=== PATIENT | male | born 1945 | race Caucasian/White ===

== ENCOUNTER 2022-09-26 06:32 | Outpatient (OUT) | payer MEDICARE, SELFPAY ==
[2022-09-26 07:20] LABS: Basophils Percent Auto 0.5 % (0.2-2.0); Eosinophils Absolute Auto 0.2 10^3/uL (0.0-0.7); Eosinophils Percent Auto 2.1 % (0.9-7.0); Hematocrit 39.8 % (42.0-54.0); Hemoglobin 12.9 g/dL (14.0-18.0); Immature Granulocytes Abs Auto 0.04 10^3/uL (0.00-0.03); Immature Granulocytes Pct Auto 0.5 % (0.0-0.5); Lymphocytes Absolute Auto 2.2 10^3/uL (1.2-3.8); Lymphocytes Percent Auto 25.1 % (20.5-60.0); Mean Corpuscular HGB Conc 32.4 g/dL (29.9-35.2); Mean Corpuscular Hemoglobin 31.1 pg (25.9-34.0); Mean Corpuscular Volume 95.9 fL (80.0-94.0); Mean Platelet Volume 8.5 fL (9.5-13.5); Monocytes Absolute Auto 0.8 10^3/uL (0.3-0.8); Monocytes Percent Auto 9.3 % (1.7-12.0); Neutrophils Absolute Auto 5.5 10^3/uL (1.4-6.5); Neutrophils Percent Auto 62.5 % (43.0-75.0); Platelet Count 363 10^3/uL (150-450); Red Blood Count 4.15 10^6/uL (4.70-6.10); Red Cell Distribution Width 12.9 % (11.0-15.0); White Blood Count 8.9 10^3/uL (4.0-11.0)
[2022-09-26 07:26] LABS: Alanine Aminotransferase 22 U/L (16-63); Albumin Globulin Ratio 0.8; Albumin Level 3.3 g/dL (3.4-5.0); Alkaline Phosphatase 87 U/L (46-116); Anion Gap 8.6; Aspartate Amino Transferase 17 U/L (15-37); BUN Creatinine Ratio 19.2; Bilirubin Total 0.2 mg/dL (0.2-1.0); Carbon Dioxide 31.7 mmol/L (21.0-32.0); Chloride 101 mmol/L (98-107); Chol HDL Ratio 2.7; Cholesterol 154 mg/dL (<=200); Estimated GFR (African America >60 (>=60); Estimated GFR (Non-African Ame >60 (>=60); Globulin 4.1 g/dL; Glucose 111 mg/dL (74-106); HDL Cholesterol 57 mg/dL (40-60); Potassium 4.3 mmol/L (3.5-5.1); Sodium 137 mmol/L (136-145); Total Protein 7.4 g/dL (6.4-8.2); Triglycerides 75 mg/dL (<=150)
[2022-09-26 07:32] LABS: Estimated Average Glucose 103 mg/dL; Glycohemoglobin A1C 5.2 % (4.5-6.2)
[2022-09-27 03:07] LABS: Vitamin B12 472 pg/mL (232-1245)
== END 2022-09-26 06:33 | disposition home or self-care (01) ==
LOC: LAB 06:33
PROVIDERS: PCP Family Medicine; Visit Provider Family Medicine
DX: E78.5 Hyperlipidemia, unspecified (principal); R73.9 Hyperglycemia, unspecified; D64.9 Anemia, unspecified; Z79.899 Other long term (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 therapy
CPT/HCPCS: 36415; 80053; 80061; 82607; 82746; 83036; 85025

== ENCOUNTER 2022-10-05 09:50 | Outpatient (OUT) | payer MEDICARE, SELFPAY ==
[2022-10-05 11:30] LABS: Prostate Specific Antigen Dx 2.33 ng/mL (<=4.00)
== END 2022-10-05 09:51 | disposition home or self-care (01) ==
LOC: LAB 09:51
PROVIDERS: PCP Family Medicine; Visit Provider Urology
DX: N40.1 Benign prostatic hyperplasia with lower urinary tract symptoms (principal)
CPT/HCPCS: 36415; 84153

== ENCOUNTER 2023-04-03 09:25 | Outpatient (OUT) | payer MEDICARE, SELFPAY ==
[2023-04-03 09:41] LABS: Basophils Percent Auto 0.4 % (0.2-2.0); Eosinophils Absolute Auto 0.2 10^3/uL (0.0-0.7); Eosinophils Percent Auto 1.8 % (0.9-7.0); Hematocrit 44.8 % (42.0-54.0); Hemoglobin 14.5 g/dL (14.0-18.0); Immature Granulocytes Abs Auto 0.03 10^3/uL (0.00-0.03); Immature Granulocytes Pct Auto 0.4 % (0.0-0.5); Lymphocytes Absolute Auto 2.5 10^3/uL (1.2-3.8); Lymphocytes Percent Auto 29.6 % (20.5-60.0); Mean Corpuscular HGB Conc 32.4 g/dL (29.9-35.2); Mean Corpuscular Hemoglobin 30.7 pg (25.9-34.0); Mean Corpuscular Volume 94.7 fL (80.0-94.0); Mean Platelet Volume 8.8 fL (9.5-13.5); Monocytes Absolute Auto 0.7 10^3/uL (0.3-0.8); Neutrophils Absolute Auto 5.1 10^3/uL (1.4-6.5); Neutrophils Percent Auto 59.8 % (43.0-75.0); Platelet Count 249 10^3/uL (150-450); Red Blood Count 4.73 10^6/uL (4.70-6.10); Red Cell Distribution Width 12.4 % (11.0-15.0); White Blood Count 8.5 10^3/uL (4.0-11.0)
[2023-04-03 10:38] LABS: Alanine Aminotransferase 19 U/L (16-63); Albumin Globulin Ratio 0.9; Albumin Level 3.7 g/dL (3.4-5.0); Alkaline Phosphatase 66 U/L (46-116); Anion Gap 9.1; Aspartate Amino Transferase 14 U/L (15-37); BUN Creatinine Ratio 22.4; Bilirubin Total 0.4 mg/dL (0.2-1.0); Calcium 9.7 mg/dL (8.5-10.1); Carbon Dioxide 32.2 mmol/L (21.0-32.0); Chloride 102 mmol/L (98-107); Chol HDL Ratio 2.8; Cholesterol 182 mg/dL (<=200); Estimated GFR (African America >60 (>=60); Estimated GFR (Non-African Ame >60 (>=60); Glucose 103 mg/dL (74-106); HDL Cholesterol 64 mg/dL (40-60); Potassium 4.3 mmol/L (3.5-5.1); Sodium 139 mmol/L (136-145); Total Protein 7.7 g/dL (6.4-8.2); Triglycerides 79 mg/dL (<=150); VLDL CHOLESTEROL 15.8 mg/dL
[2023-04-03 10:44] LABS: Estimated Average Glucose 117 mg/dL; Glycohemoglobin A1C 5.7 % (4.5-6.2)
== END 2023-04-03 09:26 | disposition home or self-care (01) ==
LOC: LAB 09:25
PROVIDERS: PCP Family Medicine; Visit Provider Family Medicine
DX: E78.5 Hyperlipidemia, unspecified (principal); R73.9 Hyperglycemia, unspecified; D64.9 Anemia, unspecified; Z79.899 Other long term (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 therapy; R63.4 Abnormal weight loss
CPT/HCPCS: 36415; 80053; 80061; 82607; 82746; 83036; 84443; 85025

== ENCOUNTER 2023-06-27 14:10 | Emergency (ER) | payer MEDICARE, SELFPAY ==
[2023-06-27 14:14] VITALS: BP 146/87; PULSE 80; TEMP 36.4; O2SAT 98; BMI 25.1
--- NOTE | 2023-06-27 14:21 | PC.NURSE ---
red round raised abscess observed under left arm, no drainage observed
--- NOTE | 2023-06-28 15:01 | ED_ITS ---
Documented by User: Kimber Jainey 06/28/23 15:04 HPI - Skin/Abscess/Foreign Bdy General Chief complaint: Skin/Abscess/Foreign Body Stated complaint: UPPER EXTREMITY PAIN Time Seen by Provider: 06/27/23 14:37 Source: patient Mode of arrival: walk-in Limitations: no limitations History of Present Illness HPI narrative: 77-year-old male presents here with a chief complaint of left axillary pain. He states he has had pain and swelling to the left axilla for the last 3 to 4 days. Denies known history of abscess. Denies known history of MRSA. Small, palpable pea-sized area of induration, no fluctuance. Patient states it is tender. He denies any fevers or chills Related Data Home Medications ?Medication ?Instructions ?Recorded ?Confirmed finasteride 5 mg tablet 5 mg PO DAILY 06/27/23 06/27/23 simvastatin 40 mg tablet 40 mg PO DAILY 06/27/23 06/27/23 tiotropium bromide 2.5 2 inh inhalation Q24H PRN sob 06/27/23 06/27/23 mcg/actuation mist for inhalation (Spiriva Respimat) venlafaxine 75 mg capsule,extended 75 mg PO DAILY 06/27/23 06/27/23 release 24 hr Previous Rx's ?Medication ?Instructions ?Recorded cephalexin 500 mg capsule 500 mg PO Q8H 7 days #21 caps 06/27/23 mupirocin 2 % topical ointment 1 applic topical TID 14 days #15 06/27/23 grams Allergies Allergy/AdvReac Type Severity Reaction Status Date / Time penicillin G Allergy Mild Verified 06/27/23 14:14 Sulfa (Sulfonamide Allergy Mild Verified 06/27/23 14:14 Antibiotics) Review of Systems ROS Narrative All Systems are negative except as noted/marked.All systems reviewed and otherwise negative Exam Narrative Exam Narrative: Nurses note and vital signs reviewed and patient is not hypoxic. General: The patient appears well and in no apparent distress. Patient is resting comfortably on cart. Skin: Warm, dry, no pallor noted. Small papular area of induration to the left axillary area no fluctuance no acute abscess Head: Normocephalic, atraumatic Eye: Normal conjunctiva, no drainage, EOMI. PERRL Ears, Nose, Mouth, and Throat: oral mucosa is moist. Nares patent. Mouth without vesicles. Ear canals patent. Tm's without Erythema GI: Normal bowel sounds, no tenderness to palpation, no masses appreciated. No rebound, guarding, or rigidity noted. Musculoskeletal: The patient has no evidence of calf tenderness, no pitting edema, symmetrical pulses noted bilaterally Neurological: A&O x4, normal speech Psychiatric: Cooperative Constitutional Vital Signs, click to edit/add: Last Vital Signs Temp 97.5 F L 06/27/23 14:14 Pulse 80 06/27/23 14:14 Resp 18 06/27/23 14:14 BP 146/87 H 06/27/23 14:14 Pulse Ox 98 06/27/23 14:14 O2 Del Method Room Air 06/27/23 14:14 Course Vital Signs Vital signs: Vital Signs Temperature 97.5 F L 06/27/23 14:14 Pulse Rate 80 06/27/23 14:14 Respiratory Rate 18 06/27/23 14:14 Blood Pressure 146/87 H 06/27/23 14:14 Pulse Oximetry 98 06/27/23 14:14 Oxygen Delivery Method Room Air 06/27/23 14:14 Temperature 97.5 F L 06/27/23 14:14 Pulse Rate 80 06/27/23 14:14 Respiratory Rate 18 06/27/23 14:14 Blood Pressure 146/87 H 06/27/23 14:14 Pulse Oximetry 98 06/27/23 14:14 Oxygen Delivery Method Room Air 06/27/23 14:14 MDM - Skin/Abscess/Foreign Bdy MDM Narrative Medical decision making narrative: 77-year-old male presents here with a chief complaint of left axillary pain. He states he has had pain and swelling to the left axilla for the last 3 to 4 days. Denies known history of abscess. Denies known history of MRSA. Small, palpable pea-sized area of induration, no fluctuance. Patient states it is tender. He denies any fevers or chills Patient has a small area of induration and tenderness to left axillary area, may be palpable lymph node versus cyst. No abscess at this time. No reason for incision and drainage at this point. Patient told to use warm heat compresses to the area examination consistent with probable hidradenitis or folliculitis. Patient be discharged home with antibiotic. He will follow-up primary care physician. Patient and at bedside agree with plan of care. Medical Records Attestation: I reviewed the patient's medical records. Discharge Plan Discharge Stand Alone Forms: Portal Instructions Chief Complaint: Skin/Abscess/Foreign Body Clinical Impression: Hidradenitis suppurativa Patient Disposition: Home, Self-Care Time of Disposition Decision: 16:19 Condition: Fair Prescriptions / Home Meds: New cephalexin 500 mg capsule 500 mg PO Q8H 7 Days Qty: 21 0RF mupirocin 2 % ointment 1 applic topical TID 14 Days Qty: 15 0RF No Action finasteride 5 mg tablet 5 mg PO DAILY simvastatin 40 mg tablet 40 mg PO DAILY Spiriva Respimat 2.5 mcg/actuation mist 2 inh INHALATION Q24H PRN (Reason: sob) venlafaxine 75 mg capsule,extended release 24hr 75 mg PO DAILY Print Language: [place] Instructions: Hidradenitis Suppurativa (ED) Additional Instructions: Use warm compresses every hour while awake to the area to help with swelling and draining if it occurs. Take oral antibiotic and the ointment for the next 7 to 10 days. Call your truck engine technician/surgeon today or Friday to move up your appointment in 2 weeks for evaluation and definitive treatment if your doctor is able to. Referrals: KEITH ATKINSON [Primary Care Provider] - 1 week Discharge Date/Time: 06/27/23 16:35 Documented by User: Nick Seaman MD 07/02/23 19:53 HPI - Skin/Abscess/Foreign Bdy General Chief complaint: Skin/Abscess/Foreign Body Stated complaint: UPPER EXTREMITY PAIN Time Seen by Provider: 06/27/23 14:37 Related Data Home Medications ?Medication ?Instructions ?Recorded ?Confirmed finasteride 5 mg tablet 5 mg PO DAILY 06/27/23 06/27/23 simvastatin 40 mg tablet 40 mg PO DAILY 06/27/23 06/27/23 tiotropium bromide 2.5 2 inh inhalation Q24H PRN sob 06/27/23 06/27/23 mcg/actuation mist for inhalation (Spiriva Respimat) venlafaxine 75 mg capsule,extended 75 mg PO DAILY 06/27/23 06/27/23 release 24 hr Previous Rx's ?Medication ?Instructions ?Recorded cephalexin 500 mg capsule 500 mg PO Q8H 7 days #21 caps 06/27/23 mupirocin 2 % topical ointment 1 applic topical TID 14 days #15 06/27/23 grams Allergies Allergy/AdvReac Type Severity Reaction Status Date / Time penicillin G Allergy Mild Verified 06/27/23 14:14 Sulfa (Sulfonamide Allergy Mild Verified 06/27/23 14:14 Antibiotics) Exam Constitutional Vital Signs, click to edit/add: Last Vital Signs Temp 97.5 F L 06/27/23 14:14 Pulse 80 06/27/23 14:14 Resp 18 06/27/23 14:14 BP 146/87 H 06/27/23 14:14 Pulse Ox 98 06/27/23 14:14 O2 Del Method Room Air 06/27/23 14:14 Course Vital Signs Vital signs: Vital Signs Temperature 97.5 F L 06/27/23 14:14 Pulse Rate 80 06/27/23 14:14 Respiratory Rate 18 06/27/23 14:14 Blood Pressure 146/87 H 06/27/23 14:14 Pulse Oximetry 98 06/27/23 14:14 Oxygen Delivery Method Room Air 06/27/23 14:14 Temperature 97.5 F L 06/27/23 14:14 Pulse Rate 80 06/27/23 14:14 Respiratory Rate 18 06/27/23 14:14 Blood Pressure 146/87 H 06/27/23 14:14 Pulse Oximetry 98 06/27/23 14:14 Oxygen Delivery Method Room Air 06/27/23 14:14 MDM - Skin/Abscess/Foreign Bdy MDM Narrative Medical decision making narrative: 77-year-old male presents here with a chief complaint of left axillary pain. He states he has had pain and swelling to the left axilla for the last 3 to 4 days. Denies known history of abscess. Denies known history of MRSA. Small, palpable pea-sized area of induration, no fluctuance. Patient states it is tend er. He denies any fevers or chills Patient has a small area of induration and tenderness to left axillary area, may be palpable lymph node versus cyst. No abscess at this time. No reason for incision and drainage at this point. Patient told to use warm heat compresses to the area examination consistent with probable hidradenitis or folliculitis. Patient be discharged home with antibiotic. He will follow-up primary care physician. Patient and at bedside agree with plan of care. I, Dr Seaman, have reviewed the above progress note and course of action in the ER; agree with the above. I have personally seen and evaluated this patient, gone over history and physical, and discussed disposition and treatment plan with the patient. Discharge Plan Discharge Stand Alone Forms: Portal Instructions Chief Complaint: Skin/Abscess/Foreign Body Clinical Impression: Hidradenitis suppurativa Patient Disposition: Home, Self-Care Time of Disposition Decision: 16:19 Condition: Fair Prescriptions / Home Meds: New cephalexin 500 mg capsule 500 mg PO Q8H 7 Days Qty: 21 0RF mupirocin 2 % ointment 1 applic topical TID 14 Days Qty: 15 0RF No Action finasteride 5 mg tablet 5 mg PO DAILY simvastatin 40 mg tablet 40 mg PO DAILY Spiriva Respimat 2.5 mcg/actuation mist 2 inh INHALATION Q24H PRN (Reason: sob) venlafaxine 75 mg capsule,extended release 24hr 75 mg PO DAILY Print Language: [place] Instructions: Hidradenitis Suppurativa (ED) Additional Instructions: Use warm compresses every hour while awake to the area to help with swelling and draining if it occurs. Take oral antibiotic and the ointment for the next 7 to 10 days. Call your truck engine technician/surgeon today or Friday to move up your appointment in 2 weeks for evaluation and definitive treatment if your doctor is able to. Referrals: KEITH ATKINSON [Primary Care Provider] - 1 week Discharge Date/Time: 06/27/23 16:35
== END 2023-06-27 16:35 | disposition home or self-care (01) ==
PROVIDERS: Emergency Provider Emergency Medicine; PCP Family Medicine
DX: L73.2 Hidradenitis suppurativa (principal); Z79.899 Other long term (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 therapy
CPT/HCPCS: 99284

== ENCOUNTER 2023-09-22 08:55 | Emergency (ER) | payer MEDICARE, SELFPAY ==
[2023-09-22 08:59] VITALS: BP 164/98; PULSE 83; TEMP 36.6; O2SAT 97; BMI 23.6
[2023-09-22] MEDS: LIDOCAINE HCL 1% 100 MG/10 ML MDV INJ (09:40)
--- NOTE | 2023-09-22 09:45 | ED.GENADUL1 ---
HPI HPI - General Adult General Chief complaint: Urogenital-Male Stated complaint: BOIL ON RECTUM Time Seen by Provider: 09/22/23 08:57 Source: patient Mode of arrival: walk-in Limitations: no limitations History of Present Illness HPI narrative: 78-year-old male presents for painful raised area on his right buttock. It has been there for few days and there is been no trauma or drainage. He states he spends a lot of time in a wet bathing suit by his pool. No fever or vomiting. The pain is mild. He has never had anything like this before. He is also had a small amount of rash on his feet and he does not have an explanation for it. It has been there for a few weeks. Related Data Home Medications ?Medication ?Instructions ?Recorded ?Confirmed finasteride 5 mg tablet 5 mg PO DAILY 06/27/23 06/27/23 simvastatin 40 mg tablet 40 mg PO DAILY 06/27/23 06/27/23 tiotropium bromide 2.5 2 inh inhalation Q24H PRN sob 06/27/23 06/27/23 mcg/actuation mist for inhalation (Spiriva Respimat) venlafaxine 75 mg capsule,extended 75 mg PO DAILY 06/27/23 06/27/23 release 24 hr Previous Rx's ?Medication ?Instructions ?Recorded cephalexin 500 mg capsule 500 mg PO Q8H 7 days #21 caps 06/27/23 mupirocin 2 % topical ointment 1 applic topical TID 14 days #15 06/27/23 grams cephalexin 500 mg capsule 500 mg PO QID 10 days #40 caps 09/22/23 doxycycline hyclate 100 mg capsule 100 mg PO BID 10 days #20 caps 09/22/23 Allergies Allergy/AdvReac Type Severity Reaction Status Date / Time penicillin G Allergy Mild Verified 09/22/23 08:59 Sulfa (Sulfonamide Allergy Mild Verified 09/22/23 08:59 Antibiotics) Opioid HPI Opioid Management Most Recent Opioid Data: No Data to Display Review of Systems ROS Narrative A ten point review of systems is negative except as noted above. Exam Narrative Exam Narrative: Nurses note and vital signs reviewed and patient is not hypoxic. General: The patient appears well and in no apparent distress. Patient is resting comfortably on cart. Skin: Warm, dry, no pallor noted. There is no rash noted. Head: Normocephalic, atraumatic Eye: Normal conjunctiva, no drainage Ears, Nose, Mouth, and Throat: oral mucosa is moist. Nares patent. Cardiovascular: Regular Rate and Rhythm Respiratory: Patient is in no distress, no accessory muscle use, lungs are clear to auscultation, no wheezing, rales or rhonchi Back: non-tender GI: Soft and nontender. On the medial aspect of the right buttock is an indurated raised erythematous area. There is some areas of what appear to be eczema on the buttock skin as well. The indurated area is 2 cm in diameter. Musculoskeletal: The patient has no evidence of calf tenderness, no pitting edema, symmetrical pulses noted bilaterally Neurological: A&O, normal speech Psychiatric: Cooperative Constitutional Vital Signs, click to edit/add: Last Vital Signs Temp 97.8 F 09/22/23 08:59 Pulse 83 09/22/23 08:59 Resp 20 09/22/23 08:59 BP 164/98 H 09/22/23 08:59 Pulse Ox 97 09/22/23 08:59 O2 Del Method Room Air 09/22/23 08:59 Course Vital Signs Vital signs: Vital Signs Temperature 97.8 F 09/22/23 08:59 Pulse Rate 83 09/22/23 08:59 Respiratory Rate 20 09/22/23 08:59 Blood Pressure 164/98 H 09/22/23 08:59 Pulse Oximetry 97 09/22/23 08:59 Oxygen Delivery Method Room Air 09/22/23 08:59 Temperature 97.8 F 09/22/23 08:59 Pulse Rate 83 09/22/23 08:59 Respiratory Rate 20 09/22/23 08:59 Blood Pressure 164/98 H 09/22/23 08:59 Pulse Oximetry 97 09/22/23 08:59 Oxygen Delivery Method Room Air 09/22/23 08:59 Medical Decision Making MDM Narrative Medical decision making narrative: The packing is to be removed in 24 hours and he was placed on Keflex and doxycycline because of allergies. He has taken Keflex in the past. Treatment diagnosis and follow-up were discussed with the patient and his . Differential Diagnosis Differential Diagnosis: Abscess, cellulitis Discharge Plan Discharge Stand Alone Forms: Portal Instructions Chief Complaint: Urogenital-Male Clinical Impression: Abscess Patient Disposition: Home, Self-Care Time of Disposition Decision: 09:42 Condition: Good Prescriptions / Home Meds: New doxycycline hyclate 100 mg capsule 100 mg PO BID 10 Days Qty: 20 0RF cephalexin 500 mg capsule 500 mg PO QID 10 Days Qty: 40 0RF No Action finasteride 5 mg tablet 5 mg PO DAILY simvastatin 40 mg tablet 40 mg PO DAILY Spiriva Respimat 2.5 mcg/actuation mist 2 inh INHALATION Q24H PRN (Reason: sob) venlafaxine 75 mg capsule,extended release 24hr 75 mg PO DAILY cephalexin 500 mg capsule 500 mg PO Q8H 7 Days Qty: 21 0RF mupirocin 2 % ointment 1 applic topical TID 14 Days Qty: 15 0RF Print Language: Turkmen Instructions: Abscess (ED), Incision and Drainage (ED) Additional Instructions: Packing is to be removed tomorrow. After the packing is removed warm soaks for 10 minutes 4 times a day. Finish all the antibiotics. Referrals: KEITH ATKINSON [Primary Care Provider] - 1 week Procedures ED Procedure Instructions Procedures Procedures: The following procedure was performed by me. Local infiltration was carried out with 1% lidocaine without epinephrine resulting in complete skin anesthesia. The area was prepped with Betadine x 3 and draped sterilely and using a #11 blade the abscess was incised and drained of a small amount of bloody purulence. Packing was placed, quarter inch iodoform. No complications and he tolerated the procedure well.
== END 2023-09-22 10:11 | disposition home or self-care (01) ==
PROVIDERS: Emergency Provider Emergency Medicine; PCP Family Medicine
DX: L02.31 Cutaneous abscess of buttock (principal)
CPT/HCPCS: 10060; 99283

== ENCOUNTER 2023-10-09 09:10 | Outpatient (OUT) | payer MEDICARE, SELFPAY ==
--- OUTSIDE RECORDS SUMMARY | 2023-10-09 09:31 | XMS_ITS | CCD ---
Author Organization [facility] Care Team Providers Care Tin Pourer Name Role Phone Keith Atkinson Unavailable Keith Puente Unavailable Keith Atkinson Primary Care Physician Teetee Gonzalez Unavailable Unavailable GIRVIN, DR PARKER Admitting Unavailable GIRVIN, DR PARKER Attending Unavailable GIRVIN, DR PARKER Consulting Unavailable GIRVIN, DR PARKER Primary Care Unavailable JOY, DR GANN Attending Unavailable JOY, DR GANN Consulting Unavailable JOY, DR GANN Admitting Unavailable GIRVIN, DR PARKER Primary Care Unavailable GIRVIN, DR PARKER Consulting Unavailable GIRVIN, DR PARKER Primary Care Unavailable GIRVIN, DR PARKER Admitting Unavailable GIRVIN, DR PARKER Attending Unavailable GIRVIN, DR PARKER Consulting Unavailable JOY, Moise Bills Attending Unavailable JOY, Moise Bills Attending Unavailable JOY, Moise Bills Attending Unavailable JOY, Moise Bills Admitting Unavailable JOY, Moise R Referring Unavailable JOY, Moise Bills Attending Unavailable JOY, Moise Bills Attending Unavailable Allergies Allergy Classification Reported Allergen(s) Allergy Type Date of Onset Reaction(s) Facility (20 sources) Penicillin; Translations: [penicillin] Drug Allergy hives [facility] Repository (20 sources) Sulfacetamide Drug Allergy [employer] Other (4 sources) Penicillins; Translations: [penicillins] Drug allergy Hives [facility] (4 sources) Sulfonamides (Antibiotic); Translations: [sulfa drugs] Drug allergy Hives [facility] (1 source) Sulfonamides (Antibiotic) Drug allergy (disorder) [facility] Repository Medications Current Medications Medication Drug Class(es) Dates Sig (Normalized) Sig (Original) [id number] 200 actuat albuterol 0.09 mg/actuat metered dose inhaler (8 sources) beta2-Adrenergic Agonist Start: 06-07-2019 ProAir HFA 108 (90 Base) MCG/ACT NICK 2 inhalations Inhalation up to 4 times per day prn May, Active bisacodyl 5 mg delayed release oral tablet (14 sources) Stimulant Laxative Start: 08-02-2021 take 2 tablets by mouth once daily as needed Dulcolax 5 MG 2 tab Orally Once a day prn July, Active ciprofloxacin 500 mg oral tablet (1 source) Quinolone Antimicrobial Start: 05-12-2023 End: 06-09-2023 take 1 tablet by mouth every twelve hours Cipro 500 mg Tab 500 mg = 1 tab(s), Oral, q12hr, X 4 week(s), # 56 tab(s), Refills(s) 0, Pharmacy: [facility]/pharmacy #[id number], 177, cm, 01/27/23 11:11:00 EST, Height/Length Dosing, 74, kg, 01/27/23 11:11:00 EST, Weight Dosing Start Date: 05/12/23 Stop Date: 06/09/23 Status: Ordered Coenzyme Q10 200 mg oral capsule (3 sources) Start: 07-11-2017 take 1 capsule by mouth once daily Coenzyme Q10 200 mg oral capsule 1cap, Oral, Daily, Refills(s) 0, High cholesterol Start Date: 07/11/17 Status: Ordered dicyclomine hydrochloride 20 mg oral tablet (10 sources) Anticholinergic Start: 03-29-2019 take 1 mg by mouth four times daily dicyclomine 20 mg Tab mg tab(s), Oral, QID, Refills(s) 0 Start Date: 03/29/19 Status: Ordered Dicyclomine HCl 20 MG 1 tablet Orally q6-8 hrs prn Active docusate sodium 50 mg / sennosides, retirement 8.6 mg oral tablet (3 sources) Start: 05-09-2021 take 2 tablets by mouth every twelve hours Senokot S 8.6-50 MG 2 TABLETS Orally TWICE A DAY for 30 day(s) Apr, Active doxycycline hyclate 100 mg oral capsule (4 sources) Tetracycline-class Drug Start: 04-04-2021 take 1 capsule by mouth every twelve hours Doxycycline Hyclate 100 MG 1 capsule Orally Twice a day for 10 day(s) Mar, Active finasteride 5 mg oral tablet (20 sources) 5-alpha Reductase Inhibitor Start: 10-08-2021 take 1 tablet by mouth once daily finasteride 5 mg Tab 5 mg = 1 tab(s), Oral, Daily, # 90 tab(s), Refills(s) 3, Pharmacy: [facility] 177, cm, 10/11/22 8:05:00 EDT, Height/Length Dosing, 74.4, kg, 10/11/22 8:05:00 EDT, Weight Dosing Start Date: 11/28/22 Status: Ordered Fish Oils (3 sources) Start: 01-10-2017 take 1200 mg by mouth once daily Fish Oil 1,200 mg, Oral, Daily, Refill(s) 0, Prophylaxis Start Date: 01/10/17 Status: Ordered hyoscyamine sulfate 0.125 mg oral tablet (1 source) Start: 03-29-2019 take 1 tablet by mouth four times daily hyoscyamine 0.125 mg oral Tab 0.125 mg = 1 tab(s), Oral, QID, Refills(s) 0 Start Date: 03/29/19 Status: Ordered meloxicam 15 mg oral tablet (3 sources) Nonsteroidal Anti-inflammatory Drug Start: 03-04-2019 take 1 mg by mouth once daily meloxicam 15 mg oral tablet mg tab(s), Oral, Daily, Refills(s) 0 Start Date: 03/04/19 Status: Ordered metroNIDAZOLE 500 mg oral tablet (1 source) Nitroimidazole Antimicrobial Start: 08-02-2021 take 1 tablet by mouth every twelve hours metroNIDAZOLE 500 MG 1 tablet Orally Twice a day for 10 day(s) July, Active nystatin [id number] unt/ml oral suspension (10 sources) Polyene Antifungal Start: 05-20-2022 Nystatin 630705 UNIT/ML 5 ml (2.5 ml each side of the mouth) Mouth/Throat qid for 7 days Apr, Active Start: 05-20-2022 Nystatin 23643 0 UNIT/ML 5 ml (2.5 ml each side of the mouth) Mouth/Throat qid for 7 days Apr, Active pantoprazole 40 mg delayed release oral tablet (14 sources) Proton Pump Inhibitor Start: 08-02-2021 take 1 tablet by mouth every twenty-four hours Pantoprazole Sodium 40 MG 1 tablet Orally Once a day July, Active ProAir HFA 108 (90 Base) MCG/ACT (13 sources) Start: 06-07-2019 ProAir HFA 108 (90 Base) MCG/ACT 2 inhalations Inhalation up to 4 times per day May, Active promethazine hydrochloride 25 mg oral tablet (3 sources) Phenothiazine Start: 03-29-2019 take 1 mg by mouth every six hours as needed for nausea promethazine 25 mg Tab mg tab(s), Oral, q6hr, PRN as needed for nausea/vomiting, Refills(s) 0 Start Date: 03/29/19 Status: Ordered simvastatin 40 mg oral tablet (20 sources) HMG-CoA Reductase Inhibitor Start: 01-10-2017 take 40 mg by mouth once daily at bedtime simvastatin 40 mg, Oral, Once a day (at bedtime), Refills(s) 0, High cholesterol Start Date: 01/10/17 Status: Ordered sucralfate 1000 mg oral tablet (1 source) Aluminum Complex Start: 07-20-2021 take 1 tablet by mouth every eight hours Carafate 1 GM 1 tablet on an empty stomach Orally tid for 30 day(s) Jun, Active 10 actuat tiotropium 0.0025 mg/actuat inhalation spray (20 sources) Anticholinergic Start: 07-30-2019 take 2 puff(s) by inhalation once daily Spiriva Respimat 2.5 MCG/ACT 2 puffs Inhalation Once a day quantity sufficient for 90 days July, Active Start: 07-30-2019 take 2 puff(s) by in halation once daily Spiriva Respimat 2.5 MCG/ACT 2 puffs Inhalation Once a day quantity sufficient for 90 days July, Active valACYclovir 500 mg oral tablet (20 sources) Herpesvirus Nucleoside Analog DNA Polymerase Inhibitor, Herpes Simplex Virus Nucleoside Analog DNA Polymerase Inhibitor, Herpes Zoster Virus Nucleoside Analog DNA Polymerase Inhibitor Start: 01-10-2017 take 500 mg by mouth once daily Valtrex 500 mg, Oral, Daily, herpes virus left, Refills(s) 0, Other (see comment) Start Date: 01/10/17 Status: Ordered valACYclovir HCl 500 mg TAKE 1 TABLET THREE TIMES A DAY FOR 10 DAYS DIRECTED NEEDED prn Not-Taking/PRN 24 hr venlafaxine 75 mg extended release oral capsule (20 sources) Serotonin and Norepinephrine Reuptake Inhibitor Start: 03-04-2019 take 1 capsule by mouth once daily venlafaxine 75 mg Cap-ER 75 mg = 1 cap(s), Oral, Daily, # 30 cap(s), Refills(s) 0 Start Date: 03/04/19 Status: Ordered vitamin b12 1 mg extended release oral tablet (6 sources) Vitamin B12 Start: 09-07-2020 take 1 tablet by mouth once daily Vitamin B12 1000 MCG 1 tablet Orally qd x6 days a week Aug, Active Start: 01-10-2017 Vitamin B-12 1 00 microgram, Oral, MonFri, Refills(s) 0, Prophylaxis Start Date: 01/10/17 Status: Ordered Vitamin B12 1000 MCG (18 sources) Start: 09-07-2020 take 1 tablet by trang once daily Vitamin B12 1000 MCG 1 tablet Orally qd x6 days a week Aug, Active Start: 09-07-2020 take 1 tablet by mouth once da mely Vitamin B12 1000 MCG 1 tablet Orally Once a day Aug, Active Completed/Discontinued Medications Medication Drug Class(es) Dates Sig (Normalized) Sig (Original) clotrimazole 10 mg oral lozenge (8 sources) Azole Antifungal Start: 05-20-2022 Clotrimazole 10 MG dissolve 1 osvaldo Mouth/Throat five times a day for 7 days Apr, Not-Taking/PRN lubiprostone 0.024 mg oral capsule (3 sources) Chloride Channel Activator Start: 03-30-2019 take 1 capsule by mouth twice daily Amitiza 24 mcg Cap 24 microgram = 1 cap(s), Oral, BID, # 60 cap(s), Refills(s) 0, Pharmacy: [facility]/pharmacy #[id number] Start Date: 03/30/19 Status: Ordered Problems Active Problems Problem Classification Problem Date Documented Da te Episodic/Chronic Abdominal pain (20 sources) Abdominal pain; Translations: [Unspecified abdominal pain] Onset: 03-13-2021 Resolved: 05-09-2021 Episodic Anxiety disorders (20 sources) Mixed anxiety and depressive disorder; Translations: [Anxiety disorder, unspecified] Onset: 03-13-2021 Resolved: 09-13-2021 Chronic Calculus of urinary tract (3 sources) History of calculus of kidney; Translations: [Personal history of urinary calculi] Onset: 01-27-2023 Episodic Chronic obstructive pulmonary disease and bronchiectasis (20 sources) Chronic obstructive lung disease; Translations: [Chronic obstructive pulmonary disease, unspecified] Onset: 03-13-2021 Resolved: 09-13-2021 Chronic Deficiency and other anemia (6 sources) Anemia, unspecified; Translations: [ANEMIA UNSPECIFIED] Onset: 03-13-2021 Resolved: 09-13-2021 Episodic Diabetes mellitus without complication (6 sources) Hyperglycemia, unspecified; Translations: [HYPERGLYCEMIA UNSPECIFIED] Onset: 03-13-2021 Resolved: 09-13-2021 Episodic Diseases of mouth; excluding dental (1 source) Other forms of stomatitis Episodic Disorders of lipid metabolism (20 sources) Hyperlipidemia; Translations: [Hyperlipidemia, unspecified] Onset: 03-13-2021 Resolved: 09-13-2021 Chronic Diverticulosis and diverticulitis (3 sources) Diverticulitis 01-13-2017 Chronic Esophageal disorders (20 sources) Acid reflux; Translations: [Gastro-esophageal reflux disease without esophagitis] Onset: 09-13-2021 Resolved: 09-13-2021 Chronic Gastrointestinal hemorrhage (20 sources) Melena; Translations: [Melena] Episodic Genitourinary symptoms and ill-defined conditions (6 sources) Blood in urine; Translations: [Gross hematuria] Onset: 01-27-2023 03-19-2019 Episodic Hyperplasia of prostate (20 sources) Benign prostatic hyperplasia; Translations: [Benign prostatic hyperplasia without lower urinary tract symptoms] Onset: 03-13-2021 Resolved: 09-13-2021 Chronic Intestinal infection (3 sources) Bacterial overgrowth syndrome 03-29-2019 Episodic Mycoses (2 sources) Candidal stomatitis Episodic Nonspecific chest pain (1 source) Chest pain, unspecified Episodic Other aftercare (6 sources) Other 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 system 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 (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 therapy; Translations: [OTH DETENTION CURRENT DRUG THERAPY] Onset: 03-13-2021 Resolved: 09-13-2021 Episodic Other gastrointestinal disorders (20 sources) Irritable bowel syndrome; Translations: [Irritable bowel syndrome without diarrhea] 03-29-2019 Chronic Other gastrointestinal disorders (14 sources) Irritable bowel syndrome characterized by constipation; Translations: [Irritable bowel syndrome with constipation] Chronic Other gastrointestinal disorders (3 sources) Chronic idiopathic constipation 03-29-2019 Chronic Other gastrointestinal disorders (20 sources) Constipation; Translations: [Constipation, unspecified] Episodic Other gastrointestinal disorders (4 sources) Constipation, unspecified Onset: 03-13-2021 Resolved: 09-13-2021 Episodic Other gastrointestinal disorders (3 sources) Dysphagia 03-29-2019 Episodic Other lower respiratory disease (2 sources) Shortness of breath Episodic Other nutritional; endocrine; and metabolic disorders (3 sources) Abnormal weight gain Onset: 03-13-2021 Resolved: 03-13-2021 Episodic Other nutritional; endocrine; and metabolic disorders (1 source) Abnormal weight loss Episodic Other screening for suspected conditions (not mental disorders or infectious disease) (10 sources) Abnormal results of thyroid function studies; Translations: [Abnormal blood-gas level] Onset: 03-13-2021 Resolved: 09-13-2021 Episodic Residual codes; unclassified (4 sources) Other amnesia Onset: 03-13-2021 Resolved: 09-13-2021 Episodic Screening and history of mental health and substance abuse codes (3 sources) Ex-smoker 03-29-2019 Episodic Spondylosis; intervertebral disc disorders; other back problems (20 sources) Degeneration of lumbar intervertebral disc; Translations: [Other intervertebral disc degeneration, lumbar region] Chronic Unclassified (3 sources) Patient encounter status 03-29-2019 Viral infection (2 sources) Herpesviral vesicular dermatitis Onset: 09-13-2021 Resolved: 09-13-2021 Episodic Past or Other Problems Problem Classification Problem Date Documented Da te Episodic/Chronic Immunizations and screening for infectious disease (1 source) Contact with and (suspected) exposure to other viral communicable diseases Onset: 03-27-2021 Resolved: 03-27-2021 Episodic Malaise and fatigue (1 source) Other fatigue Onset: 03-27-2021 Resolved: 03-27-2021 Episodic Nausea and vomiting (1 source) Nausea Onset: 05-09-2021 Resolved: 05-09-2021 Episodic Other upper respiratory infections (1 source) Acute sinusitis, unspecified Onset: 04-04-2021 Resolved: 04-04-2021 Episodic Viral infection (1 source) COVID-19 Onset: 04-04-2021 Resolved: 04-04-2021 Results Test Name Value Interpretation Reference Range Facility Urology Office/Clinic Noteon 01-27-2023 Urology Office/Clinic Note Chief Complaint S/P TRUS/Bx HPI Staff F/u to TRUS BX done 01/14/23 to review pathology. Previous dx of BPH with urinary obstruction, elevated PSA and hx of kidney stone. *Finasteride 5mg qd KUB & MRI of prostate ordered at time of last encounter due to abdominal pain and increasing PSA. Pt refused both. Opted to schedule TRUS/BX Last noted visible blood in urine 1wk ago. States not much. Denies current pain/burning. Denies current abdominal pain. Admits to Hx of Kidney Stones. Still refusing KUB. History of Present Illness Tests reviewed: reviewed UA and Path Report. I have reviewed the previous health record information and history for this patient from . I have reviewed and verified the staff HPI to be accurate for this encounter. There have been no associated fever, chills, flank pain, or blood in the urine. Denies any urinary infections since last encounter. Review of Systems PHQ Score Initial Depression Screen Score: 0 ROS - Provider Constitutional: denies weight loss, denies hot flashes. Eyes: denies eye problems. Gastrointestinal: denies nausea, denies vomiting. Cardiovascular: denies chest pain or angina. Integumentary: no dryness Musculoskeletal: denies musculoskeletal symptoms. ENMT: denies otolaryngeal symptoms. Respiratory: no shortness of breath. Heme/Lymph: denies easy bleeding tendency, denies easy bruising tendency. Psychiatric: no confusion, no anxiety. Genitourinary: See HPI. Physical Exam Vitals & Measurements HR: 70(Peripheral) RR: 16 BP: 133/71 HT: 70 in HT: 177 cm WT: 74 kg WT: 162.8 lb BMI: 23.62 General Appearance: alert, no distress, well nourished, well developed male. Assessment/Plan 1. Elevated PSA (R97.20: Elevated prostate specific antigen [PSA]) KUB & MRI of prostate ordered at time of last encounter due to abdominal pain and increasing PSA. Pt refused both. Opted to schedule TRUS/BX Denies current pain/burning. S/p TRUS/BX 01/14/23 - path showed was benign PSA (Finasteride Effect) 02/28/20 - 0.84 (1.68) 10/04/21 - 0.33 (0.66) 10/05/22 - 2.33 (4.66) Discussed path report with pt, no prostate cancer, chronic inflammation. Advised pt that the inflammation is what causes his PSA to become elevated and there is no need to treat it if he has no signs of infection. Advised pt that we will continue to monitor his PSA. Follow up in 1 yr w/PSA. All questions/concerns were discussed. Pt to call the office if he encounters any issues prior. Pt acknowledges understanding. -Will order PSA. 2. BPH with urinary obstruction (N40.1: Benign prostatic hyperplasia with lower urinary tract symptoms) Pt is on Finasteride 5mg QD. Pt states that his stream is good, feels empty when hes done, has time to make it to the bathroom, denies any accidents, feels he may be voiding more often now than what he was in the past, voids about 3-4 times a day during the winter, depend s on what he is doing and what he is drinking. Pt states that these sxs are not bothersome. 3. Gross hematuria (R31.0: Gross hematuria) Last noted visible blood in urine 1wk ago. States not much. UA today shows large blood. 4. History of kidney stones (Z87.442: Personal history of urinary calculi) Had LLQ abd pain on and off, it is not severe. ? ureteral stone? no urine given today. Pt states he has had kidney stones in the past. Pt stated he had a slight pain that came and went on his Lt side. Was given order or KUB, pt had called our office and stated he did not want to get the KUB done due to not experiencing he pain anymore. Denies current abdominal pain. Still refusing KUB. Follow-up With When Contact Information BENITA SELF, Moise Bills, DOC In 1 year [facility] [address] [place] [address]- Additional Instructions: w/PSA Patient Education I, Lynette Rasmussen , personally scribed for Dr. Joy on 01/27/2023 11:58:09. . Documentation recorded by the scribe, Lynette Rasmussen, accurately reflects the services(s) I performed and decisions made by me. Problem List/Past Medical History Ongoing Bacterial overgrowth syndrome BPH with urinary obstruction Chronic idiopathic constipation Dysphagia Elevated PSA Former smoker Gross hematuria Hematuria History of kidney stones Hyperlipidemia IBS (irritable bowel syndrome) Screening for colon cancer Historical No qualifying data Procedure/Surgical History Transrectal biopsy of prostate using ultrasound guidance (01/14/2023), right elbow removal of hardware (07/24/2017), ORIF - Open reduction of fracture of elbow with internal fixation (01/15/2017), TURP - Transurethral resection of prostate (12/26/2011), Urodynamics (11/11/2011), TRUS (transrectal ultrasound) guided cryoablation of prostate (08/07/2010), Cystoscopy (03/30/2010), Arthroscopy, lower back surgery, neck surgery, Right hand third finger surgery. Medications Amitiza 24 m (more content not included)... Normal [facility] Comment on above: Result Comment: Elec tronically Signed By: Moise JOY MD\.br\Date and Time Signed: 01/27/23 11:59 EST\.br\Electronically Co-Signed By: Lynette Rasmussen\.br\Date and Time Co-Signed: 01/27/23 11:58 EST Prostate Histology ([facility]) on 01-20-2023 Prostate Histology Diagnosis Info Invalid Interpretation Code [facility] Comment on above: Result Comment: A:Pr ostate,Left Lateral Base:Needle Biopsy Interpretation - - Benign prostatic tissue. MicroScopic Description - B:Prostate,Left Lateral Mid:Needle Biopsy Interpretation - - Benign prostatic tissue. MicroScopic Description - C:Prostate,Left Lateral [place]:Needle Biopsy Interpretation - - Benign prostatic tissue. MicroScopic Description - D:Prostate,Left Base:Needle Biopsy Interpretation - - Benign prostatic tissue. MicroScopic Description - E:Prostate,Left Mid:Needle Biopsy Interpretation - - Benign prostatic tissue. MicroScopic Description - F:Prostate,Left [place]:Needle Biopsy Interpretation - - Benign prostatic tissue. MicroScopic Description - G:Prostate,Right Base:Needle Biopsy Interpretation - - Benign prostatic tissue. MicroScopic Description - H:Prostate,Right Mid:Needle Biopsy Interpretation - - Benign prostatic tissue. MicroScopic Description - I:Prostate,Right [place]:Needle Biopsy Interpretation - - Benign prostatic tissue with patchy chronic inflammation. MicroScopic Description - J:Prostate,Right Lateral Base:Needle Biopsy Interpretation - - Benign prostatic tissue. MicroScopic Description - K:Prostate,Right Lateral Mid:Needle Biopsy Interpretation - - Benign prostatic tissue with patchy chronic inflammation. MicroScopic Description - L:Prostate,Right Lateral [place]:Needle Biopsy Interpretation - - Benign prostatic tissue. MicroScopic Description - Gross Description Site ID:A color hammonds-white fixative Formalin cores 1 units cm Site ID:B color hammonds-white fixative Formalin cores 1 units cm Site ID:C color hammonds-white fixative Formalin cores 1 units cm Site ID:D color hammonds-white fixative Formalin cores 1 units cm partially stringy Site ID:E color hammonds-white fixative Formalin cores 1 units cm fragmented, partially stringy Site ID:F color hammonds-white fixative Formalin cores 1 units cm Site ID:G color hammonds-white fixative Formalin cores 2 units cm partially stringy Site ID:H color hammonds-white fixative Formalin cores 1 units cm partially stringy Site ID:I color hammonds-white fixative Formalin cores 1 units cm partially coiled Site ID:J color hammonds-white fixative Formalin cores 1 units cm fragmented, coiled Site ID:K color hammonds-white fixative Formalin cores 1 units cm Site ID:L color hammonds-white fixative Formalin cores 1 units cm stringy CPT code: 95717 x 12 Electronically signed by : on: 01/20/2023 12:00:15 Performed By: #### 1 [id number] ####[facility] [id number] [place] [address] Consent for Procedure/Surger yon 01-14-2023 Consent for Procedure/Surgery [id number]# 1.00TIFF Normal [facility] Consent for Treatmenton 12-23 Consent for Treatment [id number] .00TIFF Normal [facility] IntraOperative Documentson 1 IntraOperative Documents [id number]# 1.00TIFF [facility] Main OR Intraoperative Recor don 01-14-2023 Main OR Intraoperative Record IntraOp Document Type FTURO Summary Primary Physician: Moise JOY MD Finalized Date/Time: 01/14/23 10:46:07 Pt. Name: JB VAIL /Sex: 1945 Male Med Rec #: [id number] Physician: Moise OJY MD Financial #: [id number] Pt. Type: O Room/Bed: / Admit/Disch: 01/14/23 09:16:22 - Institution: Case Times FTURO Entry 1 Patient Times In Room 01/14/23 10:16:00 Out Room 01/14/23 10:37:00 Procedure Times Start 01/14/23 10:20:00 Stop 01/14/23 10:32:00 Anesthesia Times Last Modified By: ANDRADE Duque RN, Ruthann 01/14/23 10:32:45 Case Attendance FTURO Entry 1 Entry 2 Entry 3 Case Attendee Moise JOY MD, RN, COLTONOR, Jorge Lockhart Role Performed Surgeon - Primary Electronic Scale Tester - Primary Scrub - Primary Time In 01/14/23 10:16:00 01/14/23 10:16:00 01/14/23 10:16:00 Time Out 01/14/23 10:37:00 01/14/23 10:37:00 01/14/23 10:37:00 Procedure PROSTATE TRANSRECTAL PROSTATE TRANSRECTAL PROSTATE TRANSRECTAL ULTRASOUND WITH BIO(.) ULTRASOUND WITH BIO(.) ULTRASOUND WITH BIO(.) Comments Last Modified By: Dunia RAMOS, COLTONOR, Dunia RAMOS, ANDRADE, Dunia RAMOS, Calli ZAFAR 01/14/23 Calli 01/14/23 Calli 01/14/23 10:32:46 10:32:46 10:32:46 Surgical Procedures FTURO Entry 1 Procedure Description Procedure PROSTATE TRANSRECTAL Modifiers . ULTRASOUND WITH BIOPSY Surgeon Description prostate transfectak ultrasaound with biopsy Primary Procedure Yes Primary Surgeon Moise JOY MD Start 01/14/23 10:20:00 Stop 01/14/23 10:32:00 Anesthesia Type Local Surgical Service Urology Wound Class 2 - Clean-Contaminated Last Modified By: Dunia RAMOS, Calli ZAFAR 01/14/23 10:32:48 General Case Data FTURO Pre-Care Text: Classifies surgical wound, implements aseptic technique, initiates traffic control Entry 1 Case Information OR URO 1 FT Case Level None Wound Class 2 - Clean-Contaminated Specialty Urology Preop Diagnosis ELEVATED PSA Postop Same As Preop Yes Postop Diagnosis ELEVATED PSA Outcomes Met? Yes Last Modified By: ANDRADE Duque RN, Ruthann 01/14/23 09:32:51 Post-Care Text: The patient is free from signs and symptoms of infection EU IntraOp - FTURO Pre-Care Text: Implements protective measures prior to operative or invasive procedure, confirms identity before the operative or invasive procedure, verifies operative procedure, surgical site, and laterality Entry 1 EU Perioperative Protocols Procedure(s) PROSTATE TRANSRECTAL Patient Identity Birthday, ID Band ULTRASOUND WITH BIO(.) Verified (select at Check, Patient least 2): Participation Consents / H and P HandP, Surgery/Procedure Operative Site N/A Verified Consent Marking Verified Surgical Site Yes Laterality Verified n/a Verified Procedure Verified Yes Correct Patient Yes Position Verified Availability Equipment, Medication Time Out BENITA SELF, Moise Bills, Verified (If Participants ANDRADE Duque RN, Applicable) Calli Time Out Complete 01/14/23 10:19:00 Allergies Reviewed? Yes Allergies Reviewed Self/Patient With Body Position Lateral, right side up Prep Area none Prep Agents None Skin. Condition Unable to Visualize Additional Tissue Specimens Collected Vitals - EU Blood Pressure 127/69 Pulse 70 bpm Respirations 18 br/min SPO2 EBL 0 IandO - EU Total Intake 0 mL Total Output 0 mL Outcomes Met? Yes Last Modified By: ANDRADE Duque RN, Ruthann 01/14/23 10:27:12 Post-Care Text: The patient is free from signs and symptoms of injury caused by extraneous objects Sign Out FTURO Entry 1 Before Patient Leaves OR Nurse verbally Yes Nurse verbally Yes confirms with the confirms with the team the name of team that the procedure(s) instrument, sponge, recorded and needle counts are correct (or N/A) Nurse verbally Yes Nurse verbally n/a confirms with the confirms with the team how the team whether there specimen is labeled are any equipment (including patient problems to be name), if applicable addressed Sign Out Complete 01/14/23 10:32:00 Last Modified By: ANDRADE Duque RN, Ruthann 01/14/23 10:32:57 Case Comments Finalized By: ANDRADE Duque RN, Ruthann Document Signatures Signed By: ANDRADE Duque RN, Ruthann 01/14/23 10:32 ANDRADE Duque RN, Ruthann 01/14/23 10:46 Normal [facility] Main OR Preoperative Recordo n 01-14-2023 Main OR Preoperative Record Holding Area Document Type FTURO Summary Primary Physician: Moise JOY MD Finalized Date/Time: 01/14/23 10:20:23 Pt. Name: YAREDJB/Sex: 1945 Male Med Rec #: [id number] Physician: Moise JOY MD Financial #: [id number] Pt. Type: O Room/Bed: / Admit/Disch: 01/14/23 09:16:22 - Institution: Case Times Holding FTURO Pre-Care Text: Verifies consent for planned procedure, identifies individual values and wishes concerning care, includes family members in perioperative teaching Secures patient's records' belongings, and valuables, maintains patient's dignity and privacy, and maintains patient confidentiality Entry 1 In Holding 01/14/23 09:42:00 Outcomes Met? Yes Last Modified By: Rebecca Glez RN 01/14/23 09:42:11 Post-Care Text: The patient participates in decisions affecting his or her perioperative plan of care The patient's right to privacy is maintained Surgery Checklist FTURO Entry 1 Patient Birthday, ID Band Procedure History and Physical, Identification: Check, Patient Verification: Surgical Consent, With Participation Patient NPO after Midnight: n/a Personal Items: Glasses Limitations: none Complaints of Pain: No Skin Integrity Dry, Warm, [place] Vitals - EU Blood Pressure 127/69 Pulse 70 bpm Respirations 18 br/min SPO2 Additional None RN Reviewed Yes Specimens Collected Last Modified By: ANDRADE Duque RN, Ruthann 01/14/23 10:20:21 General Comments: 97.2 Finalized By: ANDRADE Duque RN, Ruthann Document Signatures Signed By: Rebecca Glez RN 01/14/23 09:44 ANDRADE Duque RN, Ruthann 01/14/23 10:20 Normal [facility] Operative Reporton 3 Operative Report Patient: JB VAIL Age: 77 years Sex: Male : 1945 Associated Diagnoses: None Author: Moise JOY MD Procedure Operative Information Details: Date/ Time: 01/14/2023 10:34:00. Pre-Op Dx: Elevated PSA - R97.20. Post-Op Dx: Same. Anesthesia Type: Local, Periprostatic Nerve Block. Procedure: Transrectal Ultrasound and Transrectal Ultrasound-Guided Biopsy of the Prostate. Complications: None. Risks/Benefits/Inform ed Consent: Surgical risks, benefits, details of the procedure have been explained to the patient, Full informed consent has been obtained. Intraoperative Information Prepped: The patient was brought to the office suite, placed in the modified left lateral Vela position, The patient was draped appropriately, 80 mg Gentamicin IM injection administered. Procedure: Then 2% Xylocaine jelly was used for intrarectal anesthesia, After waiting several minutes, a well lubricated ultrasound probe was introduced per rectum, The prostate was carefully evaluated in the AP and Sagittal views. Volume: 16 CC. Specimens Removed: A total of 12 biopsies were taken, 6 from each side, and sent to pathology. Devices Implanted: None. Postoperative Information Discharge: The patient tolerated the procedure well and was discharged home in satisfactory condition, The patient was instructed to (Finish antibiotics, Avoid strenuous activity, Go to the emergency room for gross bleeding, fever, or chills). Radiology Report Procedure: Transrectal Ultrasound of the Prostate, Transrectal US guided needle biopsy of the prostate. Narrative: Ultrasound probe is introduced and performed in the longitudinal and transverse plains, The gland measures (39 MM Length, 44 MM Width, 17 MM Depth, with a calculated volume of 16 CC), The prostatic capsule and seminal vesicles appear to be within normal limits, The peripheral zone demonstrates Calcifications, Rest of the prostate demonstrates No abnormalities, Ultrasound guidance was then utilized to obtain 12 biopsies, These were sent to pathology for evaluation. Normal [facility] Comment on above: Result Comment: Elec tronically Signed By: Moise JOY MD\.br\Date and Time Signed: 01/14/23 10:38 EDT Patient Educationon 01-15-20 23 Patient Education Custom Transrectal Ultrasound of the Prostate with US guided biopsy ? Even though there are no visible incisions, multiple prostate biopsies have been taken through the rectum and you need to follow some instructions to minimize the risks of bleeding. ? You may see some blood in your urine and stool for up to 1 week (and blood in the semen for several months) ? Diet -You may resume your normal diet, but you may want to avoid alcohol, carbonated drinks, caffeine, and spicy foods, which may increase the irritation from the surgery. -Drink plenty of water to keep the urine clear. ? Activity -You should limit any physical activity for about 48 hours -No heavy lifting or straining (10 pound limit) -No driving a car and limit long car rides for 2 days -No strenuous exercise -No sexual intercourse until this is discussed with your doctor ? Bowels -Try to keep your bowel movements soft to minimize straining to have a bowel movement. -You may use a stool softener or over the counter laxative if needed -Difficult bowel movement may lead to straining and bleeding from the prostate ? Medications -You may resume your home medications unless instructed otherwise -Hold aspirin, ibuprofen, Coumadin (warfarin) and other blood thinners for about two days or until there is no active bleeding unless otherwise instructed -Finish the antibiotic which you have already started ? Things to watch for which would require an Emergency Room visit or call 911: (this is not a complete list) -Persistent or heavy bleeding or blood clots from the rectum or in the urine -Inability to urinate -Fever over 101.5 degrees Fahrenheit, with or without chills -Severe drug reactions with itching, hives or rash -Tenderness or swelling of the calves, chest pain, or shortness of breath ? Please call the office to arrange for your post-operative appointment in 1-2 weeks [phone] or [phone] Normal [facility] Prostate Histology ([facility]) on 01-14-2023 PH Method of Extraction Needle Biopsy Normal [facility] Comment on above: Performed By: #### 1 [id number] ####[facility] [address] [place] [address] PH Number of Jars 2 Invalid Interpretation Code [facility] Comment on above: Performed By: #### 1 [id number] ####[facility] [address] [place] [address] PH Specimen 1 L Apx Prostate Normal [facility] Comment on above: Performed By: #### 1 [id number] ####[facility] [address] [place] [address] PH Specimen 10 R Lat Bse Prost Normal [facility] Comment on above: Performed By: #### 1 [id number] ####[facility] [address] [place] [address] PH Specimen 11 R Mid Prostate Normal [facility] Comment on above: Performed By: #### 1 [id number] ####[facility] [address] [place] [address] PH Specimen 12 R Lat Mid Prost Normal [facility] Comment on above: Performed By: #### 1 [id number] ####[facility] [address] [place] [address] PH Specimen 2 L Base Prostate Normal [facility] Comment on above: Performed By: #### 1 [id number] ####[facility] [address] [place] [address] PH Specimen 3 L Lat Apx Prost Normal [facility] Comment on above: Performed By: #### 1 [id number] ####[facility] [address] [place] [address] PH Specimen 4 L Lat Bse Prost Normal [facility] Comment on above: Performed By: #### 1 [id number] ####[facility] [address] [place] [address] PH Specimen 5 L Lat Mid Prost Normal [facility] Comment on above: Performed By: #### 1 [id number] ####[facility] [address] [place] [address] PH Specimen 6 L Mid Prost 1 Normal [facility] Comment on above: Performed By: #### 1 [id number] ####[facility] [address] [place] [address] PH Specimen 7 R Apx Prostate Normal [facility] Comment on above: Performed By: #### 1 [id number] ####[facility] [address] [place] [address] PH Specimen 8 R Base Prostate Normal [facility] Comment on above: Performed By: #### 1 [id number] ####[facility] [address] [facility] [place] [address] PH Specimen 9 R Lat Apx Prost Normal [facility] Comment on above: Performed By: #### 1 [id number] ####[facility] [address] [place] [address] PH Type of Service Technical Only Normal [facility] Comment on above: Performed By: #### 1 [id number] ####[facility] [address] [facility] [place] [address] Insurance Correspondenceon 1 Insurance Correspondence [id number]# 1.00TIFF Normal [facility] Patient Letter FTon 2022 Patient Letter [facility] December 13, 2022 JB VAIL [address] [place] [phone] : 1945 Dear Jb Vail, This letter is being sent regular and certified mail due to you refusing to schedule an MRI of the prostate because of your elevated PSA level. An elevated PSA level can be an early indicator for prostate cancer. Our records show you refused to have the MRI done. We can get you scheduled for a Prostate biopsy instead of a MRI of prostate to get a tissue sample to evaluate for cancer or negative tissue. Please call the office within 2 weeks of receipt of this letter so we can get this testing scheduled, and continue to provide you with quality care. Your failure to comply with this request will result in discharge from the practice due to your repeated noncompliance. Sincerely, Moise Joy M.D., F.A.C.S. [facility] [address] [place] [address] , option #3 Normal [facility] Ambulatory Visit Summaryon 0 10-11-2022 Ambulatory Visit Summary JB VAIL :1945 Visit Date:10/11/2022 Ambulatory Visit Instructions Your Diagnosis BPH with urinary obstruction Elevated PSA History of kidney stones Tests Performed MRI Pelvis (Soft Tissue) w/ + w/o contrast -- Results Pending -- XR Abdomen 1 View -- Results Pending -- Please visit your patient portal for your results or contact your primary care physician. Your Care Team Attending Physician - Moise JOY MD Primary Care Physician - Keith Atkinson DO This Is Your Medications List finasteride (finasteride 5 mg Tab) Contact prescribing physician if questions or concerns cyanocobalamin (Vitamin B-12) dicyclomine (dicyclomine 20 mg Tab) hyoscyamine (hyoscyamine 0.125 mg oral Tab) lubiprostone (Amitiza 24 mcg Cap) meloxicam (meloxicam 15 mg oral tablet) omega-3 polyunsaturated fatty acids (Fish Oil) promethazine (promethazine 25 mg Tab) simvastatin ubiquinone (Coenzyme Q10 200 mg oral capsule) valacyclovir (Valtrex) venlafaxine (venlafaxine 75 mg Cap-ER) Procedures Performed right elbow removal of hardware (07/24/2017), ORIF - Open reduction of fracture of elbow with internal fixation (01/15/2017), TURP - Transurethral resection of prostate (12/26/2011), Urodynamics (11/11/2011), TRUS (transrectal ultrasound) guided cryoablation of prostate (08/07/2010), Cystoscopy (03/30/2010), Arthroscopy, lower back surgery, neck surgery, Right hand third finger surgery. Discharge Vitals Heart Rate (Peripheral) 82 Respiratory Rate 16 Blood Pressure 130/84 Height 177 cm Height 70 in Weight 74.4 kg Weight 163.68 lb BMI 23.75 What to do next You Need to Schedule the Following Appointments Follow Up with BENITA SELF, Moise Bills, DOC When: Where: [facility] [address] , [place] [address]- Medications What How Much When Instructions Unchanged finasteride (finasteride 5 mg Tab) 1 Tablets By Mouth Every day Unchanged cyanocobalamin (Vitamin B-12) 100 Microgram By Mouth Friday & Friday Contact prescribing physician if questions or concerns Unchanged dicyclomine (dicyclomine 20 mg Tab) By Mouth 4 times a day Contact prescribing physician if questions or concerns Unchanged hyoscyamine (hyoscyamine 0.125 mg oral Tab) 1 Tablets By Mouth 4 times a day Contact prescribing physician if questions or concerns Unchanged lubiprostone (Amitiza 24 mcg Cap) 1 Capsules By Mouth 2 times a day Contact prescribing physician if questions or concerns Unchanged meloxicam (meloxicam 15 mg oral tablet) By Mouth Every day Contact prescribing physician if questions or concerns Unchanged omega-3 polyunsaturated fatty acids (Fish Oil) 1,200 Milligram By Mouth Every day Contact prescribing physician if questions or concerns Unchanged promethazine (promethazine 25 mg Tab) By Mouth Every 6 hours as needed for as needed for nausea/vomiting Contact prescribing physician if questions or concerns Unchanged simvastatin 40 Milligram By Mouth Once a day (at bedtime) Contact prescribing physician if questions or concerns Unchanged ubiquinone (Coenzyme Q10 200 mg oral capsule) 1cap By Mouth Every day Contact prescribing physician if questions or concerns Unchanged valacyclovir (Valtrex) 500 Milligram By Mouth Every day herpes virus left Contact prescribing physician if questions or concerns Unchanged venlafaxine (venlafaxine 75 mg Cap-ER) 1 Capsules By Mouth Every day Contact prescribing physician if questions or concerns Allergies penicillins (Hives) sulfa drugs (Hives) Problems Ongoing - Any problem that you are currently receiving treatment for. Bacterial overgrowth syndrome BPH with urinary obstruction Chronic idiopathic constipation Dysphagia Elevated PSA Former smoker Hematuria History of kidney stones Hyperlipidemia IBS (irritable bowel syndrome) Screening for colon cancer Normal [facility] Insurance Correspondenceon 0 10-11-2022 Insurance Correspondence [id number]# [id number] Normal [facility] Patient Educationon 10-12-19 23 Patient Education Oncology Prostate Cancer Screening Prostate cancer screening is testing that is done to check for the presence of prostate cancer in men. The prostate gland is a walnut-sized gland that is located below the bladder and in front of the rectum in males. The function of the prostate is to add fluid to semen during ejaculation. Prostate cancer is one of the most common types of cancer in men. Who should have prostate cancer screening? Screening recommendations vary based on age and other risk factors, as well as between the professional organizations who make the recommendations. In general, screening is recommended if: ? You are age 50 to 70 and have an average risk for prostate cancer. You should talk with your health care provider about your need for screening and how often screening should be done. Because most prostate cancers are slow growing and will not cause , screening in this age group is generally reserved for men who have a 10- to 15-year life expectancy. ? You are younger than age 50, and you have these risk factors: ? Having a father, brother, or uncle who has been diagnosed with prostate cancer. The risk is higher if your family member's cancer occurred at an early age or if you have multiple family members with prostate cancer at an early age. ? Being a male who is Black or is of [place] or sub-Saharan descent. In general, screening is not recommended if: ? You are younger than age 40. ? You are between the ages of 40 and 49 and you have no risk factors. ? You are 70 years of age or older. At this age, the risks that screening can cause are greater than the benefits that it may provide. If you are at high risk for prostate cancer, your health care provider may recommend that you have screenings more often or that you start screening at a younger age. How is screening for prostate cancer done? The recommended prostate cancer screening test is a blood test called the prostate-specific antigen (PSA) test. PSA is a protein that is made in the prostate. As you age, your prostate naturally produces more PSA. Abnormally high PSA levels may be caused by: ? Prostate cancer. ? An enlarged prostate that is not caused by cancer (benign prostatic hyperplasia, or BPH). This condition is very common in older men. ? A prostate gland infection (prostatitis) or urinary tract infection. ? Certain medicines such as male hormones (like testosterone) or other medicines that raise testosterone levels. A rectal exam may be done as part of prostate cancer screening to help provide information about the size of your prostate gland. When a rectal exam is performed, it should be done after the PSA level is drawn to avoid any effect on the results. Depending on the PSA results, you may need more tests, such as: ? A physical exam to check the size of your prostate gland, if not done as part of screening. ? Blood and imaging tests. ? A procedure to remove tissue samples from your prostate gland for testing (biopsy). This is the only way to know for certain if you have prostate cancer. What are the benefits of prostate cancer screening? ? Screening can help to identify cancer at an early stage, before symptoms start and when the cancer can be treated more easily. ? There is a small chance that screening may lower your risk of dying from prostate cancer. The chance is small because prostate cancer is a slow-growing cancer, and most men with prostate cancer from a different cause. What are the risks of prostate cancer screening? The main risk of prostate cancer screening is diagnosing and treating prostate cancer that would never have caused any symptoms or problems. This is called overdiagnosisand overtreatment. PSA screening cannot tell you if your PSA is high due to cancer or a different cause. A prostate biopsy is the only procedure to diagnose prostate cancer. Even the results of a biopsy may not tell you if your cancer needs to be treated. Slow-growing prostate cancer may not need any treatment other than monitoring, so diagnosing and treating it may cause unnecessary stress or other side effects. Questions to ask your health care provider ? When should I start prostate cancer screening? ? What is my risk for prostate cancer? ? How often do I need screening? ? What type of screening tests do I need? ? How do I get my test results? ? What do my results mean? ? Do I need treatment? Where to find more information ? The [place] [employer]: www.cancer.org ? [employer]: www.auanet.org Contact a health care provider if: ? You have difficulty urinating. ? You have pain when you urinate or ejaculate. ? You have blood in your urine or semen. ? You have pain in your back or in the area of your prostate. Summary ? Prostate cancer is a common type of cancer in men. The prostate gland is located below the bladder and in front of the rectum. This gland adds flu (more content not included)... Normal [facility] Urology Office/Clinic Noteon 10-11-2022 Urology Office/Clinic Note Chief Complaint BPH with urinary obstruction HPI Staff 1 year with PSA. Previous dx of BPH with urinary obstruction. Current PSA done 10/05/22 is 2.33 and previous done 10/04/21 was 0.33. Pt continues taking Finasteride 5mg QD. Dysuria: no Incomplete bladder emptying: pt states he empties well for the most part Hematuria: no Frequency: no Urgency: no Nocturia: depends on how much beer he has had sometimes 4-5x Stream: no straining or intermittency Leaking: no Post void dripping: no Wearing pads/ Depends: no Urge incontinence: no Stress incontinence: no Incontinence without Sensory Awareness: no Abdominal pain: a little on the left off and on for about a year now Flank pain: no Sexual complaints: no History of Present Illness Tests reviewed: reviewed PSA I have reviewed the previous health record information and history for this patient from Dr. Joy. I have reviewed and verified the staff HPI to be accurate for this encounter. There have been no associated fever, chills, flank pain, or blood in the urine. Denies any urinary infections since last encounter. Review of Systems PHQ Score Initial Depression Screen Score: 0 ROS - Provider Constitutional: denies weight loss, denies hot flashes. Eyes: denies eye problems. Gastrointestinal: denies nausea, denies vomiting. Cardiovascular: denies chest pain or angina. Integumentary: no dryness Musculoskeletal: denies musculoskeletal symptoms. ENMT: denies otolaryngeal symptoms. Respiratory: no shortness of breath. Heme/Lymph: denies easy bleeding tendency, denies easy bruising tendency. Psychiatric: no confusion, no anxiety. Genitourinary: See HPI. Physical Exam Vitals & Measurements HR: 82(Peripheral) RR: 16 BP: 130/84 HT: 70 in HT: 177 cm WT: 74.4 kg WT: 163.68 lb BMI: 23.75 General Appearance: alert, no distress, well nourished, well developed male. Assessment/Plan No UA given today. 1. BPH with urinary obstruction (N40.1: Benign prostatic hyperplasia with lower urinary tract symptoms) Pt is on Finasteride 5mg QD. Pt states he has frequency but he believes its due to the amount of beer he drinks during the summer. Will send a refill of finasteride today to pt's pharmacy. 2. Elevated PSA (R97.20: Elevated prostate specific antigen [PSA]) PSA 02/28/20 - 0.84 (1.68) 10/04/21 - 0.33 (0.66) 10/05/22 - 2.33 (4.66) Educated pt on the results of his PSA. PSA jumped 2 levels. Discussed having an MRI of the prostate. Order sent for MRI of Pelvis w/ and w/o Con. 3. History of kidney stones (Z87.442: Personal history of urinary calculi) has LLQ abd pain on and off. it is not severe. ? ureteral stone? will check kub. no urine given today. Pt states he has had kidney stones in the past. Pt states he has a slight pain that comes and goes on his Lt side. Discussed having a KUB to determine if the pt has kidney stones. KUB order given to pt. Follow up after KUB and MRI of prostate. All questions/concerns were discussed. Pt to call the office if he encounters any issues prior. Pt acknowledges understanding. Follow-up With When Contact Information BENITA SELF, Moise Bills, URL [facility] [address] Dr, [place] [address]- Additional Instructions: Patient Education Prostate Cancer Screening I, Lynette Rasmussen, personally scribed for Dr. Joy on 10/11/2022 08:31:54. . Documentation recorded by the scribe, Lynette Rasmussen, accurately reflects the services(s) I performed and decisions made by me. Problem List/Past Medical History Ongoing Bacterial overgrowth syndrome BPH with urinary obstruction Chronic idiopathic constipation Dysphagia Elevated PSA Former smoker Hematuria History of kidney stones Hyperlipidemia IBS (irritable bowel syndrome) Screening for colon cancer Historical No qualifying data Procedure/Surgical History right elbow removal of hardware (07/24/2017), ORIF - Open reduction of fracture of elbow with internal fixation (01/15/2017), TURP - Transurethral resection of prostate (12/26/2011), Urodynamics (11/11/2011), TRUS (transrectal ultrasound) guided cryoablation of prostate (08/07/2010), Cystoscopy (03/30/2010), Arthroscopy, lower back surgery, neck surgery, Right hand third finger surgery. Medications Amitiza 24 mcg Cap, 24 mcg= 1 cap(s), Oral, BID Coenzyme Q10 200 mg oral capsule, 1cap, Oral, Daily dicyclomine 20 mg Tab, Oral, QID finasteride 5 mg Tab, 5 mg= 1 tab(s), Oral, Daily, 3 refills Fish Oil, 1200 mg, Oral, Daily hyoscyamine 0.125 mg oral Tab, 0.125 mg= 1 tab(s), Oral, QID meloxicam 15 mg oral tablet, Oral, Daily promethazine 25 mg Tab, Oral, q6hr, PRN simvastatin, 40 mg, Oral, Once a day (at bedtime) Valtrex, 500 mg, Oral, Daily venlafaxine 75 mg Cap-ER, 75 mg= 1 cap(s), Oral, Daily Vitamin B-12, 100 mcg, Oral, MonFri Allergies penicillins (Hives) sulfa drugs (Hives) Soci (more content not included)... Normal [facility] Comment on above: Result Comment: Elec tronically Signed By: Moise JOY MD\.br\Date and Time Signed: 10/11/22 08:36 EDT\.br\Electronically Co-Signed By: Lynette Rasmussen.br\Date and Time Co-Signed: 10/11/22 08:32 EDT Lab [facility] 10-07-2022 Lab Reports [id number] .00CD:127 [facility] Lab Reports [id number] .00CD:127 [facility] CBC AUTO DIFFon 03-25-2022 BASO # 0.0 103/ul Normal 0.0-0.1 [facility] Comment on above: Performed By: #### L IPID, CMP, TSH #### [facility] [address] [address] [address] Peewee Russell Basophils/100 WBC (Bld) 0.3 % Normal 0.2-2.0 [facility] Comment on above: Performed By: #### L IPID, CMP, TSH #### [facility] [address] [address] [address] Peewee Russell EO # 0.1 103/ul Normal 0.0-0.7 [facility] Comment on above: Performed By: #### L IPID, CMP, TSH #### [facility] [address] [place] [address] Dr. Peewee Russell Eosinophils/100 WBC (Bld) 1.3 % Normal 0.9-7.0 [facility] Comment on above: Performed By: #### L IPID, CMP, TSH #### [facility] [address] [place] [address] Dr. Peewee Russell Erythrocyte distribution width (RBC) [Ratio] 12.4 % Normal 11.0-15.0 [facility] Comment on above: Performed By: #### L IPID, CMP, TSH #### [facility] [address] [place] [address] Dr. Peewee Russell Hematocrit (Bld) [Volume fraction] 43.2 % Normal 42.0-54.0 [facility] Comment on above: Performed By: #### L IPID, CMP, TSH #### [facility] [address] [place] [address] Dr. Peewee Russell Hemoglobin (Bld) [Mass/Vol] 14.3 g/dL Normal 14.0-18.0 [facility] Comment on above: Performed By: #### L IPID, CMP, TSH #### [facility] [address] [place] [address] Dr. Peewee Russell IG # 0.02 10e3/ul Normal 0.00-0.03 [facility] Comment on above: Performed By: #### L IPID, CMP, TSH #### [facility] [address] [place] [address] Dr. Peewee Russell IG % 0.3 % Normal 0.0-0.5 [facility] Comment on above: Performed By: #### L IPID, CMP, TSH #### [facility] [address] [place] [address] Dr. Peewee Russell LYMPH # 2.4 103/ul Normal 1.2-3.8 [facility] Comment on above: Performed By: #### L IPID, CMP, TSH #### [facility] [address] [address] [address] Peewee Russell Lymphocytes/100 WBC (Bld) 30.0 % Normal 20.5-60.0 [facility] Comment on above: Performed By: #### L IPID, CMP, TSH #### [facility] [address] [address] [address] Peewee Russell MANUAL DIFF REQ NO Normal [facility] Comment on above: Performed By: #### L IPID, CMP, TSH #### [facility] [address] [address] [address] Peewee Russell MCH (RBC) [Entitic mass] 31.0 pg Normal 25.9-34.0 [facility] Comment on above: Performed By: #### L IPID, CMP, TSH #### [facility] [address] [place] [address] Dr. Peewee Russell MCHC (RBC) [Mass/Vol] 33.1 g/dL Normal 29.9-35.2 [facility] Comment on above: Performed By: #### L IPID, CMP, TSH #### [facility] [address] [address] [address] Peewee Russell MCV (RBC) [Entitic vol] 93.7 fL Normal 80.0-94.0 [facility] Comment on above: Performed By: #### L IPID, CMP, TSH #### [facility] [address] [address] [address] Peewee uRssell MONO # 0.7 103/ul Normal 0.3-0.8 [facility] Comment on above: Performed By: #### L IPID, CMP, TSH #### [facility] [address] [address] [address] Peewee Russell Monocytes/100 WBC (Bld) 8.4 % Normal 1.7-12.0 [facility] Comment on above: Performed By: #### L IPID, CMP, TSH #### [facility] [address] [address] [address] Peewee Russell NEUT # 4.7 103/ul Normal 1.4-6.5 [facility] Comment on above: Performed By: #### L IPID, CMP, TSH #### [facility] [address] [address] [address] Peewee Russell Neutrophils/100 WBC (Bld) 59.7 % Normal 43.0-75.0 [facility] Comment on above: Performed By: #### L IPID, CMP, TSH #### [facility] [address] [address] [address] Peewee Russell Platelet mean volume (Bld) [Entitic vol] 8.4 fL Critically low 9.5-13.5 [facility] Comment on above: Performed By: #### L IPID CMP, TSH #### [facility] [address] [address] [address] Peewee Russell PLT 208 103/ul Normal 150-450 [facility] Comment on above: Performed By: #### L IPID CMP, TSH #### [facility] [address] [address] [address] Peewee Russell RBC 4.61 106/ul Critically low 4.70-6.10 [facility] Comment on above: Performed By: #### L IPID CMP, TSH #### [facility] [address] [address] [address] Peewee Russell WBC 7.9 103/ul Normal 4.0-11.0 [facility] Comment on above: Performed By: #### L IPID, CMP, TSH #### [facility] [address] [address] [address] Peewee Russell GLYCOHEMOGLOBIN A1Con 2022 ADA RECOMMENDATION SEE BELOW Normal [facility] Comment on above: Result Comment: ADA RECOMMENDED LIMIT 4.0 - 6.0 ADA THERAPEUTIC TARGET < 7.0 ACTION SUGGESTED > 7.0 Performed By: #### L IPID, CMP, TSH #### [facility] [address] [place] [address] Dr. Peewee Russell Glucose [Mass/Vol] 108 mg/dL Normal [facility] Comment on above: Performed By: #### L IPID, CMP, TSH #### [facility] [address] [address] [address] Peewee Russell HbA1c (Bld) [Mass fraction] 5.4 % Normal 4.5-6.2 [facility] Comment on above: Performed By: #### L IPID, CMP, TSH #### [facility] [address] [address] [address] Peewee Russell LIPID PROFILEon 03-25-2022 CHOL-HDL RATIO NORM SEE BELOW Normal [facility] Comment on above: Result Comment: 3.3 - 4.4 LOW RISK 4.4 - 7.1 AVERAGE RISK 7.1 - 11.0 MODERATE RISK >11.0 HIGH RISK Performed By: #### L IPID, CMP, TSH #### [facility] [address] [address] [address] Peewee Russell Cholesterol [Mass/Vol] 188 mg/dL Normal <=200 [facility] Comment on above: Performed By: #### L IPID, CMP, TSH #### [facility] [address] [address] [address] Peewee Russell Cholesterol in HDL [Mass/Vol] 65 mg/dL Critically high 40-60 [facility] Comment on above: Performed By: #### L IPID, CMP, TSH #### [facility] [address] [address] [address] Peewee Russell Cholesterol in LDL [Mass/Vol] 107.6 mg/dL Normal [facility] Comment on above: Performed By: #### L IPID, CMP, TSH #### [facility] [address] [address] [address] Peewee Russell Cholesterol.total/Ch olesterol in HDL [Mass ratio] 2.9 {ratio} Normal [facility] Comment on above: Performed By: #### L IPID, CMP, TSH #### [facility] [address] [address] [address] Peewee Russell HDL NORMAL > or = 60 mg/dl - LO W CARDIOVASCULAR RISK <40 mg/dl - HIGH CARDIOVASCULAR RISK Normal [facility] Comment on above: Performed By: #### L IPID, CMP, TSH #### [facility] [address] [address] [address] Peewee Russell LDL CALC NORMAL SEE BELOW Normal [facility] Comment on above: Result Comment: <100 mg/dl OPTIMAL 100 - 129 mg/dl NEAR OR ABOVE OPTIMAL 130 - 159 mg/dl BORDERLINE HIGH 160 - 189 mg/dl HIGH >190 mg/dl VERY HIGH Performed By: #### L IPID, CMP, TSH #### [facility] [address] [address] [address] Peewee Russell Triglyceride [Mass/Vol] 77 mg/dL Normal <=150 [facility] Comment on above: Performed By: #### L IPID, CMP, TSH #### [facility] [address] [address] [address] Peewee Russell VLDL CALC 15.4 mg/dL Normal [facility] Comment on above: Performed By: #### L IPID, CMP, TSH #### [facility] [address] [address] [address] Peewee Russell PROF 14(COMP METB)on 023 Albumin [Mass/Vol] 3.7 g/dL Normal 3.4-5.0 [facility] Comment on above: Performed By: #### L IPID, CMP, TSH #### [facility] [address] [address] [address] Peewee Russell Albumin/Globulin [Mass ratio] 1.0 {ratio} Normal [facility] Comment on above: Performed By: #### L IPID, CMP, TSH #### [facility] [address] [address] [address] Peewee Russell ALP [Catalytic activity/Vol] 68 U/L Normal 46-116 [facility] Comment on above: Performed By: #### L IPID, CMP, TSH #### [facility] [address] [address] [address] Peewee Russell ALT [Catalytic activity/Vol] 19 U/L Normal 16-63 [facility] Comment on above: Performed By: #### L IPID, CMP, TSH #### [facility] [address] [address] [address] Peewee Rsusell Anion gap [Moles/Vol] 8.3 mmol/L Normal [facility] Comment on above: Performed By: #### L IPID, CMP, TSH #### [facility] [address] [address] [address] Peewee Russell AST [Catalytic activity/Vol] 20 U/L Normal 15-37 [facility] Comment on above: Performed By: #### L IPID, CMP, TSH #### [facility] [address] [address] [address] Peewee Russell Bilirubin [Mass/Vol] 0.5 mg/dL Normal 0.2-1.0 [facility] Comment on above: Performed By: #### L IPID, CMP, TSH #### [facility] [address] [address] [address] Peewee Russell Calcium [Mass/Vol] 9.1 mg/dL Normal 8.5-10.1 [facility] Comment on above: Performed By: #### L IPID, CMP, TSH #### [facility] [address] [address] [address] Peewee Russell Chloride [Moles/Vol] 103 mmol/L Normal 98-107 [facility] Comment on above: Performed By: #### L IPID, CMP, TSH #### [facility] [address] [address] [address] Peewee Russell CO2 [Moles/Vol] 32.9 mmol/L Critically high 21.0-32.0 [facility] Comment on above: Performed By: #### L IPID, CMP, TSH #### [facility] [address] [address] [address] Peewee Russell Creatinine [Mass/Vol] 0.75 mg/dL Normal 0.70-1.30 [facility] Comment on above: Performed By: #### L IPID, CMP, TSH #### [facility] [address] [address] [address] Peewee Russell EGFR-AF ERITREAN >60 Normal >=60 [facility] Comment on above: Performed By: #### L IPID, CMP, TSH #### [facility] [address] [address] [address] Peewee Russell EGFR-NON AF ERITREAN >60 Normal >=60 [facility] Comment on above: Performed By: #### L IPID, CMP, TSH #### [facility] [address] [address] [address] Peewee Russell Globulin (S) [Mass/Vol] 3.6 g/dL Normal [facility] Comment on above: Performed By: #### L IPID, CMP, TSH #### [facility] [address] [address] [address] Peewee Russell Glucose [Mass/Vol] 114 mg/dL Critically high 74-106 [facility] Comment on above: Performed By: #### L IPID, CMP, TSH #### [facility] [address] [place] [address] Dr. Peewee Russell Potassium [Moles/Vol] 4.2 mmol/L Normal 3.5-5.1 [facility] Comment on above: Performed By: #### L IPID, CMP, TSH #### [facility] [address] [place] [address] Dr. Peewee Russell Protein [Mass/Vol] 7.3 g/dL Normal 6.4-8.2 [facility] Comment on above: Performed By: #### L IPID, CMP, TSH #### [facility] [address] [address] [address] Peewee Russell Sodium [Moles/Vol] 140 mmol/L Normal 136-145 [facility] Comment on above: Performed By: #### L IPID, CMP, TSH #### [facility] [address] [place] [address] Dr. Peewee Russell Urea nitrogen [Mass/Vol] 16.0 mg/dL Normal 7.0-18.0 [facility] Comment on above: Performed By: #### L IPID, CMP, TSH #### [facility] [address] [place] [address] Dr. Peewee Russell Urea nitrogen/Creatinine [Mass ratio] 21.3 mg/mg Normal [facility] Comment on above: Performed By: #### L IPID CMP, TSH #### [facility] [address] [place] [address] Dr. Peewee Russell TSHon 03-25-2022 TSH 1.754 uIU/mL Normal 0.358-3.[address] [facility] Comment on above: Performed By: #### L IPID, CMP, TSH #### [facility] [address] [place] [address] Dr. Peewee Russell VIT B12 AND FOLATEon 023 Cobalamin (Vitamin B12) [Mass/Vol] 1002.0 pg/mL Critically high 193.0-986.0 [facility] Comment on above: Performed By: #### L FLORENCEID CMP, TSH #### [facility] [address] [place] [address] Dr. Peewee Russell FOLATE 16.00 ng/mL Normal 8.60-58.90 [facility] Comment on above: Performed By: #### L FLORENCEID CMP, TSH #### [facility] [address] [place] [address] Dr. Peewee Russell FOLATE ([facility])on Folate 7.8 ng/mL Normal >3.0 [facility] Comment on above: Result Comment: A se rum folate concentration of less than 3.1 ng/mL is considered to represent clinical deficiency. Performed By: #### L IPID, CMP, TSH #### [facility] [address] [place] [address] Dr. Peewee Russell CBC AUTO DIFFon 09-10-2021 BASO # 0.0 103/ul Normal 0.0-0.1 [facility] Comment on above: Performed By: #### C BC #### [facility] [address] [place] [address] Dr. Peewee Russell Basophils/100 WBC (Bld) 0.5 % Normal 0.2-2.0 [facility] Comment on above: Performed By: #### C BC #### [facility] [address] [place] [address] Dr. Peewee Russell EO # 0.1 103/ul Normal 0.0-0.7 [facility] Comment on above: Performed By: #### C BC #### [facility] [address] [place] [address] Dr. Peewee Russell Eosinophils/100 WBC (Bld) 1.3 % Normal 0.9-7.0 [facility] Comment on above: Performed By: #### C BC #### [facility] [address] [place] [address] Dr. Peewee Russell Erythrocyte distribution width (RBC) [Ratio] 13.3 % Normal 11.0-15.0 [facility] Comment on above: Performed By: #### C BC #### [facility] [address] [place] [address] Dr. Peewee Russell Hematocrit (Bld) [Volume fraction] 42.1 % Normal 42.0-54.0 [facility] Comment on above: Performed By: #### C BC #### [facility] [address] [place] [address] Dr. Peewee Russell Hemoglobin (Bld) [Mass/Vol] 13.9 g/dL Critically low 14.0-18.0 [facility] Comment on above: Performed By: #### C BC #### [facility] [address] [place] [address] Dr. Peewee Russell IG # 0.03 10e3/ul Normal 0.00-0.03 [facility] Comment on above: Performed By: #### C BC #### [facility] [address] [place] [address] Dr. Peewee Russell IG % 0.4 % Normal 0.0-0.5 [facility] Comment on above: Performed By: #### C BC #### [facility] [address] [place] [address] Dr. Peewee Russell LYMPH # 1.9 103/ul Normal 1.2-3.8 [facility] Comment on above: Performed By: #### C BC #### [facility] [address] [place] [address] Dr. Peewee Russell Lymphocytes/100 WBC (Bld) 23.0 % Normal 20.5-60.0 [facility] Comment on above: Performed By: #### C BC #### [facility] [address] [place] [address] Dr. Peewee Russell MANUAL DIFF REQ NO Normal [facility] Comment on above: Performed By: #### C BC #### [facility] [address] [place] [address] Dr. Peewee Russell MCH (RBC) [Entitic mass] 32.1 pg Normal 25.9-34.0 [facility] Comment on above: Performed By: #### C BC #### [facility] [address] [place] [address] Dr. Peewee Russell MCHC (RBC) [Mass/Vol] 33.0 g/dL Normal 29.9-35.2 [facility] Comment on above: Performed By: #### C BC #### [facility] [address] [place] [address] Dr. Peewee Russell MCV (RBC) [Entitic vol] 97.2 fL Critically high 80.0-94.0 [facility] Comment on above: Performed By: #### C BC #### [facility] [address] [place] [address] Dr. Peewee Russell MONO # 0.6 103/ul Normal 0.3-0.8 [facility] Comment on above: Performed By: #### C BC #### [facility] [address] [place] [address] Dr. Peewee Russell Monocytes/100 WBC (Bld) 7.2 % Normal 1.7-12.0 [facility] Comment on above: Performed By: #### C BC #### [facility] [address] [place] [address] Dr. Peewee Russell NEUT # 5.7 103/ul Normal 1.4-6.5 [facility] Comment on above: Performed By: #### C BC #### [facility] [address] [place] [address] Dr. Peewee Russell Neutrophils/100 WBC (Bld) 67.6 % Normal 43.0-75.0 [facility] Comment on above: Performed By: #### C BC #### [facility] [address] [place] [address] Dr. Peewee Russell Platelet mean volume (Bld) [Entitic vol] 8.9 fL Critically low 9.5-13.5 [facility] Comment on above: Performed By: #### C BC #### [facility] [address] [address] [address] Peewee Russell PLT 239 103/ul Normal 150-450 [facility] Comment on above: Performed By: #### C BC #### [facility] [address] [place] [address] Dr. Peewee Russell RBC 4.33 106/ul Critically low 4.70-6.10 [facility] Comment on above: Performed By: #### C BC #### [facility] [address] [place] [address] Dr. Peewee Russell WBC 8.4 103/ul Normal 4.0-11.0 [facility] Comment on above: Performed By: #### C BC #### [facility] [address] [place] [address] Dr. Peewee Russell GLYCOHEMOGLOBIN A1Con 2021 ADA RECOMMENDATION SEE BELOW Normal [facility] Comment on above: Result Comment: ADA RECOMMENDED LIMIT 4.0 - 6.0 ADA THERAPEUTIC TARGET < 7.0 ACTION SUGGESTED > 7.0 Performed By: #### A 1C #### [facility] [address] [place] [address] Dr. Peewee Russell Glucose [Mass/Vol] 108 mg/dL Normal [facility] Comment on above: Performed By: #### A 1C #### [facility] [address] [place] [address] Dr. Peewee Russell HbA1c (Bld) [Mass fraction] 5.4 % Normal 4.5-6.2 [facility] Comment on above: Performed By: #### A 1C #### [facility] [address] [place] [address] Dr. Peewee Russell LIPID PROFILEon 09-10-2021 CHOL-HDL RATIO NORM SEE BELOW Normal [facility] Comment on above: Result Comment: 3.3 - 4.4 LOW RISK 4.4 - 7.1 AVERAGE RISK 7.1 - 11.0 MODERATE RISK >11.0 HIGH RISK Performed By: #### T SH, LIPID, CMP #### [facility] [address] [address] [address] Peewee Russell Cholesterol [Mass/Vol] 169 mg/dL Normal <=200 [facility] Comment on above: Performed By: #### T SH, LIPID, CMP #### [facility] [address] [address] [address] Peewee Russell Cholesterol in HDL [Mass/Vol] 70 mg/dL Critically high 40-60 [facility] Comment on above: Performed By: #### T SH, LIPID, CMP #### [facility] [address] [place] [address] Dr. Peewee Russell Cholesterol in LDL [Mass/Vol] 90.4 mg/dL Normal [facility] Comment on above: Performed By: #### T SH, LIPID, CMP #### [facility] [address] [address] [address] Peewee Russell Cholesterol.total/Ch olesterol in HDL [Mass ratio] 2.4 {ratio} Normal [facility] Comment on above: Performed By: #### T SH, LIPID, CMP #### [facility] [address] [place] [address] Dr. Peewee Russell HDL NORMAL > or = 60 mg/dl - LO W CARDIOVASCULAR RISK <40 mg/dl - HIGH CARDIOVASCULAR RISK Normal [facility] Comment on above: Performed By: #### T SH, LIPID, CMP #### [facility] [address] [place] [address] Dr. Peewee Russell LDL CALC NORMAL SEE BELOW Normal [facility] Comment on above: Result Comment: <100 mg/dl OPTIMAL 100 - 129 mg/dl NEAR OR ABOVE OPTIMAL 130 - 159 mg/dl BORDERLINE HIGH 160 - 189 mg/dl HIGH >190 mg/dl VERY HIGH Performed By: #### T SH, LIPID, CMP #### [facility] [address] [address] [address] Peewee Russell Triglyceride [Mass/Vol] 43 mg/dL Normal <=150 [facility] Comment on above: Performed By: #### T SH, LIPID, CMP #### [facility] [address] [address] [address] Peewee Russell VLDL CALC 8.6 mg/dL Normal [facility] Comment on above: Performed By: #### T SH, LIPID, CMP #### [facility] [address] [address] [address] Peewee Russell PROF 14(COMP METB)on 022 Albumin [Mass/Vol] 3.7 g/dL Normal 3.4-5.0 [facility] Comment on above: Performed By: #### T SH, LIPID, CMP #### [facility] [address] [place] [address] Dr. Peewee Russell Albumin/Globulin [Mass ratio] 1.0 {ratio} Normal [facility] Comment on above: Performed By: #### T SH, LIPID, CMP #### [facility] [address] [place] [address] Dr. Peewee Russell ALP [Catalytic activity/Vol] 65 U/L Normal 46-116 [facility] Comment on above: Performed By: #### T SH, LIPID, CMP #### [facility] [address] [address] [address] Peewee Russell ALT [Catalytic activity/Vol] 29 U/L Normal 16-63 [facility] Comment on above: Performed By: #### T SH, LIPID, CMP #### [facility] [address] [address] [address] Peewee Russell Anion gap [Moles/Vol] 9.6 mmol/L Normal [facility] Comment on above: Performed By: #### T SH, LIPID, CMP #### [facility] [address] [place] [address] Dr. Peewee Russell AST [Catalytic activity/Vol] 21 U/L Normal 15-37 [facility] Comment on above: Performed By: #### T SH, LIPID, CMP #### [facility] [address] [address] [address] Peewee Russell Bilirubin [Mass/Vol] 0.5 mg/dL Normal 0.2-1.0 [facility] Comment on above: Performed By: #### T SH, LIPID, CMP #### [facility] [address] [place] [address] Dr. Peewee Russell Calcium [Mass/Vol] 9.0 mg/dL Normal 8.5-10.1 [facility] Comment on above: Performed By: #### T SH, LIPID, CMP #### [facility] [address] [place] [address] Dr. Peewee Russell Chloride [Moles/Vol] 104 mmol/L Normal 98-107 [facility] Comment on above: Performed By: #### T SH, LIPID, CMP #### [facility] [address] [place] [address] Dr. Peewee Russell CO2 [Moles/Vol] 31.0 mmol/L Normal 21.0-32.0 [facility] Comment on above: Performed By: #### T SH, LIPID, CMP #### [facility] [address] [place] [address] Dr. Peewee Russell Creatinine [Mass/Vol] 0.75 mg/dL Normal 0.70-1.30 [facility] Comment on above: Performed By: #### T SH, LIPID, CMP #### [facility] [address] [place] [address] Dr. Peewee Russell EGFR-AF ERITREAN >60 Normal >=60 [facility] Comment on above: Performed By: #### T SH, LIPID, CMP #### [facility] [address] [place] [address] Dr. Peewee Russell EGFR-NON AF ERITREAN >60 Normal >=60 [facility] Comment on above: Performed By: #### T SH, LIPID, CMP #### [facility] [address] [place] [address] Dr. Peewee Russell Globulin (S) [Mass/Vol] 3.6 g/dL Normal [facility] Comment on above: Performed By: #### T SH, LIPID, CMP #### [facility] [address] [address] [address] Peewee Russell Glucose [Mass/Vol] 110 mg/dL Critically high 74-106 [facility] Comment on above: Performed By: #### T SH, LIPID, CMP #### [facility] [address] [place] [address] Dr. Peewee Russell Potassium [Moles/Vol] 4.6 mmol/L Normal 3.5-5.1 [facility] Comment on above: Performed By: #### T GEORGES, LIPID, CMP #### [facility] [address] [place] [address] Dr. Peewee Russell Protein [Mass/Vol] 7.3 g/dL Normal 6.4-8.2 [facility] Comment on above: Performed By: #### T GEORGES, LIPID, CMP #### [facility] [address] [place] [address] Dr. Peewee Russell Sodium [Moles/Vol] 140 mmol/L Normal 136-145 [facility] Comment on above: Performed By: #### T GEORGES, LIPID, CMP #### [facility] [address] [place] [address] Dr. Peewee Russell Urea nitrogen [Mass/Vol] 13.0 mg/dL Normal 7.0-18.0 [facility] Comment on above: Performed By: #### T GEORGES, LIPID, CMP #### [facility] [address] [place] [address] Dr. Peewee Russell Urea nitrogen/Creatinine [Mass ratio] 17.3 mg/mg Normal [facility] Comment on above: Performed By: #### T GEORGES, LIPID, CMP #### [facility] [address] [place] [address] Dr. Peewee Russell TSHon 09-10-2021 TSH 1.463 uIU/mL Normal 0.358-3.740 [facility] Comment on above: Performed By: #### T GEORGES, LIPID, CMP #### [facility] [address] [address] [address] Peewee Russell VITAMIN B12on 09-10-2021 Cobalamin (Vitamin B12) [Mass/Vol] 620.0 pg/mL Normal 193.0-986.0 [facility] Comment on above: Performed By: #### V ITB12 #### [facility] [address] [place] [address] Dr. Peewee Lynne 08-22-2021 L - -------- Specimen: [id number] Received: 08/22/21 Status: LYNETTE Mckinnon Num: [id number] Spec Type: Surgical Subm Dr: Keith Puente Jr, DO Tissues: A Duodenum - Biopsy (DUODENUM BX) Procedures: HE Stain/2, Gross/Micro L4 -------- Patient Age/Sex Location Account Attending Physician -------- Jb Vail/M [id number] Keith Puente Jr, -------- SPEC NUM: [id number] RECD: 08/22/21 STATUS: LYNETTE LISA NUM: [id number] VIET: 08/22/21 [facility] DR: Keith Puente Jr, DO ENTERED: 08/22/21 [facility] DR: SPEC TYPE: Surgical DEPT: S ORDERED: HE Stain/2, Gross/Micro L4 ORDERED: HE Stain/2, Gross/Micro L4 Pathological Diagnosis Duodenum, biopsy: - Duodenal mucosa with no significant pathologic findings. - No villous atrophy or intraepithelial lymphocytosis identified. Clinical Information Weight loss Gross Description Received in formalin labeled with the patient's name, number and duodenal biopsy are 2 hammonds tissue fragments, 0.3 cm and 0.4 cm. Entirely submitted in one cassette labeled A1. Type of Fixative: 10% Neutral Buffered Formalin (KING/YIzabel) Microscopic Description Two glass slides with H E stained material have been examined. The microscopic findings support the above pathologic diagnosis. CPT Codes 22586 -------- -------- Specimen: [id number] Received: 08/22/21 Status: LYNETTE Mckinnon Num: [id number] Spec Type: Surgical Subm Dr: Keith Puente Jr, DO Tissues: A Duodenum - Biopsy (DUODENUM BX) Procedures: HE Stain/2, Gross/Micro L4 -------- Patient: Jb Vail [id number] (Continued) -------- Signed (signature on file) Vish Alexander MD 08/23/21 1649 Normal [facility] COVID-19 [facility] SARS-CoV-2 (COVID-19) RNA CLARISSE+probe Ql (Unsp spec) Negative Normal Negative [facility] Comment on above: Order Comment: Healt hcare Worker?: N Result Comment: Testing for SARS-CoV-2 by RT-PCR This test was developed and its performance characteristics determined by [employer], [employer]) and validated at the [facility]. This test has not been FDA cleared or approved. This test has been authorized by FDA under an Emergency Use Authorization (EUA). This test has been validated in accordance with the FDA's Guidance Document (Policy for Diagnostics Testing in Laboratories Certified to Perform High Complexity Testing under CLIA prior to Emergency Use Authorization for Coronavirus Disease-2019 during the Public Health Emergency) issued on June 24, 2019. This test is only authorized for the duration of time the declaration that circumstances exist justifying the authorization of the emergency use of in vitro diagnostic tests for detection of SARS-CoV-2 virus and/or diagnosis of COVID-19 infection under section 564(b)(1) of the Act, 21 U.S.C. 360bbb-3(b)(1), unless the authorization is terminated or revoked sooner. PERFORMED BY: [place] [address] PATHOLOGIST TRAINING PERSONNEL SUPERVISOR MITA PINO M.D. Performed By: #### C OVID 19 [facility] #### [address] abdomen pelvis w conon CT abdomen pelvis w con [facility] [place] [address] [place] [address] CT Scan Report Signed Patient: Jb Vail MR#: [id number] : 1945 Acct:[id number] Age/Sex: 75 / M ADM Date: 05/15/21 Loc: [facility] Room: Type: [facility] Attending Dr: Keith Puente DO Ordering Provider: Keith Puente Jr, DO Date of Service: 05/15/21 CT/CT abdomen pelvis w con: Constipation;Abdomina l pain Copies to: Keith Puente Jr, DO CT abdomen and pelvis 05/15/2021. CLINICAL DATA: Abdominal pain and constipation. TECHNIQUE: CT of the abdomen and pelvis was performed with intravenous and oral contrast. Axial, sagittal, and coronal reconstructions were created and reviewed. This CT exam was performed using one or more of the following dose reduction techniques: Automated exposure control, adjustment of the mA and/or kV according to patient size, or use of iterative reconstruction technique. COMPARISON: 06/23/2018. FINDINGS: Images of the lower chest demonstrate mild atelectasis in the lung bases. There is a posterior diaphragmatic defect on the right. The liver, spleen, pancreas, left kidney, and both a drenal glands appear unremarkable. There is a tiny cyst in the right kidney. The urinary bladder appears unremarkable. No acute intestinal abnormality is identified. The appendix appears unremarkable. No free intra-abdominal air or ascites is seen. Extensive atherosclerotic disease is noted. The infrarenal abdominal aorta is mildly ectatic. There are degenerative changes in the lower lumbar spine. No abdominal wall abnormality is visualized. CT/CT abdomen pelvis w con IMPRESSION: 1. Mild chronic findings as described. 2. No acute abdominal or pelvic abnormality. Impression dictated by: Wilmer Thompson Jr., M.D.05/15/2021 7:39 PM Dictation Location: [address] [address] Transcribed By: [facility] 05/15/211938 Dictated By: Wilmer Thompson Jr, MD 05/15/21 1626 Signed By: 05/15/211938 Normal [facility] ISTAT XRay CREon 05-15-2021 Creatinine [Mass/Vol] 0.7 mg/dL Normal 0.6-1.3 [facility] Comment on above: Result Comment: ER/E SD physician is notified/shown all ISTAT results. Critical values may be confirmed by laboratory testing if deemed necessary by ER attending doctor. Performed By: #### I SCRE #### [address] Point of Care testing , ISTAT GFR ( > 60 Normal [facility] Comment on above: Result Comment: GFR estimated reference range: According to KDOQI guidelines, <60 ml/min/1.73m2 is sufficient to diagnose a patient with chronic kidney disease. PERFORMED BY: [place] [address] PATHOLOGIST TRAINING PERSONNEL SUPERVISOR MITA PINO M.D. Performed By: #### I SCRE #### [address] Point of Care testing , ISTAT GFR (Non- Am > 60 Normal [facility] Comment on above: Performed By: #### I SCRE #### [address] Point of Care testing , CNOVon 09-29-2020 CNOV Office Visit (PULMAV ) JB VAIL ([id number]) 1945 M Date Time Provider Department 09/29/20 9:15 AM ADDIS MICHAUD During your visit today, we recorded the following information about you: Pulse Blood pressure Weight 57/minute 138/71 69.4 kg Addis Michaud MD 09/29/2020 4:07 PM Addendum NEW PATIENT OFFICE VISIT Jb Vail's PCP is Kun Olvera DO. My final recommendations will be communicated back to the requesting physician by way of shared Medical record or letter to requesting physician via US mail. CC: New Patient HPI: Mr. Vail is a 75 year old male who presents for evaluation of New Patient. He is here with his today In the past year he has had more dyspnea when mowing lawn, snow blowing. Has to take a break. Has a basement with flight of stairs, but seems to do fine with that. He helped his son move a couple of years ago. It was hot that day and up and down which caused more dyspnea as well. It sounds like cold air in the wintertime and then heat humidity affects him as well. He has been told he has COPD in the past, he was seeing a [place] software design engineer. He had PFTs, about 2 years. He was started on spiriva respimat. Has Spiriva, he was using as needed. He sometimes uses albuterol. Unclear if this helps or not Trouble swallowing food now. No pain. He has to cough up and clear his throat a lot. Sounds like this is mostly with solid foods and not liquids. He had an EGD locally, he had a dilation but did not seem to work. This was a couple of years ago. He just recently saw his GI doctor earlier this week for some bowel issues. He did not mention the swallow concerns at the time. No pneumonia or bronchitis episodes No known seasonal allergies that he is aware of No cardiac disease that he is aware of. Once in a while he gets some chest jolt. He was unable to do stress test, about 3-4 years ago. Had to stop due to dyspnea. He thinks they ended up doing a pharmacological stress test as that initial test was treadmill. He is not sure. It does not sound like he has had an echocardiogram that they can recall. Former smoker: started in college around age 20, quit now >20 years now. He smoked about 3 packs per day the last few years before he quit. 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 HEENT: Negative for frequent or significant headaches NECK: Negative for pain or significant neck swelling RESPIRATORY: see HPI CARDIOVASCULAR: Negative for chest pain, leg swelling or palpitations GI: No nausea, vomiting, or diarrhea : No history of dysuria or frequency MUSCULOSKELETAL: negative SKIN: Negative for lesions, rash, and itching . PSYCH: Negative for sleep disturbance, mood disorder HEMATOLOGY/LYMPHOLOGY : Negative for prolonged bleeding ENDOCRINE: Negative for cold or heat intolerance NEURO: No history of headaches, syncope The remainder of the review of systems is negative. PMH, FAMH, SOCIAL History AND Allergies were verified and updated, and medications were reconciled with the patient at this visit. PAST MEDICAL HISTORY Diagnosis Date - Cervical spondylosis with myelopathy : PAST SURGICAL HISTORY Procedure Laterality Date - LAMINECTOMY,LUMBAR 2000 - SPINE FUSION,ANTER,3 SGMTS 2000 cervical : FAMILY HISTORY Problem Relation Age of Onset - other (multiple sclerosis [Other]) Brother - Cancer Father - Cancer Son brain tumor, 2000 - other (kidney [Other]) Sister , renal failure age 50 - Stroke Paternal Grandfather - Thyroid Maternal Grandmother - Psychiatry Mother : Social History Tobacco Use - Smoking status: Former Smoker Packs/day: 1.00 Years: 10.00 Pack years: 10.00 Types: Cigarettes Quit date: 2007 Years since quittin.5 - Smokeless tobacco: Never Used - Tobacco comment: previously quit 10 years, smoked 30 years before that Vaping Use - Vaping Use: Never used Substance Use Topics - Alcohol use: Yes Comment: once every 3 months - Drug use: No Allergies: ALLERGIES Allergen Reactions - Penicillins Rash - Sulfa (Sulfonamide * Rash Current Medications: Current Outpatient Medications Medication Sig Dispense Refill - SPIRIVA RESPIMAT 2.5 mcg/actuation inhaler - albuterol sulfate 90 mcg/actuation aebs Inhale as instructed. - dicyclomine (BENTYL) 20 mg tablet TAKE ONE TABLET BY MOUTH EVERY 6 HOURS NEEDED FOR ABDOMINAL PAIN - finasteride (PROSCAR) 5 mg tablet Take 5 mg by mouth once daily. - simvastatin (ZOCOR) 40 mg tablet Take 40 mg by mouth daily at bedtime. - venlafaxine (EFFEXOR) 75 mg tablet Take 75 mg by mouth on (more content not included)... Normal [facility] XR CHEST 2V FRONTAL/LATon XR CHEST 2V FRONTAL/LAT * * *Final Report* * * DATE OF EXAM: Sep 29 2020 8:29AM VHX [id number] - XR CHEST 2V FRONTAL/LAT / PROCEDURE REASON: Chronic obstructive pulmonary disease, unspecified COPD type (HCC) * * * * Physician Interpretation * * * * EXAMINATION: CHEST RADIOGRAPH (2 VIEW FRONTAL and LATERAL) CLINICAL HISTORY: Chronic obstructive pulmonary disease, unspecified COPD type (HCC) MQ: [id number] EXAM DATE/TIME: 09/29/2020 8:29 AM COMPARISON: Chest x-ray report dated 07/31/2000 RESULT: Lines, tubes, and devices: None. Lungs and pleura: No consolidation. No lung mass. No pleural effusion. No pneumothorax. Cardiomediastinal silhouette: Normal cardiomediastinal silhouette. Bones and soft tissues: Degenerative changes are present within the thoracic spine. There are remote left mid posterior seventh and eighth rib fractures. IMPRESSION: NO ACUTE RADIOGRAPHIC ABNORMALITY. Horse Show Manager: ELISABET Transcribe Date/Time: Sep 29 2020 9:03A Dictated by : ALY MAHONEY MD This examination was interpreted and the report reviewed and electronically signed by: ALY MAHONEY MD on Sep 29 2020 9:05AM EST [id number] Normal [facility] Vital Signs Date Time Vital Sign Value Performing Clinician Facility 04-08-2023 08:10-0500 Body height 177.8 cm Keith Atkinson Other [facility] Other 04-08-2023 08:10-0500 Body mass index (BMI) [Ratio] 23.53 kg/m2 Keith Atkinson Other [facility] Other 04-08-2023 08:10-0500 Body temperature 97.9 [degF] Keith Atkinson Other [facility] Other 04-08-2023 08:10-0500 Body weight 74.39 kg Keith Atkinson Other [facility] Other 04-08-2023 08:10-0500 Diastolic blood pressure 78 mm[Hg] Keith Atkinson Other [facility] Other 04-08-2023 08:10-0500 Respiratory rate 18 /min Keith Atkinson Other [facility] Other 04-08-2023 08:10-0500 SaO2% (BldA) [Mass fraction] 98 % Keith Atkinson Other [facility] Other 04-08-2023 08:10-0500 Systolic blood pressure 128 mm[Hg] Keith Atkinson Other [facility] Other 01-27-2023 11:09-0500 Blood Pressure Location Moise JOY [facility] 01-27-2023 11:09-0500 Diastolic blood pressure 71 mm[Hg] Moise JOY [facility] 01-27-2023 11:09-0500 Heart rate 70 /min Moise JOY [facility] 01-27-2023 11:09-0500 Respiratory rate 16 /min Moise JOY [facility] 01-27-2023 11:09-0500 Systolic blood pressure 133 mm[Hg] Moise JOY [facility] 10-01-2022 08:10-0400 Body height 177.8 cm Keith Atkinson Other [facility] Other 10-01-2022 08:10-0400 Body mass index (BMI) [Ratio] 21.88 kg/m2 Keith Atkinson Other [facility] Other 10-01-2022 08:10-0400 Body temperature 98.5 [degF] Keith Atkinson Other [facility] Other 10-01-2022 08:10-0400 Body weight 69.17 kg Keith Atkinson Other [facility] Other 10-01-2022 08:10-0400 Diastolic blood pressure 80 mm[Hg] Keith Atkinson Other [facility] Other 10-01-2022 08:10-0400 Respiratory rate 18 /min Keith Atkinson Other [facility] Other 10-01-2022 08:10-0400 SaO2% (BldA) [Mass fraction] 99 % Keith Atkinson Other [facility] Other 10-01-2022 08:10-0400 Systolic blood pressure 124 mm[Hg] Keith Atkinson Other [facility] Other 05-20-2022 09:10-0500 Body height 177.8 cm Keith Atkinson Other [facility] Other 05-20-2022 09:10-0500 Body mass index (BMI) [Ratio] 22.74 kg/m2 Keith Atkinson Other [facility] Other 05-20-2022 09:10-0500 Body temperature 97.5 [degF] Keith Atkinson Other [facility] Other 05-20-2022 09:10-0500 Body weight 71.9 kg Keith Atkinson Other [facility] Other 05-20-2022 09:10-0500 Diastolic blood pressure 84 mm[Hg] Keith Atkinson Other [facility] Other 05-20-2022 09:10-0500 Respiratory rate 18 /min Keith Atkinson Other [facility] Other 05-20-2022 09:10-0500 SaO2% (BldA) [Mass fraction] 98 % Keith Atkinson Other [facility] Other 05-20-2022 09:10-0500 Systolic blood pressure 122 mm[Hg] Keith Atkinson Other [facility] Other 03-28-2022 09:10-0500 Body height 177.8 cm Keith Atkinson Other [facility] Other 03-28-2022 09:10-0500 Body mass index (BMI) [Ratio] 22.67 kg/m2 Keith Atkinson Other [facility] Other 03-28-2022 09:10-0500 Body temperature 98.5 [degF] Keith Atkinson Other [facility] Other 03-28-2022 09:10-0500 Body weight 71.67 kg Keith Atkinson Other [facility] Other 03-28-2022 09:10-0500 Diastolic blood pressure 80 mm[Hg] Keith Atkinson Other [facility] Other 03-28-2022 09:10-0500 Respiratory rate 18 /min Keith Atkinson Other [facility] Other 03-28-2022 09:10-0500 SaO2% (BldA) [Mass fraction] 99 % Keith Atkinson Other [facility] Other 03-28-2022 09:10-0500 Systolic blood pressure 118 mm[Hg] Keith Atkinson Other [facility] Other 10-08-2021 15:01-0400 Blood Pressure Location Moise JOY [facility] 10-08-2021 15:01-0400 Diastolic blood pressure 85 mm[Hg] Moise JOY [facility] 10-08-2021 15:01-0400 Heart rate 72 /min Moise JOY [facility] 10-08-2021 15:01-0400 Systolic blood pressure 146 mm[Hg] Moise JOY [facility] 09-13-2021 09:10-0400 Body height 177.8 cm Keith Atkinson Other [facility] Other 09-13-2021 09:10-0400 Body mass index (BMI) [Ratio] 21.88 kg/m2 Keith Atkinson Other [facility] Other 09-13-2021 09:10-0400 Body temperature 97.2 [degF] Keith Atkinson Other [facility] Other 09-13-2021 09:10-0400 Body weight 69.17 kg Keith Margaritaderek Other [facility] Other 09-13-2021 09:10-0400 Diastolic blood pressure 26 mm[Hg] Keith Margaritaderek Other [facility] Other 09-13-2021 09:10-0400 Respiratory rate 18 /min Keith Prieto Other [facility] Other 09-13-2021 09:10-0400 SaO2% (BldA) [Mass fraction] 98 % Keith Margaritaderek Other [facility] Other 09-13-2021 09:10-0400 Systolic blood pressure 126 mm[Hg] Keith Atkinson Other [facility] Other 05-09-2021 17:00-0500 Body height 177.8 cm Keith Onelba Other [facility] Other 05-09-2021 17:00-0500 Body mass index (BMI) [Ratio] 22.24 kg/m2 Keith Onelba Other [facility] Other 05-09-2021 17:00-0500 Body weight 70.31 kg Keith Onelba Other [facility] Other 03-13-2021 09:10-0500 Body height 177.8 cm Keith Atkinson Other [facility] Other 03-13-2021 09:10-0500 Body mass index (BMI) [Ratio] 22.67 kg/m2 Keith Atkinson Other [facility] Other 03-13-2021 09:10-0500 Body temperature 97.4 [degF] Keith Atkinson Other [facility] Other 03-13-2021 09:10-0500 Body weight 71.67 kg Keith Atkinson Other [facility] Other 03-13-2021 09:10-0500 Diastolic blood pressure 80 mm[Hg] Keith Atkinson Other [facility] Other 03-13-2021 09:10-0500 Respiratory rate 18 /min Keith Atkinson Other [facility] Other 03-13-2021 09:10-0500 SaO2% (BldA) [Mass fraction] 99 % Keith Atkinson Other [facility] Other 03-13-2021 09:10-0500 Systolic blood pressure 124 mm[Hg] Keith Atkinson Other [facility] Other Encounters Encounter Date Encounter Type Care Provider Facility Start: 05-12-2023 End: 05-13-2023 ambulatory Moise JOY Facility:[facility] Start: 05-12-2023 End: 05-12-2023 Patient encounter procedure Moise JOY [facility] Start: 04-14-2023 End: 04-14-2023 ambulatory Keith Atkinson Other [facility] Other Start: 04-14-2023 Telephone encounter Keith Atkinson [facility] Start: 04-08-2023 End: 04-08-2023 ambulatory Keith Atkinson Other [facility] Other Start: 04-08-2023 Office outpatient visit 25 minutes Keith Atkinson [facility] Start: 03-10-2023 End: 03-10-2023 ambulatory Keith Atkinson Other [facility] Other Start: 03-10-2023 Telephone encounter Keith Atkinson [facility] Start: 01-27-2023 End: 01-28-2023 ambulatory Moise JOY Facility:[facility] Start: 01-27-2023 End: 01-27-2023 Patient encounter procedure Moise JOY [facility] Start: 01-14-2023 End: 01-15-2023 ambulatory Moise JOY Facility:[facility] Start: 11-28-2022 End: 11-28-2022 ambulatory Keith Atkinson Other [facility] Other Start: 11-28-2022 Telephone encounter Keith Atkinson [facility] Start: 10-11-2022 End: 10-12-2022 ambulatory Moise JOY Facility: [facility] Start: 10-01-2022 End: 10-01-2022 ambulatory Keith Atkinson Other [facility] Other Start: 10-01-2022 Office outpatient visit 25 minutes Keith Atkinson [facility] Start: 09-27-2022 End: 09-27-2022 ambulatory Keith Atkinson Other [facility] Other Start: 09-27-2022 Telephone encounter Keith Atkinson [facility] Start: 06-14-2022 End: 06-14-2022 ambulatory Keith Atkinson Other [facility] Other Start: 06-14-2022 Telephone encounter Keith Atkinson [facility] Start: 05-29-2022 End: 05-29-2022 ambulatory Keith Atkinson Other [facility] Other Start: 05-29-2022 Telephone encounter Keith Atkinson [facility] Start: 05-20-2022 End: 05-20-2022 ambulatory Keith Atkinson Other [facility] Other Start: 05-20-2022 Office outpatient visit 15 minutes Keith Atkinson [facility] [place] Start: 04-05-2022 End: 04-05-2022 ambulatory Keith Atkinson Other [employer] Other Start: 04-05-2022 Telephone encounter Keith Atkinson [facility] Angélica Start: 03-28-2022 End: 03-28-2022 ambulatory Keith Atkinson Other [employer] Other Start: 03-28-2022 Office outpatient visit 25 minutes Keith Atkinson [facility] [place] Start: 03-25-2022 End: 03-26-[address] KEITH ATKINSON Facility:[facility] Start: 10-08-2021 End: 10-08-2021 Patient encounter procedure Moise JOY [facility] Start: 10-04-2021 End: 10-05-[address] MOISE JOY Facility:[facility] Start: 09-13-2021 End: 09-13-2021 ambulatory Keith Atkinson Other [facility] Other Start: 09-13-2021 Office outpatient visit 25 minutes Keith Atkinson [facility] [place] Start: 09-10-2021 End: 09-11-[address] KEITH ATKINSON Facility:[facility] Start: 07-20-2021 End: 07-20-2021 ambulatory Keith Puente Other [facility] Other Start: 07-20-2021 Telephone encounter Keith Puente [facility] Gastroenterology Start: 06-04-2021 End: 06-04-2021 ambulatory Keith Atkinson Other [employer] Other Start: 06-04-2021 Telephone encounter Keith Atkinson [facility] Start: 05-09-2021 End: 05-09-2021 ambulatory Keith Puente Other [employer] Other Start: 05-09-2021 Office outpatient visit 25 minutes Keith Puente [facility] Gastroenterology Start: 04-04-2021 End: 04-04-2021 ambulatory Keith Atkinson Other [facility] Other Start: 04-04-2021 Telephone encounter Keith Atkinson [facility] Start: 03-28-2021 End: 03-28-2021 ambulatory Keith Atkinson Other [facility] Other Start: 03-28-2021 Telephone encounter Keith Atkinson [facility] Start: 03-27-2021 End: 03-27-2021 ambulatory Keith Atkinson Other [facility] Other Start: 03-27-2021 Telephone encounter Keith Atkinson [facility] Start: 03-13-2021 End: 03-13-2021 ambulatory Keith Atkinson Other [facility] Other Start: 03-13-2021 Office outpatient visit 25 minutes Keith Atkinson [facility] Procedures Date Procedure Procedure Detail Performing Clinician Start: 01-14-2023 Transrectal biopsy o f prostate using ultrasound guidance Moise OJY Start: 10-04-[address] KEITH ATKINSON Comment on above: Performed By: #### P SAD #### [facility] [address] [place] [address] Dr. Peewee Russell Start: 07-24-2017 right elbow removal of hardware Moise JOY Start: 01-15-2017 Open reduction of fr acture of elbow with internal fixation Moise JOY Comment on above: Right elbow Start: 12-26-2011 Transurethral prostatectomy Moise JOY Start: 11-11-2011 Urodynamic studies Kaitlynn JOY Start: 08-07-2010 Ultrasonography guid ed transrectal cryoablation of prostate Moise JOY Start: 03-30-2010 Cystoscopy Moise DAVIES GENEVIEVECristian Arthroscopy Moise JOY Comment on above: Right shoulder lower back surgery Moise JAIMES neck surgery 3 Moise Foster Comment on above: zephyr plate -titani um Right hand third fin cesilia surgery Moise JOY Plan of Treatment Date Care Activity Detail Author Start: 01-30-2024 ambulatory Ambulatory Facility:[facility] Immunizations Immunization Date Immunization Notes Care Provider Fa [facility] 01-20-2023 COVID-19 Vaccine Pfizer - Documentation Purposes Only Keith Atkinson Other [facility] Other 01-20-2023 Flu Shot - Documentation Purposes Only Keith Atkinson Other [facility] Other 01-20-2023 influenza virus vaccine, unspecified formulation Moise JOY [facility] 12-06-2021 influenza virus vaccine, unspecified formulation Moise JOY [facility] 12-06-2021 SARS-CoV-2 (COVID-19 ) [id number] Moise JOY [facility] 12-06-2021 influenza, seasonal, injectable Keith Atkinson Other [facility] Other 06-29-2021 SARS-CoV-2 (COVID-19 ) [id number] vaccine Moise [employer] [facility] Comment on above: Result Comment: 2022: [id number] 01-23-2021 influenza, seasonal, injectable Keith Atkinson Other [facility] Other 12-27-2020 influenza virus vaccine, unspecified formulation [employer] [facility] 12-27-2020 pneumococcal polysaccharide vaccine, 23 valent Moise [employer] [facility] 12-16-2020 COVID-19 Vaccine Moderna - Documentation Purposes Only Keith Atkinson Other [facility] Comment on above: Result Comment: 2022: [id number] 06-14-2020 zoster vaccine recombinant Keith Atkinson Other [facility] 05-30-2020 COVID-19 Vaccine Moderna - Documentation Purposes Only Keith Atkinson Other [facility] 05-01-2020 COVID-19 Vaccine Moderna - Documentation Purposes Only Keith Atkinson Other [facility] 03-21-2020 zoster vaccine recombinant Keith Atkinson Other [facility] 12-23-2019 influenza virus vaccine, unspecified formulation Moise [employer] [facility] 12-23-2019 pneumococcal conjuga te vaccine, 13 valent Moise [employer] [facility] 12-23-2019 influenza, seasonal, injectable Keith Atkinson Other [facility] Other 12-23-2019 pneumococcal polysaccharide vaccine, 23 valent Keith Atkinson Other [facility] Other 12-28-2018 influenza virus vaccine, unspecified formulation Moisesoren JOY [facility] 12-22-2018 influenza virus vaccine, unspecified formulation Moise JOY [facility] 12-22-2017 influenza virus vaccine, unspecified formulation Moise JOY [facility] 12-22-2017 influenza, seasonal, injectable Keith Atkinson Other [facility] Other 10-05-2017 tetanus toxoid, adsorbed Keith Atkinson Other [facility] Other 01-20-2017 influenza virus vaccine, unspecified formulation Moise JOY [facility] 01-20-2017 pneumococcal polysaccharide vaccine, 23 valent Keith Atkinson Other [facility] 12-23-2016 influenza virus vaccine, unspecified formulation Moisesoren JOY [facility] 12-23-2016 influenza, seasonal, injectable Keith Atkinson Other [facility] Other 01-10-2016 influenza virus vaccine, unspecified formulation Moise JOY [facility] 12-28-2014 influenza virus vaccine, unspecified formulation Moise JOY [facility] 01-10-2009 influenza, whole Moise INES ERS [facility] NEGATED: Highlighted row has not occurred!10-08-2021 SARS-CoV-2 mRNA (tomauricen 5y-11y) vaccine Moise JOY [facility] Payers Date Payer Category Payer Medicare [id number] [id number] 1957 Medicare [id number] 2. [id number] 1957 Medicare [id number] 1945 Unknown [id number] 2.16.84 [id number] 1945 Unknown [id number] 2.16.84 [id number] 1945 Unknown [id number] 2.16.84 [id number] 1945 Unknown [id number] 2.16.8 [id number] 1945 Unknown [id number] 2.16.8 [id number] 1945 Unknown [id number] 2.16.8 [id number] 1945 Unknown [id number] 2.16.8 [id number] 1945 Unknown [id number] 2.16.8 [id number] Social History Date Type Detail Facility Unknown if ever smoked [facility] Other Sex Assigned At [employer] Other Start: 03-31-2020 Tobacco smoking status Never s moked tobacco (finding) [facility] Start: 01-27-2023 Tobacco smoking status Ex-smoker (fi nding) [facility] Tobacco smoking status Never [facility] Functional Status Date Assessment Result Facility 01-27-2023 Functional Status N/A [facility] 10-08-2021 Functional Status N/A [facility] Clinical Notes 09-29-2020 to 04-08-2023 Note Date & Type Note Facility 04-08-2023 Evaluation note Encounter Date Diagnosis Assessment Notes Mar, Hyperlipidemia (ICD-10 - E78.5) Discussed cholesterol results with patient today. Total is 182. HDL is 64. LDL is 103. Triglycerides are 79. VLDL is 15.8. I would like him to continue with the same dose of Simvastatin. Continue to monitor his intake of carbs and sugars. Mar, COPD (chronic obstructive pulmonary disease) (ICD-10 - J44.9) He voices that his breathing is all right but he is not using the Spiriva daily. I did recommend that he use the medication daily as directed. He admits that when he is mowing grass he has trouble and has to stop while he mows. His breathing has not worsened since the summer. He has not had any trouble breathing in the colder months. I did explain to him that if he used the inhaler daily he should notice a change for the better with his breathing. I encouraged him to use it daily from now until to see if he notices any change with his breathing. He voices that he will do this because it is right next to his coffee which he drinks every day. The Albuterol is only an as needed inhaler, he can use this 15 min prior to shoveling or mowing or if needed. He was asked to keep me posted with how he is doing by three months. If he begins mowing grass again and he feels like his chest is tight or he has chest pain he is to let me know so we can discuss a cardiac work up. Right now he declines any cardiac work up. Mar, Hyperglycemia (ICD-10 - R73.9) Discussed blood sugar results with patient today. Glucose is 103. HgA1C is 5.7. I would like him to continue to monitor his intake of carbs and sugars. Stay active as tolerated. Mar, Anemia (ICD-10 - D64.9) He has returned to taking B12. His B12 is 798.0. His Folate is 13.50. I would like him to continue to take the B12 as directed. His hemoglobin last year (2022) was 14.3 and in the summer (10/13) it was down to 12.9 and once he returned to taking the B12 it has now gone up to 14.5 which is good. 16 Mar, 2023 Weight gain (ICD-10 - R63.5) He has put some weight on since he was last seen. Mar, Memory difficulty (ICD-10 - R41.3) Mar, Abnormal thyroid blood test (ICD-10 - R94.6) His TSH is 2.430. Mar, Anxiety and depression (ICD-10 - F41.8) He does continue with above medication daily as directed. Mar, BPH (benign prostatic hyperplasia) (ICD-10 - N40.0) Continue with above medication daily as directed. Mar, Acid reflux (ICD-10 - K21.9) Continue with above medication daily as directed. Mar, Other senior living (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 therapy (ICD-10 - Z79.899) [facility] [employer] Other 12-18-2023 Evaluation note* Encounter Date Diagnosis Assessment Notes Treatment Notes Treatment Clinical Notes Feb, COPD (chronic obstructive pulmonary disease) (ICD-10 - J44.9) [facility] [employer] Other 10-24-2023 Note [id number] 12-19-2022 Hospital Discharge instructions Follow Up Care 12/19/2022 14:25:52 With:BENITA SELF, Moise Bills, URL Address: [facility] [address], [place] [address]- When:Within 1 Year(s) Comments:w[facility]PS[facility] Evaluation note* Encounter Date Diagnosis Assessment Notes Treatment Notes Treatment Clinical Notes Nov, Anxiety and depression (ICD-10 - F41.8) [employer] Other 07-11-2023 Evaluation note* Encounter Date Diagnosis Assessment Notes Treatment Notes Treatment Clinical Notes Sep, Hyperlipidemia (ICD-10 - E78.5) Discussed cholesterol results with patient today. Total is 154. HDL is 57. LDL is 82. Triglycerides are 75. VLDL is 15. Readings are at goal. He is to continue with above medication daily as directed. Sep, COPD (chronic obstructive pulmonary disease) (ICD-10 - J44.9) He has tried using the inhaler prior to mowing and it is not helping him while he mows, he continues to get short of breath and has to take breaks during mowing. I did recommend that he see a software design engineer, and he refuses. He states that he does not feel that he is that bad . 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 His voices that he does not use the Spiriva as directed. We discussed that there are newer medications that can be used to treat his COPD, but they should be given by a software design engineer. He only uses the Spiriva as needed. I did explain to him that the Spiriva will only benefit him if he uses this daily. He should use the ProAir as his rescue inhaler and 15 min prior to mowing the lawn. He voices that he will begin using the Spiriva daily and see how he does. It may take up to one month for him to see the effects of the medication. Sep, Anemia (ICD-10 - D64.9) We discussed that his hemoglobin is lower at 12.9 which will not help his ability to breath. His B12 is 472. Folate is 8.4. He admits that he is not taking his B12 at all. I did recommend that he take this every day. Sep, Shortness of breath (ICD-10 - R06.02) He voices that his shortness of breath has been coming but is getting worse. He does have to stop when he is doing things and take a break and then can finish what he is doing. Sep, Chest pain (ICD-10 - R07.9) He voices that he is doing bad now. He comes in after mowing grass and is breathing heavy. He has chest pain at bedtime. It occurs mostly after he has been sleeping on one side, if he rolls over to the other side it resolves. He has a self propelled mower but walks behind it. He does not get chest squeezing but has to sit down for awhile in the shade while mowing before he can get back up and finish mowing. If he uses the inhaler before he mows it does not improve the ability for him to mow. I did recommend that he see a curtain framer for evaluation to discuss what has been going on and determine what testing needs to be done. He refuses. He does not want the hassle of going to the curtain framer. He states that when he hits the ground then he will consider seeing the specialist. He does not feel that he sweats more than he should. He did have a stress test done in 2019 which was reviewed today. He voices that if he knew there was an issue with his heart he would not allow any procedures to be done such as a stent. I did discuss him having a coronary calcium score done but he refuses, states he would like to wait to have this done. Sep, Hyperglycemia (ICD-10 - R73.9) Discussed blood sugar results with patient today. Glucose is 111. HgA1C is 5.2 which is normal. Sep, Weight loss (ICD-10 - R63.4) He has lost six pounds since last seen. He voices that he tries to stay as active as he can. He is not eating much anymore, states that food does not sound good any longer. He will eat some lunch meat during the day. If his weight gets down in the 140's we would need to consider further work up. His weight has been in the 152-158 range on our scale for at least the last year. Sep, BPH (benign prostatic hyperplasia) (ICD-10 - N40.0) He should continue to follow with Dr. Joy as directed. He voices that he will see Dr. Joy this month for the last time. I asked him to have Dr. Joy put in writing what he recommends moving forward and send us the office note. Sep, Constipation (ICD-10 - K59.00) Continue with above medication as directed. Sep, Acid reflux (ICD-10 - K21.9) Continue with above medication daily as directed. Sep, Anxiety and depression (ICD-10 - F41.8) Continue with above medication daily as directed. 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 I would like to treat with the troches but he prefers liquid. Guidance is given on how to use the medication. I want him to call me in one week with how he is doing, at that time we will need to see if treatment should be extended. He has a sulfa allergy, so I did ask him to speak with his trusted pharmacist as to if he can use the Nystatin. If not we will call in the troches. He is to keep me posted with progress. Apr, COPD (chronic obstructive pulmonary disease) (ICD-10 - J44.9) We discussed that the inhalers can cause stomatitis or ulcers in the mouth. He does not rinse his mouth after he uses the medication. He voices that he did return to using the inhalers a few months ago. He does get some shortness of breath in the mornings but it could happen during the day as well. I did recommend that he rinse his mouth out after he uses his inhalers. He has a sulfa allergy, but voices that he used Spiriva before and never had an issue with the medication. Apr, Stomatitis (ICD-10 - K12.1) He voices that the sore in the bottom of his lip was not there before he went to the dentist. He did go to the dentist five months ago and they were aggressively flossing his teeth, but the sore was not there before he went to the dentist. He does return in one month. I am going to treat him for thrush and see how he does, he is to call me with progress in one week. I do want him to show this spot to the dentist if it is still present when he is seen in one month. [facility] Other 01-13-2023 Evaluation note* Encounter Date Diagnosis Assessment Notes Treatment Notes Treatment Clinical Notes Mar, COPD (chronic obstructive pulmonary disease) (ICD-10 - J44.9) [facility] Other 01-05-2023 Evaluation note* Encounter Date Diagnosis Assessment Notes Treatment Notes Treatment Clinical Notes Mar, Hyperlipidemia (ICD-10 - E78.5) Discussed cholesterol results with patient today. Total is 188. HDL is 65. LDL is 107.6. Triglycerides are 77. VLDL is 15.4. I would like him to continue to monitor his intake of carbs and sugars. Stay active. Continue with above medication daily. Mar, Hyperglycemia (ICD-10 - R73.9) Discussed blood sugar results with patient today. Glucose is 114. HgA1C is normal at 5.4. He is to continue to monitor his intake of carbs and sugars. Mar, Shortness of breath (ICD-10 - R06.02) He voices that he mows his lawn and both of his neighbors lawn in the summer. He noticed this past summer that he had to take a break while doing this. He voices that he has heart disease in his family. He had a stress test done two years ago which was reviewed today. The blood flow showed no evidence of blockage, the EKG portion showed no sign of blockage but the results showed he did not have good exercise tolerance. He refuses another stress test at this time. I did advise him that if his exercise tolerance continues to change he needs to let me know, ER sooner if needed or concerns. We discussed that for his age he may not be in good shape based on his stress test results. 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 It could be his lungs that are the issue and not his heart. He did have a PFT done almost three years ago which was also reviewed today. This showed that his lungs were not moving the air as well as they should but he had a good response to the medication. He is going to use his ProAir inhaler in the spring prior to mowing grass and will see if this helps him get through. He refuses any further testing at this time. Mar, Anemia (ICD-10 - D64.9) He does continue to take B12. His Vitamin B12 level is 1002.0. Folate is 16.0. At this time I would like him to decrease his B12 to six days a week instead of seven days. Mar, COPD (chronic obstructive pulmonary disease) (ICD-10 - J44.9) He does not use his inhaler as much as he should. We discussed his PFT which showed a good response to the medication, I did recommend that he use the ProAir prior to when he mows the lawn in the spring. Anticipate that he would be able to walk further and mow without stopping like he had to last summer. He should use the ProAir before he does anything with exertion. He can use the rescue inhaler every four hours. He voices that he will try this in the spring. Mar, Anxiety and depression (ICD-10 - F41.8) Continue with above medication as directed. Mar, BPH (benign prostatic hyperplasia) (ICD-10 - N40.0) He continues to follow with Dr. Joy as scheduled. Mar, Acid reflux (ICD-10 - K21.9) Continue with above medication daily as directed. Mar, Weight gain (ICD-10 - R63.5) His TSH is normal at 1.754. Mar, Other senior living (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 therapy (ICD-10 - Z79.899) Mar, Elevated CO2 level (ICD-10 - R79.81) His Co2 level is 32.9 which is elevated, he is unsure if he snores. He does not wake up gasping for air. I did explain to him that this is a sign of sleep apnea. If he is watching TV he is able to stay awake. For now this is something that we will continue to monitor. Mar, Memory difficulty (ICD-10 - R41.3) In the fall of 2021 he was seen by neurology and his testing was stable. He voices that his memory has taken a hit mostly with recalling names. He has never been good with directions so his goes with him but he voices that this is something that he has always been poor with. He is going to return to neurology in six months (around July 2022). Mar, Cold sore (ICD-10 - B00.1) He voices that the sores on his lip are improved, he currently has a small one on his lip but it is healing. [facility] Other 07-18-2022 Hospital Discharge instructions Patient Education 10/08/2021 15:55:11 Prostate Cancer Screening Prostate Cancer Screening The prostate is a walnut-sized gland that is located below the bladder and in front of the rectum in males. The function of the prostate (prostate gland) is to add fluid to semen during ejaculation. Prostate cancer is the second most common type of cancer in men. A screening test for cancer is a test that is done before cancer symptoms start. Screening can helpto identify cancer at an early stage, when the cancer can be treated more easily. The recommended prostate cancer screening test is a blood test called the prostate-specific antigen (PSA) test. PSA is a protein that is made in the prostate. As you age, your prostate naturally produces more PSA. Abnormally high PSA levels may be caused by: Prostate cancer. An enlarged prostate that is not caused by cancer (benign prostatic hyperplasia, BPH). This condition is very common in older men. A prostate gland infection (prostatitis). Medicines to assist with hair growth, such as finasteride. Depending on the PSA results, you may need more tests, such as: A physical exam to check the size of your prostate gland. Blood and imaging tests. A procedure to remove tissue samples from your prostate gland for testing (biopsy). Who should have screening? Screening recommendations vary based on age. If you are younger than age 40, screening is not recommended. If you are age 40 54 and you have no risk factors, screening is not recommended. If you are younger than age 55, ask your health care provider if you need screening if you have oneof these risk factors: ?Being of -[place] descent. ?Having a family history of prostate cancer. If you are age 55 69, talk with your health care provider about your need for screening and how often screening should be done. If you are older than age 70, screening is not recommended. This is because the risks that screening can cause are greater than the benefits that it may provide (risks outweigh the benefits). If you are at high risk for prostate cancer, your health care provider may recommend that you have screenings more often or start screening at a younger age. You may be at high risk if you: Are older than age 55. Are -N[place]ien. Have a father, brother, or uncle who has been diagnosed with prostate cancer. The risk may be higher if your family member's cancer occurred at an early age. What are the benefits of screening? There is a small chance that screening may lower your risk of dying from prostate cancer. The chance is small because prostate cancer is typically a slow-growing cancer, and most men with prostate cancer from a different cause. What are the risks of screening? The main risk of prostate cancer screening is diagnosing and treating prostate cancer that would never have caused any symptoms or problems (overdiagnosis and overtreatment). PSA screening cannot tell you if your PSA is high due to cancer or a different cause. A prostate biopsy is the only procedure to diagnose prostate cancer. Even the results of a biopsy may not tell you if your cancer needs enedina treated. Slow-growing prostate cancer may not need any treatment other than monitoring, so diagnosing and treating it may cause unnecessary stress or other side effects. A prostate biopsy may also cause: Infection or fever. A false negative. This is a result that shows that you do not have prostate cancer when you actually do have prostate cancer. Questions to ask your health care provider When should I start prostate cancer screening? What is my risk for prostate cancer? How often do I need screening? What type of screening tests do I need? How do I get my test results? What do my results mean? Do I need treatment? Contact a health care provider if: You have difficulty urinating. You have pain when you urinate or ejaculate. You have blood in your urine or semen. You have pain in your back or in the area of your prostate. You have trouble getting or maintaining an erection (erectile dysfunction, ED). Summary Prostate cancer is a common type of cancer in men. The prostate (prostate gland) is located below the bladder and in front of the rectum. This gland adds fluid to semen during ejaculation. Prostate cancer screening may identify cancer at an early stage, when the cancer can be treated more easily. The prostate-specific antigen (PSA) test is the recommended screening test for prostate cancer. Discuss the risks and benefits of prostate cancer screening with your health care provider. If you are age 70 or older, screening is likely to lead to more risks than benefits (risks outweigh the benefits). This information is not intended to replace advice given to you by your health care provider. Make sure you discuss any questions you have with your health care provider. Document Released: 12/19/2017 Document Revised: 02/20/2018 Document Reviewed: 12/19/2017 [employer] Patient Education 2020 [employer]. Follow Up Care 07/25/2021 09:55:06 With:BENITA SELF, Moise Bills, URL Address: [facility] [address] , [place] [address] [phone] When:10/08/2022 [facility] Ang[facility]lica 06-23-2022 Evaluation note* Encounter Date Diagnosis Assessment Notes Treatment Notes Treatment Clinical Notes Aug, Hyperlipidemia (ICD-10 - E78.5) Discussed cholesterol results with patient today. Total is 169. HDL is 70. LDL Is 90.4. Triglycerides are 43. Readings are at goal. He is to continue with above medication daily. Continue watching diet to include intake of carbs and sugars. Stay active. Aug, Hyperglycemia (ICD-10 - R73.9) Discussed blood sugar results with patient today. Glucose is 110. HgA1C is down from 5.6 to 5.4 which is normal. Aug, Anemia (ICD-10 - D64.9) We discussed that his HGB has gone down from 14.4 to 13.9. B12 is 620. Folate is 7.8. I would like him to continue with the Vitamin B12 as directed. Aug, Cold sore (ICD-10 - B00.1) He voices that he has a history of cold sores but the Valtrex does not seem to be helping. He is in the sun alot and feels this could have contributed to this recent outbreak. He has been using Abreva but this is costly and it has not been helping. He has taken the Valtrex orally and it does not seem to be helping either. I did explain to him that beyond that he should see a power plant assistant. He should wear a wide brimmed hat, and wear a chapstick with SPF to protect this area from the sun. If he wants to see a power plant assistant he should let me know. If he has one particular sore that does not heal or bleeds he must see dermatology. Aug, Anxiety and depression (ICD-10 - F41.9) He does continue to use and benefit from the above medication. Aug, BPH (benign prostatic hyperplasia) (ICD-10 - N40.0) Continue with above medication and follow with Dr. Joy as directed. Aug, Abnormal thyroid blood test (ICD-10 - R94.6) His TSH is normal at 1.463. Aug, COPD (chronic obstructive pulmonary disease) (ICD-10 - J44.9) Continue with above medication as directed. Aug, Constipation (ICD-10 - K59.00) Continue with above medication as needed. Aug, longterm use of drug (ICD-10 - Z79.899) Aug, Memory difficulty (ICD-10 - R41.3) He voices that he does follow with Dr. Stewart but is not sure when his next appointment is. Aug, Acid reflux (ICD-10 - K21.9) He does continue with above medication daily as directed. Aug, Other He voices that the Metronidazole did not agree with him so he stopped taking it. He voices that he had a colonoscopy done and nothing was found. [facility] Other 03-14-2022 Evaluation note* Encounter Date Diagnosis Assessment Notes Treatment Notes Treatment Clinical Notes May, COPD (chronic obstructive pulmonary disease) (ICD-10 - J44.9) [facility] Other 02-16-2022 Evaluation note* Encounter Date Diagnosis Assessment Notes Treatment Notes Treatment Clinical Notes Apr, Constipation (ICD-10 - K59.00) RTO 4-6 WEEKS Apr, Abdominal pain (ICD-10 - R10.9) Apr, Nausea (ICD-10 - R11.0) [facility] Other 01-12-2022 Evaluation note* Encounter Date Diagnosis Assessment Notes Treatment Notes Treatment Clinical Notes Mar, COVID-19 (ICD-10 - U07.1) He tested positive on a home test last week. He does not feel like eating and has no appetite. I did explain to him that it can take time for this to return. He does not have alot of energy and is told that this can take months to return. He will need to rest and listen to his body. Mar, Acute sinusitis (ICD-10 - J01.90) He would like to be treated with an antibiotic for sinus symptoms that he currently has. I will provide him with above medication. He is to eat yogurt daily while on ATB to prevent GI upset. Rest, push fluids. Avoid the sun due to sun sensitivity. Mar, Other 1:52 PM - 1:58 PM [facility] Other 01-04-2022 Evaluation note* Encounter Date Diagnosis Assessment Notes Treatment Notes Treatment Clinical Notes Mar, Fatigue (ICD-10 - R53.83) Mar, Exposure to COVID-19 virus (ICD-10 - Z20.828) [facility] Other 12-21-2021 Evaluation note* Encounter Date Diagnosis Assessment Notes Treatment Notes Treatment Clinical Notes Feb, Hyperlipidemia (ICD-10 - E78.5) Discussed cholesterol results with patient today. Total is 169. HDL is 67. LDL is 93.6. Triglycerides are 42. Readings are at goal. He is to continue with the Simvastatin. Feb, Abdominal pain (ICD-10 - R10.9) He had diverticulitis in the past and he ate popcorn last night and his stomach hurt this morning. He has pain in the left side today but voices that since he woke up it is better. He says his pain is always in the left side. He voices that once he is up the pain seems to resolve. The pain is mostly in the morning when he is waking up, it does not wake him up. He will try to have a bowel movement and will have gas which helps but does not always have a bowel movement. If he rolls to the other side sometimes the pain will ease up. He is usually always able to pass gas. Signs/symptoms of diverticulitis were reviewed. If he ever has persistent pain that does not resolve then he should go to the ER for evaluation. He did take above medication today which has helped his symptoms. Will refer him to Dr. Puente to discuss/evaluate further. Feb, Hyperglycemia (ICD-10 - R73.9) Discussed blood sugar results with patient today. Glucose is 108. HgA1C is 5.6 which is at the higher end of normal. He admits to drinking alot of coffee with sugar. I did recommend that he watch his intake of carbs and sugars. Stay active. Will continue to monitor. Feb, Anemia (ICD-10 - D64.9) His B12 level is 802. Folate is 9.6. He is to continue with his B12 supplement as directed. Feb, Constipation (ICD-10 - K59.00) He continues to have constipation issues, voices that he has had episodes of black and dark stools. He will have stomach issues even when he lays on his side. He previously followed with Dr. Epps but would like to see Dr. Puente. I will refer him. He did start taking Metamucil and voices that this caused stomach issues. He denies mucous in the stools. Feb, Weight gain (ICD-10 - R63.5) Feb, COPD (chronic obstructive pulmonary disease) (ICD-10 - J44.9) Continue with above medication daily as directed. Feb, longterm use of drug (ICD-10 - Z79.899) Feb, Abnormal thyroid blood test (ICD-10 - R94.6) His TSH is 2.120, this is something we will continue to monitor. Feb, BPH (benign prostatic hyperplasia) (ICD-10 - N40.0) He continues to follow with Dr. Joy and has an appointment with him next month (Mar 2021). Feb, Anxiety and depression (ICD-10 - F41.9) He does continue to use and benefit from the Venlafaxine. Feb, Memory difficulty (ICD-10 - R41.3) He does follow with Dr. Stewart, he recently saw him. He is still driving and is not getting lost with familiar areas. He forgets things like peoples names, he may have to sit for long periods of time to recall peoples names. He will have another memory test done when he sees Dr. Stewart again. Feb, Elevated CO2 level (ICD-10 - R79.81) He denies snoring, waking himself up gasping for air. His CO2 level is 32.7. He feels rested when he wakes. Will continue to monitor. Feb, Other He voices that he continues to drop things with his right hand and this issue is worsening. Dr. Stewart is unsure why this is. He is continuing to monitor this. He will be seeing Dr. Diego for evaluation next month (Mar 2021). [facility] Other 07-09-2021 NoteHNO ID: [id number] Author: Addis Michaud MD Service: ? Author Type: Physician Type: Progress Notes Filed: 09/29/2020 4:07 PM Note Text: NEW PATIENT OFFICE VISIT Jb Vail's PCP is Kun Olvera DO. My final recommendations will be communicated back to the requesting physician by way of shared Medical record or letter to requesting physician via US mail. CC: New Patient HPI: Mr. Vail is a 75 year old male who presents for evaluation of New Patient. He is here with his today In the past year he has had more dyspnea when mowing lawn, snow blowing. Has to take a break. Has a basement with flight of stairs, but seems to do fine with that. He helped his son move a couple of years ago. It was hot that day and up and down which caused more dyspnea as well. It sounds like cold air in the wintertime and then heat humidity affects him as well. He has been told he has COPD in the past, he was seeing a [place] software design engineer. He had PFTs, about 2 years. He was started on spiriva respimat. Has Spiriva, he was using as needed. He sometimes uses albuterol. Unclear if this helps or not Trouble swallowing food now. No pain. He has to cough up and clear his throat a lot. Sounds like this is mostly with solid foods and not liquids. He had an EGD locally, he had a dilation but did not seem to work. This was a couple of years ago. He just recently saw his GI doctor earlier this week for some bowel issues. He did not mention the swallow concerns at the time. No pneumonia or bronchitis episodes No known seasonal allergies that he is aware of No cardiac disease that he is aware of. Once in a while he gets some chest jolt. He was unable to do stress test, about 3-4 years ago. Had to stop due to dyspnea. He thinks they ended up doing a pharmacological stress test as that initial test was treadmill. He is not sure. It does not sound like he has had an echocardiogram that they can recall. Former smoker: started in college around age 20, quit now >20 years now. He smoked about 3 packs per day the last few years before he quit. 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 HEENT: Negative for frequent or significant headaches NECK: Negative for pain or significant neck swelling RESPIRATORY: see HPI CARDIOVASCULAR: Negative for chest pain, leg swelling or palpitations GI: No nausea, vomiting, or diarrhea : No history of dysuria or frequency MUSCULOSKELETAL: negative SKIN: Negative for lesions, rash, and itching . PSYCH: Negative for sleep disturbance, mood disorder HEMATOLOGY/LYMPHOLOGY: Negative for prolonged bleeding ENDOCRINE: Negative for cold or heat intolerance NEURO: No history of headaches, syncope The remainder of the review of systems is negative. PMH, FAMH, SOCIAL History AND Allergies were verified and updated, and medications were reconciled with the patient at this visit. PAST MEDICAL HISTORY Diagnosis Date - Cervical spondylosis with myelopathy : PAST SURGICAL HISTORY Procedure Laterality Date - LAMINECTOMY,LUMBAR 2000 - SPINE FUSION,ANTER,3 SGMTS 2000 cervical : FAMILY HISTORY Problem Relation Age of Onset - other (multiple sclerosis [Other]) Brother - Cancer Father - Cancer Son brain tumor, 2000 - other (kidney [Other]) Sister , renal failure age 50 - Stroke Paternal Grandfather - Thyroid Maternal Grandmother - Psychiatry Mother : Social History Tobacco Use - Smoking status: Former Smoker Packs/day: 1.00 Years: 10.00 Pack years: 10.00 Types: Cigarettes Quit date: 2007 Years since quittin.5 - Smokeless tobacco: Never Used - Tobacco comment: previously quit 10 years, smoked 30 years before that Vaping Use - Vaping Use: Never used Substance Use Topics - Alcohol use: Yes Comment: once every 3 months - Drug use: No Allergies: ALLERGIES Allergen Reactions - Penicillins Rash - Sulfa (Sulfonamide * Rash Current Medications: Current Outpatient Medications Medication Sig Dispense Refill - SPIRIVA RESPIMAT 2.5 mcg/actuation inhaler - albuterol sulfate 90 mcg/actuation aebs Inhale as instructed. - dicyclomine (BENTYL) 20 mg tablet TAKE ONE TABLET BY MOUTH EVERY 6 HOURS NEEDED FOR ABDOMINAL PAIN - finasteride (PROSCAR) 5 mg tablet Take 5 mg by mouth once daily. - simvastatin (ZOCOR) 40 mg tablet Take 40 mg by mouth daily at bedtime. - venlafaxine (EFFEXOR) 75 mg tablet Take 75 mg by mouth once daily. - valACYclovir (VALTREX) 500 mg tablet Take 1,000 mg by mouth twice daily as needed. - cyanocobalamin (VITAMIN B-12) 1,000 mcg tab Take 1,000 mcg by mouth three times a week. - COQ10, LIPOSOMAL UBIQUINOL, ORAL Take by mouth once (more content not included)...[facility]07-09-2021 NoteProcedure (PULMAV) JB VAIL ([id number]) 1945 M Date Time Provider Department 09/29/20 8:30 AM PULM LAB [facility] REJ PULMAV During your visit today, we recorded the following information about you: Referring Provider: SELF [200] Allergies As of Date: 09/29/2020 Noted Allergy Reaction PENICILLINS 05/27/2001 2 - Rash SULFA (SULFONAMIDE ANTIBIOTICS) 05/27/2001 2 - Rash Date Reviewed: 09/29/2020 Reviewed by: Barb Lozoya, PEER SPECIALIST - Fully Assessed Reason for Visit: Spirometry [191] Visit Diagnosis:Dyspnea on exertion [R06.00] Order(s):SPIROMETRY WITH DILATOR IF OBSTRUCTED [9022023] Order #: [id number] Prescriptions as of 09/29/2020 - dicyclomine (BENTYL) 20 mg tablet TAKE ONE TABLET BY MOUTH EVERY 6 HOURS NEEDED FOR ABDOMINAL PAIN - finasteride (PROSCAR) 5 mg tablet Take 5 mg by mouth once daily. - simvastatin (ZOCOR) 40 mg tablet Take 40 mg by mouth daily at bedtime. - venlafaxine (EFFEXOR) 75 mg tablet Take 75 mg by mouth once daily. - Omeprazole 40 mg capsule Take 40 mg by mouth once daily. - lubiprostone (AMITIZA) 24 mcg capsule Take 24 mcg by mouth twice daily with meals. - valACYclovir (VALTREX) 500 mg tablet Take 1,000 mg by mouth twice daily as needed. - cyanocobalamin (VITAMIN B-12) 1,000 mcg tab Take 1,000 mcg by mouth three times a week. - COQ10, LIPOSOMAL UBIQUINOL, ORAL Take by mouth once daily. - CELEBREX 200 MG CAP Take one(1) tablet two(2) times daily. - SOMA 350 MG TAB Take one(1) tablet three times daily as necessary - PERCOCET 5 MG-325 MG TAB Take one(1) tablet three or four(4) times daily as needed for pain. - LUNESTA 3 MG TAB Take one(1) tablet at bedtime as needed for insomnia. Problem List As Of Date 09/29/2020 Noted Resolved CERV SPONDYL W MYELOPATH [M47.12] ABN INVOLUN MOVEMENT NEC [R25.8, R25.9] Encounter Status:Closed by BARB LOZOYA on 09/29/20[facility] 09-29-2020 NoteHNO ID: [id number] Author: Barb Julio RT(R) Service: Radiology Author Type: Extractor Loader And Unloader Type: Progress Notes Filed: 09/29/2020 8:07 AM Note Text: Radiology Service Progress Note PATIENT NAME: Jb Vail DATE OF SERVICE: September 29, 2020 TIME: 8:07 AM PATIENT IDENTITY VERIFICATION COMPLETED USING TWO (2) IDENTIFIERS: Name and Date of confirmed by patient verbally and Name and Date of confirmed by identification band. FALL SCREENING: Has the patient had 2 falls in the last year or 1 fall with injury or currently using an Ambulatory Assistive Device (Walker, Cane, Wheelchair, Crutches, etc.)? No PATIENT GENDER DATA: Male PATIENT RELEVANT IMPLANT DATA REVIEWED: Not Applicable RADIOLOGY DEPARTMENT: General X-ray: Exam(s) Completed: Chest X-Ray PERIPHERAL IV DATA: Not applicable SIGNED BY: RT Mg(R) September 29, 2020 [facility] Future Appointments Appointment Date:10/11/2022 08:00:00 AM Scheduled Provider:Moise JOY MD Location:[facility] Appointment Type:URO Office Visit Diagnostic Tests Pending * PSA Total 10/08/21 [facility] evaluation + Plan note Future Appointments Appointment Date:01/30/2024 08:30:00 AM Scheduled Provider:Moise JOY MD [facility] Appointment Type:URO Office Visit Diagnostic Tests Pending * PSA Total 01/27/23 [facility] evaluation + Plan note Future Appointments Appointment Date:01/30/2024 08:30:00 AM Scheduled Provider:Moise JOY MD Location:[facility] Appointment Type:URO Office Visit [facility] evaluation noteNo [employer] Other [facility] general Narrative - Reported* Type Description Date Medical History History of Chicken Pox/Measles/M umps Medical History follows with Dr. Agustín jaimes for his prostate and kidneys Medical History hyperlipidemia Medical History BPH Medical History insomnia Medical History acid reflux Medical History anxiety Medical History COPD Surgical History Neck and Back 2001 Surgical History Finger 1976 Surgical History tonsillectomy Surgical History adenoidectomy Surgical History TRUS with Biopsy Dr. 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 Pressley 08-07-18 Surgical History Colonoscopy, EGD, Dr. Puente 08/22 Hospitalization History see above [facility] Other History general Narrative - Reported* Type Description Date Medical History History of Chicken Pox/Measles/M umps Medical History follows with Dr. Agustín jaimes for his prostate and kidneys Medical History hyperlipidemia Medical History BPH Medical History insomnia Medical History acid reflux Medical History anxiety Medical History COPD Surgical History Neck and Back 2001 Surgical History Finger 1976 Surgical History tonsillectomy Surgical History adenoidectomy Surgical History TRUS with Biopsy Dr. 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 Pressley 08-07-18 Hospitalization History see above [facility] Other Hospital course Narrative No data available for this section [facility] Hospital Discharge instructions No data available for this section [facility] progress note No data available for this section [facility] Summary Purpose Family History No Family History Records FoundNo Family History Records FoundNo Family History Records FoundNo Family History Records Found No data available for this section No data available for this section No Family History Records Found Advance Directives No Advanced Directives Records FoundNo Advanced Directives Records FoundNo Advanced Directives Records FoundNo Advanced Directives Records FoundNo Advanced Directives Records Found Reason for Referral Reason appt pt needs cons ult to discuss constipation, change in bowel habits, dark stools Diagnosis 1 Constipation (K59.00 ) Referral Organization [facility] Referring Provider First Name Keith Referring Provider Last Name Prieto Referring Provider Specialty Family Prac tomy Referred Organization [facility] Gastroenterolo gy Referred Provider Keith Puente Referred Address [address] ,[facility] [address] ,[place],[address] Referred Provider Specialty Gastroentero logy Referral Priority Routine General Notes Jo Ann Helms 03/13/2021 09:01:08 AM > referral sent p2p. pt understands he will be contacted to schedule this appt. Additional Source Comments (unrecognized sect ion and content) No Status Records FoundNo Status Records FoundNo Status Records FoundNo Status Records FoundNo Status Records Found INFORMATION SOURCE (unrecogn ized section and content) DATE CREATED AUTHOR 09/30/2020 [facility] DATE CREATED AUTHOR AUTHOR'S ORGANIZ ATION 05/07/2021 [facility] DATE CREATED AUTHOR AUTHOR'S ORGANIZ ATION 08/27/2021 [facility] DATE CREATED AUTHOR AUTHOR'S ORGANIZ ATION 04/16/2022 [facility] DATE CREATED AUTHOR AUTHOR'S ORGANIZ ATION 05/14/2023 [facility] REASON FOR VISIT (unrecogniz ed section and content) review labssinus congestion/ weaknessreview labsPCR resultstesting questionrefillPATIENT COMPLAINING OF CONSTIPATION AND BLOOD IN STOOLClinical Acute Illnessreview labsrefillClinicalpossible thrushClinicalClinicalClinical / labreview labsClinicalrefillRefillsreview labsClinical Acute Illness Care Team (unrecognized sect ion and content) Personnel Name: Keith Atkinson DO Address: [address] [place], [place] [id number] Name: Teetee Gonzalez Personnel Name: Keith Atkinson DO Address: Address: [address] [place], [place] [id number] Name: Teetee Gonzalez Personnel Name: Keith Atkinson DO Address: Address: [address] [place] [address] Name: Teetee Gonzalez FOR RECORDS PERTAINING TO PATIENTS WHO ARE OR HAVE BEEN ENROLLED IN A CHEMICAL DEPENDENCY/SUBSTANCEABUSE PROGRAM, SOME INFORMATION MAY BE OMITTED. This clinical summary was aggregated from multiple sources. Caution should be exercised in using it in the provision of clinical care. This summary normalizes information from multiple sources, and as a consequence, information in this document may materially change the coding, format and clinical context of patient data. In addition, data may be omitted in some cases. CLINICAL DECISIONS SHOULD BE BASED ON THE PRIMARY CLINICAL RECORDS. [facility] [employer] [facility]. provides no warranty or guarantee of the accuracy or completeness of information in this document.
[2023-10-09 09:33] LABS: Basophils Percent Auto 0.4 % (0.2-2.0); Eosinophils Absolute Auto 0.1 10^3/uL (0.0-0.7); Eosinophils Percent Auto 1.1 % (0.9-7.0); Hematocrit 42.4 % (42.0-54.0); Hemoglobin 13.7 g/dL (14.0-18.0); Immature Granulocytes Abs Auto 0.02 10^3/uL (0.00-0.03); Immature Granulocytes Pct Auto 0.3 % (0.0-0.5); Lymphocytes Absolute Auto 2.1 10^3/uL (1.2-3.8); Lymphocytes Percent Auto 25.9 % (20.5-60.0); Mean Corpuscular HGB Conc 32.3 g/dL (29.9-35.2); Mean Corpuscular Hemoglobin 31.4 pg (25.9-34.0); Mean Platelet Volume 9.1 fL (9.5-13.5); Monocytes Absolute Auto 0.7 10^3/uL (0.3-0.8); Monocytes Percent Auto 9.1 % (1.7-12.0); Neutrophils Percent Auto 63.2 % (43.0-75.0); Platelet Count 234 10^3/uL (150-450); Red Blood Count 4.37 10^6/uL (4.70-6.10); Red Cell Distribution Width 13.1 % (11.0-15.0); White Blood Count 7.9 10^3/uL (4.0-11.0)
[2023-10-09 11:08] LABS: Estimated Average Glucose 108 mg/dL; Glycohemoglobin A1C 5.4 % (4.5-6.2)
[2023-10-09 11:31] LABS: Anion Gap 10.6; Aspartate Amino Transferase 24 U/L (15-37); Bilirubin Total 0.7 mg/dL (0.2-1.0); Calcium 9.1 mg/dL (8.5-10.1); Carbon Dioxide 28.9 mmol/L (21.0-32.0); Chloride 103 mmol/L (98-107); Estimated GFR (African America >60 (>=60); Estimated GFR (Non-African Ame >60 (>=60); Glucose 104 mg/dL (74-106); Potassium 4.5 mmol/L (3.5-5.1); Sodium 138 mmol/L (136-145)
[2023-10-09 11:32] LABS: Alanine Aminotransferase 31 U/L (16-63); Albumin Level 3.6 g/dL (3.4-5.0); Alkaline Phosphatase 63 U/L (46-116); Cholesterol 192 mg/dL (<=200); Globulin 3.7 g/dL; HDL Cholesterol 63 mg/dL (40-60); Thyroid Stimulating Hormone 1.603 uIU/mL (0.358-3.740); Total Protein 7.3 g/dL (6.4-8.2); Triglycerides 94 mg/dL (<=150); VLDL CHOLESTEROL 18.8 mg/dL
== END 2023-10-09 09:11 | disposition home or self-care (01) ==
LOC: LAB 09:10
PROVIDERS: PCP Family Medicine; Visit Provider Family Medicine
DX: E78.5 Hyperlipidemia, unspecified (principal); R73.9 Hyperglycemia, unspecified; D64.9 Anemia, unspecified; R94.6 Abnormal results of thyroid function studies; Z79.899 Other long term (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 therapy
CPT/HCPCS: 36415; 80053; 80061; 82607; 82746; 83036; 84443; 85025

== ENCOUNTER 2023-10-14 09:04 | Outpatient (OUT) | payer MEDICARE, SELFPAY ==
--- NOTE | 2023-10-14 09:11 | XR_ITS ---
[address] [address] Patient Name: JB VAIL MRN: [id number] date: 1945 Sex: M Assigned Patient Location: [facility] Current Patient Location: Accession/Order Number: [id number] Exam Date: 10/14/2023 09:18 Report Date: 10/15/2023 05:59 At the request of: KEITH ATKINSON Procedure: XR chest 2V EXAMINATION: XR chest 2V HISTORY: Chest Pain R07.9 ; anterior left chest muscle pain COMPARISON: XR chest 01/06/2020 FINDINGS: LUNGS: Hyperexpanded lungs suggestive COPD. No acute infiltrates. VASCULATURE: No increased pulmonary vasculature. PLEURA: No pneumothorax, effusion, or pleural thickening. CARDIAC: No cardiomegaly or cardiac silhouette abnormality. MEDIASTINUM: No visible mass or adenopathy. BONES: Old healed posterior left rib fractures. OTHER: Negative. XR/XR chest 2V IMPRESSION: 1. No acute cardiopulmonary process. Stable chest. Electronically authenticated by: BECKA CHAMBERLAIN Date: 10/15/2023 05:59
--- OUTSIDE RECORDS SUMMARY | 2023-10-14 09:25 | XMS_ITS | CCD ---
Author Organization [facility] Care Team Providers Care Card Maker Name Role Phone Keith Atkinson Unavailable Keith [...] JOY, Moise Bills Attending Unavailable JOY, Moise R Admitting Unavailable JOY, Moise R Referring Unavailable JOY, Moise R Attending Unavailable JOY, Moise Bills Attending Unavailable Allergies Allergy Classification Reported Allergen(s) Allergy Type Date of Onset Reaction(s) Facility (20 sources) Penicillin; Translations: [penicillin] Drug Allergy hives [facility] Rep[facility] (20 sources) Sulf[facility]amide [facility] (5 sources) Penicillins; Translations: [penicillins] Drug allergy 4 Hives, Unknown Reaction, hives [facility] (4 sources) Sulfonamides (Antibiotic); Translations: [sulfa drugs] Drug allergy [facility] (1 source) Sulfonamides (Antibiotic) Drug allergy (disorder) [facility] Repository (1 source) Sulfonamides (Antibiotic) Allergy to substance 4 Unknown Reaction [facility] Medications Current Medications Medication Drug Class(es) Dates Sig (Normalized) Sig (Original) [id number] 200 actuat albuterol 0.09 mg/actuat metered dose inhaler (9 sources) beta2-Adrenergic Agonist Start: 09-26-2023 Albuterol Sulfate (Proair Hfa) 90 mcg/actuation HFA aerosol inhaler Active 2 INH INHALATION Every 4 hours September 26, 2023 12:00am Start: 06-07-2019 ProAir HFA 108 (90 Base) MCG/ACT NICK 2 inhalations Inhalation up to 4 times per day prn May, Active ciprofloxacin 500 mg oral tablet (1 source) Quinolone Antimicrobial Start: 05-12-2023 End: 06-09-2023 take 1 tablet by mouth every twelve hours Cipro 500 mg Tab 500 mg = 1 tab(s), Oral, q12hr, X 4 week(s), # 56 tab(s), Refills(s) 0, Pharmacy: [facility]/pharmacy #[id number], 177, cm, 01/27/23 11:11:00 EST, Height/Length [...] Active docusate sodium 50 mg / sennosides, assisted 8.6 mg oral tablet (3 sources) Start: [...] tablet (20 sources) 5-alpha Reductase Inhibitor Start: 08-21-2021 take 1 tablet by mouth once daily finasteride 5 mg Tab 5 mg = 1 tab(s), Oral, Daily, # 90 tab(s), Refills(s) 3, Pharmacy: [facility]), 177, cm, 10/11/22 8:05:00 EDT, [...] Refills(s) 0 Start Date: 03/29/19 Status: Ordered mecobalamin 1 mg chewable tablet (1 source) Start: 09-26-2023 take 1 tablet by mouth once daily Mecobalamin (Vitamin B12) Active 1000 MCG PO .COMPLEX September 26, 2023 12:00am 1 tablet Orally qd x6 days a week meloxicam 15 mg oral tablet (3 sources) [...] day for 10 day(s) July, Active nystatin [id number] unt/ml oral suspension (10 sources) Polyene Antifungal Start: 05-20-2022 Nystatin 590894 UNIT/ML 5 ml (2.5 ml each side of the mouth) Mouth/Throat qid for 7 days Apr, Active Start: 05-20-2022 Nystatin 81182 0 UNIT/ML 5 ml (2.5 ml each side of the mouth) Mouth/Throat qid for 7 days Apr, Active ProAir HFA 108 (90 Base) MCG/ACT [...] tablet (20 sources) HMG-CoA Reductase Inhibitor Start: 10-14-2023 take 40 mg by mouth once daily in the evening Simvastatin Active 40 MG PO Every evening October 14, 2023 8:28am Start: 05-27-2023 End: 10-14-2023 take 1 tablet by mouth at bedtime Simvastatin Discontinued 0 .ROUTE .COMPLEX 90 May 27, 2023 9:53am October 14, 2023 8:29am TAKE 1 TABLET BY MOUTH AT BEDTIME Start: 01-10-2017 End: 05-27-2023 take 40 mg by mouth once daily Simvastatin Discontinue d 40 MG PO Daily August 21, 2021 12:00am May 27, 2023 9:53am sucralfate 1000 mg oral tablet (1 source) Aluminum Complex Start: 07-20-2021 take 1 tablet by mouth every eight hours Carafate 1 GM 1 tablet on an empty stomach Orally tid for 30 day(s) Jun, Active 60 actuat tiotropium 0.0025 mg/actuat inhalation spray (20 sources) Anticholinergic Start: 09-26-2023 take 1 puff(s) by inhalation once daily Tiotropium [place] (Spiriva Respimat) 2.5 mcg/actuation mist Active 2 PUFF INHALATION Daily September 26, 2023 12:00am Start: 07-30-2019 take 2 puff(s) by in halation once daily Spiriva Respimat 2.5 MCG/ACT 2 puffs Inhalation Once a day quantity sufficient for 90 days July, Active Start: 07-30-2019 take 2 puff(s) by in halation once daily Spiriva Respimat 2.5 MCG/ACT 2 puffs Inhalation Once a day quantity sufficient for 90 days July, Active ubidecarenone 30 mg oral capsule (1 source) Start: 08-21-2021 Coenzyme Q10 (Co Q-10) 30 mg Capsule Active 30 MG PO Daily August 21, 2021 12:00am valACYclovir 500 mg oral tablet (20 sources) [...] sources) Serotonin and Norepinephrine Reuptake Inhibitor Start: 10-14-2023 take 75 mg by mouth once daily Venlafaxine Active 75 MG PO Daily October 14, 2023 8:28am Start: 09-19-2023 End: 10-14-2023 take 1 capsule by mouth once daily at mealtime Venlafaxine Discontinued 0 .ROUTE .COMPLEX 90 September 19, 2023 8:09am October 14, 2023 8:29am TAKE 1 CAPSULE BY MOUTH DAILY WITH FOOD Start: 09-19-2023 End: 09-19-2023 take 75 mg by mouth once daily at mealtime Venlafaxine Discontinued 75 MG PO Daily September 19, 2023 12:00am September 19, 2023 8:09am WITH FOOD Start: 03-04-2019 [facility] venlafaxine 75 mg Cap-ER 75 [...] sources) Start: 09-07-2020 [facility] Vitamin B12 1000 MCG 1 tablet Orally qd x6 days a week Aug, Active Start: 09-07-2020 take 1 tablet by mouth once da mely Vitamin B12 1000 MCG 1 tablet Orally Once a day Aug, Active Completed/Discontinued Medications Medication Drug Class(es) Dates Sig (Normalized) Sig (Original) bisacodyl 5 mg delayed release oral tablet (16 sources) Stimulant Laxative Start: 09-26-2023 End: 10-14-2023 take 2 tablets by mouth once daily Bisacodyl (Dulcolax (Bisacodyl)) 5 mg tablet,delayed release (DR/EC) Discontinued 0 PO Daily September 26, 2023 9:55am October 14, 2023 8:17am take 2 (5 MG) tablets orally daily Start: 08-21-2021 End: 09-26-2023 take 1 tablet by mouth once daily at bedtime Bisacodyl (Dulcolax (Bisacodyl)) 5 mg Tablet,Delayed Release (Dr/Ec) Discontinued 5 MG PO Daily at bedtime August 21, 2021 12:00am September 26, 2023 9:57am Start: 08-02-2021 take 2 tablets by mo [facility] once daily as needed Dulcolax 5 MG 2 tab Orally Once a day prn July, Active clotrimazole 10 mg oral lozenge (8 sources) Azole Antifungal Start: 05-20-2022 Clotrimazole 10 MG dissolve 1 osvaldo Mouth/Throat five times a day for 7 days Apr, Not-Taking/PRN lubiprostone 0.024 mg oral capsule (3 sources) Chloride Channel Activator Start: 03-30-2019 take 1 capsule by mouth twice daily Amitiza 24 mcg Cap 24 microgram = 1 cap(s), Oral, BID, # 60 cap(s), Refills(s) 0, Pharmacy: [facility]/pharmacy #[id number] Start Date: 03/30/19 Status: Ordered pantoprazole 40 mg delayed release oral tablet (15 sources) Proton Pump Inhibitor Start: 08-02-2021 End: 10-14-2023 take 40 mg by mouth once daily Pantoprazole Discontinued 40 MG PO Daily August 21, 2021 12:00am October 14, 2023 8:18am Problems Active Problems Problem Classification Problem Date [...] Resolved: 09-13-2021 Chronic Deficiency and other anemia (7 sources) Anemia, unspecified; Translations: [Anemia, unspecified] Onset: 03-13-2021 Resolved: 09-13-2021 Episodic Deficiency and other anemia (1 source) Anemia; Translations: [Anemia, unspecified] 10-14-2023 Episodic Diabetes mellitus without complication (8 sources) Hyperglycemia, unspecified; Translations: [Hyperglycemia] Onset: 03-13-2021 Resolved: 09-13-2021 Episodic Diseases of [...] sources) Candidal stomatitis Episodic Nonspecific chest pain (3 sources) Chest pain, unspecified; Translations: [Chest pain] Episodic Other aftercare (6 sources) Other longterm (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 therapy; Translations: [OTH USP CURRENT DRUG THERAPY] Onset: 03-13-2021 Resolved: 09-13-2021 Episodic Other gastrointestinal disorders (20 sources) Irritable bowel syndrome; Translations: [Irritable bowel syndrome without diarrhea] 03-29-2019 Chronic Other gastrointestinal disorders (14 sources) Irritable bowel syndrome characterized by constipation; Translations: [Irritable bowel syndrome with constipation] Chronic Other gastrointestinal disorders (3 sources) Chronic idiopathic constipation 03-29-2019 Chronic Other gastrointestinal disorders (20 sources) Constipation; Translations: [Constipation, unspecified] 08-22-2021 Episodic Other gastrointestinal disorders (5 sources) Constipation, unspecified; Translations: [Constipation, unspecified] Onset: 03-13-2021 Resolved: 09-13-2021 Episodic Other gastrointestinal disorders (3 sources) Dysphagia 03-29-2019 Episodic Other lower respiratory disease (2 sources) Shortness of breath Episodic Other nutritional; endocrine; and metabolic disorders (3 sources) Abnormal weight gain Onset: 03-13-2021 Resolved: 03-13-2021 Episodic Other nutritional; endocrine; and metabolic disorders (2 sources) Abnormal weight loss; Translations: [Loss of weight] Episodic Other nutritional; endocrine; and metabolic disorders (1 source) Weight loss; Translations: [Abnormal weight loss] 10-14-2023 Episodic Other screening for suspected conditions (not mental disorders or infectious disease) (10 sources) Abnormal results of thyroid function studies; Translations: [Abnormal blood-gas level] Onset: 03-13-2021 Resolved: 09-13-2021 Episodic Residual codes; unclassified (4 sources) Other amnesia Onset: 03-13-2021 Resolved: 09-13-2021 Episodic Residual codes; unclassified (1 source) Insomnia; Translations: [Insomnia, unspecified] 09-26-2023 Episodic Residual codes; unclassified (1 source) Memory impairment; Translations: [Other amnesia] 10-14-2023 Episodic Screening and history of mental health and substance abuse codes (3 sources) Ex-smoker 03-29-2019 Episodic Skin and subcutaneous tissue infections (2 sources) Abscess; Translations: [Cutaneous abscess, unspecified] 10-14-2023 Episodic Spondylosis; intervertebral disc disorders; other back problems (20 sources) Degeneration of lumbar intervertebral disc; Translations: [Other intervertebral disc degeneration, lumbar region] Chronic Unclassified (3 sources) Patient encounter status 03-29-2019 Viral infection (4 sources) Herpesviral vesicular dermatitis; 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] Onset: 09-13-2021 Resolved: 09-13-2021 Episodic Past or [...] Test Name Value Interpretation Reference Range Facility Basophils Auto (Bld) [#/Vol] on 10-09-2023 Basophils (Bld) [#/Vol] 0.0 10 3/uL 0.0-0.1 [facility] Basophils/100 WBC Auto (Bld) on 10-09-2023 Basophils/100 WBC (Bld) 0.4 % 0.2-2.0 [facility] Cholesterol in LDL Calc [Mas s/Vol]on 10-09-2023 Cholesterol in LDL [Mass/Vol] 111.0 mg/dL [facility] Comment on above: <100 mg/dl [id number] 0-129 mg/dl NEAR OR ABOVE [id number] mg/dl BORDERLINE [id number] mg/dl HIGH>190 mg/dl VERY HIGH Cholesterol in VLDL Calc [Ma ss/Vol]on 10-09-2023 Cholesterol in VLDL [Mass/Vol] 18.8 mg/dL [facility] Eosinophils/100 WBC Auto (Bl d)on 10-09-2023 Eosinophils/100 WBC (Bld) 1.1 % 0.9-7.0 [facility] Erythrocyte distribution wid th Auto (RBC) [Ratio]on 10-09-2023 Erythrocyte distribution width (RBC) [Ratio] 13.1 % 11.0-15.0 [facility] Estimated glomerular filtrat ion rate (GFR) non- Americanon 10-09-2023 GFR/1.73 sq M.predicted among non-blacks MDRD (S/P/Bld) [Vol rate/Area] mL/min/{1.73_m2} >=60 [facility] Globulin Calc (S) [Mass/Vol] on 10-09-2023 Globulin (S) [Mass/Vol] 3.7 g/dL [facility] Glucose mean value [Mass/vol ume] in Blood Estimated from glycated hemoglobinon 10-09-2023 Average glucose Estimated from glycated hemoglobin (Bld) [Mass/Vol] 108 mg/dL [facility] Hematocrit Auto (Bld) [Volum e fraction]on 10-09-2023 Hematocrit (Bld) [Volume fraction] 42.4 % 42.0-54.0 [facility] Hemoglobin [Mass/volume] in Bloodon 10-09-2023 Hemoglobin (Bld) [Mass/Vol] 13.7 g/dL Low 14.0-18.0 [facility] Laboratory - Chemistry and C hemistry - challengeon 10-09-2023 Albumin [Mass/Vol] 3.6 g/dL 3.4-5.0 [facility] ALP [Catalytic activity/Vol] 63 U/L 46-116 [facility] ALT [Catalytic activity/Vol] 31 U/L 16-63 [facility] AST [Catalytic activity/Vol] 24 U/L 15-37 [facility] Bilirubin [Mass/Vol] 0.7 mg/dL 0.2-1.[address] [facility] Calcium [Mass/Vol] 9.1 mg/dL 8.5-10.1 [facility] Chloride [Moles/Vol] 103 mmol/L 98-[address] [facility] Cholesterol [Mass/Vol] 192 mg/dL <=200 [facility] Cholesterol in HDL [Mass/Vol] 63 mg/dL High 40-60 [facility] Comment on above: > or =60 mg/dl - LOW CARDIOVASCULAR RISK<40 mg/dl - HIGH CARDIOVASCULAR RISK CO2 [Moles/Vol] 28.9 mmol/L 21.0-32.0 [facility] Cobalamin (Vitamin B12) [Mass/Vol] 761.0 pg/mL 193.0-986.0 [facility] Creatinine [Mass/Vol] 0.79 mg/dL 0.70-1.30 [facility] GFR/1.73 sq M.predicted MDRD (S/P/Bld) [Vol rate/Area] mL/min/{1.73_m2} >=60 [facility] Glucose [Mass/Vol] 104 mg/dL 74-106 [facility] Potassium [Moles/Vol] 4.5 mmol/L 3.5-5.1 [facility] Protein [Mass/Vol] 7.3 g/dL 6.4-8.2 [facility] Sodium [Moles/Vol] 138 mmol/L 136-145 [facility] Triglyceride [Mass/Vol] 94 mg/dL <=150 [facility] TSH Qn 1.603 m[IU]/L 0.358-3.740 [facility] Urea nitrogen [Mass/Vol] 15.0 mg/dL 7.0-18.0 [facility] Urea nitrogen/Creatinine [Mass ratio] 19.0 mg/mg [facility] Laboratory - Hematology and Cell countson 10-09-2023 HbA1c (Bld) [Mass fraction] 5.4 % 4.5-6.2 [facility] Comment on above: ADA RECOMMENDED LIMI T 4.0 - 6.0ADA THERAPEUTIC TARGET < 7.0ACTION SUGGESTED> 7.0 Immature granulocytes/100 WBC (Bld) 0.3 % 0.0-0.5 [facility] Leukocytes [#/volume] correc greg for nucleated erythrocytes in Blood by Automated counon 10-09-2023 WBC corrected for nucl RBC Auto (Bld) [#/Vol] 7.9 10 3/uL 4.0-11.0 [facility] Lymphocytes Auto (Bld) [#/Vo l]on 10-09-2023 Lymphocytes (Bld) [#/Vol] 2.1 10 3/uL 1.2-3.8 [facility] Lymphocytes/100 WBC Auto (Bl d)on 10-09-2023 Lymphocytes/100 WBC (Bld) 25.9 % 20.5-60.0 [facility] MCH Auto (RBC) [Entitic mass ]on 10-09-2023 MCH (RBC) [Entitic mass] 31.4 pg 25.9-34.0 [facility] MCHC Auto (RBC) [Mass/Vol]on 10-09-2023 MCHC (RBC) [Mass/Vol] 32.3 g/dL 29.9-35.2 [facility] MCV Auto (RBC) [Entitic vol] on 10-09-2023 MCV (RBC) [Entitic vol] 97.0 fL High 80.0-94.0 [facility] Monocytes Auto (Bld) [#/Vol] on 10-09-2023 Monocytes (Bld) [#/Vol] 0.7 10 3/uL 0.3-0.8 [facility] Monocytes/100 WBC Auto (Bld) on 10-09-2023 Monocytes/100 WBC (Bld) 9.1 % 1.7-12.0 [facility] Neutrophils Auto (Bld) [#/Vo l]on 10-09-2023 Neutrophils (Bld) [#/Vol] 5.0 10 3/uL 1.4-6.5 [facility] Neutrophils/100 WBC Auto (Bl d)on 10-09-2023 Neutrophils/100 WBC (Bld) 63.2 % 43.0-75.0 [facility] No Panel Informationon 10-08 Eosinophils # (Auto) 0.1 10 3/uL 0.0-0.7 [facility] Folate 10.90 ng/mL 8.60-58.90 [facility] Immature Granulocyte # (Auto) 0.02 10 3/uL 0.00-0.03 [facility] Platelet mean volume Auto (B ld) [Entitic vol]on 10-09-2023 Platelet mean volume (Bld) [Entitic vol] 9.1 fL Low 9.5-13.5 [facility] Platelets Auto (Bld) [#/Vol] on 10-09-2023 Platelets (Bld) [#/Vol] 234 10 3/uL 150-450 [facility] RBC Auto (Bld) [#/Vol]on RBC (Bld) [#/Vol] 4.37 10 6/uL Low 4.70-6.[address] [facility] Serum or plasma albumin/glob ulin mass ratioon 10-09-2023 Albumin/Globulin [Mass ratio] 1.0 {ratio} [facility] Serum or plasma anion gap de terminationon 10-09-2023 Anion gap [Moles/Vol] 10.6 mmol/L [facility] Serum or plasma total choles terol/high density lipoprotein (HDL) cholesterol mass melly 10-09-2023 Cholesterol.total/Ch olesterol in HDL [Mass ratio] 3.0 {ratio} [facility] Comment on above: 3.3 - 4.4 LOW RISK4. 4 - 7.1 AVERAGE RISK7.1 - 11.0 MODERATE RISK>11.0 HIGH RISK Urology Office/Clinic Noteon 01-27-2023 Urology Office/Clinic Note [...] refusing KUB. Follow-up With When Contact Information DAVE SELF, DOC Wheeler In 1 year [facility] [address] [place] [address]- Additional Instructions: w/PSA Patient Education I, Lynette [...] 24 m (more content not included)... Normal [facility] Comment on above: Result Comment: Elec tronically Signed By: Moise JOY MD\.br\Date and Time Signed: 01/27/23 11:59 EST\.br\Electronically Co-Signed By: Lynette Rasmussen\.br\Date and Time Co-Signed: 01/27/23 11:58 EST Prostate Histology ([facility]) on 01-20-2023 Prostate Histology Diagnosis Info Invalid Interpretation Code [facility] Comment on above: Result Comment: A:Pr ostate,Left Lateral Base:Needle Biopsy Interpretation - - Benign prostatic tissue. MicroScopic Description - B:Prostate,Left Lateral Mid:Needle Biopsy Interpretation - - Benign prostatic tissue. MicroScopic Description - C:Prostate,Left Lateral [place]:Needle Biopsy Interpretation - - Benign prostatic tissue. MicroScopic Description - D:Prostate,Left Base:Needle Biopsy Interpretation - - Benign prostatic tissue. MicroScopic Description - E:Prostate,Left Mid:Needle Biopsy Interpretation - - Benign prostatic tissue. MicroScopic Description - F:Prostate,Left [place]:Needle Biopsy Interpretation - - Benign prostatic tissue. MicroScopic Description - G:Prostate,Right Base:Needle Biopsy Interpretation - - Benign prostatic tissue. MicroScopic Description - H:Prostate,Right Mid:Needle Biopsy Interpretation - - Benign prostatic tissue. MicroScopic Description - I:Prostate,Right [place]:Needle Biopsy Interpretation - - Benign prostatic tissue with patchy chronic inflammation. MicroScopic Description - J:Prostate,Right Lateral Base:Needle Biopsy Interpretation - - Benign prostatic tissue. MicroScopic Description - K:Prostate,Right Lateral Mid:Needle Biopsy Interpretation - - Benign prostatic tissue with patchy chronic inflammation. MicroScopic Description - L:Prostate,Right Lateral [place]:Needle Biopsy Interpretation - - Benign prostatic tissue. [...] cores 1 units cm Site ID:L color hammnods-white fixative Formalin cores 1 units cm stringy CPT code: 61893 x 12 Electronically signed by : on: 01/20/2023 12:00:15 Performed By: #### 1 [id number] ####[facility] [address] [place] [address] Consent for Procedure/Surger yon 01-14-2023 Consent for Procedure/Surgery [id number]# 1.00TIFF [facility] Consent for Treatmenton 12-23 Consent for Treatment [id number]#1 .00TIFF [facility] IntraOperative Documentson 1 IntraOperative Documents [id number]# 1.00TIFF [facility] Main OR Intraoperative Recor don 01-14-2023 Main OR Intraoperative Record IntraOp Document Type FTURO Summary Primary Physician: Moise JOY MD Finalized Date/Time: 01/14/23 10:46:07 Pt. Name: JB VAIL/Sex: 1945 Male Med Rec #: [id number] Physician: Moise JOY MD Financial #: [id number] Pt. Type: O Room/Bed: / Admit/Disch: 01/14/23 09:16:22 - Institution: Case Times FTURO Entry 1 Patient Times In Room 01/14/23 10:16:00 Out Room 01/14/23 10:37:00 Procedure Times Start 01/14/23 10:20:00 Stop 01/14/23 10:32:00 Anesthesia Times Last Modified By: ANDRADE Duque RN, Ruthann 01/14/23 10:32:45 Case Attendance FTURO Entry 1 Entry 2 Entry 3 Case Attendee DAVE SELF, Moise Duque RN, ANDRADE, Jorge Lockhart Role Performed Surgeon - Primary Tallier - Primary Scrub - Primary Time In 01/14/23 10:16:00 01/14/23 10:16:00 01/14/23 10:16:00 Time Out 01/14/23 10:37:00 01/14/23 10:37:00 01/14/23 10:37:00 Procedure PROSTATE TRANSRECTAL PROSTATE TRANSRECTAL PROSTATE TRANSRECTAL ULTRASOUND WITH BIO(.) ULTRASOUND WITH BIO(.) ULTRASOUND WITH BIO(.) Comments Last Modified By: Dunia RAMOS, ANDRADE, Dunia RAMOS, Dunia ZAFAR RN, CNOR, Ruthann 01/14/23 Calli 01/14/23 Calli 01/14/23 10:32:46 10:32:46 10:32:46 Surgical Procedures FTURO Entry 1 Procedure Description Procedure PROSTATE TRANSRECTAL Modifiers . ULTRASOUND WITH BIOPSY Surgeon Description prostate transfectak ultrasaound with biopsy Primary Procedure Yes Primary Surgeon DAVE SELF, Moise Bills Start 01/14/23 10:20:00 Stop 01/14/23 10:32:00 Anesthesia Type Local Surgical Service Urology Wound Class 2 - Clean-Contaminated Last Modified By: ANDRADE Duque RN, Ruthann 01/14/23 10:32:48 General Case Data FTURO Pre-Care [...] Position Verified Availability Equipment, Medication Time Out Moise JOY MD, Verified (If Participants Dunia RAMOS, ANDRADE, Applicable) Calli Time Out Complete 01/14/23 10:19:00 [...] ANDRADE Duque RN, Ruthann 01/14/23 10:46 Normal [facility] Main OR Preoperative Recordo n 01-14-2023 Main OR Preoperative Record Holding Area Document Type FTURO Summary Primary Physician: Moise JOY MD Finalized Date/Time: 01/14/23 10:20:23 Pt. Name: JB VAIL /Sex: 1945 Male Med Rec #: [id number] Physician: Moise JOY MD Financial #: [id number] Pt. Type: O Room/Bed: / Admit/Disch: 01/14/23 [...] of Pain: No Skin Integrity Dry, Warm, [place] Vitals - EU Blood Pressure 127/69 Pulse 70 bpm Respirations 18 br/min SPO2 Additional None RN Reviewed Yes Specimens Collected Last Modified By: ANDRADE Duque RN, Ruthann 01/14/23 10:20:21 General Comments: 97.2 Finalized By: ANDRADE Duque RN, Ruthann Document Signatures Signed By: Rebecca Glez RN 01/14/23 09:44 ANDRADE Duque RN, Ruthann 01/14/23 10:20 Normal [facility] Operative Reporton 3 Operative Report Patient: JB [...] were sent to pathology for evaluation. Normal [facility] Comment on above: Result Comment: Elec tronically Signed By: DAVE SELF, Moise Torres.klever\Date and Time Signed: 01/14/23 10:38 EDT Patient Educationon 01-15-20 Patient Education Custom Transrectal Ultrasound of the [...] for your post-operative appointment in 1-2 weeks [phone] or [phone] Normal [facility] Prostate Histology ([facility]) on 01-14-2023 PH Method of Extraction Needle Biopsy Normal [facility] Comment on above: Performed By: #### 1 [id number] ####[facility] [address] [place] [address] PH Number of Jars 2 Invalid Interpretation Code [facility] Comment on above: Performed By: #### 1 [id number] ####[facility] [address] [place] [address] PH Specimen 1 L Apx Prostate Normal [facility] Comment on above: Performed By: #### 1 [id number] ####[facility] [address] [place] [address] PH Specimen 10 R Lat Bse Prost Normal [facility] Comment on above: Performed By: #### 1 [id number] ####[facility] [address] [place] [address] PH Specimen 11 R Mid Prostate Normal [facility] Comment on above: Performed By: #### 1 [id number] ####[facility] [address] [place] [address] PH Specimen 12 R Lat Mid Prost Normal [facility] Comment on above: Performed By: #### 1 [id number] ####[facility] [address] [place] [address] PH Specimen 2 L Base Prostate Normal [facility] Comment on above: Performed By: #### 1 [id number] ####[facility] [address] [place] [address] PH Specimen 3 L Lat Apx Prost Normal [facility] Comment on above: Performed By: #### 1 [id number] ####[facility] [address] [place] [address] PH Specimen 4 L Lat Bse Prost Normal [facility] Comment on above: Performed By: #### 1 [id number] ####[facility] [address] [place] [address] PH Specimen 5 L Lat Mid Prost Normal [facility] Comment on above: Performed By: #### 1 [id number] ####[facility] [address] [place] [address] PH Specimen 6 L Mid Prost 1 Normal [facility] Comment on above: Performed By: #### 1 [id number] ####[facility] [address] [place] [address] PH Specimen 7 R Apx Prostate Normal [facility] Comment on above: Performed By: #### 1 [id number] ####[facility] [address] [place] [address] PH Specimen 8 R Base Prostate Normal [facility] Comment on above: Performed By: #### 1 [id number] ####[facility] [address] [place] [address] PH Specimen 9 R Lat Apx Prost Normal [facility] Comment on above: Performed By: #### 1 [id number] ####[facility] [address] [address] PH Type of Service Technical Only Normal [facility] Comment on above: Performed By: #### 1 [id number] ####[facility] [address] [place] [address] Insurance Correspondenceon 1 Insurance Correspondence [id number]# 1.00TIFF Normal [facility] Patient Letter FTon 2022 Patient Letter [facility] December 13, 2022 [address] [place] [address] : 1945 Dear Argleia Vail, This letter is being sent regular [...] Moise Joy M.D., F.A.C.S. [facility] [address] [place] [address] , option #3 Normal [facility] Ambulatory Visit Summaryon 0 10-11-2022 Ambulatory Visit [...] physician. Your Care Team Attending Physician - DAVE SELF, Moise Bills Primary Care Physician - Keith Atkinson DO [...] Schedule the Following Appointments Follow Up with DAVE SELF, DOC Wheeler When: Where: [facility] [address] [place] [address]- Medications What How Much When Instructions Unchanged [...] bowel syndrome) Screening for colon cancer Normal [facility] Insurance Correspondenceon 0 10-11-2022 Insurance Correspondence [id number]# 1.00CD:127 Normal [facility] Patient Educationon 10-12-19 Patient Education Oncology Prostate Cancer Screening Prostate [...] Where to find more information ? [employer]: www.cancer.org ? [employer]: www.auanet.org Contact a health care [...] adds flu (more content not included)... Normal [facility] Urology Office/Clinic Noteon 10-11-2022 Urology Office/Clinic Note [...] acknowledges understanding. Follow-up With When Contact Information DAVE SELF, Moise Bills, URL [facility] [address], [place] [address]- Additional Instructions: Patient Education Prostate Cancer Screening [...] (Hives) Soci (more content not included)... Normal [facility] Comment on above: Result Comment: Elec tronically Signed By: Moise JOY MD\.br\Date and Time Signed: 10/11/22 08:36 EDT\.br\Electronically Co-Signed By: Lynette Rasmussen.br\Date and Time Co-Signed: 10/11/22 08:32 EDT Lab Reportson 10-07-2022 Lab Reports [id number]#1 .00CD:127 Normal [facility] Lab Reports [id number]#1 .00CD:127 Normal [facility] CBC AUTO DIFFon 03-25-2022 BASO # 0.0 103/ul Normal 0.0-0.1 [facility] Comment on above: Performed By: #### L IPID, CMP, TSH #### [facility] [address] [address] [address] Peewee Russell Basophils/100 WBC (Bld) 0.3 % Normal 0.2-2.0 [facility] Comment on above: Performed By: #### L IPID, CMP, TSH #### [facility] [address] [address] [address] Peewee Russell EO # 0.1 103/ul Normal 0.0-0.7 [facility] Comment on above: Performed By: #### L IPID, CMP, TSH #### [facility] [address] [address] [address] Peewee Russell Eosinophils/100 WBC (Bld) 1.3 % Normal 0.9-7.0 [facility] Comment on above: Performed By: #### L IPID, CMP, TSH #### [facility] [address] [address] [address] Peewee Russell Erythrocyte distribution width (RBC) [Ratio] 12.4 % Normal 11.0-15.0 [facility] Comment on above: Performed By: #### L IPID, CMP, TSH #### [facility] [address] [place] [address] Dr. Peewee Russell Hematocrit (Bld) [Volume fraction] 43.2 % Normal 42.0-54.0 [facility] Comment on above: Performed By: #### L IPID, CMP, TSH #### [facility] [address] [place] [address] Dr. Peewee Russell Hemoglobin (Bld) [Mass/Vol] 14.3 g/dL Normal 14.0-18.0 [facility] Comment on above: Performed By: #### L IPID, CMP, TSH #### [facility] [address] [place] [address] Dr. Peewee Russell IG # 0.02 10e3/ul Normal 0.00-0.03 [facility] Comment on above: Performed By: #### L IPID, CMP, TSH #### [facility] [address] [place] [address] Dr. Peewee Russell IG % 0.3 % Normal 0.0-0.5 [facility] Comment on above: Performed By: #### L IPID, CMP, TSH #### [facility] [address] [place] [address] Dr. Peewee Russell LYMPH # 2.4 103/ul Normal 1.2-3.8 [facility] Comment on above: Performed By: #### L IPID, CMP, TSH #### [facility] [address] [place] [address] Dr. Peewee Russell Lymphocytes/100 WBC (Bld) 30.0 % Normal 20.5-60.0 [facility] Comment on above: Performed By: #### L IPID, CMP, TSH #### [facility] [address] [place] [address] Dr. Peewee Russell MANUAL DIFF REQ NO Normal [facility] Comment on above: Performed By: #### L IPID, CMP, TSH #### [facility] [address] [place] [address] Dr. Peewee Russell MCH (RBC) [Entitic mass] 31.0 pg Normal 25.9-34.0 [facility] Comment on above: Performed By: #### L IPID, CMP, TSH #### [facility] [address] [place] [address] Dr. Peewee Russell MCHC (RBC) [Mass/Vol] 33.1 g/dL Normal 29.9-35.2 [facility] Comment on above: Performed By: #### L IPID, CMP, TSH #### [facility] [address] [place] [address] Dr. Peewee Russell MCV (RBC) [Entitic vol] 93.7 fL Normal 80.0-94.0 [facility] Comment on above: Performed By: #### L IPID, CMP, TSH #### [facility] [address] [place] [address] Dr. Peewee Russell MONO # 0.7 103/ul Normal 0.3-0.8 [facility] Comment on above: Performed By: #### L IPID, CMP, TSH #### [facility] [address] [place] [address] Dr. Peewee Russell Monocytes/100 WBC (Bld) 8.4 % Normal 1.7-12.0 [facility] Comment on above: Performed By: #### L IPID, CMP, TSH #### [facility] [address] [place] [address] Dr. Peewee Russell NEUT # 4.7 103/ul Normal 1.4-6.5 [facility] Comment on above: Performed By: #### L IPID, CMP, TSH #### [facility] [address] [place] [address] Dr. Peewee Russell Neutrophils/100 WBC (Bld) 59.7 % Normal 43.0-75.0 [facility] Comment on above: Performed By: #### L IPID, CMP, TSH #### [facility] [address] [place] [address] Dr. Peewee Russell Platelet mean volume (Bld) [Entitic vol] 8.4 fL Critically low 9.5-13.5 [facility] Comment on above: Performed By: #### L IPID, CMP, TSH #### [facility] [address] [address] [address] Peewee Russell PLT 208 103/ul Normal 150-450 [facility] Comment on above: Performed By: #### L IPID, CMP, TSH #### [facility] [address] [address] [address] Peewee Russell RBC 4.61 106/ul Critically low 4.70-6.10 [facility] Comment on above: Performed By: #### L IPID, CMP, TSH #### [facility] [address] [address] [address] Peewee Russell WBC 7.9 103/ul Normal 4.0-11.0 [facility] Comment on above: Performed By: #### L IPID, CMP, TSH #### [facility] [address] [place] [address] Dr. Peewee Russell GLYCOHEMOGLOBIN A1Con 2022 ADA RECOMMENDATION SEE BELOW Normal [facility] Comment on above: Result Comment: ADA RECOMMENDED LIMIT 4.0 - 6.0 [facility] THERAPEUTIC TARGET < 7.0 ACTION SUGGESTED > 7.0 Performed By: #### L IPID, CMP, TSH #### [facility] [address] [address] [address] Peewee Russell Glucose [Mass/Vol] 108 mg/dL Normal [facility] Comment on above: Performed By: #### L IPID, CMP, TSH #### [facility] [address] [address] [address] Peewee Russell HbA1c (Bld) [Mass fraction] 5.4 % Normal 4.5-6.2 [facility] Comment on above: Performed By: #### L IPID, CMP, TSH #### [facility] [address] [place] [address] Dr. Peewee Russell LIPID PROFILEon 03-25-2022 CHOL-HDL RATIO NORM SEE BELOW Normal [facility] Comment on above: Result Comment: 3.3 - 4.4 LOW RISK 4.4 - 7.1 AVERAGE RISK 7.1 - 11.0 MODERATE RISK >11.0 HIGH RISK Performed By: #### L IPID, CMP, TSH #### [facility] [address] [address] [address] Peeewe Russell Cholesterol [Mass/Vol] 188 mg/dL Normal <=200 [facility] Comment on above: Performed By: #### L IPID, CMP, TSH #### [facility] [address] [address] [address] Peewee Russell Cholesterol in HDL [Mass/Vol] 65 mg/dL Critically high 40-60 [facility] Comment on above: Performed By: #### L IPID, CMP, TSH #### [facility] [address] [address] [address] Peewee Russell Cholesterol in LDL [Mass/Vol] 107.6 mg/dL Normal [facility] Comment on above: Performed By: #### L IPID, CMP, TSH #### [facility] [address] [address] [address] Peewee Russell Cholesterol.total/Ch olesterol in HDL [Mass ratio] 2.9 {ratio} Normal [facility] Comment on above: Performed By: #### L IPID, CMP, TSH #### [facility] [address] [address] [address] Peewee Russell HDL NORMAL > or = 60 mg/dl - LO W CARDIOVASCULAR RISK <40 mg/dl - HIGH CARDIOVASCULAR RISK Normal [facility] Comment on above: Performed By: #### L IPID, CMP, TSH #### [facility] [address] [address] [address] Peewee Russell LDL CALC NORMAL SEE BELOW Normal [facility] Comment on above: Result Comment: <100 mg/dl OPTIMAL 100 - 129 mg/dl NEAR OR ABOVE OPTIMAL 130 - 159 mg/dl BORDERLINE HIGH 160 - 189 mg/dl HIGH >190 mg/dl VERY HIGH Performed By: #### L IPID, CMP, TSH #### [facility] [address] [address] [address] Peewee Russell Triglyceride [Mass/Vol] 77 mg/dL Normal <=150 [facility] Comment on above: Performed By: #### L IPID, CMP, TSH #### [facility] [address] [address] [address] Peewee Russell VLDL CALC 15.4 mg/dL Normal [facility] Comment on above: Performed By: #### L IPID, CMP, TSH #### [facility] [address] [address] [address] Peewee Russell PROF 14(COMP METB)on 023 Albumin [Mass/Vol] 3.7 g/dL Normal 3.4-5.0 [facility] Comment on above: Performed By: #### L IPID, CMP, TSH #### [facility] [address] [address] [address] Peewee Russell Albumin/Globulin [Mass ratio] 1.0 {ratio} Normal [facility] Comment on above: Performed By: #### L IPID, CMP, TSH #### [facility] [address] [place] [address] Dr. Peewee Russell ALP [Catalytic activity/Vol] 68 U/L Normal 46-116 [facility] Comment on above: Performed By: #### L IPID, CMP, TSH #### [facility] [address] [place] [address] Dr. Peewee Russell ALT [Catalytic activity/Vol] 19 U/L Normal 16-63 [facility] Comment on above: Performed By: #### L IPID, CMP, TSH #### [facility] [address] [address] [address] Peewee Russell Anion gap [Moles/Vol] 8.3 mmol/L Normal [facility] Comment on above: Performed By: #### L IPID, CMP, TSH #### [facility] [address] [address] [address] Peewee Russell AST [Catalytic activity/Vol] 20 U/L Normal 15-37 [facility] Comment on above: Performed By: #### L IPID, CMP, TSH #### [facility] [address] [address] [address] Peewee Russell Bilirubin [Mass/Vol] 0.5 mg/dL Normal 0.2-1.0 [facility] Comment on above: Performed By: #### L IPID, CMP, TSH #### [facility] [address] [place] [address] Dr. Peewee Russell Calcium [Mass/Vol] 9.1 mg/dL Normal 8.5-10.1 [facility] Comment on above: Performed By: #### L IPID, CMP, TSH #### [facility] [address] [place] [address] Dr. Peewee Russell Chloride [Moles/Vol] 103 mmol/L Normal 98-107 [facility] Comment on above: Performed By: #### L IPID, CMP, TSH #### [facility] [address] [place] [address] Dr. Peewee Russell CO2 [Moles/Vol] 32.9 mmol/L Critically high 21.0-32.0 [facility] Comment on above: Performed By: #### L IPID, CMP, TSH #### [facility] [address] [place] [address] Dr. Peewee Russell Creatinine [Mass/Vol] 0.75 mg/dL Normal 0.70-1.30 [facility] Comment on above: Performed By: #### L IPID, CMP, TSH #### [facility] [address] [place] [address] Dr. Peewee Russell EGFR-AF IRAQI >60 Normal >=60 [facility] Comment on above: Performed By: #### L IPID, CMP, TSH #### [facility] [address] [place] [address] Dr. Peewee Russell EGFR-NON AF IRAQI >60 Normal >=60 [facility] Comment on above: Performed By: #### L IPID, CMP, TSH #### [facility] [address] [place] [address] Dr. Peewee Russell Globulin (S) [Mass/Vol] 3.6 g/dL Normal [facility] Comment on above: Performed By: #### L IPID, CMP, TSH #### [facility] [address] [place] [address] Dr. Peewee Russell Glucose [Mass/Vol] 114 mg/dL Critically high 74-106 T [facility] Comment on above: Performed By: #### L IPID, CMP, TSH #### [facility] [address] [address] [address] Peewee Russell Potassium [Moles/Vol] 4.2 mmol/L Normal 3.5-5.1 [facility] Comment on above: Performed By: #### L IPID, CMP, TSH #### [facility] [address] [place] [address] Dr. Peewee Russell Protein [Mass/Vol] 7.3 g/dL Normal 6.4-8.2 [facility] Comment on above: Performed By: #### L IPID, CMP, TSH #### [facility] [address] [place] [address] Dr. Peewee Russell Sodium [Moles/Vol] 140 mmol/L Normal 136-145 [facility] Comment on above: Performed By: #### L IPID, CMP, TSH #### [facility] [address] [place] [address] Dr. Peewee Russell Urea nitrogen [Mass/Vol] 16.0 mg/dL Normal 7.0-18.0 [facility] Comment on above: Performed By: #### L IPID, CMP, TSH #### [facility] [address] [place] [address] Dr. Peewee Russell Urea nitrogen/Creatinine [Mass ratio] 21.3 mg/mg Normal [facility] Comment on above: Performed By: #### L IPID, CMP, TSH #### [facility] [address] [place] [address] Dr. Peewee Russell TSHon 03-25-2022 TSH 1.754 uIU/mL Normal 0.358-3.740 [facility] Comment on above: Performed By: #### L IPID, CMP, TSH #### [facility] [address] [place] [address] Dr. Peewee Russell VIT B12 AND FOLATEon 023 Cobalamin (Vitamin B12) [Mass/Vol] 1002.0 pg/mL Critically high 193.0-986.0 [facility] Comment on above: Performed By: #### L JUAQUIN CLAIRE, TSH #### [facility] [address] [place] [address] Dr. Peewee Russell FOLATE 16.00 ng/mL Normal 8.60-58.90 [facility] Comment on above: Performed By: #### L JUAQUIN CLAIRE, TSH #### [facility] [address] [place] [address] Dr. Peewee Russell FOLATE ([facility])on 2 Folate 7.8 ng/mL Normal >3.0 [facility] Comment on above: Result Comment: A se rum folate concentration of less than 3.1 ng/mL is considered to represent clinical deficiency. Performed By: #### L JUAQUIN CLAIRE, TSH #### [facility] [address] [place] [address] Dr. Peewee Russell CBC AUTO DIFFon 09-10-2021 BASO # 0.0 103/ul Normal 0.0-0.1 [facility] Comment on above: Performed By: #### C BC #### [facility] [address] [place] [address] Dr. Peewee Russell Basophils/100 WBC (Bld) 0.5 % Normal 0.2-2.0 [facility] Comment on above: Performed By: #### C BC #### [facility] [address] [place] [address] Dr. Peewee Russell EO # 0.1 103/ul Normal 0.0-0.7 [facility] Comment on above: Performed By: #### C BC #### [facility] [address] [place] [address] Dr. Peewee Russell Eosinophils/100 WBC (Bld) 1.3 % Normal 0.9-7.0 [facility] Comment on above: Performed By: #### C BC #### [facility] [address] [place] [address] Dr. Peewee Russell Erythrocyte distribution width (RBC) [Ratio] 13.3 % Normal 11.0-15.0 [facility] Comment on above: Performed By: #### C BC #### [facility] [address] [place] [address] Dr. Peewee Russell Hematocrit (Bld) [Volume fraction] 42.1 % Normal 42.0-54.0 [facility] Comment on above: Performed By: #### C BC #### [facility] [address] [place] [address] Dr. Peewee Russell Hemoglobin (Bld) [Mass/Vol] 13.9 g/dL Critically low 14.0-18.0 [facility] Comment on above: Performed By: #### C BC #### [facility] [address] [place] [address] Dr. Peewee Russell IG # 0.03 10e3/ul Normal 0.00-0.03 [facility] Comment on above: Performed By: #### C BC #### [facility] [address] [place] [address] Dr. Peewee Russell IG % 0.4 % Normal 0.0-0.5 [facility] Comment on above: Performed By: #### C BC #### [facility] [address] [place] [address] Dr. Peewee Russell LYMPH # 1.9 103/ul Normal 1.2-3.8 [facility] Comment on above: Performed By: #### C BC #### [facility] [address] [place] [address] Dr. Peewee Russell Lymphocytes/100 WBC (Bld) 23.0 % Normal 20.5-60.0 [facility] Comment on above: Performed By: #### C BC #### [facility] [address] [place] [address] Dr. Peewee Russell MANUAL DIFF REQ NO Normal [facility] Comment on above: Performed By: #### C BC #### [facility] [address] [place] [address] Dr. Peewee Russell MCH (RBC) [Entitic mass] 32.1 pg Normal 25.9-34.0 [facility] Comment on above: Performed By: #### C BC #### [facility] [address] [address] [address] Peewee Russell MCHC (RBC) [Mass/Vol] 33.0 g/dL Normal 29.9-35.2 [facility] Comment on above: Performed By: #### C BC #### [facility] [address] [address] [address] Peewee Russell MCV (RBC) [Entitic vol] 97.2 fL Critically high 80.0-94.0 [facility] Comment on above: Performed By: #### C BC #### [facility] [address] [place] [address] Dr. Peewee Russell MONO # 0.6 103/ul Normal 0.3-0.8 [facility] Comment on above: Performed By: #### C BC #### [facility] [address] [place] [address] Dr. Peewee Russell Monocytes/100 WBC (Bld) 7.2 % Normal 1.7-12.0 [facility] Comment on above: Performed By: #### C BC #### [facility] [address] [place] [address] Dr. Peewee Russell NEUT # 5.7 103/ul Normal 1.4-6.5 [facility] Comment on above: Performed By: #### C BC #### [facility] [address] [place] [address] Dr. Peewee Russell Neutrophils/100 WBC (Bld) 67.6 % Normal 43.0-75.0 [facility] Comment on above: Performed By: #### C BC #### [facility] [address] [place] [address] Dr. Peewee Russell Platelet mean volume (Bld) [Entitic vol] 8.9 fL Critically low 9.5-13.5 [facility] Comment on above: Performed By: #### C BC #### [facility] [address] [place] [address] Dr. Peewee Russell PLT 239 103/ul Normal 150-450 [facility] Comment on above: Performed By: #### C BC #### [facility] [address] [address] [address] Peewee Russell RBC 4.33 106/ul Critically low 4.70-6.10 [facility] Comment on above: Performed By: #### C BC #### [facility] [address] [address] [address] Peewee Russell WBC 8.4 103/ul Normal 4.0-11.0 [facility] Comment on above: Performed By: #### C BC #### [facility] [address] [address] [address] Peewee Russell GLYCOHEMOGLOBIN A1Con 2021 ADA RECOMMENDATION SEE BELOW Normal [facility] Comment on above: Result Comment: ADA RECOMMENDED LIMIT 4.0 - 6.0 ADA THERAPEUTIC TARGET < 7.0 ACTION SUGGESTED > 7.0 Performed By: #### A 1C #### [facility] [address] [place] [address] Dr. Peewee Russell Glucose [Mass/Vol] 108 mg/dL Normal [facility] Comment on above: Performed By: #### A 1C #### [facility] [address] [place] [address] Dr. Peewee Russell HbA1c (Bld) [Mass fraction] 5.4 % Normal 4.5-6.2 [facility] Comment on above: Performed By: #### A 1C #### [facility] [address] [place] [address] Dr. Peewee Russell LIPID PROFILEon 09-10-2021 CHOL-HDL RATIO NORM SEE BELOW Normal [facility] Comment on above: Result Comment: 3.3 - 4.4 LOW RISK 4.4 - 7.1 AVERAGE RISK 7.1 - 11.0 MODERATE RISK >11.0 HIGH RISK Performed By: #### T SH, LIPID, CMP #### [facility] [address] [place] [address] Dr. Peewee Russell Cholesterol [Mass/Vol] 169 mg/dL Normal <=200 [facility] Comment on above: Performed By: #### T SH, LIPID, CMP #### [facility] [address] [place], [place] [id number] Dr. Peewee Russell Cholesterol in HDL [Mass/Vol] 70 mg/dL Critically high 40-60 [facility] Comment on above: Performed By: #### T SH, LIPID, CMP #### [facility] [address] [place] [address] Dr. Peewee Russell Cholesterol in LDL [Mass/Vol] 90.4 mg/dL Normal [facility] Comment on above: Performed By: #### T SH, LIPID, CMP #### [facility] [address] [place] [address] Dr. Peewee Russell Cholesterol.total/Ch olesterol in HDL [Mass ratio] 2.4 {ratio} Normal [facility] Comment on above: Performed By: #### T SH, LIPID, CMP #### [facility] [address] [place] [address] Dr. Peewee Russell HDL NORMAL > or = 60 mg/dl - LO W CARDIOVASCULAR RISK <40 mg/dl - HIGH CARDIOVASCULAR RISK Normal [facility] Comment on above: Performed By: #### T SH, LIPID, CMP #### [facility] [address] [place] [address] Dr. Peewee Russell LDL CALC NORMAL SEE BELOW Normal [facility] Comment on above: Result Comment: <100 mg/dl OPTIMAL 100 - 129 mg/dl NEAR OR ABOVE OPTIMAL 130 - 159 mg/dl BORDERLINE HIGH 160 - 189 mg/dl HIGH >190 mg/dl VERY HIGH Performed By: #### T GEORGES, LIPID, CMP #### [facility] [address] [place] [address] Dr. Peewee Russell Triglyceride [Mass/Vol] 43 mg/dL Normal <=150 [facility] Comment on above: Performed By: #### T SH, LIPID, CMP #### [facility] [address] [place] [address] Dr. Peewee Russell VLDL CALC 8.6 mg/dL Normal [facility] Comment on above: Performed By: #### T SH, LIPID, CMP #### [facility] [address] [place] [address] Dr. Peewee Russell PROF 14(COMP METB)on 022 Albumin [Mass/Vol] 3.7 g/dL Normal 3.4-5.0 [facility] Comment on above: Performed By: #### T GEORGES, LIPID, CMP #### [facility] [address] [address] [address] Peewee Russell Albumin/Globulin [Mass ratio] 1.0 {ratio} Normal [facility] Comment on above: Performed By: #### T GEORGES, LIPID, CMP #### [facility] [address] [address] [address] Peewee Russell ALP [Catalytic activity/Vol] 65 U/L Normal 46-116 [facility] Comment on above: Performed By: #### T GEORGES, LIPID, CMP #### [facility] [address] [place] [address] Dr. Peewee Russell ALT [Catalytic activity/Vol] 29 U/L Normal 16-63 [facility] Comment on above: Performed By: #### T GEORGES, LIPID, CMP #### [facility] [address] [address] [address] Peewee Russell Anion gap [Moles/Vol] 9.6 mmol/L Normal [facility] Comment on above: Performed By: #### T GEORGES, LIPID, CMP #### [facility] [address] [place] [address] Dr. Peewee Russell AST [Catalytic activity/Vol] 21 U/L Normal 15-37 [facility] Comment on above: Performed By: #### T GEORGES, LIPID, CMP #### [facility] [address] [address] [address] Peewee Russell Bilirubin [Mass/Vol] 0.5 mg/dL Normal 0.2-1.0 [facility] Comment on above: Performed By: #### T GEORGES, LIPID, CMP #### [facility] [address] [address] [address] Peewee Russell Calcium [Mass/Vol] 9.0 mg/dL Normal 8.5-10.1 [facility] Comment on above: Performed By: #### T GEORGES, LIPID, CMP #### [facility] [address] [address] [address] Peewee Russell Chloride [Moles/Vol] 104 mmol/L Normal 98-107 [facility] Comment on above: Performed By: #### T SH, LIPID, CMP #### [facility] [address] [place] [address] Dr. Peewee Russell CO2 [Moles/Vol] 31.0 mmol/L Normal 21.0-32.0 [facility] Comment on above: Performed By: #### T GEORGES, LIPID, CMP #### [facility] [address] [address] [address] Peewee Russell Creatinine [Mass/Vol] 0.75 mg/dL Normal 0.70-1.30 [facility] Comment on above: Performed By: #### T GEORGES, LIPID, CMP #### [facility] [address] [place] [address] Dr. Peewee Russell EGFR-AF IRAQI >60 Normal >=60 [facility] Comment on above: Performed By: #### T GEORGES, LIPID, CMP #### [facility] [address] [place] [address] Dr. Peewee Russell EGFR-NON AF IRAQI >60 Normal >=60 [facility] Comment on above: Performed By: #### T SH, LIPID, CMP #### [facility] [address] [place] [address] Dr. Peewee Russell Globulin (S) [Mass/Vol] 3.6 g/dL Normal [facility] Comment on above: Performed By: #### T GEORGES, LIPID, CMP #### [facility] [address] [place] [address] Dr. Peewee Russell Glucose [Mass/Vol] 110 mg/dL Critically high 74-106 [facility] Comment on above: Performed By: #### T SH, LIPID, CMP #### [facility] [address] [place] [address] Dr. Peewee Russell Potassium [Moles/Vol] 4.6 mmol/L Normal 3.5-5.1 [facility] Comment on above: Performed By: #### T SH, LIPID, CMP #### [facility] [address] [place] [address] Dr. Peewee Russell Protein [Mass/Vol] 7.3 g/dL Normal 6.4-8.2 [facility] Comment on above: Performed By: #### T GEORGES, LIPID, CMP #### [facility] [address] [place] [address] Dr. Peewee Russell Sodium [Moles/Vol] 140 mmol/L Normal 136-145 [facility] Comment on above: Performed By: #### T GEORGES, LIPID, CMP #### [facility] [address] [place] [address] Dr. Peewee Russell Urea nitrogen [Mass/Vol] 13.0 mg/dL Normal 7.0-18.0 [facility] Comment on above: Performed By: #### T GEORGES LIPID, CMP #### [facility] [address] [place] [address] Dr. Peewee Russell Urea nitrogen/Creatinine [Mass ratio] 17.3 mg/mg Normal [facility] Comment on above: Performed By: #### T GEORGES, LIPID, CMP #### [facility] [address] [place] [address] Dr. Peewee Russell TSHon 09-10-2021 TSH 1.463 uIU/mL Normal 0.358-3.740 [facility] Comment on above: Performed By: #### T GEORGES, LIPID, CMP #### [facility] [address] [place] [address] Dr. Peewee Russell VITAMIN B12on 09-10-2021 Cobalamin (Vitamin B12) [Mass/Vol] 620.0 pg/mL Normal 193.0-986.0 [facility] Comment on above: Performed By: #### V ITB12 #### [facility] [address] [place] [address] Dr. Peewee Lynne 08-22-2021 L - -------- Specimen: [id number] Received: 08/22/21 Status: LYNETTE Ino Num: [id number] Spec Type: Surgical Subm Dr: Keith Puente Jr, DO Tissues: A Duodenum - Biopsy (DUODENUM BX) Procedures: HE Stain/2, Gross/Micro L4 -------- Patient Age/Sex Location Account Attending Physician -------- Jb Vail/[facility] [id number] Keith Puente Jr, DO -------- SPEC NUM: [id number] RECD: 08/22/21 STATUS: LYNETTE INO NUM: [id number] VIET: 08/22/[address] [facility] [address]: Keith Puente Jr, ENTERED: 08/22/21 FELICIANO WHITTEN: [place] TYPE: Surgical DEPT: S ORDERED: HE Stain/2, [...] Type of Fixative: 10% Neutral Buffered Formalin (/YJ) Microscopic Description Two glass slides with H E stained material have been examined. The microscopic findings support the above pathologic diagnosis. CPT Codes 64730 -------- -------- Specimen: [id number] Received: 08/22/21 Status: LYNETTE Mckinnon Num: [id number] Spec Type: Surgical Subm Dr: Keith Puente Jr, DO Tissues: A Duodenum - Biopsy (DUODENUM BX) Procedures: HE Stain/2, Gross/Micro L4 -------- Patient: Jb Vail [id number] (Continued) -------- Signed (signature on file) Vish Alexander MD 08/23/21 1649 Normal [facility] SARS-CoV-2 (COVID-19) RNA CLARISSE+probe Ql (Unsp spec) Negative Normal Negative [facility] Comment on above: Order Comment: Healt hcare Worker?: N Result Comment: Testing for SARS-CoV-2 by RT-PCR This test was developed and its performance characteristics determined by [employer] and validated at the [facility]. This test has not been FDA [...] is terminated or revoked sooner. PERFORMED BY: [address] [place] [address] PATHOLOGIST REPORTS ANALYSIS MANAGER MITA PINO M.D. Performed By: #### C OVID 19 [facility] #### [address] abdomen pelvis w herson CT abdomen pelvis w [facility] [address] [place] [address] CT Scan Report Signed Patient: Jb Vail MR#: [id number] : 1945 Acct:[id number] Age/Sex: 75 / M ADM Date: 05/15/21 Loc: [facility] Room: Type: [facility] Attending Dr: Keith Puente DO Ordering Provider: [...] Thompson Jr., M.D.05/15/2021 7:39 PM Dictation Location: [address] [place] [address] Transcribed By: [facility] 05/15/211938 Dictated By: Wilmer Thompson Jr, MD 05/15/211625 Signed By: 05/15/211938 Normal [facility] ISTAT XRay CREon 05-15-2021 Creatinine [Mass/Vol] 0.7 mg/dL Normal 0.6-1.3 [facility] Comment on above: Result Comment: ER/E SD physician is notified/shown all ISTAT results. Critical values may be confirmed by laboratory testing if deemed necessary by ER attending doctor. Performed By: #### I SCRE #### [facility] [address] [place] [address] Point of Care testing , ISTAT GFR ( > 60 Normal [facility] Comment on above: Result Comment: GFR estimated reference range: According to KDOQI guidelines, <60 ml/min/1.73m2 is sufficient to diagnose a patient with chronic kidney disease. PERFORMED BY: [place] [address] PATHOLOGIST REPORTS ANALYSIS MANAGER MITA PINO M.D. Performed By: #### I SCRE #### [address] Point of Care testing , ISTAT GFR (Non- Am > 60 Normal [facility] Comment on above: Performed By: #### I SCRE #### [address] Point of Care testing , CNOVon 09-29-2020 CNOV Office Visit (PULMAV ) JB VAIL ([id number]) 1945 M Date Time Provider Department 09/29/20 [...] in the past, he was seeing a [place] grain roaster. He had PFTs, about 2 years. He [...] before he quit. 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 Normal [facility] XR CHEST 2V FRONTAL/LATon XR CHEST 2V [...] Chronic obstructive pulmonary disease, unspecified COPD type ([facility]) MQ: XC2_6 EXAM DATE/TIME: 09/29/2020 8:29 AM [...] rib fractures. IMPRESSION: NO ACUTE RADIOGRAPHIC ABNORMALITY. Director Of Strategic Sourcing: PSCB Transcribe Date/Time: Sep 29 2020 9:03A Dictated by : ALY MAHONEY MD This examination was interpreted and the report reviewed and electronically signed by: ALY MAHONEY MD on Sep 29 2020 9:05AM EST [id number] Normal [facility] Vital Signs Date Time Vital Sign Value Performing Clinician Facility 10-14-2023 08:12-0400 Body height 177.8 cm [facility] 10-14-2023 08:12-0400 Body mass index (BMI) [Ratio] 21.8 kg/m2 [facility] 10-14-2023 08:12-0400 Body temperature 97.3 [degF] [facility] 10-14-2023 08:12-0400 Body weight 68.94 kg [facility] 10-14-2023 08:12-0400 Diastolic blood pressure 76 mm[Hg] [facility] 10-14-2023 08:12-0400 Heart rate 68 /min [facility] 10-14-2023 08:12-0400 SaO2% (BldA) [Mass fraction] 97 % [facility] 10-14-2023 08:12-0400 Systolic blood pressure 126 mm[Hg] [facility] 04-08-2023 08:10-0500 Body height 177.8 cm Keith Atkinson Other [facility] Other 04-08-2023 08:10-0500 Body mass index (BMI) [Ratio] 23.53 kg/m2 Keith Atkinson Other [facility] Other 04-08-2023 08:10-0500 Body temperature 97.9 [degF] Keith Atkinson Other [facility] [facility] Other 04-08-2023 08:10-0500 Body weight 74.39 kg Keith Atkinson Other [facility] [facility] Other 04-08-2023 08:10-0500 Diastolic blood pressure 78 mm[Hg] Keith Atkinson Other [facility] [facility] Other 04-08-2023 08:10-0500 Respiratory rate 18 /min Keith Atkinson Other [facility] [facility] Other 04-08-2023 08:10-0500 SaO2% (BldA) [Mass fraction] 98 % Keith Atkinson Other [facility] Other 04-08-2023 08:10-0500 Systolic blood pressure 128 mm[Hg] Keith Atkinson Other [employer] [facility] Other 01-27-2023 11:09-0500 Blood Pressure Location Moise JOY [facility] 01-27-2023 11:09-0500 Diastolic blood pressure 71 mm[Hg] Moise JOY [facility] 01-27-2023 11:09-0500 Heart rate 70 /min Moise JOY [facility] 01-27-2023 11:09-0500 Respiratory rate 16 /min Moise JOY [facility] 01-27-2023 11:09-0500 Systolic blood pressure 133 mm[Hg] Moise JOY [facility] 10-01-2022 08:10-0400 Body height 177.8 cm Keith Atkinson Other [employer] [facility] Other 10-01-2022 08:10-0400 Body mass index (BMI) [Ratio] 21.88 kg/m2 Keith Atkinson Other [facility] [facility] Other 10-01-2022 08:10-0400 Body temperature 98.5 [degF] Keith Atkinson Other [facility] [facility] Other 10-01-2022 08:10-0400 Body weight 69.17 kg Keith Atkinson Other [employer] [facility] Other 10-01-2022 08:10-0400 Diastolic blood pressure 80 mm[Hg] Keith Atkinson Other [facility] [facility] Other 10-01-2022 08:10-0400 Respiratory rate 18 /min Keith Atkinson Other [facility] [facility] Other 10-01-2022 08:10-0400 SaO2% (BldA) [Mass fraction] 99 % Keith Atkinson Other [facility] [facility] Other 10-01-2022 08:10-0400 Systolic blood pressure 124 mm[Hg] Keith Atkinson Other [facility] [facility] Other 05-20-2022 09:10-0500 Body height 177.8 cm Keith Atkinson Other [facility] [facility] Other 05-20-2022 09:10-0500 Body mass index (BMI) [Ratio] 22.74 kg/m2 Keith Prieto Other [facility] Other 05-20-2022 09:10-0500 Body temperature 97.5 [degF] Keith Margaritaderek Other [employer] Other 05-20-2022 09:10-0500 Body weight 71.9 kg Keith Margaritaderek Other [employer] [facility] Other 05-20-2022 09:10-0500 Diastolic blood pressure 84 mm[Hg] Keith Prieto Other [employer] [facility] Other 05-20-2022 09:10-0500 Respiratory rate 18 /min Keith Atkinson Other [facility] [facility] Other 05-20-2022 09:10-0500 SaO2% (BldA) [Mass fraction] 98 % Keith Atkinson Other [employer] Other 05-20-2022 09:10-0500 Systolic blood pressure 122 mm[Hg] Keith Atkinson Other [employer] [facility] Other 03-28-2022 09:10-0500 Body height 177.8 cm Keith Prieto Other [employer] [facility] Other 03-28-2022 09:10-0500 Body mass index (BMI) [Ratio] 22.67 kg/m2 Keith Atkinson Other [facility] [facility] Other 03-28-2022 09:10-0500 Body temperature 98.5 [degF] Keith Margaritaderek Other [employer] [facility] Other 03-28-2022 09:10-0500 Body weight 71.67 kg Keith Atkinson Other [facility] [facility] Other 03-28-2022 09:10-0500 Diastolic blood pressure 80 mm[Hg] Keith Atkinson Other [facility] [facility] Other 03-28-2022 09:10-0500 Respiratory rate 18 /min Keith Atkinson Other [facility] [facility] Other 03-28-2022 09:10-0500 SaO2% (BldA) [Mass fraction] 99 % Keith Atkinson Other [facility] [facility] Other 03-28-2022 09:10-0500 Systolic blood pressure 118 mm[Hg] Keith Atkinson Other [employer] [facility] Other 10-08-2021 15:01-0400 Blood Pressure Location Moise SkemA [facility] 10-08-2021 15:01-0400 Diastolic blood pressure 85 mm[Hg] Moise SkemA [facility] 10-08-2021 15:01-0400 Heart rate 72 /min Moise JOY [facility] 10-08-2021 15:01-0400 Systolic blood pressure 146 mm[Hg] Moise JOY [facility] 09-13-2021 09:10-0400 Body height 177.8 cm Keith Atkinson Other [employer] [facility] Other 09-13-2021 09:10-0400 Body mass index (BMI) [Ratio] 21.88 kg/m2 Keith Atkinson Other [facility] [facility] Other 09-13-2021 09:10-0400 Body temperature 97.2 [degF] Keith Prieto Other [facility] [facility] Other 09-13-2021 09:10-0400 Body weight 69.17 kg Keith Margaritaderek Other [employer] [facility] Other 09-13-2021 09:10-0400 Diastolic blood pressure 26 mm[Hg] Keith Margaritaderek Other [facility] [facility] Other 09-13-2021 09:10-0400 Respiratory rate 18 /min Keith Margaritaderek Other [facility] [facility] Other 09-13-2021 09:10-0400 SaO2% (BldA) [Mass fraction] 98 % Keith Margaritaderek Other [facility] [facility] Other 09-13-2021 09:10-0400 Systolic blood pressure 126 mm[Hg] Keith Atkinson Other [facility] [facility] Other 05-09-2021 17:00-0500 Body height 177.8 cm Keith Onelba Other [facility] [facility] Other 05-09-2021 17:00-0500 Body mass index (BMI) [Ratio] 22.24 kg/m2 Keith Puente Other [facility] [facility] Other 05-09-2021 17:00-0500 Body weight 70.31 kg Keith Puente Other [facility] [facility] Other 03-13-2021 09:10-0500 Body height 177.8 cm Keith Atkinson Other [facility] [facility] Other 03-13-2021 09:10-0500 Body mass index (BMI) [Ratio] 22.67 kg/m2 Keith Atkinson Other [facility] [facility] Other 03-13-2021 09:10-0500 Body temperature 97.4 [degF] Keith Atkinson Other [facility] [facility] Other 03-13-2021 09:10-0500 Body weight 71.67 kg Keith Atkinson Other [facility] [facility] Other 03-13-2021 09:10-0500 Diastolic blood pressure 80 mm[Hg] Keith Atkinson Other [facility] [facility] Other 03-13-2021 09:10-0500 Respiratory rate 18 /min Keith Atkinson Other [facility] [facility] Other 03-13-2021 09:10-0500 SaO2% (BldA) [Mass fraction] 99 % Keith Atkinson Other [facility] [facility] Other 03-13-2021 09:10-0500 Systolic blood pressure 124 mm[Hg] Keith Atkinson Other [employer] Other Encounters Encounter Date Encounter Type Care Provider Facility Start: 10-14-2023 End: 10-14-2023 ambulatory [facility] Work Phone: Start: 10-14-2023 End: 10-14-2023 Patient encounter procedure [facility] [place] Work Phone: Start: 10-09-2023 Non-patient / Non-visit [facility] Work Phone: Start: 09-19-2023 Non-patient / Non-visit [facility] [place] Work Phone: Start: 05-12-2023 End: 05-13-2023 ambulatory Moise Negar DAVE Facility:[facility] Start: 05-12-2023 End: 05-12-2023 Patient encounter procedure Moise Bills DAVE [facility] Start: 04-14-2023 End: 04-14-2023 ambulatory Keith Atkinson Other [employer] [facility] Other Start: 04-14-2023 Telephone encounter Keith Atkinson [facility] Start: 04-08-2023 End: 04-08-2023 ambulatory Keith Atkinson Other [employer] Other Start: 04-08-2023 Office outpatient visit 25 minutes Keith Atkinson [facility] Start: 03-10-2023 End: 03-10-2023 ambulatory Keith Atkinson Other [employer] Other Start: 03-10-2023 Telephone encounter Keith Atkinson [facility] Start: 01-27-2023 End: 01-28-2023 ambulatory Moise Negar ADVE Facility:[facility] Start: 01-27-2023 End: 01-27-2023 Patient encounter procedure Moise Bills DAVE [facility] Start: 01-14-2023 End: 01-15-2023 ambulatory Moise JOY Facility:[facility] Start: 11-28-2022 End: 11-28-2022 ambulatory Keith Atkinson Other [employer] [facility] Other Start: 11-28-2022 Telephone encounter Keith Atkinson [facility] Start: 10-11-2022 End: 10-12-2022 ambulatory Moise JOY Facility:[facility] Start: 10-01-2022 End: 10-01-2022 ambulatory Keith Atkinson Other [employer] [facility] Other Start: 10-01-2022 Office outpatient visit 25 minutes Keith Atkinson [facility] [place] Start: 09-27-2022 End: 09-27-2022 ambulatory Keith Atkinson Other [facility] [facility] Other Start: 09-27-2022 Telephone encounter Keith Atkinson [facility] [place] Start: 06-14-2022 End: 06-14-2022 ambulatory Keith Atkinson Other [employer] Other Start: 06-14-2022 Telephone encounter Keith Atkinson [facility] [place] Start: 05-29-2022 End: 05-29-2022 ambulatory Keith Atkinson Other [employer] Other Start: 05-29-2022 Telephone encounter Keith Atkinson [facility] [place] Start: 05-20-2022 End: 05-20-2022 ambulatory Keith Atkinson Other [employer] Other Start: 05-20-2022 Office outpatient visit 15 minutes Keith Atkinson [facility] [place] Start: 04-05-2022 End: 04-05-2022 ambulatory Keith Atkinson Other [employer] Other Start: 04-05-2022 Telephone encounter Keith Atkinson [facility] [place] Start: 03-28-2022 End: 03-28-2022 ambulatory Keith Atkinson Other [employer] Other Start: 03-28-2022 Office outpatient visit 25 minutes Keith Atkinson [facility] [place] Start: 03-25-2022 End: 03-26-[address] KEITH ATKINSON Facility: Start: 10-08-2021 End: 10-08-2021 Patient encounter procedure Moise JOY [facility] Start: 10-04-2021 End: 10-05-[address] MOISE JOY Facility:H1 Start: 09-13-2021 End: 09-13-2021 ambulatory Keith Atkinson Other [employer] Other Start: 09-13-2021 Office outpatient visit 25 minutes Keith Atkinson [facility] [place] Start: 09-10-2021 End: 09-11-[address] KEITH ATKINSON Facility:[facility]1 Start: 07-20-2021 End: 07-20-2021 ambulatory Keith Puente Other [employer] Other Start: 07-20-2021 Telephone encounter Keith Puente [facility] Gastro[facility]ology Start: 06-04-2021 End: 06-04-2021 ambulatory Keith Atkinson Other [employer] Other Start: 06-04-2021 Telephone encounter Keith Atkinson [facility] [place] Start: 05-09-2021 End: 05-09-2021 ambulatory Keith Puente Other [employer] Other Start: 05-09-2021 Office outpatient visit 25 minutes Keith Puente [facility] Start: 04-04-2021 End: 04-04-2021 ambulatory Keith Atkinson Other [employer] Other Start: 04-04-2021 Telephone encounter Keith Atkinson [facility] [place] Start: 03-28-2021 End: 03-28-2021 ambulatory Keith Atkinson Other [employer] Other Start: 03-28-2021 Telephone encounter Keith Atkinson [facility] [place] Start: 03-27-2021 End: 03-27-2021 ambulatory Keith Atkinson Other [employer] Other Start: 03-27-2021 Telephone encounter Keith Atkinson [facility] [place] Start: 03-13-2021 End: 03-13-2021 ambulatory Keith Atkinson Other [employer] Other Start: 03-13-2021 Office outpatient visit 25 minutes Keith Atkinson [facility] [place] Procedures Date Procedure Procedure Detail Performing Clinician Start: 01-14-2023 Transrectal biopsy o f prostate using ultrasound guidance Moisesoren JOY Start: 10-04-[address] KEITH ATKINSON Comment on above: Performed By: #### P SAD #### [facility] [address] [address] [address] Peewee Russell Start: 07-24-2017 right elbow removal of hardware Moisesoren JOY Start: 01-15-2017 Open reduction of fr acture of elbow with internal fixation Moise JOY Comment on above: Right elbow Start: 12-26-2011 Transurethral prostatectomy Moisesoren JOY Start: 11-11-2011 Urodynamic studies Sulmar tanika JOY Start: 08-07-2010 Ultrasonography guid ed transrectal cryoablation of prostate Moise JOY Start: 03-30-2010 Cystoscopy Moise KEKE DUNLAP Arthroscopy Moise JOY Comment on above: Right shoulder lower back surgery Moise JAIMES neck surgery 3 Moise NUNES S Comment on above: zephyr plate -titani um Right hand third fin cesilia surgery Moise JOY Plan of Treatment Date Care Activity Detail Author Start: 01-30-2024 ambulatory [facility] - Serum or Plasma [facility] XR Chest 2 Views [facility] Immunizations Immunization Date Immunization Notes Care Provider Fa denita 01-20-2023 COVID-19 Vaccine Pfi zer - Documentation Purposes Only Keith Atkinson Other [facility] 01-20-2023 Flu Shot - Documentation Purposes Only Keith Atkinson Other [facility] 01-20-2023 influenza virus vaccine, unspecified formulation Moise JOY [facility] 12-06-2021 influenza virus vaccine, unspecified formulation Moise JYO [facility] 12-06-2021 SARS-CoV-2 (COVID-19 ) mRNAMUL.[id number] Moise JOY [facility] 12-06-2021 influenza, seasonal, injectable Keith Atkinson Other [facility] 06-29-2021 SARS-CoV-2 (COVID-19 ) mRNA-1273 vaccine Moise JOY [facility] Comment on above: Result Comment: 2022: [id number] 01-23-2021 influenza, seasonal, injectable Keith Atkinson Other [facility] 12-27-2020 influenza virus vaccine, unspecified formulation Moise JOY [facility] 12-27-2020 pneumococcal polysaccharide vaccine, 23 valent Moisesoren JOY [facility] 12-16-2020 COVID-19 Vaccine Moderna - Documentation Purposes Only Keith Atkinson Other [facility] Comment on above: Result Comment: 2022: [id number] 06-14-2020 zoster vaccine recombinant Keith Atkinson Other [facility] 05-30-2020 COVID-19 Vaccine Moderna - Documentation Purposes Only Keith Atkinson Other [facility] 05-01-2020 COVID-19 Vaccine Moderna - Documentation Purposes Only Keith Atkinson Other [facility] 03-21-2020 zoster vaccine recombinant Keith Atkinson Other [facility] 12-23-2019 influenza virus vaccine, unspecified formulation Moise JOY [facility] 12-23-2019 pneumococcal conjuga te vaccine, 13 valent Moise JOY [facility] 12-23-2019 influenza, seasonal, injectable Keith Atkinson Other [facility] 12-23-2019 pneumococcal polysaccharide vaccine, 23 valent Keith Atkinson Other [facility] 12-28-2018 influenza virus vaccine, unspecified formulation Moise JOY [facility] 12-22-2018 influenza virus vaccine, unspecified formulation Moise JOY [facility] 12-22-2017 influenza virus vaccine, unspecified formulation Moise JOY [facility] 12-22-2017 influenza, seasonal, injectable Keith Atkinson Other [facility] 10-05-2017 tetanus toxoid, adsorbed Keith Atkinson Other [facility] 01-20-2017 influenza virus vaccine, unspecified formulation Moise JOY [facility] 01-20-2017 pneumococcal polysaccharide vaccine, 23 valent Keith Atkinson Other [facility] 12-23-2016 influenza virus vaccine, unspecified formulation Moise JOY [facility] 12-23-2016 influenza, seasonal, injectable Keith Atkinson Other [facility] 01-10-2016 influenza virus vaccine, unspecified formulation Moise JOY [facility] 12-28-2014 influenza virus vaccine, unspecified formulation Moise JOY [facility] 01-10-2009 influenza, whole oMise PIZANO [facility] NEGATED: Highlighted row has not occurred!10-08-2021 SARS-CoV-2 mRNA (tozinameran 5y-11y) vaccine Moise JOY [facility] Payers Date Payer Category Payer Medicare [id number] [id number] 1957 Medicare [id number] 2. [id number] 1957 Medicare [id number] 1945 Unknown [id number] 2.16.84 [id number] 1945 Unknown [id number] 2.16.84 [id number] 1945 Unknown [id number] 2.16.84 [id number] 1945 Unknown [id number] 2.16.8 [id number] 1945 Unknown [id number] 2.16.8 [id number] 1945 Unknown [id number] 2.16.8 [id number] 1945 Unknown [id number] 2.16.8 [id number] 1945 Unknown [id number] 2.16.8 [id number] Medicare Medicare [id number] 0ea [id number] Self-pay Self Pay [id number] Unknown [facility] [id number] 61 [id number] Social History Date Type Detail Facility Unknown if ever smoked [facility] Other Sex Assigned At [employer] [facility] [employer] Other Start: 03-31-2020 Tobacco smoking status Never s moked tobacco (finding) [facility] Start: 01-27-2023 End: 10-14-2023 Tobacco smoking status Ex-smoker (finding) [facility] Tobacco smoking status Never [facility] Start: 1945 Sex Assigned At Male F [facility] Functional Status Date Assessment Result Facility 01-27-2023 Functional Status N/A [facility] 10-08-2021 Functional Status N/A [facility] Clinical Notes 09-29-2020 to 04-08-2023 Note [...] gone up to 14.5 which is good. Mar, Weight gain (ICD-10 - R63.5) He has [...] above medication daily as directed. 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 - Z79.899) [facility] [employer] Other 12-18-2023 Evaluation note* Encounter Date Diagnosis Assessment Notes Treatment Notes Treatment Clinical Notes Feb, COPD (chronic obstructive pulmonary disease) (ICD-10 - J44.9) [facility] Other 10-24-2023 Note [id number] Discharge instructions Follow Up Care 12/19/2022 14:25:52 With:ADVE SELF, Moise Bills, URL Address: [facility] [address], [place] [address]- When:Within 1 Year(s) Comments:w/PSA [facility] 09-07-2023 Evaluation note* Encounter Date Diagnosis Assessment Notes Treatment Notes Treatment Clinical Notes Nov, Anxiety and depression (ICD-10 - F41.8) [facility] Other 07-11-2023 Evaluation note* Encounter Date Diagnosis [...] I did recommend that he see a grain roaster, and he refuses. He states that he does not feel that he is that bad . 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 His voices that he does not use the Spiriva as directed. We discussed that there are newer medications that can be used to treat his COPD, but they should be given by a grain roaster. He only uses the Spiriva as needed. [...] I did recommend that he see a acquisitions editor for evaluation to discuss what has been going on and determine what testing needs to be done. He refuses. He does not want the hassle of going to the acquisitions editor. He states that when he hits the [...] above medication daily as directed. 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 It could be his lungs that are [...] TSH is normal at 1.754. 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 [employer] Other 07-18-2022 Hospital Discharge instructions Patient Education [...] have oneof these risk factors: ?Being of -[place] descent. ?Having a family history of prostate [...] you: Are older than age 55. Are -Scottish. Have a father, brother, or uncle who [...] 12/19/2017 Document Revised: 02/20/2018 Document Reviewed: 12/19/2017 Serious Parody Patient Education 2020 [employer]. Follow Up Care 07/25/2021 09:55:06 With:DAVE SELF, Moise Bills, URL Address: [facility] [address] [place] [address]- [phone] When:10/08/2022 [facility] Ang[facility] 06-23-2022 Evaluation note* Encounter Date Diagnosis [...] that beyond that he should see a dietitian assistant. He should wear a wide brimmed hat, and wear a chapstick with SPF to protect this area from the sun. If he wants to see a dietitian assistant he should let me know. If [...] Continue with above medication as needed. 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 [employer] Other 03-14-2022 Evaluation note* Encounter Date Diagnosis Assessment Notes Treatment Notes Treatment Clinical Notes May, COPD (chronic obstructive pulmonary disease) (ICD-10 - J44.9) [employer] Other 02-16-2022 Evaluation note* Encounter Date Diagnosis Assessment Notes Treatment Notes Treatment Clinical Notes Apr, Constipation (ICD-10 - K59.00) RTO 4-6 WEEKS Apr, Abdominal pain (ICD-10 - R10.9) Apr, Nausea (ICD-10 - R11.0) [employer] Other 01-12-2022 Evaluation note* Encounter Date Diagnosis [...] Mar, Other 1:52 PM - 1:58 PM [employer] Other 01-04-2022 Evaluation note* Encounter Date Diagnosis Assessment Notes Treatment Notes Treatment Clinical Notes Mar, Fatigue (ICD-10 - R53.83) Mar, Exposure to COVID-19 virus (ICD-10 - Z20.828) [employer] Other 12-21-2021 Evaluation note* Encounter Date Diagnosis [...] with above medication daily as directed. 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 [employer] Other 07-09-2021 NoteHNO ID: [id number] Author: Addis Michaud MD Service: ? Author [...] in the past, he was seeing a [place] grain roaster. He had PFTs, about 2 years. He [...] before he quit. 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 out on [...] Take by mouth once (more content not included)...[facility]07-09-2021 NoteProcedure (PULMAV) JB VAIL ([id number]) 1945 M Date Time Provider Department 09/29/20 8:30 AM PULM LAB [facility] REJ PULMAV During your visit today, we recorded the following information about you: Referring Provider: SELF [200] Allergies As of Date: 09/29/2020 Noted Allergy Reaction PENICILLINS 05/27/2001 2 - Rash SULFA (SULFONAMIDE ANTIBIOTICS) 05/27/2001 2 - Rash Date Reviewed: 09/29/2020 Reviewed by: Barb Lozoya, TABLE AND DESK FINISHER - Fully Assessed Reason for Visit: Spirometry [191] Visit Diagnosis:Dyspnea on exertion [R06.00] Order(s):SPIROMETRY WITH DILATOR IF OBSTRUCTED [1343984] Order #: [id number] Prescriptions as of 09/29/2020 - dicyclomine (BENTYL) [...] R25.9] Encounter Status:Closed by BARB LOZOYA on 09/29/20[facility] 09-29-2020 NoteHNO ID: [id number] Author: RT Mg(R) Service: Radiology Author Type: Drain Technician Type: Progress Notes Filed: 09/29/2020 8:07 AM [...] BY: RT Mg(R) September 29, 2020 8:[facility] Future Appointments Appointment Date:10/11/2022 08:00:00 AM Scheduled Provider:Moise JOY MD Location:[facility] Appointment Type:URO Office Visit Diagnostic Tests Pending * PSA Total 10/08/21 [facility] evaluation + Plan note Future Appointments Appointment Date:01/30/2024 08:30:00 AM Scheduled Provider:Moise JOY MD Location:[facility] Appointment Type:URO Office Visit Diagnostic Tests Pending * PSA Total 01/27/23 [facility] evaluation + Plan note Future Appointments Appointment Date:01/30/2024 08:30:00 AM Scheduled Provider:Moise JOY MD Location:[facility] Appointment Type:URO Office Visit [facility] evaluation noteNo [facility] [employer] Other Evaluation note* Diagnosis Onset Date Resolution Status Abdominal pain acute Abscess acute Anemia acute BPH (benign prostatic hyperplasia) acute Chest pain acute Cold sore acute Constipation acute COPD (chronic obstructive pulmonary disease) acute Hyperglycemia acute Hyperlipidemia acute Weight loss acute [facility] Work Phone: Hisrdct general Narrative - Reported* Type Description Date Medical History History of Chicken Pox/Measles/M umps Medical History follows with Dr. Agustín jaimes for his prostate and kidneys Medical History hyperlipidemia Medical History BPH Medical History insomnia Medical History acid reflux Medical History anxiety Medical History COPD Surgical History Neck and Back 2001 Surgical History Finger 1975 Surgical History tonsillectomy Surgical History adenoidectomy Surgical History TRUS with Biopsy Dr. 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 Pressley 08-07-18 Surgical History Colonoscopy, EGD, Dr. Puente 08/22 Hospitalization History see above [employer] Other Hisxlub general Narrative - Reported* Type Description Date [...] adenoidectomy Surgical History TRUS with Biopsy Dr. 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 Pressley 08-07-18 Hospitalization History see above [employer] Other Hospital course Narrative No data available for this section [facility] Discharge instructions No data available for this section [facility] progress note No data available for this section [facility] Summary Purpose Family History Relationship Condition Age at Onset Recorded Date/T jarrod sister Kidney disorder Unknown brother Cardiovascular disease Unknown father Cardiovascular disease Unknown brother Heart disease Unknown Congestive heart failure Unknown father Unknown Malignant neoplasm Unknown father Malignant neoplasm Unknown grandparent Unknown grandparent Heart disease Unknown Unknown grandparent Malignant neoplasm Unknown mother Unknown son Malignant neoplasm Unknown Advance Directives Advance Directive Response Recorded Date/ Time Advance Directives No June 23 10:45am Reason for Referral Reason appt pt needs cons ult to discuss constipation, change in bowel habits, dark stools Diagnosis 1 Constipation (K59.00 ) Referral Organization [facility] [place] Referring Provider First Name Keith Referring Provider Last Name Prieto Referring Provider Specialty Family Prac tomy Referred Organization [facility] Gastroenterolo gy Referred Provider Keith Puente Referred Address [address],[address] Referred Provider Specialty Gastroentero logy Referral Priority Routine General Notes Jo Ann Helms 03/13/2021 09:01:08 AM > referral sent p2p. pt understands he will be contacted to schedule this appt. Chief Complaint and Reason for Visit Chief Complaint Amb Documentation review labs Reason for Visit Abdominal pain Abscess Anemia BPH (benign prostatic hyperplasia) Chest pain Cold sore Constipation COPD (chronic obstructive pulmonary disease) Hyperglycemia Hyperlipidemia Weight loss Additional Source Comments (unrecognized sect ion and content) No Status Records FoundNo Status Records FoundNo Status Records FoundNo Status Records FoundNo Status Records Found INFORMATION SOURCE (unrecogn ized section and content) DATE CREATED AUTHOR 09/30/2020 [facility] DATE CREATED AUTHOR AUTHOR'S ORGANIZ ATION 05/07/2021 [facility] DATE CREATED AUTHOR AUTHOR'S ORGANIZ ATION 08/27/2021 [facility] DATE CREATED AUTHOR AUTHOR'S ORGANIZ ATION 04/16/2022 [facility] DATE CREATED AUTHOR AUTHOR'S ORGANIZ ATION 05/14/2023 [facility] REASON FOR VISIT (unrecogniz ed section and content) review labssinus congestion/ weaknessreview labsPCR resultstesting questionrefillPATIENT COMPLAINING OF CONSTIPATION AND BLOOD IN STOOLClinical Acute Illnessreview labsrefillClinicalpossible thrushClinicalClinicalClinical / labreview labsClinicalrefillRefillsreview labsClinical Acute Illness Care Team (unrecognized sect ion and content) Team Status: Active Member Role Status Dates Keith Atkinson DO Primary Care Provider Active Team Status: Active Member Role Status Dates Keith Atkinson DO Primary Care Provider Active S tart: September 19, 2023 Sarah Deshpande LPN Attending Provider Active St art: September 19, 2023 Team Status: Active Member Role Status Blake Atkinson DO Primary Care Provide r, Attending Provider Active Start: October 09, 2023 Team Status: Inactive Member Role Status Blake Atkinson DO Primary Care Provide r, Attending Provider Active Start: October 14, 2023 End: October 14, 2023 Goals (unrecognized section and content) Goals may be documented in a n alternate section FOR RECORDS PERTAINING TO PATIENTS WHO ARE [...] BE BASED ON THE PRIMARY CLINICAL RECORDS. [facility]. provides no warranty or guarantee of the accuracy or completeness of information in this document.
== END 2023-10-14 09:05 | disposition home or self-care (01) ==
LOC: RAD 09:05
PROVIDERS: PCP Family Medicine; Visit Provider Family Medicine
DX: R07.9 Chest pain, unspecified (principal)
CPT/HCPCS: 71046

== ENCOUNTER 2023-12-18 12:46 | Outpatient (OUT) | payer MEDICARE, SELFPAY ==
--- OUTSIDE RECORDS SUMMARY | 2023-12-18 12:50 | XMS_ITS | CCD ---
Author Organization [facility] Care Team Providers Care Developmental Training Counselor Name Role Phone Keith Atkinson Unavailable Keith [...] Penicillin; Translations: [penicillin] Drug Allergy hives [facility] (20 sources) Sulfacetamide Drug Allergy [facility] (6 sources) Penicillins; Translations: [penicillins] Drug allergy 4 Hives, Unknown Reaction, hives [facility] (4 sources) Sulfonamides (Antibiotic); Translations: [sulfa drugs] Drug allergy [facility] (1 source) Sulfonamides (Antibiotic) Drug allergy (disorder) [facility] (2 sources) Sulfonamides (Antibiotic) Allergy to substance 4 Unknown Reaction [facility] Medications Current Medications Medication Drug Class(es) Dates Sig (Normalized) Sig (Original) [id number] 200 actuat albuterol 0.09 mg/actuat metered dose inhaler (10 sources) beta2-Adrenergic Agonist Start: 09-26-2023 Albuterol Sulfate [...] week(s), # 56 tab(s), Refills(s) 0, Pharmacy: [facility]/pharmacy #[id number], 177, cm, 01/27/23 11:11:00 EST, Height/Length [...] Active docusate sodium 50 mg / sennosides, skilled nursing 8.6 mg oral tablet (3 sources) Start: [...] sources) 5-alpha Reductase Inhibitor Start: 08-21-2021 take 5 mg by mouth once daily Finasteride Active 5 MG PO Daily August 21, 2021 12:00am Fish Oils (3 sources) Start: 01-10-2017 take [...] Status: Ordered mecobalamin 1 mg chewable tablet (2 sources) Start: 09-26-2023 take 1 tablet by mouth [...] day for 10 day(s) July, Active nystatin [id number] unt/ml oral suspension (10 sources) Polyene Antifungal Start: 05-20-2022 Nystatin 090500 UNIT/ML 5 ml (2.5 ml each side of the mouth) Mouth/Throat qid for 7 days Apr, Active Start: 05-20-2022 Nystatin 46128 0 UNIT/ML 5 ml (2.5 ml each [...] Orally tid for 30 day(s) Jun, Active ubidecarenone 30 mg oral capsule (2 sources) Start: 08-21-2021 Coenzyme Q10 ( Co Q-10) 30 mg Capsule Active 30 MG PO Daily August 21, 2021 12:00am valACYclovir 500 mg oral tablet (20 sources) Herpesvirus Nucleoside Analog DNA Polymerase Inhibitor, Herpes Simplex Virus Nucleoside Analog DNA Polymerase Inhibitor, Herpes Zoster Virus Nucleoside Analog DNA Polymerase Inhibitor Start: 11-19-2023 take 1 tablet by mouth once daily Valacyclovir (Valtrex) 500 mg tablet Active 500 MG PO Daily 90 90 November 19, 2023 1:57pm Start: 11-17-2023 End: 08-28-2024 take 1 tablet by mouth three times daily Valacyclovir (Valtrex) 500 mg tablet Discontinued 500 MG PO Three times daily 90 10 November 17, 2023 12:00am November 19, 2023 1:57pm Start: 01-10-2017 take 500 mg by mouth once kortney y Valtrex 500 mg, Oral, Daily, herpes virus [...] FOOD Start: 03-04-2019 take 1 capsule by mo [facility] once daily venlafaxine 75 mg Cap-ER 75 [...] sources) Start: 09-07-2020 take 1 tablet by [facility] once daily Vitamin B12 1000 MCG 1 tablet Orally qd x6 days a week Aug, Active Start: 09-07-2020 take 1 tablet by mouth once da mely Vitamin B12 1000 MCG 1 tablet Orally Once a day Aug, Active Completed/Discontinued Medications Medication Drug Class(es) Dates Sig (Normalized) Sig (Original) bisacodyl 5 mg delayed release oral tablet (18 sources) Stimulant Laxative Start: 09-26-2023 End: 10-14-2023 [...] Start: 08-02-2021 take 2 tablets by mo [facility] once daily as needed Dulcolax 5 MG [...] BID, # 60 cap(s), Refills(s) 0, Pharmacy: [facility]/pharmacy #[id number] Start Date: 03/30/19 Status: Ordered pantoprazole 40 mg delayed release oral tablet (16 sources) Proton Pump Inhibitor Start: 08-02-2021 End: 10-14-2023 take 40 mg by mouth once daily Pantoprazole Discontinued 40 MG PO Daily August 21, 2021 12:00am October 14, 2023 8:18am 60 actuat tiotropium 0.0025 mg/actuat inhalation spray (20 sources) Anticholinergic Start: 09-26-2023 End: 12-17-2023 take 1 puff(s) by inhalation once daily Tiotropium [place] (Spiriva Respimat) 2.5 mcg/actuation mist Discontinued 2 PUFF INHALATION Daily September 26, 2023 12:00am December 17, 2023 2:22pm Start: 07-30-2019 take 2 puff(s) by in halation once daily Spiriva Respimat 2.5 MCG/ACT 2 puffs Inhalation Once a day quantity sufficient for 90 days July, Active Start: 07-30-2019 take 2 puff(s) by in halation once daily Spiriva Respimat 2.5 MCG/ACT 2 puffs Inhalation Once a day quantity sufficient for 90 days July, Active Problems Active Problems Problem Classification Problem Date [...] disease, unspecified] Onset: 03-13-2021 Resolved: 09-13-2021 Chronic Conditions associated with dizziness or vertigo (2 sources) Vertigo; Translations: [Dizziness and giddiness] 12-17-2023 Episodic Deficiency and other anemia (8 sources) Anemia, unspecified; Translations: [Anemia, unspecified] Onset: 03-13-2021 Resolved: 09-13-2021 Episodic Deficiency and other anemia (2 sources) Anemia; Translations: [Anemia, unspecified] 10-14-2023 Episodic Diabetes mellitus without complication (10 sources) Hyperglycemia, unspecified; Translations: [Hyperglycemia] Onset: 03-13-2021 [...] sources) Candidal stomatitis Episodic Nonspecific chest pain (5 sources) Chest pain, unspecified; Translations: [Chest pain] Episodic Other aftercare (6 sources) 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; Translations: [OTH [facility] CURRENT DRUG THERAPY] Onset: 03-13-2021 Resolved: 09-13-2021 [...] [Constipation, unspecified] 08-22-2021 Episodic Other gastrointestinal disorders (6 sources) Constipation, unspecified; Translations: [Constipation, unspecified] Onset: 03-13-2021 Resolved: 09-13-2021 Episodic Other gastrointestinal disorders (3 sources) Dysphagia 03-29-2019 Episodic Other lower respiratory disease (2 sources) Shortness of breath Episodic Other nutritional; endocrine; and metabolic disorders (3 sources) Abnormal weight gain Onset: 03-13-2021 Resolved: 03-13-2021 Episodic Other nutritional; endocrine; and metabolic disorders (3 sources) Abnormal weight loss; Translations: [Loss of weight] Episodic Other nutritional; endocrine; and metabolic disorders (2 sources) Weight loss; Translations: [Abnormal weight loss] 07-23-2024 Episodic Other screening for suspected conditions (not mental disorders or infectious disease) (10 sources) Abnormal results of thyroid function studies; Translations: [Abnormal blood-gas level] Onset: 03-13-2021 Resolved: 09-13-2021 Episodic Residual codes; unclassified (5 sources) Other amnesia; Translations: [Memory loss] Onset: 03-13-2021 Resolved: 09-13-2021 Episodic Residual codes; unclassified (2 sources) Insomnia; Translations: [Insomnia, unspecified] 09-26-2023 Episodic Residual codes; unclassified (2 sources) Memory impairment; Translations: [Other amnesia] 10-14-2023 Episodic Screening and history of mental health and substance abuse codes (3 sources) Ex-smoker 03-29-2019 Episodic Skin and subcutaneous tissue infections (4 sources) Abscess; Translations: [Cutaneous abscess, unspecified] 10-14-2023 Episodic Spondylosis; intervertebral disc disorders; other back problems (20 sources) Degeneration of lumbar intervertebral disc; Translations: [Other intervertebral disc degeneration, lumbar region] Chronic Unclassified (3 sources) Patient encounter status 03-29-2019 Viral infection (6 sources) Herpesviral vesicular dermatitis; 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] [...] Basophils (Bld) [#/Vol] 0.0 10 3/uL 0.0-0.1 [facility] Basophils/100 WBC Auto (Bld) on 10-09-2023 Basophils/100 WBC (Bld) 0.4 % 0.2-2.0 [facility] Cholesterol in LDL Calc [Mas s/Vol]on 10-09-2023 Cholesterol in LDL [Mass/Vol] 111.0 mg/dL [facility] Comment on above: <100 mg/dl [id number] 0-129 mg/dl NEAR OR ABOVE [id number] mg/dl BORDERLINE THSD505-214 mg/dl HIGH>190 mg/dl VERY HIGH Cholesterol in VLDL Calc [Ma ss/Vol]on 10-09-2023 Cholesterol in VLDL [Mass/Vol] 18.8 mg/dL [facility] Eosinophils/100 WBC Auto (Bl d)on 10-09-2023 Eosinophils/100 WBC (Bld) 1.1 % 0.9-7.0 [facility] Erythrocyte distribution wid th Auto (RBC) [Ratio]on 10-09-2023 Erythrocyte distribution width (RBC) [Ratio] 13.1 % 11.0-15.0 [facility] Estimated glomerular filtrat ion rate (GFR) non- Americanon 10-09-2023 GFR/1.73 sq M.predicted among non-blacks MDRD (S/P/Bld) [Vol rate/Area] mL/min/{1.73_m2} >=60 [facility] Globulin Calc (S) [Mass/Vol] on 10-09-2023 Globulin (S) [Mass/Vol] 3.7 g/dL [facility] Glucose mean value [Mass/vol ume] in Blood Estimated from glycated hemoglobinon 10-09-2023 Average glucose Estimated from glycated hemoglobin (Bld) [Mass/Vol] 108 mg/dL [facility] Hematocrit Auto (Bld) [Volum e fraction]on 10-09-2023 Hematocrit (Bld) [Volume fraction] 42.4 % 42.0-54.0 [facility] Hemoglobin [Mass/volume] in Bloodon 10-09-2023 Hemoglobin (Bld) [Mass/Vol] 13.7 g/dL Low 14.0-18.0 [facility] Laboratory - Chemistry and C hemistry - challengeon 10-09-2023 Albumin [Mass/Vol] 3.6 g/dL 3.4-5.0 [facility] ALP [Catalytic activity/Vol] 63 U/L 46-116 [facility] ALT [Catalytic activity/Vol] 31 U/L 16-63 [facility] AST [Catalytic activity/Vol] 24 U/L 15-37 [facility] Bilirubin [Mass/Vol] 0.7 mg/dL 0.2-1.0 [facility] Calcium [Mass/Vol] 9.1 mg/dL 8.5-10.1 [facility] Chloride [Moles/Vol] 103 mmol/L 98-107 [facility] Cholesterol [Mass/Vol] 192 mg/dL <=200 [facility] Cholesterol in HDL [Mass/Vol] 63 mg/dL High 40-60 [facility] Comment on above: > or =60 mg/dl - LOW CARDIOVASCULAR RISK<40 mg/dl - HIGH CARDIOVASCULAR RISK CO2 [Moles/Vol] 28.9 mmol/L 21.0-32.0 [facility] Cobalamin (Vitamin B12) [Mass/Vol] 761.0 pg/mL 193.0-986.0 [facility] Creatinine [Mass/Vol] 0.79 mg/dL 0.70-1.30 [facility] GFR/1.73 sq M.predicted MDRD (S/P/Bld) [Vol rate/Area] mL/min/{1.73_m2} >=60 [facility] Glucose [Mass/Vol] 104 mg/dL 74-106 [facility] Potassium [Moles/Vol] 4.5 mmol/L 3.5-5.1 [facility] Protein [Mass/Vol] 7.3 g/dL 6.4-8.2 [facility] Sodium [Moles/Vol] 138 mmol/L 136-145 [facility] Triglyceride [Mass/Vol] 94 mg/dL <=150 [facility] TSH Qn 1.603 m[IU]/L 0.358-3.740 [facility] Urea nitrogen [Mass/Vol] 15.0 mg/dL 7.0-18.0 [facility] Urea nitrogen/Creatinine [Mass ratio] 19.0 mg/mg [facility] Laboratory - Hematology and Cell countson 10-09-2023 HbA1c (Bld) [Mass fraction] 5.4 % 4.5-6.2 [facility] Comment on above: ADA RECOMMENDED LIMI T 4.0 - 6.0ADA THERAPEUTIC TARGET < 7.0ACTION SUGGESTED> 7.0 Immature granulocytes/100 WBC (Bld) 0.3 % 0.0-0.5 [facility] Leukocytes [#/volume] correc greg for nucleated erythrocytes in Blood by Automated counon 10-09-2023 WBC corrected for nucl RBC Auto (Bld) [#/Vol] 7.9 10 3/uL 4.0-11.0 [facility] Lymphocytes Auto (Bld) [#/Vo l]on 10-09-2023 Lymphocytes (Bld) [#/Vol] 2.1 10 3/uL 1.2-3.8 [facility] Lymphocytes/100 WBC Auto (Bl d)on 10-09-2023 Lymphocytes/100 WBC (Bld) 25.9 % 20.5-60.0 [facility] MCH Auto (RBC) [Entitic mass ]on 10-09-2023 MCH (RBC) [Entitic mass] 31.4 pg 25.9-34.0 [facility] MCHC Auto (RBC) [Mass/Vol]on 10-09-2023 MCHC (RBC) [Mass/Vol] 32.3 g/dL 29.9-35.2 [facility] MCV Auto (RBC) [Entitic vol] on 10-09-2023 MCV (RBC) [Entitic vol] 97.0 fL High 80.0-94.0 [facility] Monocytes Auto (Bld) [#/Vol] on 10-09-2023 Monocytes (Bld) [#/Vol] 0.7 10 3/uL 0.3-0.8 [facility] Monocytes/100 WBC Auto (Bld) on 10-09-2023 Monocytes/100 WBC (Bld) 9.1 % 1.7-12.0 [facility] Neutrophils Auto (Bld) [#/Vo l]on 10-09-2023 Neutrophils (Bld) [#/Vol] 5.0 10 3/uL 1.4-6.5 [facility] Neutrophils/100 WBC Auto (Bl d)on 10-09-2023 Neutrophils/100 WBC (Bld) 63.2 % 43.0-75.0 [facility] No Panel Informationon 10-08 Eosinophils # (Auto) 0.1 10 3/uL 0.0-0.7 [facility] Folate 10.90 ng/mL 8.60-58.90 [facility] Immature Granulocyte # (Auto) 0.02 10 3/uL 0.00-0.03 [facility] Platelet mean volume Auto (B ld) [Entitic vol]on 10-09-2023 Platelet mean volume (Bld) [Entitic vol] 9.1 fL Low 9.5-13.5 [facility] Platelets Auto (Bld) [#/Vol] on 10-09-2023 Platelets (Bld) [#/Vol] 234 10 3/uL 150-450 [facility] RBC Auto (Bld) [#/Vol]on RBC (Bld) [#/Vol] 4.37 10 6/uL Low 4.70-6.10 [facility] Serum or plasma albumin/glob ulin mass ratioon 10-09-2023 Albumin/Globulin [Mass ratio] 1.0 {ratio} [facility] Serum or plasma anion gap de terminationon 10-09-2023 Anion gap [Moles/Vol] 10.6 mmol/L [facility] Serum or plasma total choles terol/high density lipoprotein (HDL) cholesterol mass melly 10-09-2023 Cholesterol.total/Ch olesterol in HDL [Mass ratio] 3.0 {ratio} [facility] Comment on above: 3.3 - 4.4 [...] In 1 year [facility] [address], [place] [address]- Additional Instructions: w/PSA Patient Education ILynette , personally scribed for Dr. Joy on 01/27/2023 11:58:09. . Documentation recorded by the scribeLynette, accurately reflects the services(s) I performed and [...] 24 m (more content not included)... Normal [facility] Comment on above: Result Comment: Elec tronically Signed By: DAVE SELF, Moise Bills\.br\Date and Time Signed: 01/27/23 11:59 EST\.br\Electronically Co-Signed By: Lynette Rasmussen.br\Date and Time Co-Signed: 01/27/23 11:58 EST Prostate Histology ([facility]) on 01-20-2023 Prostate Histology Diagnosis Info Invalid Interpretation Code [facility] Comment on above: Result Comment: A:Pr ostate,Left Lateral Base:Needle Biopsy Interpretation - - Benign prostatic tissue. MicroScopic Description - B:Prostate,Left Lateral Mid:Needle Biopsy Interpretation - - Benign prostatic tissue. MicroScopic Description - C:Prostate,Left Lateral [place]:Needle Biopsy Interpretation - - Benign prostatic tissue. MicroScopic Description - D:Prostate,Left Base:Needle Biopsy Interpretation - - Benign prostatic tissue. MicroScopic Description - E:Prostate,Left Mid:Needle Biopsy Interpretation - - Benign prostatic tissue. MicroScopic Description - F:Prostate,Left [place]:Needle Biopsy Interpretation - - Benign prostatic tissue. MicroScopic Description - G:Prostate,Right Base:Needle Biopsy Interpretation - - Benign prostatic tissue. MicroScopic Description - H:Prostate,Right Mid:Needle Biopsy Interpretation - - Benign prostatic tissue. MicroScopic Description - I:Prostate,Right [place]:Needle Biopsy Interpretation - - Benign prostatic tissue with patchy chronic inflammation. MicroScopic Description - J:Prostate,Right Lateral Base:Needle Biopsy Interpretation - - Benign prostatic tissue. MicroScopic Description - K:Prostate,Right Lateral Mid:Needle Biopsy Interpretation - - Benign prostatic tissue with patchy chronic inflammation. MicroScopic Description - L:Prostate,Right Lateral [place]:Needle Biopsy Interpretation - - Benign prostatic tissue. [...] cores 1 units cm stringy CPT code: 51100 x 12 Electronically signed by : on: 01/20/2023 12:00:15 Performed By: #### 1 [id number] ####[facility] [address] [place] [address] Consent for Procedure/Surger yon 01-14-2023 Consent for Procedure/Surgery [id number]# 1.00TIFF Normal [facility] Consent for Treatmenton 12-23 Consent for Treatment [id number]#[address] [facility] IntraOperative Documentson 1 IntraOperative Documents [id number]# 1.00TIFF [facility] Main OR Intraoperative Recor don 01-14-2023 Main OR Intraoperative Record IntraOp Document Type FTURO Summary Primary Physician: Moise JOY MD Finalized Date/Time: 01/14/23 10:46:07 Pt. Name: JB VAIL D.O.B./Sex: 1945 Male Med Rec #: [id number] Physician: Moise JOY MD Financial #: [id number] Pt. Type: O Room/Bed: / Admit/Disch: 01/14/23 09:16:22 - Institution: Case Times FTURO Entry 1 Patient Times In Room 01/14/23 10:16:00 Out Room 01/14/23 10:37:00 Procedure Times Start 01/14/23 10:20:00 Stop 01/14/23 10:32:00 Anesthesia Times Last Modified By: ANDRADE Duque RN, Ruthann 01/14/23 10:32:45 Case Attendance FTURO Entry 1 Entry 2 Entry 3 Case Attendee DAVE SELF, Moise Duque RN, COLTONOR, Jorge Lockhart Role Performed Surgeon - Primary Cloth Checker - Primary Scrub - Primary Time In 01/14/23 10:16:00 01/14/23 10:16:00 01/14/23 10:16:00 Time Out 01/14/23 10:37:00 01/14/23 10:37:00 01/14/23 10:37:00 Procedure PROSTATE TRANSRECTAL PROSTATE TRANSRECTAL PROSTATE TRANSRECTAL ULTRASOUND WITH BIO(.) ULTRASOUND WITH BIO(.) ULTRASOUND WITH BIO(.) Comments Last Modified By: Dunia RAMOS, COLTONOR, ANDRADE Duque RN, ANDRADE Duque RN, Ruthann 01/14/23 Calli 01/14/23 Calli 01/14/23 10:32:46 [...] Position Verified Availability Equipment, Medication Time Out DAVE SELF, Moise Bills, Verified (If Participants ANDRADE [...] ANDRADE Duque RN, Ruthann 01/14/23 10:46 Normal [facility] Main OR Preoperative Recordo n 01-14-2023 Main OR Preoperative Record Holding Area Document Type FTURO Summary Primary Physician: Moise JOY MD Finalized Date/Time: 01/14/23 10:20:23 Pt. Name: JB VAIL /Sex: 1945 Male Med Rec #: [id number] Physician: Moise JOY MD Financial #: [id number] Pt. Type: O Room/Bed: / Admit/Disch: 01/14/23 [...] of Pain: No Skin Integrity Dry, Warm, [place] Vitals - EU Blood Pressure 127/69 Pulse 70 bpm Respirations 18 br/min SPO2 Additional None RN Reviewed Yes Specimens Collected Last Modified By: ANDRADE Duque RN, Ruthann 01/14/23 10:20:21 General Comments: 97.2 Finalized By: ANDRADE Duque RN, Ruthann Document Signatures Signed By: Rebecca Glez RN 01/14/23 09:44 ANDRADE Duque RN, Ruthann 01/14/23 10:20 Normal [facility] Operative Reporton 3 Operative Report Patient: JB [...] were sent to pathology for evaluation. Normal [facility] Comment on above: Result Comment: Elec tronically [...] for your post-operative appointment in 1-2 weeks [phone] or [phone] Normal [facility] Prostate Histology ([facility]) on 01-14-2023 PH Method of Extraction Needle Biopsy Normal [facility] Comment on above: Performed By: #### 1 [id number] ####[facility] [address] [place] [address] PH Number of Jars 2 Invalid Interpretation Code [facility] Comment on above: Performed By: #### 1 [id number] ####[facility] [address] [place] [address] PH Specimen 1 L Apx Prostate Normal [facility] Comment on above: Performed By: #### 1 [id number] ####[facility] [address] [place] [address] PH Specimen 10 R Lat Bse Prost Normal [facility] Comment on above: Performed By: #### 1 [id number] ####[facility] [address] [place] [address] PH Specimen 11 R Mid Prostate Normal [facility] Comment on above: Performed By: #### 1 [id number] ####[facility] [address] [place] [address] PH Specimen 12 R Lat Mid Prost Normal [facility] Comment on above: Performed By: #### 1 [id number] ####[facility] [address] [place] [address] PH Specimen 2 L Base Prostate Normal [facility] Comment on above: Performed By: #### 1 [id number] ####[facility] [address] [place] [address] PH Specimen 3 L Lat Apx Prost Normal [facility] Comment on above: Performed By: #### 1 [id number] ####[facility] [address] [place] [address] PH Specimen 4 L Lat Bse Prost Normal [facility] Comment on above: Performed By: #### 1 [id number] ####[facility] [address] [place] [address] PH Specimen 5 L Lat Mid Prost Normal [facility] Comment on above: Performed By: #### 1 [id number] ####[facility] [address] [place] [address] PH Specimen 6 L Mid Prost 1 Normal [facility] Comment on above: Performed By: #### 1 [id number] ####[facility] [address] [place] [address] PH Specimen 7 R Apx Prostate Normal [facility] Comment on above: Performed By: #### 1 [id number] ####[facility] [address] [place] [address] PH Specimen 8 R Base Prostate Normal [facility] Comment on above: Performed By: #### 1 [id number] ####[facility] [address] [place] [address] PH Specimen 9 R Lat Apx Prost Normal [facility] Comment on above: Performed By: #### 1 [id number] ####[facility] [address] [place] [address] PH Type of Service Technical Only Normal [facility] Comment on above: Performed By: #### 1 [id number] ####[facility] [address] [place] [address] Insurance Correspondenceon 1 Insurance Correspondence [id number]# 1.00TIFF Normal [facility] Patient Letter FTon 2022 Patient Letter FT December 13, 2022 JB VAIL [address] [place] [phone] : 1945 Dear Mr. Jb Vail, This letter is being sent [...] Moise Joy M.D., F.A.C.S. [facility] [address] [place] [address] [place], [place] [address] , option #3 Normal [facility] Ambulatory Visit Summaryon 0 10-11-2022 Ambulatory Visit [...] Schedule the Following Appointments Follow Up with Moise JOY MD, URSally When: Where: [facility] [address] , [place] [address]- Medications What How Much When Instructions Unchanged [...] bowel syndrome) Screening for colon cancer Normal [facility] Insurance Correspondenceon 0 10-11-2022 Insurance Correspondence [id number]# 1.00CD:127 Normal [facility] Patient Educationon 10-12-19 Patient Education Oncology Prostate [...] Where to find more information ? The [place] [employer]: www.cancer.org ? [place] [employer]: www.auanet.org Contact a health care [...] adds flu (more content not included)... Normal [facility] Urology Office/Clinic Noteon 10-11-2022 Urology Office/Clinic Note [...] [facility] [address], [place] [address]- Additional Instructions: Patient Education Prostate Cancer Screening [...] (Hives) Soci (more content not included)... Normal [facility] Comment on above: Result Comment: Elec tronically Signed By: Moise JOY MD\.br\Date and Time Signed: 10/11/22 08:36 EDT\.br\Electronically Co-Signed By: Lynette Rasmussen.br\Date and Time Co-Signed: 10/11/22 08:32 EDT Lab Reportson 10-07-2022 Lab Reports [id number] .00CD:127 Normal [facility] Lab Reports [id number]#1 .00CD:127 Normal [facility] CBC AUTO DIFFon 03-25-2022 BASO # 0.0 103/ul Normal 0.0-0.1 [facility] Comment on above: Performed By: #### L IPID, CMP, TSH #### [facility] [address] [address] [address] Peewee Russell Basophils/100 WBC (Bld) 0.3 % Normal 0.2-2.0 [facility] Comment on above: Performed By: #### L IPID, CMP, TSH #### [facility] [address] [address] [address] Peewee Russell EO # 0.1 103/ul Normal 0.0-0.7 [facility] Comment on above: Performed By: #### L IPID, CMP, TSH #### [facility] [address] [address] [address] Peewee Russell Eosinophils/100 WBC (Bld) 1.3 % Normal 0.9-7.0 [facility] Comment on above: Performed By: #### L IPID, CMP, TSH #### [facility] [address] [place] [address] Dr. Peewee Russell Erythrocyte distribution width (RBC) [Ratio] 12.4 % Normal 11.0-15.0 [facility] Comment on above: Performed By: #### L IPID, CMP, TSH #### [facility] [address] [place] [address] Dr. Peewee Russell Hematocrit (Bld) [Volume fraction] 43.2 % Normal 42.0-54.0 [facility] Comment on above: Performed By: #### L IPID, CMP, TSH #### [facility] [address] [place] [address] Dr. Peewee Russell Hemoglobin (Bld) [Mass/Vol] 14.3 g/dL Normal 14.0-18.0 [facility] Comment on above: Performed By: #### L IPID, CMP, TSH #### [facility] [address] [place] [address] Dr. Peewee Russell IG # 0.02 10e3/ul Normal 0.00-0.03 [facility] Comment on above: Performed By: #### L IPID, CMP, TSH #### [facility] [address] [place] [address] Dr. Peewee Russell IG % 0.3 % Normal 0.0-0.5 [facility] Comment on above: Performed By: #### L IPID, CMP, TSH #### [facility] [address] [place] [address] Dr. Peewee Russell LYMPH # 2.4 103/ul Normal 1.2-3.8 [facility] Comment on above: Performed By: #### L IPID, CMP, TSH #### [facility] [address] [place] [address] Dr. Peewee Russell Lymphocytes/100 WBC (Bld) 30.0 % Normal 20.5-60.0 [facility] Comment on above: Performed By: #### L IPID, CMP, TSH #### [facility] [address] [address] [address] Peewee Russell MANUAL DIFF REQ NO Normal [facility] Comment on above: Performed By: #### L IPID, CMP, TSH #### [facility] [address] [place] [address] Dr. Peewee Russell MCH (RBC) [Entitic mass] 31.0 pg Normal 25.9-34.0 [facility] Comment on above: Performed By: #### L IPID, CMP, TSH #### [facility] [address] [place] [address] Dr. Peewee Russell MCHC (RBC) [Mass/Vol] 33.1 g/dL Normal 29.9-35.2 [facility] Comment on above: Performed By: #### L IPID, CMP, TSH #### [facility] [address] [place] [address] Dr. Peewee Russell MCV (RBC) [Entitic vol] 93.7 fL Normal 80.0-94.0 [facility] Comment on above: Performed By: #### L IPID, CMP, TSH #### [facility] [address] [place] [address] Dr. Peewee Russell MONO # 0.7 103/ul Normal 0.3-0.8 [facility] Comment on above: Performed By: #### L IPID, CMP, TSH #### [facility] [address] [place] [address] Dr. Peewee Russell Monocytes/100 WBC (Bld) 8.4 % Normal 1.7-12.0 [facility] Comment on above: Performed By: #### L IPID, CMP, TSH #### [facility] [address] [place] [address] Dr. Peewee Russell NEUT # 4.7 103/ul Normal 1.4-6.5 [facility] Comment on above: Performed By: #### L IPID, CMP, TSH #### [facility] [address] [place] [address] Dr. Peewee Russell Neutrophils/100 WBC (Bld) 59.7 % Normal 43.0-75.0 [facility] Comment on above: Performed By: #### L IPID, CMP, TSH #### [facility] [address] [address] [address] Peewee Russell Platelet mean volume (Bld) [Entitic vol] 8.4 fL Critically low 9.5-13.5 [facility] Comment on above: Performed By: #### L IPID, CMP, TSH #### [facility] [address] [address] [address] Peewee Russell PLT 208 103/ul Normal 150-450 [facility] Comment on above: Performed By: #### L IPID, CMP, TSH #### [facility] [address] [address] [address] Peewee Russell RBC 4.61 106/ul Critically low 4.70-6.10 [facility] Comment on above: Performed By: #### L IPID, CMP, TSH #### [facility] [address] [address] [address] Peewee Russell WBC 7.9 103/ul Normal 4.0-11.0 [facility] Comment on above: Performed By: #### L IPID, CMP, TSH #### [facility] [address] [place] [address] Dr. Peewee Russell GLYCOHEMOGLOBIN A1Con 2022 ADA RECOMMENDATION SEE BELOW Normal [facility] Comment on above: Result Comment: ADA RECOMMENDED LIMIT 4.0 - 6.0 ADA THERAPEUTIC TARGET < 7.0 ACTION SUGGESTED > 7.0 Performed By: #### L IPID, CMP, TSH #### [facility] [address] [place] [address] Dr. Peewee Russell Glucose [Mass/Vol] 108 mg/dL Normal [facility] Comment on above: Performed By: #### L IPID, CMP, TSH #### [facility] [address] [address] [address] Peewee Russell HbA1c (Bld) [Mass fraction] 5.4 % Normal 4.5-6.2 [facility] Comment on above: Performed By: #### L IPID, CMP, TSH #### [facility] [address] [address] [address] Peewee Russell LIPID PROFILEon 03-25-2022 CHOL-HDL RATIO NORM SEE BELOW Normal [facility] Comment on above: Result Comment: 3.3 - 4.4 LOW RISK 4.4 - 7.1 AVERAGE RISK 7.1 - 11.0 MODERATE RISK >11.0 HIGH RISK Performed By: #### L IPID, CMP, TSH #### [facility] [address] [address] [address] Peewee Russell Cholesterol [Mass/Vol] 188 mg/dL Normal <=200 [facility] Comment on above: Performed By: #### L IPID, CMP, TSH #### [facility] [address] [place] [address] Dr. Peewee Russell Cholesterol in HDL [Mass/Vol] 65 mg/dL Critically high 40-60 [facility] Comment on above: Performed By: #### L IPID, CMP, TSH #### [facility] [address] [address] [address] Peewee Russell Cholesterol in LDL [Mass/Vol] 107.6 mg/dL Normal [facility] Comment on above: Performed By: #### L IPID, CMP, TSH #### [facility] [address] [address] [address] Peewee Russell Cholesterol.total/Ch olesterol in HDL [Mass ratio] 2.9 {ratio} Normal [facility] Comment on above: Performed By: #### L IPID, CMP, TSH #### [facility] [address] [place] [address] Dr. Peewee Russell HDL NORMAL > or = 60 mg/dl - LO W CARDIOVASCULAR RISK <40 mg/dl - HIGH CARDIOVASCULAR RISK Normal [facility] Comment on above: Performed By: #### L IPID, CMP, TSH #### [facility] [address] [place] [address] Dr. Peewee Russell LDL CALC NORMAL SEE BELOW Normal [facility] Comment on above: Result Comment: <100 mg/dl OPTIMAL 100 - 129 mg/dl NEAR OR ABOVE OPTIMAL 130 - 159 mg/dl BORDERLINE HIGH 160 - 189 mg/dl HIGH >190 mg/dl VERY HIGH Performed By: #### L IPID, CMP, TSH #### [facility] [address] [address] [address] Peewee Russell Triglyceride [Mass/Vol] 77 mg/dL Normal <=150 [facility] Comment on above: Performed By: #### L IPID, CMP, TSH #### [facility] [address] [address] [address] Peewee Russell VLDL CALC 15.4 mg/dL Normal [facility] Comment on above: Performed By: #### L IPID, CMP, TSH #### [facility] [address] [address] [address] Peewee Russell PROF 14(COMP METB)on 023 Albumin [Mass/Vol] 3.7 g/dL Normal 3.4-5.[address] [facility] Comment on above: Performed By: #### L IPID, CMP, TSH #### [facility] [address] [address] [address] Peewee Russell Albumin/Globulin [Mass ratio] 1.0 {ratio} Normal [facility] Comment on above: Performed By: #### L IPID, CMP, TSH #### [facility] [address] [place] [address] Dr. Peewee Russell ALP [Catalytic activity/Vol] 68 U/L Normal 46-116 [facility] Comment on above: Performed By: #### L IPID, CMP, TSH #### [facility] [address] [address] [address] Peewee Russell ALT [Catalytic activity/Vol] 19 U/L Normal 16-63 [facility] Comment on above: Performed By: #### L IPID, CMP, TSH #### [facility] [address] [place] [address] Dr. Peewee Russell Anion gap [Moles/Vol] 8.3 mmol/L Normal [facility] Comment on above: Performed By: #### L IPID, CMP, TSH #### [facility] [address] [place] [address] Dr. Peewee Russell AST [Catalytic activity/Vol] 20 U/L Normal 15-37 [facility] Comment on above: Performed By: #### L IPID, CMP, TSH #### [facility] [address] [address] [address] Peewee Russell Bilirubin [Mass/Vol] 0.5 mg/dL Normal 0.2-1.0 [facility] Comment on above: Performed By: #### L IPID, CMP, TSH #### [facility] [address] [address] [address] Peewee Russell Calcium [Mass/Vol] 9.1 mg/dL Normal 8.5-10.[address] [facility] Comment on above: Performed By: #### L IPID, CMP, TSH #### [facility] [address] [place] [address] Dr. Peewee Russell Chloride [Moles/Vol] 103 mmol/L Normal 98-107 [facility] Comment on above: Performed By: #### L IPID, CMP, TSH #### [facility] [address] [place] [address] Dr. Peewee Russell CO2 [Moles/Vol] 32.9 mmol/L Critically high 21.0-32.0 [facility] Comment on above: Performed By: #### L IPID, CMP, TSH #### [facility] [address] [place] [address] Dr. Peewee Russell Creatinine [Mass/Vol] 0.75 mg/dL Normal 0.70-1.30 [facility] Comment on above: Performed By: #### L IPID, CMP, TSH #### [facility] [address] [place] [address] Dr. Peewee Russell EGFR-AF BAHAMIAN >60 Normal >=60 [facility] Comment on above: Performed By: #### L IPID, CMP, TSH #### [facility] [address] [place] [address] Dr. Peewee Russell EGFR-NON AF BAHAMIAN >60 Normal >=60 [facility] Comment on above: Performed By: #### L IPID, CMP, TSH #### [facility] [address] [address] [address] Peewee Russell Globulin (S) [Mass/Vol] 3.6 g/dL Normal [facility] Comment on above: Performed By: #### L IPID, CMP, TSH #### [facility] [address] [address] [address] Peewee Russell Glucose [Mass/Vol] 114 mg/dL Critically high 74-106 [facility] Comment on above: Performed By: #### L IPID, CMP, TSH #### [facility] [address] [address] [address] Peewee Russell Potassium [Moles/Vol] 4.2 mmol/L Normal 3.5-5.1 [facility] Comment on above: Performed By: #### L IPID, CMP, TSH #### [facility] [address] [place] [address] Dr. Peewee Russell Protein [Mass/Vol] 7.3 g/dL Normal 6.4-8.[address] [facility] Comment on above: Performed By: #### L IPID, CMP, TSH #### [facility] [address] [address] [address] Peewee Russell Sodium [Moles/Vol] 140 mmol/L Normal 136-[address] [facility] Comment on above: Performed By: #### L IPID, CMP, TSH #### [facility] [address] [address] [address] Peewee Russell Urea nitrogen [Mass/Vol] 16.0 mg/dL Normal 7.0-18.0 [facility] Comment on above: Performed By: #### L IPID, CMP, TSH #### [facility] [address] [address] [address] Peewee Russell Urea nitrogen/Creatinine [Mass ratio] 21.3 mg/mg Normal [facility] Comment on above: Performed By: #### L IPID, CMP, TSH #### [facility] [address] [address] [address] Peewee Russell TSHon 03-25-2022 TSH 1.754 uIU/mL Normal 0.358-3.740 [facility] Comment on above: Performed By: #### L IPID CMP, TSH #### [facility] [address] [place] [address] Dr. Peewee Russell VIT B12 AND FOLATEon 023 Cobalamin (Vitamin B12) [Mass/Vol] 1002.0 pg/mL Critically high 193.0-986.0 [facility] Comment on above: Performed By: #### L IPID CMP, TSH #### [facility] [address] [place] [address] Dr. Peewee Russell FOLATE 16.00 ng/mL Normal 8.60-58.90 [facility] Comment on above: Performed By: #### L IPID CMP, TSH #### [facility] [address] [place] [address] Dr. Peewee Russell FOLATE ([facility])on 2 Folate 7.8 ng/mL Normal >3.0 [facility] Comment on above: Result Comment: A se rum folate concentration of less than 3.1 ng/mL is considered to represent clinical deficiency. Performed By: #### L IPID CMP, TSH #### [facility] [address] [place] [address] Dr. Peewee Russell CBC AUTO DIFFon 09-10-2021 BASO # 0.0 103/ul Normal 0.0-0.1 [facility] Comment on above: Performed By: #### C BC #### [facility] [address] [place] [address] Dr. Peewee Russell Basophils/100 WBC (Bld) 0.5 % Normal 0.2-2.0 [facility] Comment on above: Performed By: #### C BC #### [facility] [address] [place] [address] Dr. Peewee Russell EO # 0.1 103/ul Normal 0.0-0.7 [facility] Comment on above: Performed By: #### C BC #### [facility] [address] [place] [address] Dr. Peewee Russell Eosinophils/100 WBC (Bld) 1.3 % Normal 0.9-7.0 [facility] Comment on above: Performed By: #### C BC #### [facility] [address] [place] [address] Dr. Peewee Russell Erythrocyte distribution width (RBC) [Ratio] 13.3 % Normal 11.0-15.0 [facility] Comment on above: Performed By: #### C BC #### [facility] [address] [place] [address] Dr. Peewee Russell Hematocrit (Bld) [Volume fraction] 42.1 % Normal 42.0-54.0 [facility] Comment on above: Performed By: #### C BC #### [facility] [address] [place] [address] Dr. Peewee Russell Hemoglobin (Bld) [Mass/Vol] 13.9 g/dL Critically low 14.0-18.0 [facility] Comment on above: Performed By: #### C BC #### [facility] [address] [place] [address] Dr. Peewee Russell IG # 0.03 10e3/ul Normal 0.00-0.03 [facility] Comment on above: Performed By: #### C BC #### [facility] [address] [place] [address] Dr. Peewee Russell IG % 0.4 % Normal 0.0-0.5 [facility] Comment on above: Performed By: #### C BC #### [facility] [address] [place] [address] Dr. Peewee Russell LYMPH # 1.9 103/ul Normal 1.2-3.8 [facility] Comment on above: Performed By: #### C BC #### [facility] [address] [place] [address] Dr. Peewee Russell Lymphocytes/100 WBC (Bld) 23.0 % Normal 20.5-60.0 [facility] Comment on above: Performed By: #### C BC #### [facility] [address] [place] [address] Dr. Peewee Russell MANUAL DIFF REQ NO Normal [facility] Comment on above: Performed By: #### C BC #### [facility] [address] [place] [address] Dr. Peewee Russell MCH (RBC) [Entitic mass] 32.1 pg Normal 25.9-34.0 [facility] Comment on above: Performed By: #### C BC #### [facility] [address] [place] [address] Dr. Peewee Russell MCHC (RBC) [Mass/Vol] 33.0 g/dL Normal 29.9-35.2 [facility] Comment on above: Performed By: #### C BC #### [facility] [address] [place] [address] Dr. Peewee Russell MCV (RBC) [Entitic vol] 97.2 fL Critically high 80.0-94.0 [facility] Comment on above: Performed By: #### C BC #### [facility] [address] [place] [address] Dr. Peewee Russell MONO # 0.6 103/ul Normal 0.3-0.8 [facility] Comment on above: Performed By: #### C BC #### [facility] [address] [place] [address] Dr. Peewee Russell Monocytes/100 WBC (Bld) 7.2 % Normal 1.7-12.0 [facility] Comment on above: Performed By: #### C BC #### [facility] [address] [place] [address] Dr. Peewee Russell NEUT # 5.7 103/ul Normal 1.4-6.5 [facility] Comment on above: Performed By: #### C BC #### [facility] [address] [place] [address] Dr. Peewee Russell Neutrophils/100 WBC (Bld) 67.6 % Normal 43.0-75.0 [facility] Comment on above: Performed By: #### C BC #### [facility] [address] [place] [address] Dr. Peewee Russell Platelet mean volume (Bld) [Entitic vol] 8.9 fL Critically low 9.5-13.5 [facility] Comment on above: Performed By: #### C BC #### [facility] [address] [place] [address] Dr. Peewee Russell PLT 239 103/ul Normal 150-450 [facility] Comment on above: Performed By: #### C BC #### [facility] [address] [address] [address] Peewee Russell RBC 4.33 106/ul Critically low 4.70-6.10 [facility] Comment on above: Performed By: #### C BC #### [facility] [address] [place] [address] Dr. Peewee Russell WBC 8.4 103/ul Normal 4.0-11.0 [facility] Comment on above: Performed By: #### C BC #### [facility] [address] [place] [address] Dr. Peewee Russell GLYCOHEMOGLOBIN A1Con 2021 ADA RECOMMENDATION SEE BELOW Normal [facility] Comment on above: Result Comment: ADA RECOMMENDED LIMIT 4.0 - 6.0 ADA THERAPEUTIC TARGET < 7.0 ACTION SUGGESTED > 7.0 Performed By: #### A 1C #### [facility] [address] [place] [address] Dr. Peewee Russell Glucose [Mass/Vol] 108 mg/dL Normal [facility] Comment on above: Performed By: #### A 1C #### [facility] [address] [place] [address] Dr. Peewee Russell HbA1c (Bld) [Mass fraction] 5.4 % Normal 4.5-6.2 [facility] Comment on above: Performed By: #### A 1C #### [facility] [address] [place] [address] Dr. Peewee Russell LIPID PROFILEon 09-10-2021 CHOL-HDL RATIO NORM SEE BELOW Normal [facility] Comment on above: Result Comment: 3.3 - 4.4 LOW RISK 4.4 - 7.1 AVERAGE RISK 7.1 - 11.0 MODERATE RISK >11.0 HIGH RISK Performed By: #### T SH, LIPID, CMP #### [facility] [address] [address] [address] Peewee Russell Cholesterol [Mass/Vol] 169 mg/dL Normal <=200 [facility] Comment on above: Performed By: #### T SH, LIPID, CMP #### [facility] [address] [address] [address] Peewee Russell Cholesterol in HDL [Mass/Vol] 70 mg/dL Critically high 40-60 [facility] Comment on above: Performed By: #### T SH, LIPID, CMP #### [facility] [address] [address] [address] Peewee Russell Cholesterol in LDL [Mass/Vol] 90.4 mg/dL Normal [facility] Comment on above: Performed By: #### T SH, LIPID, CMP #### [facility] [address] [place] [address] Dr. Peewee Russell Cholesterol.total/Ch olesterol in HDL [Mass ratio] 2.4 {ratio} Normal [facility] Comment on above: Performed By: #### T SH, LIPID, CMP #### [facility] [address] [address] [address] Peewee Russell HDL NORMAL > or = 60 mg/dl - LO W CARDIOVASCULAR RISK <40 mg/dl - HIGH CARDIOVASCULAR RISK Normal [facility] Comment on above: Performed By: #### T SH, LIPID, CMP #### [facility] [address] [address] [address] Peewee Russell LDL CALC NORMAL SEE BELOW Normal [facility] Comment on above: Result Comment: <100 mg/dl OPTIMAL 100 - 129 mg/dl NEAR OR ABOVE OPTIMAL 130 - 159 mg/dl BORDERLINE HIGH 160 - 189 mg/dl HIGH >190 mg/dl VERY HIGH Performed By: #### T SH, LIPID, CMP #### [facility] [address] [address] [address] Peewee Russell Triglyceride [Mass/Vol] 43 mg/dL Normal <=150 [facility] Comment on above: Performed By: #### T SH, LIPID, CMP #### [facility] [address] [address] [address] Peewee Russell VLDL CALC 8.6 mg/dL Normal [facility] Comment on above: Performed By: #### T GEORGES, LIPID, CMP #### [facility] [address] [place] [address] Dr. Peewee Russell PROF 14(COMP METB)on 022 Albumin [Mass/Vol] 3.7 g/dL Normal 3.4-5.[address] [facility] Comment on above: Performed By: #### T GEORGES, LIPID, CMP #### [facility] [address] [place] [address] Dr. Peewee Russell Albumin/Globulin [Mass ratio] 1.0 {ratio} Normal [facility] Comment on above: Performed By: #### T GEORGES LIPID, CMP #### [facility] [address] [place] [address] Dr. Peewee Russell ALP [Catalytic activity/Vol] 65 U/L Normal 46-116 [facility] Comment on above: Performed By: #### T GEORGES, LIPID, CMP #### [facility] [address] [place] [address] Dr. Peewee Russell ALT [Catalytic activity/Vol] 29 U/L Normal 16-63 [facility] Comment on above: Performed By: #### T GEORGES, LIPID, CMP #### [facility] [address] [place] [address] Dr. Peewee Russell Anion gap [Moles/Vol] 9.6 mmol/L Normal [facility] Comment on above: Performed By: #### T GEORGES, LIPID, CMP #### [facility] [address] [place] [address] Dr. Peewee Russell AST [Catalytic activity/Vol] 21 U/L Normal 15-37 [facility] Comment on above: Performed By: #### T GEORGES, LIPID, CMP #### [facility] [address] [place] [address] Dr. Peewee Russell Bilirubin [Mass/Vol] 0.5 mg/dL Normal 0.2-1.0 [facility] Comment on above: Performed By: #### T SH, LIPID, CMP #### [facility] [address] [address] [address] Peewee Russell Calcium [Mass/Vol] 9.0 mg/dL Normal 8.5-10.[address] [facility] Comment on above: Performed By: #### T SH, LIPID, CMP #### [facility] [address] [address] [address] Peewee Russell Chloride [Moles/Vol] 104 mmol/L Normal 98-107 [facility] Comment on above: Performed By: #### T SH, LIPID, CMP #### [facility] [address] [address] [address] Peewee Russell CO2 [Moles/Vol] 31.0 mmol/L Normal 21.0-32.0 [facility] Comment on above: Performed By: #### T SH, LIPID, CMP #### [facility] [address] [place] [address] Dr. Peewee Russell Creatinine [Mass/Vol] 0.75 mg/dL Normal 0.70-1.30 [facility] Comment on above: Performed By: #### T SH, LIPID, CMP #### [facility] [address] [place] [address] Dr. Peewee Russell EGFR-AF BAHAMIAN >60 Normal >=60 [facility] Comment on above: Performed By: #### T SH, LIPID, CMP #### [facility] [address] [place] [address] Dr. Peewee Russell EGFR-NON AF BAHAMIAN >60 Normal >=60 [facility] Comment on above: Performed By: #### T SH, LIPID, CMP #### [facility] [address] [place] [address] Dr. Peewee Russell Globulin (S) [Mass/Vol] 3.6 g/dL Normal [facility] Comment on above: Performed By: #### T SH, LIPID, CMP #### [facility] [address] [place] [address] Dr. Peewee Russell Glucose [Mass/Vol] 110 mg/dL Critically high 74-106 [facility] Comment on above: Performed By: #### T SH, LIPID, CMP #### [facility] [address] [place] [address] Dr. Peewee Russell Potassium [Moles/Vol] 4.6 mmol/L Normal 3.5-5.1 [facility] Comment on above: Performed By: #### T SH, LIPID, CMP #### [facility] [address] [place] [address] Dr. Peewee Russell Protein [Mass/Vol] 7.3 g/dL Normal 6.4-8.[address] [facility] Comment on above: Performed By: #### T SH, LIPID, CMP #### [facility] [address] [place] [address] Dr. Peewee Russell Sodium [Moles/Vol] 140 mmol/L Normal 136-[address] [facility] Comment on above: Performed By: #### T SH, LIPID, CMP #### [facility] [address] [place] [address] Dr. Peewee Russell Urea nitrogen [Mass/Vol] 13.0 mg/dL Normal 7.0-18.0 [facility] Comment on above: Performed By: #### T SH, LIPID, CMP #### [facility] [address] [place] [address] Dr. Peewee Russell Urea nitrogen/Creatinine [Mass ratio] 17.3 mg/mg Normal [facility] Comment on above: Performed By: #### T SH, LIPID, CMP #### [facility] [address] [place] [address] Dr. Peewee Russell TSHon 09-10-2021 TSH 1.463 uIU/mL Normal 0.358-3.740 [facility] Comment on above: Performed By: #### T SH, LIPID, CMP #### [facility] [address] [place] [address] Dr. Peewee Russell VITAMIN B12on 09-10-2021 Cobalamin (Vitamin B12) [Mass/Vol] 620.0 pg/mL Normal 193.0-986.0 [facility] Comment on above: Performed By: #### V ITB12 #### [facility] [address] [place] [address] Dr. Peewee Lynne 08-22-2021 L - -------- Specimen: [id number] Received: 08/22/21 Status: LYNETTE Mckinnon Num: [id number] Spec Type: Surgical Subm Dr: Keith Puente Jr, Tissues: A Duodenum - Biopsy (DUODENUM BX) Procedures: HE Stain/2, Gross/Micro L4 -------- Patient Age/Sex Location Account Attending Physician -------- Jb Vail/[facility] [id number] Keith Puente Jr, -------- SPEC NUM: [id number] RECD: 08/22/21 STATUS: LYNETTE MCKINNON NUM: [id number] VIET: 08/22/21 [facility] DR: Keith Puente Jr, ENTERED: 08/22/[address] [facility] [address]: SPEC TYPE: Surgical DEPT: S REC BY: [id number] ORDERED: HE Stain/2, Gross/Micro L4 ORDERED: HE [...] support the above pathologic diagnosis. CPT Codes 15925 -------- -------- Specimen: [id number] Received: 08/22/21 Status: LYNETTE Ino Num: [id number] Spec Type: Surgical Subm Dr: Keith Puente Jr, DO Tissues: A Duodenum - Biopsy (DUODENUM BX) Procedures: HE Stain/2, Gross/Micro L4 -------- Patient: Jb Vail [id number] (Continued) -------- Signed (signature on file) Vish Alexander MD 08/23/21 1649 Normal [facility] COVID[facility]19 [facility] SARS-CoV-2 (COVID-19) RNA CLARISSE+probe Ql (Unsp spec) Negative Normal Negative [facility] Comment on above: Order Comment: Healt hcare Worker?: N Result Comment: Testing for SARS-CoV-2 by RT-PCR This test was developed and its performance characteristics determined by [employer] and validated at the [facility]. This test has not been FDA [...] is terminated or revoked sooner. PERFORMED BY: [facility] [place] [address] PATHOLOGIST SHELVER MITA PINO M.D. Performed By: #### C OVID 19 [facility] #### [facility] [id number] [facility] CT abdomen pelvis w conon CT abdomen pelvis w con [facility] [address] [place] [address] [place] [address] CT Scan Report Signed Patient: Jb Vail MR#: [id number] : 1945 Acct:[id number] Age/Sex: 75 / M ADM Date: 05/15/21 Loc: ICCT Room: Type: [facility] Attending Dr: Keith Puente DO Ordering Provider: [...] Thompson Jr., M.D.05/15/2021 7:39 PM Dictation Location: [place] [address] Transcribed By: [facility] 05/15/211938 Dictated By: Wilmer Thompson Jr, MD 05/15/21 1626 Signed By: 05/15/211938 Normal [facility] ISTAT XRay CREon 05-15-2021 Creatinine [Mass/Vol] 0.7 mg/dL Normal 0.6-1.3 [facility] Comment on above: Result Comment: ER/E SD physician is notified/shown all ISTAT results. Critical values may be confirmed by laboratory testing if deemed necessary by ER attending doctor. Performed By: #### I SCRE #### [facility] [address] [place] [address] Point of Care testing , ISTAT GFR ( > 60 Normal [facility] Comment on above: Result Comment: GFR estimated reference range: According to KDOQI guidelines, <60 ml/min/1.73m2 is sufficient to diagnose a patient with chronic kidney disease. PERFORMED BY: [place] [address] PATHOLOGIST SHELVER MITA PINO M.D. Performed By: #### I SCRE #### [address] Point of Care testing , ISTAT GFR (Non- Am > 60 [facility] Comment on above: Performed By: #### I SCRE #### [address] Point of Care testing , CNOVon 09-29-2020 CNOV Office Visit (PULMAV ) JB VAIL ([id number]) 1945 M Date Time Provider Department 09/29/20 [...] in the past, he was seeing a [place] gas and oil servicer. He had PFTs, about 2 years. He [...] years before he quit. 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 Normal [facility] XR CHEST 2V FRONTAL/LATon XR CHEST 2V [...] rib fractures. IMPRESSION: NO ACUTE RADIOGRAPHIC ABNORMALITY. 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: PSCB Transcribe Date/Time: Sep 29 2020 9:03A Dictated by : ALY MAHONEY MD This examination was interpreted and the report reviewed and electronically signed by: ALY MAHONEY MD on Sep 29 2020 9:05AM EST [id number] Normal [facility] Vital Signs Date Time Vital Sign Value Performing Clinician Facility 12-17-2023 14:24-0400 Body mass index (BMI) [Ratio] 22.2 kg/m2 [facility] 12-17-2023 14:24-0400 Body temperature 97.5 [degF] [facility] 12-17-2023 14:24-0400 Diastolic blood pressure 84 mm[Hg] [facility] 12-17-2023 14:24-0400 Heart rate 76 /min [facility] 12-17-2023 14:24-0400 Respiratory rate 18 /min [facility] 12-17-2023 14:24-0400 SaO2% (BldA) [Mass fraction] 99 % [facility] 12-17-2023 14:24-0400 Systolic blood pressure 122 mm[Hg] [facility] 12-17-2023 11:58-0400 Body height 177.8 cm [facility] 12-17-2023 11:58-0400 Body weight 70.3 kg [facility] 10-14-2023 08:12-0400 Body height 177.8 cm [facility] 10-14-2023 08:12-0400 Body mass index (BMI) [Ratio] 21.8 kg/m2 [facility] 10-14-2023 08:12-0400 Body temperature 97.3 [degF] [facility] 10-14-2023 08:12-0400 Body weight 68.94 kg [facility] 10-14-2023 08:12-0400 Diastolic blood pressure 76 mm[Hg] [facility] 10-14-2023 08:12-0400 Heart rate 68 /min [facility] 10-14-2023 08:12-0400 SaO2% (BldA) [Mass fraction] 97 % [facility] 10-14-2023 08:12-0400 Systolic blood pressure 126 mm[Hg] [facility] 04-08-2023 08:10-0500 Body height 177.8 cm Keith Atkinson Other [facility] [employer] Other 04-08-2023 08:10-0500 Body mass index (BMI) [Ratio] 23.53 kg/m2 Keith Atkinson Other [employer] Other 04-08-2023 08:10-0500 Body temperature 97.9 [degF] Keith Atkinson Other [employer] Other 04-08-2023 08:10-0500 Body weight 74.39 kg Keith Atkinson Other [facility] [employer] Other 04-08-2023 08:10-0500 Diastolic blood pressure 78 mm[Hg] Keith Atkinson Other [facility] [employer] Other 04-08-2023 08:10-0500 Respiratory rate 18 /min Keith Atkinson Other [employer] Other 04-08-2023 08:10-0500 SaO2% (BldA) [Mass fraction] 98 % Keith Atkinson Other [employer] Other 04-08-2023 08:10-0500 Systolic blood pressure 128 mm[Hg] Keith Atkinson Other [employer] Other 01-27-2023 11:09-0500 Blood Pressure Location Moise Bestowed [facility] 01-27-2023 11:09-0500 Diastolic blood pressure 71 mm[Hg] Moise JOY [facility] 01-27-2023 11:09-0500 Heart rate 70 /min Moise JOY [facility] 01-27-2023 11:09-0500 Respiratory rate 16 /min Moise JOY [facility] 01-27-2023 11:09-0500 Systolic blood pressure 133 mm[Hg] Moise JOY [facility] 10-01-2022 08:10-0400 Body height 177.8 cm Keith Atkinson Other [employer] Other 10-01-2022 08:10-0400 Body mass index (BMI) [Ratio] 21.88 kg/m2 Keith Atkinson Other [employer] Other 10-01-2022 08:10-0400 Body temperature 98.5 [degF] Keith Atkinson Other [employer] Other 10-01-2022 08:10-0400 Body weight 69.17 kg Keith Atkinson Other [employer] Other 10-01-2022 08:10-0400 Diastolic blood pressure 80 mm[Hg] Keith Atkinson Other [employer] Other 10-01-2022 08:10-0400 Respiratory rate 18 /min Keith Atkinson Other [employer] Other 10-01-2022 08:10-0400 SaO2% (BldA) [Mass fraction] 99 % Keith Atkinson Other [employer] Other 10-01-2022 08:10-0400 Systolic blood pressure 124 mm[Hg] Keith Atkinson Other [employer] Other 05-20-2022 09:10-0500 Body height 177.8 cm Keith Atkinson Other [employer] Other 05-20-2022 09:10-0500 Body mass index (BMI) [Ratio] 22.74 kg/m2 Keith Atkinson Other [employer] Other 05-20-2022 09:10-0500 Body temperature 97.5 [degF] Keith Atkinson Other [employer] Other 05-20-2022 09:10-0500 Body weight 71.9 kg Keith Atkinson Other [employer] Other 05-20-2022 09:10-0500 Diastolic blood pressure 84 mm[Hg] Keith Atkinson Other [employer] Other 05-20-2022 09:10-0500 Respiratory rate 18 /min Keith Atkinson Other [employer] Other 05-20-2022 09:10-0500 SaO2% (BldA) [Mass fraction] 98 % Keith Atkinson Other [employer] Other 05-20-2022 09:10-0500 Systolic blood pressure 122 mm[Hg] Keith Atkinson Other [employer] Other 03-28-2022 09:10-0500 Body height 177.8 cm Keith Atkinson Other [employer] Other 03-28-2022 09:10-0500 Body mass index (BMI) [Ratio] 22.67 kg/m2 Keith Atkinson Other [employer] Other 03-28-2022 09:10-0500 Body temperature 98.5 [degF] Keith Atkinson Other [employer] Other 03-28-2022 09:10-0500 Body weight 71.67 kg Keith Atkinson Other [employer] Other 03-28-2022 09:10-0500 Diastolic blood pressure 80 mm[Hg] Keith Atkinson Other [employer] Other 03-28-2022 09:10-0500 Respiratory rate 18 /min Keith Atkinson Other [employer] Other 03-28-2022 09:10-0500 SaO2% (BldA) [Mass fraction] 99 % Keith Atkinson Other [employer] Other 03-28-2022 09:10-0500 Systolic blood pressure 118 mm[Hg] Keith Atkinson Other [employer] Other 10-08-2021 15:01-0400 Blood Pressure Location Moise JOY [facility] 10-08-2021 15:01-0400 Diastolic blood pressure 85 mm[Hg] Moise JOY [facility] 10-08-2021 15:01-0400 Heart rate 72 /min Moise JOY [facility] 10-08-2021 15:01-0400 Systolic blood pressure 146 mm[Hg] Moise JOY [facility] 09-13-2021 09:10-0400 Body height 177.8 cm Keith Atkinson Other [employer] Other 09-13-2021 09:10-0400 Body mass index (BMI) [Ratio] 21.88 kg/m2 Keith Atkinson Other [employer] Other 09-13-2021 09:10-0400 Body temperature 97.2 [degF] Keith Atkinson Other [employer] Other 09-13-2021 09:10-0400 Body weight 69.17 kg Keith Atkinson Other [employer] Other 09-13-2021 09:10-0400 Diastolic blood pressure 26 mm[Hg] Keith Atkinson Other [employer] Other 09-13-2021 09:10-0400 Respiratory rate 18 /min Keith Atkinson Other [employer] Other 09-13-2021 09:10-0400 SaO2% (BldA) [Mass fraction] 98 % Keith Atkinson Other [employer] Other 09-13-2021 09:10-0400 Systolic blood pressure 126 mm[Hg] Keith Atkinson Other [employer] Other 05-09-2021 17:00-0500 Body height 177.8 cm Keith Puente Other [employer] Other 05-09-2021 17:00-0500 Body mass index (BMI) [Ratio] 22.24 kg/m2 Keith Puente Other [employer] Other 05-09-2021 17:00-0500 Body weight 70.31 kg Keith Puente Other [employer] Other 03-13-2021 09:10-0500 Body height 177.8 cm Keith Atkinson Other [employer] Other 03-13-2021 09:10-0500 Body mass index (BMI) [Ratio] 22.67 kg/m2 Keith Atkinson Other [employer] Other 03-13-2021 09:10-0500 Body temperature 97.4 [degF] Keith Atkinson Other [employer] Other 03-13-2021 09:10-0500 Body weight 71.67 kg Keith Atkinson Other [employer] Other 03-13-2021 09:10-0500 Diastolic blood pressure 80 mm[Hg] Keith Atkinson Other [employer] Other 03-13-2021 09:10-0500 Respiratory rate 18 /min Keith Prieto Other [employer] Other 03-13-2021 09:10-0500 SaO2% (BldA) [Mass fraction] 99 % Keith Atkinson Other [employer] Other 03-13-2021 09:10-0500 Systolic blood pressure 124 mm[Hg] Keith Margaritaderek Other [employer] Other Encounters Encounter Date Encounter Type Care Provider Facility Start: 12-17-2023 End: 12-17-2023 ambulatory [facility] Work Phone: Start: 12-17-2023 End: 12-17-2023 Patient encounter procedure [facility] Physician [facility] [place] Work Phone: Start: 10-14-2023 End: 10-14-2023 [facility] Work Phone: Start: 10-14-2023 End: 10-14-2023 Patient encounter procedure [facility] Physician [facility] [place] Work Phone: Start: 10-09-2023 Non-patient / Non-visit [facility] Work Phone: Start: 09-19-2023 Non-patient / Non-visit [facility] Physician [facility] [place] Work Phone: Start: 05-12-2023 End: 05-13-2023 ambulatory Moise JOY Facility: [place] Start: 05-12-2023 End: 05-12-2023 Patient encounter procedure Moise JOY [facility] [place] Start: 04-14-2023 End: 04-14-2023 ambulatory Keith Atkinson Other [employer] Other Start: 04-14-2023 Telephone encounter Keith Atkinson [facility] [place] Start: 04-08-2023 End: 04-08-2023 ambulatory Keith Atkinson Other [employer] Other Start: 04-08-2023 Office outpatient visit 25 minutes Keith Atkinson [facility] [place] Start: 03-10-2023 End: 03-10-2023 ambulatory Keith Atkinson Other [employer] Other Start: 03-10-2023 Telephone encounter Keith Atkinson [facility] [place] Start: 01-27-2023 End: 01-28-2023 ambulatory Moise JOY Facility:[facility] [place] Start: 01-27-2023 End: 01-27-2023 Patient encounter procedure Moise JOY [facility] Start: 01-14-2023 End: 01-15-2023 ambulatory Moise JOY Facility:[facility] Start: 11-28-2022 End: 11-28-2022 ambulatory Keith Atkinson Other [employer] Other Start: 11-28-2022 Telephone encounter Keith Atkinson [facility] [place] Start: 10-11-2022 End: 10-12-2022 ambulatory Moise JOY Facility:[facility] [place] Start: 10-01-2022 End: 10-01-2022 ambulatory Keith Atkinson Other [employer] Other Start: 10-01-2022 Office outpatient visit 25 minutes Keith Atkinson [facility] [place] Start: 09-27-2022 End: 09-27-2022 ambulatory Keith Atkinson Other [employer] Other Start: 09-27-2022 Telephone encounter Keith Atkinson [facility] [place] Start: 06-14-2022 End: 06-14-2022 ambulatory Keith Atkinson Other [employer] Other Start: 06-14-2022 Telephone encounter Keith Atkinson [facility] [place] Start: 05-29-2022 End: 05-29-2022 ambulatory Keith Atkinson Other [employer] Other Start: 05-29-2022 Telephone encounter [facility] Start: 05-20-2022 End: 05-20-2022 ambulatory Keith Atkinson Other [employer] Other Start: 05-20-2022 Office outpatient visit 15 minutes Keith Atkinson [facility] [place] Start: 04-05-2022 End: 04-05-2022 ambulatory Keith Atkinson Other [employer] Other Start: 04-05-2022 Telephone encounter Keith Atkinson [facility] [place] Start: 03-28-2022 End: 03-28-2022 ambulatory Keith Atkinson Other [employer] Other Start: 03-28-2022 Office outpatient visit 25 minutes Keith Atkinson [facility] [place] Start: 03-25-2022 End: 03-26-[address] KEITH ATKINSON Facility:[facility] Start: 10-08-2021 End: 10-08-2021 Patient encounter procedure Moise JOY [facility] Start: 10-04-2021 End: 10-05-[address] MOISE JOY Facility:[facility] Start: 09-13-2021 End: 09-13-2021 ambulatory Keith Atkinson Other [employer] Other Start: 09-13-2021 Office outpatient visit 25 minutes Keith Atkinson [facility] Start: 09-10-2021 End: 06-21-[address] KEITH ATKINSON Facility:[facility] Start: 07-20-2021 End: 07-20-2021 ambulatory Keith Puente Other [employer] Other Start: 07-20-2021 Telephone encounter Keith Puente [facility] Start: 06-04-2021 End: 06-04-2021 ambulatory Keith Atkinson Other [employer] Other Start: 06-04-2021 Telephone encounter Keith Atkinson [facility] [place] Start: 05-09-2021 End: 05-09-2021 ambulatory Keith Puente Other [employer] Other Start: 05-09-2021 Office outpatient visit 25 minutes Keith Puente [facility] Gastro[facility] Start: 04-04-2021 End: 04-04-2021 ambulatory Keith Atkinson Other [employer] Other Start: 04-04-2021 Telephone encounter Keith Atkinson [facility] [place] Start: 03-28-2021 End: 03-28-2021 ambulatory Keith Atkinson Other [employer] Other Start: 03-28-2021 Telephone encounter Keith Atkinson [facility] [place] Start: 03-27-2021 End: 03-27-2021 ambulatory Keith Atkinson Other [employer] Other Start: 03-27-2021 Telephone encounter Keith Atkinson [facility] [place] Start: 03-13-2021 End: 03-13-2021 ambulatory Keith Atkinson Other [employer] Other Start: 03-13-2021 Office outpatient visit 25 minutes Keith Atkinson [facility] [place] Procedures Date Procedure Procedure Detail Performing Clinician Start: 01-14-2023 Transrectal biopsy o f prostate using ultrasound guidance Moise JOY Start: 07-14-[address] KEITH ATKINSON Comment on above: Performed By: #### P SAD #### [facility] [address] [address] [address] Peewee Russell Start: 07-24-2017 right elbow removal of hardware Moise JOY Start: 01-15-2017 Open reduction of fr acture of elbow with internal fixation Moise JOY Comment on above: Right elbow Start: 12-26-2011 Transurethral prostatectomy Moise JOY Start: 11-11-2011 Urodynamic studies Sulmar tanika [...] Activity Detail Author Start: 01-30-2024 ambulatory Ambulatory Facility:[facility] Start: 12-17-2023 Patient referral [facility] Work Phone: Comprehensive metabo lic 2000 panel - Serum or Plasma [facility] Patient referral [facility] Work Phone: XR Chest 2 Views [facility] Immunizations Immunization Date Immunization Notes Care Provider Fa cility 01-20-2023 COVID-19 Vaccine Pfi zer - Documentation Purposes Only Keith Atkinson Other [facility] 01-20-2023 Flu Shot - Documentation Purposes Only Keith Atkinson Other [facility] 10-30-2023 influenza virus vaccine, unspecified formulation Moise JOY [facility] 12-06-2021 influenza virus vaccine, unspecified formulation Moise JOY [facility] 12-06-2021 SARS-CoV-2 (COVID-19 ) [id number] Moise JOY [facility] 12-06-2021 influenza, seasonal, injectable Keith Atkinson Other [facility] 06-29-2021 SARS-CoV-2 (COVID-19 ) mRNA-1273 vaccine Moise JOY [facility] Comment on above: Result Comment: 2022: [id number] 01-23-2021 influenza, seasonal, injectable Keith Atkinson Other [facility] 12-27-2020 influenza virus vaccine, unspecified formulation Moise JOY [facility] 12-27-2020 pneumococcal polysaccharide vaccine, 23 valent Moise JOY [facility] 12-16-2020 COVID-19 Vaccine Moderna - Documentation Purposes Only Keith Atkinson Other [facility] Comment on above: Result Comment: 2022: [id number] 06-14-2020 zoster vaccine recombinant Keith Atkinson Other [facility] 05-30-2020 COVID-19 Vaccine Moderna - Documentation Purposes Only Keith Atkinson Other [facility] 05-01-2020 COVID-19 Vaccine Moderna - Documentation Purposes Only Keith Atkinson Other [facility] 03-21-2020 zoster vaccine recombinant Keith Atkinson Other [facility] 12-23-2019 influenza virus vaccine, unspecified formulation Moise JOY [facility] 12-23-2019 pneumococcal conjuga te vaccine, 13 valent Moise JOY [facility] 12-23-2019 influenza, seasonal, injectable Keith Atkinson Other [facility] 12-23-2019 pneumococcal polysaccharide vaccine, 23 valent Keith Atkinson Other [facility] 12-28-2018 influenza virus vaccine, unspecified formulation Moise JOY [facility] 12-22-2018 influenza virus vaccine, unspecified formulation Moise JOY [facility] 12-22-2017 influenza virus vaccine, unspecified formulation Moise JOY [facility] 12-22-2017 influenza, seasonal, injectable Keith Atkinson Other [facility] 10-05-2017 tetanus toxoid, adsorbed Keith Atkinson Other [facility] 01-20-2017 influenza virus vaccine, unspecified formulation Moise JOY [facility] 01-20-2017 pneumococcal polysaccharide vaccine, 23 valent Keith Atkinson Other [facility] 12-23-2016 influenza virus vaccine, unspecified formulation Moise JOY [facility] 12-23-2016 influenza, seasonal, injectable Keith Atkinson Other [facility] 01-10-2016 influenza virus vaccine, unspecified formulation Moise JOY [facility] 12-28-2014 influenza virus vaccine, unspecified formulation Moise JOY [facility] 01-10-2009 influenza, whole Moise PIZANO [facility] NEGATED: Highlighted row has not occurred!10-08-2021 SARS-CoV-2 mRNA (tozinameran 5y-11y) vaccine Moise JOY [facility] Payers Date Payer Category Payer Medicare [id number] 2.16.8 [id number] 1957 Medicare [id number] 2. [id number] 1957 Medicare [id number] 1945 Unknown [id number] 2.16.84 [id number] 1945 Unknown [id number] 2.16.84 [id number] 1945 Unknown [id number] 2.16.84 [id number] 1945 Unknown [id number] 2.16.8 [id number] 1945 Unknown [id number] 2.16.8 [id number] 1945 Unknown [id number] 2.16.8 [id number] 1945 Unknown [id number] 2.16.8 [id number] 1945 Unknown [id number] 2.16.8 [id number] Medicare Medicare [id number] 0ea [id number] Self-pay Self Pay [id number] Unknown O [id number] Social History Date Type Detail Facility Unknown if ever smoked [facility] [employer] Other Sex Assigned At [facility] [employer] Other Start: 03-31-2020 Tobacco smoking status Never s moked tobacco (finding) [facility] Start: 01-27-2023 End: 10-14-2023 Tobacco smoking status Ex-smoker (finding) [facility] Tobacco smoking status Never [facility] Start: 1945 Sex Assigned At Male F [facility] Functional Status Date Assessment Result Facility 01-27-2023 Functional Status N/A [facility] 10-08-2021 Functional Status N/A [facility] Clinical Notes 09-29-2020 to 10-14-2023 Note Date & Type Note Facility 10-14-2023 Evaluation note Authored October 14, 2023 9:02 am The above note written by __ _Sarah Deshpande____ acting as human recorder, note dictated by Dr. Esparza .I performed the above HPI, ROS, and Examination. I formulated and dictated the treatment plan and was present for entire encounter. Keith Atkinson D.O. [facility] Work Phone: [phone]) 467-975801-16-2024 Evaluation note* Encounter Date Diagnosis Assessment Notes [...] above medication daily as directed. 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) [facility] Other 12-18-2023 Evaluation note* Encounter Date Diagnosis Assessment Notes Treatment Notes Treatment Clinical Notes Feb, COPD (chronic obstructive pulmonary disease) (ICD-10 - J44.9) [facility] [employer] Other 10-24-2023 Note [id number] 12-19-2022 Hospital Discharge instructions Follow Up Care 12/19/2022 14:25:52 With:DAVE SELF, Moise Bills, URL Address: [facility] [address], [place] [address]- When:Within 1 Year(s) Comments:w/PSA [facility] 09-07-2023 Evaluation note* Encounter Date Diagnosis Assessment Notes Treatment Notes Treatment Clinical Notes Nov, Anxiety and depression (ICD-10 - F41.8) [facility] [employer] Other 07-11-2023 Evaluation note* Encounter Date Diagnosis [...] I did recommend that he see a gas and oil servicer, and he refuses. He states that he does not feel that he is that bad . 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 His voices that he does not use the Spiriva as directed. We discussed that there are newer medications that can be used to treat his COPD, but they should be given by a gas and oil servicer. He only uses the Spiriva as needed. [...] I did recommend that he see a supervisor feed house for evaluation to discuss what has been going on and determine what testing needs to be done. He refuses. He does not want the hassle of going to the supervisor feed house. He states that when he hits the [...] above medication daily as directed. Sep, Other snf (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 therapy (ICD-10 - Z79.899) [facility] Other 03-24-2023 Evaluation note* Encounter Date Diagnosis Assessment Notes Treatment Notes Treatment Clinical Notes May, Thrush (ICD-10 - B37.0) [facility] Other 02-27-2023 Evaluation note* Encounter Date Diagnosis [...] when he is seen in one month. 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 It could be his lungs that are [...] days a week instead of seven days. 05 Jarvis, 2023 COPD (chronic obstructive pulmonary disease) (ICD-10 - [...] TSH is normal at 1.754. 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 [facility] Other 07-18-2022 Hospital Discharge instructions Patient Education [...] have oneof these risk factors: ?Being of -[place] descent. ?Having a family history of prostate [...] you: Are older than age 55. Are -[place]. Have a father, brother, or uncle who [...] 12/19/2017 Document Revised: 02/20/2018 Document Reviewed: 12/19/2017 [employer] [facility] Patient Education 2020 [employer]. Follow Up Care 07/25/2021 09:55:06 With:DAVE SELF, Moise Bills, URL Address: [facility] [address] [place] [address]- [phone] When:10/08/2022 [facility] Ang[facility]lica 06-23-2022 Evaluation note* Encounter Date [...] that beyond that he should see a mechanical expert. He should wear a wide brimmed hat, and wear a chapstick with SPF to protect this area from the sun. If he wants to see a mechanical expert he should let me know. If he [...] Continue with above medication as needed. 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 [facility] Other 03-14-2022 Evaluation note* Encounter Date Diagnosis Assessment Notes Treatment Notes Treatment Clinical Notes May, COPD (chronic obstructive pulmonary disease) (ICD-10 - J44.9) [facility] Other 02-16-2022 Evaluation note* Encounter Date Diagnosis Assessment Notes Treatment Notes Treatment Clinical Notes Apr, Constipation (ICD-10 - K59.00) RTO 4-6 WEEKS Apr, Abdominal pain (ICD-10 - R10.9) Apr, Nausea (ICD-10 - R11.0) [facility] Other 01-12-2022 Evaluation note* Encounter Date Diagnosis [...] Mar, Other 1:52 PM - 1:58 PM [facility] [facility] Other 01-04-2022 Evaluation note* Encounter Date Diagnosis Assessment Notes Treatment Notes Treatment Clinical Notes Mar, Fatigue (ICD-10 - R53.83) Mar, Exposure to COVID-19 virus (ICD-10 - Z20.828) [facility] Other 12-21-2021 Evaluation note* Encounter Date Diagnosis [...] with above medication daily as directed. Feb, halfway use of drug (ICD-10 - Z79.899) Feb, [...] [place] for evaluation next month (Mar 2021). [facility] Other 07-09-2021 NoteHNO ID: [id number] Author: Addis Michaud MD Service: ? Author [...] in the past, he was seeing a [place] gas and oil servicer. He had PFTs, about 2 years. He [...] years before he quit. 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 He went out on [...] Take by mouth once (more content not included)...[facility]07-09-2021 NoteProcedure (PULMAV) JB VAIL ([id number]) 1945 M Date Time Provider Department 09/29/20 8:30 AM PULM LAB [facility] REJ PULMAV During your visit today, we recorded the following information about you: Referring Provider: SELF [200] Allergies As of Date: 09/29/2020 Noted Allergy Reaction PENICILLINS 05/27/2001 2 - Rash SULFA (SULFONAMIDE ANTIBIOTICS) 05/27/2001 2 - Rash Date Reviewed: 09/29/2020 Reviewed by: Barb Lozoya, BLINDSTITCH MACHINE OPERATOR - Fully Assessed Reason for Visit: Spirometry [191] Visit Diagnosis:Dyspnea on exertion [R06.00] Order(s):SPIROMETRY WITH DILATOR IF OBSTRUCTED [5298300] Order #: [id number] Prescriptions as of 09/29/2020 - dicyclomine (BENTYL) [...] R25.9] Encounter Status:Closed by BARB LOZOYA on 09/29/20[facility] 09-29-2020 NoteHNO ID: [id number] Author: RT Mg(Negar) Service: Radiology Author Type: Bottle Washer Type: Progress Notes Filed: 09/29/2020 8:07 AM [...] BY: RT Mg(R) [facility] Appointment Date:10/11/2022 08:00:00 AM Scheduled Provider:Moise JOY MD Location:[facility] Appointment Type:URO Office Visit Diagnostic Tests Pending * PSA Total 10/08/21 [facility] evaluation + Plan note Future Appointments Appointment Date:01/30/2024 08:30:00 AM Scheduled Provider:Moise JOY MD Location:[facility] Appointment Type:URO Office Visit Diagnostic Tests Pending * PSA Total 01/27/23 [facility] evaluation + Plan note Future Appointments Appointment Date:01/30/2024 08:30:00 AM Scheduled Provider:Moise JOY MD Location:[facility] Appointment Type:URO Office Visit [facility] evaluation noteNo [facility] OB10 Other Evaluation note* Diagnosis Onset Date Resolution Status Abdominal pain acute Abscess acute Anemia acute BPH (benign prostatic hyperplasia) acute Chest pain acute Cold sore acute Constipation acute COPD (chronic obstructive pulmonary disease) acute Hyperglycemia acute Hyperlipidemia acute Weight loss acute [facility] Work Phone: Hisdbcw general Narrative - Reported* Type Description Date [...] Surgical History TRUS with Biopsy Dr. 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 Pressley 08-07-18 Surgical History Colonoscopy, EGD, Dr. Puente 08/22 Hospitalization History see above [facility] Other History general Narrative - Reported* Type [...] Dr. Pressley 08-07-18 Hospitalization History see above [facility] Other Hospital course Narrative No data available for this section [facility] Hospital Discharge instructions No data available for this section [facility] progress note No data available for this section [facility] Summary Purpose Family History Relationship Condition Age [...] ) Referral Organization [facility] Referring Provider First Name Keith Referring Provider Last Name Prieto Referring Provider Specialty Family Prac tomy Referred Organization [facility] Referred Provider Keith Puente Referred Address [address],[address] Referred Provider Specialty Gastroentero logy Referral Priority [...] obstructive pulmonary disease) Hyperglycemia Hyperlipidemia Weight loss Chief Complaint Amb Documentation review labs vertigo Reason for Visit Abdominal pain Abscess Anemia BPH (benign prostatic hyperplasia) Chest pain Cold sore Constipation COPD (chronic obstructive pulmonary disease) Hyperglycemia Hyperlipidemia Weight loss BPH (benign prostatic hyperplasia) Memory difficulty Vertigo Additional Source Comments (unrecognized sect ion and content) No Status Records FoundNo Status Records FoundNo Status Records FoundNo Status Records FoundNo Status Records Found INFORMATION SOURCE (unrecogn ized section and content) DATE CREATED AUTHOR 09/30/2020 [facility] DATE CREATED AUTHOR AUTHOR'S ORGANIZ ATION 05/07/2021 [facility] DATE CREATED AUTHOR AUTHOR'S ORGANIZ ATION 08/27/2021 [facility] DATE CREATED AUTHOR AUTHOR'S ORGANIZ ATION 04/16/2022 [facility] DATE CREATED AUTHOR AUTHOR'S ORGANIZ ATION 05/14/2023 [facility] REASON FOR VISIT (unrecogniz ed section [...] 2023 Team Status: Active Member Role Status Dates Keith Atkinson DO Primary Care Provide r, Attending Provider Active Start: October 09, 2023 Team Status: Inactive Member Role Status Dates Keith Atkinson DO Primary Care Provide r, Attending Provider Active Start: October 14, 2023 End: October 14, 2023 Team Status: Inactive Member Role Status Dates Keith Atkinson DO Primary Care Provide r, Attending Provider Active Start: December 17, 2023 End: December 17, 2023 Goals (unrecognized section and content) Goals [...] BE BASED ON THE PRIMARY CLINICAL RECORDS. [employer] [facility]. provides no warranty or guarantee of the accuracy or completeness of information in this document.
[2023-12-18 12:58] LABS: Hemoglobin 13.5 g/dL (14.0-18.0)
--- NOTE | 2023-12-18 14:01 | RT_ITS ---
[facility] Test Date: 2023-12-18 Pat Name: JB VAIL Department: Room: - Gender: Male Director Of Development: Sirena Sheppard RRT : 1945 Requested By: Augie Avalos Order Number: [id number] Reading MD: Augie Avalos Interpretive Statements Pulmonary function testing was completed according to ATS criteria. Findings were considered accurate and reproducible, with exception of DLCO which did not meet ATS standards. Both pre- and post-bronchodilator values utilized for spirometry. Spirometry (based on pre-bronchodilator values): -FEV1/FVC: Reduced @ 60% -FEV1: Increased @ 140% -FVC: Increased @ 163% -There is no significant bronchodilator response. Lung volumes by plethysmography: -RV: Increased @ 213% -TLC: Increased @ 171% Diffusion capacity: -DLCO: Normal @ 124% when corrected for Hb 13.5g/dL Flow-volume loop: -Mild obstructive pattern Impressions: -Mild obstructive pattern on spirometry without a bronchodilator response. An elevated RV and TLC suggest air trapping and hyperinflation respectively. The diffusion capacity is normal. Overall study suggests asthma with loss of bronchodilator response vs. asthma-COPD overlap. Clinical correlation required. Electronically Signed On 12-24-2023 6:36:53 EDT by Augie Avalos
[2023-12-18] MEDS: ALBUTEROL SULFATE 2.5 MG/3 ML VIAL NEB IH (14:05)
== END 2023-12-18 12:47 | disposition home or self-care (01) ==
LOC: CARD 12:46
PROVIDERS: PCP Family Medicine; Visit Provider Internal Medicine
DX: J45.40 Moderate persistent asthma, uncomplicated (principal); J43.2 Centrilobular emphysema
CPT/HCPCS: 36415; 85018; 94060; 94726; 94729

== ENCOUNTER 2024-01-01 14:03 | Outpatient (RCR) | payer MEDICARE, SELFPAY | END 2024-01-22 16:16 | disposition home or self-care (01) | LOC: PT 14:03 | PROVIDERS: PCP Family Medicine; Visit Provider Family Medicine | DX: R42 Dizziness and giddiness (principal) | CPT/HCPCS: 95992; 97161; 97530 ==

== ENCOUNTER 2024-01-21 10:12 | Outpatient (OUT) | payer MEDICARE, SELFPAY ==
--- OUTSIDE RECORDS SUMMARY | 2024-01-21 10:22 | XMS_ITS | CCD ---
Author Organization [facility] Care Team Providers Care Office Assistant Name Role Phone Keith Atkinson Unavailable Keith Puente Unavailable Keith Atkinson Primary Care Physician [phone] Teetee Gonzalez Unavailable Unavailable GIRVIN, DR PARKER [...] Penicillin; Translations: [penicillin] Drug Allergy hives [facility] Rep[facility] (20 sources) [facility]ulf[facility]amide [facility] (7 sources) Penicillins; Translations: [penicillins] Drug allergy 4 Hives, Unknown Reaction, hives [facility] (4 sources) Sulfonamides (Antibiotic); Translations: [sulfa drugs] Drug allergy [facility] (1 source) Sulfonamides (Antibiotic) Drug allergy (disorder) [facility] Rep[facility] (3 sources) Sulfonamides (Antibiotic) Allergy to substance 4 Unknown Reaction [facility] Medications Current Medications Medication Drug Class(es) Dates Sig (Normalized) Sig (Original) [id number] 200 actuat albuterol 0.09 mg/actuat metered dose inhaler (11 sources) beta2-Adrenergic Agonist Start: 09-26-2023 Albuterol Sulfate [...] # 56 tab(s), Refills(s) 0, Pharmacy: [facility]/pharmacy #[id number], 177, cm, 01/27/23 11:11:00 EST, Height/Length [...] Active docusate sodium 50 mg / sennosides, residential 8.6 mg oral tablet (3 sources) Start: [...] Status: Ordered mecobalamin 1 mg chewable tablet (3 sources) Start: 09-26-2023 take 1 tablet by [...] day for 10 day(s) July, Active nystatin [id number] unt/ml oral suspension (10 sources) Polyene Antifungal Start: 05-20-2022 Nystatin [id number] UNIT/ML 5 ml (2.5 ml each side of the mouth) Mouth/Throat qid for 7 days Apr, Active Start: 05-20-2022 Nystatin 65241 0 UNIT/ML 5 ml (2.5 ml each [...] Jun, Active ubidecarenone 30 mg oral capsule (3 sources) Start: 08-21-2021 Coenzyme Q10 ( Co Q-10) 30 mg Capsule Active 30 MG PO Daily August 21, 2021 12:00am valACYclovir 1000 mg oral tablet (20 sources) Herpesvirus Nucleoside Analog DNA Polymerase Inhibitor, Herpes Simplex Virus Nucleoside Analog DNA Polymerase Inhibitor, Herpes Zoster Virus Nucleoside Analog DNA Polymerase Inhibitor Start: 01-20-2024 Valacyclovir (Valtrex) 1 gram tablet Active 1000 MG PO Three times daily January 20, 2024 12:00am Start: 11-19-2023 take 1 tablet by trang th once daily Valacyclovir (Valtrex) 500 mg tablet Active 500 MG PO Daily 90 November 19, 2023 1:57pm Start: 11-17-2023 End: 11-19-2023 take 1 tablet by mouth three times [...] at mealtime Venlafaxine Discontinued 0 .ROUTE .COMPLEX September 19, 2023 8:09am October 14, 2023 8:29am TAKE 1 CAPSULE BY MOUTH DAILY WITH FOOD Start: 09-19-2023 End: 09-19-2023 take 75 mg by mouth once daily at mealtime Venlafaxine Discontinued 75 MG PO Daily September 19, 2023 12:00am September 19, 2023 8:09am WITH FOOD Start: 03-04-2019 take 1 capsule by [facility] once daily venlafaxine 75 mg Cap-ER 75 [...] bisacodyl 5 mg delayed release oral tablet (20 sources) Stimulant Laxative Start: 09-26-2023 End: 10-14-2023 [...] Start: 08-02-2021 take 2 tablets by mo [facility] once daily as needed Dulcolax 5 [...] # 60 cap(s), Refills(s) 0, Pharmacy: [facility]/pharmacy #[id number] Start Date: 03/30/19 Status: Ordered pantoprazole 40 mg delayed release oral tablet (17 sources) Proton Pump Inhibitor Start: 08-02-2021 End: 10-14-2023 take 40 mg by mouth once daily Pantoprazole Discontinued 40 MG PO Daily August 21, 2021 12:00am October 14, 2023 8:18am 60 actuat tiotropium 0.0025 mg/actuat inhalation spray (20 sources) Anticholinergic Start: 09-26-2023 End: 12-17-2023 take 1 puff(s) by inhalation once daily Tiotropium Lynco (Spiriva Respimat) 2.5 mcg/actuation mist Discontinued 2 [...] Chronic Conditions associated with dizziness or vertigo (5 sources) Vertigo; Translations: [Dizziness and giddiness] 12-17-2023 Episodic Deficiency and other anemia (8 sources) Anemia, unspecified; Translations: [Anemia, unspecified] Onset: 03-13-2021 Resolved: 09-13-2021 Episodic Deficiency and other anemia (3 sources) Anemia; Translations: [Anemia, unspecified] 10-14-2023 Episodic Diabetes mellitus without complication (11 sources) Hyperglycemia, unspecified; Translations: [Hyperglycemia] Onset: 03-13-2021 [...] sources) Candidal stomatitis Episodic Nonspecific chest pain (6 sources) Chest pain, unspecified; Translations: [Chest pain] Episodic Other aftercare (6 sources) Other [facility] (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 therapy; Translations: [OTH SKILLED NURSING CURRENT DRUG THERAPY] Onset: 03-13-2021 Resolved: 09-13-2021 Episodic Other and unspecified benign neoplasm (1 source) Neoplasm and/or hamartoma; Translations: [Melanocytic nevi, unspecified] 01-20-2024 Episodic Other and unspecified benign neoplasm (1 source) Melanocytic nevi, unspecified; Translations: [Neoplasm of uncertain behavior of skin] 01-20-2024 Episodic Other gastrointestinal disorders (20 sources) Irritable [...] nutritional; endocrine; and metabolic disorders (3 sources) Weight loss; Translations: [Abnormal weight loss] 10-14-2023 Episodic Other screening for suspected conditions (not mental disorders or infectious disease) (10 sources) Abnormal results of thyroid function studies; Translations: [Abnormal blood-gas level] Onset: 03-13-2021 Resolved: 09-13-2021 Episodic Residual codes; unclassified (6 sources) Other amnesia; Translations: [Memory loss] Onset: 03-13-2021 Resolved: 09-13-2021 Episodic Residual codes; unclassified (3 sources) Insomnia; Translations: [Insomnia, unspecified] 09-26-2023 Episodic Residual codes; unclassified (3 sources) Memory impairment; Translations: [Other amnesia] 10-14-2023 Episodic Screening and history of mental health and substance abuse codes (3 sources) Ex-smoker 03-29-2019 Episodic Skin and subcutaneous tissue infections (5 sources) Abscess; Translations: [Cutaneous abscess, unspecified] 10-14-2023 Episodic Spondylosis; intervertebral disc disorders; other back problems (20 sources) Degeneration of lumbar intervertebral disc; Translations: [Other intervertebral disc degeneration, lumbar region] Chronic Unclassified (3 sources) Patient encounter status 03-29-2019 Viral infection (7 sources) Herpesviral vesicular dermatitis; 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] [...] Test Name Value Interpretation Reference Range Facility Hemoglobin [Mass/volume] in Bloodon 12-18-2023 Hemoglobin (Bld) [Mass/Vol] 13.5 g/dL Low 14.0-18.0 [facility] Basophils Auto (Bld) [#/Vol] on 10-09-2023 Basophils (Bld) [#/Vol] 0.0 10 3/uL 0.0-0.1 [facility] Basophils/100 WBC Auto (Bld) on 10-09-2023 Basophils/100 WBC (Bld) 0.4 % 0.2-2.0 [facility] Cholesterol in LDL Calc [Mas s/Vol]on 10-09-2023 Cholesterol in LDL [Mass/Vol] 111.0 mg/dL [facility] Comment on above: <100 mg/dl [id number] 0-129 mg/dl NEAR OR ABOVE [id number] mg/dl BORDERLINE CEVF714-920 mg/dl HIGH>190 mg/dl VERY HIGH Cholesterol in VLDL Calc [Ma ss/Vol]on 10-09-2023 Cholesterol in VLDL [Mass/Vol] 18.8 mg/dL [facility] Eosinophils/100 WBC Auto (Bl d)on 10-09-2023 Eosinophils/100 WBC (Bld) 1.1 % 0.9-7.0 [facility] Erythrocyte distribution wid th Auto (RBC) [Ratio]on 10-09-2023 Erythrocyte distribution width (RBC) [Ratio] 13.1 % 11.0-15.0 [facility] Estimated glomerular filtrat ion rate (GFR) non- Americanon 10-09-2023 GFR/1.73 sq M.predicted among non-blacks MDRD (S/P/Bld) [Vol rate/Area] mL/min/{1.73_m2} >=60 [facility] Globulin Calc (S) [Mass/Vol] on 10-09-2023 Globulin (S) [Mass/Vol] 3.7 g/dL [facility] Glucose mean value [Mass/vol ume] in Blood Estimated from glycated hemoglobinon 10-09-2023 Average glucose Estimated from glycated hemoglobin (Bld) [Mass/Vol] 108 mg/dL [facility] Hematocrit Auto (Bld) [Volum e fraction]on 10-09-2023 Hematocrit (Bld) [Volume fraction] 42.4 % 42.0-54.0 [facility] Hemoglobin [Mass/volume] in Bloodon 10-09-2023 Hemoglobin (Bld) [Mass/Vol] 13.7 g/dL Low 14.0-18.0 [facility] Laboratory - Chemistry and C hemistry - challengeon 10-09-2023 Albumin [Mass/Vol] 3.6 g/dL 3.4-5.0 [facility] ALP [Catalytic activity/Vol] 63 U/L 46-116 [facility] ALT [Catalytic activity/Vol] 31 U/L 16-63 [facility] AST [Catalytic activity/Vol] 24 U/L 15-37 [facility] Bilirubin [Mass/Vol] 0.7 mg/dL 0.2-1.0 [facility] Calcium [Mass/Vol] 9.1 mg/dL 8.5-10.1 [facility] Chloride [Moles/Vol] 103 mmol/L 98-107 [facility] Cholesterol [Mass/Vol] 192 mg/dL <=200 [facility] Cholesterol in HDL [Mass/Vol] 63 mg/dL High 40-60 [facility] Comment on above: > or =60 mg/dl - LOW CARDIOVASCULAR RISK<40 mg/dl - HIGH CARDIOVASCULAR RISK CO2 [Moles/Vol] 28.9 mmol/L 21.0-32.0 [facility] Cobalamin (Vitamin B12) [Mass/Vol] 761.0 pg/mL 193.0-986.0 [facility] Creatinine [Mass/Vol] 0.79 mg/dL 0.70-1.30 [facility] GFR/1.73 sq M.predicted MDRD (S/P/Bld) [Vol rate/Area] mL/min/{1.73_m2} >=60 [facility] Glucose [Mass/Vol] 104 mg/dL 74-106 [facility] Potassium [Moles/Vol] 4.5 mmol/L 3.5-5.1 [facility] Protein [Mass/Vol] 7.3 g/dL 6.4-8.2 [facility] Sodium [Moles/Vol] 138 mmol/L 136-145 [facility] Triglyceride [Mass/Vol] 94 mg/dL <=150 [facility] TSH Qn 1.603 m[IU]/L 0.358-3.740 [facility] Urea nitrogen [Mass/Vol] 15.0 mg/dL 7.0-18.0 [facility] Urea nitrogen/Creatinine [Mass ratio] 19.0 mg/mg [facility] Laboratory - Hematology and Cell countson 10-09-2023 HbA1c (Bld) [Mass fraction] 5.4 % 4.5-6.2 [facility] Comment on above: ADA RECOMMENDED LIMI T 4.0 - 6.0ADA THERAPEUTIC TARGET < 7.0ACTION SUGGESTED> 7.0 Immature granulocytes/100 WBC (Bld) 0.3 % 0.0-0.5 [facility] Leukocytes [#/volume] correc greg for nucleated erythrocytes in Blood by Automated counon 10-09-2023 WBC corrected for nucl RBC Auto (Bld) [#/Vol] 7.9 10 3/uL 4.0-11.0 [facility] Lymphocytes Auto (Bld) [#/Vo l]on 10-09-2023 Lymphocytes (Bld) [#/Vol] 2.1 10 3/uL 1.2-3.8 [facility] Lymphocytes/100 WBC Auto (Bl d)on 10-09-2023 Lymphocytes/100 WBC (Bld) 25.9 % 20.5-60.0 [facility] MCH Auto (RBC) [Entitic mass ]on 10-09-2023 MCH (RBC) [Entitic mass] 31.4 pg 25.9-34.0 [facility] MCHC Auto (RBC) [Mass/Vol]on 10-09-2023 MCHC (RBC) [Mass/Vol] 32.3 g/dL 29.9-35.2 [facility] MCV Auto (RBC) [Entitic vol] on 10-09-2023 MCV (RBC) [Entitic vol] 97.0 fL High 80.0-94.0 [facility] Monocytes Auto (Bld) [#/Vol] on 10-09-2023 Monocytes (Bld) [#/Vol] 0.7 10 3/uL 0.3-0.8 [facility] Monocytes/100 WBC Auto (Bld) on 10-09-2023 Monocytes/100 WBC (Bld) 9.1 % 1.7-12.0 [facility] Neutrophils Auto (Bld) [#/Vo l]on 10-09-2023 Neutrophils (Bld) [#/Vol] 5.0 10 3/uL 1.4-6.5 [facility] Neutrophils/100 WBC Auto (Bl d)on 10-09-2023 Neutrophils/100 WBC (Bld) 63.2 % 43.0-75.0 [facility] No Panel Informationon 10-08 Eosinophils # (Auto) 0.1 10 3/uL 0.0-0.7 [place] Folate 10.90 ng/mL 8.60-58.90 [facility] Immature Granulocyte # (Auto) 0.02 10 3/uL 0.00-0.03 [facility] Platelet mean volume Auto (B ld) [Entitic vol]on 10-09-2023 Platelet mean volume (Bld) [Entitic vol] 9.1 fL Low 9.5-13.5 [facility] Platelets Auto (Bld) [#/Vol] on 10-09-2023 Platelets (Bld) [#/Vol] 234 10 3/uL 150-450 [facility] RBC Auto (Bld) [#/Vol]on RBC (Bld) [#/Vol] 4.37 10 6/uL Low 4.70-6.10 [facility] Serum or plasma albumin/glob ulin mass ratioon 10-09-2023 Albumin/Globulin [Mass ratio] 1.0 {ratio} [facility] Serum or plasma anion gap de terminationon 10-09-2023 Anion gap [Moles/Vol] 10.6 mmol/L [facility] Serum or plasma total choles terol/high density lipoprotein (HDL) cholesterol mass melly 10-09-2023 Cholesterol.total/Ch olesterol in HDL [Mass ratio] 3.0 {ratio} [facility] Comment on above: 3.3 - 4.4 [...] year [facility] [address], [place] [address]- Additional Instructions: w/PSA Patient Education I, Lynette [...] 24 m (more content not included)... Normal [facility] Comment on above: Result Comment: Elec tronically Signed By: Moise JOY MD\.br\Date and Time Signed: 01/27/23 11:59 EST\.br\Electronically Co-Signed By: Lynette Rasmussen\.br\Date and Time Co-Signed: 01/27/23 11:58 EST Prostate Histology ([facility]) on 01-20-2023 Prostate Histology Diagnosis Info Invalid Interpretation Code [facility] Comment on above: Result Comment: A:Pr ostate,Left Lateral Base:Needle Biopsy Interpretation - - Benign prostatic tissue. MicroScopic Description - B:Prostate,Left Lateral Mid:Needle Biopsy Interpretation - - Benign prostatic tissue. MicroScopic Description - C:Prostate,Left Lateral [place]:Needle Biopsy Interpretation - - Benign prostatic tissue. MicroScopic Description - D:Prostate,Left Base:Needle Biopsy Interpretation - - Benign prostatic tissue. MicroScopic Description - E:Prostate,Left Mid:Needle Biopsy Interpretation - - Benign prostatic tissue. MicroScopic Description - F:Prostate,Left [place]:Needle Biopsy Interpretation - - Benign prostatic tissue. MicroScopic Description - G:Prostate,Right Base:Needle Biopsy Interpretation - - Benign prostatic tissue. MicroScopic Description - H:Prostate,Right Mid:Needle Biopsy Interpretation - - Benign prostatic tissue. MicroScopic Description - I:Prostate,Right [place]:Needle Biopsy Interpretation - - Benign prostatic tissue with patchy chronic inflammation. MicroScopic Description - J:Prostate,Right Lateral Base:Needle Biopsy Interpretation - - Benign prostatic tissue. MicroScopic Description - K:Prostate,Right Lateral Mid:Needle Biopsy Interpretation - - Benign prostatic tissue with patchy chronic inflammation. MicroScopic Description - L:Prostate,Right Lateral [place]:Needle Biopsy Interpretation - - Benign prostatic tissue. [...] cores 1 units cm stringy CPT code: 83112 x 12 Electronically signed by : on: 01/20/2023 12:00:15 Performed By: #### 1 [id number] ####[facility] [address] [place] [address] Consent for Procedure/Surger yon 01-14-2023 Consent for Procedure/Surgery [id number]# 1.00TIFF Normal [facility] Consent for Treatmenton 12-23 Consent for Treatment [id number]#[address] [facility] IntraOperative Documentson 1 IntraOperative Documents [id number]# 1.00TIFF Normal [facility] Main OR Intraoperative Recor don 01-14-2023 Main OR Intraoperative Record IntraOp Document Type FTURO Summary Primary Physician: Moise JOY MD Finalized Date/Time: 01/14/23 10:46:07 Pt. Name: YAREDJBO.B./Sex: 1945 Male Med Rec #: [id number] Physician: Moise JOY MD Financial #: [id number] Pt. Type: O Room/Bed: / Admit/Disch: 01/14/23 09:16:22 - Institution: Case Times FTURO Entry 1 Patient Times In Room 01/14/23 10:16:00 Out Room 01/14/23 10:37:00 Procedure Times Start 01/14/23 10:20:00 Stop 01/14/23 10:32:00 Anesthesia Times Last Modified By: Dunia RAMOS, Calli ZAFAR 01/14/23 10:32:45 Case Attendance FTURO Entry 1 Entry 2 Entry 3 Case Attendee DAVE SELF, Moise Duque RN, COLTONOR, Jorge Lockhart Role Performed Surgeon - Primary Visual Merchandising Associate - Primary Scrub - Primary Time In 01/14/23 10:16:00 01/14/23 10:16:00 01/14/23 10:16:00 Time Out 01/14/23 10:37:00 01/14/23 10:37:00 01/14/23 10:37:00 Procedure PROSTATE TRANSRECTAL PROSTATE TRANSRECTAL PROSTATE TRANSRECTAL ULTRASOUND WITH BIO(.) ULTRASOUND WITH BIO(.) ULTRASOUND WITH BIO(.) Comments Last Modified By: Dunia RAMOS, CNOR, Dunia RN, COLTONOR, Dunia RAMOS, ANDRADE, Calli 01/14/23 Calli 01/14/23 Calli 01/14/23 10:32:46 10:32:46 [...] JOY MD, Verified (If Participants Dunia RAMOS, COLTONOR, Applicable) Calli Time Out Complete 01/14/23 10:19:00 [...] ANDRADE Duque RN, Ruthann 01/14/23 10:[address] [facility] Main OR Preoperative Recordo n 01-14-2023 Main OR Preoperative Record Holding Area Document Type FTURO Summary Primary Physician: Moise JOY MD Finalized Date/Time: 01/14/23 10:20:23 Pt. Name: YAREDJB /Sex: 1945 Male Med Rec #: [id number] Physician: Moise JOY MD Financial #: [id number] Pt. Type: O Room/Bed: / Admit/Disch: 01/14/23 [...] of Pain: No Skin Integrity Dry, Warm, [place] Vitals - EU Blood Pressure 127/69 Pulse 70 bpm Respirations 18 br/min SPO2 Additional None RN Reviewed Yes Specimens Collected Last Modified By: ANDRADE Duque RN, Ruthann 01/14/23 10:20:21 General Comments: 97.2 Finalized By: ANDRADE Duque RN, Ruthann Document Signatures Signed By: Rebecca Glez RN 01/14/23 09:44 ANDRADE Duque RN, Ruthann 01/14/23 10:20 Normal [facility] Operative Reporton Operative Report Patient: JB VAIL Age: 77 [...] were sent to pathology for evaluation. Normal [facility] Comment on above: Result Comment: Elec tronically Signed By: DAVE SELF, Moise Marinelli\Date and Time Signed: 01/14/23 10:38 EDT Patient [...] for your post-operative appointment in 1-2 weeks [phone] or [phone] [facility] Prostate Histology ([facility]) on 01-14-2023 PH Method of Extraction Needle Biopsy Normal [facility] Comment on above: Performed By: #### 1 [id number] ####[facility] [address] [place] [address] PH Number of Jars [address] [facility] Comment on above: Performed By: #### 1 [id number] ####[facility] [address] [place] [address] PH Specimen 1 L Apx Prostate [address] [facility] Comment on above: Performed By: #### 1 [id number] ####[facility] [address] [place] [address] PH Specimen 10 R Lat Bse Prost Normal [facility] Comment on above: Performed By: #### 1 [id number] ####[facility] [address] [place] [place] [address] PH Specimen 11 R Mid Prostate Normal [facility] Comment on above: Performed By: #### 1 [id number] ####[facility] [address] [place] [address] PH Specimen 12 R Lat Mid Prost Normal [facility] Comment on above: Performed By: #### 1 [id number] ####[facility] [address] [place] [address] PH Specimen 2 L Base Prostate Normal [facility] Comment on above: Performed By: #### 1 [id number] ####[facility] [address] [place] [address] PH Specimen 3 L Lat Apx Prost Normal [facility] Comment on above: Performed By: #### 1 [id number] ####[facility] [address] [place] [address] PH Specimen 4 L Lat Bse Prost Normal [facility] Comment on above: Performed By: #### 1 [id number] ####[facility] [address] [place] [address] PH Specimen 5 L Lat Mid Prost Normal [facility] Comment on above: Performed By: #### 1 [id number] ####[facility] [address] [place] [address] PH Specimen 6 L Mid Prost 1 Normal [facility] Comment on above: Performed By: #### 1 [id number] ####[facility] [address] [place] [address] PH Specimen 7 R Apx Prostate Normal [facility] Comment on above: Performed By: #### 1 [id number] ####[facility] [address] [place] [address] PH Specimen 8 R Base Prostate Normal [facility] Comment on above: Performed By: #### 1 [id number] ####[facility] [address] [place] [address] PH Specimen 9 R Lat Apx Prost Normal [facility] Comment on above: Performed By: #### 1 [id number] ####[facility] [address] [place] [address] PH Type of Service Technical Only Normal [facility] Comment on above: Performed By: #### 1 [id number] ####[facility] [address] [place] [address] Insurance Correspondenceon 1 Insurance Correspondence [id number]# 1.00TIFF Normal [facility] Patient Letter FTon 2022 Patient Letter [facility] December 13, 2022 JB VAIL [address] [place] [phone] : 1945 Dear Mr. Jb Vail, This [...] Moise Joy M.D., F.A.C.S. [facility] [address] [place], [place] [address] , option #[address] [facility] Ambulatory Visit Summaryon 0 10-11-2022 Ambulatory [...] Wheeler When: Where: [facility] [address], [place] [address]- Medications What How Much When Instructions Unchanged [...] bowel syndrome) Screening for colon cancer Normal [facility] Insurance Correspondenceon 0 10-11-2022 Insurance Correspondence [id number]# 1.00CD:[address] [facility] Patient Educationon 10-12-19 Patient Education Oncology [...] Where to find more information ? [employer]: www.cancer.org ? [employer]: www.auanet.org Contact a health care [...] adds flu (more content not included)... Normal [facility] Urology Office/Clinic Noteon 10-11-2022 Urology Office/Clinic [...] URL [facility] [address], [place] [address]- Additional Instructions: Patient Education Prostate Cancer Screening [...] (Hives) Soci (more content not included)... Normal [facility] Comment on above: Result Comment: Elec tronically Signed By: Moise JOY MD\.br\Date and Time Signed: 10/11/22 08:36 EDT\.br\Electronically Co-Signed By: Lynette Rasmussen.br\Date and Time Co-Signed: 10/11/22 08:32 EDT Lab Reportson 10-07-2022 Lab Reports [id number]#1 .00CD:[address] [facility] Lab Reports [id number]#1 .00CD:127 [facility] CBC AUTO DIFFon 03-25-2022 BASO # 0.0 103/ul Normal 0.0-0.1 [facility] Comment on above: Performed By: #### L IPID, CMP, TSH #### [facility] [address] [place] [address] Dr. Peewee Russell Basophils/100 WBC (Bld) 0.3 % Normal 0.2-2.0 [facility] Comment on above: Performed By: #### L IPID, CMP, TSH #### [facility] [address] [place] [address] Dr. Peewee Russell EO # 0.1 103/ul Normal 0.0-0.7 [facility] Comment on above: Performed By: #### L IPID, CMP, TSH #### [facility] [address] [place] [address] Dr. Peewee Russell Eosinophils/100 WBC (Bld) 1.3 % Normal 0.9-7.0 [facility] Comment on above: Performed By: #### L IPID, CMP, TSH #### [facility] [address] [place] [address] Dr. Peewee Russell Erythrocyte distribution width (RBC) [Ratio] 12.4 % Normal 11.0-15.0 [facility] Comment on above: Performed By: #### L IPID, CMP, TSH #### [facility] [address] [place] [address] Dr. Peewee Russell Hematocrit (Bld) [Volume fraction] 43.2 % Normal 42.0-54.0 [facility] Comment on above: Performed By: #### L IPID, CMP, TSH #### [facility] [address] [place] [address] Dr. Peewee Russell Hemoglobin (Bld) [Mass/Vol] 14.3 g/dL Normal 14.0-18.0 [facility] Comment on above: Performed By: #### L IPID, CMP, TSH #### [facility] [address] [place] [address] Dr. Peewee Russell IG # 0.02 10e3/ul Normal 0.00-0.03 [facility] Comment on above: Performed By: #### L IPID, CMP, TSH #### [facility] [facility] [address] [place] [address] Dr. Peewee Russell IG % 0.3 % Normal 0.0-0.5 [facility] Comment on above: Performed By: #### L IPID, CMP, TSH #### [facility] [address] [place] [address] Dr. Peewee Russell LYMPH # 2.4 103/ul Normal 1.2-3.8 [facility] Comment on above: Performed By: #### L IPID, CMP, TSH #### [facility] [address] [place] [address] Dr. Peewee Russell Lymphocytes/100 WBC (Bld) 30.0 % Normal 20.5-60.0 [facility] Comment on above: Performed By: #### L IPID, CMP, TSH #### [facility] [address] [place] [address] Dr. Peewee Russell MANUAL DIFF REQ NO Normal [facility] Comment on above: Performed By: #### L IPID, CMP, TSH #### [facility] [address] [place] [address] Dr. Peewee Russell MCH (RBC) [Entitic mass] 31.0 pg Normal 25.9-34.0 [facility] Comment on above: Performed By: #### L IPID, CMP, TSH #### [facility] [address] [place] [address] Dr. Peewee Russell MCHC (RBC) [Mass/Vol] 33.1 g/dL Normal 29.9-35.2 [facility] Comment on above: Performed By: #### L IPID, CMP, TSH #### [facility] [address] [place] [address] Dr. Peewee Russell MCV (RBC) [Entitic vol] 93.7 fL Normal 80.0-94.0 [facility] Comment on above: Performed By: #### L IPID, CMP, TSH #### [facility] [address] [place] [address] Dr. Peewee Russell MONO # 0.7 103/ul Normal 0.3-0.8 [facility] Comment on above: Performed By: #### L IPID, CMP, TSH #### [facility] [address] [place] [address] Dr. Peewee Russell Monocytes/100 WBC (Bld) 8.4 % Normal 1.7-12.0 [facility] Comment on above: Performed By: #### L IPID, CMP, TSH #### [facility] [address] [address] [address] Peewee Russell NEUT # 4.7 103/ul Normal 1.4-6.5 [facility] Comment on above: Performed By: #### L IPID, CMP, TSH #### [facility] [address] [address] [address] Peewee Russell Neutrophils/100 WBC (Bld) 59.7 % Normal 43.0-75.0 [facility] Comment on above: Performed By: #### L IPID, CMP, TSH #### [facility] [address] [place] [address] Dr. Peewee Russell Platelet mean volume (Bld) [Entitic vol] 8.4 fL Critically low 9.5-13.5 [facility] Comment on above: Performed By: #### L IPID, CMP, TSH #### [facility] [address] [place] [address] Dr. Peewee Russell PLT 208 103/ul Normal 150-450 [facility] Comment on above: Performed By: #### L IPID, CMP, TSH #### [facility] [address] [place] [address] Dr. Peewee Russell RBC 4.61 106/ul Critically low 4.70-6.10 [facility] Comment on above: Performed By: #### L IPID, CMP, TSH #### [facility] [address] [place] [address] Dr. Peewee Russell WBC 7.9 103/ul Normal 4.0-11.0 [facility] Comment on above: Performed By: #### L IPID, CMP, TSH #### [facility] [address] [place] [address] Dr. Peewee Russell GLYCOHEMOGLOBIN A1Con 2022 ADA RECOMMENDATION SEE BELOW Normal [facility] Comment on above: Result Comment: ADA RECOMMENDED LIMIT 4.0 - 6.0 ADA THERAPEUTIC TARGET < 7.0 ACTION SUGGESTED > 7.0 Performed By: #### L IPID, CMP, TSH #### [facility] [address] [address] [address] Peewee Russell Glucose [Mass/Vol] 108 mg/dL Normal [facility] Comment on above: Performed By: #### L IPID, CMP, TSH #### [facility] [address] [address] [address] Peewee Russell HbA1c (Bld) [Mass fraction] 5.4 % Normal 4.5-6.2 [facility] Comment on above: Performed By: #### L IPID, CMP, TSH #### [facility] [address] [address] [address] Peewee Russell LIPID PROFILEon 03-25-2022 CHOL-HDL RATIO NORM SEE BELOW Normal [facility] Comment on above: Result Comment: 3.3 - 4.4 LOW RISK 4.4 - 7.1 AVERAGE RISK 7.1 - 11.0 MODERATE RISK >11.0 HIGH RISK Performed By: #### L IPID, CMP, TSH #### [facility] [address] [address] [address] Peewee Russell Cholesterol [Mass/Vol] 188 mg/dL Normal <=200 [facility] Comment on above: Performed By: #### L IPID, CMP, TSH #### [facility] [address] [address] [address] Peewee Russell Cholesterol in HDL [Mass/Vol] 65 mg/dL Critically high 40-60 [facility] Comment on above: Performed By: #### L IPID, CMP, TSH #### [facility] [address] [address] [address] Peewee Russell Cholesterol in LDL [Mass/Vol] 107.6 mg/dL Normal [facility] Comment on above: Performed By: #### L IPID, CMP, TSH #### [facility] [address] [address] [address] Peewee Russell Cholesterol.total/Ch olesterol in HDL [Mass ratio] 2.9 {ratio} Normal [facility] Comment on above: Performed By: #### L IPID, CMP, TSH #### [facility] [address] [address] [address] Peewee Russell HDL NORMAL > or = 60 mg/dl - LO W CARDIOVASCULAR RISK <40 mg/dl - HIGH CARDIOVASCULAR RISK Normal [facility] Comment on above: Performed By: #### L IPID, CMP, TSH #### [facility] [address] [address] [address] Peewee Russell LDL CALC NORMAL SEE BELOW Normal [facility] Comment on above: Result Comment: <100 mg/dl OPTIMAL 100 - 129 mg/dl NEAR OR ABOVE OPTIMAL 130 - 159 mg/dl BORDERLINE HIGH 160 - 189 mg/dl HIGH >190 mg/dl VERY HIGH Performed By: #### L IPID, CMP, TSH #### [facility] [address] [address] [address] Peewee Russell Triglyceride [Mass/Vol] 77 mg/dL Normal <=150 [facility] Comment on above: Performed By: #### L IPID, CMP, TSH #### [facility] [address] [address] [address] Peewee Russell VLDL CALC 15.4 mg/dL Normal [facility] Comment on above: Performed By: #### L IPID, CMP, TSH #### [facility] [address] [address] [address] Peewee Russell PROF 14(COMP METB)on 023 Albumin [Mass/Vol] 3.7 g/dL Normal 3.4-5.0 [facility] Comment on above: Performed By: #### L IPID, CMP, TSH #### [facility] [address] [address] [address] Peewee Russell Albumin/Globulin [Mass ratio] 1.0 {ratio} Normal [facility] Comment on above: Performed By: #### L IPID, CMP, TSH #### [facility] [address] [address] [address] Peewee Russell ALP [Catalytic activity/Vol] 68 U/L Normal 46-116 [facility] Comment on above: Performed By: #### L IPID, CMP, TSH #### [facility] [address] [address] [address] Peewee Russell ALT [Catalytic activity/Vol] 19 U/L Normal 16-63 [facility] Comment on above: Performed By: #### L IPID, CMP, TSH #### [facility] [address] [address] [address] Peewee Russell Anion gap [Moles/Vol] 8.3 mmol/L Normal [facility] Comment on above: Performed By: #### L IPID, CMP, TSH #### [facility] [address] [address] [address] Peewee Russell AST [Catalytic activity/Vol] 20 U/L Normal 15-37 [facility] Comment on above: Performed By: #### L IPID, CMP, TSH #### [facility] [address] [address] [address] Peewee Russell Bilirubin [Mass/Vol] 0.5 mg/dL Normal 0.2-1.0 [facility] Comment on above: Performed By: #### L IPID, CMP, TSH #### [facility] [address] [address] [address] Peewee Russell Calcium [Mass/Vol] 9.1 mg/dL Normal 8.5-10.1 [facility] Comment on above: Performed By: #### L IPID, CMP, TSH #### [facility] [address] [address] [address] Peewee Russell Chloride [Moles/Vol] 103 mmol/L Normal 98-107 [facility] Comment on above: Performed By: #### L IPID, CMP, TSH #### [facility] [address] [address] [address] Peewee Russell CO2 [Moles/Vol] 32.9 mmol/L Critically high 21.0-32.0 [facility] Comment on above: Performed By: #### L IPID, CMP, TSH #### [facility] [address] [address] [address] Peewee Russell Creatinine [Mass/Vol] 0.75 mg/dL Normal 0.70-1.30 [facility] Comment on above: Performed By: #### L IPID, CMP, TSH #### [facility] [address] [address] [address] Peewee Russell EGFR-AF MAURITIAN >60 Normal >=60 [facility] Comment on above: Performed By: #### L IPID, CMP, TSH #### [facility] [address] [address] [address] Peewee Russell EGFR-NON AF MAURITIAN >60 Normal >=60 [facility] Comment on above: Performed By: #### L IPID, CMP, TSH #### [facility] [address] [place] [address] Dr. Peewee Russell Globulin (S) [Mass/Vol] 3.6 g/dL Normal [facility] Comment on above: Performed By: #### L IPID, CMP, TSH #### [facility] [address] [place] [address] Dr. Peewee Russell Glucose [Mass/Vol] 114 mg/dL Critically high 74-106 [facility] Comment on above: Performed By: #### L IPID, CMP, TSH #### [facility] [address] [place] [address] Dr. Peewee Russell Potassium [Moles/Vol] 4.2 mmol/L Normal 3.5-5.1 [facility] Comment on above: Performed By: #### L IPID, CMP, TSH #### [facility] [address] [place] [address] Dr. Peewee Russell Protein [Mass/Vol] 7.3 g/dL Normal 6.4-8.2 [facility] Comment on above: Performed By: #### L IPID, CMP, TSH #### [facility] [address] [place] [address] Dr. Peewee Russell Sodium [Moles/Vol] 140 mmol/L Normal 136-145 [facility] Comment on above: Performed By: #### L IPID, CMP, TSH #### [facility] [address] [place] [address] Dr. Peewee Russell Urea nitrogen [Mass/Vol] 16.0 mg/dL Normal 7.0-18.0 [facility] Comment on above: Performed By: #### L IPIDJUAQUIN, TSH #### [facility] [address] [place] [address] Dr. Peewee Russell Urea nitrogen/Creatinine [Mass ratio] 21.3 mg/mg Normal [facility] Comment on above: Performed By: #### L IPID CMP, TSH #### [facility] [address] [place] [address] Dr. Peewee Russell TSHon 03-25-2022 TSH 1.754 uIU/mL Normal 0.358-3.740 [facility] Comment on above: Performed By: #### L JUAQUIN CLAIRE, TSH #### [facility] [address] [place] [address] Dr. Peewee Russell VIT B12 AND FOLATEon 023 Cobalamin (Vitamin B12) [Mass/Vol] 1002.0 pg/mL Critically high 193.0-986.0 [facility] Comment on above: Performed By: #### L FLORENCEID CMP, TSH #### [facility] [address] [place] [address] Dr. Peewee Russell FOLATE 16.00 ng/mL Normal 8.60-58.90 [facility] Comment on above: Performed By: #### L DAKOTAH CMP, TSH #### [facility] [address] [place] [address] Dr. Peewee Russell FOLATE ([facility])on 2 Folate 7.8 ng/mL Normal >3.0 [facility] Comment on above: Result Comment: A se rum folate concentration of less than 3.1 ng/mL is considered to represent clinical deficiency. Performed By: #### L IPID CMP, TSH #### [facility] [address] [place] [address] Dr. Peewee Russell CBC AUTO DIFFon 09-10-2021 BASO # 0.0 103/ul Normal 0.0-0.1 [facility] Comment on above: Performed By: #### C BC #### [facility] [address] [place] [address] Dr. Peewee Russell Basophils/100 WBC (Bld) 0.5 % Normal 0.2-2.0 [facility] Comment on above: Performed By: #### C BC #### [facility] [address] [place] [address] Dr. Peewee Russell EO # 0.1 103/ul Normal 0.0-0.7 [facility] Comment on above: Performed By: #### C BC #### [facility] [address] [place] [address] Dr. Peewee Russell Eosinophils/100 WBC (Bld) 1.3 % Normal 0.9-7.0 [facility] Comment on above: Performed By: #### C BC #### [facility] [address] [place] [address] Dr. Peewee Russell Erythrocyte distribution width (RBC) [Ratio] 13.3 % Normal 11.0-15.0 [facility] Comment on above: Performed By: #### C BC #### [facility] [address] [place] [address] Dr. Peewee Russell Hematocrit (Bld) [Volume fraction] 42.1 % Normal 42.0-54.0 [facility] Comment on above: Performed By: #### C BC #### [facility] [address] [place] [address] Dr. Peewee Russell Hemoglobin (Bld) [Mass/Vol] 13.9 g/dL Critically low 14.0-18.0 [facility] Comment on above: Performed By: #### C BC #### [facility] [address] [place] [address] Dr. Peewee Russell IG # 0.03 10e3/ul Normal 0.00-0.03 [facility] Comment on above: Performed By: #### C BC #### [facility] [address] [place] [address] Dr. Peewee Russell IG % 0.4 % Normal 0.0-0.5 [facility] Comment on above: Performed By: #### C BC #### [facility] [address] [address] [address] Peewee Russell LYMPH # 1.9 103/ul Normal 1.2-3.8 [facility] Comment on above: Performed By: #### C BC #### [facility] [address] [address] [address] Peewee Russell Lymphocytes/100 WBC (Bld) 23.0 % Normal 20.5-60.0 [facility] Comment on above: Performed By: #### C BC #### [facility] [address] [place] [address] Dr. Peewee Russell MANUAL DIFF REQ NO Normal [facility] Comment on above: Performed By: #### C BC #### [facility] [address] [place] [address] Dr. Peewee Russell MCH (RBC) [Entitic mass] 32.1 pg Normal 25.9-34.0 [facility] Comment on above: Performed By: #### C BC #### [facility] [address] [place] [address] Dr. Peewee Russell MCHC (RBC) [Mass/Vol] 33.0 g/dL Normal 29.9-35.2 [facility] Comment on above: Performed By: #### C BC #### [facility] [address] [place] [address] Dr. Peewee Russell MCV (RBC) [Entitic vol] 97.2 fL Critically high 80.0-94.0 [facility] Comment on above: Performed By: #### C BC #### [facility] [address] [place] [address] Dr. Peewee Russell MONO # 0.6 103/ul Normal 0.3-0.8 [facility] Comment on above: Performed By: #### C BC #### [facility] [address] [place] [address] Dr. Peewee Russell Monocytes/100 WBC (Bld) 7.2 % Normal 1.7-12.0 [facility] Comment on above: Performed By: #### C BC #### [facility] [address] [address] [address] Peewee Russell NEUT # 5.7 103/ul Normal 1.4-6.5 [facility] Comment on above: Performed By: #### C BC #### [facility] [address] [address] [address] Peewee Russell Neutrophils/100 WBC (Bld) 67.6 % Normal 43.0-75.0 [facility] Comment on above: Performed By: #### C BC #### [facility] [address] [address] [address] Peewee Russell Platelet mean volume (Bld) [Entitic vol] 8.9 fL Critically low 9.5-13.5 [facility] Comment on above: Performed By: #### C BC #### [facility] [address] [address] [address] Peewee Russell PLT 239 103/ul Normal 150-450 [facility] Comment on above: Performed By: #### C BC #### [facility] [address] [address] [address] Peewee Russell RBC 4.33 106/ul Critically low 4.70-6.10 [facility] Comment on above: Performed By: #### C BC #### [facility] [address] [address] [address] Peewee Russell WBC 8.4 103/ul Normal 4.0-11.0 [facility] Comment on above: Performed By: #### C BC #### [facility] [address] [address] [address] Peewee Russell GLYCOHEMOGLOBIN A1Con 2021 ADA RECOMMENDATION SEE BELOW Normal [facility] Comment on above: Result Comment: ADA RECOMMENDED LIMIT 4.0 - 6.0 ADA THERAPEUTIC TARGET < 7.0 ACTION SUGGESTED > 7.0 Performed By: #### A 1C #### [facility] [address] [address] [address] Peewee Russell Glucose [Mass/Vol] 108 mg/dL Normal [facility] Comment on above: Performed By: #### A 1C #### [facility] [address] [address] [address] Peewee Russell HbA1c (Bld) [Mass fraction] 5.4 % Normal 4.5-6.2 [facility] Comment on above: Performed By: #### A 1C #### [facility] [address] [address] [address] Peewee Russell LIPID PROFILEon 09-10-2021 CHOL-HDL RATIO NORM SEE BELOW Normal [facility] Comment on above: Result Comment: 3.3 - 4.4 LOW RISK 4.4 - 7.1 AVERAGE RISK 7.1 - 11.0 MODERATE RISK >11.0 HIGH RISK Performed By: #### T SH, LIPID, CMP #### [facility] [address] [address] [address] Peewee Russell Cholesterol [Mass/Vol] 169 mg/dL Normal <=200 [facility] Comment on above: Performed By: #### T SH, LIPID, CMP #### [facility] [address] [address] [address] Peewee Russell Cholesterol in HDL [Mass/Vol] 70 mg/dL Critically high 40-60 [facility] Comment on above: Performed By: #### T SH, LIPID, CMP #### [facility] [address] [address] [address] Peewee Russell Cholesterol in LDL [Mass/Vol] 90.4 mg/dL Normal [facility] Comment on above: Performed By: #### T SH, LIPID, CMP #### [facility] [address] [address] [address] Peewee Russell Cholesterol.total/Ch olesterol in HDL [Mass ratio] 2.4 {ratio} Normal [facility] Comment on above: Performed By: #### T SH, LIPID, CMP #### [facility] [address] [address] [address] Peewee Russell HDL NORMAL > or = 60 mg/dl - LO W CARDIOVASCULAR RISK <40 mg/dl - HIGH CARDIOVASCULAR RISK Normal [facility] Comment on above: Performed By: #### T SH, LIPID, CMP #### [facility] [address] [address] [address] Peewee Russell LDL CALC NORMAL SEE BELOW Normal [facility] Comment on above: Result Comment: <100 mg/dl OPTIMAL 100 - 129 mg/dl NEAR OR ABOVE OPTIMAL 130 - 159 mg/dl BORDERLINE HIGH 160 - 189 mg/dl HIGH >190 mg/dl VERY HIGH Performed By: #### T SH, LIPID, CMP #### [facility] [address] [address] [address] Peewee Russell Triglyceride [Mass/Vol] 43 mg/dL Normal <=150 [facility] Comment on above: Performed By: #### T SH, LIPID, CMP #### [facility] [address] [address] [address] Peewee Russell VLDL CALC 8.6 mg/dL Normal [facility] Comment on above: Performed By: #### T GEORGES, LIPID, CMP #### [facility] [address] [place] [address] Dr. Peewee Russell PROF 14(COMP METB)on 022 Albumin [Mass/Vol] 3.7 g/dL Normal 3.4-5.0 [facility] Comment on above: Performed By: #### T GEORGES, LIPID, CMP #### [facility] [address] [place] [address] Dr. Peewee Russell Albumin/Globulin [Mass ratio] 1.0 {ratio} Normal [facility] Comment on above: Performed By: #### T GEORGES, LIPID, CMP #### [facility] [address] [place] [address] Dr. Peewee Russell ALP [Catalytic activity/Vol] 65 U/L Normal 46-116 [facility] Comment on above: Performed By: #### T SH, LIPID, CMP #### [facility] [address] [place] [address] Dr. Peewee Russell ALT [Catalytic activity/Vol] 29 U/L Normal 16-63 [facility] Comment on above: Performed By: #### T SH, LIPID, CMP #### [facility] [address] [place] [address] Dr. Peewee Russell Anion gap [Moles/Vol] 9.6 mmol/L Normal [facility] Comment on above: Performed By: #### T SH, LIPID, CMP #### [facility] [address] [place] [address] Dr. Peewee Russell AST [Catalytic activity/Vol] 21 U/L Normal 15-37 [facility] Comment on above: Performed By: #### T SH, LIPID, CMP #### [facility] [address] [place] [address] Dr. Peewee Russell Bilirubin [Mass/Vol] 0.5 mg/dL Normal 0.2-1.0 [facility] Comment on above: Performed By: #### T SH, LIPID, CMP #### [facility] [address] [place] [address] Dr. Peewee Russell Calcium [Mass/Vol] 9.0 mg/dL Normal 8.5-10.1 [facility] Comment on above: Performed By: #### T SH, LIPID, CMP #### [facility] [address] [place] [address] Dr. Peewee Russell Chloride [Moles/Vol] 104 mmol/L Normal 98-107 [facility] Comment on above: Performed By: #### T SH, LIPID, CMP #### [facility] [address] [place] [address] Dr. Peewee Russell CO2 [Moles/Vol] 31.0 mmol/L Normal 21.0-32.0 [facility] Comment on above: Performed By: #### T SH, LIPID, CMP #### [facility] [address] [place] [address] Dr. Peewee Russell Creatinine [Mass/Vol] 0.75 mg/dL Normal 0.70-1.30 [facility] Comment on above: Performed By: #### T SH, LIPID, CMP #### [facility] [address] [place] [address] Dr. Peewee Russell EGFR-AF MAURITIAN >60 Normal >=60 [facility] Comment on above: Performed By: #### T SH, LIPID, CMP #### [facility] [address] [place] [address] Dr. Peewee Russell EGFR-NON AF MAURITIAN >60 Normal >=60 [facility] Comment on above: Performed By: #### T GEORGES, LIPID, CMP #### [facility] [address] [place] [address] Dr. Peewee Russell Globulin (S) [Mass/Vol] 3.6 g/dL Normal [facility] Comment on above: Performed By: #### T GEORGES, LIPID, CMP #### [facility] [address] [place] [address] Dr. Peewee Russell Glucose [Mass/Vol] 110 mg/dL Critically high 74-106 [facility] Comment on above: Performed By: #### T GEORGES, LIPID, CMP #### [facility] [address] [place] [address] Dr. Peewee Russell Potassium [Moles/Vol] 4.6 mmol/L Normal 3.5-5.1 [facility] Comment on above: Performed By: #### T GEORGES, LIPID, CMP #### [facility] [address] [place] [address] Dr. Peewee Russell Protein [Mass/Vol] 7.3 g/dL Normal 6.4-8.2 [facility] Comment on above: Performed By: #### T GEORGES, LIPID, CMP #### [facility] [address] [place] [address] Dr. Peewee Russell Sodium [Moles/Vol] 140 mmol/L Normal 136-145 [facility] Comment on above: Performed By: #### T GEORGES, LIPID, CMP #### [facility] [address] [place] [address] Dr. Peewee Russell Urea nitrogen [Mass/Vol] 13.0 mg/dL Normal 7.0-18.0 [facility] Comment on above: Performed By: #### T SH, LIPID, CMP #### [facility] [address] [place] [address] Dr. Peewee Russell Urea nitrogen/Creatinine [Mass ratio] 17.3 mg/mg Normal [facility] Comment on above: Performed By: #### T SH, LIPID, CMP #### [facility] [address] [address] [address] Peewee Russell TSHon 09-10-2021 TSH 1.463 uIU/mL Normal 0.358-3.740 [facility] Comment on above: Performed By: #### T SH, LIPID, CMP #### [facility] [address] [address] [address] Peewee Russell VITAMIN B12on 09-10-2021 Cobalamin (Vitamin B12) [Mass/Vol] 620.0 pg/mL Normal 193.0-986.0 [facility] Comment on above: Performed By: #### V ITB12 #### [facility] [address] [address] [address] Peewee Lynne 08-22-2021 L - -------- Specimen: [id number] Received: 08/22/21 Status: LYNETTE Mckinnon Num: [id number] Spec Type: Surgical Subm Dr: Keith Puente Jr, Tissues: A Duodenum - Biopsy (DUODENUM BX) Procedures: HE Stain/2, Gross/Micro L4 -------- Patient Age/Sex Location Account Attending Physician -------- Jb Vail 75/M [id number] Keith Puente Jr, DO -------- SPEC NUM: [id number] RECD: 08/22/21 STATUS: LYNETTE MCKINNON NUM: [id number] VIET: 08/22/[address] [facility] [address]: Keith Puente Jr, DO ENTERED: 08/22/[address] [facility] [address]: [place] TYPE: Surgical DEPT: S ORDERED: HE [...] Type of Fixative: 10% Neutral Buffered Formalin (KING/YJ) Microscopic Description Two glass slides with H E stained material have been examined. The microscopic findings support the above pathologic diagnosis. CPT Codes 07782 -------- -------- Specimen: [id number] Received: 08/22/21 Status: LYNETTE Mckinnon Num: [id number] Spec Type: Surgical Subm Dr: Keith Puente Jr, DO Tissues: A Duodenum - Biopsy (DUODENUM BX) Procedures: HE Stain/2, Gross/Micro L4 -------- Patient: Jb Vail [id number] (Continued) -------- Signed (signature on file) Vish Alexander MD 08/23/21 1649 Normal [facility] COVID-19 [facility] SARS-CoV-2 (COVID-19) RNA CLARISSE+probe Ql (Unsp spec) Negative Normal Negative [facility] Comment on above: Order Comment: Healt hcare Worker?: N Result Comment: Testing for SARS-CoV-2 by RT-PCR This test was developed and its performance characteristics determined by [employer] and validated at the [facility]. This test has not been FDA [...] is terminated or revoked sooner. PERFORMED BY: [place] [address] PATHOLOGIST MOTOR HOTEL MANAGER MITA PINO M.D. Performed By: #### C OVID 19 [facility] #### [place] [id number] [facility] CT abdomen pelvis w conon CT abdomen pelvis w con [facility] [place] [address] [place] [address] CT Scan Report Signed Patient: Jb Vail MR#: [id number] : 1945 Acct:[id number] Age/Sex: 75 / M ADM Date: 05/15/21 Loc: [facility] Room: Type: [facility] Attending Dr: Keith Puente DO Ordering Provider: [...] Thompson Jr., M.D.05/15/2021 7:39 PM Dictation Location: [place] [address] Transcribed By: [facility] 05/15/211938 Dictated By: Wilmer Thompson Jr, MD 05/15/211625 Signed By: 05/15/211938 Normal [facility] ISTAT XRay CREon 05-15-2021 Creatinine [Mass/Vol] 0.7 mg/dL Normal 0.6-1.3 [facility] Comment on above: Result Comment: ER/E SD physician is notified/shown all ISTAT results. Critical values may be confirmed by laboratory testing if deemed necessary by ER attending doctor. Performed By: #### I SCRE #### [address] Point of Care testing , ISTAT GFR ( > 60 Normal [facility] Comment on above: Result Comment: GFR estimated reference range: According to KDOQI guidelines, <60 ml/min/1.73m2 is sufficient to diagnose a patient with chronic kidney disease. PERFORMED BY: [place] [address] PATHOLOGIST MOTOR HOTEL MANAGER MITA PINO M.D. Performed By: #### I SCRE #### [address] Point of Care testing , ISTAT GFR (Non- Am > 60 Normal [facility] Comment on above: Performed By: #### I SCRE #### [address] Point of Care testing , CNOVon 09-29-2020 CNOV Office Visit (PULMAV ) YAREDJB ([id number]) 1945 M Date Time Provider Department 09/29/20 9:15 AM ADDIS MICHAUD During your visit today, we recorded the following information about you: Pulse Blood pressure Weight 57/minute 138/71 69.4 kg Addis Michaud MD 09/29/2020 4:07 PM Addendum NEW PATIENT OFFICE VISIT Jb Aguilar Yared's PCP is Kun Olvera DO. 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 He had PFTs, about 2 years. He [...] years before he quit. 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 Normal [facility] XR CHEST 2V FRONTAL/LATon XR CHEST [...] rib fractures. IMPRESSION: NO ACUTE RADIOGRAPHIC ABNORMALITY. Emergency Medicine Specialist: PSCB Transcribe Date/Time: Sep 29 2020 9:03A Dictated by : ALY MAHONEY MD This examination was interpreted and the report reviewed and electronically signed by: ALY MAHONEY MD on Sep 29 2020 9:05AM EST [id number] Normal [facility] Vital Signs Date Time Vital Sign Value Performing Clinician Facility 01-20-2024 09:35-0400 Body temperature 97 [degF] [facility] 01-20-2024 09:35-0400 Diastolic blood pressure 86 mm[Hg] [facility] 01-20-2024 09:35-0400 Heart rate 62 /min [facility] 01-20-2024 09:35-0400 SaO2% (BldA) [Mass fraction] 98 % [facility] 01-20-2024 09:35-0400 Systolic blood pressure 126 mm[Hg] [facility] 01-20-2024 08:28-0400 Body height 177.8 cm [facility] 12-17-2023 14:24-0400 Body mass index (BMI) [Ratio] 22.2 kg/m2 [facility] 12-17-2023 14:24-0400 Body temperature 97.5 [degF] [facility] 12-17-2023 14:24-0400 Diastolic blood pressure 84 mm[Hg] [facility] 12-17-2023 14:24-0400 Heart rate 76 /min [facility] 12-17-2023 14:24-0400 Respiratory rate 18 /min [facility] 12-17-2023 14:24-0400 SaO2% (BldA) [Mass fraction] 99 % [facility] 12-17-2023 14:24-0400 Systolic blood pressure 122 mm[Hg] [facility] 12-17-2023 11:58-0400 Body height 177.8 cm [facility] 12-17-2023 11:58-0400 Body weight 70.3 kg [facility] 10-14-2023 08:12-0400 Body height 177.8 cm [facility] 10-14-2023 08:12-0400 Body mass index (BMI) [Ratio] 21.8 kg/m2 [facility] 10-14-2023 08:12-0400 Body temperature 97.3 [degF] [facility] 10-14-2023 08:12-0400 Body weight 68.94 kg [facility] 10-14-2023 08:12-0400 Diastolic blood pressure 76 mm[Hg] [facility] 10-14-2023 08:12-0400 Heart rate 68 /min [facility] 10-14-2023 08:12-0400 SaO2% (BldA) [Mass fraction] 97 % [facility] 10-14-2023 08:12-0400 Systolic blood pressure 126 mm[Hg] [facility] 04-08-2023 08:10-0500 Body height 177.8 cm Keith Atkinson Other [employer] [facility] [employer] Other 04-08-2023 08:10-0500 Body mass index (BMI) [Ratio] 23.53 kg/m2 Keith Atkinson Other [employer] Other 04-08-2023 08:10-0500 Body temperature 97.9 [degF] Keith Atkinson Other [employer] Other 04-08-2023 08:10-0500 Body weight 74.39 kg Keith Atkinson Other [employer] Other 04-08-2023 08:10-0500 Diastolic blood pressure 78 mm[Hg] Keith Atkinson Other [employer] Other 04-08-2023 08:10-0500 Respiratory rate 18 /min Keith Atkinson Other [employer] Other 04-08-2023 08:10-0500 SaO2% (BldA) [Mass fraction] 98 % Keith Atkinson Other [employer] Other 04-08-2023 08:10-0500 Systolic blood pressure 128 mm[Hg] Keith Atkinson Other [employer] Other 01-27-2023 11:09-0500 Blood Pressure Location Moise JOY [facility] 11-06-2023 11:09-0500 Diastolic blood pressure 71 mm[Hg] Moise JOY [facility] 01-27-2023 11:09-0500 Heart rate 70 /min Moise JOY [facility] 01-27-2023 11:09-0500 Respiratory rate 16 /min Moise JOY [facility] 01-27-2023 11:09-0500 Systolic blood pressure 133 mm[Hg] Moise JOY [facility] 10-01-2022 08:10-0400 Body height 177.8 cm Keith Atkinson Other [employer] Other 10-01-2022 08:10-0400 Body mass index (BMI) [Ratio] 21.88 kg/m2 Keith Atkinson Other [employer] Other 10-01-2022 08:10-0400 Body temperature 98.5 [degF] Keith Atkinson Other [employer] Other 10-01-2022 08:10-0400 Body weight 69.17 kg Keith Atkinson Other [employer] Other 10-01-2022 08:10-0400 Diastolic blood pressure 80 mm[Hg] Keith Atkinson Other [employer] Other 10-01-2022 08:10-0400 Respiratory rate 18 /min Keith Atkinson Other [employer] Other 10-01-2022 08:10-0400 SaO2% (BldA) [Mass fraction] 99 % Keith Atkinson Other [employer] Other 10-01-2022 08:10-0400 Systolic blood pressure 124 mm[Hg] Keith Atkinson Other [employer] Other 05-20-2022 09:10-0500 Body height 177.8 cm Keith Atkinson Other [employer] Other 05-20-2022 09:10-0500 Body mass index (BMI) [Ratio] 22.74 kg/m2 Keith Atkinson Other [employer] Other 05-20-2022 09:10-0500 Body temperature 97.5 [degF] Keith Atkinson Other [employer] Other 05-20-2022 09:10-0500 Body weight 71.9 kg Keith Atkinson Other [employer] Other 05-20-2022 09:10-0500 Diastolic blood pressure 84 mm[Hg] Keith Atkinson Other [employer] Other 05-20-2022 09:10-0500 Respiratory rate 18 /min Keith Atkinson Other [employer] Other 05-20-2022 09:10-0500 SaO2% (BldA) [Mass fraction] 98 % Keith Atkinson Other [employer] Other 05-20-2022 09:10-0500 Systolic blood pressure 122 mm[Hg] Keith Atkinson Other [employer] Other 03-28-2022 09:10-0500 Body height 177.8 cm Keith Atkinson Other [employer] Other 03-28-2022 09:10-0500 Body mass index (BMI) [Ratio] 22.67 kg/m2 Keith Atkinson Other [employer] Other 03-28-2022 09:10-0500 Body temperature 98.5 [degF] Keith Atkinson Other [employer] Other 03-28-2022 09:10-0500 Body weight 71.67 kg Keith Atkinson Other [employer] Other 03-28-2022 09:10-0500 Diastolic blood pressure 80 mm[Hg] Keith Atkinson Other [employer] Other 03-28-2022 09:10-0500 Respiratory rate 18 /min Keith Atkinson Other [employer] Other 03-28-2022 09:10-0500 SaO2% (BldA) [Mass fraction] 99 % Keith Margaritaderek Other [employer] Other 03-28-2022 09:10-0500 Systolic blood pressure 118 mm[Hg] Keith Atkinson Other [employer] Other 10-08-2021 15:01-0400 Blood Pressure Location Moise JOY [facility] 10-08-2021 15:01-0400 Diastolic blood pressure 85 mm[Hg] Moise JOY [facility] 10-08-2021 15:01-0400 Heart rate 72 /min Moise JOY [facility] 10-08-2021 15:01-0400 Systolic blood pressure 146 mm[Hg] Moise JOY [facility] [place] 09-13-2021 09:10-0400 Body height 177.8 cm Keith Atkinson Other [employer] Other 09-13-2021 09:10-0400 Body mass index (BMI) [Ratio] 21.88 kg/m2 Keith Atkinson Other [employer] Other 09-13-2021 09:10-0400 Body temperature 97.2 [degF] Keith Atkinson Other [employer] Other 09-13-2021 09:10-0400 Body weight 69.17 kg Keith Atkinson Other [employer] Other 09-13-2021 09:10-0400 Diastolic blood pressure 26 mm[Hg] Keith Atkinson Other [employer] Other 09-13-2021 09:10-0400 Respiratory rate 18 /min Keith Atkinson Other [employer] Other 09-13-2021 09:10-0400 SaO2% (BldA) [Mass fraction] 98 % Keith Atkinson Other [employer] Other 09-13-2021 09:10-0400 Systolic blood pressure 126 mm[Hg] Keith Atkinson Other [employer] Other 05-09-2021 17:00-0500 Body height 177.8 cm Keith Puente Other [employer] Other 05-09-2021 17:00-0500 Body mass index (BMI) [Ratio] 22.24 kg/m2 Keith Puente Other [employer] Other 05-09-2021 17:00-0500 Body weight 70.31 kg Keith Sykesba Other [employer] Other 03-13-2021 09:10-0500 Body height 177.8 cm Keith Atkinson Other [employer] Other 03-13-2021 09:10-0500 Body mass index (BMI) [Ratio] 22.67 kg/m2 Keith Atkinson Other [employer] Other 03-13-2021 09:10-0500 Body temperature 97.4 [degF] Keith Atkinson Other [employer] Other 03-13-2021 09:10-0500 Body weight 71.67 kg Keith Atkinson Other [employer] Other 03-13-2021 09:10-0500 Diastolic blood pressure 80 mm[Hg] Keith Atkinson Other [employer] Other 03-13-2021 09:10-0500 Respiratory rate 18 /min Keith Atkinson Other [employer] Other 03-13-2021 09:10-0500 SaO2% (BldA) [Mass fraction] 99 % Keith Atkinson Other [employer] Other 03-13-2021 09:10-0500 Systolic blood pressure 124 mm[Hg] Keith Atkinson Other [employer] Other Encounters Encounter Date Encounter Type Care Provider Facility Start: 01-20-2024 End: 01-20-2024 [facility] Work Phone: Start: 01-20-2024 End: 01-20-2024 Patient encounter procedure [facility] Physician [facility] [place] Work Phone: Start: 12-18-2023 Non-patient / Non-visit [facility] Physician [facility] [place] Work Phone: Start: 12-17-2023 End: 12-17-2023 ambulatory [facility] Work Phone: Start: 12-17-2023 End: 12-17-2023 Patient encounter procedure [facility] Physician [facility] [place] Work Phone: Start: 10-14-2023 End: 10-14-2023 ambulatory [facility] Work Phone: Start: 10-14-2023 End: 10-14-2023 Patient encounter procedure [facility] [place] Work Phone: Start: 10-09-2023 Non-patient / Non-visit [facility] Physician [facility] [place] Work Phone: Start: 09-19-2023 Non-patient / Non-visit [facility] Physician [facility] [place] Work Phone: Start: 05-12-2023 End: 05-13-2023 ambulatory Moise JOY Facility:[facility] Start: 05-12-2023 End: 05-12-2023 Patient encounter procedure Moise JOY [facility] [place] Start: 04-14-2023 End: 04-14-2023 ambulatory Keith Atkinson Other [employer] Other Start: 04-14-2023 Telephone encounter Keith Atkinson [facility] [place] Start: 04-08-2023 End: 04-08-2023 ambulatory Keith Atkinson Other [employer] Other Start: 04-08-2023 Office outpatient visit 25 minutes Keith Atkinson [facility] [place] Start: 03-10-2023 End: 03-10-2023 ambulatory Keith Atkinson Other [employer] Other Start: 03-10-2023 Telephone encounter Keith Atkinson [facility] [place] Start: 01-27-2023 End: 01-28-2023 ambulatory Moise JOY Facility:[facility] [place] Start: 01-27-2023 End: 01-27-2023 Patient encounter procedure Moise JOY [facility] Start: 01-14-2023 End: 01-15-2023 ambulatory Moise JOY Facility:[facility] Start: 11-28-2022 End: 11-28-2022 ambulatory Keith Atkinson Other [employer] Other Start: 11-28-2022 Telephone encounter Keith Atkinson [facility] [place] Start: 10-11-2022 End: 10-12-2022 ambulatory Moise JOY Facility:[facility] [place] Start: 10-01-2022 End: 10-01-2022 ambulatory Keith Atkinson Other [employer] Other Start: 10-01-2022 Office outpatient visit 25 minutes Keith Atkinson [facility] [place] Start: 09-27-2022 End: 09-27-2022 ambulatory Keith Atkinson Other [employer] Other Start: 09-27-2022 Telephone encounter Keith Atkinson [facility] [place] Start: 06-14-2022 End: 06-14-2022 ambulatory Keith Atkinson Other [employer] Other Start: 06-14-2022 Telephone encounter Keith Atkinson [facility] [place] Start: 05-29-2022 End: 05-29-2022 ambulatory Keith Atkinson Other [employer] Other Start: 05-29-2022 Telephone encounter Keith Atkinson [facility] [place] Start: 05-20-2022 End: 05-20-2022 ambulatory Keith Atkinson Other [employer] Other Start: 05-20-2022 Office outpatient visit 15 minutes Keith Atkinson [facility] [place] Start: 04-05-2022 End: 04-05-2022 ambulatory Keith Atkinson Other [employer] Other Start: 04-05-2022 Telephone encounter Keith Atkinson [facility] [place] Start: 03-28-2022 End: 03-28-2022 ambulatory Keith Atkinson Other [employer] Other Start: 03-28-2022 Office outpatient visit 25 minutes Keith Atkinson [facility] [place] Start: 03-25-2022 End: 03-26-[address] KEITH ATKINSON Facility:[facility] Start: 10-08-2021 End: 10-08-2021 Patient encounter procedure Moise JOY [facility] Start: 10-04-2021 End: 10-05-[address] MOISE JOY Facility:[facility] Start: 09-13-2021 End: 09-13-2021 ambulatory Keith Atkinson Other [employer] Other Start: 09-13-2021 Office outpatient visit 25 minutes Keith Atkinson [facility] [place] Start: 09-10-2021 End: 09-11-[address] KEITH ATKINSON Facility:[facility] Start: 07-20-2021 End: 07-20-2021 ambulatory Keith Puente Other [employer] Other Start: 07-20-2021 Telephone encounter Keith Puente [facility] G[facility] Start: 06-04-2021 End: 06-04-2021 ambulatory Keith Atkinson Other [employer] Other Start: 06-04-2021 Telephone encounter Keith Atkinson [facility] Start: 05-09-2021 End: 05-09-2021 ambulatory Keith Onelba Other [employer] Other Start: 05-09-2021 Office outpatient visit 25 minutes Keith Puente [facility] Gastroenter[facility] Start: 04-04-2021 End: 04-04-2021 ambulatory Keith Atkinson Other [employer] Other Start: 04-04-2021 Telephone encounter Keith Atkinson [facility] Start: 03-28-2021 End: 03-28-2021 ambulatory Keith Atkinson Other [employer] Other Start: 03-28-2021 Telephone encounter Keith Atkinson [facility] Start: 03-27-2021 End: 03-27-2021 ambulatory Keith Atkinson Other [employer] Other Start: 03-27-2021 Telephone encounter Keith Atkinson [facility] Start: 03-13-2021 End: 03-13-2021 ambulatory Keith Atkinson Other [employer] Other Start: 03-13-2021 Office outpatient visit 25 minutes Keith Atkinson [facility] Procedures Date Procedure Procedure Detail Performing Clinician Start: 01-14-2023 Transrectal biopsy o f prostate using ultrasound guidance Moise JOY Start: 10-04-[address] KEITH ATKINSON Comment on above: Performed By: #### P SAD #### [facility] [address] [place] [address] Dr. Peewee Russell Start: 07-24-2017 right elbow removal of hardware Moise JOY Start: 01-15-2017 Open reduction of fr acture of elbow with internal fixation Moise JOY Comment on above: Right elbow Start: 12-26-2011 Transurethral prostatectomy Moise JOY Start: 11-11-2011 Urodynamic studies Kaitlynn JOY Start: 08-07-2010 Ultrasonography guid ed transrectal cryoablation of prostate Moise JOY Start: 03-30-2010 Cystoscopy Moise DUNLAP Arthroscopy Moise JOY Comment on above: Right shoulder lower back surgery Moise JAIMES neck surgery 3 Moise Foster Comment on above: zephyr plate -titani um Right hand third fin cesilia surgery Moise JOY Plan of Treatment Date Care Activity Detail Author Start: 01-30-2024 ambulatory Ambulatory Facility:[facility] Start: 12-17-[address] [facility] Work Phone: Comprehensive metabo lic 2000 panel - Serum or Plasma [facility] Patient referral [facility] Work Phone: XR Chest 2 Views [facility] Immunizations Immunization Date Immunization Notes Care Provider Fa cility 01-20-2023 COVID-19 Vaccine Pfi zer - Documentation Purposes Only Keith Atkinson Other [facility] 01-20-2023 Flu Shot - Documentation Purposes Only Keith Atkinson Other [facility] 01-20-2023 influenza virus vaccine, unspecified formulation Moise JOY [facility] 12-06-2021 influenza virus vaccine, unspecified formulation Moise JOY [facility] 12-06-2021 SARS-CoV-2 (COVID-19 ) [id number] Moise JOY [facility] 12-06-2021 influenza, seasonal, injectable Keith Atkinson Other [facility] 06-29-2021 SARS-CoV-2 (COVID-19 ) mRNA-1273 vaccine Moise JOY [facility] Comment on above: Result Comment: 2022: [id number] 01-23-2021 influenza, seasonal, injectable Keith Atkinson Other [facility] 12-27-2020 influenza virus vaccine, unspecified formulation Moise JOY [facility] 12-27-2020 pneumococcal polysaccharide vaccine, 23 valent Moise JOY [facility] 12-16-2020 COVID-19 Vaccine Moderna - Documentation Purposes Only Keith Atkinson Other [facility] Comment on above: Result Comment: 2022: [id number] 06-14-2020 zoster vaccine recombinant Keith Atkinson Other [facility] 05-30-2020 COVID-19 Vaccine Moderna - Documentation Purposes Only Keith Atkinson Other [facility] 05-01-2020 COVID-19 Vaccine Moderna - Documentation Purposes Only Keith Atkinson Other [facility] 03-21-2020 zoster vaccine recombinant Keith Atkinson Other [facility] 12-23-2019 influenza virus vaccine, unspecified formulation Moise JOY [facility] 12-23-2019 pneumococcal conjuga te vaccine, 13 valent Moise JOY [facility] 12-23-2019 influenza, seasonal, injectable Keith Prieto Other [facility] 12-23-2019 pneumococcal polysaccharide vaccine, 23 valent Keith Atkinson Other [facility] 12-28-2018 influenza virus vaccine, unspecified formulation Moise JOY [facility] 12-22-2018 influenza virus vaccine, unspecified formulation Moise JOY [facility] 12-22-2017 influenza virus vaccine, unspecified formulation Moise JOY [facility] 12-22-2017 influenza, seasonal, injectable Keith Atkinson Other [facility] 10-05-2017 tetanus toxoid, adsorbed Keith Atkinson Other [facility] 01-20-2017 influenza virus vaccine, unspecified formulation Moisesoren JOY [facility] 01-20-2017 pneumococcal polysaccharide vaccine, 23 valent Keith Atkinson Other [facility] 12-23-2016 influenza virus vaccine, unspecified formulation Moise JOY [facility] 12-23-2016 influenza, seasonal, injectable Keith Atkinson Other [facility] 01-10-2016 influenza virus vaccine, unspecified formulation Moise JOY [facility] 12-28-2014 influenza virus vaccine, unspecified formulation Moise JOY [facility] 01-10-2009 influenza, whole Moise INSE ERS [facility] NEGATED: Highlighted row has not occurred!10-08-2021 SARS-CoV-2 mRNA (tozinameran 5y-11y) vaccine [facility]ise [facility] [facility] Payers Date Payer Category Payer Medicare [id number] 2.16.8 [id number] 1957 Medicare [id number] 2. [id number] 1957 Medicare [id number] 1945 Unknown [id number] 2.16.84 [id number] 1945 Unknown [id number] 2.16.84 [id number] 1945 Unknown [id number] 2.16.84 [id number] 1945 Unknown [id number] 2.16.8 [id number] 1945 Unknown [id number] 2.16.8 [id number] 1945 Unknown [id number] 2.16.8 [id number] 1945 Unknown [id number] 2.16.8 [id number] 1947 Unknown [id number] 2.16.8 [id number] Medicare Medicare [id number] 0ea [id number] Self-pay Self Pay [id number] Unknown O [id number] Social History Date Type Detail Facility Unknown if ever smoked [facility] [employer] Other Sex Assigned At [facility] [employer] Other Start: 03-31-2020 Tobacco smoking status Never s moked tobacco (finding) [facility] Start: 01-27-2023 End: 10-14-2023 Tobacco smoking status Ex-smoker (finding) [facility] Tobacco smoking status Never [facility] Start: 1945 Sex Assigned At Male F [facility] Functional Status Date Assessment Result Facility 01-27-2023 Functional Status N/A [facility] 10-08-2021 Functional Status N/A [facility] Clinical Notes 09-29-2020 to 12-17-2023 Note Date & Type Note Facility 12-17-2023 Evaluation note Authored December 17, 2023 3:26pm The above note written by __ _Sarah Deshpande____ acting as human recorder, note dictated by Dr. Esparza .I performed the above HPI, ROS, and Examination. I formulated and dictated the treatment plan and was present for entire encounter. Keith Atkinson D.O. [facility] Work Phone: [phone]) 307-267507-23-2024 Evaluation note* Author Keith Atkinson [facility] Authored October 14, 2023 9:02 am The above note written by __ _Sarah Deshpande____ acting as human recorder, note dictated by Dr. Esparza .I performed the above HPI, ROS, and Examination. I formulated and dictated the treatment plan and was present for entire encounter. Keith Atkinson D.O. [facility] Work Phone: 1(349) 489-771101-16-2024 Evaluation note* Encounter Date Diagnosis Assessment Notes [...] above medication daily as directed. 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 12-19-2022 Hospital Discharge instructions Follow Up Care 12/19/2022 14:25:52 With:DAVE SELF, Moise Bills, URL Address: [facility] [address] , [place] [address]- When:Within 1 Year(s) Comments:w/PSA [facility] 09-07-2023 Evaluation note* Encounter Date Diagnosis Assessment Notes Treatment Notes Treatment Clinical Notes Nov, Anxiety and depression (ICD-10 - F41.8) [facility] [employer] Other 07-11-2023 Evaluation note* Encounter Date Diagnosis [...] I did recommend that he see a patient clerical assistant, and he refuses. He states that he does not feel that he is that bad . 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 His voices that he does not use the Spiriva as directed. We discussed that there are newer medications that can be used to treat his COPD, but they should be given by a patient clerical assistant. He only uses the Spiriva as needed. [...] I did recommend that he see a facility maintenance helper for evaluation to discuss what has been going on and determine what testing needs to be done. He refuses. He does not want the hassle of going to the facility maintenance helper. He states that when he hits the [...] above medication daily as directed. Sep, [facility] [place] 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 therapy (ICD-10 - Z79.899) [facility] Other 03-24-2023 Evaluation note* Encounter Date Diagnosis Assessment Notes Treatment Notes Treatment Clinical Notes May, Thrush (ICD-10 - B37.0) [facility] Other 02-27-2023 Evaluation note* Encounter Date Diagnosis [...] when he is seen in one month. 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 It could be his lungs that are [...] TSH is normal at 1.754. Mar, Other [place] 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 therapy (ICD-10 - Z79.899) Mar, [...] on his lip but it is healing. [facility] Other 07-18-2022 Hospital Discharge instructions Patient Education [...] have oneof these risk factors: ?Being of -[place] descent. ?Having a family history of prostate [...] you: Are older than age 55. Are -[place]. Have a father, brother, or uncle who [...] 12/19/2017 Document Revised: 02/20/2018 Document Reviewed: 12/19/2017 [employer] Patient Education 2019 [employer]. Follow Up Care 07/25/2021 09:55:06 With:DAVE SELF, Moise Bills, URL Address: [facility] [address] [place] [address]- [phone] When:10/08/2022 [facility] Angélica 06-23-2022 Evaluation note* Encounter Date Diagnosis [...] that beyond that he should see a bait man. He should wear a wide brimmed hat, and wear a chapstick with SPF to protect this area from the sun. If he wants to see a bait man he should let me know. If he [...] Continue with above medication as needed. Aug, skilled nursing use of drug (ICD-10 - Z79.899) Aug, [...] a colonoscopy done and nothing was found. [facility] Other 03-14-2022 Evaluation note* Encounter Date Diagnosis Assessment Notes Treatment Notes Treatment Clinical Notes May, COPD (chronic obstructive pulmonary disease) (ICD-10 - J44.9) [facility] Other 02-16-2022 Evaluation note* Encounter Date Diagnosis Assessment Notes Treatment Notes Treatment Clinical Notes Apr, Constipation (ICD-10 - K59.00) RTO 4-6 WEEKS Apr, Abdominal pain (ICD-10 - R10.9) Apr, Nausea (ICD-10 - R11.0) [facility] Other 01-12-2022 Evaluation note* Encounter Date Diagnosis [...] Mar, Other 1:52 PM - 1:58 PM [facility] Other 01-04-2022 Evaluation note* Encounter Date Diagnosis Assessment Notes Treatment Notes Treatment Clinical Notes Mar, Fatigue (ICD-10 - R53.83) Mar, Exposure to COVID-19 virus (ICD-10 - Z20.828) [facility] Other 12-21-2021 Evaluation note* Encounter Date Diagnosis [...] with above medication daily as directed. Feb, skilled nursing use of drug (ICD-10 - Z79.899) Feb, [...] Diego for evaluation next month (Mar 2021). [employer] Other 07-09-2021 NoteHNO ID: [id number] Author: Addis Michaud MD Service: ? Author [...] in the past, he was seeing a [place] patient clerical assistant. He had PFTs, about 2 years. He [...] years before he quit. 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 He went out on [...] Take by mouth once (more content not included)...[facility]07-09-2021 NoteProcedure (PULMAV) JB VAIL ([id number]) 1945 M Date Time Provider Department 09/29/20 8:30 AM PULM LAB PENDING SALE TO [facility] PULMAV During your visit today, we recorded the following information about you: Referring Provider: SELF [200] Allergies As of Date: 09/29/2020 Noted Allergy Reaction PENICILLINS 05/27/2001 2 - Rash SULFA (SULFONAMIDE ANTIBIOTICS) 05/27/2001 2 - Rash Date Reviewed: 09/29/2020 Reviewed by: Barb Lozoya, COMMERCIAL REAL ESTATE ASSISTANT - Fully Assessed Reason for Visit: Spirometry [191] Visit Diagnosis:Dyspnea on exertion [R06.00] Order(s):SPIROMETRY WITH DILATOR IF OBSTRUCTED [2327245] Order #: [id number] Prescriptions as of 09/29/2020 - dicyclomine (BENTYL) [...] R25.9] Encounter Status:Closed by BARB LOZOYA on 09/29/20[facility] 09-29-2020 NoteHNO ID: [id number] Author: Barb Julio RT(R) Service: Radiology Author Type: Collection Agent Type: Progress Notes Filed: 09/29/2020 8:07 AM [...] PERIPHERAL IV DATA: Not applicable SIGNED BY: Barb Julio, RT(R) September 29, 2020 8:07 [facility] App[facility]ments Appointment Date:10/11/2022 08:00:00 AM Scheduled Provider:Moise JOY MD Location:[facility] Appointment Type:URO Office Visit Diagnostic Tests Pending * PSA Total 10/08/21 [facility] evaluation + Plan note Future Appointments Appointment Date:01/30/2024 08:30:00 AM Scheduled Provider:Moise JOY MD Location:[facility] Appointment Type:URO Office Visit Diagnostic Tests Pending * PSA Total 01/27/23 [facility] evaluation + Plan note Future Appointments Appointment Date:01/30/2024 08:30:00 AM Scheduled Provider:Moise JOY MD Location:[facility] Appointment Type:URO Office Visit [facility] evaluation noteNo [employer] Other evaluation note* Diagnosis Onset Date Resolution Status Abdominal pain acute Abscess acute Anemia acute BPH (benign prostatic hyperplasia) acute Chest pain acute Cold sore acute Constipation acute COPD (chronic obstructive pulmonary disease) acute Hyperglycemia acute Hyperlipidemia acute Weight loss acute [facility] Work Phone: [employer] general Narrative - Reported* Type Description Date [...] Dr. Puente 08/22 Hospitalization History see above [facility] Other History general Narrative - Reported* Type [...] Dr. Pressley 08-07-18 Hospitalization History see above [facility] Other Hospital course Narrative No data available for this section [facility] Hospital Discharge instructions No data available for this section [facility] progress note No data available for this section [facility] Summary Purpose Family History Relationship Condition [...] Referred Provider Keith Puente Referred Address [address] [address] ,[place], [place],[address] Referred Provider Specialty Gastroentero logy Referral Priority [...] BPH (benign prostatic hyperplasia) Memory difficulty Vertigo Chief Complaint vertigo lt earache/soreness Reason for Visit BPH (benign prostati c hyperplasia) Memory difficulty Vertigo COPD (chronic obstructive pulmonary disease) Suspicious nevus Vertigo Additional Source Comments (unrecognized sect ion and content) No Status Records FoundNo Status Records FoundNo Status Records FoundNo Status Records FoundNo Status Records Found INFORMATION SOURCE (unrecogn ized section and content) DATE CREATED AUTHOR 09/30/2020 [facility] DATE CREATED AUTHOR AUTHOR'S ORGANIZ ATION 05/07/2021 [facility] DATE CREATED AUTHOR AUTHOR'S ORGANIZ ATION 08/27/2021 [facility] DATE CREATED AUTHOR AUTHOR'S ORGANIZ ATION 04/16/2022 [facility] DATE CREATED AUTHOR AUTHOR'S ORGANIZ ATION 05/14/2023 [facility] REASON FOR VISIT (unrecogniz ed section and content) review labssinus congestion/ weaknessreview labsPCR resultstesting questionrefillPATIENT COMPLAINING OF CONSTIPATION AND BLOOD IN STOOLClinical Acute Illnessreview labsrefillClinicalpossible thrushClinicalClinicalClinical / labreview labsClinicalrefillRefillsreview labsClinical Acute Illness Care Team (unrecognized sect ion and content) Team Status: Active Member Role Status Dates Keith Atkinson DO Primary Care Provider Active Team Status: Inactive Member Role Status Dates Keith Atkinson DO Primary Care Provide r, Attending Provider Active Start: December 17, 2023 End: December 17, 2023 Team Status: Active Member Role Status Dates Keith Atkinson DO Primary Care Provider Active S tart: December 18, 2023 Augie Samsa - [facility] , DO Attending Provider Active Start: December 18, 2023 Team Status: Inactive Member Role Status Blake Atkinson , DO Primary Care Provide r, Attending Provider Active Start: January 20, 2024 End: January 20, 2024 Team Status: Active Member Role Status Blake Atkinson , DO Primary Care Provider Active Team Status: Active Member Role Status Blake Atkinson , DO Primary Care Provider Active S tart: September 19, 2023 Sarah Deshpande LPN Attending Provider Active St art: September 19, 2023 Team Status: Active Member Role Status Blake Atkinson DO Primary Care Provide r, Attending Provider Active Start: October 09, 2023 Team Status: Inactive Member Role Status Blake Atkinson , DO Primary Care Provide r, Attending Provider Active Start: October 14, 2023 End: October 14, 2023 Team Status: Inactive Member Role Status Blake Atkinson DO Primary Care Provide r, Attending Provider Active Start: December 17, 2023 End: December 17, 2023 Team Status: Active Member Role Status Blake Atkinson Primary Care Provider Active S tart: December 18, 2023 Augie Robbie Mari [facility] , DO Attending Provider Active Start: December 18, 2023 Team Status: Inactive Member Role Status Blake Atkinson , DO Primary Care Provide r, Attending Provider Active Start: January 20, 2024 End: January 20, 2024 Goals (unrecognized section and content) Goals may [...] BE BASED ON THE PRIMARY CLINICAL RECORDS. [employer] provides no warranty or guarantee of the accuracy or completeness of information in this document.
[2024-01-22 04:07] LABS: PSA, Free 0.09 ng/mL; Prostate Specific Ag 0.4 ng/mL (0.0-4.0)
== END 2024-01-21 10:13 | disposition home or self-care (01) ==
LOC: LAB 10:12
PROVIDERS: PCP Family Medicine; Visit Provider Urology
DX: R97.20 Elevated prostate specific antigen [PSA] (principal)
CPT/HCPCS: 36415; 84153; 84154

== ENCOUNTER 2024-03-25 14:01 | Outpatient (RCR) | payer MEDICARE, SELFPAY | END 2024-04-03 08:53 | disposition home or self-care (01) | LOC: PT 14:01 | PROVIDERS: PCP Family Medicine; Visit Provider Family Medicine | DX: H81.13 Benign paroxysmal vertigo, bilateral (principal) | CPT/HCPCS: 97163 ==

== ENCOUNTER 2024-04-09 10:40 | Outpatient (OUT) | payer MEDICARE, SELFPAY ==
[2024-04-09 10:55] LABS: Basophils Percent Auto 0.3 % (0.2-2.0); Eosinophils Absolute Auto 0.1 10^3/uL (0.0-0.7); Eosinophils Percent Auto 1.4 % (0.9-7.0); Hematocrit 41.4 % (42.0-54.0); Hemoglobin 13.8 g/dL (14.0-18.0); Immature Granulocytes Abs Auto 0.02 10^3/uL (0.00-0.03); Immature Granulocytes Pct Auto 0.3 % (0.0-0.5); Lymphocytes Absolute Auto 1.6 10^3/uL (1.2-3.8); Lymphocytes Percent Auto 24.4 % (20.5-60.0); Mean Corpuscular HGB Conc 33.3 g/dL (29.9-35.2); Mean Corpuscular Hemoglobin 31.6 pg (25.9-34.0); Mean Corpuscular Volume 94.7 fL (80.0-94.0); Mean Platelet Volume 9.1 fL (9.5-13.5); Monocytes Absolute Auto 0.5 10^3/uL (0.3-0.8); Monocytes Percent Auto 7.9 % (1.7-12.0); Neutrophils Absolute Auto 4.3 10^3/uL (1.4-6.5); Neutrophils Percent Auto 65.7 % (43.0-75.0); Platelet Count 219 10^3/uL (150-450); Red Blood Count 4.37 10^6/uL (4.70-6.10); Red Cell Distribution Width 12.8 % (11.0-15.0); White Blood Count 6.6 10^3/uL (4.0-11.0)
--- OUTSIDE RECORDS SUMMARY | 2024-04-09 10:58 | XMS_ITS | CCD ---
Author Organization [facility] Care Team Providers Care Data Modeler Name Role Phone Keith Atkinson Unavailable Keith Puente Unavailable Keith Atkinson Primary Care Physician [phone] Teetee Gonzalez Unavailable Unavailable CHINA, DR PARKER Admitting Unavailable GIRDEREK, DR PARKER Attending Unavailable GIRDEREK, DR PARKER Consulting Unavailable GIRVIN, DR PARKER Primary Care Unavailable JOY, DR GANN Attending Unavailable JOY, DR GANN Consulting Unavailable JOY, DR GANN Admitting Unavailable GIRVIN, DR PARKER Primary Care Unavailable GIRVIN, DR PARKER Consulting Unavailable GIRVIN, DR PARKER Primary Care Unavailable GIRVIN, DR PARKER Admitting Unavailable GIRVIN, DR PARKER Attending Unavailable GIRVIN, DR PARKER Consulting Unavailable ARELIS CARMONA Attending Unavailab le Moise JOY Attending Unavailable BENITA, Moise Bills Attending Unavailable Allergies Allergy Classification Reported Allergen(s) Allergy Type Date of Onset Reaction(s) Facility (20 sources) Penicillin; Translations: [penicillin] Drug Allergy hives [facility] (20 sources) Sulfacetamide Drug Allergy 4 [facility] (9 sources) Penicillins; Translations: [penicillins] Drug allergy 4 Hives, Unknown Reaction, hives [facility] (6 sources) Sulfonamides (Antibiotic); Translations: [sulfa drugs] Drug allergy [facility] (1 source) Sulfonamides (Antibiotic) Drug allergy (disorder) [facility] (3 sources) Sulfonamides (Antibiotic) Allergy to substance 4 Unknown Reaction [facility] Medications Current Medications Medication Drug Class(es) Dates Sig (Normalized) Sig (Original) [id number] 200 actuat albuterol 0.09 mg/actuat metered dose [...] week(s), # 56 tab(s), Refills(s) 0, Pharmacy: [facility]/pharmacy #[id number], 177, cm, 01/27/23 11:11:00 EST, Height/Length Dosing, 74, kg, 01/27/23 11:11:00 EST, Weight Dosing Start Date: 05/12/23 Stop Date: 06/09/23 Status: Ordered Coenzyme Q10 200 mg oral capsule (5 sources) Start: 07-11-2017 take 1 capsule by mouth once daily Coenzyme Q10 200 mg oral capsule 1cap, Oral, Daily, Refills(s) 0, High cholesterol Start Date: 07/11/17 Status: Ordered dicyclomine hydrochloride 20 mg oral tablet (12 sources) Anticholinergic Start: 03-29-2019 take 1 mg by mouth four times daily dicyclomine 20 mg Tab mg tab(s), Oral, QID, Refills(s) 0 Start Date: 03/29/19 Status: Ordered Dicyclomine HCl 20 MG 1 tablet Orally q6-8 hrs prn Active docusate sodium 50 mg / sennosides, shelter 8.6 mg oral tablet (3 sources) Start: 05-09-2021 take 2 tablets by mouth every twelve hours Senokot S 8.6-50 MG 2 TABLETS Orally TWICE A DAY for 30 day(s) Apr, Active doxycycline hyclate 100 mg oral capsule (4 sources) Tetracycline-clas s Drug Start: 04-04-2021 take 1 capsule by mouth every twelve hours Doxycycline Hyclate 100 MG 1 capsule Orally Twice a day for 10 day(s) Mar, Active finasteride 5 mg oral tablet (20 sources) 5-alpha Reductase Inhibitor Start: 02-05-2024 take 1 tablet by mouth once daily finasteride 5 mg Tab 5 mg = 1 tab(s), Oral, Daily, # 90 tab(s), Refills(s) 3, Pharmacy: [facility]/pharmacy #[id number], 177, cm, 02/05/24 12:10:00 EST, Height/Length Dosing, 74.4, kg, 02/05/24 12:10:00 EST, Weight Dosing Start Date: 02/05/24 Status: Ordered Start: 08-21-2021 take 1 tablet by trang th once daily finasteride 5 mg Tab 5 mg = 1 tab(s), Oral, Daily, # 90 tab(s), Refills(s) 3, Pharmacy: [facility] 177, cm, 10/11/22 8:05:00 EDT, Height/Length Dosing, 74.4, kg, 10/11/22 8:05:00 EDT, Weight Dosing Start Date: 11/28/22 Status: Ordered Fish Oils (5 sources) Start: 01-10-2017 take 1200 mg by [...] a week meloxicam 15 mg oral tablet (5 sources) Nonsteroidal Anti-inflammatory Drug Start: 03-04-2019 take 1 mg by mouth once daily meloxicam 15 mg oral tablet mg tab(s), Oral, Daily, Refills(s) 0 Start Date: 03/04/19 Status: Ordered metroNIDAZOLE 500 mg oral tablet (1 source) Nitroimidazole Antimicrobial Start: 08-02-2021 take 1 tablet by mouth every twelve hours metroNIDAZOLE 500 MG 1 tablet Orally Twice a day for 10 day(s) July, Active nystatin [id number] unt/ml oral suspension (10 sources) Polyene Antifungal Start: 05-20-2022 Nystatin 356367 UNIT/ML 5 ml (2.5 ml each side of the mouth) Mouth/Throat qid for 7 days Apr, Active Start: 05-20-2022 Nystatin 86770 0 UNIT/ML 5 ml (2.5 ml each side of the mouth) Mouth/Throat qid for 7 days Apr, Active ProAir HFA 108 (90 Base) MCG/ACT (13 sources) Start: 06-07-2019 ProAir HFA 108 (90 Base) MCG/ACT 2 inhalations Inhalation up to 4 times per day May, Active promethazine hydrochloride 25 mg oral tablet (5 sources) Phenothiazine Start: 03-29-2019 take 1 mg by mouth every six hours as needed for nausea promethazine 25 mg Tab mg tab(s), Oral, q6hr, PRN as needed for nausea/vomiting, Refills(s) 0 Start Date: 03/29/19 Status: Ordered simvastatin 40 mg oral tablet (20 sources) HMG-CoA Reductase Inhibitor Start: 05-27-2023 End: 10-14-2023 take 1 tablet [...] times daily January 20, 2024 12:00am Start: 11-17-2023 End: 11-19-2023 take 1 tablet by mouth three times daily Valacyclovir (Valtrex) 500 mg tablet Discontinued 500 MG PO Three times daily November 17, 2023 12:00am November 19, 2023 [...] sources) Serotonin and Norepinephrine Reuptake Inhibitor Start: 09-19-2023 End: 10-14-2023 take 1 capsule by mouth once daily at mealtime Venlafaxine Discontinued 0 .ROUTE .COMPLEX September 19, 2023 8:09am October 14, 2023 8:29am TAKE 1 CAPSULE BY MOUTH DAILY WITH FOOD Start: 03-04-2019 End: 09-19-2023 take 75 mg by mouth once daily Venlafaxine Active 75 M G PO Daily October 14, 2023 8:28am vitamin b12 1 mg extended release oral tablet (8 sources) Vitamin B12 Start: 09-07-2020 take 1 [...] 9:57am Start: 08-02-2021 take 2 tablets by [facility] once daily as needed Dulcolax 5 MG 2 tab Orally Once a day prn July, Active clotrimazole 10 mg oral lozenge (8 sources) Azole Antifungal Start: 05-20-2022 Clotrimazole 10 MG dissolve 1 osvaldo Mouth/Throat five times a day for 7 days Apr, Not-Taking/PRN lubiprostone 0.024 mg oral capsule (5 sources) Chloride Channel Activator Start: 03-30-2019 take 1 capsule by mouth twice daily Amitiza 24 mcg Cap 24 microgram = 1 cap(s), Oral, BID, # 60 cap(s), Refills(s) 0, Pharmacy: [facility]/pharmacy #[id number] Start Date: 03/30/19 Status: Ordered pantoprazole 40 [...] 1 puff(s) by inhalation once daily Tiotropium Reese (Spiriva Respimat) 2.5 mcg/actuation mist Discontinued 2 [...] Resolved: 09-13-2021 Chronic Calculus of urinary tract (5 sources) History of calculus of kidney; Translations: [...] 03-13-2021 Resolved: 09-13-2021 Chronic Diverticulosis and diverticulitis (5 sources) Diverticulitis 01-13-2017 Chronic Esophageal disorders (20 sources) Acid reflux; Translations: [Gastro-esophageal reflux disease without esophagitis] Onset: 09-13-2021 Resolved: 09-13-2021 Chronic Gastrointestinal hemorrhage (20 sources) Melena; Translations: [Melena] Episodic Genitourinary symptoms and ill-defined conditions (10 sources) Blood in urine; Translations: [Gross hematuria] Onset: 01-27-2023 03-19-2019 Episodic Hyperplasia of prostate (20 sources) Benign prostatic hyperplasia; Translations: [Benign prostatic hyperplasia without lower urinary tract symptoms] Onset: 03-13-2021 Resolved: 09-13-2021 Chronic Intestinal infection (5 sources) Bacterial overgrowth syndrome 03-29-2019 Episodic Mycoses (2 sources) Candidal stomatitis Episodic Nonspecific chest pain (6 sources) Chest pain, unspecified; Translations: [Chest pain] Episodic Other aftercare (6 sources) 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; Translations: [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] Onset: 03-13-2021 Resolved: 09-13-2021 Episodic Other and unspecified benign neoplasm (1 source) Neoplasm and/or hamartoma; Translations: [Melanocytic nevi, unspecified] 01-20-2024 Episodic Other and unspecified benign neoplasm (1 source) Melanocytic nevi, unspecified; Translations: [Neoplasm of uncertain behavior of skin] 01-20-2024 Episodic Other diseases of kidney and ureters (1 source) Urinary tract obstruction; Translations: [Other obstructive and reflux uropathy] Onset: 02-05-2024 Episodic Other gastrointestinal disorders (20 sources) Irritable bowel syndrome; Translations: [Irritable bowel syndrome without diarrhea] 03-29-2019 Chronic Other gastrointestinal disorders (14 sources) Irritable bowel syndrome characterized by constipation; Translations: [Irritable bowel syndrome with constipation] Chronic Other gastrointestinal disorders (5 sources) Chronic idiopathic constipation 03-29-2019 Chronic Other gastrointestinal disorders (20 sources) Constipation; Translations: [Constipation, unspecified] 08-22-2021 Episodic Other gastrointestinal disorders (6 sources) Constipation, unspecified; Translations: [Constipation, unspecified] Onset: 03-13-2021 Resolved: 09-13-2021 Episodic Other gastrointestinal disorders (5 sources) Dysphagia 03-29-2019 Episodic Other lower respiratory [...] conditions (not mental disorders or infectious disease) (12 sources) Abnormal results of thyroid function studies; [...] of mental health and substance abuse codes (5 sources) Ex-smoker 03-29-2019 Episodic Skin and subcutaneous tissue infections (5 sources) Abscess; Translations: [Cutaneous abscess, unspecified] 10-14-2023 Episodic Spondylosis; intervertebral disc disorders; other back problems (20 sources) Degeneration of lumbar intervertebral disc; Translations: [Other intervertebral disc degeneration, lumbar region] Chronic Unclassified (5 sources) Patient encounter status 03-29-2019 Viral infection [...] Test Name Value Interpretation Reference Range Facility Reminderson 02-13-2024 Reminders Reminders From: Amy Linn To: EU - Administrative; Sent: 02/13/2024 12:16:44 EST Show up: 05/08/2025 12:16:00 EST Subject: Need 2 yr recheck /Jan 2026 Due Date/Time: 02/18/2026 12:16:00 EST Reminder/Recall Patient will need a 2 yr recheck with PSA with either PRW or REMBERTO. Normal [facility] Urology Office/Clinic Noteon 02-09-2024 Urology Office/Clinic Note Urology Office/Clinic Note Chief Complaint elevated PSA, BPH with obstruction HPI Staff 78 year old male here for 1 year with PSA Previous DX: elevated PSA, BPH w/LUTS, gross hematuria and H/O kidney stones S/P TRUS/BX 01/14/23 Pt. taking Finasteride 5mg qd PSA (Finasteride Effect) 02/28/20 - 0.84 (1.68) 10/04/21 - 0.33 (0.66) 10/05/22 - 2.33 (4.66) 01/21/24 - 0.4 & 22.5% (0.8) Dysuria: denies Incomplete bladder emptying: less than 1 in 5x Hematuria: denies Frequency: less than half the time Urgency: almost always Nocturia: 2x Stream: not weak at all, straining and intermittency less than 1 in 5x Leaking: denies Post void dripping: denies Wearing pads/ Depends: denies Urge incontinence: denies Stress incontinence: denies Incontinence without Sensory Awareness: denies Abdominal pain: LLQ Flank pain: denies Sexual complaints: denies Review of Systems PHQ Score Initial Depression Screen Score: 0 SCORE no fever, chills, malaise, myalgia. no rash/lesions. no chest pain, palpitations, or SOB. no abdominal pain, nausea, vomiting. no unilateral calf swelling, redness, pain Physical Exam Vitals & Measurements T: 37 ???C(Temporal Artery) HR: 72(Peripheral) RR: 18 BP: 131/77 HT: 70 in HT: 177 cm WT: 74.4 kg WT: 164.024 lb BMI: 23.75 General: nontoxic, NAD Mouth: moist mucosa Lungs: normal respiratory effort Cardio: regular rate, good distal perfusion Abdomen: nondistended, no suprapubic distention or tenderness, no CVA tenderness Neurologic: Grossly normal Skin: No rashes or suspicious lesions Assessment/Plan unable to give UA today. 1. BPH with obstruction/lower urinary tract symptoms (N40.1: Benign prostatic hyperplasia with lower urinary tract symptoms) IPSS 15 QOL 2 Pt is taking finasterideand is mostly satisfiedwith overall symptom control. Pt is experiencing noside effects. We discussed current dose and optional changes: adding alpha-raghavendra I discussed with the patient the different surgical treatment options for bladder outlet obstruction including TURP, Rezum, and Urolift. The patient prefers to continue the BPH medications at this time. Pt prefers to continue current regimen with no changes at this time. Has a lot of nocturia in the summer - attributes this to beer intake in evenings. In winter things stabilize. Not bothersome to pt. Did discuss bladder irritants today. Requesting longer f/u since he's so stable. Ok for 2 yr f/u. 2. Elevated PSA (R97.20: Elevated prostate specific antigen [PSA]) PSA (Finasteride Effect) 02/28/20 - 0.84 (1.68) 10/04/21 - 0.33 (0.66) 10/05/22 - 2.33 (4.66) MRI declined. S/p TRUS/BX 01/14/23 - path showed was benign. 01/21/24 - 0.4 (0.8) Low and well within normal range. I discussed stopping the PSA checks, due to the PSA stability, and his advancing age. He is aware that his chances of developing and having problems from prostate cancer at this point are quite low. He agrees to stop the PSA checks. Follow-up With When Contact Information KRISTINE INFANTE, TL Mackey, URL In 2 years [address] [place] [address] Additional Instructions: Patient Education Benign Prostatic Hyperplasia Problem List/Past Medical History Ongoing Bacterial overgrowth syndrome Chronic idiopathic constipation Dysphagia Elevated PSA Former [...] refills Fish Oil, 1200 mg, Oral, Daily meloxicam 15 mg oral tablet, Oral, Daily promethazine 25 mg Tab, Oral, q6hr, PRN simvastatin, 40 mg, Oral, Once a day (at bedtime) Valtrex, 500 mg, Oral, Daily venlafaxine 75 mg Cap-ER, 75 mg= 1 cap(s), Oral, Daily Vitamin B-12, 100 mcg, Oral, MonFri Allergies penicillins (Hives) sulfa drugs (Hives) Social History Alcohol - Low Risk, 10/06/2018 Current. Beer. 3-5 times per week., 02/05/2024 Substance Abuse - Denies Substance Abuse, 01/15/2017 Never., 02/05/2024 Tobacco - Denies Tobacco Use, 03/29/2019 Former smoker, quit more than 30 days ago Tobacco Use:. Cigarettes, Household tobacco concerns: No. Yes, 02/05/2024 Family History Cancer: Father. Ca (more content not included)... Normal [facility] Comment on above: Result Comment: Elec tronically Signed By: TL CARMONA PA-C\Date and Time Signed: 02/09/24 15:03 EST Hemoglobin [Mass/volume] in Bloodon 12-18-2023 Hemoglobin (Bld) [Mass/Vol] 13.5 g/dL Low 14.0-18.0 [facility] Basophils Auto (Bld) [#/Vol] on 10-09-2023 Basophils (Bld) [#/Vol] 0.0 10 3/uL 0.0-0.1 [facility] Basophils/100 WBC Auto (Bld) on 10-09-2023 Basophils/100 WBC (Bld) 0.4 % 0.2-2.0 [facility] Cholesterol in LDL Calc [Mas s/Vol]on 10-09-2023 Cholesterol in LDL [Mass/Vol] 111.0 mg/dL [facility] Comment on above: <100 mg/dl [id number] 0-129 mg/dl NEAR OR ABOVE [id number] mg/dl BORDERLINE [id number] mg/dl HIGH>190 mg/dl VERY HIGH Cholesterol in VLDL Calc [Ma ss/Vol]on 10-09-2023 Cholesterol in VLDL [Mass/Vol] 18.8 mg/dL [facility] Eosinophils/100 WBC Auto (Bl d)on 10-09-2023 Eosinophils/100 WBC (Bld) 1.1 % 0.9-7.0 [facility] Erythrocyte distribution wid th Auto (RBC) [Ratio]on 10-09-2023 Erythrocyte distribution width (RBC) [Ratio] 13.1 % 11.0-15.0 [facility] Estimated glomerular filtrat ion rate (GFR) non- Americanon 10-09-2023 GFR/1.73 sq M.predicted among non-blacks MDRD (S/P/Bld) [Vol rate/Area] mL/min/{1.73_m2} >=60 [facility] Globulin Calc (S) [Mass/Vol] on 10-09-2023 Globulin (S) [Mass/Vol] 3.7 g/dL [facility] Glucose mean value [Mass/vol ume] in Blood Estimated from glycated hemoglobinon 10-09-2023 Average glucose Estimated from glycated hemoglobin (Bld) [Mass/Vol] 108 mg/dL [facility] Hematocrit Auto (Bld) [Volum e fraction]on 10-09-2023 Hematocrit (Bld) [Volume fraction] 42.4 % 42.0-54.0 [facility] Hemoglobin [Mass/volume] in Bloodon 10-09-2023 Hemoglobin (Bld) [Mass/Vol] 13.7 g/dL Low 14.0-18.0 [facility] Laboratory - Chemistry and C hemistry - challengeon 10-09-2023 Albumin [Mass/Vol] 3.6 g/dL 3.4-5.0 [facility] ALP [Catalytic activity/Vol] 63 U/L 46-116 [facility] ALT [Catalytic activity/Vol] 31 U/L 16-63 [facility] AST [Catalytic activity/Vol] 24 U/L 15-37 [facility] Bilirubin [Mass/Vol] 0.7 mg/dL 0.2-1.0 [facility] Calcium [Mass/Vol] 9.1 mg/dL 8.5-10.1 [facility] Chloride [Moles/Vol] 103 mmol/L 98-107 [facility] Cholesterol [Mass/Vol] 192 mg/dL <=200 [facility] Cholesterol in HDL [Mass/Vol] 63 mg/dL High 40-60 [facility] Comment on above: > or =60 mg/dl - LOW CARDIOVASCULAR RISK<40 mg/dl - HIGH CARDIOVASCULAR RISK CO2 [Moles/Vol] 28.9 mmol/L 21.0-32.0 [facility] Cobalamin (Vitamin B12) [Mass/Vol] 761.0 pg/mL 193.0-986.0 [facility] Creatinine [Mass/Vol] 0.79 mg/dL 0.70-1.30 [facility] GFR/1.73 sq M.predicted MDRD (S/P/Bld) [Vol rate/Area] mL/min/{1.73_m2} >=60 [facility] Glucose [Mass/Vol] 104 mg/dL 74-106 [facility] Potassium [Moles/Vol] 4.5 mmol/L 3.5-5.1 [facility] Protein [Mass/Vol] 7.3 g/dL 6.4-8.2 [facility] Sodium [Moles/Vol] 138 mmol/L 136-145 [facility] Triglyceride [Mass/Vol] 94 mg/dL <=150 [facility] TSH Qn 1.603 m[IU]/L 0.358-3.740 [facility] Urea nitrogen [Mass/Vol] 15.0 mg/dL 7.0-18.0 [facility] Urea nitrogen/Creatinine [Mass ratio] 19.0 mg/mg [facility] Laboratory - Hematology and Cell countson 10-09-2023 HbA1c (Bld) [Mass fraction] 5.4 % 4.5-6.2 [facility] Comment on above: ADA RECOMMENDED LIMI T 4.0 - 6.0ADA THERAPEUTIC TARGET < 7.0ACTION SUGGESTED> 7.0 Immature granulocytes/100 WBC (Bld) 0.3 % 0.0-0.5 [facility] Leukocytes [#/volume] correc greg for nucleated erythrocytes in Blood by Automated counon 10-09-2023 WBC corrected for nucl RBC Auto (Bld) [#/Vol] 7.9 10 3/uL 4.0-11.0 [facility] Lymphocytes Auto (Bld) [#/Vo l]on 10-09-2023 Lymphocytes (Bld) [#/Vol] 2.1 10 3/uL 1.2-3.8 [facility] Lymphocytes/100 WBC Auto (Bl d)on 10-09-2023 Lymphocytes/100 WBC (Bld) 25.9 % 20.5-60.0 [facility] MCH Auto (RBC) [Entitic mass ]on 10-09-2023 MCH (RBC) [Entitic mass] 31.4 pg 25.9-34.0 [facility] MCHC Auto (RBC) [Mass/Vol]on 10-09-2023 MCHC (RBC) [Mass/Vol] 32.3 g/dL 29.9-35.2 [facility] MCV Auto (RBC) [Entitic vol] on 10-09-2023 MCV (RBC) [Entitic vol] 97.0 fL High 80.0-94.0 [facility] Monocytes Auto (Bld) [#/Vol] on 10-09-2023 Monocytes (Bld) [#/Vol] 0.7 10 3/uL 0.3-0.8 [facility] Monocytes/100 WBC Auto (Bld) on 10-09-2023 Monocytes/100 WBC (Bld) 9.1 % 1.7-12.0 [facility] Neutrophils Auto (Bld) [#/Vo l]on 10-09-2023 Neutrophils (Bld) [#/Vol] 5.0 10 3/uL 1.4-6.5 [facility] Neutrophils/100 WBC Auto (Bl d)on 10-09-2023 Neutrophils/100 WBC (Bld) 63.2 % 43.0-75.0 [facility] No Panel Informationon 10-08 Eosinophils # (Auto) 0.1 10 3/uL 0.0-0.7 [facility] Folate 10.90 ng/mL 8.60-58.90 [facility] Immature Granulocyte # (Auto) 0.02 10 3/uL 0.00-0.03 [facility] Platelet mean volume Auto (B ld) [Entitic vol]on 10-09-2023 Platelet mean volume (Bld) [Entitic vol] 9.1 fL Low 9.5-13.5 [facility] Platelets Auto (Bld) [#/Vol] on 10-09-2023 Platelets (Bld) [#/Vol] 234 10 3/uL 150-450 [facility] RBC Auto (Bld) [#/Vol]on RBC (Bld) [#/Vol] 4.37 10 6/uL Low 4.70-6.10 [facility] Serum or plasma albumin/glob ulin mass ratioon 10-09-2023 Albumin/Globulin [Mass ratio] 1.0 {ratio} [facility] Serum or plasma anion gap de terminationon 10-09-2023 Anion gap [Moles/Vol] 10.6 mmol/L [facility] Serum or plasma total choles terol/high density lipoprotein (HDL) cholesterol mass melly 10-09-2023 Cholesterol.total/Ch olesterol in HDL [Mass ratio] 3.0 {ratio} [facility] Comment on above: 3.3 - 4.4 LOW RISK4. 4 - 7.1 AVERAGE RISK7.1 - 11.0 MODERATE RISK>11.0 HIGH RISK CBC AUTO DIFFon 03-25-2022 BASO # 0.0 103/ul Normal 0.0-0.1 [facility] Comment on above: Performed By: #### L IPID, CMP, TSH #### [facility] [address] [address] [address] Peewee Russell Basophils/100 WBC (Bld) 0.3 % Normal 0.2-2.0 [facility] Comment on above: Performed By: #### L IPID, CMP, TSH #### [facility] [address] [address] [address] Peewee Russell EO # 0.1 103/ul Normal 0.0-0.7 [facility] Comment on above: Performed By: #### L IPID, CMP, TSH #### [facility] [address] [address] [address] Peewee Russell Eosinophils/100 WBC (Bld) 1.3 % Normal 0.9-7.0 [facility] Comment on above: Performed By: #### L IPID, CMP, TSH #### [facility] [address] [address] [address] Peewee Russell Erythrocyte distribution width (RBC) [Ratio] 12.4 % Normal 11.0-15.0 [facility] Comment on above: Performed By: #### L IPID, CMP, TSH #### [facility] [address] [address] [address] Peewee Russell Hematocrit (Bld) [Volume fraction] 43.2 % Normal 42.0-54.0 [facility] Comment on above: Performed By: #### L IPID, CMP, TSH #### [facility] [address] [address] [address] Peewee Russell Hemoglobin (Bld) [Mass/Vol] 14.3 g/dL Normal 14.0-18.0 [facility] Comment on above: Performed By: #### L IPID, CMP, TSH #### [facility] [address] [place] [address] Dr. Peewee Russell IG # 0.02 10e3/ul Normal 0.00-0.03 [facility] Comment on above: Performed By: #### L IPID, CMP, TSH #### [facility] [address] [place] [address] Dr. Peewee Russell IG % 0.3 % Normal 0.0-0.5 [facility] Comment on above: Performed By: #### L IPID, CMP, TSH #### [facility] [address] [place] [address] Dr. Peewee Russell LYMPH # 2.4 103/ul Normal 1.2-3.8 [facility] Comment on above: Performed By: #### L IPID, CMP, TSH #### [facility] [address] [place] [address] Dr. Peewee Russell Lymphocytes/100 WBC (Bld) 30.0 % Normal 20.5-60.0 [facility] Comment on above: Performed By: #### L IPID, CMP, TSH #### [facility] [address] [place] [address] Dr. Peewee Russell MANUAL DIFF REQ NO Normal [facility] Comment on above: Performed By: #### L IPID, CMP, TSH #### [facility] [address] [place] [address] Dr. Peewee Russell MCH (RBC) [Entitic mass] 31.0 pg Normal 25.9-34.0 [facility] Comment on above: Performed By: #### L IPID, CMP, TSH #### [facility] [address] [place] [address] Dr. Peewee Russell MCHC (RBC) [Mass/Vol] 33.1 g/dL Normal 29.9-35.2 [facility] Comment on above: Performed By: #### L IPID, CMP, TSH #### [facility] [address] [place] [address] Dr. Peewee Russell MCV (RBC) [Entitic vol] 93.7 fL Normal 80.0-94.0 [facility] Comment on above: Performed By: #### L IPID, CMP, TSH #### [facility] [address] [place] [address] Dr. Peewee Russell MONO # 0.7 103/ul Normal 0.3-0.8 [facility] Comment on above: Performed By: #### L IPID, CMP, TSH #### [facility] [address] [place] [address] Dr. Peewee Russell Monocytes/100 WBC (Bld) 8.4 % Normal 1.7-12.0 [facility] Comment on above: Performed By: #### L IPID, CMP, TSH #### [facility] [address] [place] [address] Dr. Peewee Russell NEUT # 4.7 103/ul Normal 1.4-6.5 [facility] Comment on above: Performed By: #### L IPID, CMP, TSH #### [facility] [address] [place] [address] Dr. Peewee Russell Neutrophils/100 WBC (Bld) 59.7 % Normal 43.0-75.0 [facility] Comment on above: Performed By: #### L IPID, CMP, TSH #### [facility] [address] [place] [address] Dr. Peewee Russell Platelet mean volume (Bld) [Entitic vol] 8.4 fL Critically low 9.5-13.5 [facility] Comment on above: Performed By: #### L IPID, CMP, TSH #### [facility] [address] [place] [address] Dr. Peewee Russell PLT 208 103/ul Normal 150-450 [facility] Comment on above: Performed By: #### L IPID, CMP, TSH #### [facility] [address] [place] [address] Dr. Peewee Russell RBC 4.61 106/ul Critically low 4.70-6.10 [facility] Comment on above: Performed By: #### L IPID, CMP, TSH #### [facility] [address] [address] [address] Peewee Russell WBC 7.9 103/ul Normal 4.0-11.0 [facility] Comment on above: Performed By: #### L IPID, CMP, TSH #### [facility] [address] [address] [address] Peewee Russell GLYCOHEMOGLOBIN A1Con 2022 ADA RECOMMENDATION SEE BELOW Normal [facility] Comment on above: Result Comment: ADA RECOMMENDED LIMIT 4.0 - 6.0 ADA THERAPEUTIC TARGET < 7.0 ACTION SUGGESTED > 7.0 Performed By: #### L IPID, CMP, TSH #### [facility] [address] [address] [address] Peewee Russell Glucose [Mass/Vol] 108 mg/dL Normal [facility] Comment on above: Performed By: #### L IPID, CMP, TSH #### [facility] [address] [address] [address] Peewee Russell HbA1c (Bld) [Mass fraction] 5.4 % Normal 4.5-6.2 [facility] Comment on above: Performed By: #### L IPID, CMP, TSH #### [facility] [address] [address] [address] Peewee Russell LIPID PROFILEon 03-25-2022 CHOL-HDL RATIO NORM SEE BELOW Normal [facility] Comment on above: Result Comment: 3.3 - 4.4 LOW RISK 4.4 - 7.1 AVERAGE RISK 7.1 - 11.0 MODERATE RISK >11.0 HIGH RISK Performed By: #### L IPID, CMP, TSH #### [facility] [address] [address] [address] Peewee Russell Cholesterol [Mass/Vol] 188 mg/dL Normal <=200 [facility] Comment on above: Performed By: #### L IPID, CMP, TSH #### [facility] [address] [address] [address] Peewee Russell Cholesterol in HDL [Mass/Vol] 65 mg/dL Critically high 40-60 [facility] Comment on above: Performed By: #### L IPID, CMP, TSH #### [facility] [address] [address] [address] Peewee Russell Cholesterol in LDL [Mass/Vol] 107.6 mg/dL Normal [facility] Comment on above: Performed By: #### L IPID, CMP, TSH #### [facility] [address] [address] [address] Peewee Russell Cholesterol.total/Ch olesterol in HDL [Mass ratio] 2.9 {ratio} Normal [facility] Comment on above: Performed By: #### L IPID, CMP, TSH #### [facility] [address] [address] [address] Peewee Russell HDL NORMAL > or = 60 mg/dl - LO W CARDIOVASCULAR RISK <40 mg/dl - HIGH CARDIOVASCULAR RISK Normal [facility] Comment on above: Performed By: #### L IPID, CMP, TSH #### [facility] [address] [address] [address] Peewee Russell LDL CALC NORMAL SEE BELOW Normal [facility] Comment on above: Result Comment: <100 mg/dl OPTIMAL 100 - 129 mg/dl NEAR OR ABOVE OPTIMAL 130 - 159 mg/dl BORDERLINE HIGH 160 - 189 mg/dl HIGH >190 mg/dl VERY HIGH Performed By: #### L IPID, CMP, TSH #### [facility] [address] [address] [address] Peewee Russell Triglyceride [Mass/Vol] 77 mg/dL Normal <=150 [facility] Comment on above: Performed By: #### L IPID, CMP, TSH #### [facility] [address] [address] [address] Peewee Russell VLDL CALC 15.4 mg/dL Normal [facility] Comment on above: Performed By: #### L IPID, CMP, TSH #### [facility] [address] [address] [address] Peewee Russell PROF 14(COMP METB)on 023 Albumin [Mass/Vol] 3.7 g/dL Normal 3.4-5.0 [facility] Comment on above: Performed By: #### L IPID, CMP, TSH #### [facility] [address] [address] [address] Peewee Russell Albumin/Globulin [Mass ratio] 1.0 {ratio} Normal [facility] Comment on above: Performed By: #### L IPID, CMP, TSH #### [facility] [address] [address] [address] Peewee Russell ALP [Catalytic activity/Vol] 68 U/L Normal 46-116 [facility] Comment on above: Performed By: #### L IPID, CMP, TSH #### [facility] [address] [place] [address] Dr. Peewee Russell ALT [Catalytic activity/Vol] 19 U/L Normal 16-63 [facility] Comment on above: Performed By: #### L IPID, CMP, TSH #### [facility] [address] [address] [address] Peewee Russell Anion gap [Moles/Vol] 8.3 mmol/L Normal [facility] Comment on above: Performed By: #### L IPID, CMP, TSH #### [facility] [address] [place] [address] Dr. Peewee Russell AST [Catalytic activity/Vol] 20 U/L Normal 15-37 [facility] Comment on above: Performed By: #### L IPID, CMP, TSH #### [facility] [address] [address] [address] Peewee Russell Bilirubin [Mass/Vol] 0.5 mg/dL Normal 0.2-1.0 [facility] Comment on above: Performed By: #### L IPID, CMP, TSH #### [facility] [address] [place] [address] Dr. Peewee Russell Calcium [Mass/Vol] 9.1 mg/dL Normal 8.5-10.1 [facility] Comment on above: Performed By: #### L IPID, CMP, TSH #### [facility] [address] [place], [place] [id number] Dr. Peewee Russell Chloride [Moles/Vol] 103 mmol/L Normal 98-107 [facility] Comment on above: Performed By: #### L IPID, CMP, TSH #### [facility] [address] [place] [address] Dr. Peewee Russell CO2 [Moles/Vol] 32.9 mmol/L Critically high 21.0-32.0 [facility] Comment on above: Performed By: #### L IPID, CMP, TSH #### [facility] [address] [place] [address] Dr. Peewee Russell Creatinine [Mass/Vol] 0.75 mg/dL Normal 0.70-1.30 [facility] Comment on above: Performed By: #### L IPID, CMP, TSH #### [facility] [address] [place] [address] Dr. Peewee Russell EGFR-AF PALESTINIAN >60 Normal >=60 [facility] Comment on above: Performed By: #### L IPID, CMP, TSH #### [facility] [address] [place] [address] Dr. Peewee Russell EGFR-NON AF PALESTINIAN >60 Normal >=60 [facility] Comment on above: Performed By: #### L IPID, CMP, TSH #### [facility] [address] [place] [address] Dr. Peewee Russell Globulin (S) [Mass/Vol] 3.6 g/dL Normal [facility] Comment on above: Performed By: #### L IPID, CMP, TSH #### [facility] [address] [place] [address] Dr. Peewee Russell Glucose [Mass/Vol] 114 mg/dL Critically high 74-106 [facility] Comment on above: Performed By: #### L IPID, CMP, TSH #### [facility] [address] [place] [address] Dr. Peewee Russell Potassium [Moles/Vol] 4.2 mmol/L Normal 3.5-5.1 [facility] Comment on above: Performed By: #### L IPID, CMP, TSH #### [facility] [address] [address] [address] Peewee Russell Protein [Mass/Vol] 7.3 g/dL Normal 6.4-8.2 [facility] Comment on above: Performed By: #### L IPID, CMP, TSH #### [facility] [address] [place] [address] Dr. Peewee Russell Sodium [Moles/Vol] 140 mmol/L Normal 136-145 [facility] Comment on above: Performed By: #### L IPID, CMP, TSH #### [facility] [address] [place] [address] Dr. Peewee Russell Urea nitrogen [Mass/Vol] 16.0 mg/dL Normal 7.0-18.0 [facility] Comment on above: Performed By: #### L IPID, CMP, TSH #### [facility] [address] [place] [address] Dr. Peewee Russell Urea nitrogen/Creatinine [Mass ratio] 21.3 mg/mg Normal [facility] Comment on above: Performed By: #### L IPID, CMP, TSH #### [facility] [address] [place] [address] Dr. Peewee Russell TSHon 03-25-2022 TSH 1.754 uIU/mL Normal 0.358-3.740 [facility] Comment on above: Performed By: #### L IPID, CMP, TSH #### [facility] [address] [place] [address] Dr. Peewee Russell VIT B12 AND FOLATEon 023 Cobalamin (Vitamin B12) [Mass/Vol] 1002.0 pg/mL Critically high 193.0-986.0 [facility] Comment on above: Performed By: #### L IPID, CMP, TSH #### [facility] [address] [place] [address] Dr. Peewee Russell FOLATE 16.00 ng/mL Normal 8.60-58.90 [facility] Comment on above: Performed By: #### L IPID, CMP, TSH #### [facility] [address] [place] [address] Dr. Peewee Russell FOLATE ([facility])on Folate 7.8 ng/mL Normal >3.0 [facility] Comment on above: Result Comment: A se rum folate concentration of less than 3.1 ng/mL is considered to represent clinical deficiency. Performed By: #### L IPID, CMP, TSH #### [facility] [address] [place] [address] Dr. Peewee Russell CBC AUTO DIFFon 09-10-2021 BASO # 0.0 103/ul Normal 0.0-0.1 [facility] Comment on above: Performed By: #### C BC #### [facility] [address] [place] [address] Dr. Peewee Russell Basophils/100 WBC (Bld) 0.5 % Normal 0.2-2.0 [facility] Comment on above: Performed By: #### C BC #### [facility] [address] [place] [address] Dr. Peewee Russell EO # 0.1 103/ul Normal 0.0-0.7 [facility] Comment on above: Performed By: #### C BC #### [facility] [address] [place] [address] Dr. Peewee Russell Eosinophils/100 WBC (Bld) 1.3 % Normal 0.9-7.0 [facility] Comment on above: Performed By: #### C BC #### [facility] [address] [place] [address] Dr. Peewee Russell Erythrocyte distribution width (RBC) [Ratio] 13.3 % Normal 11.0-15.0 [facility] Comment on above: Performed By: #### C BC #### [facility] [address] [place] [address] Dr. Peewee Russell Hematocrit (Bld) [Volume fraction] 42.1 % Normal 42.0-54.0 [facility] Comment on above: Performed By: #### C BC #### [facility] [address] [place] [address] Dr. Peewee Russell Hemoglobin (Bld) [Mass/Vol] 13.9 g/dL Critically low 14.0-18.0 [facility] Comment on above: Performed By: #### C BC #### [facility] [address] [place] [address] Dr. Peewee Russell IG # 0.03 10e3/ul Normal 0.00-0.03 [facility] Comment on above: Performed By: #### C BC #### [facility] [address] [place] [address] Dr. Peewee Russell IG % 0.4 % Normal 0.0-0.5 [facility] Comment on above: Performed By: #### C BC #### [facility] [address] [place] [address] Dr. Peewee Russell LYMPH # 1.9 103/ul Normal 1.2-3.8 [facility] Comment on above: Performed By: #### C BC #### [facility] [address] [place] [address] Dr. Peewee Russell Lymphocytes/100 WBC (Bld) 23.0 % Normal 20.5-60.0 [facility] Comment on above: Performed By: #### C BC #### [facility] [address] [place] [address] Dr. Peewee Russell MANUAL DIFF REQ NO Normal [facility] Comment on above: Performed By: #### C BC #### [facility] [address] [place] [address] Dr. Peewee Russell MCH (RBC) [Entitic mass] 32.1 pg Normal 25.9-34.0 [facility] Comment on above: Performed By: #### C BC #### [facility] [address] [place] [address] Dr. Peewee Russell MCHC (RBC) [Mass/Vol] 33.0 g/dL Normal 29.9-35.2 [facility] Comment on above: Performed By: #### C BC #### [facility] [address] [place] [address] Dr. Peewee Rsusell MCV (RBC) [Entitic vol] 97.2 fL Critically high 80.0-94.0 [facility] Comment on above: Performed By: #### C BC #### [facility] [address] [address] [address] Peewee Russell MONO # 0.6 103/ul Normal 0.3-0.8 [facility] Comment on above: Performed By: #### C BC #### [facility] [address] [address] [address] Peewee Russell Monocytes/100 WBC (Bld) 7.2 % Normal 1.7-12.0 [facility] Comment on above: Performed By: #### C BC #### [facility] [address] [address] [address] Peewee Russell NEUT # 5.7 103/ul Normal 1.4-6.5 [facility] Comment on above: Performed By: #### C BC #### [facility] [address] [place] [address] Dr. Peewee Russell Neutrophils/100 WBC (Bld) 67.6 % Normal 43.0-75.0 [facility] Comment on above: Performed By: #### C BC #### [facility] [address] [address] [address] Peewee Russell Platelet mean volume (Bld) [Entitic vol] 8.9 fL Critically low 9.5-13.5 [facility] Comment on above: Performed By: #### C BC #### [facility] [address] [address] [address] Peewee Russell PLT 239 103/ul Normal 150-450 [facility] Comment on above: Performed By: #### C BC #### [facility] [address] [address] [address] Peewee Russell RBC 4.33 106/ul Critically low 4.70-6.10 [facility] Comment on above: Performed By: #### C BC #### [facility] [address] [address] [address] Peewee Russell WBC 8.4 103/ul Normal 4.0-11.0 [facility] Comment on above: Performed By: #### C BC #### [facility] [address] [place] [address] Dr. Peewee Russell GLYCOHEMOGLOBIN A1Con 2021 ADA RECOMMENDATION SEE BELOW Normal [facility] Comment on above: Result Comment: ADA RECOMMENDED LIMIT 4.0 - 6.0 ADA THERAPEUTIC TARGET < 7.0 ACTION SUGGESTED > 7.0 Performed By: #### A 1C #### [facility] [address] [place] [address] Dr. Peewee Russell Glucose [Mass/Vol] 108 mg/dL Normal [facility] Comment on above: Performed By: #### A 1C #### [facility] [address] [place] [address] Dr. Peewee Russell HbA1c (Bld) [Mass fraction] 5.4 % Normal 4.5-6.2 [facility] Comment on above: Performed By: #### A 1C #### [facility] [address] [place] [address] Dr. Peewee Russell LIPID PROFILEon 09-10-2021 CHOL-HDL RATIO NORM SEE BELOW Normal [facility] Comment on above: Result Comment: 3.3 - 4.4 LOW RISK 4.4 - 7.1 AVERAGE RISK 7.1 - 11.0 MODERATE RISK >11.0 HIGH RISK Performed By: #### T SH, LIPID, CMP #### [facility] [address] [place] [address] Dr. Peewee Russell Cholesterol [Mass/Vol] 169 mg/dL Normal <=200 [facility] Comment on above: Performed By: #### T SH, LIPID, CMP #### [facility] [address] [place] [address] Dr. Peewee Russell Cholesterol in HDL [Mass/Vol] 70 mg/dL Critically high 40-60 [facility] Comment on above: Performed By: #### T SH, LIPID, CMP #### [facility] [address] [place] [address] Dr. Peewee Russell Cholesterol in LDL [Mass/Vol] 90.4 mg/dL Normal [facility] Comment on above: Performed By: #### T SH, LIPID, CMP #### [facility] [address] [place] [address] Dr. Peewee Russell Cholesterol.total/Ch olesterol in HDL [Mass ratio] 2.4 {ratio} Normal [facility] Comment on above: Performed By: #### T SH, LIPID, CMP #### [facility] [address] [place] [address] Dr. Peewee Russell HDL NORMAL > or = 60 mg/dl - LO W CARDIOVASCULAR RISK <40 mg/dl - HIGH CARDIOVASCULAR RISK Normal [facility] Comment on above: Performed By: #### T GEORGES, LIPID, CMP #### [facility] [address] [place] [address] Dr. Peewee Russell LDL CALC NORMAL SEE BELOW Normal [facility] Comment on above: Result Comment: <100 mg/dl OPTIMAL 100 - 129 mg/dl NEAR OR ABOVE OPTIMAL 130 - 159 mg/dl BORDERLINE HIGH 160 - 189 mg/dl HIGH >190 mg/dl VERY HIGH Performed By: #### T GEORGES, LIPID, CMP #### [facility] [address] [place] [address] Dr. Peewee Russell Triglyceride [Mass/Vol] 43 mg/dL Normal <=150 [facility] Comment on above: Performed By: #### T GEORGES, LIPID, CMP #### [facility] [address] [place] [address] Dr. Peewee Russell VLDL CALC 8.6 mg/dL Normal [facility] Comment on above: Performed By: #### T GEORGES, LIPID, CMP #### [facility] [address] [place] [address] Dr. Peewee Russell PROF 14(COMP METB)on 022 Albumin [Mass/Vol] 3.7 g/dL Normal 3.4-5.0 [facility] Comment on above: Performed By: #### T GEORGES, LIPID, CMP #### [facility] [address] [place] [address] Dr. Peewee Russell Albumin/Globulin [Mass ratio] 1.0 {ratio} Normal [facility] Comment on above: Performed By: #### T GEORGES, LIPID, CMP #### [facility] [address] [address] [address] Peewee Russell ALP [Catalytic activity/Vol] 65 U/L Normal 46-116 [facility] Comment on above: Performed By: #### T SH, LIPID, CMP #### [facility] [address] [address] [address] Peewee Russell ALT [Catalytic activity/Vol] 29 U/L Normal 16-63 [facility] Comment on above: Performed By: #### T SH, LIPID, CMP #### [facility] [address] [address] [address] Peewee Russell Anion gap [Moles/Vol] 9.6 mmol/L Normal [facility] Comment on above: Performed By: #### T SH, LIPID, CMP #### [facility] [address] [address] [address] Peewee Russell AST [Catalytic activity/Vol] 21 U/L Normal 15-37 [facility] Comment on above: Performed By: #### T SH, LIPID, CMP #### [facility] [address] [address] [address] Peewee Russell Bilirubin [Mass/Vol] 0.5 mg/dL Normal 0.2-1.0 [facility] Comment on above: Performed By: #### T SH, LIPID, CMP #### [facility] [address] [address] [address] Peewee Russell Calcium [Mass/Vol] 9.0 mg/dL Normal 8.5-10.1 [facility] Comment on above: Performed By: #### T SH, LIPID, CMP #### [facility] [address] [address] [address] Peewee Russell Chloride [Moles/Vol] 104 mmol/L Normal 98-107 [facility] Comment on above: Performed By: #### T SH, LIPID, CMP #### [facility] [address] [address] [address] Peewee Russell CO2 [Moles/Vol] 31.0 mmol/L Normal 21.0-32.0 [facility] Comment on above: Performed By: #### T SH, LIPID, CMP #### [facility] [address] [address] [address] Peewee Russell Creatinine [Mass/Vol] 0.75 mg/dL Normal 0.70-1.30 [facility] Comment on above: Performed By: #### T SH, LIPID, CMP #### [facility] [address] [address] [address] Peewee Russell EGFR-AF PALESTINIAN >60 Normal >=60 [facility] Comment on above: Performed By: #### T SH, LIPID, CMP #### [facility] [address] [address] [address] Peewee Russell EGFR-NON AF PALESTINIAN >60 Normal >=60 [facility] Comment on above: Performed By: #### T SH, LIPID, CMP #### [facility] [address] [address] [address] Peewee Russell Globulin (S) [Mass/Vol] 3.6 g/dL Normal [facility] Comment on above: Performed By: #### T SH, LIPID, CMP #### [facility] [address] [address] [address] Peewee Russell Glucose [Mass/Vol] 110 mg/dL Critically high 74-106 [facility] Comment on above: Performed By: #### T SH, LIPID, CMP #### [facility] [address] [address] [address] Peewee Russell Potassium [Moles/Vol] 4.6 mmol/L Normal 3.5-5.1 [facility] Comment on above: Performed By: #### T SH, LIPID, CMP #### [facility] [address] [address] [address] Peewee Russell Protein [Mass/Vol] 7.3 g/dL Normal 6.4-8.2 [facility] Comment on above: Performed By: #### T SH, LIPID, CMP #### [facility] [address] [address] [address] Peewee Russell Sodium [Moles/Vol] 140 mmol/L Normal 136-145 [facility] Comment on above: Performed By: #### T SH, LIPID, CMP #### [facility] [address] [place] [address] Dr. Peewee Russell Urea nitrogen [Mass/Vol] 13.0 mg/dL Normal 7.0-18.0 [facility] Comment on above: Performed By: #### T SH, LIPID, CMP #### [facility] [address] [place] [address] Dr. Peewee Russell Urea nitrogen/Creatinine [Mass ratio] 17.3 mg/mg Normal [facility] Comment on above: Performed By: #### T GEORGES, LIPID, CMP #### [facility] [address] [place] [address] Dr. Peewee Russell TSHon 09-10-2021 TSH 1.463 uIU/mL Normal 0.358-3.740 [facility] Comment on above: Performed By: #### T GEORGES, LIPID, CMP #### [facility] [address] [place] [address] Dr. Peewee Russell VITAMIN B12on 09-10-2021 Cobalamin (Vitamin B12) [Mass/Vol] 620.0 pg/mL Normal 193.0-986.0 [facility] Comment on above: Performed By: #### V ITB12 #### [facility] [address] [place] [address] Dr. Peewee Lynne 08-22-2021 L -- ---- Specimen: [id number] Received: 08/22/21 Status: LYNETTE Mckinnon Num: [id number] Spec Type: Surgical Subm Dr: Keith Puente Jr, DO Tissues: A Duodenum - Biopsy (DUODENUM BX) Procedures: HE Stain/2, Gross/Micro L4 ---- Patient Age/Sex Location Account Attending Physician ---- Jb [place] 75/[facility] [id number] Keith Puente Jr, DO ---- SPEC NUM: [id number] RECD: 08/22/215 STATUS: LYNETTE MCKINNON NUM: [id number] VIET: 08/22/[address] [facility] [address]: Keith Puente Jr, DO ENTERED: 08/22/21-[address] [facility] [address]: [place] TYPE: Surgical DEPT: S ORDERED: [...] support the above pathologic diagnosis. CPT Codes [id number] ---- ---- Specimen: [id number] Received: 08/22/21 Status: LYNETTE Mckinnon Num: [id number] Spec Type: Surgical Subm Dr: Keith Puente Jr, DO Tissues: A Duodenum - Biopsy (DUODENUM BX) Procedures: HE Stain/2, Gross/Micro L4 ---- Patient: Jb Vail [id number] (Continued) ---- Signed (signature on file) Vish Alexander MD 08/23/21 [id number] [facility] COVID-19 [facility]-2021 SARS-CoV-2 (COVID-19) RNA CLARISSE+probe Ql (Unsp spec) Negative Normal Negative [facility] Comment on above: Order Comment: Healt hcare Worker?: N Result Comment: Testing for SARS-CoV-2 by RT-PCR This test was developed and its performance characteristics determined by [employer] and validated at the [facility]. This test has not been FDA cleared [...] is terminated or revoked sooner. PERFORMED BY: [place] [address] PATHOLOGIST FOOD SCIENCE TECHNICIAN MITA PINO M.D. Performed By: #### C OVID 19 [facility] [place] #### [address] abdomen pelvis w conon CT abdomen pelvis w con [facility] [place] [address] CT Scan Report Signed Patient: Jb Vail MR#: [id number] : 1945 Acct:[id number] Age/Sex: 75 / M ADM Date: 05/15/21 Loc: [facility] Room: Type: [facility] Attending Dr: Keith Puente DO Ordering Provider: Keith Puente Jr, DO Date of Service: 05/15/21 CT/CT abdomen pelvis w con: Constipation;Abdominal pain Copies to: Keith L Hykes Jr, DO CT abdomen and pelvis 05/15/2021. [...] Thompson Jr., M.D.05/15/2021 7:39 PM Dictation Location: [place] [address] Transcribed By: [facility] 05/15/211938 Dictated By: Wilmer Thompson Jr, MD 05/15/21 1626 Signed By: 05/15/211938 Normal [facility] ISTAT XRay CREon 05-15-2021 Creatinine [Mass/Vol] 0.7 mg/dL Normal 0.6-1.3 [facility] Comment on above: Result Comment: ER/E SD physician is notified/shown all ISTAT results. Critical values may be confirmed by laboratory testing if deemed necessary by ER attending doctor. Performed By: #### I SCRE #### [address] Point of Care testing , ISTAT GFR ( > 60 Normal [facility] Comment on above: Result Comment: GFR estimated reference range: According to KDOQI guidelines, <60 ml/min/1.73m2 is sufficient to diagnose a patient with chronic kidney disease. PERFORMED BY: [address] [place] [id number] PATHOLOGIST FOOD SCIENCE TECHNICIAN MITA PINO M.D. 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 He had PFTs, about 2 years. He [...] before he quit. 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 Normal [facility] XR CHEST 2V FRONTAL/LATon XR CHEST 2V FRONTAL/LAT * * *Final Report* * * DATE OF EXAM: Sep 29 2020 8:29AM X 5291 - XR CHEST 2V FRONTAL/LAT / [...] rib fractures. IMPRESSION: NO ACUTE RADIOGRAPHIC ABNORMALITY. [employer] Verification Engineer: PSCB Transcribe Date/Time: Sep 29 2020 9:03A Dictated by : ALY MAHONEY MD This examination was interpreted and the report reviewed and electronically signed by: ALY MAHONEY MD on Sep 29 2020 9:05AM EST [id number] Normal [facility] Vital Signs Date Time Vital Sign Value Performing Clinician Facility 02-05-2024 11:53-0500 Blood Pressure Location TL CARMONA [facility] 02-05-2024 11:53-0500 Body temperature 98.6 [degF] TL CARMONA [facility] 02-05-2024 11:53-0500 Diastolic blood pressure 77 mm[Hg] TL CARMONA [facility] 02-05-2024 11:53-0500 Heart rate 72 /min TLFRANCISCO JAVIER CARMONA [facility] 02-05-2024 11:53-0500 Respiratory rate 18 /min TL CARMONA [facility] 02-05-2024 11:53-0500 Systolic blood pressure 131 mm[Hg] TL KRISTINE [facility] 01-20-2024 09:35-0400 Body temperature 97 [degF] [facility] 01-20-2024 09:35-0400 Diastolic blood pressure 86 mm[Hg] [facility] 01-20-2024 09:35-0400 Heart rate 62 /min [facility] 01-20-2024 09:35-0400 SaO2% (BldA) [Mass fraction] 98 % [facility] 01-20-2024 09:35-0400 Systolic blood pressure 126 mm[Hg] [facility] 01-20-2024 08:28-0400 Body height 177.8 cm [facility] 12-17-2023 14:24-0400 Body mass index (BMI) [Ratio] 22.2 kg/m2 [facility] 12-17-2023 14:24-0400 Body temperature 97.5 [degF] [facility] 12-17-2023 14:24-0400 Diastolic blood pressure 84 mm[Hg] [facility] 12-17-2023 14:24-0400 Heart rate 76 /min [facility] 12-17-2023 14:24-0400 Respiratory rate 18 /min [facility] 12-17-2023 14:24-0400 SaO2% (BldA) [Mass fraction] 99 % [facility] 12-17-2023 14:24-0400 Systolic blood pressure 122 mm[Hg] [facility] 12-17-2023 11:58-0400 Body height 177.8 cm [facility] 12-17-2023 11:58-0400 Body weight 70.3 kg [facility] 10-14-2023 08:12-0400 Body height 177.8 cm [facility] 10-14-2023 08:12-0400 Body mass index (BMI) [Ratio] 21.8 kg/m2 [facility] 10-14-2023 08:12-0400 Body temperature 97.3 [degF] [facility] 10-14-2023 08:12-0400 Body weight 68.94 kg [facility] 10-14-2023 08:12-0400 Diastolic blood pressure 76 mm[Hg] [facility] 10-14-2023 08:12-0400 Heart rate 68 /min [facility] 10-14-2023 08:12-0400 SaO2% (BldA) [Mass fraction] 97 % [facility] 10-14-2023 08:12-0400 Systolic blood pressure 126 mm[Hg] [facility] 04-08-2023 08:10-0500 Body height 177.8 cm Keith Atkinson Other [employer] Other 04-08-2023 08:10-0500 Body mass index (BMI) [Ratio] 23.53 kg/m2 Keith Atkinson Other [employer] Other 04-08-2023 08:10-0500 Body temperature 97.9 [degF] Keith Atkinson Other [employer] Other 04-08-2023 08:10-0500 Body weight 74.39 kg Keith Atkinson Other [employer] Other 04-08-2023 08:10-0500 Diastolic blood pressure 78 mm[Hg] Keith Atkinson Other [employer] Other 04-08-2023 08:10-0500 Respiratory rate 18 /min Keith Atkinson Other [employer] Other 04-08-2023 08:10-0500 SaO2% (BldA) [Mass fraction] 98 % Keith Atkinson Other [employer] Other 04-08-2023 08:10-0500 Systolic blood pressure 128 mm[Hg] Keith Atkinson Other [employer] Other 01-27-2023 11:09-0500 Blood Pressure Location Moise JOY [facility] 01-27-2023 11:09-0500 Diastolic blood pressure 71 mm[Hg] Moise JOY [facility] 01-27-2023 11:09-0500 Heart rate 70 /min Moise JOY [facility] 01-27-2023 11:09-0500 Respiratory rate 16 /min Moise JOY [facility] 01-27-2023 11:09-0500 Systolic blood pressure 133 mm[Hg] Moise JOY [facility] 10-01-2022 08:10-0400 Body height 177.8 cm Keith Atkinson Other [employer] [facility] [employer] Other 10-01-2022 08:10-0400 Body mass index (BMI) [Ratio] 21.88 kg/m2 Keith Atkinson Other [employer] Other 10-01-2022 08:10-0400 Body temperature 98.5 [degF] Keith Atkinson Other [employer] Other 10-01-2022 08:10-0400 Body weight 69.17 kg Keith Atkinson Other [employer] Other 10-01-2022 08:10-0400 Diastolic blood pressure 80 mm[Hg] Keith Atkinson Other [employer] Other 10-01-2022 08:10-0400 Respiratory rate 18 /min Keith Atkinson Other [employer] Other 10-01-2022 08:10-0400 SaO2% (BldA) [Mass fraction] 99 % Keith Atkinson Other [employer] Other 10-01-2022 08:10-0400 Systolic blood pressure 124 mm[Hg] Keith Atkinson Other [employer] Other 05-20-2022 09:10-0500 Body height 177.8 cm Keith Margaritaderek Other [employer] Other 05-20-2022 09:10-0500 Body mass index (BMI) [Ratio] 22.74 kg/m2 Keith [place] Other [employer] Other 05-20-2022 09:10-0500 Body temperature 97.5 [degF] Keith Atkinson Other [employer] Other 05-20-2022 09:10-0500 Body weight 71.9 kg Keith Atkinson Other [employer] Other 05-20-2022 09:10-0500 Diastolic blood pressure 84 mm[Hg] Keith Atkinson Other [employer] Other 05-20-2022 09:10-0500 Respiratory rate 18 /min Keith Margaritaderek Other [employer] Other 05-20-2022 09:10-0500 SaO2% (BldA) [Mass fraction] 98 % Keith Atkinson Other [employer] Other 05-20-2022 09:10-0500 Systolic blood pressure 122 mm[Hg] Keith Atkinson Other [employer] Other 03-28-2022 09:10-0500 Body height 177.8 cm Keith Margaritaderek Other [employer] Other 03-28-2022 09:10-0500 Body mass index (BMI) [Ratio] 22.67 kg/m2 Keith Atkinson Other [employer] Other 03-28-2022 09:10-0500 Body temperature 98.5 [degF] Keith Atkinson Other [employer] Other 03-28-2022 09:10-0500 Body weight 71.67 kg Keith Atkinson Other [employer] Other 03-28-2022 09:10-0500 Diastolic blood pressure 80 mm[Hg] Keith Atkinson Other [employer] Other 03-28-2022 09:10-0500 Respiratory rate 18 /min Keith Atkinson Other [employer] Other 03-28-2022 09:10-0500 SaO2% (BldA) [Mass fraction] 99 % Keith Atkinson Other [employer] Other 03-28-2022 09:10-0500 Systolic blood pressure 118 mm[Hg] Keith Atkinson Other [employer] Other 10-08-2021 15:01-0400 Blood Pressure Location Moise JJ PHARMA [facility] 10-08-2021 15:01-0400 Diastolic blood pressure 85 mm[Hg] Moise JOY [facility] 10-08-2021 15:01-0400 Heart rate 72 /min Omise JOY [facility] 10-08-2021 15:01-0400 Systolic blood pressure 146 mm[Hg] Moise JOY [facility] 09-13-2021 09:10-0400 Body height 177.8 cm Keith Atkinson Other [employer] Other 09-13-2021 09:10-0400 Body mass index (BMI) [Ratio] 21.88 kg/m2 Keith Atkinson Other [employer] Other 09-13-2021 09:10-0400 Body temperature 97.2 [degF] Keith Atkinson Other [employer] Other 09-13-2021 09:10-0400 Body weight 69.17 kg Keith Atkinson Other [employer] Other 09-13-2021 09:10-0400 Diastolic blood pressure 26 mm[Hg] Keith Atkinson Other [employer] Other 09-13-2021 09:10-0400 Respiratory rate 18 /min Keith Atkinson Other [employer] Other 09-13-2021 09:10-0400 SaO2% (BldA) [Mass fraction] 98 % Keith Atkinson Other [employer] Other 09-13-2021 09:10-0400 Systolic blood pressure 126 mm[Hg] Keith Atkinson Other [employer] Other 05-09-2021 17:00-0500 Body height 177.8 cm Keith Puente Other [employer] Other 05-09-2021 17:00-0500 Body mass index (BMI) [Ratio] 22.24 kg/m2 Keith Puente Other [employer] Other 05-09-2021 17:00-0500 Body weight 70.31 kg Keith Puente Other [employer] Other 03-13-2021 09:10-0500 Body height 177.8 cm Keith Atkinson Other [employer] Other 03-13-2021 09:10-0500 Body mass index (BMI) [Ratio] 22.67 kg/m2 Keith Atkinson Other [employer] Other 03-13-2021 09:10-0500 Body temperature 97.4 [degF] Keith Atkinson Other [employer] Other 03-13-2021 09:10-0500 Body weight 71.67 kg Keith Atkinson Other [employer] Other 03-13-2021 09:10-0500 Diastolic blood pressure 80 mm[Hg] Keith Atkinson Other [employer] Other 03-13-2021 09:10-0500 Respiratory rate 18 /min Keith Margaritaderek Other [employer] Other 03-13-2021 09:10-0500 SaO2% (BldA) [Mass fraction] 99 % Keith Atkinson Other [employer] Other 03-13-2021 09:10-0500 Systolic blood pressure 124 mm[Hg] Keith Atkinson Other [employer] Other Encounters Encounter Date Encounter Type Care Provider Facility Start: 02-05-2024 End: 02-05-2024 ambulatory PA-C TL CARMONA Facility:[facility] Start: 02-05-2024 End: 02-05-2024 Patient encounter procedure TL CARMONA [facility] Start: 01-30-2024 End: 01-30-2024 ambulatory Moise JOY Facility:[facility] Start: 01-30-2024 End: 01-30-2024 Patient encounter procedure Moise R BENITA [facility] Start: 01-20-2024 End: 01-20-2024 ambulatory [facility] Work Phone: Start: 01-20-2024 End: 01-20-2024 Patient encounter procedure Counts Include [facility] Physician [facility] Work Phone: Start: 12-18-2023 Non-patient / Non-visit Counts Include [facility] Physician [facility] [employer] Work Phone: Start: 12-17-2023 End: 12-17-2023 ambulatory [facility] Work Phone: Start: 12-17-2023 End: 12-17-2023 Patient encounter procedure Counts Include [facility] Physician [facility] Work Phone: Start: 10-14-2023 End: 10-14-2023 ambulatory [facility] Work Phone: Start: 10-14-2023 End: 10-14-2023 Patient encounter procedure Counts Include [facility] Physician [facility] [place] Work Phone: Start: 10-09-2023 Non-patient / Non-visit Counts Include [facility] Physician [facility] [employer] Work Phone: Start: 09-19-2023 Non-patient / Non-visit Counts Include [facility] Physician [facility] Work Phone: Start: 05-12-2023 End: 05-12-2023 ambulatory Moise JOY Facility:[facility] [place] Start: 05-12-2023 End: 05-12-2023 Patient encounter procedure Moise JOY [facility] Start: 04-14-2023 End: 04-14-2023 ambulatory Keith Atkinson Other [employer] Other Start: 04-14-2023 Telephone encounter [facility] Start: 04-08-2023 End: 04-08-2023 ambulatory Keith Atkinson Other [employer] Other Start: 04-08-2023 Office outpatient visit 25 minutes Keith Atkinson [facility] Start: 03-10-2023 End: 03-10-2023 ambulatory Keith Atkinson Other [employer] Other Start: 03-10-2023 Telephone encounter Keith Atkinson [facility] Start: 01-27-2023 End: 01-27-2023 Patient encounter procedure Moise JOY [facility] Start: 11-28-2022 End: 11-28-2022 ambulatory Keith Atkinson Other [employer] Other Start: 11-28-2022 Telephone encounter Keith Atkinson [facility] Start: 10-01-2022 End: 10-01-2022 ambulatory Keith Atkinson Other [employer] Other Start: 10-01-2022 Office outpatient visit 25 minutes Keith Atkinson [facility] Start: 09-27-2022 End: 09-27-2022 ambulatory Keith Atkinson Other [employer] Other Start: 09-27-2022 Telephone encounter Keith Atkinson [facility] Start: 06-14-2022 End: 06-14-2022 ambulatory Keith Atkinson Other [employer] Other Start: 06-14-2022 Telephone encounter Keith Atkinson [facility] Start: 05-29-2022 End: 05-29-2022 ambulatory Keith Atkinson Other [employer] Other Start: 05-29-2022 Telephone encounter Keith Atkinson [facility] [place] Start: 05-20-2022 End: 05-20-2022 ambulatory Keith Atkinson Other [employer] Other Start: 05-20-2022 Office outpatient visit 15 minutes Keith Atkinson [facility] [place] Start: 04-05-2022 End: 04-05-2022 ambulatory Keith Atkinson Other [employer] Other Start: 04-05-2022 Telephone encounter Keith Atkinson [facility] Start: 03-28-2022 End: 03-28-2022 ambulatory Keith Atkinson Other [employer] Other Start: 03-28-2022 Office outpatient visit 25 minutes Keith Atkinson [facility] [place] Start: 03-25-2022 End: 03-26-[address] KEITH ATKINSON Facility:[facility] Start: 10-08-2021 End: 10-08-2021 Patient encounter procedure Moise JOY [facility] Start: 10-04-2021 End: 10-05-[address] MOISE JOY Facility:[facility] Start: 09-13-2021 End: 09-13-2021 ambulatory Keith Atkinson Other [employer] Other Start: 09-13-2021 Office outpatient visit 25 minutes Keith Atkinson [facility] Start: 09-10-2021 End: 09-11-[address] KEITH ATKINSON Facility:[facility] Start: 07-20-2021 End: 07-20-2021 ambulatory Keith Puente Other [employer] Other Start: 07-20-2021 Telephone encounter Keith Puente [facility] Start: 06-04-2021 End: 06-04-2021 ambulatory Keith Atkinson Other [employer] Other Start: 06-04-2021 Telephone encounter Keith Atkinson [facility] Start: 05-09-2021 End: 05-09-2021 ambulatory Keith Puente Other [employer] Other Start: 05-09-2021 Office outpatient visit 25 minutes Keith Puente [facility] Start: 04-04-2021 End: 04-04-2021 ambulatory Keith Atkinson Other [employer] Other Start: 04-04-2021 Telephone encounter Keith Atkinson [facility] Start: 03-28-2021 End: 03-28-2021 ambulatory Keith Atkinson Other [employer] Other Start: 03-28-2021 Telephone encounter Keith Atkinson [facility] [place] Start: 03-27-2021 End: 03-27-2021 ambulatory Keith Atkinson Other [employer] Other Start: 03-27-2021 Telephone encounter Keith Atkinson [facility] Start: 03-13-2021 End: 03-13-2021 ambulatory Keith Atkinson Other [employer] Other Start: 03-13-2021 Office outpatient visit 25 minutes Keith Atkinson [facility] Procedures Date Procedure Procedure Detail Performing Clinician Start: 01-14-2023 Transrectal biopsy o f prostate using ultrasound guidance Moise JOY Start: 10-04-[address] KEITH ATKINSON Comment on above: Performed By: #### P SAD #### [facility] [address] [place] [address] Dr. Peewee Russell Start: 07-24-2017 right elbow removal of hardware Moise OJY Start: 01-15-2017 Open reduction of fr acture of elbow with internal fixation Moise JOY Comment on above: Right elbow Start: 12-26-2011 Transurethral prostatectomy Moise JOY Start: 11-11-2011 Urodynamic studies Kaitlynn JOY Start: 08-07-2010 Ultrasonography guid ed transrectal cryoablation of prostate Moise JOY Start: 03-30-2010 Cystoscopy Moise KEKE VALLEJOCristian Arthroscopy Moise JOY Comment on above: Right shoulder lower back surgery Moise JAIMES neck surgery 3 Moise Foster Comment on above: zephyr plate -titani um Right hand third fin cesilia surgery Moise JOY Plan of Treatment Date Care Activity Detail Author Start: 12-17-2023 Patient referral [facility] Work Phone: Comprehensive metabo lic 2000 panel - Serum or Plasma [facility] Patient referral [facility] Work Phone: XR Chest 2 Views [facility] Immunizations Immunization Date Immunization Notes Care Provider Fa [email or web address] 01-20-2023 COVID-19 Vaccine Pfi zer - Documentation Purposes Only Keith Atkinson Other [facility] 01-20-2023 Flu Shot - Documentation Purposes Only Keith Atkinson Other [facility] 01-20-2023 influenza virus vaccine, unspecified formulation Moise JOY [facility] 12-06-2021 influenza virus vaccine, unspecified formulation Moise JOY [facility] 12-06-2021 SARS-CoV-2 (COVID-19 ) [id number] Moise BENITA [facility] 12-06-2021 influenza, seasonal, injectable Keith Atkinson Other [facility] 06-29-2021 SARS-CoV-2 (COVID-19 ) [id number] vaccine Moisesoren JOY [facility] Comment on above: Result Comment: 2022: [id number] 01-23-2021 influenza, seasonal, injectable Keith Atkinson Other [facility] 12-27-2020 influenza virus vaccine, unspecified formulation Moisesoren JOY [facility] 12-27-2020 pneumococcal polysaccharide vaccine, 23 valent Moise JOY [facility] 12-16-2020 COVID-19 Vaccine Moderna - Documentation Purposes Only Keith Atkinson Other [facility] Comment on above: Result Comment: 2022: [id number] 06-14-2020 zoster vaccine recombinant Keith Atkinson Other [facility] 05-30-2020 COVID-19 Vaccine Moderna - Documentation Purposes Only Keith Atkinson Other [facility] 05-01-2020 COVID-19 Vaccine Moderna - Documentation Purposes Only Keith Atkinson Other [facility] 03-21-2020 zoster vaccine recombinant Keith Atkinson Other [facility] 12-23-2019 influenza virus vaccine, unspecified formulation Moise JOY [facility] 12-23-2019 pneumococcal conjuga te vaccine, 13 valent Moise JOY [facility] 12-23-2019 influenza, seasonal, injectable Keith Atkinson Other [facility] 12-23-2019 pneumococcal polysaccharide vaccine, 23 valent Keith Atkinson Other [facility] 12-28-2018 influenza virus vaccine, unspecified formulation Moise JOY [facility] 12-22-2018 influenza virus vaccine, unspecified formulation Moise JOY [facility] 12-22-2017 influenza virus vaccine, unspecified formulation Moise JOY [facility] 12-22-2017 influenza, seasonal, injectable Keith Atkinson Other [facility] 10-05-2017 tetanus toxoid, adsorbed Keith Atkinson Other [facility] 01-20-2017 influenza virus vaccine, unspecified formulation Moise JOY [facility] 01-20-2017 pneumococcal polysaccharide vaccine, 23 valent Keith Atkinson Other [facility] 12-23-2016 influenza virus vaccine, unspecified formulation Moise JOY [facility] 12-23-2016 influenza, seasonal, injectable Keith Atkinson Other [facility] 01-10-2016 influenza virus vaccine, unspecified formulation Moise JOY [facility] 12-28-2014 influenza virus vaccine, unspecified formulation Moise JOY [facility] 01-10-2009 influenza, whole Moise PIZANO [facility] NEGATED: Highlighted row has not occurred!10-08-2021 SARS-CoV-2 mRNA (tozinameran 5y-11y) vaccine Moise JOY [facility] Payers Date Payer Category Payer Medicare [id number] [id number] 1957 Medicare [id number]. [id number] 1957 Medicare [id number] 1945 Unknown [id number] 2.16.84 [id number] 1945 Unknown [id number] 2.16.84 [id number] 1945 Unknown [id number] 2.16.84 [id number] 1945 Unknown [id number] 2.16.8 [id number] 1945 Unknown [id number] 2.16.8 [id number] 1945 Unknown [id number] 2.16.8 [id number] Medicare Medicare [id number] 0ea [id number] Self-pay Self Pay [id number] Unknown MMO [id number] Social History Date Type Detail Facility Unknown if ever smoked [employer] Other Sex Assigned At [employer] Other Start: 03-31-2020 Tobacco smoking status Never s moked tobacco (finding) [facility] Start: 01-27-2023 End: 02-05-2024 Tobacco smoking status Ex-smoker (finding) [facility] Tobacco smoking status Never [facility] Start: 1945 Sex Assigned At Male F [facility] Functional Status Date Assessment Result Facility 02-05-2024 Functional Status N/A [facility] 01-27-2023 Functional Status N/A [facility] 10-08-2021 Functional Status N/A [facility] Clinical Notes 09-29-2020 to 02-09-2024 Note Date & Type Note Facility 02-09-2024 Note Patient Education Urology Benign Prostatic Hyperplasia Benign prostatic hyperplasia (BPH) is an enlarged prostate gland that is caused by the normal aging process. The prostate may get bigger as a man gets older. The condition is not caused by cancer. The prostate is a walnut-sized gland that is involved in the production of semen. It is located in front of the rectum and below the bladder. The bladder stores urine. The urethra carries stored urine out of the body. An enlarged prostate can press on the urethra. This can make it harder to pass urine. The buildup of urine in the bladder can cause infection. Back pressure and infection may progress to bladder damage and kidney (renal) failure. What are the causes? This condition is part of the normal aging process. However, not all men develop problems from this condition. If the prostate enlarges away from the urethra, urine flow will not be blocked. If it enlarges toward the urethra and compresses it, there will be problems passing urine. What increases the risk? This condition is more likely to develop in men older than 50 years. What are the signs or symptoms? Symptoms of this condition include: ??? Getting up often during the night to urinate. ??? Needing to urinate frequently during the day. ??? Difficulty starting urine flow. ??? Decrease in size and strength of your urine stream. ??? Leaking (dribbling) after urinating. ??? Inability to pass urine. This needs immediate treatment. ??? Inability to completely empty your bladder. ??? Pain when you pass urine. This is more common if there is also an infection. ??? Urinary tract infection (UTI). How is this diagnosed? This condition is diagnosed based on your medical history, a physical exam, and your symptoms. Tests will also be done, such as: ??? A post-void bladder scan. This measures any amount of urine that may remain in your bladder after you finish urinating. ??? A digital rectal exam. In a rectal exam, your health care provider checks your prostate by putting a lubricated, gloved finger into your rectum to feel the back of your prostate gland. This exam detects the size of your gland and any abnormal lumps or growths. ??? An exam of your urine (urinalysis). ??? A prostate specific antigen (PSA) screening. This is a blood test used to screen for prostate cancer. ??? An ultrasound. This test uses sound waves to electronically produce a picture of your prostate gland. Your health care provider may refer you to a specialist in kidney and prostate diseases (urologist). How is this treated? Once symptoms begin, your health care provider will monitor your condition (active surveillance or watchful waiting). Treatment for this condition will depend on the severity of your condition. Treatment may include: ??? Observation and yearly exams. This may be the only treatment needed if your condition and symptoms are mild. ??? Medicines to relieve your symptoms, including: ? Medicines to shrink the prostate. ? Medicines to relax the muscle of the prostate. ??? Surgery in severe cases. Surgery may include: ? Prostatectomy. In this procedure, the prostate tissue is removed completely through an open incision or with a laparoscope or robotics. ? Transurethral resection of the prostate (TURP). In this procedure, a tool is inserted through the opening at the tip of the penis (urethra). It is used to cut away tissue of the inner core of the prostate. The pieces are removed through the same opening of the penis. This removes the blockage. ? Transurethral incision (TUIP). In this procedure, small cuts are made in the prostate. This lessens the prostate's pressure on the urethra. ? Transurethral microwave thermotherapy (TUMT). This procedure uses microwaves to create heat. The heat destroys and removes a small amount of prostate tissue. ? Transurethral needle ablation (TUNA). This procedure uses radio frequencies to destroy and remove a small amount of prostate tissue. ? Interstitial laser coagulation (ILC). This procedure uses a laser to destroy and remove a small amount of prostate tissue. ? Transurethral electrovaporization (TUVP). This procedure uses electrodes to destroy and remove a small amount of prostate tissue. ? Prostatic urethral lift. This procedure inserts an implant to push the lobes of the prostate away from the urethra. Follow these instructions at home: ??? Take xzux-mfh-nelvqez and prescription medicines only as told by your health care provider. ??? Monitor your symptoms for any changes. Contact your health care provider with any changes. ??? Avoid drinking large amounts of liquid before going to bed or out in public. ??? Avoid or reduce how much caffeine or alcohol you drink. ??? Give yourself time when you urinate. ??? Keep all follow-up visits. This is important. Contact a health care provider if: ??? You have unexplained back pain. ??? Your symptoms do not get (more content not included)... [facility] 12-17-2023 Evaluation note Authored December 17, 2023 3:26pm The above note written by __ _Sarah Deshpande____ acting as human recorder, note dictated by Dr. Esparza .I performed the above HPI, ROS, and Examination. I formulated and dictated the treatment plan and was present for entire encounter. Keith Atkinson D.O. [facility] Work Phone: [phone]) 651-176607-23-2024 Evaluation note* Author Keith Atkinson [facility] Authored October 14, 2023 9:02 am The above note written by __ _Sarah Deshpande____ acting as human recorder, note dictated by Dr. Esparza .I performed the above HPI, ROS, and Examination. I formulated and dictated the treatment plan and was present for entire encounter. Keith Atkinson D.O. [facility] Work Phone: [phone]) 824-628401-16-2024 Evaluation note* Encounter Date Diagnosis Assessment Notes [...] above medication daily as directed. 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) [facility] Other 12-18-2023 Evaluation note* Encounter Date Diagnosis Assessment Notes Treatment Notes Treatment Clinical Notes Feb, COPD (chronic obstructive pulmonary disease) (ICD-10 - J44.9) [facility] Other 09-28-2023 Hospital Discharge instructions Follow Up Care 12/19/2022 14:25:52 With:BENITA SELF, Moise Bills, URL Address: [facility] [address], [place] [address]- When:Within 1 Year(s) Comments:w/PSA [facility] 09-07-2023 Evaluation note* Encounter Date Diagnosis Assessment Notes Treatment Notes Treatment Clinical Notes Nov, Anxiety and depression (ICD-10 - F41.8) [facility] Other 07-11-2023 Evaluation note* Encounter Date Diagnosis [...] I did recommend that he see a installation & maintenance executive, and he refuses. He states that he [...] but they should be given by a installation & maintenance executive. He only uses the [employer] as needed. [...] I did recommend that he see a vp of product for evaluation to discuss what has been going on and determine what testing needs to be done. He refuses. He does not want the hassle of going to the vp of product. He states that when he hits the [...] above medication daily as directed. 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 [facility] Other 01-13-2023 Evaluation note* Encounter Date Diagnosis Assessment Notes Treatment Notes Treatment Clinical Notes Mar, COPD (chronic obstructive pulmonary disease) (ICD-10 - J44.9) [facility] Other 01-05-2023 Evaluation note* Encounter Date Diagnosis [...] TSH is normal at 1.754. Mar, Other alf (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 therapy (ICD-10 - Z79.899) Mar, [...] on his lip but it is healing. [facility] Other 07-18-2022 Hospital Discharge instructions Patient Education [...] have oneof these risk factors: ?Being of -[place]amese descent. ?Having a family history of prostate [...] you: Are older than age 55. Are -Surinamese. Have a father, brother, or uncle who [...] 12/19/2017 Document Revised: 02/20/2018 Document Reviewed: 12/19/2017 [employer] Patient Education 2020 [employer]. Follow Up Care 07/25/2021 09:55:06 With:BENITA SELF, Moise Bills, URL Address: [facility] [address] [place] [address]- [phone] When:10/08/2022 [facility]a 06-23-2022 Evaluation note* Encounter Date Diagnosis [...] that beyond that he should see a sensitized paper tester. He should wear a wide brimmed hat, and wear a chapstick with SPF to protect this area from the sun. If he wants to see a sensitized paper tester he should let me know. If he [...] Continue with above medication as needed. 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 [facility] Other 03-14-2022 Evaluation note* Encounter Date Diagnosis Assessment Notes Treatment Notes Treatment Clinical Notes May, COPD (chronic obstructive pulmonary disease) (ICD-10 - J44.9) [facility] Other 02-16-2022 Evaluation note* Encounter Date Diagnosis Assessment Notes Treatment Notes Treatment Clinical Notes Apr, Constipation (ICD-10 - K59.00) RTO 4-6 WEEKS Apr, Abdominal pain (ICD-10 - R10.9) Apr, Nausea (ICD-10 - R11.0) [facility] Other 01-12-2022 Evaluation note* Encounter Date Diagnosis [...] Mar, Other 1:52 PM - 1:58 PM [facility] Other 01-04-2022 Evaluation note* Encounter Date Diagnosis Assessment Notes Treatment Notes Treatment Clinical Notes Mar, Fatigue (ICD-10 - R53.83) Mar, Exposure to COVID-19 virus (ICD-10 - Z20.828) [facility] Other 12-21-2021 Evaluation note* Encounter Date Diagnosis [...] with above medication daily as directed. Feb, penitentiary use of drug (ICD-10 - Z79.899) Feb, [...] Diego for evaluation next month (Mar 2021). [facility] Other 07-09-2021 NoteHNO ID: [id number] Author: Addis Michaud MD Service: ? Author [...] in the past, he was seeing a [employer] installation & maintenance executive. He had PFTs, about 2 years. He [...] before he quit. 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 He went out on [...] Take by mouth once (more content not included)...[facility]07-09-2021 NoteProcedure (PULMAV) JB VAIL ([id number]) 1945 M Date Time Provider Department 09/29/20 8:30 AM PULM LAB [facility] REJ PULMAV During your visit today, we recorded the following information about you: Referring Provider: SELF [200] Allergies As of Date: 09/29/2020 Noted Allergy Reaction PENICILLINS 05/27/2001 2 - Rash SULFA (SULFONAMIDE ANTIBIOTICS) 05/27/2001 2 - Rash Date Reviewed: 09/29/2020 Reviewed by: Barb Lozoya, OSCILLOGRAPH TECHNICIAN - Fully Assessed Reason for Visit: Spirometry [191] Visit Diagnosis:Dyspnea on exertion [R06.00] Order(s):SPIROMETRY WITH DILATOR IF OBSTRUCTED [[id number]] Order #: [id number] Prescriptions as of 09/29/2020 - dicyclomine (BENTYL) [...] R25.9] Encounter Status:Closed by BARB LOZOYA on 09/29/20[facility] 09-29-2020 NoteHNO ID: [id number] Author: Barb Julio RT(R) Service: Radiology Author Type: Survey Director Type: Progress Notes Filed: 09/29/2020 8:07 AM [...] Barb Julio, RT(R) September 29, 2020 [facility] Future Appointments Appointment Date:10/11/2022 08:00:00 AM Scheduled Provider:Moise JOY MD Location:[facility] Appointment Type:URO Office Visit Diagnostic Tests Pending * PSA Total 10/08/21 [facility] evaluation + Plan note Future Appointments Appointment Date:01/30/2024 08:30:00 AM Scheduled Provider:Moise JOY MD Location:[facility] Appointment Type:URO Office Visit Diagnostic Tests Pending * PSA Total 01/27/23 [facility] evaluation + Plan note Future Appointments Appointment Date:01/30/2024 08:30:00 AM Scheduled Provider:Moise JOY MD Location:[facility] Appointment Type:URO Office Visit [facility] evaluation + Plan note Future Appointments Appointment Date:02/05/2024 11:40:00 AM Scheduled Provider:TL CARMONA PA-C Location:[facility] Appointment Type:URO Office Visit [facility] evaluation noteNo [facility] [employer] Other Evaluation note* Diagnosis Onset Date Resolution Status Abdominal pain acute Abscess acute Anemia acute BPH (benign prostatic hyperplasia) acute Chest pain acute Cold sore acute Constipation acute COPD (chronic obstructive pulmonary disease) acute Hyperglycemia acute Hyperlipidemia acute Weight loss acute [facility] Work Phone: [employer] general Narrative - Reported* Type Description Date [...] History TRUS with Biopsy Dr. 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 Pressley 08-07-18 Surgical History Colonoscopy, EGD, Dr. Puente 08/22 Hospitalization History see above [facility] Other History general Narrative - Reported* Type [...] History TRUS with Biopsy Dr. 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 Pressley 08-07-18 Hospitalization History see above [facility] Other Hospital course Narrative No data available for this section [facility] Hospital Discharge instructions No data available for this section [facility] [place] progress note No data available for this section [facility] Purpose Family History No Family History Records Found Relationship Condition Age at Onset Recorded Date/T jarrod sister Kidney disorder Unknown brother Cardiovascular disease Unknown father Cardiovascular disease Unknown brother Heart disease Unknown Congestive heart failure Unknown father Unknown Malignant neoplasm Unknown father Malignant neoplasm Unknown grandparent Unknown grandparent Heart disease Unknown Unknown grandparent Malignant neoplasm Unknown mother Unknown son Malignant neoplasm Unknown Advance Directives No Advanced Directives Records Found Advance Directive Response Recorded Date/ Time Advance Directives No June 23 10:45am Reason for Referral Reason appt pt needs cons ult to discuss constipation, change in bowel habits, dark stools Diagnosis 1 Constipation (K59.00 ) Referral Organization [facility] Family Bandar [place] Referring Provider First Name Keith Referring Provider Last Name China Referring Provider Specialty Family Prac tomy Referred Organization [facility] Referred Provider Keith Puente Referred Address [address] [facility],[place] [address] ,[place], [place],[address] Referred Provider Specialty Gastroentero logy Referral Priority [...] section and content) DATE CREATED AUTHOR 09/30/2020 [facility] DATE CREATED AUTHOR AUTHOR'S ORGANIZ ATION 05/07/2021 [facility] DATE CREATED AUTHOR AUTHOR'S ORGANIZ ATION 08/27/2021 [facility] DATE CREATED AUTHOR AUTHOR'S ORGANIZ ATION 04/16/2022 [facility] DATE CREATED AUTHOR AUTHOR'S ORGANIZ ATION 02/16/2024 [facility] REASON FOR VISIT (unrecogniz ed section and content) review labssinus congestion/ weaknessreview labsPCR resultstesting questionrefillPATIENT COMPLAINING OF CONSTIPATION AND BLOOD IN STOOLClinical Acute Illnessreview labsrefillClinicalpossible thrushClinicalClinicalClinical / labreview labsClinicalrefillRefillsreview labsClinical Acute Illness Care Team (unrecognized sect ion and content) Team Status: Active Member Role Status Dates Keith Atkinson , DO Primary Care Provider Active Team Status: Inactive Member Role Status Dates Keith Atkinson DO Primary Care Provide r, Attending Provider Active Start: December 17, 2023 End: December 17, 2023 Team Status: Active Member Role Status Dates Keith Atkinson , DO Primary Care Provider Active S tart: December 18, 2023 Augie [facility] , DO Attending Provider Active Start: December 18, 2023 Team Status: Inactive Member Role Status Dates Keith Atkinson , DO Primary Care Provide r, Attending Provider Active Start: January 20, 2024 End: January 20, 2024 Team Status: Active Member Role Status Blake Atkinson , Primary Care Provider Active S tart: September [...] BE BASED ON THE PRIMARY CLINICAL RECORDS. [facility] [facility]. provides no warranty or guarantee of the accuracy or completeness of information in this document.
[2024-04-09 11:19] LABS: Estimated Average Glucose 117 mg/dL; Glycohemoglobin A1C 5.7 % (4.5-6.2)
[2024-04-09 11:44] LABS: Alanine Aminotransferase 14 U/L (16-63); Albumin Globulin Ratio 1.2; Albumin Level 3.8 g/dL (3.4-5.0); Alkaline Phosphatase 63 U/L (46-116); Anion Gap 10.4; Aspartate Amino Transferase 18 U/L (15-37); BUN Creatinine Ratio 22.1; Bilirubin Total 0.5 mg/dL (0.2-1.0); Calcium 9.3 mg/dL (8.5-10.1); Carbon Dioxide 31.4 mmol/L (21.0-32.0); Chloride 107 mmol/L (98-107); Chol HDL Ratio 2.6; Cholesterol 155 mg/dL (<=200); Estimated GFR (African America >60 (>=60 mL/min/1.73m^2); Estimated GFR (Non-African Ame >60 (>=60 mL/min/1.73m^2); Globulin 3.3 g/dL; Glucose 96 mg/dL (74-106); HDL Cholesterol 59 mg/dL (40-60); LDL Cholesterol Calculated 84.8 mg/dL; Potassium 4.8 mmol/L (3.5-5.1); Sodium 144 mmol/L (136-145); Total Protein 7.1 g/dL (6.4-8.2); Triglycerides 56 mg/dL (<=150); VLDL CHOLESTEROL 11.2 mg/dL
[2024-04-10 05:07] LABS: Vitamin B12 991 pg/mL (232-1245)
== END 2024-04-09 10:41 | disposition home or self-care (01) ==
LOC: LAB 10:41
PROVIDERS: PCP Family Medicine; Visit Provider Family Medicine
DX: Z79.899 Other long term (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 therapy (principal); E78.5 Hyperlipidemia, unspecified; D64.9 Anemia, unspecified; R73.9 Hyperglycemia, unspecified
CPT/HCPCS: 36415; 80053; 80061; 82607; 82746; 83036; 85025

== ENCOUNTER 2024-05-28 15:22 | Emergency (ER) | payer MEDICARE, SELFPAY ==
[2024-05-28] VITALS (27 sets, daily range): BP systolic 112–150; BP diastolic 62–98; PULSE 75–93; TEMP 36.4; O2SAT 91–100; BMI 22.8
--- NOTE | 2024-05-28 15:38 | ECG_ITS ---
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 Measurements Intervals [place] Rate: 80 P: 76 CT: 192 QRS: 46 QRSD: 70 T: 60 QT: 382 QTc: 418 Interpretive Statements 1100 Sinus rhythm 1570 with occasional ventricular premature complexes 9140 abnormal rhythm ECG Compared to ECG 01/06/2020 10:56:13 Ventricular premature complex(es) now present Electronically Signed On 05-28-2024 17:49:22 EST by CARLOS MANUEL DAVIS M.D.
[2024-05-28 15:41] LABS: Glucometer 119 mg/dL (74-106)
--- NOTE | 2024-05-28 15:42 | ED_ITS ---
HPI HPI - General Adult General Chief complaint: Dizziness Stated complaint: DIZZINESS Time Seen by Provider: 05/28/24 15:31 Source: patient Mode of arrival: Wheelchair History of Present Illness HPI narrative: Patient is a 78-year-old male who presents to the emergency department with his for the evaluation of dizziness and lightheadedness that began on waking at 9 AM. Patient states he feels as though he is spinning but also lightheaded like he might pass out. He has some blurry vision but is not currently wearing his glasses. He has no double vision or loss of vision. He denies recent illness, fevers, chest pain, shortness of breath. He denies peripheral paresthesias. He does not believe he is having any trouble with his speech, slurred or finding his words. He has no headache. He states on waking from a nap this afternoon he felt a pop in his head that he is concerned about. He has no history of dizziness. He does not take any blood thinners. Related Data Home Medications ?Medication ?Instructions ?Recorded ?Confirmed finasteride 5 mg tablet 5 mg PO DAILY 06/27/23 05/28/24 simvastatin 40 mg tablet 40 mg PO DAILY 06/27/23 05/28/24 venlafaxine 75 mg capsule,extended 75 mg PO DAILY 06/27/23 05/28/24 release 24 hr donepezil 5 mg tablet 5 mg PO QPM 05/28/24 05/28/24 Allergies Allergy/AdvReac Type Severity Reaction Status Date / Time penicillin G Allergy Mild Verified 09/22/23 08:59 Sulfa (Sulfonamide Allergy Mild Verified 09/22/23 08:59 Antibiotics) Opioid HPI Opioid Management Most Recent Opioid Data: No Data to Display Review of Systems ROS Constitutional Denies: fever or chills Ears, nose, mouth, and throat Denies: throat pain or nasal congestion Cardiovascular Denies: chest pain Respiratory Denies: shortness of breath or cough Gastrointestinal Denies: nausea or vomiting Musculoskeletal Denies: back pain or neck pain Integumentary/Breast Denies: rash Neurological Reports: headache and dizziness; Denies: numbness in extremities or weakness in extremities Hematologic/Lymphatic Denies: easy bruising or easy bleeding [facility] Medical History (Updated 05/28/24 @ 17:46 by CHACHA Deshpande) Dementia ?F03.90 - Unspecified dementia, unspecified severity, without behavioral disturbance, psychotic disturbance, mood disturbance, and anxiety (ICD-10) Depression ?F32.A - Depression, unspecified (ICD-10) High cholesterol ?E78.00 - Pure hypercholesterolemia, unspecified (ICD-10) Exam Narrative Exam Narrative: Gen.: Awake, alert, in no distress Head: Normocephalic, atraumatic ENT: Moist mucous membranes, bilateral TMs clear Respiratory: No respiratory distress, lungs clear bilaterally Cardio: Regular rate and rhythm Gastrointestinal: Abdomen is soft, nondistended and nontender to palpation Extremities: Moves extremities equally, no injuries noted Psych: Normal mood and affect Neuro: No focal neuro deficit, alert and oriented with no facial drooping or slurred speech. Normal movement of all extremities Skin: Warm, dry, intact Constitutional Vital Signs, click to edit/add: Last Vital Signs Temp 97.6 F 05/28/24 15:26 Pulse 85 05/28/24 16:10 Resp 17 05/28/24 16:10 BP 135/62 05/28/24 16:10 Pulse Ox 98 05/28/24 16:10 O2 Del Method Room Air 05/28/24 15:26 Course Vital Signs Vital signs: Vital Signs Temperature 97.6 F 05/28/24 15:26 Pulse Rate 80 05/28/24 15:26 Respiratory Rate 18 05/28/24 15:26 Blood Pressure 140/98 H 05/28/24 15:26 Pulse Oximetry 100 05/28/24 15:26 Oxygen Delivery Method Room Air 05/28/24 15:26 Temperature 97.6 F 05/28/24 15:26 Pulse Rate 85 05/28/24 16:10 Respiratory Rate 17 05/28/24 16:10 Blood Pressure 135/62 05/28/24 16:10 Pulse Oximetry 98 05/28/24 16:10 Oxygen Delivery Method Room Air 05/28/24 15:26 Medical Decision Making MDM Narrative Medical decision making narrative: Patient treated for dizziness with Antivert, Zofran and fluids. Lab studies are grossly unremarkable. CT of the brain was performed immediately with stroke protocol which shows no evidence of acute process, chronic vessel changes noted. Patient with NIH stroke scale of 0. CT angio of the head and neck showed the patient has stenosis of the left CCA at 50%. Plaque in the left bulb area stenosis of less than 50%. Plaque of the right bulb stenosis of approximately 50 to 60%. Internal carotid arteries are patent. Dominant left vertebral artery. Plaque of the left vertebral artery with stenosis of approximately 60%. Patient continues to feel dizzy, we feel he would benefit from an MRI to rule out other acute pathology. Discussed the case with Dr. Stewart for neurology at [facility], who stated if we are able to get an MRI for the patient he does not need any further neurological workup. technical sales engineer and hospitalist were contacted, we are unable to get an MRI of the brain for this patient today or through the weekend. Discussed with Dr. Starkey for hospitalist service at [facility] who accepted the patient for transfer. Patient is stable at this time. SHARED APC VISIT, PHYSICIAN ATTESTATION: [id number] I performed a substantive part of the MDM during the patient?s E/M visit. I personally evaluated and examined the patient. I personally made or approved the documented management plan and acknowledge its risk of complications. ? Medical Records Medical records reviewed: Yes I reviewed the patient's medical records Lab Data Lab results reviewed: Yes I reviewed the patient's lab results Labs: Lab Results 05/28/24 05/28/24 Range/Units 15:36 15:39 WBC 10.1 (4.0-11.0) 10^3/uL RBC 4.45 L (4.70-6.10) 10^6/uL Hgb 13.8 L (14.0-18.0) g/dL Hct 41.8 L (42.0-54.0) % MCV 93.9 (80.0-94.0) fL MCH 31.0 (25.9-34.0) pg MCHC 33.0 (29.9-35.2) g/dL RDW 12.4 (11.0-15.0) % Plt Count 221 (150-450) 10^3/uL MPV 9.4 L (9.5-13.5) fL Neut % (Auto) 62.7 (43.0-75.0) % Lymph % (Auto) 27.2 (20.5-60.0) % [place] % (Auto) 8.0 (1.7-12.0) % Eos % (Auto) 1.3 (0.9-7.0) % Baso % (Auto) 0.4 (0.2-2.0) % Neut # (Auto) 6.4 (1.4-6.5) 10^3/uL Lymph # (Auto) 2.8 (1.2-3.8) 10^3/uL [place] # (Auto) 0.8 (0.3-0.8) 10^3/uL Eos # (Auto) 0.1 (0.0-0.7) 10^3/uL Baso # (Auto) 0.0 (0.0-0.1) 10^3/uL Abs Immat Gran (auto) 0.04 H (0.00-0.03) 10^3/uL Imm/Tot Granulo (auto) 0.4 (0.0-0.5) % PT 10.9 (9.0-11.6) sec INR 1.03 VBG pH 7.365 (7.330-7.430) VBG pCO2 49.5 (40.0-52.0) mmHg Sodium 138 (136-145) mmol/L Potassium 4.2 (3.5-5.1) mmol/L Chloride 103 (98-107) mmol/L Carbon Dioxide 29.4 (21.0-32.0) mmol/L Anion Gap 9.8 BUN 16.0 (7.0-18.0) mg/dL Creatinine 1.03 (0.70-1.30) mg/dL Est GFR ( Amer) >60 (>=60 mL/min/1.73m^2) Est GFR (Non-Af Amer) >60 (>=60 mL/min/1.73m^2) BUN/Creatinine Ratio 15.5 Glucose 130 H (74-106) mg/dL Lactate 2.0 (0.4-2.0) mmol/L Calcium 9.1 (8.5-10.1) mg/dL Magnesium 1.7 L (1.8-2.4) mg/dL Total Bilirubin 0.6 (0.2-1.0) mg/dL AST 23 (15-37) U/L ALT 19 (16-63) U/L Alkaline Phosphatase 73 (46-116) U/L Troponin I High Sens 5.5 (4.0-76.1) pg/mL Total Protein 7.3 (6.4-8.2) g/dL Albumin 3.6 (3.4-5.0) g/dL Globulin 3.7 g/dL Albumin/Globulin Ratio 1.0 TSH 1.105 (0.358-3.740) uIU/mL Ethanol Quant <3 mg/dL POC Glucose 119 H (74-106) mg/dL Imaging Data CT scan - head: Attestation: I have reviewed the pertinent imaging results. Radiologist's impression: CT angio of the head and neck showed the patient has stenosis of the left CCA at 50%. Plaque in the left bulb area stenosis of less than 50%. Plaque of the right bulb stenosis of approximately 50 to 60%. Internal carotid arteries are patent. Dominant left vertebral artery. Plaque of the left vertebral artery with stenosis of approximately 60%. ECG Data Attestation: I personally reviewed and interpreted this ECG as follows: (Normal sinus rhythm at a rate of 80 with occasional PVCs,) Discharge Plan Discharge Chief Complaint: Dizziness Clinical Impression: Dizziness, Lightheadedness Patient Disposition: [facility] Time of Disposition Decision: 17:45 Discharge Location: [facility] Condition: Good Prescriptions / Home Meds: No Action donepezil 5 mg tablet 5 mg PO QPM finasteride 5 mg tablet 5 mg PO DAILY simvastatin 40 mg tablet 40 mg PO DAILY venlafaxine 75 mg capsule,extended release 24hr 75 mg PO DAILY Print Language: Polish Referrals: KEITH ATKINSON [Primary Care Provider] - 1 week
--- OUTSIDE RECORDS SUMMARY | 2024-05-28 15:44 | XMS_ITS | CCD ---
Author Organization [facility] Care Team Providers Care Sr. Social Media & Mobile Manager Name Role Phone Keith Atkinson Unavailable Keith Puente Unavailable Keith Atkinson Primary Care Physician [phone] Teetee Gonzalez Unavailable Unavailable CHINA, DR PARKER Admitting Unavailable CHINA, DR PARKER Attending Unavailable CHINA, DR PARKER Consulting Unavailable CHINA, DR PARKER Primary Care Unavailable DAVE, DR GANN Attending Unavailable JOY, DR GANN Consulting Unavailable DAVE, DR GANN Admitting Unavailable CIHNA, DR PARKER Primary Care Unavailable CHINA, DR PARKER Consulting Unavailable CHINA, DR PARKER Primary Care Unavailable GIRVIN, DR PARKER Admitting Unavailable GIRVIN, DR PARKER Attending Unavailable GIRVIN, DR PARKER Consulting Unavailable ARELIS CARMONA Attending Unavailab Sanjuanita Ferreira Attending Unavailable Sanjuanita JOY Attending Unavailable Keith Atkinson MD Primary Care Provider [phone] CASPER AGUIRRE Attending Unavailable Allergies Allergy Classification Reported Allergen(s) Allergy Type Date of Onset Reaction(s) Facility (20 sources) Penicillin; Translations: [penicillin] Drug Allergy hives [facility] (20 sources) Sulfacetamide Drug Allergy 4 hives [facility] (12 sources) Penicillins; Translations: [penicillins] Drug allergy 4 Hives, Unknown Reaction, hives [facility] Comment on above: pt able to take albu terol (6 sources) Sulfonamides (Antibiotic); Translations: [sulfa drugs] Drug allergy [facility] (1 source) Sulfonamides (Antibiotic) Drug allergy (disorder) [facility] (4 sources) Sulfonamides (Antibiotic) Allergy to substance 4 Unknown Reaction [facility] (2 sources) Sulfonamides (Antibiotic) Propensity to adverse reactions 5 [facility] Medications Current Medications Medication Drug Class(es) Dates Sig (Normalized) Sig (Original) [id number] 200 actuat albuterol 0.09 mg/actuat metered dose inhaler (12 sources) beta2-Adrenergic Agonist Start: 09-26-2023 Albuterol Sulfate (Proair Hfa) 90 mcg/actuation HFA aerosol inhaler Active 2 INH INHALATION Every 4 hours September 25, 2023 11:00pm Start: 06-07-2019 ProAir HFA 108 (90 Base) MCG/ACT NICK 2 inhalations Inhalation up to 4 times per day prn May, Active ciprofloxacin 500 mg oral tablet (1 source) Quinolone Antimicrobial Start: 05-12-2023 End: 06-09-2023 take 1 tablet by mouth every twelve hours Cipro 500 mg Tab 500 mg = 1 tab(s), Oral, q12hr, X 4 week(s), # 56 tab(s), Refills(s) 0, Pharmacy: [facility]/pharmacy #[id number], 177, cm, 01/27/23 11:11:00 [...] Active docusate sodium 50 mg / sennosides, custodial 8.6 mg oral tablet (3 sources) Start: [...] Daily, # 90 tab(s), Refills(s) 3, Pharmacy: [facility]/pharmacy #[id number], 177, cm, 02/05/24 12:10:00 EST, Height/Length Dosing, 74.4, kg, 02/05/24 12:10:00 EST, Weight Dosing Start Date: 02/05/24 Status: Ordered Fish Oils (5 sources) Start: 01-10-2017 take 1200 mg by mouth once daily Fish Oil 1,200 mg, Oral, Daily, Refill(s) 0, Prophylaxis Start Date: 01/10/17 Status: Ordered Fluticasone-Umeclid in-Vilanter (1 source) Anticholinergic, Corticosteroid, beta2-Adrenergic Agonist Start: 04-14-2024 Fluticasone-Umecli din-Vilanter (Trelegy Ellipta) 100-62.5-25 mcg blister with device Active INHALATION April 14, 2024 12:00am hyoscyamine sulfate 0.125 mg oral tablet (1 source) Start: 03-29-2019 take 1 tablet by mouth four times daily hyoscyamine 0.125 mg oral Tab 0.125 mg = 1 tab(s), Oral, QID, Refills(s) 0 Start Date: 03/29/19 Status: Ordered mecobalamin 1 mg chewable tablet (5 sources) Start: 09-26-2023 End: 04-14-2024 take 1 tablet by mouth once daily Mecobalamin (Vitamin B12) 1,000 mcg tablet,chewable Active 1000 MCG PO .COMPLEX April 14, 2024 8:28am 1,000 mcg orally 1 tablet Orally qd x6 days a week; meloxicam 15 mg oral tablet (5 sources) [...] a day for 10 day(s) July, Active niacinamide 100 mg oral tablet (2 sources) take 1 tablet by mouth in the morning niacinamide 100 MG tablet Take 100 mg by mouth in the morning and 100 mg in the evening. Take with meals. Active nystatin [id number] unt/ml oral suspension (10 sources) Polyene Antifungal Start: 05-20-2022 Nystatin 093304 UNIT/ML 5 ml (2.5 ml each side of the mouth) Mouth/Throat qid for 7 days Apr, Active Start: 05-20-2022 Nystatin 31465 0 UNIT/ML 5 ml (2.5 ml each [...] sources) HMG-CoA Reductase Inhibitor Start: 10-14-2023 take 1 tablet by mouth once daily in the evening Simvastatin 40 mg tablet Active 40 MG PO Every evening October 14, 2023 7:28am Start: 05-27-2023 End: 10-14-2023 take 1 tablet by mouth at bedtime Simvastatin 40 mg tablet Discontinued 0 .ROUTE .COMPLEX 90 May 27, 2023 8:53am October 14, 2023 7:29am TAKE 1 TABLET BY MOUTH AT BEDTIME Start: 05-27-2023 End: 10-14-2023 take 1 tablet by mouth at bedtime Simvastatin Discontinued 0 .ROUTE .COMPLEX May 27, 2023 9:53am October 14, 2023 8:29am TAKE 1 TABLET BY MOUTH AT BEDTIME Start: 01-10-2017 End: 05-27-2023 take 1 tablet by mouth once daily Simvastatin 40 mg tablet Discontinued 40 MG PO Daily August 20, 2021 11:00pm May 27, 2023 8:53am sucralfate 1000 mg oral tablet (1 source) Aluminum Complex Start: 07-20-2021 take 1 tablet by mouth every eight hours Carafate 1 GM 1 tablet on an empty stomach Orally tid for 30 day(s) Jun, Active ubidecarenone 30 mg oral capsule (6 sources) Start: 08-21-2021 Coenzyme Q10 ( Co Q-10) 30 mg Capsule Active 30 MG PO Daily August 20, 2021 11:00pm take 2 capsules by mouth once da mely co-enzyme Q-10 30 MG capsule Take 60 mg by mouth Daily Active valACYclovir 1000 mg oral tablet (20 sources) Herpesvirus Nucleoside Analog DNA Polymerase Inhibitor, Herpes Simplex Virus Nucleoside Analog DNA Polymerase Inhibitor, Herpes Zoster Virus Nucleoside Analog DNA Polymerase Inhibitor Start: 01-20-2024 Valacyclovir (Valtr ex) 1 gram tablet Active 1000 MG PO Three times daily January 19, 2024 11:00pm Start: 11-17-2023 End: 11-19-2023 take 1 tablet by mouth three times daily as needed Valacyclovir (Valtrex) 500 mg tablet Discontinued 500 MG PO Three times daily as needed for cold sores November 16, 2023 11:00pm November 19, 2023 12:57pm Start: 01-10-2017 take 1 tablet by trang th once daily Valacyclovir (Valtrex) 500 mg tablet Active 500 MG PO Daily November 19, 2023 12:57pm valACYclovir HCl 500 mg TAKE 1 TABLET THREE TIMES A DAY FOR 10 DAYS DIRECTED NEEDED prn Not-Taking/PRN 24 hr venlafaxine 75 mg extended release oral capsule (20 sources) Serotonin and Norepinephrine Reuptake Inhibitor Start: 10-14-2023 take 1 capsule by mouth once daily Venlafaxine 75 mg capsule,extended release 24hr Active 75 MG PO Daily October 14, 2023 7:28am Start: 09-19-2023 End: 10-14-2023 take 1 capsule by mouth once daily at mealtime Venlafaxine 75 mg capsule,extended release 24hr Discontinued 0 .ROUTE .COMPLEX 90 September 19, 2023 7:09am October 14, 2023 7:29am TAKE 1 CAPSULE BY MOUTH DAILY WITH FOOD Start: 03-04-2019 End: 09-19-2023 take 1 capsule by mouth once daily at mealtime Venlafaxine 75 mg capsule,extended release 24hr Discontinued 75 MG PO Daily September 18, 2023 11:00pm September 19, 2023 7:09am WITH FOOD take 1 tablet by trang th once daily venlafaxine (Effexor) 75 MG tablet Take 75 mg by mouth Daily Active vitamin b12 1 mg extended release oral tablet (10 sources) Vitamin B12 Start: 09-07-2020 take 1 tablet by mouth once daily Vitamin B12 1000 MCG 1 tablet Orally qd x6 days a week Aug, Active Start: 01-10-2017 Vitamin B-12 1 00 microgram, Oral, MonFri, Refills(s) 0, Prophylaxis Start Date: 01/10/17 Status: Ordered take 1 tablet by trang th once daily cyanocobalamin (Vitamin B-12) 1000 MCG tablet Take 1,000 mcg by mouth Daily Active Vitamin B12 1000 MCG (18 sources) Start: 09-07-2020 take 1 tablet by trang th once daily Vitamin B12 1000 MCG 1 [...] Discontinued 0 PO Daily September 26, 2023 8:55am October 14, 2023 7:17am take 2 (5 MG) tablets orally daily Start: 08-21-2021 End: 09-26-2023 take 1 tablet by mouth once daily at bedtime Bisacodyl (Dulcolax (Bisacodyl)) 5 mg Tablet,Delayed Release (Dr/Ec) Discontinued 5 MG PO Daily at bedtime August 20, 2021 11:00pm September 26, 2023 8:57am Start: 08-02-2021 take 2 tablets by [facility] once daily as needed Dulcolax 5 [...] BID, # 60 cap(s), Refills(s) 0, Pharmacy: [facility]/pharmacy #[id number] Start Date: 03/30/19 Status: Ordered pantoprazole 40 mg delayed release oral tablet (18 sources) Proton Pump Inhibitor Start: 08-02-2021 End: 10-14-2023 take 1 tablet by mouth once daily Pantoprazole 40 mg tablet,delayed release (DR/EC) Discontinued 40 MG PO Daily August 20, 2021 11:00pm October 14, 2023 7:18am 60 actuat tiotropium 0.0025 mg/actuat inhalation spray (20 sources) Anticholinergic Start: 09-26-2023 End: 12-17-2023 take 1 puff(s) by inhalation once daily Tiotropium Gordon (Spiriva Respimat) 2.5 mcg/actuation mist Discontinued 2 PUFF INHALATION Daily September 25, 2023 11:00pm December 17, 2023 1:22pm Start: 07-30-2019 take 2 puff(s) by in halation once daily Spiriva Respimat 2.5 MCG/ACT 2 puffs Inhalation Once a day quantity sufficient for 90 days July, Active Start: 07-30-2019 take 2 puff(s) by in halation once daily Spiriva Respimat 2.5 MCG/ACT 2 puffs Inhalation Once a day quantity sufficient for 90 days July, Active take 1 capsule by in halation in the morning tiotropium (Spiriva) [address] 1 capsule into inhaler and inhale in the morning. Active Problems Active Problems Problem Classification Problem [...] Chronic Conditions associated with dizziness or vertigo (7 sources) Vertigo; Translations: [Dizziness and giddiness] 12-17-2023 Episodic Deficiency and other anemia (9 sources) Anemia, unspecified; Translations: [Anemia, unspecified] Onset: 03-13-2021 Resolved: 09-13-2021 Episodic Deficiency and other anemia (4 sources) Anemia; Translations: [Anemia, unspecified] 10-14-2023 Episodic Diabetes mellitus without complication (13 sources) Hyperglycemia, unspecified; Translations: [Hyperglycemia] Onset: 03-13-2021 [...] sources) Candidal stomatitis Episodic Nonspecific chest pain (7 sources) Chest pain, unspecified; Translations: [Chest pain] Episodic Other aftercare (6 sources) 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; Translations: [[facility] CURRENT DRUG THERAPY] Onset: 03-13-2021 Resolved: 09-13-2021 Episodic Other and unspecified benign neoplasm (2 sources) Neoplasm and/or hamartoma; Translations: [Melanocytic nevi, unspecified] 01-20-2024 Episodic Comment on above: left ear Other and unspecified benign neoplasm (2 sources) Melanocytic nevi, unspecified; Translations: [Neoplasm of uncertain [...] [Constipation, unspecified] 08-22-2021 Episodic Other gastrointestinal disorders (7 sources) Constipation, unspecified; Translations: [Constipation, unspecified] Onset: 03-13-2021 Resolved: 09-13-2021 Episodic Other gastrointestinal disorders (5 sources) Dysphagia 03-29-2019 Episodic Other hereditary and degenerative nervous system conditions (2 sources) Impaired cognition; Translations: [Mild cognitive impairment, so stated] 04-26-2024 Chronic Other lower respiratory disease (2 sources) Shortness of breath Episodic Other nervous system disorders (2 sources) Cervical myelopathy; Translations: [Disease of spinal cord, unspecified] 04-26-2024 Chronic Other nutritional; endocrine; and metabolic disorders (3 sources) Abnormal weight gain Onset: 03-13-2021 Resolved: 03-13-2021 Episodic Other nutritional; endocrine; and metabolic disorders (3 sources) Abnormal weight loss; Translations: [Loss of weight] Episodic Other nutritional; endocrine; and metabolic disorders (4 sources) Weight loss; Translations: [Abnormal weight loss] 10-14-2023 Episodic Other screening for suspected conditions (not mental disorders or infectious disease) (12 sources) Abnormal results of thyroid function studies; Translations: [Abnormal blood-gas level] Onset: 03-13-2021 Resolved: 09-13-2021 Episodic Residual codes; unclassified (6 sources) Other amnesia; Translations: [Memory loss] Onset: 03-13-2021 Resolved: 09-13-2021 Episodic Residual codes; unclassified (4 sources) Insomnia; Translations: [Insomnia, unspecified] 09-26-2023 Episodic Residual codes; unclassified (4 sources) Memory impairment; Translations: [Other amnesia] 10-14-2023 Episodic Screening and history of mental health and substance abuse codes (5 sources) Ex-smoker 03-29-2019 Episodic Skin and subcutaneous tissue infections (6 sources) Abscess; Translations: [Cutaneous abscess, unspecified] 10-14-2023 Episodic Spondylosis; intervertebral disc disorders; other back problems (20 sources) Degeneration of lumbar intervertebral disc; Translations: [Other intervertebral disc degeneration, lumbar region] Chronic Unclassified (5 sources) Patient encounter status 03-29-2019 Viral infection (8 sources) Herpesviral vesicular dermatitis; 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] [...] Range Facility Basophils Auto (Bld) [#/Vol] on 04-09-2024 Basophils (Bld) [#/Vol] Automated basophil count 0.0-0.1 [facility] Basophils/100 WBC Auto (Bld) on 04-09-2024 Basophils/100 WBC (Bld) Automated basophil % 0.2-2.0 [facility] Cholesterol in LDL Calc [Mas s/Vol]on 04-09-2024 Cholesterol in LDL [Mass/Vol] Cholesterol in LDL [Mass/volume] in Serum or Plasma by calculation [facility] Comment on above: <100 mg/dl [id number] 0-129 mg/dl NEAR OR ABOVE [id number] mg/dl BORDERLINE [id number] mg/dl HIGH>190 mg/dl VERY HIGH Cholesterol in VLDL Calc [Ma ss/Vol]on 04-09-2024 Cholesterol in VLDL [Mass/Vol] Cholesterol in VLDL [Mass/volume] in Serum or Plasma by calculation [facility] Eosinophils/100 WBC Auto (Bl d)on 04-09-2024 Eosinophils/100 WBC (Bld) Automated eosinophil % 0.9-7.0 [facility] Erythrocyte distribution wid th Auto (RBC) [Ratio]on 04-09-2024 Erythrocyte distribution width (RBC) [Ratio] Erythrocyte distribution width [Ratio] by Automated count 11.0-15.0 [facility] Estimated glomerular filtrat ion rate (GFR) non- Americanon 04-09-2024 GFR/1.73 sq M.predicted among non-blacks MDRD (S/P/Bld) [Vol rate/Area] Estimated glomerular filtration rate (GFR) non- >=60 mL/min/1.73m 2 [facility] Globulin Calc (S) [Mass/Vol] on 04-09-2024 Globulin (S) [Mass/Vol] Serum globulin measurement by calculation (mass/volume) [facility] Glucose mean value [Mass/vol ume] in Blood Estimated from glycated hemoglobinon 04-09-2024 Average glucose Estimated from glycated hemoglobin (Bld) [Mass/Vol] Glucose mean value [Mass/volume] in Blood Estimated from glycated hemoglobin [facility] Hematocrit Auto (Bld) [Volum e fraction]on 04-09-2024 Hematocrit (Bld) [Volume fraction] Hematocrit [Volume Fraction] of Blood by Automated count Low 42.0-54.0 [facility] Hemoglobin [Mass/volume] in Bloodon 04-09-2024 Hemoglobin (Bld) [Mass/Vol] Hemoglobin [Mass/volume] in Blood Low 14.0-18.0 [facility] Laboratory - Chemistry and C hemistry - challengeon 04-09-2024 Albumin [Mass/Vol] 3.8 g/dL 3.4-5.0 [facility] ALP [Catalytic activity/Vol] 63 U/L 46-116 [facility] ALT [Catalytic activity/Vol] 14 U/L Low 16-63 [facility] AST [Catalytic activity/Vol] 18 U/L 15-37 [facility] Bilirubin [Mass/Vol] 0.5 mg/dL 0.2-1.0 [facility] Calcium [Mass/Vol] 9.3 mg/dL 8.5-10.1 [facility] Chloride [Moles/Vol] 107 mmol/L 98-107 [facility] Cholesterol [Mass/Vol] 155 mg/dL <=200 [facility] Cholesterol in HDL [Mass/Vol] 59 mg/dL 40-60 [facility] Comment on above: > or =60 mg/dl - LOW CARDIOVASCULAR RISK<40 mg/dl - HIGH CARDIOVASCULAR RISK CO2 [Moles/Vol] 31.4 mmol/L 21.0-32.0 [facility] Cobalamin (Vitamin B12) [Mass/Vol] 991 pg/mL 232-1245 [facility] Comment on above: Performed at: [address] [id number] Director: Joel Gallego PhD, Phone: [phone] Creatinine [Mass/Vol] 0.77 mg/dL 0.70-1.30 [facility] GFR/1.73 sq M.predicted MDRD (S/P/Bld) [Vol rate/Area] mL/min/{1.73_m2} >=60 mL/min/1.73m 2 [facility] Glucose [Mass/Vol] 96 mg/dL 74-106 [facility] Potassium [Moles/Vol] 4.8 mmol/L 3.5-5.1 [facility] Protein [Mass/Vol] 7.1 g/dL 6.4-8.2 [facility] Sodium [Moles/Vol] 144 mmol/L 136-145 [facility] Triglyceride [Mass/Vol] 56 mg/dL <=150 [facility] Urea nitrogen [Mass/Vol] 17.0 mg/dL 7.0-18.0 [facility] Urea nitrogen/Creatinine [Mass ratio] 22.1 mg/mg [facility] Laboratory - Hematology and Cell countson 04-09-2024 HbA1c (Bld) [Mass fraction] 5.7 % 4.5-6.2 [facility] Comment on above: ADA RECOMMENDED LIMI T 4.0 - 6.0ADA THERAPEUTIC TARGET < 7.0ACTION SUGGESTED> 7.0 Immature granulocytes/100 WBC (Bld) 0.3 % 0.0-0.5 [facility] Leukocytes [#/volume] correc greg for nucleated erythrocytes in Blood by Automated counon 04-09-2024 WBC corrected for nucl RBC Auto (Bld) [#/Vol] Leukocytes [#/volume] corrected for nucleated erythrocytes in Blood by Automated coun 4.0-11.0 [facility] Lymphocytes Auto (Bld) [#/Vo l]on 04-09-2024 Lymphocytes (Bld) [#/Vol] Lymphocytes [#/volume] in Blood by Automated count 1.2-3.8 [facility] Lymphocytes/100 WBC Auto (Bl d)on 04-09-2024 Lymphocytes/100 WBC (Bld) Lymphocytes/100 leukocytes in Blood by Automated count 20.5-60.0 [facility] MCH Auto (RBC) [Entitic mass ]on 04-09-2024 MCH (RBC) [Entitic mass] MCH [Entitic mass] by Automated count 25.9-34.0 [facility] MCHC Auto (RBC) [Mass/Vol]on 04-09-2024 MCHC (RBC) [Mass/Vol] MCHC [Mass/volume] by Automated count 29.9-35.2 [facility] MCV Auto (RBC) [Entitic vol] on 04-09-2024 MCV (RBC) [Entitic vol] MCV [Entitic volume] by Automated count High 80.0-94.0 [facility] Monocytes Auto (Bld) [#/Vol] on 04-09-2024 Monocytes (Bld) [#/Vol] Automated blood monocyte count 0.3-0.8 [facility] Monocytes/100 WBC Auto (Bld) on 04-09-2024 Monocytes/100 WBC (Bld) Automated monocyte % 1.7-12.0 [facility] Neutrophils Auto (Bld) [#/Vo l]on 04-09-2024 Neutrophils (Bld) [#/Vol] Neutrophils [#/volume] in Blood by Automated count 1.4-6.5 [facility] Neutrophils/100 WBC Auto (Bl d)on 04-09-2024 Neutrophils/100 WBC (Bld) Automated neutrophil % 43.0-75.0 [facility] No Panel Informationon 04-09 Eosinophils # (Auto) 0.1 10 3/uL 0.0-0.7 [facility] Folate 9.40 ng/mL 8.60-58.90 [facility] Immature Granulocyte # (Auto) 0.02 10 3/uL 0.00-0.03 [facility] Platelet mean volume Auto (B ld) [Entitic vol]on 04-09-2024 Platelet mean volume (Bld) [Entitic vol] Platelet mean volume [Entitic volume] in Blood by Automated count Low 9.5-13.5 [facility] Platelets Auto (Bld) [#/Vol] on 04-09-2024 Platelets (Bld) [#/Vol] Platelets [#/volume] in Blood by Automated count 150-450 [facility] RBC Auto (Bld) [#/Vol]on RBC (Bld) [#/Vol] Erythrocytes [#/volu me] in Blood by Automated count Low 4.70-6.10 [facility] Serum or plasma albumin/glob ulin mass ratioon 04-09-2024 Albumin/Globulin [Mass ratio] Serum or plasma albumin/globulin mass ratio [facility] Serum or plasma anion gap de terminationon 04-09-2024 Anion gap [Moles/Vol] Serum or plasma anion gap determination [facility] Serum or plasma total choles terol/high density lipoprotein (HDL) cholesterol mass melly 04-09-2024 Cholesterol.total/C holesterol in HDL [Mass ratio] Serum or plasma total cholesterol/high density lipoprotein (HDL) cholesterol mass rat [facility] Comment on above: 3.3 - 4.4 LOW RISK4. 4 - 7.1 AVERAGE RISK7.1 - 11.0 MODERATE RISK>11.0 HIGH RISK Reminderson 02-13-2024 Reminders Reminders From: Amy Linn To: EU - Administrative; Sent: 02/13/2024 12:16:44 EST Show up: 05/08/2025 12:16:00 EST Subject: Need 2 yr recheck /Jan 2026 Due Date/Time: 02/18/2026 12:16:00 EST Reminder/Recall Patient will need a 2 yr recheck with PSA with either PRW or REMBERTO. Normal [facility] Urology Office/Clinic Noteon 02-09-2024 Urology Office/Clinic [...] INFANTE, TL Mackey, URL In 2 years [address] [place] [address] Additional Instructions: Patient Education Benign [...] Ca (more content not included)... Normal [facility] Comment on above: Result Comment: Elec tronically Signed By: TL CARMONA PA-C\.klever\Date and Time Signed: 02/09/24 15:03 EST No Panel Informationon 01-20 Free Prostate Specific Antigen 0.09 ng/mL N/A [facility] Comment on above: [employer] ECLIA methodol ogy. Prostate Specific Antigen Total 0.4 ng/mL 0.0-4.0 [facility] Comment on above: Nissa ECLIA methodol ogy.According to the [place] [employer], Serum PSAshould decrease and remain at undetectable levels afterradical prostatectomy. The AUA defines biochemicalrecurrence as an initial PSA value 0.2 ng/mL or greaterfollowed by a subsequent confirmatory PSA value 0.2 ng/mLor greater. Values obtained with different assay methods orkits cannot be used interchangeably. Results cannot beinterpreted as absolute evidence of the presence or absenceof malignant disease. Serum or plasma free prostat e specific antigen (PSA)/total PSA ratioon 01-21-2024 Free PSA/Total PSA [Mass fraction] Serum or plasma free prostate specific antigen (PSA)/total PSA ratio . [facility] Comment on above: The table below list s the probability of prostate cancer formen with non-suspicious MARCIA results and total PSA between4 and 10 ng/mL, by patient age (Manjeet et al, LINA 1998,[id number]). % Free PSA 50-64 yr 65-75 yr 0.00-10.00% 56% 55% 10.01-15.00% 24% 35% 15.01-20.00% 17% 23% 20.01-25.00% 10% 20% >25.00% 5% 9%Please note: Manjeet et al did not make specific recommendations regarding the use of percent free PSA for any other population of men.Performed at: [address] [id number] Director: Joel Gallego PhD, Phone: [phone] Hemoglobin [Mass/volume] in Bloodon 12-18-2023 Hemoglobin (Bld) [Mass/Vol] 13.5 g/dL Low 14.0-18.0 [facility] Basophils Auto (Bld) [#/Vol] on 10-09-2023 Basophils (Bld) [#/Vol] 0.0 10 3/uL 0.0-0.1 [facility] Basophils/100 WBC Auto (Bld) on 10-09-2023 Basophils/100 WBC (Bld) 0.4 % 0.2-2.0 [facility] Cholesterol in LDL Calc [Mas s/Vol]on 10-09-2023 Cholesterol in LDL [Mass/Vol] 111.0 mg/dL [facility] Comment on above: <100 mg/dl [id number] 0-129 mg/dl NEAR OR ABOVE [id number] mg/dl BORDERLINE [id number] mg/dl HIGH>190 mg/dl VERY HIGH Cholesterol in VLDL Calc [Ma ss/Vol]on 10-09-2023 Cholesterol in VLDL [Mass/Vol] 18.8 mg/dL [facility] Eosinophils/100 WBC Auto (Bl d)on 10-09-2023 Eosinophils/100 WBC (Bld) 1.1 % 0.9-7.0 [facility] [facility] Erythrocyte distribution wid th Auto (RBC) [Ratio]on 10-09-2023 Erythrocyte distribution width (RBC) [Ratio] 13.1 % 11.0-15.0 [facility] Estimated glomerular filtrat ion rate (GFR) non- Americanon 10-09-2023 GFR/1.73 sq M.predicted among non-blacks MDRD (S/P/Bld) [Vol rate/Area] mL/min/{1.73_m2} >=60 [facility] Globulin Calc (S) [Mass/Vol] on 10-09-2023 Globulin (S) [Mass/Vol] 3.7 g/dL [facility] Glucose mean value [Mass/vol ume] in Blood Estimated from glycated hemoglobinon 10-09-2023 Average glucose Estimated from glycated hemoglobin (Bld) [Mass/Vol] 108 mg/dL [facility] Hematocrit Auto (Bld) [Volum e fraction]on 10-09-2023 Hematocrit (Bld) [Volume fraction] 42.4 % 42.0-54.0 [facility] Hemoglobin [Mass/volume] in Bloodon 10-09-2023 Hemoglobin (Bld) [Mass/Vol] 13.7 g/dL Low 14.0-18.0 [facility] Laboratory - Chemistry and C hemistry - challengeon 10-09-2023 Albumin [Mass/Vol] 3.6 g/dL 3.4-5.0 [facility] ALP [Catalytic activity/Vol] 63 U/L 46-116 [facility] ALT [Catalytic activity/Vol] 31 U/L 16-63 [facility] AST [Catalytic activity/Vol] 24 U/L 15-37 [facility] Bilirubin [Mass/Vol] 0.7 mg/dL 0.2-1.0 [facility] Calcium [Mass/Vol] 9.1 mg/dL 8.5-10.1 [facility] Chloride [Moles/Vol] 103 mmol/L 98-107 [facility] Cholesterol [Mass/Vol] 192 mg/dL <=200 [facility] Cholesterol in HDL [Mass/Vol] 63 mg/dL High 40-60 [facility] Comment on above: > or =60 mg/dl - LOW CARDIOVASCULAR RISK<40 mg/dl - HIGH CARDIOVASCULAR RISK CO2 [Moles/Vol] 28.9 mmol/L 21.0-32.0 [facility] Cobalamin (Vitamin B12) [Mass/Vol] 761.0 pg/mL 193.0-986.0 [facility] Creatinine [Mass/Vol] 0.79 mg/dL 0.70-1.30 [facility] GFR/1.73 sq M.predicted MDRD (S/P/Bld) [Vol rate/Area] mL/min/{1.73_m2} >=60 [facility] Glucose [Mass/Vol] 104 mg/dL 74-106 [facility] Potassium [Moles/Vol] 4.5 mmol/L 3.5-5.1 [facility] Protein [Mass/Vol] 7.3 g/dL 6.4-8.2 [facility] Sodium [Moles/Vol] 138 mmol/L 136-145 [facility] Triglyceride [Mass/Vol] 94 mg/dL <=150 [facility] TSH Qn 1.603 m[IU]/L 0.358-3.740 [facility] Urea nitrogen [Mass/Vol] 15.0 mg/dL 7.0-18.0 [facility] Urea nitrogen/Creatinine [Mass ratio] 19.0 mg/mg [facility] Laboratory - Hematology and Cell countson 10-09-2023 HbA1c (Bld) [Mass fraction] 5.4 % 4.5-6.2 [facility] Comment on above: ADA RECOMMENDED LIMI T 4.0 - 6.0ADA THERAPEUTIC TARGET < 7.0ACTION SUGGESTED> 7.0 Immature granulocytes/100 WBC (Bld) 0.3 % 0.0-0.5 [facility] Leukocytes [#/volume] correc greg for nucleated erythrocytes in Blood by Automated counon 10-09-2023 WBC corrected for nucl RBC Auto (Bld) [#/Vol] 7.9 10 3/uL 4.0-11.0 [facility] Lymphocytes Auto (Bld) [#/Vo l]on 10-09-2023 Lymphocytes (Bld) [#/Vol] 2.1 10 3/uL 1.2-3.8 [facility] Lymphocytes/100 WBC Auto (Bl d)on 10-09-2023 Lymphocytes/100 WBC (Bld) 25.9 % 20.5-60.0 [facility] MCH Auto (RBC) [Entitic mass ]on 10-09-2023 MCH (RBC) [Entitic mass] 31.4 pg 25.9-34.0 [facility] MCHC Auto (RBC) [Mass/Vol]on 10-09-2023 MCHC (RBC) [Mass/Vol] 32.3 g/dL 29.9-35.2 [facility] MCV Auto (RBC) [Entitic vol] on 10-09-2023 MCV (RBC) [Entitic vol] 97.0 fL High 80.0-94.0 [facility] Monocytes Auto (Bld) [#/Vol] on 10-09-2023 Monocytes (Bld) [#/Vol] 0.7 10 3/uL 0.3-0.8 [facility] Monocytes/100 WBC Auto (Bld) on 10-09-2023 Monocytes/100 WBC (Bld) 9.1 % 1.7-12.0 [facility] Neutrophils Auto (Bld) [#/Vo l]on 10-09-2023 Neutrophils (Bld) [#/Vol] 5.0 10 3/uL 1.4-6.5 [facility] Neutrophils/100 WBC Auto (Bl d)on 10-09-2023 Neutrophils/100 WBC (Bld) 63.2 % 43.0-75.0 [facility] No Panel Informationon 10-08 Eosinophils # (Auto) 0.1 10 3/uL 0.0-0.7 [facility] Folate 10.90 ng/mL 8.60-58.90 [facility] Immature Granulocyte # (Auto) 0.02 10 3/uL 0.00-0.03 [facility] Platelet mean volume Auto (B ld) [Entitic vol]on 10-09-2023 Platelet mean volume (Bld) [Entitic vol] 9.1 fL Low 9.5-13.5 [facility] Platelets Auto (Bld) [#/Vol] on 10-09-2023 Platelets (Bld) [#/Vol] 234 10 3/uL 150-450 [facility] RBC Auto (Bld) [#/Vol]on RBC (Bld) [#/Vol] 4.37 10 6/uL Low 4.70-6.10 [facility] Serum or plasma albumin/glob ulin mass ratioon 10-09-2023 Albumin/Globulin [Mass ratio] 1.0 {ratio} [facility] Serum or plasma anion gap de terminationon 10-09-2023 Anion gap [Moles/Vol] 10.6 mmol/L [facility] Serum or plasma total choles terol/high density lipoprotein (HDL) cholesterol mass melly 10-09-2023 Cholesterol.total/C holesterol in HDL [Mass ratio] 3.0 {ratio} [facility] Comment on above: 3.3 - 4.4 LOW RISK4. 4 - 7.1 AVERAGE RISK7.1 - 11.0 MODERATE RISK>11.0 HIGH RISK CBC AUTO DIFFon 03-25-2022 BASO # 0.0 103/ul Normal 0.0-0.1 [facility] Comment on above: Performed By: #### L IPID, CMP, TSH #### [facility] [address] [place] [address] Dr. Peewee Russell Basophils/100 WBC (Bld) 0.3 % Normal 0.2-2.0 [facility] Comment on above: Performed By: #### L IPID, CMP, TSH #### [facility] [address] [place] [address] Dr. Peewee Russell EO # 0.1 103/ul Normal 0.0-0.7 [facility] Comment on above: Performed By: #### L IPID, CMP, TSH #### [facility] [address] [place] [address] Dr. Peewee Russell Eosinophils/100 WBC (Bld) 1.3 % Normal 0.9-7.0 [facility] Comment on above: Performed By: #### L IPID, CMP, TSH #### [facility] [address] [place] [address] Dr. Peewee Russell Erythrocyte distribution width (RBC) [Ratio] 12.4 % Normal 11.0-15.0 [facility] Comment on above: Performed By: #### L IPID, CMP, TSH #### [facility] [address] [place] [address] Dr. Peewee Russell Hematocrit (Bld) [Volume fraction] 43.2 % Normal 42.0-54.0 [facility] Comment on above: Performed By: #### L IPID, CMP, TSH #### [facility] [address] [place] [address] Dr. Peweee Russell Hemoglobin (Bld) [Mass/Vol] 14.3 g/dL Normal 14.0-18.0 [facility] Comment on above: Performed By: #### L IPID, CMP, TSH #### [facility] [address] [address] [address] Peewee Russell IG # 0.02 10e3/ul Normal 0.00-0.03 [facility] Comment on above: Performed By: #### L IPID, CMP, TSH #### [facility] [address] [address] [address] Peewee Russell IG % 0.3 % Normal 0.0-0.5 [facility] Comment on above: Performed By: #### L IPID, CMP, TSH #### [facility] [address] [place] [address] Dr. Peewee Russell LYMPH # 2.4 103/ul Normal 1.2-3.8 [facility] Comment on above: Performed By: #### L IPID, CMP, TSH #### [facility] [address] [place] [address] Dr. Peewee Russell Lymphocytes/100 WBC (Bld) 30.0 % Normal 20.5-60.0 [facility] Comment on above: Performed By: #### L IPID, CMP, TSH #### [facility] [address] [address] [address] Peewee Russell MANUAL DIFF REQ NO Normal [facility] Comment on above: Performed By: #### L IPID, CMP, TSH #### [facility] [address] [place] [address] Dr. Peewee Russell MCH (RBC) [Entitic mass] 31.0 pg Normal 25.9-34.0 [facility] Comment on above: Performed By: #### L IPID, CMP, TSH #### [facility] [address] [place] [address] Dr. Peweee Russell MCHC (RBC) [Mass/Vol] 33.1 g/dL Normal 29.9-35.2 [facility] Comment on above: Performed By: #### L IPID, CMP, TSH #### [facility] [address] [place] [address] Dr. Peewee Russell MCV (RBC) [Entitic vol] 93.7 fL Normal 80.0-94.0 [facility] Comment on above: Performed By: #### L IPID, CMP, TSH #### [facility] [address] [place] [address] Dr. Peewee Russell MONO # 0.7 103/ul Normal 0.3-0.8 [facility] Comment on above: Performed By: #### L IPID, CMP, TSH #### [facility] [address] [place] [address] Dr. Peewee Russell Monocytes/100 WBC (Bld) 8.4 % Normal 1.7-12.0 [facility] Comment on above: Performed By: #### L IPID, CMP, TSH #### [facility] [address] [place] [address] Dr. Peewee Russell NEUT # 4.7 103/ul Normal 1.4-6.5 [facility] Comment on above: Performed By: #### L IPID, CMP, TSH #### [facility] [address] [place] [address] Dr. Peewee Russell Neutrophils/100 WBC (Bld) 59.7 % Normal 43.0-75.0 [facility] Comment on above: Performed By: #### L IPID, CMP, TSH #### [facility] [address] [place] [address] Dr. Peewee Russell Platelet mean volume (Bld) [Entitic vol] 8.4 fL Critically low 9.5-13.5 [facility] Comment on above: Performed By: #### L IPID, CMP, TSH #### [facility] [address] [place] [address] Dr. Peewee Russell PLT 208 103/ul Normal 150-450 [facility] Comment on above: Performed By: #### L IPID, CMP, TSH #### [facility] [address] [place] [address] Dr. Peewee Russell RBC 4.61 106/ul Critically low 4.70-6.10 [facility] Comment on above: Performed By: #### L IPID, CMP, TSH #### [facility] [address] [address] [address] Peewee Russell WBC 7.9 103/ul Normal 4.0-11.0 [facility] Comment on above: Performed By: #### L IPID, CMP, TSH #### [facility] [address] [address] [address] Peewee Russell GLYCOHEMOGLOBIN A1Con 2022 ADA RECOMMENDATION SEE BELOW Normal [facility] Comment on above: Result Comment: ADA RECOMMENDED LIMIT 4.0 - 6.0 ADA THERAPEUTIC TARGET < 7.0 ACTION SUGGESTED > 7.0 Performed By: #### L IPID, CMP, TSH #### [facility] [address] [address] [address] Peewee Russell Glucose [Mass/Vol] 108 mg/dL Normal [facility] Comment on above: Performed By: #### L IPID, CMP, TSH #### [facility] [address] [place] [address] Dr. Peewee Russell HbA1c (Bld) [Mass fraction] 5.4 % Normal 4.5-6.2 [facility] Comment on above: Performed By: #### L IPID, CMP, TSH #### [facility] [address] [address] [address] Peewee Russell LIPID PROFILEon 03-25-2022 CHOL-HDL RATIO NORM SEE BELOW Normal [facility] Comment on above: Result Comment: 3.3 - 4.4 LOW RISK 4.4 - 7.1 AVERAGE RISK 7.1 - 11.0 MODERATE RISK >11.0 HIGH RISK Performed By: #### L IPID, CMP, TSH #### [facility] [address] [place] [address] Dr. Peewee Russell Cholesterol [Mass/Vol] 188 mg/dL Normal <=200 [facility] Comment on above: Performed By: #### L IPID, CMP, TSH #### [facility] [address] [address] [address] Peewee Russell Cholesterol in HDL [Mass/Vol] 65 mg/dL Critically high 40-60 [facility] Comment on above: Performed By: #### L IPID, CMP, TSH #### [facility] [address] [address] [address] Peewee Russell Cholesterol in LDL [Mass/Vol] 107.6 mg/dL Normal [facility] Comment on above: Performed By: #### L IPID, CMP, TSH #### [facility] [address] [address] [address] Peewee Russell Cholesterol.total/C holesterol in HDL [Mass ratio] 2.9 {ratio} Normal [facility] Comment on above: Performed By: #### L IPID, CMP, TSH #### [facility] [address] [address] [address] Peewee Russell HDL NORMAL > or = 60 mg/dl - LO W CARDIOVASCULAR RISK <40 mg/dl - HIGH CARDIOVASCULAR RISK Normal [facility] Comment on above: Performed By: #### L IPID, CMP, TSH #### [facility] [address] [address] [address] Peewee Russell LDL CALC NORMAL SEE BELOW Normal [facility] Comment on above: Result Comment: <100 mg/dl OPTIMAL 100 - 129 mg/dl NEAR OR ABOVE OPTIMAL 130 - 159 mg/dl BORDERLINE HIGH 160 - 189 mg/dl HIGH >190 mg/dl VERY HIGH Performed By: #### L IPID, CMP, TSH #### [facility] [address] [address] [address] Peewee Russell Triglyceride [Mass/Vol] 77 mg/dL Normal <=150 [facility] Comment on above: Performed By: #### L IPID, CMP, TSH #### [facility] [address] [address] [address] Peewee Russell VLDL CALC 15.4 mg/dL Normal [facility] Comment on above: Performed By: #### L IPID, CMP, TSH #### [facility] [address] [address] [address] Peewee Russell PROF 14(COMP METB)on 023 Albumin [Mass/Vol] 3.7 g/dL Normal 3.4-5.0 [facility] Comment on above: Performed By: #### L IPID, CMP, TSH #### [facility] [address] [address] [address] Peewee Russell Albumin/Globulin [Mass ratio] 1.0 {ratio} Normal [facility] Comment on above: Performed By: #### L IPID, CMP, TSH #### [facility] [address] [address] [address] Peewee Russell ALP [Catalytic activity/Vol] 68 U/L Normal 46-116 [facility] Comment on above: Performed By: #### L IPID, CMP, TSH #### [facility] [address] [address] [address] Peewee Russell ALT [Catalytic activity/Vol] 19 U/L Normal 16-63 [facility] Comment on above: Performed By: #### L IPID, CMP, TSH #### [facility] [address] [address] [address] Peewee Russell Anion gap [Moles/Vol] 8.3 mmol/L Normal [facility] Comment on above: Performed By: #### L IPID, CMP, TSH #### [facility] [address] [address] [address] Peewee Russell AST [Catalytic activity/Vol] 20 U/L Normal 15-37 [facility] Comment on above: Performed By: #### L IPID, CMP, TSH #### [facility] [address] [address] [address] Peewee Russell Bilirubin [Mass/Vol] 0.5 mg/dL Normal 0.2-1.0 [facility] Comment on above: Performed By: #### L IPID, CMP, TSH #### [facility] [address] [address] [address] Peewee Russell Calcium [Mass/Vol] 9.1 mg/dL Normal 8.5-10.1 [facility] Comment on above: Performed By: #### L IPID, CMP, TSH #### [facility] [address] [address] [address] Peewee Russell Chloride [Moles/Vol] 103 mmol/L Normal 98-107 [facility] Comment on above: Performed By: #### L IPID, CMP, TSH #### [facility] [address] [address] [address] Peewee Russell CO2 [Moles/Vol] 32.9 mmol/L Critically high 21.0-32.0 [facility] Comment on above: Performed By: #### L IPID, CMP, TSH #### [facility] [address] [address] [address] Peewee Russell Creatinine [Mass/Vol] 0.75 mg/dL Normal 0.70-1.30 [facility] Comment on above: Performed By: #### L IPID, CMP, TSH #### [facility] [address] [address] [address] Peewee Russell EGFR-AF TAJIK >60 Normal >=60 [facility] Comment on above: Performed By: #### L IPID, CMP, TSH #### [facility] [address] [address] [address] Peewee Russell EGFR-NON AF TAJIK >60 Normal >=60 [facility] Comment on above: Performed By: #### L IPID, CMP, TSH #### [facility] [address] [address] [address] Peewee Russell Globulin (S) [Mass/Vol] 3.6 g/dL Normal [facility] Comment on above: Performed By: #### L IPID, CMP, TSH #### [facility] [address] [address] [address] Peewee Russell Glucose [Mass/Vol] 114 mg/dL Critically high 74-106 [facility] Comment on above: Performed By: #### L IPID, CMP, TSH #### [facility] [address] [address] [address] Peewee Russell Potassium [Moles/Vol] 4.2 mmol/L Normal 3.5-5.1 [facility] Comment on above: Performed By: #### L IPID, CMP, TSH #### [facility] [address] [address] [address] Peewee Russell Protein [Mass/Vol] 7.3 g/dL Normal 6.4-8.2 [facility] Comment on above: Performed By: #### L IPID, CMP, TSH #### [facility] [address] [place] [address] Dr. Peewee Russell Sodium [Moles/Vol] 140 mmol/L Normal 136-145 [facility] Comment on above: Performed By: #### L IPID, CMP, TSH #### [facility] [address] [place] [address] Dr. Peewee Russell Urea nitrogen [Mass/Vol] 16.0 mg/dL Normal 7.0-18.0 [facility] Comment on above: Performed By: #### L IPID CMP, TSH #### [facility] [address] [place] [address] Dr. Peewee Russell Urea nitrogen/Creatinine [Mass ratio] 21.3 mg/mg Normal [facility] Comment on above: Performed By: #### L IPID, CMP, TSH #### [facility] [address] [place] [address] Dr. Peewee Russell TSHon 03-25-2022 TSH 1.754 uIU/mL Normal 0.358-3.740 [facility] Comment on above: Performed By: #### L IPID, CMP, TSH #### [facility] [address] [place] [address] Dr. Peewee Russell VIT B12 AND FOLATEon 023 Cobalamin (Vitamin B12) [Mass/Vol] 1002.0 pg/mL Critically high 193.0-986.0 [facility] Comment on above: Performed By: #### L IPID, CMP, TSH #### [facility] [address] [place] [address] Dr. Peewee Russell FOLATE 16.00 ng/mL Normal 8.60-58.90 [facility] Comment on above: Performed By: #### L IPID, CMP, TSH #### [facility] [address] [place] [address] Dr. Peewee Russell FOLATE ([facility])on 2 Folate 7.8 ng/mL Normal >3.0 [facility] Comment on above: Result Comment: A se rum folate concentration of less than 3.1 ng/mL is considered to represent clinical deficiency. Performed By: #### L IPID, CMP, TSH #### [facility] [address] [place] [address] Dr. Peewee Russell CBC AUTO DIFFon 09-10-2021 BASO # 0.0 103/ul Normal 0.0-0.1 [facility] Comment on above: Performed By: #### C BC #### [facility] [address] [place] [address] Dr. Peewee Russell Basophils/100 WBC (Bld) 0.5 % Normal 0.2-2.0 [facility] Comment on above: Performed By: #### C BC #### [facility] [address] [place] [address] Dr. Peewee Russell EO # 0.1 103/ul Normal 0.0-0.7 [facility] Comment on above: Performed By: #### C BC #### [facility] [address] [place] [address] Dr. Peewee Russell Eosinophils/100 WBC (Bld) 1.3 % Normal 0.9-7.0 [facility] Comment on above: Performed By: #### C BC #### [facility] [address] [place] [address] Dr. Peewee Russell Erythrocyte distribution width (RBC) [Ratio] 13.3 % Normal 11.0-15.0 [facility] Comment on above: Performed By: #### C BC #### [facility] [address] [place] [address] Dr. Peewee Russell Hematocrit (Bld) [Volume fraction] 42.1 % Normal 42.0-54.0 [facility] Comment on above: Performed By: #### C BC #### [facility] [address] [place] [address] Dr. Peewee Russell Hemoglobin (Bld) [Mass/Vol] 13.9 g/dL Critically low 14.0-18.0 [facility] Comment on above: Performed By: #### C BC #### [facility] [address] [place] [address] Dr. Peewee Russell IG # 0.03 10e3/ul Normal 0.00-0.03 [facility] Comment on above: Performed By: #### C BC #### [facility] [address] [place] [address] Dr. Peewee Russell IG % 0.4 % Normal 0.0-0.5 [facility] Comment on above: Performed By: #### C BC #### [facility] [address] [place] [address] Dr. Peewee Russell LYMPH # 1.9 103/ul Normal 1.2-3.8 [facility] Comment on above: Performed By: #### C BC #### [facility] [address] [place] [address] Dr. Peewee Russell Lymphocytes/100 WBC (Bld) 23.0 % Normal 20.5-60.0 [facility] Comment on above: Performed By: #### C BC #### [facility] [address] [place] [address] Dr. Peewee Russell MANUAL DIFF REQ NO Normal [facility] Comment on above: Performed By: #### C BC #### [facility] [address] [place] [address] Dr. Peewee Russell MCH (RBC) [Entitic mass] 32.1 pg Normal 25.9-34.0 [facility] Comment on above: Performed By: #### C BC #### [facility] [address] [place] [address] Dr. Peewee Russell MCHC (RBC) [Mass/Vol] 33.0 g/dL Normal 29.9-35.2 [facility] Comment on above: Performed By: #### C BC #### [facility] [address] [place] [address] Dr. Peewee Russell MCV (RBC) [Entitic vol] 97.2 fL Critically high 80.0-94.0 [facility] Comment on above: Performed By: #### C BC #### [facility] [address] [address] [address] Peewee Russell MONO # 0.6 103/ul Normal 0.3-0.8 [facility] Comment on above: Performed By: #### C BC #### [facility] [address] [address] [address] Peewee Russell Monocytes/100 WBC (Bld) 7.2 % Normal 1.7-12.0 [facility] Comment on above: Performed By: #### C BC #### [facility] [address] [address] [address] Peewee Russell NEUT # 5.7 103/ul Normal 1.4-6.5 [facility] Comment on above: Performed By: #### C BC #### [facility] [facility] [address] [place] [address] Dr. Peewee Russell Neutrophils/100 WBC (Bld) 67.6 % Normal 43.0-75.0 [facility] Comment on above: Performed By: #### C BC #### [facility] [address] [place] [address] Dr. Peewee Russell Platelet mean volume (Bld) [Entitic vol] 8.9 fL Critically low 9.5-13.5 [facility] Comment on above: Performed By: #### C BC #### [facility] [address] [place] [address] Dr. Peewee Russell PLT 239 103/ul Normal 150-450 [facility] Comment on above: Performed By: #### C BC #### [facility] [address] [address] [address] Peewee Russell RBC 4.33 106/ul Critically low 4.70-6.10 [facility] Comment on above: Performed By: #### C BC #### [facility] [address] [place] [address] Dr. Peewee Russell WBC 8.4 103/ul Normal 4.0-11.0 [facility] Comment on above: Performed By: #### C BC #### [facility] [address] [place] [address] Dr. Peewee Russell GLYCOHEMOGLOBIN A1Con 2021 ADA RECOMMENDATION SEE BELOW Normal [facility] Comment on above: Result Comment: ADA RECOMMENDED LIMIT 4.0 - 6.0 ADA THERAPEUTIC TARGET < 7.0 ACTION SUGGESTED > 7.0 Performed By: #### A 1C #### [facility] [address] [place] [address] Dr. Peewee Russell Glucose [Mass/Vol] 108 mg/dL Normal [facility] Comment on above: Performed By: #### A 1C #### [facility] [address] [address] [address] Peewee Russell HbA1c (Bld) [Mass fraction] 5.4 % Normal 4.5-6.2 [facility] Comment on above: Performed By: #### A 1C #### [facility] [address] [place] [address] Dr. Peewee Russell LIPID PROFILEon 09-10-2021 CHOL-HDL RATIO NORM SEE BELOW Normal [facility] Comment on above: Result Comment: 3.3 - 4.4 LOW RISK 4.4 - 7.1 AVERAGE RISK 7.1 - 11.0 MODERATE RISK >11.0 HIGH RISK Performed By: #### T SH, LIPID, CMP #### [facility] [address] [place] [address] Dr. Peewee Russell Cholesterol [Mass/Vol] 169 mg/dL Normal <=200 [facility] Comment on above: Performed By: #### T SH, LIPID, CMP #### [facility] [address] [place] [address] Dr. Peewee Russell Cholesterol in HDL [Mass/Vol] 70 mg/dL Critically high 40-60 [facility] Comment on above: Performed By: #### T SH, LIPID, CMP #### [facility] [address] [place] [address] Dr. Peewee Russell Cholesterol in LDL [Mass/Vol] 90.4 mg/dL Normal [facility] Comment on above: Performed By: #### T SH, LIPID, CMP #### [facility] [address] [place] [address] Dr. Peewee Russell Cholesterol.total/C holesterol in HDL [Mass ratio] 2.4 {ratio} Normal [facility] Comment on above: Performed By: #### T SH, LIPID, CMP #### [facility] [address] [address] [address] Peewee Russell HDL NORMAL > or = 60 mg/dl - LO W CARDIOVASCULAR RISK <40 mg/dl - HIGH CARDIOVASCULAR RISK Normal [facility] Comment on above: Performed By: #### T SH, LIPID, CMP #### [facility] [address] [address] [address] Peewee Russell LDL CALC NORMAL SEE BELOW Normal [facility] Comment on above: Result Comment: <100 mg/dl OPTIMAL 100 - 129 mg/dl NEAR OR ABOVE OPTIMAL 130 - 159 mg/dl BORDERLINE HIGH 160 - 189 mg/dl HIGH >190 mg/dl VERY HIGH Performed By: #### T SH, LIPID, CMP #### [facility] [address] [address] [address] Peewee Russell Triglyceride [Mass/Vol] 43 mg/dL Normal <=150 [facility] Comment on above: Performed By: #### T SH, LIPID, CMP #### [facility] [address] [address] [address] Peewee Russell VLDL CALC 8.6 mg/dL Normal [facility] Comment on above: Performed By: #### T SH, LIPID, CMP #### [facility] [address] [address] [address] Peewee Russell PROF 14(COMP METB)on 022 Albumin [Mass/Vol] 3.7 g/dL Normal 3.4-5.0 [facility] Comment on above: Performed By: #### T SH, LIPID, CMP #### [facility] [address] [address] [address] Peewee Russell Albumin/Globulin [Mass ratio] 1.0 {ratio} Normal [facility] Comment on above: Performed By: #### T SH, LIPID, CMP #### [facility] [address] [address] [address] Peewee Russell ALP [Catalytic activity/Vol] 65 U/L Normal 46-116 [facility] Comment on above: Performed By: #### T SH, LIPID, CMP #### [facility] [address] [address] [address] Peewee Russell ALT [Catalytic activity/Vol] 29 U/L Normal 16-63 [facility] Comment on above: Performed By: #### T SH, LIPID, CMP #### [facility] [address] [address] [address] Peewee Russell Anion gap [Moles/Vol] 9.6 mmol/L Normal [facility] Comment on above: Performed By: #### T SH, LIPID, CMP #### [facility] [address] [address] [address] Peewee Russell AST [Catalytic activity/Vol] 21 U/L Normal 15-37 [facility] Comment on above: Performed By: #### T SH, LIPID, CMP #### [facility] [address] [place] [address] Dr. Peewee Russell Bilirubin [Mass/Vol] 0.5 mg/dL Normal 0.2-1.0 [facility] Comment on above: Performed By: #### T SH, LIPID, CMP #### [facility] [address] [place] [address] Dr. Peewee Russell Calcium [Mass/Vol] 9.0 mg/dL Normal 8.5-10.1 [facility] Comment on above: Performed By: #### T SH, LIPID, CMP #### [facility] [address] [place] [address] Dr. Peewee Russell Chloride [Moles/Vol] 104 mmol/L Normal 98-107 [facility] Comment on above: Performed By: #### T SH, LIPID, CMP #### [facility] [address] [address] [address] Peewee Russell CO2 [Moles/Vol] 31.0 mmol/L Normal 21.0-32.0 [facility] Comment on above: Performed By: #### T SH, LIPID, CMP #### [facility] [address] [address] [address] Peewee Russell Creatinine [Mass/Vol] 0.75 mg/dL Normal 0.70-1.30 [facility] Comment on above: Performed By: #### T SH, LIPID, CMP #### [facility] [address] [place] [address] Dr. Peewee Russell EGFR-AF TAJIK >60 Normal >=60 [facility] Comment on above: Performed By: #### T SH, LIPID, CMP #### [facility] [address] [address] [address] Peewee Russell EGFR-NON AF TAJIK >60 Normal >=60 [facility] Comment on above: Performed By: #### T SH, LIPID, CMP #### [facility] [address] [place] [address] Dr. Peewee Russell Globulin (S) [Mass/Vol] 3.6 g/dL Normal [facility] Comment on above: Performed By: #### T SH, LIPID, CMP #### [facility] [address] [place] [address] Dr. Peewee Russell Glucose [Mass/Vol] 110 mg/dL Critically high 74-106 [facility] Comment on above: Performed By: #### T SH, LIPID, CMP #### [facility] [address] [place] [address] Dr. Peewee Russell Potassium [Moles/Vol] 4.6 mmol/L Normal 3.5-5.1 [facility] Comment on above: Performed By: #### T SH, LIPID, CMP #### [facility] [address] [place] [address] Dr. Peewee Russell Protein [Mass/Vol] 7.3 g/dL Normal 6.4-8.2 [facility] Comment on above: Performed By: #### T SH, LIPID, CMP #### [facility] [address] [place] [address] Dr. Peewee Russell Sodium [Moles/Vol] 140 mmol/L Normal 136-145 [facility] Comment on above: Performed By: #### T SH, LIPID, CMP #### [facility] [address] [place] [address] Dr. Peewee Russell Urea nitrogen [Mass/Vol] 13.0 mg/dL Normal 7.0-18.0 [facility] Comment on above: Performed By: #### T GEORGES LIPID, CMP #### [facility] [address] [address] [address] Peewee Russell Urea nitrogen/Creatinine [Mass ratio] 17.3 mg/mg Normal [facility] Comment on above: Performed By: #### T GEORGES LIPID, CMP #### [facility] [address] [address] [address] Peewee Russell TSHon 09-10-2021 TSH 1.463 uIU/mL Normal 0.358-3.740 [facility] Comment on above: Performed By: #### T MARI SU, CMP #### [facility] [address] [place] [address] Dr. Peewee Russell VITAMIN B12on 09-10-2021 Cobalamin (Vitamin B12) [Mass/Vol] 620.0 pg/mL Normal 193.0-986.0 [facility] Comment on above: Performed By: #### V ITB12 #### [facility] [address] [place] [address] Dr. Peewee Lynne 08-22-2021 L ----- Specimen: [id number] Received: 08/22/21 Status: LYNETTE Mckinnon Num: [id number] Spec Type: Surgical Subm Dr: Keith Puente Jr, DO Tissues: A Duodenum - Biopsy (DUODENUM BX) Procedures: HE Stain/2, Gross/Micro L4 Patient Age/Sex Location Account Attending Physician Jb Vail /[facility] [id number] Keith Puente Jr, DO SPEC NUM: [id number] RECD: 08/22/21 STATUS: LYNETTE MCKINNON NUM: [id number] VIET: 08/22/[address] [facility] [address]: Keith Puente Jr, DO ENTERED: 08/22/21 [facility] DR: [place] TYPE: Surgical DEPT: S [...] support the above pathologic diagnosis. CPT Codes 32535 Specimen: [id number] Received: 08/22/21 Status: LYNETTE Mckinnon Num: [id number] Spec Type: Surgical Subm Dr: Keith Puente Jr, DO Tissues: A Duodenum - Biopsy (DUODENUM BX) Procedures: HE Stain/2, Gross/Micro L4 Patient: Jb Vail [id number] (Continued) Signed (signature on file) Vish Alexander MD 08/23/21 1816 Normal [facility] SARS-CoV-2 (COVID-19) RNA CLARISSE+probe Ql (Unsp spec) Negative Normal Negative [facility] Comment on above: Order Comment: Healt hcare Worker?: N Result Comment: Testing for SARS-CoV-2 by RT-PCR This test was developed and its performance characteristics determined by [employer] and validated at the [facility]. This test has not been [...] is terminated or revoked sooner. PERFORMED BY: [place] [address] PATHOLOGIST BILINGUAL EXECUTIVE ASSISTANT MITA PINO M.D. Performed By: #### C OVID 19 [facility] #### [address] abdomen pelvis w conon CT abdomen pelvis w con [facility] Main [place] [address] [place] [address] CT Scan Report Signed Patient: Jb Vail MR#: [id number] : 1945 Acct:[id number] Age/Sex: 75 / M ADM Date: 05/15/21 [facility]: Type: [facility] Attending Dr: Keith Puente DO Ordering Provider: Keith Puente Jr, DO Date of Service: 05/15/21 CT/CT abdomen pelvis w con: Constipation;Abdominal pain Copies to: Keith Puente Jr, DO [...] Thompson Jr., M.D.05/15/2021 7:39 PM Dictation Location: [place] [address] Transcribed By: [facility] 05/15/211938 Dictated By: Wilmer Thompson Jr, MD 05/15/216 Signed By: 05/15/211938 Normal [facility] ISTAT XRay CREon 05-15-2021 Creatinine [Mass/Vol] 0.7 mg/dL Normal 0.6-1.3 [facility] Comment on above: Result Comment: ER/E SD physician is notified/shown all ISTAT results. Critical values may be confirmed by laboratory testing if deemed necessary by ER attending doctor. Performed By: #### I SCRE #### [address] Point of Care testing , ISTAT GFR ( > 60 Normal [facility] Comment on above: Result Comment: GFR estimated reference range: According to KDOQI guidelines, <60 ml/min/1.73m2 is sufficient to diagnose a patient with chronic kidney disease. PERFORMED BY: [address] [place] [address] PATHOLOGIST BILINGUAL EXECUTIVE ASSISTANT MITA PINO M.D. 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 He had PFTs, about 2 years. He [...] before he quit. 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 Normal [facility] XR CHEST 2V FRONTAL/LATon XR CHEST [...] rib fractures. IMPRESSION: NO ACUTE RADIOGRAPHIC ABNORMALITY. Pediatric Physiatrist: PSCB Transcribe Date/Time: Sep 29 2020 9:03A Dictated by : ALY MAHONEY MD This examination was interpreted and the report reviewed and electronically signed by: ALY MAHONEY MD on Sep 29 2020 9:05AM EST [id number] Normal [facility] Vital Signs Date Time Vital Sign Value Performing Clinician Jim mares 04-26-2024 08:57-0500 Body mass index (BMI) [Ratio] 23.49 kg/m2 Christopher Timothy DO Work Phone: [facility] 04-26-2024 08:57-0500 [facility] 04-26-2024 08:57-0500 Diastolic blood pressure 88 mm[Hg] [facility] 04-26-2024 08:57-0500 Heart rate 75 /min [facility] Work [facility] 04-26-2024 08:57-0500 SaO2% (BldA) [Mass fraction] 97 % [facility] Work [facility] 04-26-2024 08:57-0500 Systolic blood pressure 158 mm[Hg] [facility] Work [facility] 04-14-2024 08:00-0500 Body height 177.8 cm [facility] 04-14-2024 08:00-0500 Body mass index (BMI) [Ratio] 22.8 kg/m2 [facility] 04-14-2024 08:00-0500 Body temperature 98.2 [degF] [facility] 04-14-2024 08:00-0500 Body weight 72.12 kg [facility] 04-14-2024 08:00-0500 Diastolic blood pressure 84 mm[Hg] [facility] 04-14-2024 08:00-0500 Heart rate 70 /min [facility] 04-14-2024 08:00-0500 SaO2% (BldA) [Mass fraction] 97 % [facility] 04-14-2024 08:00-0500 Systolic blood pressure 138 mm[Hg] [facility] 02-05-2024 11:53-0500 Blood Pressure Location TLFRANCISCO JAVIER CARMONA [facility] 02-05-2024 11:53-0500 Body temperature 98.6 [degF] TL KRISTINE [facility] 02-05-2024 11:53-0500 Diastolic blood pressure 77 mm[Hg] TL KRISTINE [facility] 02-05-2024 11:53-0500 Heart rate 72 /min TL KRISTINE [facility] 02-05-2024 11:53-0500 Respiratory rate 18 /min TL CARMONA [facility] 02-05-2024 11:53-0500 Systolic blood pressure 131 mm[Hg] TL KRISTINE [facility] 01-20-2024 09:35-0400 Body temperature 97 [degF] [facility] 01-20-2024 09:35-0400 Diastolic blood pressure 86 mm[Hg] [facility] 01-20-2024 09:35-0400 Heart rate 62 /min [facility] 01-20-2024 09:35-0400 SaO2% (BldA) [Mass fraction] 98 % [facility] 01-20-2024 09:35-0400 Systolic blood pressure 126 mm[Hg] [facility] 01-20-2024 08:28-0400 Body height 177.8 cm [facility] 12-17-2023 14:24-0400 Body mass index (BMI) [Ratio] 22.2 kg/m2 [facility] 12-17-2023 14:24-0400 Body temperature 97.5 [degF] [facility] 12-17-2023 14:24-0400 Diastolic blood pressure 84 mm[Hg] [facility] 12-17-2023 14:24-0400 Heart rate 76 /min [facility] 12-17-2023 14:24-0400 Respiratory rate 18 /min [facility] 12-17-2023 14:24-0400 SaO2% (BldA) [Mass fraction] 99 % [facility] 12-17-2023 14:24-0400 Systolic blood pressure 122 mm[Hg] [facility] 12-17-2023 11:58-0400 Body height 177.8 cm [facility] 12-17-2023 11:58-0400 Body weight 70.3 kg [facility] 10-14-2023 08:12-0400 Body height 177.8 cm [facility] 10-14-2023 08:12-0400 Body mass index (BMI) [Ratio] 21.8 kg/m2 [facility] 10-14-2023 08:12-0400 Body temperature 97.3 [degF] [facility] 10-14-2023 08:12-0400 Body weight 68.94 kg [facility] 10-14-2023 08:12-0400 Diastolic blood pressure 76 mm[Hg] [facility] 10-14-2023 08:12-0400 Heart rate 68 /min [facility] 10-14-2023 08:12-0400 SaO2% (BldA) [Mass fraction] 97 % [facility] 10-14-2023 08:12-0400 Systolic blood pressure 126 mm[Hg] [facility] 04-08-2023 08:10-0500 Body height 177.8 cm Keith Atkinson Other [facility] Other 04-08-2023 08:10-0500 Body mass index (BMI) [Ratio] 23.53 kg/m2 Keith Atkinson Other [facility] Other 04-08-2023 08:10-0500 Body temperature 97.9 [degF] Keith Atkinson Other [facility] Other 04-08-2023 08:10-0500 Body weight 74.39 kg Keith Atkinson Other [facility] Other 04-08-2023 08:10-0500 Diastolic blood pressure 78 mm[Hg] Keith Atkinson Other [facility] Other 04-08-2023 08:10-0500 Respiratory rate 18 /min Keith Atkinson Other [facility] Other 04-08-2023 08:10-0500 SaO2% (BldA) [Mass fraction] 98 % Keith Atkinson Other [facility] Other 04-08-2023 08:10-0500 Systolic blood pressure 128 mm[Hg] Keith Atkinson Other [facility] Other 01-27-2023 11:09-0500 Blood Pressure Location [employer] [facility] 01-27-2023 11:09-0500 Diastolic blood pressure 71 mm[Hg] [facility] JO[facility] 01-27-2023 11:09-0500 Heart rate 70 /min [facility] JOY [facility] 01-27-2023 11:09-0500 Respiratory rate 16 /min [facility] JOY [facility] 01-27-2023 11:09-0500 Systolic blood pressure 133 mm[Hg] [facility] 10-01-2022 08:10-0400 Body height 177.8 cm Keith Atkinson Other [facility] Other 10-01-2022 08:10-0400 Body mass index (BMI) [Ratio] 21.88 kg/m2 Keith Atkinson Other [facility] Other 10-01-2022 08:10-0400 Body temperature 98.5 [degF] Keith Atkinson Other [facility] Other 10-01-2022 08:10-0400 Body weight 69.17 kg Keith Atkinson Other [facility] Other 10-01-2022 08:10-0400 Diastolic blood pressure 80 mm[Hg] Keith Atkinson Other [facility] Other 10-01-2022 08:10-0400 Respiratory rate 18 /min Keith Atkinson Other [facility] Other 10-01-2022 08:10-0400 SaO2% (BldA) [Mass fraction] 99 % Keith Atkinson Other [employer] Other 10-01-2022 08:10-0400 Systolic blood pressure 124 mm[Hg] Keith Atkinson Other [facility] Other 05-20-2022 09:10-0500 Body height 177.8 cm Keith Atkinson Other [facility] Other 05-20-2022 09:10-0500 Body mass index (BMI) [Ratio] 22.74 kg/m2 Keith Atkinson Other [facility] Other 05-20-2022 09:10-0500 Body temperature 97.5 [degF] Keith Margaritaderek Other [employer] Other 05-20-2022 09:10-0500 Body weight 71.9 kg Keith Margaritaderek Other [employer] Other 05-20-2022 09:10-0500 Diastolic blood pressure 84 mm[Hg] Keith Margaritaderek Other [employer] Other 05-20-2022 09:10-0500 Respiratory rate 18 /min Keith Atkinson Other [employer] Other 05-20-2022 09:10-0500 SaO2% (BldA) [Mass fraction] 98 % Keith Atkinson Other [employer] Other 05-20-2022 09:10-0500 Systolic blood pressure 122 mm[Hg] Keith Atkinson Other [facility] Other 03-28-2022 09:10-0500 Body height 177.8 cm Keith Margaritaderek Other [employer] Other 03-28-2022 09:10-0500 Body mass index (BMI) [Ratio] 22.67 kg/m2 Keith Margaritaderek Other [employer] Other 03-28-2022 09:10-0500 Body temperature 98.5 [degF] Keith Atkinson Other [facility] Other 03-28-2022 09:10-0500 Body weight 71.67 kg Keith Atkinson Other [employer] Other 03-28-2022 09:10-0500 Diastolic blood pressure 80 mm[Hg] Keith Atkinson Other [facility] Other 03-28-2022 09:10-0500 Respiratory rate 18 /min Keith Atkinson Other [facility] Other 03-28-2022 09:10-0500 SaO2% (BldA) [Mass fraction] 99 % Keith Atkinson Other [facility] Other 03-28-2022 09:10-0500 Systolic blood pressure 118 mm[Hg] Keith Atkinson Other [facility] Other 10-08-2021 15:01-0400 Blood Pressure Location [facility] [facility] 10-08-2021 15:01-0400 Diastolic blood pressure 85 mm[Hg] [facility] JO[facility] 10-08-2021 15:01-0400 Heart rate 72 /min [facility] 10-08-2021 15:01-0400 Systolic blood pressure 146 mm[Hg] [facility] [employer] 09-13-2021 09:10-0400 Body height 177.8 cm Keith Atkinson Other [facility] Other 09-13-2021 09:10-0400 Body mass index (BMI) [Ratio] 21.88 kg/m2 Keith Atkinson Other [employer] Other 09-13-2021 09:10-0400 Body temperature 97.2 [degF] Keith Atkinson Other [employer] Other 09-13-2021 09:10-0400 Body weight 69.17 kg Keith Atkinson Other [employer] Other 09-13-2021 09:10-0400 Diastolic blood pressure 26 mm[Hg] Keith Atkinson Other [employer] Other 09-13-2021 09:10-0400 Respiratory rate 18 /min Keith Atkinson Other [employer] Other 09-13-2021 09:10-0400 SaO2% (BldA) [Mass fraction] 98 % Keith Atkinson Other [employer] Other 09-13-2021 09:10-0400 Systolic blood pressure 126 mm[Hg] Keith Atkinson Other [facility] Other 05-09-2021 17:00-0500 Body height 177.8 cm Keith Puente Other [employer] Other 05-09-2021 17:00-0500 Body mass index (BMI) [Ratio] 22.24 kg/m2 Keith Puente Other [employer] Other 05-09-2021 17:00-0500 Body weight 70.31 kg Keith Puente Other [employer] Other 03-13-2021 09:10-0500 Body height 177.8 cm Keith Atkinson Other [employer] Other 03-13-2021 09:10-0500 Body mass index (BMI) [Ratio] 22.67 kg/m2 Keith Atkinson Other [employer] Other 03-13-2021 09:10-0500 Body temperature 97.4 [degF] Keith Atkinson Other [employer] Other 03-13-2021 09:10-0500 Body weight 71.67 kg Keith Atkinson Other [employer] Other 03-13-2021 09:10-0500 Diastolic blood pressure 80 mm[Hg] Keith Atkinson Other [facility] Other 03-13-2021 09:10-0500 Respiratory rate 18 /min Keith Atkinson Other [employer] Other 03-13-2021 09:10-0500 SaO2% (BldA) [Mass fraction] 99 % Keith Aviladerek Other [facility] Other 03-13-2021 09:10-0500 Systolic blood pressure 124 mm[Hg] Keith Atkinson Other [facility] Other Encounters Encounter Date Encounter Type Care Provider Facility Start: 04-26-2024 End: 04-26-2024 Bamboo flowsheet Casper Aguirre DO Work Phone: [facility] Start: 04-26-2024 End: 04-26-2024 Bamboo flowsheet Casper Aguirre DO Work Phone: [facility] Start: 04-26-2024 End: 04-26-2024 Office outpatient visit 25 minutes Casper Aguirre DO Work Phone: [facility] Comment on above: Mild cognitive impai rment (Primary Dx); Cervical myelopathy (CMS/HCC) Start: 04-26-2024 End: 04-26-2024 ambulatory CASPER AGUIRRE Not Available Start: 04-14-2024 End: 04-14-2024 ambulatory [facility] Work Phone: Start: 04-14-2024 End: 04-14-2024 Patient encounter procedure [facility] Ang[place]lica Work Phone: Start: 04-09-2024 Non-patient / Non-visit [facility] Work Phone: Start: 02-05-2024 End: 02-05-2024 ambulatory PA-C TL CARMONA Facility:[facility] ue Start: 02-05-2024 End: 02-05-2024 Patient encounter procedure TL CARMONA [facility] [place] Start: 01-30-2024 End: 01-30-2024 ambulatory Sanjuanita JOY Facility:[facility] Start: 01-30-2024 End: 01-30-2024 Patient encounter procedure Sanjuanita JYO [facility] [place] Start: 01-21-2024 Non-patient / Non-visit [facility] Work Phone: Start: 01-20-2024 End: 01-20-2024 ambulatory [facility] Work Phone: Start: 01-20-2024 End: 01-20-2024 Patient encounter procedure [facility] Ang[place]lic[place] Work Phone: Start: 12-18-2023 Non-patient / Non-visit [facility] Work Phone: Start: 12-17-2023 End: 12-17-2023 ambulatory [facility] Work Phone: Start: 12-17-2023 End: 12-17-2023 Patient encounter procedure [facility] [place] Work Phone: Start: 10-14-2023 End: 10-14-2023 ambulatory [facility] Work Phone: Start: 10-14-2023 End: 10-14-2023 Patient encounter procedure [facility] [place] Work Phone: Start: 10-09-2023 Non-patient / Non-visit [facility] [employer] Work Phone: Start: 09-19-2023 Non-patient / [facility] Work Phone: Start: 05-12-2023 End: 05-12-2023 ambulatory Sanjuanita JOY Facility:[facility] Start: 05-12-2023 End: 05-12-2023 Patient encounter procedure Sanjuanita JOY [facility] Start: 04-14-2023 End: 04-14-2023 ambulatory Keith Atkinson Other [facility] Other Start: 04-14-2023 Telephone encounter Keith Atkinson [facility] [place] Start: 04-08-2023 End: 04-08-2023 ambulatory Keith Atkinson Other [facility] Other Start: 04-08-2023 Office outpatient visit 25 minutes Keith Atkinson [facility] [place] Start: 03-10-2023 End: 03-10-2023 ambulatory Keith Atkinson Other [facility] Other Start: 03-10-2023 Telephone encounter Keith Atkinson [facility] Start: 01-27-2023 End: 01-27-2023 Patient encounter procedure Sanjuanita JOY [facility] Start: 11-28-2022 End: 11-28-2022 ambulatory Keith Atkinson Other [facility] Other Start: 11-28-2022 Telephone encounter Keith Atkinson [facility] Ang[place]lica Start: 10-01-2022 End: 10-01-2022 ambulatory Keith Atkinson Other [facility] Other Start: 10-01-2022 Office outpatient visit 25 minutes Keith Atkinson [facility] [place] Start: 09-27-2022 End: 09-27-2022 ambulatory Keith Atkinson Other [facility] Other Start: 09-27-2022 Telephone encounter Keith Atkinson [facility] Ang[place] Start: 06-14-2022 End: 06-14-2022 ambulatory Keith Atkinson Other [facility] Other Start: 06-14-2022 Telephone encounter Keith Atkinson [facility] [place] Start: 05-29-2022 End: 05-29-2022 ambulatory Keith Atkinson Other [facility] Other Start: 05-29-2022 Telephone encounter Keith Atkinson [facility] [place] Start: 05-20-2022 End: 05-20-2022 ambulatory Keith Atkinson Other [facility] Other Start: 05-20-2022 Office outpatient visit 15 minutes Keith Atkinson [facility] [place] Start: 04-05-2022 End: 04-05-2022 ambulatory Keith Atkinson Other [facility] Other Start: 04-05-2022 Telephone encounter Keith Atkinson [facility] Ang[place]a Start: 03-28-2022 End: 03-28-2022 ambulatory Keith Atkinson Other [facility] Other Start: 03-28-2022 Office outpatient visit 25 minutes Keith Atkinson [facility] [place] Start: 03-25-2022 End: 03-26-[address] KEITH ATKINSON Facility:[facility] Start: 10-08-2021 End: 10-08-2021 Patient encounter procedure Sanjuanita JOY [facility] Start: 10-04-2021 End: 10-05-[address] SANJUANITA JOY Facility:[facility] Start: 09-13-2021 End: 09-13-2021 ambulatory Keith Atkinson Other [facility] Other Start: 09-13-2021 Office outpatient visit [facility] Start: 09-10-2021 End: 09-11-[address] KEITH ATKINSON Facility:[facility] Start: 07-20-2021 End: 07-20-2021 ambulatory Keith Puente Other [facility] Other Start: 07-20-2021 Telephone encounter Keith Puente [facility] Start: 06-04-2021 End: 06-04-2021 ambulatory Keith Atkinson Other [facility] Other Start: 06-04-2021 Telephone [facility] Start: 05-09-2021 End: 05-09-2021 ambulatory Keith Puente Other [facility] Other Start: 05-09-2021 Office outpatient visit 25 minutes Keith Puente [facility] G[facility] Start: 04-04-2021 End: 04-04-2021 ambulatory Keith Atkinson Other [facility] Other Start: 04-04-2021 Telephone encounter Keith Atkinson [facility] [place] Start: 03-28-2021 End: 03-28-2021 ambulatory Keith Atkinson Other [facility] Other Start: 03-28-2021 Telephone encounter Keith Atkinson [facility] Start: 03-27-2021 End: 03-27-2021 ambulatory Keith Atkinson Other [facility] Other Start: 03-27-2021 Telephone encounter Keith Atkinson [facility] Start: 03-13-2021 End: 03-13-2021 ambulatory Keith Atkinson Other [facility] Other Start: 03-13-2021 Office outpatient visit 25 minutes Keith Atkinson [facility] Procedures Date Procedure Procedure Detail Performing Clinician Start: 01-14-2023 Transrectal biopsy o f prostate using ultrasound guidance Sanjuanita JOY Start: 10-04-[address] KEITH ATKINSON Comment on above: Performed By: #### P SAD #### [facility] [address] [place] [address] Dr. Peewee Russell Start: 07-24-2017 right elbow removal of hardware Sanjuanita JOY Start: 01-15-2017 Open reduction of fr acture of elbow with internal fixation Sanjuanita JOY Comment on above: Right elbow Start: 12-26-2011 Transurethral prostatectomy Sanjuanita JOY Start: 11-11-2011 Urodynamic studies Kaitlynn JOY Start: 08-07-2010 Ultrasonography guid ed transrectal cryoablation of prostate Sanjuanita JOY Start: 03-30-2010 Cystoscopy Sanjuanita DUNLAP Arthroscopy Sanjuanita JOY Comment on above: Right shoulder lower back surgery Sanjuanita W THEODORE neck surgery 3 Sanjuanita NUNES S Comment on above: arianna gonzalez Right hand third fin cesilia surgery Sanjuanita JOY Plan of Treatment Date Care Activity Detail Author Start: 04-26-2024 End: 04-26-2024 Patient encounter procedure 04/26/2024 9:00 AM EST Office Visit [facility] [address] [place] [phone] Jean Paul Aguirretristian [address] [place] [id number] Arrived MARGUERITE LINDSAY Comment on above: Arrived Start: 12-17-2023 Patient referral [facility] Work Phone: Comprehensive metabo lic 1999 panel - Serum or Plasma [facility] Comprehensive metabo lic 1999 panel - Serum or Plasma [facility] Patient referral [facility] Work Phone: XR Chest 2 Views [facility] Immunizations Immunization Date Immunization Notes Care Provider Fa cility 01-20-2023 COVID-19 Vaccine Pfi zer - Documentation Purposes Only Keith Atkinson Other [facility] 01-20-2023 Flu Shot - Documentation Purposes Only Keith Atkinson Other [facility] 01-20-2023 influenza virus vaccine, unspecified formulation Sanjuanita JOY [facility] 12-06-2021 influenza virus vaccine, unspecified formulation Sanjuanita JOY [facility] 12-06-2021 SARS-CoV-2 (COVID-19 ) [id number] Sanjuanita JOY [facility] 12-06-2021 influenza, seasonal, injectable Keith Atkinson Other [facility] 06-29-2021 SARS-CoV-2 (COVID-19 ) [id number] vaccine Sanjuanita JOY [facility] Comment on above: Result Comment: 2022: [id number] 01-23-2021 influenza, seasonal, injectable Keith Atkinson Other [facility] 12-27-2020 influenza virus vaccine, unspecified formulation Sanjuanita JOY [facility] 12-27-2020 pneumococcal polysaccharide vaccine, 23 valent Sanjuanita JOY [facility] 12-16-2020 COVID-19 Vaccine Moderna - Documentation Purposes Only Keith Atkinson Other [facility] Comment on above: Result Comment: 2022: [id number] 06-14-2020 zoster vaccine recombinant Keith Atkinson Other [facility] 05-30-2020 COVID-19 Vaccine Moderna - Documentation Purposes Only Keith Atkinson Other [facility] 05-01-2020 COVID-19 Vaccine Moderna - Documentation Purposes Only Keith Atkinson Other [facility] 03-21-2020 zoster vaccine recombinant Keith Atkinson Other [facility] 12-23-2019 influenza virus vaccine, unspecified formulation Sanjuanita JOY [facility] 12-23-2019 pneumococcal conjuga te vaccine, 13 valent Sanjuanitasoren JOY [facility] 12-23-2019 influenza, seasonal, injectable Keith Atkinson Other [facility] 12-23-2019 pneumococcal polysaccharide vaccine, 23 valent Keith Atkinson Other [facility] 12-28-2018 influenza virus vaccine, unspecified formulation Sanjuanita JOY [facility] 12-22-2018 influenza virus vaccine, unspecified formulation Sanjuanitasoren JOY [facility] 12-22-2017 influenza virus vaccine, unspecified formulation Sanjuanitasoren JOY [facility] 12-22-2017 influenza, seasonal, injectable Keith Atkinson Other [facility] 10-05-2017 tetanus toxoid, adsorbed Keith Atkinson Other [facility] 01-20-2017 influenza virus vaccine, unspecified formulation Sanjuanitasoren JOY [facility] 01-20-2017 pneumococcal polysaccharide vaccine, 23 valent Keith Atkinson Other [facility] 12-23-2016 influenza virus vaccine, unspecified formulation Sanjuanitasoren JOY [facility] 12-23-2016 influenza, seasonal, injectable Keith Atkinson Other [facility] 01-10-2016 influenza virus vaccine, unspecified formulation Sanjuanita JOY [facility] 12-28-2014 influenza virus vaccine, unspecified formulation Sanjuanita JOY [facility] 01-10-2009 influenza, whole Sanjuanitasoren [facility] NEGATED: Highlighted row has not occurred!10-08-2021 SARS-CoV-2 mRNA (tozinameran 5y-11y) vaccine Sanjuanita JOY [facility] Payers Date Payer Category Payer Medicare (Managed Care) [facility] MEDICARE [id number] 2019 Medicare [id number] 1959 Medicare [id number] 1957 Medicare [id number] 1945 Unknown [id number] 1947 Unknown [id number] 1947 Unknown [id number] 1947 Unknown [id number] 1947 Unknown [id number] 1947 Unknown [id number] 1947 Unknown [id number] Medicare Medicare [id number] Self-pay Self Pay [id number] Unknown O [id number] Social History Date Type Detail Facility Unknown if ever smoked [facility] Other Sex Assigned At [facility] Other Start: 03-31-2020 Tobacco smoking status Never smoked tobacco (finding) [facility] Start: 01-27-2023 End: 10-14-2023 Tobacco smoking status Ex-smoker (finding) [facility] Tobacco smoking status Never [facility] Start: 1945 Sex Assigned At Male F [facility] Start: 04-14-2024 Sex Male (finding) [facility] Tobacco smoking status NHIS Tobacco smoking consumption unknown [facility] Start: 1945 Sex assigned at Not on file N [facility] Functional Status Date Assessment Result Facility 02-05-2024 Functional Status N/A [facility] 01-27-2023 Functional Status N/A [facility] 10-08-2021 Functional Status N/A [facility] Clinical Notes 09-29-2020 to 04-26-2024 Casper Aguirre DO - 04/26/2024 9:00 AM EST Note Date & Type Note Facility 04-26-2024 History of Present illness Narrative Images from the original note were not included. Chief Complaint: Memory Changes Subjective Jb [place], 78 y.o., male Patient presents today for a neurologic consult for memory changes. Patient is accompanied by his , Helga. Patient states his memory has gotten much worse within the last year. He was previously seen by Dr. Stewart in 2021. He states its gotten so bad he can't remember anything. He will often forget what he goes into the kitchen for. He will go to the store and if he doesn't write it down he states he will just get lost in the store. Patient is still driving and declines any issues with this and denies ever getting lost. Patient is independent in all ADL's. Patient admits he sleeps well at night, at least 8 hours. He states he has been sleeping more lately. He admits to some vivid dreams but denies hallucinations. He does admit to some wandering at night. Patient admits an increase in anxiety and agitation. He denies ever being on any medication for memory. MOCA 20/30. Patient also is asking about why is getting random zaps in his brain. He states this is worse when he goes to bed at night. He is unable to tell me how frequently this is happening. Review of Systems Constitutional: Negative for appetite change, fatigue and fever. Respiratory: Negative for cough, shortness of breath and wheezing. Cardiovascular: Negative for chest pain, palpitations and leg swelling. Gastrointestinal: Negative for abdominal pain, constipation, diarrhea and nausea. Musculoskeletal: Negative for arthralgias, gait problem and myalgias. Neurological: Negative for dizziness, tremors, numbness and headaches. Memory loss No past medical history on file. No past surgical history on file. No family history on file. Social History Tobacco Use Smoking status: Not on file Smokeless tobacco: Not on file Substance Use Topics Alcohol use: Not on file Allergies: Penicillins and Sulfa antibiotics Vitals: 04/26/24 0857 BP: 158/88 Pulse: 75 SpO2: 97% Body mass index is 23.49 kg/m . weight: 161 lb 6.4 oz Neurologic exam: Mental status: Awake, alert to person, place and time. MOCA 20/30 Language is fluent without aphasia. Attention and concentration are normal. Fund of knowledge is appropriate for level of education. Cranial nerves: CN II: Visual acuity is normal. Visual hensley full to confrontation. CN III, IV, : pupils equal round and reactive to light. Extraocular movements intact. No ptosis present. CN V: Facial sensation is normal. CN VII: Full and symmetric facial movement. CN VIII: Hearing is normal to finger rub bilaterally: CN IX and X: Palate elevates symmetrically. CN XI: Shoulder shrug is normal bilaterally. CN XII: Tongue is midline without atrophy or fasciculation. Motor: RUE Strength deltoid, , biceps , triceps , wrist extensors , wrist flexor , terminal worker strength 5/5. LUE Strength deltoid , biceps , triceps , wrist extensors , wrist flexor , terminal worker strength 5/5. RLE Strength illopsoas, quadriceps, tibialis anterior, and gastrocnemius strength 5/5. LLE Strength illopsoas, quadriceps, tibialis anterior, and gastrocnemius strength 5/5. Normal tone x4 extremities. Bulk is normal. Sensory: Sensation is intact to light touch throughout Four extremities. Reflexes: RUE biceps reflex 2+ brachioradialis reflex 2+ . LUE biceps reflex 2+ brachioradialis reflex 2+ . RLE knee reflex 2+ . LLE knee reflex 2+ . Ley's sign negative. Coordination: [id number] testing and rapid alternating movements are normal Gait: Normal Review and summary of old records: MOCA on 04/26/24: MOCA from 07/30/21: with 2/5 recall MRI brain shows age consistent atrophy and chronic small vessel ischemic changes MOCA testing from August 09, 2020 was with 2/5 recall B12 491. Assessment/Plan Diagnoses and all orders for this visit: Mild cognitive impairment It is my impression the patient has memory difficulty dating back at least 5+ years but progressively worsening at a slow pace. Most consistent with mild cognitive impairment. No issues with any ADLs. He has noticed difficulty with names and word finding difficulty, but this has not worsened. Short-term memory is somewhat affected. Driving without issue. Managing finances with only minor issues. Most recent MOCA .Stable without changes. PLAN - Consideration for medication such as donepezil - Had depression/anxiety but it is well controlled on venlafaxine Cervical myelopathy ([facility]) History of cervical spinal stenosis with compressive myelopathy status post decompressive surgery. Pt has been fully educated on their diagnosis, lab results, treatment options, follow up plan, and return instructions documented in this encounter [facility] 02-09-2024 Note Patient Education Urology Benign Prostatic [...] Follow these instructions at home: ??? Take [id number] and prescription medicines only as told by [...] do not get (more content not included)... [facility] 01-20-2024 Evaluation note Authored January 20, 2024 9 :22am The above note written by __ _Sarah Deshpande____ acting as human recorder, note dictated by Dr. Esparza .I performed the above HPI, ROS, and Examination. I formulated and dictated the treatment plan and was present for entire encounter. Keith Atkinson D.O. [facility] Work Phone: 1(519) 750-452509-25-2024 Evaluation note* Author Keith Atkinson [facility] Authored December 17, 2023 3:26pm The above note written by __ _Sarah Deshpande____ acting as human recorder, note dictated by Dr. Esparza .I performed the above HPI, ROS, and Examination. I formulated and dictated the treatment plan and was present for entire encounter. Keith Atkinson D.O. [facility] Work Phone: 1(808) 749-918307-23-2024 Evaluation note* Author Keith Atkinson [facility] Authored October 14, 2023 9:02 am The above note written by __ _Sarah Deshpande____ acting as human recorder, note dictated by Dr. Esparza .I performed the above HPI, ROS, and Examination. I formulated and dictated the treatment plan and was present for entire encounter. Keith Atkinson D.O. [facility] Work Phone: 1(296) 106-598101-16-2024 Evaluation note* Encounter Date Diagnosis Assessment Notes [...] daily as directed. 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 (ICD-10 - Z79.899) [facility] Other 12-18-2023 Evaluation note* Encounter Date Diagnosis Assessment Notes Treatment Notes Treatment Clinical Notes Feb, COPD (chronic obstructive pulmonary disease) (ICD-10 - J44.9) [facility] Other 09-28-2023 Hospital Discharge instructions Follow Up Care 12/19/2022 14:25:52 With:DAVE SELF, Sanjuanita Bills, URL Address: [facility] [address], [place] [address]- When:Within 1 Year(s) Comments:w/JUANI [facility] 09-07-2023 Evaluation note* Encounter Date Diagnosis Assessment Notes Treatment Notes Treatment Clinical Notes Nov, Anxiety and depression (ICD-10 - F41.8) [facility] Other 07-11-2023 Evaluation note* Encounter Date Diagnosis [...] I did recommend that he see a boring machine operator, and he refuses. He states that he does not feel that he is that bad . 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 His voices that he does not use the Spiriva as directed. We discussed that there are newer medications that can be used to treat his COPD, but they should be given by a boring machine operator. He only uses the Spiriva as needed. [...] I did recommend that he see a title examiner for evaluation to discuss what has been going on and determine what testing needs to be done. He refuses. He does not want the hassle of going to the title examiner. He states that when he hits the [...] above medication daily as directed. 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 It could be his lungs that are [...] TSH is normal at 1.754. Mar, Other custodial (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 therapy (ICD-10 - Z79.899) Mar, [...] on his lip but it is healing. [facility] Other 07-18-2022 Hospital Discharge instructions Patient Education [...] have oneof these risk factors: ?Being of -Citizen Of [place] descent. ?Having a family history of prostate [...] you: Are older than age 55. Are -Citizen Of [place]. Have a father, brother, or uncle who [...] 12/19/2017 Document Revised: 02/20/2018 Document Reviewed: 12/19/2017 [employer] Patient Education 2019 [employer]. Follow Up Care 07/25/2021 09:55:06 With:DAVE SELF, Sanjuanita Bills, URL Address: [facility] [address] , [place] [address] [phone] When:10/08/2022 [facility] Angélica 06-23-2022 Evaluation note* Encounter Date [...] that beyond that he should see a regional marketing director. He should wear a wide brimmed hat, and wear a chapstick with SPF to protect this area from the sun. If he wants to see a regional marketing director he should let me know. If he [...] Continue with above medication as needed. Aug, [facility] use of drug (ICD-10 - Z79.899) Aug, [...] a colonoscopy done and nothing was found. [facility] Other 03-14-2022 Evaluation note* Encounter Date Diagnosis Assessment Notes Treatment Notes Treatment Clinical Notes May, COPD (chronic obstructive pulmonary disease) (ICD-10 - J44.9) [facility] Other 02-16-2022 Evaluation note* Encounter Date Diagnosis Assessment Notes Treatment Notes Treatment Clinical Notes Apr, Constipation (ICD-10 - K59.00) RTO 4-6 WEEKS Apr, Abdominal pain (ICD-10 - R10.9) Apr, Nausea (ICD-10 - R11.0) [facility] Other 01-12-2022 Evaluation note* Encounter Date Diagnosis [...] Mar, Other 1:52 PM - 1:58 PM [facility] Other 01-04-2022 Evaluation note* Encounter Date Diagnosis Assessment Notes Treatment Notes Treatment Clinical Notes Mar, Fatigue (ICD-10 - R53.83) Mar, Exposure to COVID-19 virus (ICD-10 - Z20.828) [facility] Other 12-21-2021 Evaluation note* Encounter Date Diagnosis [...] with above medication daily as directed. Feb, roasterman use of drug (ICD-10 - Z79.899) Feb, [...] Diego for evaluation next month (Mar 2021). [facility] Other 07-09-2021 NoteHNO ID: [id number] Author: Addis Michaud MD Service: ? Author [...] in the past, he was seeing a [place] boring machine operator. He had PFTs, about 2 years. He [...] before he quit. 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 He went out on [...] Take by mouth once (more content not included)...[facility]07-09-2021 NoteProcedure (PULMAV) JB VAIL ([id number]) 1945 M Date Time Provider Department 09/29/20 8:30 AM PULM LAB [facility] PULMAV During your visit today, we recorded the following information about you: Referring Provider: SELF [200] Allergies As of Date: 09/29/2020 Noted Allergy Reaction PENICILLINS 05/27/2001 2 - Rash SULFA (SULFONAMIDE ANTIBIOTICS) 05/27/2001 2 - Rash Date Reviewed: 09/29/2020 Reviewed by: Barb Lozoya, COSMETIC ACCOUNT COORDINATOR - Fully Assessed Reason for Visit: Spirometry [191] Visit Diagnosis:Dyspnea on exertion [R06.00] Order(s):SPIROMETRY WITH DILATOR IF OBSTRUCTED [[id number]] Order #: [id number] Prescriptions as of 09/29/2020 - dicyclomine (BENTYL) [...] R25.9] Encounter Status:Closed by BARB LOZOYA on 09/29/20[facility] 09-29-2020 NoteHNO ID: [id number] Author: RT Mg(R) Service: Radiology Author Type: Well Logger Type: Progress Notes Filed: 09/29/2020 8:07 AM [...] BY: RT Mg(R) September 29, 2020 8:07 [facility] Future Appointments Appointment Date:10/11/2022 08:00:00 AM Scheduled Provider:Sanjuanita JOY MD Location:[facility] Appointment Type:URO Office Visit Diagnostic Tests Pending * PSA Total 10/08/21 [facility] evaluation + Plan note Future Appointments Appointment Date:01/30/2024 08:30:00 AM Scheduled Provider:Sanjuanita JOY MD Location:[facility] Appointment Type:URO Office Visit Diagnostic Tests Pending * PSA Total 01/27/23 [facility] evaluation + Plan note Future Appointments Appointment Date:01/30/2024 08:30:00 AM Scheduled Provider:Sanjuanita JOY MD Location:[facility] Appointment Type:URO Office Visit [facility] evaluation + Plan note Future Appointments Appointment Date:02/05/2024 11:40:00 AM Scheduled Provider:TL CARMONA PA-C Location:[facility] Appointment Type:URO Office Visit [facility] evaluation noteNo [facility] [employer] Other Evaluation note* Diagnosis Onset Date Resolution Status Abdominal pain acute Abscess acute Anemia acute BPH (benign prostatic hyperplasia) acute Chest pain acute Cold sore acute Constipation acute COPD (chronic obstructive pulmonary disease) acute Hyperglycemia acute Hyperlipidemia acute Weight loss acute [facility] Work Phone: Evaluation note* Diagnosis Mild cognitive impairment- Primary Mild cognitive impairment, so stated Cervical myelopathy (CMS/HCC) Cervical spondylosis with myelopathy documented in this encounter [facility] N[facility]ative - Reported* Type Description Date Medical History History of Chicken Pox/Measles/M umps Medical History follows with Dr. Agustín bear for his prostate and kidneys Medical History [...] Dr. Puente 08/22 Hospitalization History see above [facility] Other [facility] general Narrative - Reported* Type Description Date Medical History History of Chicken Pox/Measles/M umps Medical History follows with Dr. Agustín bear for his prostate and kidneys Medical History [...] Dr. Pressley 08-07-18 Hospitalization History see above [facility] Other Hospital course Narrative No data available for this section [facility] Discharge instructions No data available for this section [facility] progress note No data available for this section [facility] Summary Purpose Family History No Family History [...] Time Advance Directives No June 23 10:45am Advance Directive Response Recorded Date/ Time Advance Directives No June 23 9:45am Reason for Referral Reason appt pt needs cons ult to discuss constipation, change in bowel habits, dark stools Diagnosis 1 Constipation (K59.00 ) Referral Organization [facility] Ang[facility]lica Referring Provider First Name Keith Referring Provider Last Name China Referring Provider Specialty Family Prac tomy Referred Organization [facility] Referred Provider Keith Puente Referred Address [address],[address] Referred Provider Specialty Gastroentero logy Referral Priority [...] (chronic obstructive pulmonary disease) Suspicious nevus Vertigo Chief Complaint Admit Date lt earache/soreness January 20, 2024 9 :22am review labs April 14, 2024 7 :59am Reason for Visit Admit Date COPD (chronic obstructive pulmonary dise ase) January 20, 2024 9:22am Suspicious nevus January 20, 2024 9 :22am Vertigo January 20, 2024 9 :22am Abdominal pain April 14, 2024 7 :59am Anemia April 14, 2024 7 :59am BPH (benign prostatic hyperplasia) Janua 2024 7:59am Constipation April 14, 2024 7 :59am COPD (chronic obstructive pulmonary dise ase) April 14, 2024 7:59am Hyperglycemia April 14, 2024 7 :59am Hyperlipidemia April 14, 2024 7 :59am Additional Source Comments (unrecognized sect ion and content) No Status Records FoundNo Status Records FoundNo Status Records FoundNo Status Records FoundNo Status Records FoundNo Status Records Found INFORMATION SOURCE (unrecogn ized section and content) DATE CREATED AUTHOR 09/30/2020 [facility] DATE CREATED AUTHOR AUTHOR'S ORGANIZ ATION 05/07/2021 [facility] DATE CREATED AUTHOR AUTHOR'S ORGANIZ ATION 08/27/2021 [facility] DATE CREATED AUTHOR AUTHOR'S ORGANIZ ATION 04/16/2022 [facility] DATE CREATED AUTHOR AUTHOR'S ORGANIZ ATION 02/16/2024 [facility] DATE CREATED AUTHOR AUTHOR'S ORGANIZ ATION 04/27/2024 [facility] Specialists EPIC REASON FOR VISIT (unrecogniz ed section and content) review labssinus congestion/ weaknessreview labsPCR resultstesting questionrefillPATIENT COMPLAINING OF CONSTIPATION AND BLOOD IN STOOLClinical Acute Illnessreview labsrefillClinicalpossible thrushClinicalClinicalClinical / labreview labsClinicalrefillRefillsreview labsClinical Acute Illness Care Team (unrecognized sect ion and content) Team Status: Active Member Role Status Blake Atkinson DO Primary Care Provider Active Team Status: Inactive Member Role Status Blake Atkinson DO Primary Care Provide r, Attending Provider Active Start: December 17, 2023 End: December 17, 2023 Team Status: Active Member Role Status Blake Atkinson DO Primary Care Provider Active S tart: December 18, 2023 Augie Avalos [facility] , Attending Provider Active Start: December 18, 2023 Team Status: Inactive Member Role Status Blake Atkinson DO Primary Care Provide r, Attending Provider Active Start: January 20, 2024 End: January 20, 2024 Team Status: Active Member Role Status Blake Atkinson DO Primary Care Provider Active S [...] 2023 End: October 14, 2023 Team Status: Active Member Role Status Blake Atkinson DO Primary Care Provider Active S tart: January 21, 2024 Sanjuanita Joy MD Attending Provider Active St art: January 21, 2024 Team Status: Active Member Role Status Blake Atkinson DO Primary Care Provide r, Attending Provider Active Start: April 09, 2024 Team Status: Inactive Member Role Status Blake Atkinson DO Primary Care Provide r, Attending Provider Active Start: April 14, 2024 End: April 14, 2024 Sr. Social Media & Mobile Manager Relationship Specialty Start Date End Date Keith Atkinson MD [address] [place] [address] PCP - General Family Medicine 04/26/24 Sr. Social Media & Mobile Manager Relationship Specialty Start Date End Date Keith Atkinson MD [address] [place], [place] [id number] PCP - General Family Medicine 04/26/24 Goals (unrecognized section and content) Goals may [...] BE BASED ON THE PRIMARY CLINICAL RECORDS. [employer] provides no warranty or guarantee of the accuracy or completeness of information in this document.
[2024-05-28 15:48] LABS: pH VBG 7.365 (7.330-7.430)
[2024-05-28 15:49] LABS: PCO2 VBG 49.5 mmHg (40.0-52.0)
[2024-05-28 15:57] LABS: Basophils Percent Auto 0.4 % (0.2-2.0); Eosinophils Absolute Auto 0.1 10^3/uL (0.0-0.7); Eosinophils Percent Auto 1.3 % (0.9-7.0); Hematocrit 41.8 % (42.0-54.0); Hemoglobin 13.8 g/dL (14.0-18.0); Immature Granulocytes Abs Auto 0.04 10^3/uL (0.00-0.03); Immature Granulocytes Pct Auto 0.4 % (0.0-0.5); Lymphocytes Absolute Auto 2.8 10^3/uL (1.2-3.8); Lymphocytes Percent Auto 27.2 % (20.5-60.0); Mean Corpuscular Volume 93.9 fL (80.0-94.0); Mean Platelet Volume 9.4 fL (9.5-13.5); Monocytes Absolute Auto 0.8 10^3/uL (0.3-0.8); Neutrophils Absolute Auto 6.4 10^3/uL (1.4-6.5); Neutrophils Percent Auto 62.7 % (43.0-75.0); Platelet Count 221 10^3/uL (150-450); Red Blood Count 4.45 10^6/uL (4.70-6.10); Red Cell Distribution Width 12.4 % (11.0-15.0); White Blood Count 10.1 10^3/uL (4.0-11.0)
[2024-05-28 15:59] LABS: INR 1.03; Prothrombin Time 10.9 sec (9.0-11.6)
[2024-05-28] MEDS: ONDANSETRON PF 4 MG/2 ML VIAL IV (16:11)
[2024-05-28] MEDS: 0.9 % SODIUM CHLORIDE 1,000 ML 999 ML IV (16:11)
[2024-05-28] MEDS: MECLIZINE HCL 12.5 MG TABLET 25 MG PO (16:11)
[2024-05-28] MEDS: DEXAMETHASONE SOD PHOS 10 MG/ML VIAL IV (16:11)
[2024-05-28 16:16] LABS: Alanine Aminotransferase 19 U/L (16-63); Albumin Level 3.6 g/dL (3.4-5.0); Alkaline Phosphatase 73 U/L (46-116); Anion Gap 9.8; Aspartate Amino Transferase 23 U/L (15-37); BUN Creatinine Ratio 15.5; Bilirubin Total 0.6 mg/dL (0.2-1.0); Calcium 9.1 mg/dL (8.5-10.1); Carbon Dioxide 29.4 mmol/L (21.0-32.0); Chloride 103 mmol/L (98-107); Estimated GFR (African America >60 (>=60 mL/min/1.73m^2); Estimated GFR (Non-African Ame >60 (>=60 mL/min/1.73m^2); Globulin 3.7 g/dL; Glucose 130 mg/dL (74-106); Potassium 4.2 mmol/L (3.5-5.1); Sodium 138 mmol/L (136-145); Total Protein 7.3 g/dL (6.4-8.2)
[2024-05-28 16:24] LABS: Magnesium 1.7 mg/dL (1.8-2.4); Thyroid Stimulating Hormone 1.105 uIU/mL (0.358-3.740); Troponin I High Sensitivity 5.5 pg/mL (4.0-76.1)
[2024-05-28 16:25] LABS: Ethanol <3 mg/dL
== END 2024-05-28 20:43 | disposition short-term general hospital (02) ==
PROVIDERS: Physician Assistant; Emergency Provider Emergency Medicine; PCP Family Medicine
DX: R42 Dizziness and giddiness (principal); I65.22 Occlusion and stenosis of left carotid artery; I65.02 Occlusion and stenosis of left vertebral artery; Z79.899 Other long term (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 therapy; R51.9 Headache, unspecified
CPT/HCPCS: 36415; 70450; 70496; 70498; 71045; 80053; 80320; 81001; 82800; 82948; 83605; 83735; 83880; 84443; 84484; 85025; 85610; 93005; 96361; 96374; 96375; 99285; J1100; J2405; Q9967

== ENCOUNTER 2025-01-25 06:02 | Emergency (ER) | payer MEDICARE, SELFPAY ==
--- OUTSIDE RECORDS SUMMARY | 2024-04-13 03:00 | XMS_ITS ---
Author Organization [facility] in [place] Address [address] [place] [address] Care Team Providers Care Insecticide Maker Name Role Phone Benito Moreau DO Primary Care Provider UnavailAugie Jarrett Unavailable [phone] REASON FOR VISIT 3 month F/U asthma/copd overlap Encounters Encounter Location Date Provider Diagnosis Pulmonary Medicine [address] [place] [address] 04/13/2024 Augie Avalos Plan Of Treatment Next Appt Details Provider Name:AKOSUAABDULAZIZ MORSE, 02/02/2025 01:15:00 PM, [address] [place] [address], [phone], Provider Name:AKOSUA MORSE, 03/01/2025 09:00:00 AM, [address] [place] [address], [phone], Provider Name:AKOSUA MORSE, 03/15/2025 09:00:00 AM, [address] [place] [address], [phone], Provider Name:AKOSUA MORSE, 06/29/2025 01:00:00 PM, [address] [place] [address], [phone], Progress Notes * Hesham RICARDO DDOB: [birth year] (79 yo M)Acc No.[id number]:04/13/2024 UNLOCKED PROGRESS NOTE Follow Up Patient: Hesham WILLARD :?Augie Avalos, DODOB:1945???Age:78 Y ???Sex:MaleDate:04/13/2024Phone:[phone]:[address], [id number]:Benito Moreau DO Subjective: * Chief Complaints: * 1 . 3 month F/U asthma/copd overlap. * Medical History: Objective: * Vitals: Assessment: Plan: * Treatment: * * Electronic signature of Augie Avalos DO on 01/25/2025 at 06:09 AM ESTSign off status: PendingVisit Status:?R/S (Rescheduled) * Provider: Ladan Avalos DO Date: 0 04/13/2024 Generated for Printing/Faxing/eTransmitting on:?01/25/2025 06:09 AM EST
--- OUTSIDE RECORDS SUMMARY | 2024-05-05 04:45 | XMS_ITS ---
Author Organization [facility] in [place] Address [address] [place] [address] Care Team Providers Care Cook Helper Pastry Name Role Phone Benito Moreau DO Primary Care Provider Unavailab Akosua Jenkins [phone] REASON FOR VISIT bm 6mo fbse, schedule PDT Encounters Encounter Location Date Provider Diagnosis [facility] [address] [place] [phone] 05/05/2024 Akosua Carreno Plan Of Treatment Next Appt Details Provider Name:AKOSUA MORSE, 02/02/2025 01:15:00 PM, [address] [place] [address], [phone], Provider Name:AKOSUA MORSE, 03/01/2025 09:00:00 AM, [address] [place] [address], [phone], Provider Name:AKOSUA Justyn DUSTIN MORSE, 03/15/2025 09:00:00 AM, [address] [place] [address], [phone], Provider Name:AKOSUA MORSE, 06/29/2025 01:00:00 PM, [address] [place] [address], [phone], Progress Notes * Hesham RICARDO DDOB: [birth year] (79 yo M)Acc No.[id number]:05/05/2024 UNLOCKED PROGRESS NOTE Established Patient: Hesham WILLARD :?MARK ChakrabortyOB:1945???Age: 78 Y???Sex:MaleDate:05/05/2024Phone:[phone]:[facility] [place], [id number]:Benito Moreau, DO Subjective: * Chief Complaints: * 1 . bm 6mo fbse, schedule PDT. * Medical History: Objective: * Vitals: Assessment: Plan: * Treatment: * * Electronic signature of Akosua Carreno PA-C on 01/25/2025 at 06:10 AM EST Sign off status: PendingVisit Status:?LATE CANC (Late Cancel) * Provider: Saskia Carreno PA-C Date: 0 05/05/2024 Generated for Printing/Faxing/eTransmitting on:?01/25/2025 06:10 AM EST
--- OUTSIDE RECORDS SUMMARY | 2024-09-08 08:00 | XMS_ITS ---
Author Organization [facility] in [place] Address [address] [place] [address] Care Team Providers Care Product Safety Coordinator Name Role Phone Benito Moreau DO Primary Care Provider Unavailab Akosua Jenkins Unavailable [phone] REASON FOR VISIT mts concerning spot between eyebrows Encounters Encounter Location Date Provider Diagnosis [facility] [address] [place] [address] 09/08/2024 Akosua Carreno Other skin changes due [...] Name:AKOSUA MORSE, 02/02/2025 01:15:00 PM, [address] [place], [address], Provider Name:AKOSUA MORSE, 03/01/2025 09:00:00 AM, [address] [place] [address], [address], Provider Name:AKOSUA MORSE, 03/15/2025 09:00:00 AM, [address] [place] [address], [address], Provider Name:AKOSUA MORSE, 06/29/2025 01:00:00 PM, [address] [place] [address], [address], Progress Notes * Hesham RICARDO DDOB: [birth year] (79 yo M)Acc No.[id number]:09/08/2024 UNLOCKED PROGRESS NOTE Established Patient: Hesham WILLARD :?CUATE ChakrabortyCDOB:1945???Age: 78 Y???Sex:MaleDate:09/08/2024Phone:[phone]:[address] [place], [place] [address]Pcp:Anila Saeed In:01:00 PM ESTCheck Out: 01:28 PM [...] 06:10 AM EST Sign off status: PendingVisit Status:?CHK (Check Out) * Provider: Saskia Carreno PA-C Date: 0 09/08/2024 Generated for Printing/Faxing/eTransmitting on:?01/25/2025 06:10 AM EST
--- OUTSIDE RECORDS SUMMARY | 2024-09-28 08:15 | XMS_ITS ---
Author Organization [facility] in [place] Address [address] [place] [address] Care Team Providers Care Chief Of Hospital Medicine Name Role Phone Benito Moreau DO Primary Care Provider Unavailab Akosua Jenkins [phone] REASON FOR VISIT rm bm 6mo fbse, schedule PDT Encounters Encounter Location Date Provider Diagnosis [facility] [address] [place] [address] 09/28/2024 Akosua Carreno Plan Of Treatment Next Appt Details Provider Name:AKOSUA MORSE, 02/02/2025 01:15:00 PM, [address] [place] [address], [address], Provider Name:AKOSUA MORSE, 03/01/2025 09:00:00 AM, [address] [place] [address], [address], Provider Name:AKOSUA MORSE, 03/15/2025 09:00:00 AM, [address] [place] [address], [address], Provider Name:AKOSUA MORSE, 06/29/2025 01:00:00 PM, [address] [place] [address], [address], Progress Notes * Hesham RICARDO DDOB: [birth year] (79 yo M)Acc No.[id number]:09/28/2024 UNLOCKED PROGRESS NOTE Established Patient: Hesham WILLARD :?MARK ChakrabortyOB:1945???Age: 79 Y???Sex:MaleDate:09/28/2024Phone:[phone]:[facility], [id number]:Benito Moreau, DO Subjective: * Chief Complaints: * 1 . rm bm 6mo fbse, schedule PDT. * Medical History: Objective: * Vitals: Assessment: Plan: * Treatment: * * Electronic signature of Akosua Carreno PA-C on 01/25/2025 at 06:10 AM EST Sign off status: PendingVisit Status:?CANC (Cancelled) * Provider: Saskia Carreno PA-C Date: 0 09/28/2024 Generated for Printing/Faxing/eTransmitting on:?01/25/2025 06:10 AM EST
--- OUTSIDE RECORDS SUMMARY | 2024-12-28 06:00 | XMS_ITS ---
Author Organization The [facility] in [place] Address [address] [place] [address] Care Team Providers Care Apprentice Cosmetologist Name Role Phone Benito Moreau DO Primary Care Provider Unavailab AKOSUA Solis Unavailable [phone] REASON FOR VISIT rm rm bm 6mo fbse, schedule PDT Encounters Encounter Location Date Provider Diagnosis [facility] [address] [place] [address] 12/28/2024 AKOSUA CHAPMAN Other skin changes due [...] Details Provider Name:AKOSUA MORSE, 02/02/2025 01:15:00 PM, [address] [place] [address], [address], Provider Name:AKOSUA MORSE, 03/01/2025 09:00:00 AM, [address] [place] [address], [address], Provider Name:AKOSUA MORSE, 03/15/2025 09:00:00 AM, [address] [place] [address], [address], Provider Name:AKOSUA MORSE, 06/29/2025 01:00:00 PM, [address] [place] [address], [address], Progress Notes * Hesham RICARDO DDOB: [birth year] (79 yo M)Acc No.[id number]:12/28/2024 UNLOCKED PROGRESS NOTE Established Patient: Osmani Hesham FOX :?AKOSUA Justyn CHACHA CHAPMAN-CDOB:1945???Age: 79 Y???Sex:MaleDate:12/28/2024Phone:[phone]:[address] [place] [address]Pcp:Anila Saeed In:10:59 AM ESTCheck Out: 11:45 AM [...] 1 7004 DESTROY LESIONS, 15 OR MORE, 29819 PUNCH BIOPSY OF SKIN, SINGLE LESION, TthNo: 59, Srfc: , Modifiers: 59 , 74990 PUNCH BIOPSY OF SKIN, EACH ADDL LESION, TthNo: 59, Srfc: , Modifiers: 59 , 07773 TANGENTIAL BIOPSY OF SKIN ADDT, TthNo: 59, Srfc: , Units: 3.00 , Modifiers: 59 , 10165 BIOPSY OF EXTERNAL EAR, TthNo: 59~LT, Srfc: , Modifiers: 59 , LT * * Electronic signature of AKOSUA CHAPMAN PA-C, [id number] on 01/25/2025 at 06:09 AM ESTSign off status: PendingVisit Status:?CHK (Check Out) * Provider: Saskia CHAPMAN PA-C Date: Generated for Printing/Faxing/eTransmitting on:?01/25/2025 06:09 AM EST
--- OUTSIDE RECORDS SUMMARY | 2025-01-05 05:30 | XMS_ITS ---
Author Organization The [facility] in [place] Address [address] [place] [address] Care Team Providers Care Oil Well Pumper Name Role Phone Benito Moreau DO Primary Care Provider Unavailab AKOSUA Solis Unavailable [phone] REASON FOR VISIT bm PDT 1 Encounters Encounter Location Date Provider Diagnosis [facility] [address] [place] [address] 01/05/2025 AKOSUA CHAPMAN Plan Of Treatment Next Appt Details Provider Name:AKOSUA MORSE, 02/02/2025 01:15:00 PM, [address] [place] [address], [address], Provider Name:AKOSUA MORSE, 03/01/2025 09:00:00 AM, [address] [place] [address], [address], Provider Name:AKOSUA MORSE, 03/15/2025 09:00:00 AM, [address] [place] [address], [address], Provider Name:KAOSUA MORSE, 06/29/2025 01:00:00 PM, [address] [place] [address], [address], Progress Notes * Hesham RICARDO DDOB: [birth year] (79 yo M)Acc No.[id number]:01/05/2025 UNLOCKED PROGRESS NOTE Progress Note Patient: Hesham WILLARD :?MARK FRIASOB:1945???Age: 79 Y???Sex:MaleDate:01/05/2025Phone:[phone]:[address], [id number]:Benito Moreau, Subjective: * Chief Complaints: * 1 . bm PDT 1. * Medical History: Objective: * Vitals: Assessment: Plan: * Treatment: * * Electronic signature of AKOSUA CHAPMAN PA-C, [id number] on 01/25/2025 at 06:10 AM ESTSign off status: PendingVisit Status:?CANC (Cancelled) * Provider: Saskia CHAPMAN PA-C Date: 1 Generated for Printing/Faxing/eTransmitting on:?01/25/2025 06:10 AM EST
--- OUTSIDE RECORDS SUMMARY | 2025-01-19 05:15 | XMS_ITS ---
Author Organization The [facility] in [place] Address [address] [place] [address] Care Team Providers Care Dairy Husbandman Name Role Phone Benito Moreau DO Primary Care Provider Unavailab AKOSUA Solis Unavailable [phone] REASON FOR VISIT bm PDT 1, re-eval A: epigastric skin Encounters Encounter Location Date Provider Diagnosis [facility] [address] [place] [address] 01/19/2025 AKOSUA BUSHLAXMI Actinic keratosis L57.0 Assessments Encounter Date Diagnosis (ICD Code) Assessment Notes Treatment Notes Treatment Clinical Notes Section Notes 01/19/2025 Actinic keratosis (ICD-10 - L57. 0) Plan Of Treatment Next Appt Details Provider Name:AKOSUA UMAÑAOW, 02/02/2025 01:15:00 PM, [address] [place] [address], [address], Provider Name:AKOSUA Alejandra DUSTIN HROW, 03/01/2025 09:00:00 AM, [address] [place] [address], [address], Provider Name:AKOSUA Justyn DUSTIN UMAÑAOW, 03/15/2025 09:00:00 AM, [address] [place] [address], [address], Provider Name:AKOSUA Justyn DUSTIN UMAÑAOW, 06/29/2025 01:00:00 PM, [address] [place] [address], [address], Progress Notes * Hesham RICARDO DDOB: [birth year] (79 yo M)Acc No.[id number]:01/19/2025 UNLOCKED PROGRESS NOTE Progress Note Patient: Hesham WILLARD :?CUATE FRIASCDOB:1945???Age: 79 Y???Sex:MaleDate:01/19/2025Phone:[phone]:[address] [place] [address]Pcp:Anila Saeed In:09:49 AM ESTCheck Out: 11:18 AM [...] * Electronic signature of AKOSUA CHAPMAN PA-C, [id number] on 01/25/2025 at 06:09 AM ESTSign off status: PendingVisit Status:?CHK (Check Out) * Provider: Saskia CHAPMAN PA-C Date: Generated for Printing/Faxing/eTransmitting on:?01/25/2025 06:09 AM EST
--- OUTSIDE RECORDS SUMMARY | 2025-01-24 08:30 | XMS_ITS ---
Author Organization The [facility] in [place] Address [address] [place] [address] Care Team Providers Care Pay Per Click Strategist Name Role Phone Keith Moreau DO Primary Care Provider Unavailab KEITH Tucker Unavailable [phone] REASON FOR VISIT SCC left distal pretibial region [id number] Encounters Encounter Location Date Provider Diagnosis [facility] [address] [place] [address] 01/24/2025 KEITH VELÁSQUEZ Plan Of Treatment Next Appt Details Provider Name:AKOSUAABDULAZIZ MORSE, 02/02/2025 01:15:00 PM, [address] [place] [address], [phone], Provider Name:AKOSUAABDULAZIZ MORSE, 03/01/2025 09:00:00 AM, [address] [place] [address], [phone], Provider Name:AKOSUA MORSE, 03/15/2025 09:00:00 AM, [address] [place] [address], [phone], Provider Name:AKOSUA MROSE, 06/29/2025 01:00:00 PM, [address] [place] [address], [phone], Progress Notes * Hesham RICARDO DDOB: [birth year] (79 yo M)Acc No.[id number]:01/24/2025 UNLOCKED PROGRESS NOTE Patient:?Hesham RICARDO :?KEITH VELÁSQUEZ, [facility]1945???Age:79 Y ???Sex:MaleDate:01/24/2025Phone:[phone]:[address], [id number]:Anila Saeed In:01:21 PM ESTCheck Out:03:14 PM EST Subjective: * Chief Complaints: * 1 . SCC left distal pretibial region [id number]. * Medical History: Objective: * Vitals: Assessment: Plan: * Treatment: * * Electronic signature of KEITH VELÁSQUEZ MD on 01/25/2025 at 06:10 AM ESTSign off status: PendingVisit Status:?CHK (Check Out) * Provider: Jeff VELÁSQUEZ MD Date: 03/26/2024 Generated for Printing/Faxing/eTransmitting on:?01/25/2025 06:10 AM EST
[2025-01-25 06:06] VITALS: BP 141/85; PULSE 61; TEMP 36.5; O2SAT 98; BMI 22.2
--- OUTSIDE RECORDS SUMMARY | 2025-01-25 06:08 | XMS_ITS | CCD ---
Author Organization [facility] Care Team Providers Care Distillation Operator Name Role Phone Keith Atkinson Unavailable Keith Puente Unavailable Keith Atkinson Primary Care Physician Teetee Gonzalez Unavailable Unavailable CHINA, DR PARKER Admitting Unavailable CHINA, DR PARKER Attending Unavailable GIRNICO, DR PARKER Consulting Unavailable CHINA, DR PARKER Primary Care Unavailable DAVE, DR GANN Attending Unavailable DAVE, DR GANN Consulting Unavailable DAVE, DR GANN Admitting Unavailable CHINA, DR PARKER Primary Care Unavailable GIRNICO, DR PARKER Consulting Unavailable GIRNICO, DR PARKER Primary Care Unavailable GIRVIN, DR PARKER Admitting Unavailable GIRVIN, DR PARKER Attending Unavailable GIRVIN, DR PARKER Consulting Unavailable ARELIS CARMONA Attending Unavailab Sanjuanita Ferreira Attending Unavailable Sanjuanita ACOSTA Attending Unavailable Keith Atkinson MD Primary Care Provider [phone] Keith Atkinson DO Primary Care Provider Se Starkye DO Attending Provider Marcela Keller MD Admit Provider Azael Stewart DO Other Provider Génesis Hodges NP Unavailable Casper Aguirre DO Unavailable Keith Atkinson MD Primary Care Provider Keith Atkinson MD Primary Care Provider [phone] Keith Atkinson MD Primary Care Provider [phone] CASPER AGUIRRE Attending Unavailable GÉNESIS HODGES Attending Unavailable COLLIN IQBAL Attending Unavailable GÉNESIS HODGES Referring Unavailable CAROL FRANCO Attending Unavailable GÉNESIS HODGES Attending Unavailable Keith Atkinson DO Primary Care Provider [phone] Andrez Toledo MD Attending Provider Carroll HAIRSTON-MOLD FILLER-Génesis Trujillo Attending Provider Keith Atkinson DO Attending Provider Andrez Toledo MD Other Provider Keith Atkinson Primary Care Unavailable Andrez Toledo Admitting Unavailable Andrez Toledo Attending Unavailable Keith Atkinson Admitting Unavailable Keith Atkinson Primary Care Unavailable Keith Atkinson Attending Unavailable Azael Stewart Consulting Unavailable Keith Atkinson Primary Care Unavailable Marcela Keller Admitting Unavailable Se Starkey Attending UnavailMyles Avalos APRN Attending Provider Allergies Allergy ClassificationReported Allergen(s)Allergy TypeDate of OnsetReaction(s) Facility (20 sources)Penicillin; Translations: [penicillin][facility]hi[facility] (20 sources)SulfacetamideDrug Yzaeqja41-27-1978alipgQzruepoyxSouthern [facility] (20 sources)Penicillins; Translations: [penicillins]Drug xsotxqe52-45-2718Qgoax, Unknown Reaction, hivesExecutive Urology of [facility] comment on above:pt able to take albuterol (6 sources)Sulfonamides (Antibiotic); Translations: [sulfa drugs]Drug allergy HivesExecutive [facility]rology of [facility] (1 source)Sulfonamides (Antibiotic)Drug allergy (disorder)[facility] (11 sources)Sulfonamides (Antibiotic); Translations: [Sulfa (Sulfonamide Antibiotics)]Allergy to -44-0513[facility]sp[facility] (15 sources)Sulfonamides (Antibiotic)Propensity to adverse ylfbwpaqq61-42-2928 [facility] (1 source)SulfacetamideDrug Yhescul88-36-4611NxbwdrtbtKind[facility] Medications Current Medications MedicationDrug Class(es)DatesSig (Normalized)Sig (Original)[id number] 200 actuat albuterol 0.09 mg/actuat metered dose inhaler (18 sources)beta2-Adrenergic AgonistStart: 47-08-4018Anoydufla Sulfate (Proair Hfa) 90 mcg/actuation HFA aerosol inhaler Active 2 INH INHALATION Every 4hours September 26, 2023 12:00am Complies with drug therapyStart: 00-34-2301DwoToq HFA 108 (90 Base) MCG/ACT NICK 2 inhalations Inhalation up to 4 times per day prn Jsijls933 actuat budesonide 0.16 mg/actuat / formoterol fumarate 0.0048 mg/actuat / glycopyrrolate 0.009 mg/actuat metered dose inhaler (2 sources)Corticosteroid, beta2-Adrenergic AgonistStart: 10-13-2024 Yfcdynratp-Qofyumfv-Bteeuhttgk (Breztri Aerosphere) 160-9-4.8 mcg/actuation HFA aerosol inhaler Active 2 INH INHALATION Daily October 13, 2024 12:00am Complies with drug therapyciprofloxacin 500 mg oral tablet (1 source)Quinolone AntimicrobialStart: 05-12-2023 End: 45-72-4376flqx 1 tablet by mouth every twelve hoursCipro 500 mg Tab 500 mg = 1 tab(s), Oral, q12hr, X 4 week(s), # 56 tab(s), Refills(s) 0, Pharmacy: [facility]/pharmacy #[id number], 177, cm, 01/27/23 11:11:00 EST, Height/Length Dosing, 74, kg, 01/27/23 11:11:00 EST, Weight Dosing Start Date: 05/12/23 Stop Date: 06/09/23 Status: OrderedCoenzyme Q10 200 mg oral capsule (5 sources)Start: 61-22-8522riwf 1 capsule by mouth once dailyCoenzyme Q10 200 mg oral capsule 1cap, Oral, Daily, Refills(s) 0, High cholesterol Start Date: 07/11/17 Status: Ordereddicyclomine hydrochloride 20 mg oral tablet (12 sources)AnticholinergicStart: 38-29-2807zwnm 1 mg by mouth four times daily dicyclomine 20 mg Tab mg tab(s), Oral, QID, Refills(s) 0 Start Date: 03/29/19 Status: OrderedDicyclomine HCl 20 MG 1 tablet Orally q6-8 hrs prn Activedocusate sodium 50 mg / sennosides, retirement 8.6 mg oral tablet (3 sources)Start: 37-35-2898qaal 2 tablets by mouth every twelve hoursSenokot S 8.6-50 MG 2 TABLETS Orally TWICE A DAY for 30 day(s) Apr, Active donepezil hydrochloride 5 mg oral tablet (20 sources)Start: 10-11-2024 End: 04-71-1501wnbj 1 tablet by mouth once daily at bedtimeDonepezil 5 mg tablet Active 5 MG PO Daily at bedtime November 15, 2024 3:31pm Complies with d rug therapyStart: 13-45-9061kjtu 1 tablet by mouth at bedtimedonepezil (Aricept) 5 MG tablet Indications: Mild cognitive impairment TAKE 1 TABLET BY MOUTH AT BED TIME 90 tablet 1 05/19/2024 Activefinasteride 5 mg oral tablet (20 sources)5-alpha Reductase InhibitorStart: 20-91-0166siuw 1 tablet by mouth once dailyFinasteride 5 mg tablet Active 5 MG PO Daily August 21, 2021 12:00am Complies with drug therapyFish Oils (5 sources)Start: 78-17-5652qsqw 1200 mg by mouth once dailyFish Oil 1,200 mg, Oral, Daily, Refill(s) 0, Prophylaxis Start Date: 01/10/17 Status: Ordered hyoscyamine sulfate 0.125 mg oral tablet (1 source)Start: 90-95-0554fmpm 1 tablet by mouth four times dailyhyoscyamine 0.125 mg oral Tab 0.125 mg = 1 tab(s), Oral, QID, Refills(s) 0 Start Date: 03/29/19 Status: Orderedmecobalamin 1 mg chewable tablet (17 sources)Start: 09-26-2023 End: 66-58-2663cmxi 1 tablet by mouth once dailyMecobalamin (Vitamin B12) 1,000 mcg tablet,chewable Active 1000 MCG PO Daily April 14, 2024 9:28am 1,000 mcg orally 1 tablet Orally qd x6 days a week; Complies with drug therapymeloxicam 15 mg oral tablet (5 sources)Nonsteroidal Anti-inflammatory DrugStart: 99-22-1919muly 1 mg by mouth once dailymeloxicam 15 mg oral tablet mg tab(s), Oral, Daily, Refills(s) 0 Start Date: 03/04/19 Status: OrderedmetroNIDAZOLE 500 mg oral tablet (1 source)Nitroimidazole AntimicrobialStart: 17-07-5541iutj 1 tablet by mouth every twelve hoursmetroNIDAZOLE 500 MG 1 tablet Orally Twice a day for 10 day(s) July, Activeniacinamide 100 mg oral tablet (15 sources)take 1 tablet by mouth in the morningniacinamide 100 MG tablet Take 100 mg by mouth in the morning and 100 mg in the evening. Take with meals. Activenystatin 403793 unt/ml oral suspension (10 sources)Polyene AntifungalStart: 74-03-1378Ypdqxbwj 450383 UNIT/ML 5 ml (2.5 ml each side of the mouth) Mouth/Throat qid for 7 days Apr, ActiveStart: 97-24-6979Ylzutogc 736851 UNIT/ML 5 ml (2.5 ml each side of the mouth) Mouth/Throat qid for 7 days Apr, Activeomeprazole 40 mg delayed release oral capsule (2 sources)Proton Pump InhibitorStart: 10-10-6520airp 1 capsule by mouth once dailyOmeprazole 40 mg capsule,delayed release(DR/EC) Active 40 MG PO Daily October 26, 2024 12:00am Complies with drug therapyProAir HFA 108 (90 Base) MCG/ACT (13 sources)Start: 44-29-7104WtwXbw HFA 108 (90 Base) MCG/ACT 2 inhalations Inhalation up to 4 times per day May, Activepromethazine hydrochloride 25 mg oral tablet (5 sources)PhenothiazineStart: 79-34-8982vhka 1 mg by mouth every six hours as needed for nauseapromethazine 25 mg Tab mg tab(s), Oral, q6hr, PRN as needed for nausea/vomiting, Refills(s) 0 StartDate: 03/29/19 Status: Orderedsimvastatin 40 mg oral tablet (20 sources)HMG-CoA Reductase InhibitorStart: 62-93-1170ayxc 1 tablet by mouth at bedtimeSimvastatin 40 mg tablet Active 0 .ROUTE .COMPLEX May 26, 2024 8:53am TAKE 1 TABLET BY MOUTH AT BEDTIME Complies with drug therapyStart: 10-14-2023 End: 89-96-7133pjcb 1 tablet by mouth once daily in the eveningSimvastatin 40 mg tablet Discontinued 40 MG PO Every evening October 14, 2023 8:28am May 2658:53amStart: 05-27-2023 End: 60-71-0398rpvf 1 tablet by mouth at bedtimeSimvastatin 40 mg tablet Discontinued 0 .ROUTE .COMPLEX May 27, 2023 9:53am October 14, 2023 8:29am TAKE 1 TABLET BY MOUTH AT BEDTIMEStart: 05-27-2023 End: 70-57-8288jsdo 1 tablet by mouth at bedtimeSimvastatin Discontinued 0 .ROUTE .COMPLEX May 27, 2023 9:53am October 14, 2023 8:29am TAKE 1 TABLET BY MOUTH AT BEDTIMEStart: 01-10-2017 End: 03-99-7726dkvr 1 tablet by mouth once dailySimvastatin 40 mg tablet Discontinued 40 MG PO Daily August 21, 2021 12:00am May 27, 2023 9:53am sucralfate 1000 mg oral tablet (1 source)Aluminum ComplexStart: 27-02-3120yjrr 1 tablet by mouth every eight hoursCarafate 1 GM 1 tablet on an empty stomach Orally tid for 30 day(s) Jun, Activeubidecarenone 30 mg oral capsule (20 sources)Start: 79-66-5752Yvewngbm Q10 (Co Q-10) 30 mg Capsule Active 30 MG PO Daily August 21, 2021 12:00am Complies with drug therapytake 2 capsules by mouth once dailyco-enzyme Q-10 30 MG capsule Take 60 mg by mouth Daily Active valACYclovir 1000 mg oral tablet (20 sources)Herpesvirus Nucleoside Analog DNA Polymerase Inhibitor, Herpes Simplex Virus Nucleoside Analog DNA Polymerase Inhibitor, Herpes Zoster Virus Nucleoside Analog DNA Polymerase InhibitorStart: 01-20-2024 End: 72-56-5453Vfpsozedfdac (Valtrex) 1 gram tablet Active 1000 MG PO Three times daily as needed for cold sores October 05, 2024 10:32am Complies with drug therapyStart: 11-17-2023 End: 73-84-8986eyeg 1 tablet by mouth three times daily as neededValacyclovir (Valtrex) 500 mg tablet Discontinued 500 MG PO Three times daily as needed for cold sores November 17, 2023 12:00am November 19, 2023 1:57pmStart: 01-10-2017 End: 05-21-7032pknv 1 tablet by mouth once dailyValacyclovir (Valtrex) 500 mg tablet Discontinued 500 MG PO Daily 90 November 19, 2023 1:57pm October 05, 2024 10:33amvalACYclovir HCl 500 mg TAKE 1 TABLET THREE TIMES A DAY FOR 10 DAYS DIRECTED NEEDED prn Not-Taking/PRN24 hr venlafaxine 75 mg extended release oral capsule (20 sources)Serotonin and Norepinephrine Reuptake InhibitorStart: 72-87-2277jqvd 1 capsule by mouth once daily at mealtimeVenlafaxine 75 mg capsule,extended release 24hr Active 0 .ROUTE .COMPLEX 90 July 14, 2024 8:00amTAKE 1 CAPSULE BY MOUTH DAILY WITH FOOD Complies with drug therapyStart: 10-14-2023 End: 66-25-7949wcwn 1 capsule by mouth once dailyVenlafaxine 75 mg capsule,extended release 24hr Discontinued 75 MG PO Daily October 14, 2023 8:28am July 14, 2024 8:00amStart: 09-19-2023 End: 45-67-4074ohlq 1 capsule by mouth once daily at mealtimeVenlafaxine 75 mg capsule,extended release 24hr Discontinued 0 .ROUTE .COMPLEX September 19, 2023 8:09am October 14, 2023 8:29am TAKE 1 CAPSULE BY MOUTH DAILY WITH FOODStart: 03-04-2019 End: 82-59-6505mxgy 1 capsule by mouth once daily at mealtimeVenlafaxine 75 mg capsule,extended release 24hr Discontinued 75 MG PO Daily September 19, 2023 12:00amJun2023 8:09am WITH FOODtake 1 tablet by mouth once daily venlafaxine (Effexor) 75 MG tablet Take 75 mg by mouth Daily Activevitamin b12 1 mg extended release oral tablet (20 sources)Vitamin O16Mdmdz: 60-28-5680ibgr 1 tablet by mouth once dailyVitamin B12 1000 MCG 1 tablet Orally qd x6 days a week Aug, ActiveStart: 54-09-8438Ddgonts B-12 100 microgram, Oral, MonFri, Refills(s) 0, Prophylaxis Start Date: 01/10/17 Status: Orderedtake 1 tablet by mouth once daily cyanocobalamin (Vitamin B-12) 1000 MCG tablet Take 1,000 mcg by mouth Daily ActiveVitamin B12 1000 MCG (18 sources)Start: 99-32-6478zswm 1 tablet by mouth once dailyVitamin B12 1000 MCG 1 tablet Orally qd x6 days a week Aug, ActiveStart: 38-35-2243ufoi 1 tablet by mouth once dailyVitamin B12 1000 MCG 1 tablet Orally Once a day Aug, Active Completed/Discontinued Medications MedicationDrug Class(es)DatesSig (Normalized)Sig (Original)bisacodyl 5 mg delayed release oral tablet (20 sources)Stimulant LaxativeStart: 09-26-2023 End: 48-34-3050ktop 2 tablets by mouth once dailyBisacodyl (Dulcolax (Bisacodyl)) 5 mg tablet,delayed release (DR/EC) Discontinued 0 PO Daily September 9:55am October 14, 2023 8:17am take 2 (5 MG) tablets orally dailyStart: 08-21-2021 End: 43-99-6988zwaa 1 tablet by mouth once daily at bedtimeBisacodyl (Dulcolax (Bisacodyl)) 5 mg Tablet,Delayed Release (Dr/Ec) Discontinued 5 MG PO Daily at b edtime August 21, 2021 12:00am September 26, 2023 9:57amStart: 28-48-2963sojz 2 tablets by mouth once daily as neededDulcolax 5 MG 2 tab Orally Once a day prn July, Activeclotrimazole 10 mg oral lozenge (8 sources)Azole AntifungalStart: 49-83-3473Myedxqhvmbug 10 MG dissolve 1 osvaldo Mouth/Throat five times a day for 7 days Apr, Not-Taking/PRNdoxycycline hyclate 100 mg oral capsule (20 sources)Tetracycline-class DrugStart: 04-26-2024 End: 26-63-9950celf 1 capsule by mouth twice dailyDoxycycline Hyclate 100 mg capsule Discontinued 100 MG PO Twice daily 20 June 30, 2024 1:56pm October 05, 2024 10:33amStart: 99-15-3587xrbt 1 capsule by mouth every twelve hours Doxycycline Hyclate 100 MG 1 capsule Orally Twice a day for 10 day(s) Mar, FnvxwmVrbrejfbmit-Sykmzwoeq-Twbwubvu (7 sources)Anticholinergic, Corticosteroid, beta2-Adrenergic AgonistStart: 04-14-2024 End: 29-19-2220Lnjqyuhtoko-Umeclidin-Vilanter (Trelegy Ellipta) 100-62.5-25 mcg blister with device Discontinued INHALATION April 14, 2024 1:00am October 13, 2024 11:23amStart: 04-10-3346Dmhmzpqhvup-Umeclidin-Vilanter (Trelegy Ellipta) 100-62.5-25 mcg blister with device Active INHALATION April 14, 2024 1:00am Complies with drug therapyStart: 40-45-1779Ygnmn: 04-14-2024 Txxmtcjtkum-Pfoslhhfe-Hcchibng (Trelegy Ellipta) 100-62.5-25 mcg blister with device Active INHALATION April 14, 2024 1:00amStart: 04-14-2024 Bieiepbidgb-Mbiftiqjm-Olhcgodh (Trelegy Ellipta) 100-62.5-25 mcg blister with device Active INHALATION April 14, 2024 12:00amlubiprostone 0.024 mg oral capsule (5 sources)Chloride Channel ActivatorStart: 90-32-4909vmau 1 capsule by mouth twice dailyAmitiza 24 mcg Cap 24 microgram = 1 cap(s), Oral, BID, # 60 cap(s), Refills(s) 0, Pharmacy: [facility]/pharmacy #[id number] Start Date: 03/30/19 Status: Ordered pantoprazole 40 mg delayed release oral tablet (20 sources)Proton Pump InhibitorStart: 08-02-2021 End: 62-03-6336dckm 1 tablet by mouth once dailyPantoprazole 40 mg tablet,delayed release (DR/EC) Discontinued 40 MG PO Daily August 21, 2021 12:00am October 14, 2023 8:18ampredniSONE 20 mg oral tablet (5 sources)Start: 06-30-2024 End: 60-16-6976akat 3 tablets by mouth once daily at mealtime, then take 2 tablets by mouth once daily, then take 1 tablet by mouth once daily at mealtime Prednisone 20 mg tablet Discontinued 0 PO .with food or milk 18 June 30, 2024 12:00am October 05, 2024 10:32am take 3 tablets a day x3 days, 2 tabs a day x3 days and then 1 tab a day x3 days orally WITH FOOD OR MILK;60 actuat tiotropium 0.0025 mg/actuat inhalation spray (20 sources)AnticholinergicStart: 09-26-2023 End: 89-11-8405lcha 1 puff(s) by inhalation once dailyTiotropium [place]on (Spiriva Respimat) 2.5 mcg/actuation mist Discontinued 2 PUFF INHALATION Daily September 26, 2023 12:00am December 17, 2023 2:22pmStart: 28-13-1135rpyc 2 puff(s) by inhalation once dailySpiriva Respimat 2.5 MCG/ACT 2 puffs Inhalation Once a day quantity sufficient for 90 days July, ActiveStart: 07-30-2019 take 2 puff(s) by inhalation once dailySpiriva Respimat 2.5 MCG/ACT 2 puffs Inhalation Once a day quantity sufficient for 90 days July, Activetake 1 capsule by inhalation in the morningtiotropium (Spiriva) [address] 1 capsule into inhaler and inhale in the morning. Active Problems Active Problems Problem ClassificationProblemDateDocumented DateEpisodic/ChronicAbdominal pain (20 sources)Abdominal pain; Translations: [Unspecified abdominal pain]Onset: 03-13-2021 Resolved: 17-83-5182AxhaujzvYrtrkwm disorders (20 sources)Mixed anxiety and depressive disorder; Translations: [Anxiety disorder, unspecified]Onset: 03-13-2021 Resolved: 40-98-1040CftoqenXqsyaxlw of urinary tract (5 sources)History of calculus of kidney; Translations: [Personal history of urinary calculi]Onset: 13-37-3065BiwdnvnaIyomiidb (1 source)Bilateral 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 cataract eyes; Translations: [Cortical age-related cataract, bilateral]99-04-3547RllypfqSwfcllf obstructive pulmonary disease and bronchiectasis (20 sources)Chronic obstructive lung disease; Translations: [Chronic obstructive pulmonary disease, unspecified]Onset: 03-13-2021 Resolved: 07-06-2071VaczlmvBxttvvialh associated with dizziness or vertigo (20 sources)Vertigo; Translations: [Dizziness and giddiness]Onset: 05-28-2024 88-34-6579PerghkzxIatnhimpdf and other anemia (11 sources)Anemia, unspecified; Translations: [Anemia, unspecified]Onset: 03-13-2021 Resolved: 16-07-1395HdyrdxknUkahzfyqbf and other anemia (10 sources)Anemia; Translations: [Anemia, unspecified]64-40-8753Zopgcidr Delirium, dementia, and amnestic and other cognitive disorders (7 sources)Dementia; Translations: [Unspecified dementia without behavioral disturbance]Onset: 544270-39-3620QyljlxnBuhcvxoc mellitus without complication (20 sources)Hyperglycemia, unspecified; Translations: [Hyperglycemia]Onset: 03-13-2021 Resolved: 73-56-6372MufyamyaKhlashrd of mouth; excluding dental (1 source)Other forms of stomatitisEpisodicDisorders of lipid metabolism (20 sources)Hyperlipidemia; Translations: [Hyperlipidemia, unspecified]Onset: 03-13-2021 Resolved: 29-50-0389XlfatsvPynouejbtbawbp and diverticulitis (5 sources)Xntipkxbvfxvzm02-28-8160ZpydlbyFlyeocwnwf disorders (20 sources)Acid reflux; Translations: [Gastro-esophageal reflux disease without esophagitis]Onset: 09-13-2021 Resolved: 09-25-7647MxnkwbkYiohnzchtwsdzccj hemorrhage (20 sources)Melena; Translations: [Melena]EpisodicGenitourinary symptoms and ill-defined conditions (10 sources)Blood in urine; Translations: [Gross hematuria]Onset: 01-27-2023 95-97-9733HjhypqkuGkwmdajwmgc of prostate (20 sources)Benign prostatic hyperplasia; Translations: [Benign prostatic hyperplasia without lower urinary tract symptoms]Onset: 03-13-2021 Resolved: 90-03-5920RasrozmUihqiwbxtljg; infection of eye (except that caused by tuberculosis or sexually transmitteddisease) (1 source)Blepharitis of bilateral upper eyelids; Translations: [Unspecified blepharitis right upper eyelid]37-00-3487XluljpbiJcpnecpude infection (5 sources)Bacterial overgrowth fsaivlth03-89-3846BtvcptfnMrajalh (2 sources)Candidal stomatitisEpisodicNausea and vomiting (12 sources)Nausea; Translations: [Nausea and vomiting]Onset: 05-09-2021 Resolved: 32-71-6378SrmdmsgfScgtabvelzx chest pain (13 sources)Chest pain, unspecified; Translations: [Chest pain]EpisodicOther aftercare (7 sources)Other residential (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 therapy; Translations: [OTH RETENTION REPRESENTATIVE CURRENT DRUG THERAPY]Onset: 03-13-2021 Resolved: 35-24-2526HeeeofreTbuvz and unspecified benign neoplasm (8 sources)Neoplasm and/or hamartoma; Translations: [Melanocytic nevi, unspecified]91-65-1547AuubdldsVdwwmzf on above:left earOther and unspecified benign neoplasm (2 sources)Melanocytic nevi, unspecified; Translations: [Neoplasm of uncertain behavior of skin]71-91-4009XcstkofoAfucr diseases of kidney and ureters (1 source)Urinary tract obstruction; Translations: [Other obstructive and reflux uropathy]Onset: 25-78-0168IdqnadykPhwit gastrointestinal disorders (20 sources)Irritable bowel syndrome; Translations: [Irritable bowel syndrome without diarrhea]79-29-6809VrbkdhiKoklm gastrointestinal disorders (14 sources)Irritable bowel syndrome characterized by constipation; Translations: [Irritable bowel syndrome with constipation]ChronicOther gastrointestinal disorders (5 sources)Chronic idiopathic jsbrjtzwcamo31-83-2165HlwhgydLvsdq gastrointestinal disorders (20 sources)Constipation; Translations: [Constipation, unspecified]08-22-2021 EpisodicOther gastrointestinal disorders (8 sources)Constipation, unspecified; Translations: [Constipation, unspecified] Onset: 03-13-2021 Resolved: 42-05-3646BbyriguoDlzos gastrointestinal disorders (5 sources)Rfwgivzxc28-84-7715IgfvorhbItbpa hereditary and degenerative nervous system conditions (10 sources)Impaired cognition; Translations: [Mild cognitive impairment, so stated]85-18-3037CwnakvvEyoen hereditary and degenerative nervous system conditions (2 sources)Mild cognitive disorder ; Translations: [Mild cognitive impairment, so stated]94-56-6967JmlhhxuBoull lower respiratory disease (2 sources)Shortness of breathEpisodicOther nervous system disorders (14 sources)Cervical myelopathy; Translations: [Disease of spinal cord, unspecified]47-28-0928ElbujviFbihx nervous system disorders (10 sources)Impaired cognition; Translations: [Other symptoms and signs involving cognitive functions and awareness]18-66-6593VsxiswmxHydfi nervous system disorders (4 sources)Word finding difficulty ; Translations: [Other speech disturbances] 95-21-7956FfraokvpFndnh nutritional; endocrine; and metabolic disorders (3 sources)Abnormal weight gainOnset: 03-13-2021 Resolved: 14-82-4364IavlddzvLvpoa nutritional; endocrine; and metabolic disorders (3 sources)Abnormal weight loss; Translations: [Loss of weight]EpisodicOther nutritional; endocrine; and metabolic disorders (4 sources)Weight loss; Translations: [Abnormal weight loss]76-70-3049Vdgiydwe Other nutritional; endocrine; and metabolic disorders (17 sources)Weight decreased; Translations: [Abnormal weight loss]10-14-2023 EpisodicOther nutritional; endocrine; and metabolic disorders (10 sources)Loss of appetite; Translations: [Anorexia]17-72-8972ZnxdbminUkmvo screening for suspected conditions (not mental disorders or infectious disease) (20 sources)Abnormal results of thyroid function studies; Translations: [Abnormal blood-gas level]Onset: 03-13-2021 Resolved: 80-58-8596XebxhsulRimferuf codes; unclassified (6 sources)Other amnesia; Translations: [Memory loss]Onset: 03-13-2021 Resolved: 58-51-1223CfbjmzpbXuhrrhqo codes; unclassified (10 sources)Insomnia; Translations: [Insomnia, unspecified]23-98-2888Stzyilad Residual codes; unclassified (10 sources)Memory impairment; Translations: [Other amnesia]60-08-9615Vxkyazos Residual codes; unclassified (2 sources)Amnesia; Translations: [Other amnesia]91-31-3096NmjvutdlWmgrdhue codes; unclassified (2 sources)Family history of dementia; Translations: [Family history of other mental and behavioral disorders]66-64-3488PiuxwyxcOahvivza codes; unclassified (11 sources)Early satiety; Translations: [Early satiety]75-87-5710Reckrncd Screening and history of mental health and substance abuse codes (5 sources)Yu-pzufrl26-42xvdfhf52-87-6501WthkbtfbKosj and subcutaneous tissue infections (12 sources)Abscess; Translations: [Cutaneous abscess, unspecified]10-14-2023 EpisodicSpondylosis; intervertebral disc disorders; other back problems (20 sources)Degeneration of lumbar intervertebral disc; Translations: [Other intervertebral disc degeneration, lumbar region]ChronicUnclassified (5 sources)Patient encounter -88-2957Rcevv infection (14 sources)Herpesviral vesicular dermatitis; 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] Onset: 09-13-2021 Resolved: 23-17-8447Ajpnizlr Past or Other Problems Problem ClassificationProblemDateDocumented DateEpisodic/ChronicImmunizations and screening for infectious disease (1 source)Contact with and (suspected) exposure to other viral communicable diseasesOnset: 03-27-2021 Resolved: 46-08-6434CvrnjtamIeaqnuy and fatigue (1 source)Other fatigueOnset: 03-27-2021 Resolved: 84-03-3654BnjkbcfqKhffj upper respiratory infections (1 source)Acute sinusitis, unspecifiedOnset: 04-04-2021 Resolved: 96-55-2056AfzlkydnPqbiq infection (1 source)COVID-19Onset: 04-04-2021 Resolved: 04-04-2021 Results Test NameValueInterpretationReference RangeFacilityLon 10-26-2024 Specimen: [id number] Received: 10/26/24 Status: LYNETTE Gonzalez Num: [id number] Spec Type: Surgical Subm Dr: Andrez Toledo MD Tissues: A Small Intestine - Biopsy/Polyp (SMALL BOWEL BX) B Gastric Biopsy (GASTRIC BX) Procedures: HE/4, Gross/Micro L4/2 Age/ Patient Sex Location Account Attending Physician Jb Vail /[facility] [id number] Andrez Toledo MD SPEC NUM: [id number] RECD: 10/26/24 STATUS: LYNETTE GONZALEZ NUM: [id number] VIET: 10/26/[address] [facility] [address]: Andrez Toledo MD ENTERED: 10/26/[address] [facility] [address]: SPEC TYPE: Surgical DEPT: S ENTERED BY: [id number] RECV BY: [id number] ORDERED: HE/4, Gross/Micro L4/2 ORDERED: HE/4, Gross/Micro L4/2 Pathological Diagnosis A. Duodenum (mucosal biopsies): Within normal limits No features of celiac disease or dysplasia seen B. Stomach (mucosal biopsy): Antral mucosa, within normal limits No Helicobacter pylori organisms, intestinal metaplasia, or dysplasia seen Clinical Information Abdominal pain, nausea, weight loss, Part A rule out celiac, Part B rule out H. pylori Gross Description Part A is received in formalin labeled with the patients name, date of , and small bowel BX are 2 hammonds-evans, focally erythematous, friable, 0.3 cm each in greatest dimension tissue bits. The specimen is entirely submitted in a single cassette. (1, ns, [id number] A) Part B is received in formalin labeled with the patients name, date of , and gastric BX is a hammonds-evans, focally erythematous, friable, 0.4 cm in greatest dimension tissue bit. The specimen is entirely submitted in a single cassette. (1, ns, [id number] B) Specimen: [id number] Received: 10/26/24 Status: LYNETTE Gonzalez Num: [id number] Spec Type: Surgical Subm Dr: Andrez Toledo MD Tissues: A Small Intestine - Biopsy/Polyp (SMALL BOWEL BX) B Gastric Biopsy (GASTRIC BX) Procedures: HE/4, Gross/Micro L4/2 Patient: Jb Vail [id number] ([facility]) Specimen: [id number] Received: 10/26/24 (Continued) Signed (signature on file) Rl Martin Jr., MD 10/27/2419 Specimen: [id number] Received: 10/26/24 Status: LYNETTE Laashish Num: [id number] Spec Type: Surgical Subm Dr: Andrez Toledo MD Tissues: A Small Intestine - Biopsy/Polyp (SMALL BOWEL BX) B Gastric Biopsy (GASTRIC BX) Procedures: Satya AWAN/Renée L4/2 Patient: Jb Vail [id number] (Continued) Specimen: [id number] Received: 10/26/24 (Continued) CPT Codes 19094 x 2 Specimen: [id number] Received: 10/26/24 Status: LYNETTE Ino Num: [id number] Spec Type: Surgical Subm Dr: Andrez Toledo MD Tissues: A Small Intestine - Biopsy/Polyp (SMALL BOWEL BX) B Gastric Biopsy (GASTRIC BX) Procedures: NANETTE/Marisa, Gross/Micro L4/2 Patient: Jb Vail [id number] (Continued) Signed (signature on file) Rl Martin Jr., MD 10/27/24 0919NoQu[facility] Phys[facility] VqaxgG5E with Estimated Average Gluon 75-74-2158Nxeeogt [Mass/Vol]105 mg/dLAdventHealth Wesley Chapel Physician GroupComment on above:Result Comment: PERFORMED BY: [place] [address] PATHOLOGIST CARD TAPE CONVERTER OPERATOR ROSETTA SNEED M.D.Performed By: #### A1C WTH eA, LIPID, [id number], CMP #### [place] [address] USAAlanine aminotransferase [Enzymatic activity/volume] in Serum or PlasmaOrdered By: Keith Atkinson on 10-88-8532GSJ [Catalytic activity/Vol]13 U/L7-52Kindred Hospital DaytonComment on above: Performed By: #### A1C WTH eA, LIPID, [id number], CMP #### [place] [address] USAAlbumin [Mass/volume] in Serum or Plasma by Bromocresol green (BCG) dye binding methoOrdered By: Keith Atkinson on 79-90-1434Gipsnwd BCG dye [Mass/Vol]4.2 g/dL3.5-5.7FEast Liverpool City HospitalAlkaline phosphatase [Enzymatic activity/volume] in Serum or PlasmaOrdered By: Keith Atkinson on 58-28-2974UEP [Catalytic activity/Vol]64 U/F83-025MsuxabmtgKindred Hospital DaytonComment on above:Performed By: #### A1C WTH eA, LIPID, [id number], CMP #### [facility] [address] [place], [place] [address] USAAspartate aminotransferase [Enzymatic activity/volume] in Serum or PlasmaOrdered By: Keith Atkinson on 65-80-0950TWI [Catalytic activity/Vol]17 U/F06-68MacikkwsuKindred Hospital DaytonComment on above: Performed By: #### A1C WTH eA, LIPID, [id number], CMP #### [place] [id number] USABilirubin.total [Mass/volume] in Serum or PlasmaOrdered By: Keith Atkinson on 38-69-5905Womablhhs [Mass/Vol]0.7 mg/dL0.3-1.0[facility] Hospital DaytonComment on above:Performed By: #### A1C WTH eA, LIPID, [id number], CMP #### [facility] [address] [place] [id number] USABlood estimated average glucose determination by estimation from glycated hemoglobinOrdered By: Keith Atkinson on 60-71-7368Htkmuii glucose Estimated from glycated hemoglobin (Bld) [Mass/Vol]105 mg/dLKindred Hospital DaytonCalcium [Mass/volume] in Serum or PlasmaOrdered By: Keith Atkinson on 89-77-6286Vbjnnpz [Mass/Vol]9.5 mg/dL8.6-10.3FEast Liverpool City HospitalComment on above:Performed By: #### A1C WTH eA, LIPID, [id number], CMP #### [facility] [address] [place] [id number] USACarbon dioxide, total [Moles/volume] in Serum or Plasma Ordered By: Keith Atkinson on 21-72-8871IJ6 [Moles/Vol]31.7 mmol/LHigh21.0-31.0 [facility] Hospital DaytonComment on above:Performed By: #### A1C WTH eA, LIPID, [id number], CMP #### [facility] [address] [place] [id number] USAChloride [Moles/volume] in Serum or PlasmaOrdered By: Keith Atkinson on 21-86-4847Nvbeqtyr [Moles/Vol]103 mmol/S74-769EndgzffpmKindred Hospital DaytonComment on above:Performed By: #### A1C WTH eA, LIPID, [id number], CMP #### [facility] [address] [place] [id number] USACholesterol [Mass/volume] in Serum or PlasmaOrdered By: Keith Atkinson on 65-13-0322Rbgjlzcklay [Mass/Vol]172 mg/gC549-070CygrmveowKindred Hospital DaytonComment on above:Chol less than 200 mg/dl low riskChol 201-239 mg/dl borderline riskChol 240 mg/dl and greater high riskResult Comment: Chol less than 200 mg/dl low risk Chol 201-239 mg/dl borderline risk Chol 240 mg/dl and greater high riskPerformed By: #### A1C WT eA, LIPID, [id number], CMP #### [facility] [address] [place] [address] USACholesterol in HDL [Mass/volume] in Serum or PlasmaOrdered By: Keith Atkinson on 03-36-2801Smqilimkbqh in HDL [Mass/Vol]63 mg/dL- [facility] Hospital DaytonComment on above:HDL CHOL ATP-III CLASSIFICATION Cardiovascular RiskHDL > or equal to 60 mg/dL LOWHDL < 40 mg/dL HIGHResult Comment: HDL CHOL ATP-III CLASSIFICATION Cardiovascular Risk HDL > or equal to 60 mg/dL LOW HDL < 40 mg/dL HIGHPerformed By: #### A1C WT eA, LIPID, [id number], CMP #### [facility] [address] [place] [address] USACholesterol in LDL Calc [Mass/Vol]Ordered By: Keith Atkinson on 32-77-2168Jzdiyrrmjfg in LDL [Mass/Vol]94 mg/dL0-100[facility] Hospital DaytonComment on above:LDL ATP III CLASSIFICATIONLDL less than 100 mg/dL OptimalLDL 100-129 mg/dL Near or above tmganozANY124-099 mg/dL Borderline highLDL 160-189 mg/dL HighLDL greater than 189 mg/dL Very highCholesterol in VLDL Calc [Mass/Vol]Ordered By: Keith Atkinson on 40-41-6179Alnedumlixn in VLDL [Mass/Vol]14 mg/dLKindred Hospital DaytonComprehensive Metabolic Panel on 24-75-6913Dxdueot [Mass/Vol]4.2 g/dLNormal3.5-5.7The [facility] Physician GroupComment on above:Performed By: #### A1C WT eA, LIPID, [id number], CMP #### [facility] [address] [place] [address] USAGFR/1.73 sq M.predicted MDRD (S/P/Bld) [Vol rate/Area] mL/min/{1.73_m2}NormalThe [facility] Physician GroupComment on above:Performed By: #### A1C WTH eA, LIPID, [id number], CMP #### [facility] [address] [place] [address] USACreatinine [Mass/volume] in Serum or PlasmaOrdered By: Keith Atkinson on 66-22-7513Zfwsukyhpj [Mass/Vol]0.79 mg/dL0.70-1.30[facility] Hospital DaytonComment on above:Performed By: #### A1C WTH eA, LIPID, [id number], CMP #### [facility] [address] [place] [address] USAFolate [Mass/volume] in Serum or PlasmaOrdered By: Keith Atkinson on 66-82-6333Cezlpf [Mass/Vol]7.7 ng/mL>5.9[facility] Hospital DaytonComment on above:Folate reference range: >5.9 ng/mlThe WHO technical consultation on folate and vitamin i94yxjtrkjaiqgb has determined that folate concentrations lessthan 4 ng/ml are considered deficient.Glucose [Mass/volume] in Serum or PlasmaOrdered By: Keith Atkinson on 28-19-2766Jbvvurs [Mass/Vol]91 mg/gB82-579PgnjqkninKindred Hospital DaytonComment on above:ADA recommended reference rangeRandom Glucose Reference Range is dependent on time and content of last meal. Glucose of more than 200 mg/dL in a nonstressed, ambulatory subject supports the diagnosisof Diabetes Mellitus.Result Comment: Random Glucose Reference Range is dependent on time and content of last meal. Glucose of more than 200 mg/dL in a nonstressed, ambulatory subject supports the diagnosis of Diabetes Mellitus. ADA recommended reference rangePerformed By: #### A1C WTH eA, LIPID, [id number], CMP #### [facility] [address] [place] [address] USAHemoglobin A1c/Hemoglobin.total in BloodOrdered By: Keith Atkinson on 70-22-8907OuH1y (Bld) [Mass fraction]5.3 %4.3-5.6FEast Liverpool City HospitalComment on above:Increased risk for diabetes: 5.7 - 6.4diabetes: >6.4glycemic control for adults with diabetes: <7.0Result Comment: Increased risk for diabetes: 5.7 - 6.4 diabetes: >6.4 glycemic control for adults with diabetes: <7.0Performed By: #### A1C WTH eA, LIPID, [id number], CMP #### [facility] [address] [place] [address] USALipid Panelon 82-03-2758GBW Cholesterol,Wapicypvse38 mg/dL Normal0-100The [facility] Physician GroupComment on above:Result Comment: LDL ATP III CLASSIFICATION LDL less than 100 mg/dL Optimal LDL 100-129 mg/dL Near or above optimal LDL 130-159 mg/dL Borderline high LDL 160-189 mg/dL High LDL greater than 189 mg/dL Very highPerformed By: #### A1C WTH eA, LIPID, [id number], CMP #### [facility] [address] [place] [address] USATriglyceride w/Ionluv67 mg/dLNormal0-149The [facility] Physician GroupComment on above:Result Comment: TRIG ATP III CLASSIFICATION TRIG less than 150 mg/dL Normal TRIG 150-199 mg/dL Borderline high TRIG 200-500 mg/dL High TRIG greater than 500 mg/dL Very high Standard traceable to the Center for Disease Conrtrol and Prevention (CDC) test method.Performed By: #### A1C WTH eA, LIPID, [id number], CMP #### [facility] [address] [place] [address] USAVLDL MPAFLDOHAXX75 mg/dLNormalThe [facility] Physician GroupComment on above:Performed By: #### A1C WTH eA, LIPID, [id number], CMP #### [facility] [address] [place] [address] USANo Panel InformationOrdered By: Keith Atkinson on 10-12-2024 Estimated GFR (CKD-EPI)> 60.0 mL/MinKindred Hospital DaytonPharmacy Creatinine Clearance (ChemN/Samaritan HospitalPotassium [Moles/volume] in Serum or PlasmaOrdered By: Keith Atkinson on 08-77-0276Rckuhgvwo [Moles/Vol]4.5 mmol/L3.5-5.1FEast Liverpool City HospitalComment on above: Performed By: #### A1C WTH eA, LIPID, [id number], CMP #### [facility] [address] [place] [address] USAProtein [Mass/volume] in Serum or PlasmaOrdered By: Keith Atkinson on 46-44-0299Ogmauda [Mass/Vol]6.6 g/dL6.4-8.9[facility] Hospital DaytonComment on above:Performed By: #### A1C WTH eA, LIPID, [id number], CMP #### [place] [address] USASerum globulin measurement by calculation (mass/volume) Ordered By: Keith Atkinson on 03-70-3390Qbpfyike (S) [Mass/Vol]2.4 g/dLKindred Hospital DaytonComment on above:Performed By: #### A1C WTH eA, LIPID, [id number], CMP #### [facility] [address] [place] [address] USASerum or plasma albumin/globulin mass ratioOrdered By: Keith Atkinson on 64-58-4953Uputiyt/Globulin [Mass ratio]1.8 {ratio}[facility] Hospital DaytonComment on above:Performed By: #### A1C WTH eA, LIPID, [id number], CMP #### [facility] [address] [place] [address] USASerum or plasma anion gap determinationOrdered By: Keith Atkinson on 01-74-0818Yymzw gap [Moles/Vol]8.8 mmol/L6.0-15.0[facility] DaytonComment on above:Performed By: #### A1C WTH eA, LIPID, [id number], CMP #### [facility] [address] [place] [address] USASerum or plasma total cholesterol/high density lipoprotein (HDL) cholesterol mass ratOrdered By: Keith Atkinson on 10-12-2024 Cholesterol.total/Cholesterol in HDL [Mass ratio]2.7 {ratio}<5.0[facility] Hospital DaytonComment on above:Performed By: #### A1C WTH eA, LIPID, [id number], CMP #### [facility] [address] [place] [address] USASodium [Moles/volume] in Serum or PlasmaOrdered By: Keith Atkinson on 88-61-0647Vvmvzo [Moles/Vol]139 mmol/W916-359MdysoalqhKindred Hospital DaytonComment on above:Performed By: #### A1C WTH eA, LIPID, [id number], CMP #### [facility] [address] [place] [address] USATriglyceride [Mass/volume] in Serum or PlasmaOrdered By: Keith Atkinson on 50-77-9453Tfgrusimqbjv [Mass/Vol]73 mg/dL0-149[facility] Hospital DaytonComment on above:TRIG ATP III CLASSIFICATIONTRIG less than 150 mg/dL NormalTRIG 150-199 mg/dL Borderline highTRIG 200-500 mg/dL High TRIG greater than 500 mg/dL Very highStandard traceable to the Center for Disease Co nrtrol and Prevention (CDC) test method.Urea nitrogen [Mass/volume] in Serum or PlasmaOrdered By: Keith Atkinson on 32-10-3337Ggtv nitrogen [Mass/Vol]16 mg/dL7-25 [facility] Hospital DaytonComment on above:Performed By: #### A1C WTH eA, LIPID, [id number], CMP #### [facility] [address] [place] [address] USAVit. B12/Folate Profileon 74-44-8534Rbthsc9.7 ng/mLNormal >5.9The [facility] Physician GroupComment on above:Result Comment: Folate reference range: >5.9 ng/ml The WHO technical consultation on folate and vitamin b12 deficiencies has determined that folate concentrations less than 4 ng/ml are considered deficient. PERFORMED BY: [address] [address] PATHOLOGIST CARD TAPE CONVERTER OPERATOR ROSETTA SNEED M.D.Performed By: #### A1C WTH eA, LIPID, [id number], CMP #### [facility] [address] [place] [address] USAVitamin B12 ser/plasOrdered By: Keith Atkinson on 10-12-2024 Cobalamin (Vitamin B12) [Mass/Vol]575 pg/uX705-242UozvitlziKindred Hospital DaytonComment on above:Performed By: #### A1C WTH eA, LIPID, [id number], CMP #### [facility] [address] [place] [address] USABasic Metabolic Panelon 82-25-5445Wutpq gap [Moles/Vol]7.8 mmol/LNormal6.0-15.0The [facility] Physician GroupComment on above:Performed By: #### BMP #### [place] [address] USACalcium [Mass/Vol]9.3 mg/dLNormal8.6-10.3The [facility] Physician GroupComment on above:Performed By: #### BMP #### [place] [address] USAChloride [Moles/Vol]105 mmol/FRoxiap21-246Nui [facility] Physician GroupComment on above:Performed By: #### BMP #### [facility] [address] [place] [address] USACO2 [Moles/Vol]28.0 mmol/UTxnrre93.0-31.0The [facility] Physician GroupComment on above:Performed By: #### BMP #### [facility] [address] [place] [address] USACreatinine [Mass/Vol]0.68 mg/dLLow0.70-1.30The [facility] Physician GroupComment on above:Performed By: #### BMP #### [facility] [address] [place] [address] USACreatinine Clr Calc Xtblelwm02.22NormalThe [facility] Physician GroupComment on above:Result Comment: PERFORMED BY: [place] [address] PATHOLOGIST CARD TAPE CONVERTER OPERATOR TAM BINGHAM M.D.Performed By: #### BMP #### [facility] [address] [place] [address] USAGFR/1.73 sq M.predicted MDRD (S/P/Bld) [Vol rate/Area] mL/min/{1.73_m2}NormalThe [facility] Physician GroupComment on above:Performed By: #### BMP #### [place] [address] USAGlucose [Mass/Vol]143 mg/nWRumu57-388Pgo [facility] Physician GroupComment on above:Result Comment: Random Glucose Reference Range is dependent on time and content of last meal. Glucose of more than 200 mg/dL in a nonstressed, ambulatory subject supports the diagnosis of Diabetes Mellitus. ADA recommended reference rangePerformed By: #### BMP #### [place] [address] USAPotassium [Moles/Vol]4.8 mmol/LNormal3.5-5.1The [facility] Physician GroupComment on above:Performed By: #### BMP #### [place] [address] USASodium [Moles/Vol]136 mmol/CKwenru077-146Ajg [facility] Physician GroupComment on above:Performed By: #### BMP #### [place] [address] USAUrea nitrogen [Mass/Vol]16 mg/dLNormal7-25The [facility] Physician GroupComment on above:Performed By: #### BMP #### [place] [address] USACalcium [Mass/volume] in Serum or PlasmaOrdered By: Marcela Keller on 61-60-4211Lujfvjw [Mass/Vol]Calcium [Mass/volume] in Serum or Plasma8.6-10.3FEast Liverpool City HospitalCarbon dioxide, total [Moles/volume] in Serum or PlasmaOrdered By: Marcela Keller on 74-02-6134LF6 [Moles/Vol]Carbon dioxide, total [Moles/volume] in Serum or Ixhpcc79.0-31.0 [facility] DaytonChloride [Moles/volume] in Serum or Plasma Ordered By: Marcela Keller on 42-77-8777Ryrzxbzw [Moles/Vol]Chloride [Moles/volume] in Serum or Nxqnpa10-116XjbjejflfKindred Hospital Dayton Creatinine [Mass/volume] in Serum or PlasmaOrdered By: Marcela Keller on 97-54-4210Uicujavrux [Mass/Vol]Creatinine [Mass/volume] in Serum or PlasmaLow 0.70-1.30[facility] DaytonGlucose [Mass/volume] in Serum or PlasmaOrdered By: Marcela Keller on 19-55-5014Fosrbzq [Mass/Vol]Glucose [Mass/volume] in Serum or UnksbuPymd52-927NcjjmsileKindred Hospital Dayton Comment on above:ADA recommended reference rangeRandom Glucose Reference Range is dependent on time and content of last meal. Glucose of more than 200 mg/dL in a nonstressed, ambulatory subject supports the diagnosisof Diabetes Mellitus.MR head/brain wo conon 23-18-5343LT head/brain wo [facility] [place] [address] MRI Report Signed Patient: Jb Vial MR#: [id number] : 1945 Acct:[id number] Age/Sex: 78 / M ADM Date: 05/28/24 Loc: Room: [address] [place] [address] Type: ADM INOo Attending Dr: Se Starkey DO Copies to: DO Marcela Ortiz MD Ordering Provider: Marcela Keller MD Date of Service: 05/29/24 MR/MR head/brain wo con: dizzy MRI the Brain without contrast TECHNIQUE: Multiplanar T1 and T2-weighted imaging of the brain. HISTORY: Vertigo. Memory loss. COMPARISON: Head CT 05/28/2024 VENTRICLES: Unremarkable BRAIN VOLUME: Adequate volume of brain parenchyma identified. BRAIN PARENCHYMAL SIGNAL INTENSITY: There is small focus of increased T2/FLAIR signal intensity in the cortical region of the lateral right frontal lobe. Corresponding diffusion signal abnormality within this region. Subtle signal loss with susceptibility imaging. No obvious ADC single change. This may represent small meningioma. This measures up to 6 mm. Findings of chronic small vessel ischemic change. BLEED: None MASS EFFECT: No mass effect DIFFUSION RESTRICTION: As above GRADIENT ECHO PARENCHYMAL SIGNAL LOSS: None MIDBRAIN: The midbrain structures are unremarkable. JOEY: Unremarkable MEDULLA: Unremarkable INTERNAL AUDITORY CANALS: Unremarkable SINUSES: Unremarkable ORBITS: Grossly unremarkable MASTOIDS: Unremarkable ENHANCEMENT: No contrast enhancement given MR/MR head/brain wo con IMPRESSION: 6 mm signal abnormality identified in the lateral portion of the right frontal lobe. This appears be an extra-axial location. This may correspond with a meningioma. This likely an incidental finding. May consider follow-up assessment with contrasted MRI the brain. No acute vascular distribution infarction identified. Diffuse atrophy and chronic small vessel ischemic changes. Impression dictated by: Nick Kurtz M.D.05/29/2024 1:29 PM Dictation Location: [place] [address] Transcribed By: JOHANA 05/29/24 1329 Dictated By: Nick Kurtz DO 05/29/24 1316 Signed By: 05/29/24 1329[facility] Physician GroupSierra Tucsonetic resonance imaging reportOrdered By: Nick Kurtz on 79-51-9847Pzlps reportPIKE COMMUNITY [facility] [place] [address] [place] [address] MRI Report Signed Patient: Jb Vail MR#: [id number] : 1945 Acct:[id number] Age/Sex: 78 / M ADM Date: 5 Loc: 3T Room: [address] [place] [address] Type: ADM INOo Attending Dr: Se Starkey DO Copies to: DO Marcela Ortiz MD~ Ordering Provider: Marcela Keller MD Date of Service: 05/29/24 MR/MR head/brain wo con: dizzy MRI the Brain without contrast TECHNIQUE: Multiplanar T1 and T2-weighted imaging of the brain. HISTORY: Vertigo. Memory loss. COMPARISON: Head CT 05/28/2024 VENTRICLES: Unremarkable BRAIN VOLUME: Adequate volume of brain parenchyma identified. BRAIN PARENCHYMAL SIGNAL INTENSITY: There is small focus of increased T2/FLAIR signal intensity in the cortical region of the lateral right frontal lobe. Corresponding diffusion signal abnormality within this region. Subtle signal loss with susceptibility imaging. No obvious ADC single change. Thismay represent small meningioma. This measures up to 6 mm. Findings of chronic small vessel ischemicchange. BLEED: None MASS EFFECT: No mass effect DIFFUSION RESTRICTION: As above GRADIENT ECHO PARENCHYMAL SIGNAL LOSS: None MIDBRAIN: The midbrain structures are unremarkable. JOEY: Unremarkable MEDULLA: Unremarkable INTERNAL AUDITORY CANALS: Unremarkable SINUSES: Unremarkable ORBITS: Grossly unremarkable MASTOIDS: Unremarkable ENHANCEMENT: No contrast enhancement given MR/MR head/brain wo con IMPRESSION: 6 mm signal abnormality identified in the lateral portion of the right frontal lobe. This appears be an extra-axial location. This may correspond with a meningioma. This likely an incidental finding. May consider follow-up assessment with contrasted MRI the brain. No acute vascular distribution infarction identified. Diffuse atrophy and chronic small vessel ischemic changes. Impression dictated by: Nick Kurtz M.D.05/29/2024 1:29 PM Dictation Location: [place] [address] Transcribed By: [facility] 05/29/24 1329 Dictated By: Nick Kurtz DO 05/29/24 1316 Signed By: 05/29/24 1329 [facility] DaytonNo Panel InformationOrdered By: Marcela Keller on 07-76-3002Ljccbfizu GFR (CKD-EPI)> 60.0 mL/MinKindred Hospital DaytonPharmacy Creatinine Clearance (Chem80.22[facility] Potassium [Moles/volume] in Serum or PlasmaOrdered By: Marcela Keller on 26-51-7607Sjuafpdfc [Moles/Vol]Potassium [Moles/volume] in Serum or Plasma 3.5-5.1FParkwood Hospitalerum or plasma anion gap determination Ordered By: Marcela Keller on 86-04-3700Vmniw gap [Moles/Vol]Serum or plasma anion gap determination6.0-15.0[facility] Community Hospitalodium [Moles/volume] in Serum or PlasmaOrdered By: Marcela Keller on 47-68-4027Gcpfcy [Moles/Vol]Sodium [Moles/volume] in Serum or Cqakvc229-291KmaadtccsKindred Hospital DaytonUrea nitrogen [Mass/volume] in Serum or PlasmaOrdered By: Marcela Keller on 99-34-6968Sicz nitrogen [Mass/Vol]Urea nitrogen [Mass/volume] in Serum or Plasma7-25[facility] DaytonBasophils Auto (Bld) [#/Vol] on 78-30-5035Gbgxygpad (Bld) [#/Vol]Automated basophil count0.0-0.1FEast Liverpool City HospitalBasophils/100 WBC Auto (Bld)on 83-60-1652Mkovtdaav/100 WBC (Bld)Automated basophil %0.2-2.0[facility] Eosinophils/100 WBC Auto (Bld)on 50-35-6951Glmqklaaiqa/100 WBC (Bld)Automated eosinophil %0.9-7.0[facility] DaytonErythrocyte distribution width Auto (RBC) [Ratio]on 29-28-0282Hvotzxzqymt distribution width (RBC) [Ratio]Erythrocyte distribution width [Ratio] by Automated count11.0-15.0 [facility] DaytonEstimated glomerular filtration rate (GFR) non- Americanon 08-76-4381LNS/1.73 sq M.predicted among non-blacks MDRD (S/P/Bld) [Vol rate/Area]Estimated glomerular filtration rate (GFR) non->=60 mL/min/1.73m 2FEast Liverpool City HospitalGlobulin Calc (S) [Mass/Vol]on 24-73-9257Diekcedx (S) [Mass/Vol]Serum globulin measurement by calculation (mass/volume)[facility] DaytonHematocrit Auto (Bld) [Volume fraction]on 26-46-1146Qdqgcdyoet (Bld) [Volume fraction]Hematocrit [Volume Fraction] of Blood by Automated mpehuYaf36.0-54.0[facility] DaytonHemoglobin [Mass/volume] in Bloodon 57-73-6508Bhsfushftv (Bld) [Mass/Vol]Hemoglobin [Mass/volume] in JklghCfl07.0-18.0[facility] DaytonINR in Platelet poor plasma by Coagulation assayon 05-37-1577LRQ Coag (PPP) [Relative time]INR in Platelet poor plasma by Coagulation assay [facility] DaytonComment on above:DESIRED INR:2.0-3.0 CONDITIONS NOT LISTED BELOW2.5-3.5 FOR PROSTHETIC HEART VALVE REPLACEMENT2.5-3.5 RECURRENT THROMBOSISLaboratory - Chemistry and Chemistry - challengeon 47-68-8959Nrzkyme [Mass/Vol]3.6 g/dL3.4-5.0[facility] DaytonALP [Catalytic activity/Vol]73 U/O14-779XrboubgvuKindred Hospital DaytonALT [Catalytic activity/Vol]19 U/D16-03TwahcsdswKindred Hospital DaytonAST [Catalytic activity/Vol]23 U/H13-26XltjesxorKindred Hospital DaytonBilirubin [Mass/Vol]0.6 mg/dL0.2-1.0[facility] DaytonCalcium [Mass/Vol]9.1 mg/dL 8.5-10.1FEast Liverpool City HospitalChloride [Moles/Vol]103 mmol/L98-107 [facility] DaytonCO2 [Moles/Vol]29.4 mmol/L21.0-32.0[facility] DaytonCreatinine [Mass/Vol]1.03 mg/dL0.70-1.30[facility] DaytonGFR/1.73 sq M.predicted MDRD (S/P/Bld) [Vol rate/Area] mL/min/{1.73_m2}>=60 mL/min/1.73m 2FEast Liverpool City HospitalGlucose [Mass/Vol]130 mg/pMAmbt64-895MhzaqukypKindred Hospital DaytonLactate [Moles/Vol]2.0 mmol/L0.4-2.0[facility] DaytonMagnesium [Mass/Vol]1.7 mg/dLLow1.8-2.4FEast Liverpool City HospitalPotassium [Moles/Vol]4.2 mmol/L3.5-5.1FEast Liverpool City HospitalProtein [Mass/Vol] 7.3 g/dL6.4-8.2FParkwood Hospitalodium [Moles/Vol]138 mmol/L 136-145[facility] DaytonTSH Qn1.105 m[IU]/L0.358-3.740[facility] DaytonUrea nitrogen [Mass/Vol]16.0 mg/dL7.0-18.0[facility] DaytonUrea nitrogen/Creatinine [Mass ratio]15.5 mg/mgKindred Hospital DaytonLaboratory - Hematology and Cell countson 05-28-2024 Immature granulocytes/100 WBC (Bld)0.4 %0.0-0.5FEast [facility] Hospital Leukocytes [#/volume] corrected for nucleated erythrocytes in Blood by Automated counon 69-13-7269SNL corrected for nucl RBC Auto (Bld) [#/Vol]Leukocytes [#/volume] corrected for nucleated erythrocytes in Blood by Automated coun 4.0-11.0[facility] DaytonLymphocytes Auto (Bld) [#/Vol]on 80-20-1927Vqyfmlfhiat (Bld) [#/Vol]Lymphocytes [#/volume] in Blood by Automated count1.2-3.8[facility] DaytonLymphocytes/100 WBC Auto (Bld)on 73-25-4854Vqwjbdqkutz/100 WBC (Bld)Lymphocytes/100 leukocytes in Blood by Automated count20.5-60.0[facility] DaytonMCH Auto (RBC) [Entitic mass]on 99-55-6636RSB (RBC) [Entitic mass]MCH [Entitic mass] by Automated count 25.9-34.0[facility] DaytonMCHC Auto (RBC) [Mass/Vol]on 90-08-7957ELAB (RBC) [Mass/Vol]MCHC [Mass/volume] by Automated count29.9-35.2 [facility] DaytonMCV Auto (RBC) [Entitic vol]on 43-15-4705FYS (RBC) [Entitic vol]MCV [Entitic volume] by Automated count80.0-94.0[facility] DaytonMonocytes Auto (Bld) [#/Vol]on 05-71-3929Qrgwjvnch (Bld) [#/Vol]Automated blood monocyte count0.3-0.8[facility] Monocytes/100 WBC Auto (Bld)on 66-13-4422Gewwggmqw/100 WBC (Bld)Automated monocyte %1.7-12.0[facility] DaytonNeutrophils Auto (Bld) [#/Vol]on 44-31-1384Whtvrjtsjui (Bld) [#/Vol]Neutrophils [#/volume] in Blood by Automated count1.4-6.5FEast Liverpool City HospitalNeutrophils/100 WBC Auto (Bld)on 85-39-0512Wqmjsnahnqw/100 WBC (Bld)Automated neutrophil %43.0-75.0 [facility] DaytonNo Panel Informationon 68-73-8058Dbdszsyrmqf # (Auto)0.1 10 3/uL0.0-0.7FEast Liverpool City HospitalEthyl Alcohol Level<3 mg/dLKindred Hospital DaytonComment on above:NOTE: 80 mg/dl is the legal limit for a blood alcohol levelImmature Granulocyte # (Auto)0.04 10 3/uL High0.00-0.03[facility] DaytonTroponin I High Sensitivity5.5 pg/mL4.0-76.1FEast Liverpool City HospitalComment on above:CUT-OFF POINTS HAVE BEEN ESTABLISHED BASED ON THE FOURTHUNIVERSAL DEFINITION OF MYOCARDIAL INFARCTION. THE UPPERREFERENCE LIMIT (URL) OF TROPONIN, DEFINED THE 99THPERCENTILE OF cTnI DISTRIBUTION IN A REFERENCE POPULATION,HAS BEEN CONFIRMED THE DECISION THRESHOLD FOR MIDIAGNOSIS.99TH PERCENTILE = 76.2 PG/MLNOTE: HIGH-SENSITIVITY TROPONIN ASSAY IS NOT INTENDED TO BEUSED IN ISOLATION BUT SHOULD BE INTERPRETED IN CONJUNCTIONWITH OTHER DIAGNOSTIC AND CLINICAL INFORMATION.Venous Blood Partial Pressure CO249.5 mm[Hg]40.0-52.0[facility] DaytonVenous Blood pH7.3657.330-7.430[facility] DaytonPlatelet mean volume Auto (Bld) [Entitic vol]on 40-53-0357Vrtrypok mean volume (Bld) [Entitic vol]Platelet mean volume [Entitic volume] in Blood by Automated countLow9.5-13.5FEast Liverpool City HospitalPlatelets Auto (Bld) [#/Vol]on 35-57-1855Szmlbrrot (Bld) [#/Vol]Platelets [#/volume] in Blood by Automated nquyz528-819PjhpvisdiKindred Hospital DaytonProthrombin time (PT)on 50-93-9345DH Coag (PPP) [Time]Prothrombin time (PT)9.0-11.6FEast Liverpool City HospitalRBC Auto (Bld) [#/Vol]on 32-01-3167UQI (Bld) [#/Vol]Erythrocytes [#/volume] in Blood by Automated countLow4.70-6.10[facility] Hospitalerum or plasma albumin/globulin mass ratioon 46-14-7813Qsytxuw/Globulin [Mass ratio]Serum or plasma albumin/globulin mass ratioAultman Alliance Community Hospitalerum or plasma anion gap determinationon 66-40-7162Jhzoe gap [Moles/Vol]Serum or plasma anion gap determinationKindred Hospital DaytonBasophils Auto (Bld) [#/Vol]on 88-61-1251Iwziqsdut (Bld) [#/Vol]Automated basophil count0.0-0.1FEast Liverpool City HospitalBasophils/100 WBC Auto (Bld)on 16-69-2031Uyjcvmxzj/100 WBC (Bld)Automated basophil %0.2-2.0[facility] DaytonCholesterol in LDL Calc [Mass/Vol]on 04-09-2024 Cholesterol in LDL [Mass/Vol]Cholesterol in LDL [Mass/volume] in Serum or Plasma by calculationKindred Hospital DaytonComment on above:<100 mg/dl KPIAMWW353-279 mg/dl NEAR OR ABOVE ROPSVHO218-992 mg/dl BORDERLINE UVJF159-682 mg/dl HIGH>190 mg/dl VERY HIGHCholesterol in VLDL Calc [Mass/Vol]on 04-09-2024 Cholesterol in VLDL [Mass/Vol]Cholesterol in VLDL [Mass/volume] in Serum or Plasma by calculationKindred Hospital DaytonEosinophils/100 WBC Auto (Bld)on 22-86-2622Aitcvrxyrug/100 WBC (Bld)Automated eosinophil %0.9-7.0 [facility] DaytonErythrocyte distribution width Auto (RBC) [Ratio]on 70-91-5298Xvafazkzkub distribution width (RBC) [Ratio]Erythrocyte distribution width [Ratio] by Automated count11.0-15.0[facility] DaytonEstimated glomerular filtration rate (GFR) non- Americanon 13-08-1229MQE/1.73 sq M.predicted among non-blacks MDRD (S/P/Bld) [Vol rate/Area]Estimated glomerular filtration rate (GFR) non->=60 mL/min/1.73m 2FEast Liverpool City HospitalGlobulin Calc (S) [Mass/Vol]on 18-24-7964Vnmfxgir (S) [Mass/Vol]Serum globulin measurement by calculation (mass/volume)[facility] DaytonGlucose mean value [Mass/volume] in Blood Estimated from glycated hemoglobinon 03-76-5031Tqsmnaj glucose Estimated from glycated hemoglobin (Bld) [Mass/Vol]Glucose mean value [Mass/volume] in Blood Estimated from glycated hemoglobinKindred Hospital DaytonHematocrit Auto (Bld) [Volume fraction]on 17-47-9965Ezxtoaeqct (Bld) [Volume fraction]Hematocrit [Volume Fraction] of Blood by Automated count Low42.0-54.0[facility] DaytonHemoglobin [Mass/volume] in Bloodon 39-54-8880Elqbyahptu (Bld) [Mass/Vol]Hemoglobin [Mass/volume] in BloodLow 14.0-18.0[facility] DaytonLaboratory - Chemistry and Chemistry - challengeon 56-24-4103Vegmmds [Mass/Vol]3.8 g/dL3.4-5.0[facility] DaytonALP [Catalytic activity/Vol]63 U/M73-234BhiovicohKindred Hospital DaytonALT [Catalytic activity/Vol]14 U/GKzb83-16NxudkbaxhKindred Hospital DaytonAST [Catalytic activity/Vol]18 U/N31-28PqbryytusKindred Hospital Dayton Bilirubin [Mass/Vol]0.5 mg/dL0.2-1.0[facility] DaytonCalcium [Mass/Vol]9.3 mg/dL8.5-10.1FEast Liverpool City HospitalChloride [Moles/Vol] 107 mmol/N98-231QglpourhtKindred Hospital DaytonCholesterol [Mass/Vol]155 mg/dL <=200[facility] DaytonCholesterol in HDL [Mass/Vol]59 mg/dL40-60 [facility] DaytonComment on above:> or =60 mg/dl - LOW CARDIOVASCULAR RISK<40 mg/dl - HIGH CARDIOVASCULAR RISKCO2 [Moles/Vol]31.4 mmol/L21.0-32.0[facility] DaytonCobalamin (Vitamin B12) [Mass/Vol]991 pg/rN193-5201HucgcdwbkKindred Hospital DaytonComment on above: Performed at: [facility] [id number] Director: Joel Gallego PhD, Phone: [phone] [Mass/Vol]0.77 mg/dL0.70-1.30[facility] DaytonGFR/1.73 sq M.predicted MDRD (S/P/Bld) [Vol rate/Area]mL/min/{1.73_m2}>=60 mL/min/1.73m 2FEast Liverpool City HospitalGlucose [Mass/Vol]96 mg/qZ82-576CemuxnaxsKindred Hospital Dayton Potassium [Moles/Vol]4.8 mmol/L3.5-5.1FEast Liverpool City HospitalProtein [Mass/Vol]7.1 g/dL6.4-8.2FParkwood Hospitalodium [Moles/Vol]144 mmol/K047-152WflzmkcbkKindred Hospital DaytonTriglyceride [Mass/Vol]56 mg/dL <=150[facility] DaytonUrea nitrogen [Mass/Vol]17.0 mg/dL7.0-18.0 [facility] DaytonUrea nitrogen/Creatinine [Mass ratio]22.1 mg/mg [facility] DaytonLaboratory - Hematology and Cell countson 37-69-0942JtP9t (Bld) [Mass fraction]5.7 %4.5-6.2FEast Liverpool City HospitalComment on above:ADA RECOMMENDED LIMIT 4.0 - 6.0ADA THERAPEUTIC TARGET < 7.0ACTION SUGGESTED> 7.0Immature granulocytes/100 WBC (Bld)0.3 %0.0-0.5FEast Liverpool City HospitalLeukocytes [#/volume] corrected for nucleated erythrocytes in Blood by Automated counon 84-89-2915WAU corrected for nucl RBC Auto (Bld) [#/Vol]Leukocytes [#/volume] corrected for nucleated erythrocytes in Blood by Automated coun4.0-11.0[facility] DaytonLymphocytes Auto (Bld) [#/Vol]on 85-99-4605Reyhumytznb (Bld) [#/Vol]Lymphocytes [#/volume] in Blood by Automated count1.2-3.8[facility] DaytonLymphocytes/100 WBC Auto (Bld)on 00-93-4565Jgppaujsimm/100 WBC (Bld)Lymphocytes/100 leukocytes in Blood by Automated count20.5-60.0[facility] HospitalH Auto (RBC) [Entitic mass]on 03-61-4913HZE (RBC) [Entitic mass]MCH [Entitic mass] by Automated count25.9-34.0[facility] DaytonMCHC Auto (RBC) [Mass/Vol]on 82-62-1727EBTL (RBC) [Mass/Vol]MCHC [Mass/volume] by Automated count29.9-35.2FEast Liverpool City HospitalMCV Auto (RBC) [Entitic vol]on 94-65-0507BGD (RBC) [Entitic vol]MCV [Entitic volume] by Automated countHigh 80.0-94.0[facility] DaytonMonocytes Auto (Bld) [#/Vol]on 10-49-3714Glwpmfpqc (Bld) [#/Vol]Automated blood monocyte count0.3-0.8[facility] DaytonMonocytes/100 WBC Auto (Bld)on 75-59-0997Rkyjljawo/100 WBC (Bld)Automated monocyte %1.7-12.0[facility] Neutrophils Auto (Bld) [#/Vol]on 16-03-8973Vlxiwtfoypp (Bld) [#/Vol]Neutrophils [#/volume] in Blood by Automated count1.4-6.5FEast [facility] Neutrophils/100 WBC Auto (Bld)on 72-44-0371Jdlreimfuas/100 WBC (Bld)Automated neutrophil %43.0-75.0[facility] DaytonNo Panel Informationon 96-11-0673Vowvwhvirsc # (Auto)0.1 10 3/uL0.0-0.7FEast Liverpool City HospitalFolate9.40 ng/mL8.60-58.90[facility] DaytonImmature Granulocyte # (Auto)0.02 10 3/uL0.00-0.03[facility] Platelet mean volume Auto (Bld) [Entitic vol]on 84-18-5797Yszrpdqq mean volume (Bld) [Entitic vol]Platelet mean volume [Entitic volume] in Blood by Automated countLow9.5-13.5FEast Liverpool City HospitalPlatelets Auto (Bld) [#/Vol]on 09-44-3909Iexekpbyt (Bld) [#/Vol]Platelets [#/volume] in Blood by Automated -890ApersduvsKindred Hospital DaytonRBC Auto (Bld) [#/Vol]on 04-09-2024 RBC (Bld) [#/Vol]Erythrocytes [#/volume] in Blood by Automated countLow4.70-6.10 [facility] Hospitalerum or plasma albumin/globulin mass ratioon 36-41-8342Ohpuhkm/Globulin [Mass ratio]Serum or plasma albumin/globulin mass ratioAultman Alliance Community Hospitalerum or plasma anion gap determinationon 91-05-9483Cuytw gap [Moles/Vol]Serum or plasma anion gap determinationAultman Alliance Community Hospitalerum or plasma total cholesterol/high density lipoprotein (HDL) cholesterol mass melly 22-45-5706Zplsybsorlq.total/Cholesterol in HDL [Mass ratio]Serum or plasma total cholesterol/high density lipoprotein (HDL) cholesterol mass [facility] HealthComment on above:3.3 - 4.4 LOW RISK4.4 - 7.1 AVERAGE RISK7.1 - 11.0 MODERATE RISK>11.0 HIGH RISK Reminderson 49-86-3549DjlgpqeucHlfelmggx From: mAy Linn To: EU - Administrative; Sent: 02/13/2024 12:16:44 EST Show up: 05/08/2025 12:16:00 EST Subject: Need 2 yr recheck /Jan 2026 Due Date/Time: 02/18/2026 12:16:00 EST Reminder/Recall Patient will need a 2 yr recheck with PSA with either PRW or REMBERTO.[facility] CenterUrology Office/Clinic Noteon 49-01-4664Dxpnpcf Office/Clinic NoteUrology Office/Clinic Note Chief Complaint elevated PSA, BPH [...] INFANTE, TL Mackey, URL In 2 years [address] [place] [address] Additional Instructions: Patient Education Benign [...] cryoablation of prostate (08/07/2010), Cystoscopy (03/30/2010), Arthroscopy, lowerback surgery, neck surgery, Right hand third finger [...] ago Tobacco Use:. Cigarettes, Household tobacco concerns: No.Yes, 02/05/2024 Family History Cancer: Father. Ca (more content not included)...[facility] CenterComment on above:Result Comment: Electronically Signed By: TL CARMONA PA-C\.br\Date and Time Signed: 02/08/2415:03 ESTNo Panel Informationon 24-92-1502Yxej Prostate Specific Antigen0.09 ng/mLN/[facility] HospitalComment on above: [employer] ECLIA methodology.Prostate Specific Antigen Total0.4 ng/mL0.0-4.0[facility] DaytonComment on above:[employer] ECLIA methodology.According to the [place] [employer], Serum PSAshould decrease and remain at undetectable levels afterradical prostatectomy. The AUA defines biochemicalrecurrence as an initial PSA value 0.2 ng/mL or greaterfollowed by a subsequent confirmatory PSA value 0.2 ng/mLor greater. Values obtained with different assay methods orkits cannot be used interchangeably. Results cannot beinterpreted as absolute evidence of the presence or absenceof malignant disease.Serum or plasma free prostate specific antigen (PSA)/total PSA ratioon 83-58-7807Hxmc PSA/Total PSA [Mass fraction]Serum or plasma free prostate specific antigen (PSA)/total PSA ratio.[facility] DaytonComment on above:The table below lists the probability of prostate cancer formen with non-suspicious MARCIA results andtotal PSA between4 and 10 ng/mL, by patient age (Manjeet et al, LINA 1998,279:1542). % Free PSA 50-64 yr 65-75 yr 0.00-10.00% 56% 55% 10.01-15.00% 24% 35% 15.01-20.00% 17% 23% 20.01-25.00% 10% 20% &g t;25.00% 5% 9%Please note: Manjeet et al did not make specific recommendations regarding the use of percent free PSA for any other population of men.Performed at: [facility] [id number] Director: Joel Gallego PhD, Phone: [phone] [Mass/volume] in Bloodon 33-98-9812Xcmtkbtsvm (Bld) [Mass/Vol]13.5 g/dLLow14.0-18.0[facility] DaytonBasophils Auto (Bld) [#/Vol]on 16-91-4369Pfcnuprxw (Bld) [#/Vol] 0.0 10 3/uL0.0-0.1FEast Liverpool City HospitalBasophils/100 WBC Auto (Bld) on 67-98-5566Zttjgezve/100 WBC (Bld)0.4 %0.2-2.0[facility] DaytonCholesterol in LDL Calc [Mass/Vol]on 74-56-0904Iwidlyrlmzr in LDL [Mass/Vol]111.0 mg/dLKindred Hospital DaytonComment on above:<100 mg/dl SNVARMJ882-473 mg/dl NEAR OR ABOVE LQGKOVM080-507 mg/dl BORDERLINE MQXW364-934 mg/dl HIGH>190 mg/dl VERY HIGHCholesterol in VLDL Calc [Mass/Vol]on 46-08-0939Meqownqjxzh in VLDL [Mass/Vol]18.8 mg/dLKindred Hospital DaytonEosinophils/100 WBC Auto (Bld)on 18-70-3333Rbmrdzbdmmr/100 WBC (Bld)1.1 % 0.9-7.0[facility] DaytonErythrocyte distribution width Auto (RBC) [Ratio]on 25-42-2020Whysoccwhfn distribution width (RBC) [Ratio]13.1 % 11.0-15.0[facility] DaytonEstimated glomerular filtration rate (GFR) non- Americanon 65-96-4345SLQ/1.73 sq M.predicted among non-blacks MDRD (S/P/Bld) [Vol rate/Area]mL/min/{1.73_m2}>=60[facility] DaytonGlobulin Calc (S) [Mass/Vol]on 40-59-8198Yncpnydw (S) [Mass/Vol]3.7 g/dL [facility] DaytonGlucose mean value [Mass/volume] in Blood Estimated from glycated hemoglobinon 37-13-2718Smexxzu glucose Estimated from glycated hemoglobin (Bld) [Mass/Vol]108 mg/dLKindred Hospital Dayton Hematocrit Auto (Bld) [Volume fraction]on 71-75-9227Xhfbigxxvg (Bld) [Volume fraction]42.4 %42.0-54.0[facility] DaytonHemoglobin [Mass/volume] in Bloodon 56-32-7731Ykfjnwsxqh (Bld) [Mass/Vol]13.7 g/dLLow 14.0-18.0[facility] DaytonLaboratory - Chemistry and Chemistry - challengeon 05-24-2514Huxjqmk [Mass/Vol]3.6 g/dL3.4-5.0[facility] DaytonALP [Catalytic activity/Vol]63 U/F63-156RchvsqsluKindred Hospital DaytonALT [Catalytic activity/Vol]31 U/M22-33BoqurwzvpKindred Hospital Dayton AST [Catalytic activity/Vol]24 U/F39-62ZzosgztheKindred Hospital Dayton Bilirubin [Mass/Vol]0.7 mg/dL0.2-1.0[facility] DaytonCalcium [Mass/Vol]9.1 mg/dL8.5-10.1FEast Liverpool City HospitalChloride [Moles/Vol] 103 mmol/H90-708WkylhokqbKindred Hospital DaytonCholesterol [Mass/Vol]192 mg/dL <=200[facility] DaytonCholesterol in HDL [Mass/Vol]63 mg/dLHigh 40-60[facility] DaytonComment on above:> or =60 mg/dl - LOW CARDIOVASCULAR RISK<40 mg/dl - HIGH CARDIOVASCULAR RISKCO2 [Moles/Vol]28.9 mmol/L21.0-32.0[facility] DaytonCobalamin (Vitamin B12) [Mass/Vol]761.0 pg/mL193.0-986.0[facility] DaytonCreatinine [Mass/Vol]0.79 mg/dL0.70-1.30[facility] DaytonGFR/1.73 sq M.predicted MDRD (S/P/Bld) [Vol rate/Area]mL/min/{1.73_m2}>=60[facility] DaytonGlucose [Mass/Vol]104 mg/wL89-983SqijrpngaKindred Hospital Dayton Potassium [Moles/Vol]4.5 mmol/L3.5-5.1FEast Liverpool City HospitalProtein [Mass/Vol]7.3 g/dL6.4-8.2FParkwood Hospitalodium [Moles/Vol]138 mmol/L978-247PrsvfevfaKindred Hospital DaytonTriglyceride [Mass/Vol]94 mg/dL <=150[facility] DaytonTSH Qn1.603 m[IU]/L0.358-3.740[facility] DaytonUrea nitrogen [Mass/Vol]15.0 mg/dL7.0-18.0[facility] DaytonUrea nitrogen/Creatinine [Mass ratio]19.0 mg/mgKindred Hospital DaytonLaboratory - Hematology and Cell countson 73-03-0373GzE6a (Bld) [Mass fraction]5.4 %4.5-6.2FEast Liverpool City HospitalComment on above:ADA RECOMMENDED LIMIT 4.0 - 6.0ADA THERAPEUTIC TARGET < 7.0ACTION SUGGESTED> 7.0Immature granulocytes/100 WBC (Bld)0.3 %0.0-0.5FEast Liverpool City HospitalLeukocytes [#/volume] corrected for nucleated erythrocytes in Blood by Automated counon 88-41-8180RCV corrected for nucl RBC Auto (Bld) [#/Vol]7.9 10 3/uL4.0-11.0[facility] DaytonLymphocytes Auto (Bld) [#/Vol]on 11-70-0617Vzkdwsmnxtm (Bld) [#/Vol]2.1 10 3/uL1.2-3.8[facility] DaytonLymphocytes/100 WBC Auto (Bld)on 10-09-2023 Lymphocytes/100 WBC (Bld)25.9 %20.5-60.0[facility] HospitalH Auto (RBC) [Entitic mass]on 52-62-0702MNO (RBC) [Entitic mass]31.4 pg25.9-34.0 [facility] DaytonMCHC Auto (RBC) [Mass/Vol]on 45-57-1948IYFD (RBC) [Mass/Vol]32.3 g/dL29.9-35.2FEast Liverpool City HospitalMCV Auto (RBC) [Entitic vol]on 62-25-0480VOL (RBC) [Entitic vol]97.0 gHNhfm51.0-94.0 [facility] DaytonMonocytes Auto (Bld) [#/Vol]on 10-09-2023 Monocytes (Bld) [#/Vol]0.7 10 3/uL0.3-0.8[facility] Monocytes/100 WBC Auto (Bld)on 46-03-0624Qomakvkoy/100 WBC (Bld)9.1 %1.7-12.0 [facility] DaytonNeutrophils Auto (Bld) [#/Vol]on 10-09-2023 Neutrophils (Bld) [#/Vol]5.0 10 3/uL1.4-6.5FEast [facility] Neutrophils/100 WBC Auto (Bld)on 37-75-6359Gzgrnkbkvst/100 WBC (Bld)63.2 % 43.0-75.0[facility] DaytonNo Panel Informationon 10-09-2023 Eosinophils # (Auto)0.1 10 3/uL0.0-0.7FEast Liverpool City HospitalFolate 10.90 ng/mL8.60-58.90[facility] DaytonImmature Granulocyte # (Auto)0.02 10 3/uL0.00-0.03[facility] DaytonPlatelet mean volume Auto (Bld) [Entitic vol]on 47-94-0060Egqokngf mean volume (Bld) [Entitic vol] 9.1 fLLow9.5-13.5FEast Liverpool City HospitalPlatelets Auto (Bld) [#/Vol]on 26-96-7418Slputoxyd (Bld) [#/Vol]234 10 3/gJ273-982NzlgepctfKindred Hospital DaytonRBC Auto (Bld) [#/Vol]on 86-06-8732ZXC (Bld) [#/Vol]4.37 10 6/uLLow 4.70-6.10[facility] Hospitalerum or plasma albumin/globulin mass ratioon 09-68-4724Oicdusp/Globulin [Mass ratio]1.0 {ratio}[facility] Hospitalerum or plasma anion gap determinationon 38-40-2625Kogqv gap [Moles/Vol]10.6 mmol/LFParkwood Hospitalerum or plasma total cholesterol/high density lipoprotein (HDL) cholesterol mass melly 10-09-2023 Cholesterol.total/Cholesterol in HDL [Mass ratio]3.0 {ratio}[facility] DaytonComment on above:3.3 - 4.4 LOW RISK4.4 - 7.1 AVERAGE RISK7.1 - 11.0 MODERATE RISK>11.0 HIGH RISKCBC AUTO DIFFon 26-74-5807QXCD #0.0 103/ul Normal0.0-0.1The [facility] HospitalComment on above:Performed By: #### LIPID, CMP, TSH #### [facility] [address] [address] [address] Peewee Moralessophils/100 WBC (Bld)0.3 %Normal0.2-2.0[facility] Comment on above:Performed By: #### LIPID, CMP, TSH #### [facility] [address] [place], [place] [address] Dr[address] Peewee Cruz #0.1 103/ulNormal0.0-0.7The [facility] HospitalComment on above: Performed By: #### LIPID, CMP, TSH #### [facility] [address] [place] [address] Dr. Peewee Brayosinophils/100 WBC (Bld)1.3 %Normal0.9-7.0[facility] Comment on above:Performed By: #### LIPID, CMP, TSH #### [facility] [address] [place] [address] Dr. Peewee Brayrythrocyte distribution width (RBC) [Ratio]12.4 %Nhaccj04.0-15.0 [facility] HospitalComment on above:Performed By: #### LIPID, CMP, TSH #### [facility] [address] [place] [address] Dr. Peewee RussellHematocrit (Bld) [Volume fraction]43.2 %Flwbaw05.0-54.0[facility] HospitalComment on above:Performed By: #### LIPID, CMP, TSH #### [facility] [address] [place] [address] Dr. Peewee RussellHemoglobin (Bld) [Mass/Vol]14.3 g/gNCjhiyn67.0-18.0The [facility] HospitalComment on above:Performed By: #### LIPID, CMP, TSH #### [facility] [address] [place] [address] Dr. Peewee [place] #0.02 10e3/ulNormal0.00-0.03The [facility]ment on above:Performed By: #### LIPID, CMP, TSH #### [facility] [address] [place] [address] Dr. Peewee Livingston %0.3 %Normal0.0-0.5The [facility] HospitalComment on above: Performed By: #### LIPID, CMP, TSH #### [facility] [address] [place] [address] Dr. Peewee Lipscomb #2.4 103/ulNormal1.2-3.8The [facility] HospitalComment on above:Performed By: #### LIPID, CMP, TSH #### [facility] [address] [place] [address] Dr. Peewee Russellmphocytes/100 WBC (Bld)30.0 %Vsfscs99.5-60.0The [facility] HospitalComment on above:Performed By: #### LIPID, CMP, TSH #### [facility] [address] [address] [address] Peewee Rogers DIFF REQNONormalThe [facility] HospitalComment on above: Performed By: #### LIPID, CMP, TSH #### [facility] [address] [address] [address] Peewee Carrera (RBC) [Entitic mass]31.0 alQseyst26.9-34.0The [facility] HospitalComment on above:Performed By: #### LIPID, CMP, TSH #### [facility] [address] [place] [address] Dr. Peewee Carrera (RBC) [Mass/Vol]33.1 g/nSImqxmi41.9-35.2The [facility] HospitalComment on above:Performed By: #### LIPID, CMP, TSH #### [facility] [address] [address] [address] Peewee Carrera (RBC) [Entitic vol]93.7 aGRwtnqd28.0-94.0The [facility] HospitalComment on above:Performed By: #### LIPID, CMP, TSH #### [facility] [address] [place] [address] Dr. Peewee Jones #0.7 103/ulNormal0.3-0.8The [facility] County HospitalComment on above:Performed By: #### LIPID, CMP, TSH #### [facility] [address] [address] [address] Peewee Nguyneocytes/100 WBC (Bld)8.4 %Normal1.7-12.0The [facility] Comment on above:Performed By: #### LIPID, CMP, TSH #### [facility] [address] [place] [address] Dr. Peewee Ko #4.7 103/ulNormal1.4-6.5The [facility] on above:Performed By: #### LIPID, CMP, TSH #### [facility] [address] [address] [address] Peewee Bookerutrophils/100 WBC (Bld)59.7 %Gzfzcp19.0-75.0[facility] on above:Performed By: #### LIPID, CMP, TSH #### [facility] [address] [address] [address] Peewee RussellPlatelet mean volume (Bld) [Entitic vol]8.4 fLCritically low 9.5-13.5The [facility] HospitalComment on above:Performed By: #### LIPID, CMP, TSH #### [facility] [address] [address] [address] Peewee RussellPLT208 103/rgDcxvkn426-662Det [facility] on above: Performed By: #### LIPID, CMP, TSH #### [facility] [address] [place] [address] Dr. Peewee RussellRBC4.61 106/ulCritically low4.70-6.10The [facility] HospitalComveter[facility] on above:Performed By: #### LIPID, CMP, TSH #### [facility] [address] [place] [address] Dr. Peewee RussellWBC7.9 103/ulNormal4.0-11.0[facility] on above: Performed By: #### LIPID, CMP, TSH #### [facility] [address] [place] [address] Dr. Peewee RussellGLYCOHEMOGLOBIN A1Con [id number] RECOMMENDATIONSEE BELOWNormal The [facility] HospitalComveter[facility] on above:Result Comment: ADA RECOMMENDED LIMIT 4.0 - 6.0 ADA THERAPEUTIC TARGET < 7.0 ACTION SUGGESTED > 7.0Performed By: #### LIPID, CMP, TSH #### [facility] [address] [place] [address] Dr. Peewee RussellGlucose [Mass/Vol]108 mg/dLNormalThMercy Health St. Elizabeth Youngstown HospitalComment on above:Performed By: #### LIPID, CMP, TSH #### [facility] [address] [address] [address] Peewee RussellHbA1c (Bld) [Mass fraction]5.4 %Normal4.5-6.2The [facility] HospitalComment on above:Performed By: #### LIPID, CMP, TSH #### [facility] [address] [address] [address] Peewee MaldonadoID PROFILEon [id number]-HDL RATIO NORMSEE BELOWCincinnati VA Medical CenterComment on above:Result Comment: 3.3 - 4.4 LOW RISK 4.4 - 7.1 AVERAGE RISK 7.1 - 11.0 MODERATE RISK >11.0 HIGH RISKPerformed By: #### LIPID, CMP, TSH #### [facility] [address] [address] [address] Peewee RussellCholesterol [Mass/Vol]188 mg/dLNormal<=200The [facility] Comment on above:Performed By: #### LIPID, CMP, TSH #### [facility] [address] [address] [address] Peewee Alonsoesterol in HDL [Mass/Vol]65 mg/dLCritically olhc18-02Xsc [facility] on above:Performed By: #### LIPID, CMP, TSH #### [facility] [address] [address] [address] Peewee RussellCholesterol in LDL [Mass/Vol]107.6 mg/dLCincinnati VA Medical CenterComment on above:Performed By: #### LIPID, CMP, TSH #### [facility] [address] [address] [address] Peewee Alonsoesterfreda.total/Cholesterol in HDL [Mass ratio]2.9 {ratio} NormalThe [facility] on above:Performed By: #### LIPID, CMP, TSH #### [facility] [address] [address] [address] Peewee RussellHDL NORMAL> or = 60 mg/dl - LOW CARDIOVASCULAR RISK <40 mg/dl - HIGH CARDIOVASCULAR RISKNormalThe Desiree HospitalComment on above:Performed By: #### LIPID, CMP, TSH #### [facility] [address] [address] [address] Peewee Sapp CALC NORMALSEE BELOWCincinnati VA Medical CenterComment on above:Result Comment: <100 mg/dl OPTIMAL 100 - 129 mg/dl NEAR OR ABOVE OPTIMAL 130 - 159 mg/dl BORDERLINE HIGH 160 - 189 mg/dl HIGH >190 mg/dl VERY HIGH Performed By: #### LIPID, CMP, TSH #### [facility] [address] [address] [address] Peewee RussellTriglyceride [Mass/Vol]77 mg/dLNormal<=150The [facility] Comment on above:Performed By: #### LIPID, CMP, TSH #### [facility] [address] [address] [address] Peewee RussellVLDL CALC15.4 mg/dLNoToledo HospitalComment on above: Performed By: #### LIPID, CMP, TSH #### [facility] [address] [place] [address] Dr. Peewee RussellPROF 14(COMP METB)on [id number] [Mass/Vol]3.7 g/dLNormal 3.4-5.0The [facility] on above:Performed By: #### LIPID, CMP, TSH #### [facility] [address] [address] [address] Peewee RussellAlbumin/Globulin [Mass ratio]1.0 {ratio}NormalThe [facility] HospitalComveterans affairs [facility] on above:Performed By: #### LIPID, CMP, TSH #### [facility] [address] [address] [address] Peewee Boone [Catalytic activity/Vol]68 U/KMleqnc97-001Uro [facility] on above:Performed By: #### LIPID, CMP, TSH #### [facility] [address] [address] [address] Peewee Haynes [Catalytic activity/Vol]19 U/VMkzwob52-08Vey [facility]iree HospitalComment on above:Performed By: #### LIPID, CMP, TSH #### [facility] [address] [address] [address] Peewee Marinon gap [Moles/Vol]8.3 mmol/LNormalThe [facility] HospitalComment on above:Performed By: #### LIPID, CMP, TSH #### [facility] [address] [place] [address] Dr. Peewee RussellAST [Catalytic activity/Vol]20 U/WLkuiph89-71Uuh [facility] HospitalComment on above:Performed By: #### LIPID, CMP, TSH #### [facility] [address] [place] [address] Dr. Peewee RussellBilirubin [Mass/Vol]0.5 mg/dLNormal0.2-1.0The [facility] Comment on above:Performed By: #### LIPID, CMP, TSH #### [facility] [address] [place] [address] Dr. Peewee RussellCalcium [Mass/Vol]9.1 mg/dLNormal8.5-10.1The [facility] Comment on above:Performed By: #### LIPID, CMP, TSH #### [facility] [address] [place] [address] Dr. Peewee RussellChloride [Moles/Vol]103 mmol/IMuxlau90-167Ejj [facility] Comment on above:Performed By: #### LIPID, CMP, TSH #### [facility] [address] [place] [address] Dr. Peewee RussellCO2 [Moles/Vol]32.9 mmol/LCritically high21.0-32.0The [facility] HospitalComment on above:Performed By: #### LIPID, CMP, TSH #### [facility] [address] [place] [address] Dr. Peewee RussellCreatinine [Mass/Vol]0.75 mg/dLNormal0.70-1.30The [facility] HospitalComment on above:Performed By: #### LIPID, CMP, TSH #### [facility] [address] [place] [address] Dr. Yilan ChangEGFR-AF TURKS AND CAICOS ISLANDER>60Normal>=60The [facility] HospitalComment on above:Performed By: #### LIPID, CMP, TSH #### [facility] [address] [place] [address] Dr. Peewee BrayGFR-NON AF TURKS AND CAICOS ISLANDER>60Normal>=60The [facility] HospitalComment on above:Performed By: #### LIPID, CMP, TSH #### [facility] [address] [place] [address] Dr. Peewee RussellGlobulin (S) [Mass/Vol]3.6 g/dLNormalThe [facility] HospitalComment on above:Performed By: #### LIPID, CMP, TSH #### [facility] [address] [place] [address] Dr. Peewee RussellGlucose [Mass/Vol]114 mg/dLCritically zwei18-446Rlj [facility] HospitalComment on above:Performed By: #### LIPID, CMP, TSH #### [facility] [address] [place] [address] Dr. Peewee RussellPotassium [Moles/Vol]4.2 mmol/LNormal3.5-5.1The [facility] Comment on above:Performed By: #### LIPID, CMP, TSH #### [facility] [address] [place] [address] Dr. Peewee RussellProtein [Mass/Vol]7.3 g/dLNormal6.4-8.2[facility] Comment on above:Performed By: #### LIPID, CMP, TSH #### [facility] [address] [place] [address] Dr. Peewee RussellSodium [Moles/Vol]140 mmol/BAnqqmc844-584Gzz [facility] Comment on above:Performed By: #### LIPID, CMP, TSH #### [facility] [address] [place] [address] Dr. Peewee RussellUrea nitrogen [Mass/Vol]16.0 mg/dLNormal7.0-18.0The [facility] HospitalComment on above:Performed By: #### LIPID, CMP, TSH #### [facility] [address] [place] [address] Dr. Peewee Whitney nitrogen/Creatinine [Mass ratio]21.3 mg/mgNormalThe [facility] HospitalComment on above:Performed By: #### LIPID, CMP, TSH #### [facility] [address] [place] [address] Dr. Peewee SánchezHogio 37-96-3693ZEO2.754 uIU/mLNormal0.358-3.740The [facility] HospitalComment on above:Performed By: #### LIPID, CMP, TSH #### [facility] [address] [place] [address] Dr. Peewee Alaniz B12 AND FOLATEon 20-49-8896Wkpbuwxrl (Vitamin B12) [Mass/Vol] 1002.0 pg/mLCritically unsi138.0-986.0The [facility] HospitalComment on above: Performed By: #### LIPID, CMP, TSH #### [facility] [address] [place] [address] Dr. Peewee RussellFOLATE16.00 ng/mLNormal8.60-58.90The [facility] HospitalComment on above:Performed By: #### LIPID, CMP, TSH #### [facility] [address] [place] [address] Dr. Peewee RussellFOLATE ([facility])on [id number] ng/mLNormal>3.0The [facility] on above:Result Comment: A serum folate concentration of less than 3.1 ng/mL is considered to represent clinical deficiency.Performed By: #### LIPID, CMP, TSH #### [facility] [address] [place] [address] Dr. Peewee RussellCBC AUTO DIFFon [id number] #0.0 103/ulNormal0.0-0.1The [facility] HospitalComveterans affairs [facility] on above:Performed By: #### CBC #### [facility] [address] [place] [address] Dr. Peewee RussellBasophils/100 WBC (Bld)0.5 %Normal0.2-2.0The [facility] Comment on above:Performed By: #### CBC #### [facility] [address] [place] [address] Dr. Peewee Cruz #0.1 103/ulNormal0.0-0.7The [facility] HospitalComment on above: Performed By: #### CBC #### [facility] [address] [place] [address] Dr. Peewee Brayosinophils/100 WBC (Bld)1.3 %Normal0.9-7.0The [facility] Comment on above:Performed By: #### CBC #### [facility] [address] [place] [address] Dr. Peewee Brayrythrocyte distribution width (RBC) [Ratio]13.3 %Ufnxrw44.0-15.0 The [facility] HospitalComment on above:Performed By: #### CBC #### [facility] [address] [place] [address] Dr. Peewee RussellHematocrit (Bld) [Volume fraction]42.1 %Opbqtn41.0-54.0The [facility] HospitalComment on above:Performed By: #### CBC #### [facility] [address] [place] [address] Dr. Peewee RussellHemoglobin (Bld) [Mass/Vol]13.9 g/dLCritically low14.0-18.0The [facility] HospitalComment on above:Performed By: #### CBC #### [facility] [address] [place] [address] Dr. Peewee Livingston #0.03 10e3/ulNormal0.00-0.03The [facility] HospitalComment on above:Performed By: #### CBC #### [facility] [address] [place] [address] Dr. Peewee Livingston %0.4 %Normal0.0-0.5The [facility] HospitalComment on above: Performed By: #### CBC #### [facility] [address] [place] [address] Dr. Peewee Lipscomb #1.9 103/ulNormal1.2-3.8The [facility] HospitalComment on above:Performed By: #### CBC #### [facility] [address] [place] [address] Dr. Peewee Russellmphocytes/100 WBC (Bld)23.0 %Kjayxr38.5-60.0The [facility] HospitalComment on above:Performed By: #### CBC #### [facility] [address] [place] [address] Dr. Peewee Rogers DIFF REQNONormalThe [facility] HospitalComment on above: Performed By: #### CBC #### [facility] [address] [place] [address] Dr. Peewee Carrera (RBC) [Entitic mass]32.1 lhChtimp14.9-34.0The [facility] HospitalComment on above:Performed By: #### CBC #### [facility] [address] [place] [address] Dr. Peewee Carrera (RBC) [Mass/Vol]33.0 g/fLRpctsl05.9-35.2The [facility] HospitalComment on above:Performed By: #### CBC #### [facility] [address] [place] [address] Dr. Peewee Galloway (RBC) [Entitic vol]97.2 fLCritically high80.0-94.0The [facility] HospitalComment on above:Performed By: #### CBC #### [facility] [address] [place] [address] Dr. Peewee Jones #0.6 103/ulNormal0.3-0.8The [facility] HospitalComment on above:Performed By: #### CBC #### [facility] [address] [place] [address] Dr. Peewee Nguyenocytes/100 WBC (Bld)7.2 %Normal1.7-12.0The [facility] Comment on above:Performed By: #### CBC #### [facility] [address] [place] [address] Dr. Yilan ChangNEUT #5.7 103/ulNormal1.4-6.5The [facility] HospitalComment on above:Performed By: #### CBC #### [facility] [address] [place] [address] Dr. Peewee Bookerutrophils/100 WBC (Bld)67.6 %Lrdyec62.0-75.0[facility] CenterComment on above:Performed By: #### CBC #### [facility] [address] [place] [address] Dr. Peewee RussellPlatelet mean volume (Bld) [Entitic vol]8.9 fLCritically low 9.5-13.5The [facility] HospitalComment on above:Performed By: #### CBC #### [facility] [address] [place] [address] Dr. Peewee RussellPLT239 103/ohPnbler182-981Otj [facility] HospitalComment on above: Performed By: #### CBC #### [facility] [address] [place] [address] Dr. Peewee RussellRBC4.33 106/ulCritically low4.70-6.10The [facility] HospitalComment on above:Performed By: #### CBC #### [facility] [address] [place] [address] Dr. Peewee RussellWBC8.4 103/ulNormal4.0-11.0[facility] CenterComment on above: Performed By: #### CBC #### [facility] [address] [place] [address] Dr. Peewee RussellGLYCOHEMOGLOBIN A1Con 44-88-0859LCO RECOMMENDATIONSEE BELOWNormal The [facility] HospitalComment on above:Result Comment: ADA RECOMMENDED LIMIT 4.0 - 6.0 ADA THERAPEUTIC TARGET < 7.0 ACTION SUGGESTED > 7.0Performed By: #### A1C #### [facility] [address] [place] [address] Dr. Peewee RussellGlucose [Mass/Vol]108 mg/dLNormalThMercy Health St. Elizabeth Young[facility] HospitalComment on above:Performed By: #### A1C #### [facility] [address] [address] [address] Peewee RussellHbA1c (Bld) [Mass fraction]5.4 %Normal4.5-6.2The [facility] HospitalComment on above:Performed By: #### A1C #### [facility] [address] [place] [address] Dr. Peewee MaldonadoID PROFILEon 21-99-8511AYMC-HDL RATIO NORMSEE BELOWCincinnati VA Medical CenterComment on above:Result Comment: 3.3 - 4.4 LOW RISK 4.4 - 7.1 AVERAGE RISK 7.1 - 11.0 MODERATE RISK >11.0 HIGH RISKPerformed By: #### TSH, LIPID, CMP #### [facility] [address] [place] [address] Dr. Peewee Alonsoesterol [Mass/Vol]169 mg/dLNormal<=200The [facility] Comment on above:Performed By: #### TSH, LIPID, CMP #### [facility] [address] [place] [address] Dr. Peewee Alonsoesterol in HDL [Mass/Vol]70 mg/dLCritically myjz80-16Aaq [facility] HospitalComment on above:Performed By: #### TSH, LIPID, CMP #### [facility] [address] [place] [address] Dr. Peewee Alonsoesterol in LDL [Mass/Vol]90.4 mg/dLCincinnati VA Medical CenterComment on above:Performed By: #### TSH, LIPID, CMP #### [facility] [address] [place] [address] Dr. Peewee Mota.total/Cholesterol in HDL [Mass ratio]2.4 {ratio} NormalThe [facility] HospitalComment on above:Performed By: #### TSH, LIPID, CMP #### [facility] [address] [place] [address] Dr. Peewee GraciaL NORMAL> or = 60 mg/dl - LOW CARDIOVASCULAR RISK <40 mg/dl - HIGH CARDIOVASCULAR RISKCincinnati VA Medical CenterComment on above:Performed By: #### TSH, LIPID, CMP #### [facility] [address] [place] [address] Dr. Peewee Sapp CALC NORMALSEE BELOWCincinnati VA Medical CenterComment on above:Result Comment: <100 mg/dl OPTIMAL 100 - 129 mg/dl NEAR OR ABOVE OPTIMAL 130 - 159 mg/dl BORDERLINE HIGH 160 - 189 mg/dl HIGH >190 mg/dl VERY HIGH Performed By: #### TSH, LIPID, CMP #### [facility] [address] [place] [address] Dr. Peewee RussellTriglyceride [Mass/Vol]43 mg/dLNormal<=150The [facility] Comment on above:Performed By: #### TSH, LIPID, CMP #### [facility] [address] [place] [address] Dr. Peewee RussellVLDL CALC8.6 mg/dLNoToledo HospitalComment on above: Performed By: #### TSH, LIPID, CMP #### [facility] [address] [place] [address] Dr. Peewee RussellPROF 14(COMP METB)on 48-07-2092Tcvrwxc [Mass/Vol]3.7 g/dLNormal 3.4-5.0The [facility] HospitalComment on above:Performed By: #### TSH, LIPID, CMP #### [facility] [address] [place] [address] Dr. Peewee RussellAlbumin/Globulin [Mass ratio]1.0 {ratio}NormalThe [facility] HospitalComment on above:Performed By: #### TSH, LIPID, CMP #### [facility] [address] [place] [address] Dr. Peewee Boone [Catalytic activity/Vol]65 U/ROomcng29-207Stm [facility] HospitalComment on above:Performed By: #### TSH, LIPID, CMP #### [facility] [address] [place] [address] Dr. Peewee Haynes [Catalytic activity/Vol]29 U/XTuuytb34-85Zob [facility] HospitalComment on above:Performed By: #### TSH, LIPID, CMP #### [facility] [address] [address] [address] Peewee Martel gap [Moles/Vol]9.6 mmol/LNormalThe [facility] HospitalComment on above:Performed By: #### TSH, LIPID, CMP #### [facility] [address] [address] [address] Peewee RussellAST [Catalytic activity/Vol]21 U/XOhaaio29-18Wdk [facility] HospitalComment on above:Performed By: #### TSH, LIPID, CMP #### [facility] [address] [place] [address] Dr. Peewee RussellBilirubin [Mass/Vol]0.5 mg/dLNormal0.2-1.0The [facility] Comment on above:Performed By: #### TSH, LIPID, CMP #### [facility] [address] [place] [address] Dr. Peewee RussellCalcium [Mass/Vol]9.0 mg/dLNormal8.5-10.1The [facility] Comment on above:Performed By: #### TSH, LIPID, CMP #### [facility] [address] [place] [address] Dr. Peewee RussellChloride [Moles/Vol]104 mmol/RQsczce96-545Nmv [facility] Comment on above:Performed By: #### TSH, LIPID, CMP #### [facility] [address] [place] [address] Dr. Peewee RussellCO2 [Moles/Vol]31.0 mmol/JSaetpx37.0-32.0The [facility] Comment on above:Performed By: #### TSH, LIPID, CMP #### [facility] [address] [place] [address] Dr. Peewee RussellCreatinine [Mass/Vol]0.75 mg/dLNormal0.70-1.30The [facility] HospitalComment on above:Performed By: #### TSH, LIPID, CMP #### [facility] [address] [place] [address] Dr. Vides ChangEGFR-AF TURKS AND CAICOS ISLANDER>60Normal>=60The [facility] HospitalComment on above:Performed By: #### TSH, LIPID, CMP #### [facility] [address] [address] [address] Peewee BrayGFR-NON AF TURKS AND CAICOS ISLANDER>60Normal>=60The [facility] HospitalComment on above:Performed By: #### TSH, LIPID, CMP #### [facility] [address] [address] [address] Peewee RussellGlobulin (S) [Mass/Vol]3.6 g/dLNormalThe [facility] HospitalComment on above:Performed By: #### TSH, LIPID, CMP #### [facility] [address] [address] [address] Peewee RussellGlucose [Mass/Vol]110 mg/dLCritically hmey99-045Pyo [facility] HospitalComment on above:Performed By: #### TSH, LIPID, CMP #### [facility] [address] [address] [address] Peewee RussellPotassium [Moles/Vol]4.6 mmol/LNormal3.5-5.1The [facility] Comment on above:Performed By: #### TSH, LIPID, CMP #### [facility] [address] [address] [address] Peewee RussellProtein [Mass/Vol]7.3 g/dLNormal6.4-8.2[facility] Comment on above:Performed By: #### TSH, LIPID, CMP #### [facility] [address] [address] [address] Peewee RussellSodium [Moles/Vol]140 mmol/OEebbup665-982Cvp [facility] Comment on above:Performed By: #### TSH, LIPID, CMP #### [facility] [address] [address] [address] Peewee RussellUrea nitrogen [Mass/Vol]13.0 mg/dLNormal7.0-18.0The [facility] HospitalComment on above:Performed By: #### TSH, LIPID, CMP #### [facility] [address] [address] [address] Peewee Whitney nitrogen/Creatinine [Mass ratio]17.3 mg/mgNormalThe [facility] HospitalComment on above:Performed By: #### TSH, LIPID, CMP #### [facility] [address] [place] [address] Dr. Peewee SánchezHogio 40-25-1541BMD1.463 uIU/mLNormal0.358-3.740The [facility] HospitalComment on above:Performed By: #### TSH, LIPID, CMP #### [facility] [address] [place] [address] Dr. Peewee RussellVITAMIN B12on 74-21-8977Obfaxytni (Vitamin B12) [Mass/Vol]620.0 pg/lSHrdmot335.0-986.0The [facility] HospitalComment on above:Performed By: #### VITB12 #### [facility] [address] [place] [address] Dr. Peewee RussellCNOVdoron 45-41-0165UFRAFiupzk Visit (PULMAV) JB VAIL ([id number]) 1945 M Date Time Provider Department 09/29/20 9:15 AM ADDIS VILLARREAL During your visit today, we recorded the following information about you: Pulse Blood pressure Weight 57/minute 138/71 69.4 kg Addis Villarreal MD 09/29/2020 4:07 PM Addendum NEW PATIENT [...] in the past, he was seeing a Laura feed manager. He had PFTs, about 2 years. He [...] years before he quit. 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 IMPRESSION: NO ACUTE RADIOGRAPHIC ABNORMALITY. Entry Specialist: PSCB Transcribe Date/Time: Sep 29 2020 9:03A Dictated by : ALY MAHONEY MD This examination was interpreted and the report reviewed and electronically signed by: ALY MAHONEY MD on Sep 29 2020 9:05AM EST [id number]_[facility] Vital Signs Date TimeVital SignValuePerforming ZjzzepeziSmddzgcz50-28-0225 09:34-0400Body hswqed129.8 cmDavid China DO Work Phone: [phone]08-27-2025 09:34-0400 Body mass index (BMI) [Ratio]21.5 kg/s1Gmuwc China DO Work Phone: [phone] [address]08-27-2025 09:34-0400 Body koawit80.03 kgDavid China DO Work Phone: [phone] [address]08-27-2025 09:34-0400 Diastolic blood kalscfps28 mm[Hg]Keith Atkinson DO Work Phone: [phone]08-27-2025 09:34-0400 Heart rate64 /minDavid Margaritanico DO Work Phone: [phone] [address]08-27-2025 09:34-0400 Systolic blood nbnjcmyj719 mm[Hg]Keith Atkinson DO Work Phone: 1(822)[address]08-05-2025 13:15-0400 Diastolic blood vglaogfp59 mm[Hg]Keith Atkinson DO Work Phone: 1(808)75633 [address]08-05-2025 13:15-0400 Heart rate64 /minDavid Girvin DO Work Phone: 1(210)[address] [place], [place] 3792108-05-2025 13:15-0400 Respiratory rate20 /minDavid Girvin DO Work Phone: [phone])[address] [place], [place] 3792108-05-2025 13:15-0400 SaO2% (BldA) [Mass fraction]99 %Keith Atkinson DO Work Phone: [phone])[address] [place], [place] 3792108-05-2025 13:15-0400 Systolic blood kkokafrk101 mm[Hg]Keith Atkinson DO Work Phone: [phone])[address] [place], [place] 3792108-05-2025 11:40-0400 Body gtxwfu534.8 cmDavid Girvin DO Work Phone: [phone])[address] [place], [place] 3792108-05-2025 11:40-0400 Body ucnbql81 kgDavid Girvin DO Work Phone: [phone])[address] [place], [place] 3792107-21-2025 09:43-0400 Body ochbif122.8 cmDavid Girvin DO Work Phone: [phone])[address] [place], [place] 3792107-21-2025 09:43-0400 Body mass index (BMI) [Ratio]21.4 kg/n0Fwkig Girvin DO Work Phone: 1419)[address] [place], [place] 3792107-21-2025 09:43-0400 Body ivequo03.58 kgDavid Girvin DO Work Phone: 1(419)[address] [place], [place] 3792107-21-2025 09:43-0400 Diastolic blood nggpzpdo21 mm[Hg]Keith Atkinson DO Work Phone: 1419)[address] [place], [place] 3792107-21-2025 09:43-0400 Heart rate64 /minDavid Girvin DO Work Phone: 1419)[address] [place], [place] 3792107-21-2025 09:43-0400 Respiratory rate16 /minDavid Girvin DO Work Phone: 1(928)[address] [place], [place] 3792107-21-2025 09:43-0400 SaO2% (BldA) [Mass fraction]98 %Keith Atkinson DO Work Phone: 1(977)6[address]07-21-2025 09:43-0400 Systolic blood aygiqvyw642 mm[Hg]Keith Atkinson DO Work Phone: 1(503)[address]07-15-2025 10:29-0400 Body uphgap836.8 cmDagradyjeff China DO Work Phone: 1(499)[address] [place], [place] 3792107-15-2025 10:29-0400 Body mass index (BMI) [Ratio]21.1 kg/h9Olnhujhonathan Atkinson DO Work Phone: 1(582)[address] [place], [place] 3792107-15-2025 10:29-0400 Body .67 kgDajhonathan Atkinson DO Work Phone: 1(472)[address] [place], [place] 3792107-15-2025 10:29-0400 Diastolic blood qvyrxstq23 mm[Hg]Keith Atkinson DO Work Phone: 1(712)[address] [place], [place] 3792107-15-2025 10:29-0400 Heart rate63 /minDavijeff China DO Work Phone: 1(901)[address] [place], [place] 3792107-15-2025 10:29-0400 Systolic blood rmfmufqj432 mm[Hg]Keith Atkinson DO Work Phone: 1(761)[address] [place], [place] 3792104-24-2025 08:33-0400 Body ubzapz963.8 cmSfelisa Hodges [employer] Work Phone: [facility] HospitalDciiurqkjw02-58-9104 08:33-0400Body mass index (BMI) [Ratio]22.53 kg/z8Wrvrgromi Hodges [employer] Work Phone: [facility] HospitalLslvmunlwl57-80-1877 08:33-0400Body .22 kgSaromi Hodges [employer] Work Phone: [facility]woodJbtoxcbptr72-77-8351 08:33-0400Diastolic blood sdbabxay00 mm[Hg]Génesis Hodges [employer] Work Phone: [facility] HospitalGqzqovnxji45-91-8664 08:33-0400Heart rate66 /min Génesis Hodges [employer] Work Phone: [facility] HospitalEamoyopxyr55-69-9217 08:33-0400Systolic blood unchbwaw493 mm[Hg]Génesis Hodges [employer] Work Phone: [facility] HospitalSpivqgnaun79-45-3853 13:33-0400Body ziboqe559.3 cmSfelisa Hodges [employer] Work Phone: 1(511)469-[address] [place], [place] [address]Pizmnswyke83-88-9099 13:33-0400Body mass index (BMI) [Ratio]23.18 kg/q7IkxsgGénesis Hodges [employer] Work Phone: 1(315)872-[address] [place], [place] [address]Mfeudgnexh92-20-9370 13:33-0400Body .22 kgGénesis Hodges [employer] Work Phone: [facility] HospitalPfxtpfdkfd76-34-5948 13:33-0400Diastolic blood durlcfkp16 mm[Hg]Génesis Hodges [employer] Work Phone: 1(157)984-[address] [place], [place] [address]Hyyjfmzmxh99-33-2948 13:33-0400Systolic blood axyfsxvz533 mm[Hg]Génesis Hodges [employer] Work Phone: 1(438)474-[address] [place], [place] [address]Cgqldhlbeu43-95-4639 11:38-0500Body temperature 97.4 [degF]Keith Atkinson DO Work Phone: [phone]03-08-2025 11:38-0500 Diastolic blood ipvheldc63 mm[Hg]Keith Atkinson DO Work Phone: [phone]03-08-2025 11:38-0500 Heart rate85 /Hope Atkinson DO Work Phone: [phone]03-08-2025 11:38-0500 Respiratory rate18 /Hope Atkinson DO Work Phone: [phone]03-08-2025 11:38-0500 SaO2% (BldA) [Mass fraction]97 %Keith Atkinson DO Work Phone: [facility]03-08-2025 11:38-0500 Systolic blood kefkaens293 mm[Hg]Keith Atkinson DO Work Phone: [facility]03-08-2025 06:00-0500 Body ydwdzx64.2 kgDajhonathan Atkinson DO Work Phone: [facility]03-07-2025 21:30-0500 Body ecsmhy136.8 cmDajhonathan Atkinson DO Work Phone: [facility]02-03-2025 08:57-0500 Body mass index (BMI) [Ratio]23.49 kg/k7Uizbrjimvfkyobani Aguirre DO Work Phone: [facility] HospitalZhozlfbjdl79-56-3888 08:57-0500Body jjchab95.21 kgChjoshtopher Aguirre DO Work Phone: [facility] HospitalRcoxfeisxs32-64-9662 08:57-0500Diastolic blood mm[Hg]Casper Aguirre DO Work Phone: [facility] HospitalXbqiergztt12-60-6796 08:57-0500Heart rate75 /min Casper Aguirre DO Work Phone: [facility] HospitalQvktnnnwea02-61-9201 08:57-1231VgU8% (BldA) [Mass fraction]97 %Casper Aguirre DO Work Phone: [facility] HospitalHyphfiuoak77-25-6723 08:57-0500Systolic blood mm[Hg]Jean Paultristian Timothy DO Work Phone: [facility] HospitalTjrrhgktrz60-49-4396 08:00-0500Body .8 cmKind[facility]01-22-2025 08:00-0500Body mass index (BMI) [Ratio]22.8 kg/t4JjhowsforKindred Hospital [place]01-22-2025 08:00-0500Body nqgogqniuiz69.2 [degF][facility]01-22-2025 08:00-0500Body wmkfyk76.12 kgKindred [facility]01-22-2025 08:00-0500Diastolic blood osudadrc37 mm[Hg][facility]01-22-2025 08:00-0500 Heart rate70 /[facility]01-22-2025 08:00-8641EtK5% (BldA) [Mass fraction]97 %[facility]01-22-2025 08:00-0500 Systolic blood lsbytbtl034 mm[Hg][facility]11-14-2024 11:53-0500Blood Pressure LocationJENNIFER KRISTINE [facility]11-14-2024 11:53-0500Body nbhxoepgoxn63.6 [degF]TL KRISTINE [facility]11-14-2024 11:53-0500Diastolic blood mm[Hg]TL CARMONA [facility]11-14-2024 11:53-0500Heart rate72 /minJENNIFER KRISTINE [facility]11-14-2024 11:53-0500Respiratory rate18 /minJENNIFER KRISTINE [facility]11-14-2024 11:53-0500Systolic blood uqwaqadl821 mm[Hg]TL CARMONA [facility]10-29-2024 09:35-0400Body snizlkmakka81 [degF][facility]10-29-2024 09:35-0400Diastolic blood wiucwoqi82 mm[Hg][facility]10-29-2024 09:35-0400Heart rate62 /[facility]10-29-2024 09:35-4175MgV5% (BldA) [Mass fraction]98 %[facility]10-29-2024 09:35-0400Systolic blood lfdyewnj984 mm[Hg][facility]10-29-2024 08:28-0400Body npnhza309.8 cmKind[facility]09-25-2024 14:24-0400Body mass index (BMI) [Ratio]22.2 kg/o1UarhnjqclKindred Hospital [facility]09-25-2024 14:24-0400Body .5 [degF][facility]09-25-2024 14:24-0400Diastolic blood bxuotzuj71 mm[Hg][facility]09-25-2024 14:24-0400Heart rate76 /[facility]09-25-2024 14:24-0400Respiratory rate18 /[facility]09-25-2024 14:24-2096OeH0% (BldA) [Mass fraction]99 %[facility]09-25-2024 14:24-0400 Systolic blood cktsiaru740 mm[Hg][facility]09-25-2024 11:58-0400Body lvmdol959.8 cmKind[facility]09-25-2024 11:58-0400Body .3 kgKind[facility]07-23-2024 08:12-0400Body fobhes142.8 [facility]07-23-2024 08:12-0400Body mass index (BMI) [Ratio]21.8 kg/n8MrqmrtzaeKindred Hospital [facility]07-23-2024 08:12-0400Body eytypddpfun55.3 [degF][facility]07-23-2024 08:12-0400Body unwocz22.94 kgKind[facility] 10-14-2023 08:12-0400Diastolic blood lnqrkcgo03 mm[Hg][facility]07-23-2024 08:12-0400Heart rate68 /[facility] 10-14-2023 08:12-0131CzL9% (BldA) [Mass fraction]97 %[facility]07-23-2024 08:12-0400Systolic blood uinjgvht866 mm[Hg][facility]01-16-2024 08:10-0500Body .8 cmDajhonathan Atkinson Other [email or web address] Other 01-16-2024 08:10-0500Body mass index (BMI) [Ratio] 23.53 kg/c6Iocbyjhonathan Atkinson Other [employer] Other 01-16-2024 08:10-0500Body llobmocgntg18.9 [degF]Keith Atkinson Other [employer] Other 01-16-2024 08:10-0500Body atvqsb37.39 kgDajhonathan Atkinson Other [employer] Other 01-16-2024 08:10-0500Diastolic blood owsbrnoh69 mm[Hg] Keith Atkinson Other [employer] Other 519295-27-5493 08:10-0500Respiratory rate18 /minDisadora Atkinson Other [email or web address] Other 01-16-2024 08:10-7747QbC3% (BldA) [Mass fraction]98 % Keith Atkinson Other [employer] Other 01-16-2024 08:10-0500Systolic blood mpigjgwd503 mm[Hg] Keith Atkinson Other [employer] Other 11-06-2023 11:09-0500Blood Pressure LocationPatricjune ACOSTA [facility]11-06-2023 11:09-0500Diastolic blood mm[Hg]Sanjuanita ACOSTA [facility]11-06-2023 11:09-0500Heart rate70 /minSanjuanita ACOSTA [facility]11-06-2023 11:09-0500Respiratory rate16 /minSanjuanita ACOSTA [facility]11-06-2023 11:09-0500Systolic blood luceicgm677 mm[Hg]Sanjuanita ACOSTA [facility]07-11-2023 08:10-0400Body qqxkap655.8 cmDajhonathan Atkinson Other [employer] Other [phone] 08:10-0400Body mass index (BMI) [Ratio] 21.88 kg/h9QtcarKeith Atkinson Other [employer] Other 791458-44-9754 08:10-0400Body dtsakooyyom98.5 [degF]Keith Atkinson Other [employer] Other 998490-82-5898 08:10-0400Body vxeyuo34.17 kgDajhonathan Atkinson Other [employer] Other 296123-86-8229 08:10-0400Diastolic blood amwlxikn15 mm[Hg] Keith Atkinson Other [employer] Other 07-11-2023 08:10-0400Respiratory rate18 /Hope Atkinson Other [employer] Other 606505-76-1211 08:10-8352FxT2% (BldA) [Mass fraction]99 % Keith Atkinson Other [employer] Other 07-11-2023 08:10-0400Systolic blood mm[Hg] Keith Atkinson Other [employer] Other 893952-05-5566 09:10-0500Body rqaanf989.8 cmDajhonathan Atkinson Other [employer] Other 987327-73-2829 09:10-0500Body mass index (BMI) [Ratio] 22.74 kg/d4Yhhazjhonathan Atkinson Other [employer] Other 894960-43-0327 09:10-0500Body iqmjfjrnuzv20.5 [degF]Keith Atkinson Other [employer] Other 615513-08-6173 09:10-0500Body ojvndo44.9 kgDajhonathan Atkinson Other [employer] Other [phone] 09:10-0500Diastolic blood zviaukxd95 mm[Hg] Keith Atkinson Other [employer] Other 671245-75-7510 09:10-0500Respiratory rate18 /minDisadora Atkinson Other [employer] Other 897687-37-9475 09:10-0149XkL8% (BldA) [Mass fraction]98 % Keith Atkinson Other [employer] Other 02-27-2023 09:10-0500Systolic blood mslhhibo090 mm[Hg] Keith Atkinson Other [employer] Other 750146-24-1304 09:10-0500Body jkaupy755.8 cmDajhonathan Atkinson Other [employer] Other 01-05-2023 09:10-0500Body mass index (BMI) [Ratio] 22.67 kg/r1OgbmdKeith Atkinson Other [email or web address] Other 108562-54-1141 09:10-0500Body ptfyfcqloqz72.5 [degF]Keith Atkinson Other [employer] Other 273412-19-3760 09:10-0500Body cjkvyh22.67 kgDajhonathan Atkinson Other [facility] Other 069636-25-6224 09:10-0500Diastolic blood foqyyulk97 mm[Hg] Keith Atkinson Other [facility] Other 456920-33-3186 09:10-0500Respiratory rate18 /minDisadora Atkinson Other [employer] Other 01-05-2023 09:10-6385QfR0% (BldA) [Mass fraction]99 % Keith Atkinson [facility] [employer] Other 01-05-2023 09:10-0500Systolic blood uulxbmsk085 mm[Hg] Keith Atkinson [facility] [employer] Other 07-18-2022 15:01-0400Blood Pressure LocationPatrick ACOSTA [facility] 07-18-2022 15:01-0400Diastolic blood iuwemrcx64 mm[Hg] Sanjuanita ACOSTA [facility] 07-18-2022 15:01-0400Heart rate72 /minPatrick ACOSTA [facility] 07-18-2022 15:01-0400Systolic blood mm[Hg] Sanjuanita ACOSTA [facility] 06-23-2022 09:10-0400Body cjsafm476.8 cmDajhonathan Atkinson Other [employer] Other 06-23-2022 09:10-0400Body mass index (BMI) [Ratio] 21.88 kg/b4QxygfKeith Atkinson Other [employer] Other 06-23-2022 09:10-0400Body vnjuqjymanr82.2 [degF]Keith Atkinson Other [employer] Other 06-23-2022 09:10-0400Body ywiclw53.17 kgDajhonathan Atkinson Other [employer] Other 06-23-2022 09:10-0400Diastolic blood bpkerygf80 mm[Hg] Keith Atkinson Other [employer] Other 06-23-2022 09:10-0400Respiratory rate18 /minDisadora Atkinson Other [employer] Other 06-23-2022 09:10-7760SzY2% (BldA) [Mass fraction]98 % Keith Atkinson Other [employer] Other 06-23-2022 09:10-0400Systolic blood jydeuzjm266 mm[Hg] Keith Atkinson Other [employer] Other 02-16-2022 17:00-0500Body .8 cmDavid Hyba Other [employer] Other 02-16-2022 17:00-0500Body mass index (BMI) [Ratio] 22.24 kg/v4Nfebu Hykes Other [employer] Other 02-16-2022 17:00-0500Body nlquhq09.31 kgDavid Hykes Other [employer] Other 12-21-2021 09:10-0500Body oehepf467.8 cmDajhonathan Atkinson Other [employer] Other 12-21-2021 09:10-0500Body mass index (BMI) [Ratio] 22.67 kg/v4Hkdygjhonathan Atkinson Other [employer] Other 12-21-2021 09:10-0500Body zniadzhkgmf45.4 [degF]Keith Atkinson Other [employer] Other 12-21-2021 09:10-0500Body cwcrco33.67 kgDajhonathan Atkinson Other [employer] Other 12-21-2021 09:10-0500Diastolic blood mm[Hg] Keith Atkinson Other [employer] Other 12-21-2021 09:10-0500Respiratory rate18 /minDavijeff Atkinson Other [employer] Other 12-21-2021 09:10-8546InB2% (BldA) [Mass fraction]99 % Keith Atkinson Other [facility] [employer] Other 12-21-2021 09:10-0500Systolic blood sshajcmr824 mm[Hg] Keith Atkinson Other [facility] Other Encounters Encounter DateEncounter TypeCare ProviderFacilityStart: 11-17-2024 End: 92-91-5630lqszbynpxbAbwsp Girvin DO Work Phone: [place] Work Phone: Start: 11-17-2024 End: 99-08-8836Vonnukf encounter procedureMyles Bonilla APRN-[facility] Work Phone: Start: 10-26-2024 End: 62-74-3383vkvsyycoiqFzdua GirvinFacility:[facility] Start: 11-78-0807Ukp-patient / Non-visitAndrez Toledo MD-[facility] Work Phone: Start: 10-12-2024 End: 00-88-8704Uhwseqh encounter procedureKeith Atkinson DO-Lab [address] Work Phone: Start: 10-12-2024 End: 98-84-3248itaoirxoimAdrjr China DO Work Phone: [facility] Work Phone: Start: 10-11-2024 End: 34-34-6318zpzbttipxmZcuts China DO Work Phone: [place] Work Phone: Start: 10-11-2024 End: 93-88-3757Cpofjeo encounter Aretha Hodges APRN-FNP-C-[facility] Work Phone: Start: 10-05-2024 End: 28-64-8845vlhbxxjadzRgziw Girvin DO Work Phone: [place] Work Phone: Start: 10-05-2024 End: 31-88-8222Pxgpioq encounter procedureAndrez Toledo MD-[facility] Work Phone: Start: 07-15-2024 End: 50-09-0595Zcxjpl Tiffani Hodges [employer] Work Phone: aNA BELLEVUEStart: 07-15-2024 End: 33-61-7644Sexetu flowsMirta Hodges [employer] Work Phone: aNA BELLEVUEStart: 07-15-2024 End: 39-87-5943Zeipqp outpatient visit 25 minutesSaraminda Hodges [employer] Work Phone: aNA BELLEVUEComment on above:Cognitive impairment (Primary Dx); Abnormal finding on MRI of brain; Vertigo; Cervical myelopathy (CMS/HCC)Start: 07-15-2024 End: 74-65-1023hqwwkpweipUYLVK CARROLLNot AvailableStart: 07-07-2024 End: 74-53-0176Ijjzvti encounter procedureCollin Iqbal PhD Work Phone: aNA Debbiement on above:Mild neurocognitive disorder (Primary Dx); Word finding difficulty; Anxiety with depression; Family history of dementiaStart: 07-07-2024 End: 90-58-8759rdtvswsviyIIRYFTWGIIX HASSETTNot AvailableStart: 07-01-2024 End: 46-59-4699Kcvamu Sydni Franco MD Work Phone: [facility] NB OPHTStart: 07-01-2024 End: 80-84-2712Gmhepl Sydni Franco MD Work Phone: [facility] NB OPHTStart: 07-01-2024 End: 38-60-1973modwhrynfvELLGG M ALLENNot AvailableStart: 06-28-2024 End: 66-64-2531Emlpro Brandyn Iqbal PhD Work Phone: aNA SANDUSKYStart: 06-28-2024 End: 15-71-1223Dhcmst Brandyn Iqbal PhD Work Phone: aWINSTON SANDUSKYStart: 06-28-2024 End: 30-13-1481Lsaqklh encounter Eliecer Iqbal PhD Work Phone: aWINSTON LISSETTEomment on above:Cognitive impairment (Primary Dx); Memory loss; Word finding difficulty; Anxiety with depressionStart: 06-28-2024 End: 01-98-7220mjeshblfpsZOAWQYPH DENBESTENNot AvailableStart: 06-16-2024 End: 61-96-7041Bybupm Tiffani Hodges [employer] Work Phone: aWINSTON BELLEVUEStart: 06-16-2024 End: 56-27-8413Ckusjb Tiffani Hodges [employer] Work Phone: aNA BELLEVUEStart: 06-16-2024 End: 71-60-8672Zptzdc outpatient visit 25 minutesSaromi Hodges [employer] Work Phone: aNA MARCEUEComment on above:Vertigo (Primary Dx); Abnormal finding on MRI of brain; Cognitive impairment; Cervical myelopathy ([facility]/HCC)Start: 06-16-2024 End: 10-71-2910kjgaczedvjXOUXO CARROLLNot AvailableStart: 05-28-2024 End: 10-31-5094Vmvdhrszaz and management of inpatientDavid Girvin DO Work Phone: [facility] Work Phone: Start: 05-28-2024 End: 24-81-2683ojypdicnywt encounterDavid Girvin DO Work Phone: [facility] Work Phone: Start: 05-28-2024 End: 36-94-1265fqdoxrtcamSmvb M KaplerFacility:[facility] Start: 17-71-1357Syq-patient / Non-visitDavid Girvin DO Work Phone: [facility] Work Phone: Start: 04-26-2024 End: 13-42-4862Pxrxbl flowsheetChristopher Timothy DO Work Phone: ana BELLEVUEStart: 04-26-2024 End: 34-98-8748Lqhezo flowsheetChristopher Timothy DO Work Phone: ana BELLEVUEStart: 04-26-2024 End: 27-99-8281Jznfov outpatient visit 25 minutesChristopher Timothy DO Work Phone: ana BELLEVUEComment on above:Mild cognitive impairment (Primary Dx); Cervical myelopathy (CMS/HCC)Start: 04-26-2024 End: 85-74-9593qoclxvbpjoZLQFDZTJKGO HASSETTNot AvailableStart: 04-14-2024 End: 66-67-1513errironcblMispwaaogChildren's Hospital of [facility] Work Phone: Start: 04-14-2024 End: 12-69-9008Qppzpoz encounter procedureCarolinas [facility] GroupK[facility]ue Work Phone: Start: 05-44-0594Poh-patient / Non-visitCar[facility]as [facility] Work Phone: Start: 02-05-2024 End: 17-53-0228fkdmikshlnWM-C JENNIFER E PERRYFacility:EU tart: 02-05-2024 End: 49-25-4142Hgxeynn encounter procedureJEDOUG Mackey KRISTINE [facility] start: 01-30-2024 End: 78-83-8258vlaimrusvkFhcfcxc R WATERSFacility:EU ueStart: 01-30-2024 End: 17-76-5030Ynsaxbs encounter procedureSanjuanita ACOSTA [facility] [place] start: 82-88-6066Sru-patient / Non-visitFirelands [facility]ician [facility] Work Phone: Start: 01-20-2024 End: 24-79-4607drvynwkzxvUieinnuohChildren's Hospital of [facility] Work Phone: Start: 01-20-2024 End: 27-61-2113Oprhsrt encounter procedureFirhomesteads Physician [facility] Work Phone: Start: 61-59-2631Xyp-patient / Non-visitFirelands Physician [facility] Work Phone: Start: 12-17-2023 End: 52-06-1383diotfefjqyHzhskhmfbChildren's Hospital of [facility] Work Phone: Start: 12-17-2023 End: 66-30-4185Dyldaeq encounter procedureFirelands Physician [facility] [place] Work Phone: Start: 10-14-2023 End: 71-29-7107sjuqzimlbqMkaokvoqwChildren's Hospital of [facility] Work Phone: Start: 10-14-2023 End: 76-79-6288Qyjashe encounter procedureFirhomesteads Physician Group-[facility] [place] Work Phone: Start: 17-32-7939Dpy-patient / Non-visitFirelands [facility] Work Phone: Start: 64-49-2627Zjl-patient / Non-visitFirelands Physician Group-[facility] [place] Work Phone: Start: 05-12-2023 End: 40-06-0630hlxrngvjvcXcreesj R WATERSFacility:EU [place]vueStart: 05-12-2023 End: 99-18-3815Rqvdqxn encounter procedureSanjuanita ACOSTA [facility] start: 04-14-2023 End: 52-52-5924djcwxffsjyLqhgs China Other [employer] Other Start: 22-10-0051Opllwxffq encounterDavid RajG [facility] [place]vueStart: 04-08-2023 End: 12-32-4338fjfkoszdxuVwklt China Other [employer] Other start: 81-08-8398Bwexfe outpatient visit 25 minutes Keith Lerma [facility] [place]vueStart: 03-10-2023 End: 87-44-7812mxulybomrjCtqwg China Other [email or web address] Other start: 42-51-5600Fgxicikya encounterDavid ChinaFPG [facility] [place]vueStart: 01-27-2023 End: 12-88-2614Zwrxnin encounter procedurePaeulalio ACOSTA [facility] start: 11-28-2022 End: 28-88-7931odoxabneolEtqet Girvin Other [email or web address] Other Start: 11-59-5232Ptobocthv encounterDavid RajG [facility] [place]vueStart: 10-01-2022 End: 43-75-2899qxqucltrzcYarcx China Other [email or web address] Other Start: 54-92-1881Oaafry outpatient visit 25 minutes Keith Lerma [facility] [place]vueStart: 09-27-2022 End: 14-04-0374splbjrmzxdWkymy Chian Other [email or web address] Other Start: 10-59-0122Npyobbxie encounterDavid GirnicoFPG [facility] [place]vueStart: 06-14-2022 End: 89-94-6775ifsyehyvyhMgdou Girvin Other [email or web address] Other Start: 21-34-0272Amupcmuio encounterDavid MargaritaMarissaG [facility] Medicine [place]vueStart: 05-29-2022 End: 39-76-0153ndvbaopsnaPypvv Girvin Other [employer] Other Start: 59-90-3977Vsfljxtxh encounterDavid MargaritaMarissaG [facility] [place]Start: 05-20-2022 End: 57-75-2559akfxsaqowaZvdqx Girnico [facility] [employer] Other Start: 71-58-6063Sqztxn outpatient visit 15 minutes [facility] ueStart: 04-05-2022 End: 65-29-8331wqdlbikholWqskf Girnico Other [email or web address] Other Start: 11-77-7088Ngggqseht encounterDavid MargaritaMarissaG [facility] [place]Start: 03-28-2022 End: 67-05-0886oumktsxmzsRdlfj Girvin Other [email or web address] Other Start: 83-22-1823Zxxjdn outpatient visit 25 minutes [facility] [place]Start: 03-25-2022 End: 45-14-3440ypkvipahqgQT KEITH ATKINSONFacility:W5Rhhrp: 10-08-2021 End: 34-96-1478Avagngg encounter Sher ACOSTA [facility] start: 10-04-2021 End: 29-70-9108qrospyysjaDI SANJUANITA ACOSTAFacility:F3Cuibj: 09-13-2021 End: 75-81-6610mwjyuwzmmkHrqjw [place] Other [email or web address] Other Start: 20-24-5000Vvpvye outpatient visit 25 minutes [facility] [place]Start: 09-10-2021 End: 48-93-4213drmbrfreqcVE KEITH ATKINSONFacility:E6Uvnyo: 07-20-2021 End: 23-24-8348cfdsqfokatOjkjw Hykes Other [email or web address] Other Start: 67-75-2520Lnywmiiur encounterDavid Perla GastroenterologyStart: 06-04-2021 End: 92-59-7988gkbucmfbmuBkydj [place] Other [email or web address] Other Start: 85-67-0453Xqoalxyiw encounterDavid [facility]vueStart: 05-09[facility]2021 End: 62-14-5681ctebujsqbvSzhhz Hykes Other [email or web address] Other Start: 87-83-3260Csppor outpatient visit 25 minutes Keith Duncan GastroenterologyStart: 04-04-2021 End: 46-00-2842jinwcqwjvoWgmcj [place] Other [email or web address] Other Start: 51-11-1586Nsoqprxpn encounterDavid [facility] BellevueStart: 03-28-2021 End: 38-62-9925tgwbrafpbnHfkzg Girnico Other [email or web address] Other Start: 09-36-4166Rpakwgnbd encounterDavid GirnicoFPG [facility] Medicine BellevueStart: 03-27-2021 End: 98-26-5504qopbbxjnwoVklok Girvin Other north [employer] Other Start: 83-26-8615Fvwxzdidm encounterKeith Lerma [facility]: 03-13-2021 End: 73-76-1554fanvsuwbhrUaezu Girvin Other [employer] Meil[employer]i Other Start: 69-18-3702Rcddyt outpatient visit 25 minutes Keith Lerma [facility] Procedures DateProcedureProcedure DetailPerforming ClinicianStart: 07-01-2024 End: 16-85-9039Wtyyh medical xm&eval compre new pt 1/> vstCortical age-related cataract of both eyesCarol Franco MD Work Phone: comment on above:Cortical age-related cataract of both eyes (Primary Dx); Blepharitis of upper eyelids of both eyes, unspecified typeStart: 18-25-8879LMV of headKeith Atkinson DO Work Phone: Start: 07-32-6485Siexmcxtheh biopsy of prostate using ultrasound guidancePunch Bowl Social Start: 28-03-8878ITQ screeningDR KEITH ATKINSONComkeren on above:Performed By: #### PSAD #### [facility] [address] [place] [address] Dr. Peewee RussellStart: 34-64-4629wscut elbow removal of hardwarePaPayDivvy Start: 51-17-0629Pzym reduction of fracture of elbow with internal fixationPaPayDivvy Comment on above:Right elbowStart: 12-26-2011 Transurethral prostatectomyPaPayDivvy Start: 44-23-3271Atcfxihocq studiesPaPayDivvy Start: 24-29-9139Cyqtzihwhsushbb guided transrectal cryoablation of prostatePunch Bowl Social Start: 09-68-0766BduedcnfsmInosnui WATERS arthroscopyPaeulalio ACOSTA Comment on above:Right shoulderlower back surgery Sanjuanitasoren ACOSTA neck surgery 3Pekta ACOSTA Comment on above:zephyr plate -titaniumRight hand third finger surgeryPaeulalio ACOSTA Plan of Treatment DateCare ActivityDetailAuthorStart: 62-65-8410ZnuvttwswKindred Hospital Dayton Start: 10-11-2024 End: 14-30-0436Fihzwzy encounter gxbgslzla19/21/2025 9:40 AM EDT Office Visit MARGUERITE RAMÍREZ [address] [place] [phone] Génesis Hodges NP [address] [place] [address] MARGUERITE GARCIAtart: 08-23-2024 End: 96-48-5652OZ Brain WO and W contrast IVMR brain w and wo contrast routine Imaging Routine Abnormal finding on MRI of brain Cognitive impairment Expected: 08/23/2024 (Approximate), Expires: 07/15/2025NOWA HealthcareComment on above: Expected: 08/23/2024 (Approximate), Expires: 07/15/2025Start: 07-15-2024 End: 75-25-2529Uzedtsiggwj [Units/volume] in Serum or PlasmaTSH Lab Routine Cognitive impairment Expected: 07/15/2024 (Approximate), Expires: 07/15/2025[facility] Work Phone: comment on above:Expected: 07/15/2024 (Approximate), Expires: 07/15/2025Start: 07-15-2024 End: 09-06-2434Ersdecg encounter procedureMARGUERITE RAMÍREZComment on above:Arrived Start: 07-07-2024 End: 64-46-4581Gumeujy encounter qpnptjiaw68/16/2025 9:00 AM EDT Office Visit MARGUERITE WOLFF [address] [address] [place] [phone] aNA SANDUSKYStart: 07-01-2024 End: 77-22-5915Wjkahiw encounter procedureNOMS NB OPHTComment on above:Arrived Start: 06-28-2024 End: 77-40-5721Raeyfmw encounter bpcdqngzi96/07/2025 9:30 AM EDT Office Visit MARGUERITE WOLFF [address] [facility] [address] [place] [phone] Collin Iqbal, PhD [address] [place] [id number] Cognitive impairmentANA SANDUSKYComment on above:Cognitive impairmentStart: 06-16-2024 End: 40-85-6347Tkhpiqq encounter ieqrakxla22/26/2025 1:40 PM EDT Office Visit MARGUERITE RAMÍREZ [address] [place] [address] Génesis Hodges NP [address] [place] [phone] ArrivedANA DESIREEComment on above:ArrivedStart: 02-11-2872EfzkqhlnnAultman Alliance Community Hospitaltart: 70-97-8435Xveqnhnf to neurologistAultman Alliance Community Hospitaltart: 46-36-9353Paodguhr admissionKindred Hospital Dayton Start: 04-26-2024 End: 06-96-5466Lqotlgv encounter cgpugncgq96/03/2025 9:00 AM EST Office Visit MARGUERITE RAMÍREZ [address] [place] [phone] Casper Aguirre DO [address] [place], [place] [id number] ArrivedANA DESIREEComment on above:ArrivedStart: 12-17-2023 Patient referralCenterville Work Phone: Comprehensive metabolic 1999 panel - Serum or Plasma [facility] DaytonComprehensive metabolic 1999 panel - Serum or PlasmaKindred Hospital DaytonCT Abdomen and Pelvis W contrast IV [facility] DaytonPatient EducationKeenan Private Hospital Work Phone: Patient referralCenterville Work Phone: XR Chest 2 [facility] Immunizations Immunization DateImmunizationNotesCare RbxrkfamUjolfkut05-90-9693FGURB-62 Vaccine Pfizer - Documentation Purposes OnlyDavid Girvin Other [facility]10-30-2023Flu Shot - Documentation Purposes OnlyDavid Girvin Other [facility]10-30-2023influenza virus vaccine, unspecified formulationPunch Bowl Social [facility]09-15-2022influenza virus vaccine, unspecified formulationPunch Bowl Social [facility]09-15-2022SARS-CoV-2 (COVID-19) mRNAMUL.ORD![id number] WATERS [facility]09-15-2022influenza, seasonal, injectableDavid Girvin Other [facility]04-08-2022SARS-CoV-2 (COVID-19) mRNA-1273 vaccinePunch Bowl Social [facility] CenterComment on above:Result Comment: 2023-01-27: [id number], seasonal, injectableDavid Girvin Other [facility]10-06-2021influenza virus vaccine, unspecified formulationPunch Bowl Social [facility]10-06-2021pneumococcal polysaccharide vaccine, 23 valentPunch Bowl Social [facility]09-25-2021COVID-19 Vaccine Moderna - Documentation Purposes OnlyDavid Girvin Other [facility] Centerment on above:Result Comment: 2023-01-27: [id number] vaccine recombinantDavid Girvin Other [facility]03-09-2021COVID-19 Vaccine Moderna - Documentation Purposes OnlyDavid Girvin Other [facility]02-08-2021COVID-19 Vaccine Moderna - Documentation Purposes OnlyDavid Girvin Other [facility]12-29-2020zoster vaccine recombinantDavid Girvin Other [facility]10-01-2020influenza virus vaccine, unspecified formulationPaPayDivvy [facility]10-01-2020pneumococcal conjugate vaccine, 13 valentPatrick ACOSTA [facility]10-01-2020influenza, seasonal, injectableDavid Girvin Other [facility]10-01-2020 pneumococcal polysaccharide vaccine, 23 valentDavid Girvin Other [facility]10-07-2019influenza virus vaccine, unspecified formulationPatricdocumistic [facility]10-01-2019influenza virus vaccine, unspecified formulationPaPayDivvy [facility]10-01-2018influenza virus vaccine, unspecified formulationPaPayDivvy [facility]10-01-2018influenza, seasonal, injectableDavid Girvin Other [facility]07-15-2018tetanus toxoid, adsorbedDavid Girvin Other [facility]10-30-2017influenza virus vaccine, unspecified formulationPaPayDivvy [facility]10-30-2017pneumococcal polysaccharide vaccine, 23 valentDavid Girvin Other [facility]10-02-2017influenza virus vaccine, unspecified formulationPaPayDivvy [facility]10-02-2017influenza, seasonal, injectableDavid Girvin Other [facility]10-19-2016influenza virus vaccine, unspecified formulationPaPayDivvy [facility]10-07-2015influenza virus vaccine, unspecified formulationPaPayDivvy [facility]10-20-2009influenza, wholePatricdocumistic [facility] CenterNEGATED: Highlighted row has not occurred!25-95-3075HIJP-CoV-2 mRNA (tozinameran 5y-11y) vaccinePatricdocumistic [facility] Payers DatePayer CategoryPayerPolicy [id number]-vap [id number] 2025Medicare (Managed Care)[employer] MEDICARE [id number] [id number] [id number] [id number] [id number] 2.0.1.677594.3.57[id number] 2.0.1.100121.3.57[id number] 2.0.1.963541.3.57[id number] 2.160.1.417036.3.57[id number] 2.16840.1.953874.3.57[id number] 2.160.1.663653.3.57[id number] 2.16840.1.451436.3.57[id number] 2.840.1.089285.3.57[id number] 2.16.840.1.176207.3.57[id number] 2.16.840.1.425228.3.57[id number] 2.16.840.1.088416.3.57[id number] 2.16.840.1.291684.3.57[id number] 2.16.840.1.8[id number] 2.16.840.1.774993.3.579.2.531 [id number] 2.160.1.525995.3.579.2.531 Social History DateTypeDetailFacilityUnknown if ever smokedCope [employer] Other Start: 07-05-2024 End: 66-45-7987Bua Assigned At [facility] [employer] Other Start: 17-97-7709Ckizequ smoking statusNever smoked tobacco (finding)[facility] start: 01-27-2023 End: 83-59-7692Ysuezkt smoking statusEx-smoker (finding)[facility] CenterTobacco smoking statusNeverExec[facility] Hospitaltart: 94-25-2832Zjk Assigned At [facility] Generaltart: 04-14-2024 End: 61-32-0241BunGtrr (finding)[facility] DaytonTobacco smoking status NHISTobacco smoking consumption unknownBL[facility] HealthcareStart: 1945 Sex assigned at birthNot on [facility] HealthcareStart: 21-11-3538VOCW Follow up SDOH Follow upKeenan Private Hospital Work Phone: History of tobacco useCurrent smokerBLUE MOUNTAIN HOSPITAL Healthcare History of tobacco useCigarette SmokerBLUE MOUNTAIN HOSPITAL HealthcareStart: 12-50-8802Beyjepu use and exposureSmokeless tobacco non-userBLUE MOUNTAIN HOSPITAL HealthcareStart: 07-05-2024 End: 14-33-0523Iglondi of Social functionNOWA Healthcare Goals DatePatient GoalDesired Activity/State Functional Status RsmoWontjsgbulJmxgckDcdxyfog10-70-1798Cwhtpzlhzl statusPatient at Baseline [facility] Work Phone: [phone]) 974-92811166292-21-7090Crrdfspzdy StatusN/AExec[facility]11-06-2023Functional StatusN/AExec[facility]07-18-2022Functional StatusN/A [facility] Mental Status PuebIcuuuojareOtcxweTuffnine55-14-2671Kinumgakb functionCognitive Status Patient at BaselineKeenan Private Hospital Work Phone: Clinical Notes 09-29-2020 to 10-05-2024 Note Date & KdwaRyfzFbpdorsi16-03-7513 Evaluation note* Diagnosis Onset Date Resolution Status Admit Date Abdominal pain acuteJuly 2024 10:28amDyspepsiaacuteJuly 2024 10:28amEarly satiety acuteJuly 2024 10:28amLoss of appetiteacuteJuly 2024 10:28amNausea & vomitingacuteJuly 2024 10:28amWeight lossacuteJuly 2024 10:28am Abnormal finding on MRI of brainchronicJuly 2024 9:37amCervical myelopathy chronicJuly 2024 9:37amMCI (mild cognitive impairment)chronicJuly 2024 9:37amVertigoresolvedJuly 2024 9:37am [place] Work Phone: 1(556) 616-315907-15-2025 Evaluation note* Diagnosis Onset Date Resolution Status Admit Date Abdominal pain acuteJuly 2024 10:28amDyspepsiaacuteJuly 2024 10:28amEarly satiety acuteJuly 2024 10:28amLoss of appetiteacuteJuly 2024 10:28amNausea & vomitingacuteJuly 2024 10:28amWeight lossacuteJuly 2024 10:28am Abnormal finding on MRI of brainchronicJuly 2024 9:37amCervical myelopathy chronicJuly 2024 9:37amMCI (mild cognitive impairment)chronicJuly 2024 9:37amVertigoresolvedJuly 2024 9:37amDyspepsiaacuteAugust 2024 9:20amEarly satietyacuteAugust 2024 9:20amWeight lossacuteAugust 2024 9:20am [place] Work Phone: 1(639) 799-827304-24-2025 History of Present illness Narrative* Génesis Hodges, ALEJANDRINA - 07/15/2024 8:40 AM EDT Images from the original note were not included. Chief Complaint Patient presents with Dizziness Memory Loss Subjective Jb Vail is a 78 y.o. male. History of Present Illness The patient presents today for follow-up. He is accompanied by his , Helga. He is here to review neuropsychological evaluation. He states his memory is still poor. He and his deny any noticeable change in his memory or cognitive function since the prior neurology appointment on 06/16/2024.The patient remains independent with all ADLs. He continues to receive assistance with medication management and denies missed doses of medications or accidentally taking more than prescribed. He only drives locally now and for short distances. Generally, his provides transportation for him. He denies difficulty operating a motor vehicle or getting lost while driving. He denies hallucinations or delusions. The patient denies wandering, leaving heat sources on accidentally, or any safety concerns. His confirms this. He continues to sleep well. He follows with Dr. Atkinson for anxiety and takes venlafaxine but does not believe this is optimally controlled. He admits he does worry because his brother had, bad dementia. The patient denies any vertigo, dizziness, falls, or syncope since the prior neurology appointment.He denies any further new concerns. Review of Systems Constitutional: Negative for appetite change, chills, fatigue, fever and unexpected weight change. HENT: Negative for trouble swallowing and voice change. Eyes: Negative for visual change, double vision or loss of vision Respiratory: Negative for cough, shortness of breath and wheezing. Cardiovascular: Negative for chest pain and palpitations. Gastrointestinal: Negative for abdominal pain, blood in stool, nausea and vomiting. Musculoskeletal: Negative for arthralgias, gait problem and myalgias. Neurological: Negative for dizziness, tremors, seizures, syncope, facial asymmetry, speech difficulty, weakness, light-headedness, numbness and headaches. Positive for memory difficulty Psychiatric/Behavioral: Positive for confusion. Negative for hallucinations, self-injury and suicidal ideas. The patient is nervous/anxious. Home Medication List co-enzyme Q-10 30 MG capsule cyanocobalamin 1000 MCG tablet; Commonly known as: Vitamin B-12 donepezil 5 MG tablet; Commonly known as: Aricept; TAKE 1 TABLET BY MOUTH AT BEDTIME finasteride 5 MG tablet; Commonly known as: Proscar niacinamide 100 MG tablet simvastatin 40 MG tablet; Commonly known as: Zocor tiotropium 18 MCG inhalation capsule; Commonly known as: Spiriva valACYclovir 500 MG tablet; Commonly known as: Valtrex venlafaxine 75 MG tablet; Commonly known as: Effexor Past Medical History: Diagnosis Date Basal cell carcinoma of skin Cervical spinal stenosis COPD (chronic obstructive pulmonary disease) (CMS/HCC) DDD (degenerative disc disease), lumbar History of measles, mumps, or rubella Hyperlipidemia (CMS/HCC) Irritable bowel syndrome with predominant constipation Spastic colon Past Surgical History: Procedure Laterality Date ADENOIDECTOMY CERVICAL SPINE SURGERY anterior discectomy and cervical fusion for severe cervical spinal stenosis at C5-C6 COLONOSCOPY CYSTOSCOPY ESOPHAGOGASTRODUODENOSCOPY LUMBAR SPINE SURGERY lumbar laminectomy TONSILLECTOMY TRANSURETHRAL RESECTION OF PROSTATE Family History Problem Relation Name Age of Onset Cancer Father Heart disease Father Kidney disease Sister Heart disease Brother Heart failure Brother Social History Tobacco Use Smoking status: Former Types: Cigarettes Smokeless tobacco: Never Substance Use Topics Alcohol use: Not on file Allergies: Penicillins and Sulfa antibiotics Vitals: 07/15/24 0833 BP: 125/72 Pulse: 66 Body mass index is 22.53 kg/m . Weight: 157 lb Neurologic exam: Mental status and general appearance: Awake and alert with unlabored respirations. Oriented to person, place, and time. Recent and remotememory are generally intact. Speech is clear and fluent without aphasia. Speech is non-dysarthric. Attention and concentration are normal. Fund of knowledge is appropriate for level of education. Pleasant. Cranial nerves: CN II: Visual acuity is normal. Visual hensley full to confrontation. CN III, IV, : Pupils are equal, round, and reactive to light. Extraocular movements intact. No ptosis present. CN V: Facial sensation is normal. CN VII: Full and symmetric facial movement. CN VIII: Hearing is normal to finger rub bilaterally. CN IX and X: Palate elevates symmetrically. CN XI: Shoulder shrug is normal bilaterally. CN XII: Tongue is midline without atrophy or fasciculation. Motor: RUE strength deltoid , biceps , triceps , wrist extensors , wrist flexor , and algology teacher strength 5/5. LUE strength deltoid , biceps , triceps , wrist extensors , wrist flexor , and algology teacher strength 5/5. RLE strength iliopsoas, quadriceps, tibialis anterior, and plantar flexion strength 5/5. LLE strength iliopsoas, quadriceps, tibialis anterior, and plantar flexion strength 5/5. Tone and bulk are normal. Right hand deformity (pain states chronic). Sensory: Sensation is intact to light touch throughout all four extremities. Sensation is intact to temperature in all extremities. Reflexes: RUE biceps reflex 2+ , brachioradialis reflex 2+. LUE biceps reflex 2+ , brachioradialis reflex 2+. RLE knee reflex 2+. LLE knee reflex 2+. Coordination: Ozkdzr-pl-yzwu testing normal. Rapid alternating movements are normal. Gait: Steady. Review and summary of old records: [facility] on 07/07/2024: Current neuropsychologicalevaluation demonstrates distractibility that is expected to have interfered with optimal performance at times. Findings are therefore interpreted with caution. Data reveals largely restricted memory struggles. Overall presentation and history is most consistent with Mild Neurocognitive Disorder, exacerbated by anxiety and variable depression. I reviewed discharge paperwork from [place] [facility] The patient was hospitalized from 05/28/2024 to 05/29/2024. He initially presented to the [facility] with severe dizziness and was transferred [place] [facility] MRI of the brain on 05/28/2024 identified noacute intracranial abnormality. MRI of the brain without contrast at [facility] [place]28/2024: 6 mm signal abnormality identified in the lateral portion of the right frontal lobe. This appears to be an extra-axial location. This may correspond with a meningioma. This is likely an incidental finding. May consider follow up assessment with contrasted MRI of the brain. No acute vascular distribution infarction is identified. Diffuse atro phy and chronic small-vessel ischemic changes. MOCA score on 04/26/2024: 20/30. MOCA from 07/30/2021: 26/30 with 2/5 recall. MRI brain shows age consistent atrophy and chronic small vessel ischemic changes. MOCA score on 08/09/2020: 23/30 with 2/5 recall. Vitamin B12 491. MRI of the cervical spine on 11/21/2005 (per [facility] chart review): Status post ventral spinal fusion at C5-6. Localized cord atrophy and abnormal increased signal intensity on T2 imaging within the cord at the C5-6 disc interspace level. This is likely related to myelomalacia related to a prior cord contusion or other type injury. I do not see any evidence of enhancement to suggest demyelination. There is an associated posterior right paracentral osteophytic spur which results in moderate narrowing of the canal at this level. Milder to moderate central canal stenosis secondary to degenerative changes at C4-5. Multilevel facet arthropathy and degenerative disc disease. Multilevel neural foraminal narrowing related to degenerative changes as described above. Assessment/Plan Diagnoses and all orders for this visit: Mild cognitive impairment (MCI) The patient reports subjective memory difficulty dating back at least 5+ years with progressive worsening but at a slow pace. He remains independent with all ADLs. However, he does notice some difficulty with recall of names, word retrieval, and short-term memory which are bothersome to him. There is a positive family history of late-onset dementia in his father and brother, and this causes the patient a lot of anxiety, as he wonders if he will develop it too. MOCA score on 04/26/2024 was 20/30. Neuropsychological evaluation on 07/07/2024 revealed some memory struggles thought to be most consistent with mild neurocognitive disorder, exacerbated by anxiety and variable depression. The patient seems to sleep well and denies daytime fatigue, snoring, or apneic episodes while asleep to suggest GLORIA. He takes vitamin B12 supplementation which is reportedly managed by his primary care provider. PLAN: - I reviewed results and recommendations of neuropsychological evaluation with the patient and his - I educated the patient and his on features, possible underlying causes, and management of MCI - Check TSH - I recommended ensuring adequate sleep (at least 8 hours per night), healthy diet such as the Mediterranean diet, regular exercise as tolerated, brain stimulating activities, and participation in lifelong learning - I advised the patient to follow up closely with his PCP for management of blood pressure, blood glucose, and hyperlipidemia to help prevent further cognitive decline - I advised the patient to schedule an appointment with his PCP to discuss management of anxiety, as this does not seem adequately controlled and could be negatively impacting his cognitive function.He verbalizes understanding. I also offered referral to counseling and/or psychiatry, but this was declined by the patient - to continue to assist with medication management - Continue donepezil 5 mg by mouth daily at bedtime Abnormal finding on MRI of brain MRI of the brain on 05/28/2024 identified a 6 mm signal abnormality in the lateral portion of the right frontal lobe thought to possibly represent a meningioma. I believe this is unlikely to be contributing to the patient's symptoms. PLAN: - Repeat MRI of the brain w and wo contrast in August 2024 for lesion surveillance Vertigo The patient [facility] ED [facility] involving episodic dizziness and imbalance. The patient did also have a history of intermittent vertigo prior to this for which vestibular therapy was helpful. MRI of the brain on 05/28/2024 did not identify any central etiology to explain his symptoms. Per hospital paperwork, CTA revealed 50% stenosis of the left common carotid artery at the left bulb with less than 50% stenosis of the right bulb. I believe the patient's symptoms could be secondary to aperipheral process such as BPPV. They have resolved since completing vestibular rehabilitation upondischarge. PLAN: - Monitor clinically Cervical myelopathy (CMS/HCC) History of cervical spinal stenosis with compressive myelopathy status post decompressive surgery. Diagnosis and treatment options discussed in detail. All questions answered. The patient and his verbalize understanding and are agreeable to the plan. Discussion in layman's terms. Follow up in the office within 3 months; sooner if needed for new or worsening symptoms. Génesis Hodges NP [facility] documented in this encounterTexas County Memorial [id number] History of Present illness Narrative* Collin Iqbal, PhD - 07/07/2024 9:00 AM EDT Images from the original note were not included. Neuropsychology Collin Iqbal, PhD NEUROPSYCHOLOGICAL EVALUATION Jb Vail is a 78 y.o. male referred for neuropsychological evaluation to assist with facilitating and informing medical differential diagnosis and clinical decision-making. The following information was obtained during an interview with the patient and , as well as review of available records. PRESENTING PROBLEM: Slow progressive decline in memory and word finding struggles over the past 5+ years. Reported memory concerns as general forgetful episodes. Patient described memory as terrible . Will frequently forget what he is looking for. Loses train of thought as well. Otherwise, remains independent in ADLs, household responsibilities, finances, and medication. Continues to drive although largely restricts this to in-town familiar destinations. Less comfortable traveling out of town. Has become less physically active as well. Socially more homebody. Good sleep quality overall with minimal snoring. Pain complaints include general aches and pains and feeling much slower. No prior neurological history. MoCA 26/30. Recent brain MRI nonacute with right frontal lobe meningioma without mass effect. Family neurological history includes dementia (olderbrother). Psychiatric history notable for depression and anxiety. No history of alcohol/substance abuse. Reformed smoker. [place] language Romanian. Completed high school education. 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 He has one child. MEDICAL HISTORY/MEDICATION: MEDICATIONS: Current Outpatient Medications Medication Instructions co-enzyme Q-10 60 mg, Daily cyanocobalamin (VITAMIN B-12) 1,000 mcg, Daily donepezil (ARICEPT) 5 mg, Oral, Nightly finasteride (PROSCAR) 5 mg, Daily niacinamide 100 mg, 2 times daily with meals simvastatin (ZOCOR) 40 mg, Nightly tiotropium (Spiriva) 18 MCG inhalation capsule 1 capsule, Daily RT valACYclovir (VALTREX) 500 mg, Daily venlafaxine (EFFEXOR) 75 mg, Daily ASSESSMENT: Presented to appointment on time, alert, and Ox3. Rapport easily established. Good eye contact. Socially appropriate during conversation and testing. Hearing adequate for current purposes. Ambulated independently. Purpose for current evaluation explained and patient agreed to participate. Preoccupied with having his freedom taken away. Required frequent redirection to task at hand as he had the tendency to go off on tangents. As a result of variable levels of engagement, findings are interpreted with caution. Vision/Visuoconstruction: Binocular near-point visual acuity 20/25. Visual hensley full to confrontation. Visuoconstruction 18th %ile. Nonverbal abstract reasoning 24th %ile. Copy of a complex geometric design >16th %ile. Motor/Speed of Processing: Right-handed. Supervisor Adult Education strength 7th %ile with right-hand, 34th %ile with left. Speeded graphomotor transcoding 62nd %ile. Attention/Working Memory: Auditory attention/working memory 21st %ile (5 digits forward, 4 digits backward, 4 digits during sequencing). Speeded visual scanning/attention 24th %ile. Speeded visual divided attention 62nd %ile. Speech/Language: Expressive speech fluent and absent of paraphasic errors. Comprehension adequate for current purposes. Single-word reading 21st %ile. Generative naming to phonemic cues 73rd %ile, 76th %ile to semantic cues. Confrontation naming 12th %ile. Verbal abstract reasoning 2nd %ile. Learning and Memory: Repeated self often throughout assessment. Required frequent repetition of instructions. Learning of a word list 1st %ile (3-3-2-4-4), delayed recall 1st %ile. Recognition discriminability 1st %ile. Forced-choice 03/08. Immediate recall for prose passages 1st %ile, delayed <1st %ile. Recognition 17-25th %ile. Immediate recall for a variety of geometric figures 10th %ile, delayed 1st %ile. Recognition 26-50th %ile. Executive Functioning: Novel problem-solving and cognitive flexibility 11-16th %ile, 1/6 categoriescompleted in 64 sorts. Responding absent of significant perseveration. Emotional Functioning: Minimal depression and moderate anxiety. Reported occasional thoughts of self-harm on days his memory is especially bad. FINDINGS AND RECOMMENDATIONS: CONCLUSIONS: 1. Estimated low average pre-morbid intellectual functioning. 2. Preserved visual acuity without signs of visual field cut or neglect. 3. Preserved bilateral gross motor function. 4. Minimal depression and moderate anxiety. OPINION: Current neuropsychological evaluation demonstrates distractibility that is expected to have interfered with optimal performance at times. Findings are therefore interpreted with caution. Data reveals largely restricted memory struggles. Overall presentation and history is most consistent with Mild Neurocognitive Disorder, exacerbated by anxiety and variable depression. RECOMMENDATIONS: Results and recommendations forwarded to treating physician for review during their next appointment. Patient encouraged to contact this office with any additional questions. Extra caution driving. encouraged to keep an eye on finances and medication to minimize potential errors. Continued monitoring and management of mood. Memory strategies: Regularly and frequently review information that must be remembered. Link new information in as many ways as possible to already known information. This strategy creates several avenues for remembering the information later. Utilize external memory sources such as lists, date books, calendars, and pocket-size recorders forinformation that must be remembered. A smartphone is a useful tool in consolidating all this information into one source. Active listening, such as repeating and summarizing information back to presenter when learning important information for future recall may be beneficial as opposed to simply passive listening. Establish a consistent structured routine. Regular physical activity for stress relief, improved cognitive efficiency, and optimal sleep. Attempt new hobbies and skills, keep learning. Proper nutritional intake, such as Mediterranean-style diet, while paying close attention to food sourcing. Neuropsychological re-evaluation in 12-18 months. Thank you for allowing me to participate in the care of this individual. Please contact me with [employer] at [phone]. documented in this encounterTexas County Memorial [id number] History of Present illness Narrative* Carol Franco MD - 07/01/2024 9:15 AM EDT Assessment/Plan Cataract, OU: Observe for now without intervention. The patient was advised to contact us if any change or worsening of vision Blepharitis, posterior type OU - The patient exhibits inspissated meibomian glands. Warm compresses, lid massage and lid scrubs were recommended. documented in this encounterTexas County Memorial [id number] History of Present illness Narrative* Collin Iqbal, PhD - 06/28/2024 9:30 AM EDT Images from the original note were not included. Collin Iqbal, PhD NEUROBEHAVIORAL STATUS EXAMINATION Jb Vail is a 78 y.o. male referred for neuropsychological evaluation to assist with facilitating and informing medical differential diagnosis and clinical decision-making. The following information was obtained during an interview with the patient and , as well as review of available records. PRESENTING PROBLEM AND HISTORY Slow progressive decline in memory and word finding struggles over the past 5+ years. Reported memory concerns as general forgetful episodes. Patient described memory as terrible . Will frequently forget what he is looking for. Loses train of thought as well. Otherwise, remains independent in ADLs, household response builders, finances, and medication. Continues to drive although largely restricts this to in-town familiar destinations. Less comfortable traveling out of town. Has become less physically active as well. Socially more homebody. Good sleep quality overall with minimal snoring. Pain complaints include general aches and pains and feeling much slower. No prior neurological history. MoCA 26/30. Recent brain MRI nonacute with right frontal lobe meningioma without mass effect. Family neurological history includes dementia (olderbrother) as is. Psychiatric history notable for depression and anxiety. No history of alcohol/substance abuse. Reformed smoker. [place] language Romanian. Completed high school education. 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 He has one child. MEDICAL HISTORY/MEDICATION: No past medical history on file. MEDICATIONS: Current Outpatient Medications Medication Instructions co-enzyme Q-10 60 mg, Daily cyanocobalamin (VITAMIN B-12) 1,000 mcg, Daily donepezil (ARICEPT) 5 mg, Oral, Nightly finasteride (PROSCAR) 5 mg, Daily niacinamide 100 mg, 2 times daily with meals simvastatin (ZOCOR) 40 mg, Nightly tiotropium (Spiriva) 18 MCG inhalation capsule 1 capsule, Daily RT valACYclovir (VALTREX) 500 mg, Daily venlafaxine (EFFEXOR) 75 mg, Daily INITIAL IMPRESSION AND PLAN: Memory loss, word finding difficulty, and anxiety with depression: The patient will be scheduled for neuropsychological assessment, which will include tests for memory, reasoning, language, problem-solving, attention, and mood. Thank you for allowing me to participate in the care of this individual. Please contact me with [employer] at [phone]. documented in this encounterTexas County Memorial [id number] History of Present illness Narrative* Génesis Hodges, ALEJANDRINA - 06/16/2024 1:40 PM EDT Images from the original note were not included. Chief Complaint Patient presents with Hospital Follow-up Memory Loss Vertigo Subjective Jb Vail is a 78 y.o. male. History of Present Illness The patient presents today for a post-hospital follow-up appointment. He is accompanied by his , Helga. He was hospitalized at [facility] from 05/28/2024 to 05/29/2024. The patient initially presented to [facility] ([facility]) ED on 05/27/2024 due to severe, episodic dizziness and imbalance which had started approximately 1-2 days prior to admission. Onset was gradual. The patient states his dizziness was aggravated by standing up and could last minutes to hours. The patient's also states the patient was more confused than normal at the time. Per review of records, CTA of the head at [facility] revealed no acute intracranial abnormality, and CTA revealed 50% stenosis of the left common carotid artery at the left bulb with less than 50% stenosis of the right bulb. The patient was transferred to [facility] for further evaluation due to the MRI machine not working at [facility]. He was seen by Dr. Stewart (neurology) while inpatient and had an MRI of the brain completed which did not identify stroke or any alternative acute cause for his symptoms. He was suspected to have BPPV and was discharged home with vestibular rehab services. The patient has completed some vestibular therapy and states his symptoms have improved. He states, it's been a while since I've had it, when asked about any vertigo, dizziness, imbalance, or nausea. However, he cannot provide a definitive date as to when these may have resolved. He denies falls,syncope, double vision, or swallowing difficulty. The patient also reports some memory difficulty with onset years ago. He believes his memory has progressively worsened over time. He does not tend to repeat questions but reports intermittent difficulty with word retrieval and recall of names. states the patient's memory can sometimes be, sharp. She states the patient does have significant anxiety but is able to stay busy in the [place], so it is not as bad. The patient sleeps well and feels well rested upon waking. He denies snoring orapneic episodes while asleep. He stays well hydrated. He reports a positive family history of late-onset dementia in his brother and father. He is independent with all ADLs and denies any difficulty w ith these. He drives but only for close distances and denies getting lost. His assists him with medication management. He denies hallucinations, delusions, or wandering. They deny any further new concerns. Review of Systems Constitutional: Negative for appetite change, chills, fatigue, fever and unexpected weight change. HENT: Negative for trouble swallowing and voice change. Eyes: Negative for visual change, double vision or loss of vision Respiratory: Negative for cough, shortness of breath and wheezing. Cardiovascular: Negative for chest pain and palpitations. Gastrointestinal: Negative for abdominal pain, blood in stool, nausea and vomiting. Musculoskeletal: Negative for arthralgias, gait problem and myalgias. Neurological: Positive for weakness (mild, generalized) and light-headedness. Negative for dizziness, tremors, seizures, syncope, facial asymmetry, speech difficulty, numbness and headaches. Positive for memory difficulty Psychiatric/Behavioral: Positive for confusion. Negative for hallucinations, self-injury and suicidal ideas. The patient is nervous/anxious. Home Medication List co-enzyme Q-10 30 MG capsule cyanocobalamin 1000 MCG tablet; Commonly known as: Vitamin B-12 donepezil 5 MG tablet; Commonly known as: Aricept; TAKE 1 TABLET BY MOUTH AT BEDTIME finasteride 5 MG tablet; Commonly known as: Proscar niacinamide 100 MG tablet simvastatin 40 MG tablet; Commonly known as: Zocor tiotropium 18 MCG inhalation capsule; Commonly known as: Spiriva valACYclovir 500 MG tablet; Commonly known as: Valtrex venlafaxine 75 MG tablet; Commonly known as: Effexor Past Medical History: Diagnosis Date Basal cell carcinoma of skin Cervical spinal stenosis COPD (chronic obstructive pulmonary disease) (CMS/HCC) DDD (degenerative disc disease), lumbar History of measles, mumps, or rubella Hyperlipidemia (CMS/HCC) Irritable bowel syndrome with predominant constipation Spastic colon Past Surgical History: Procedure Laterality Date ADENOIDECTOMY CERVICAL SPINE SURGERY anterior discectomy and cervical fusion for severe cervical spinal stenosis at C5-C6 COLONOSCOPY CYSTOSCOPY ESOPHAGOGASTRODUODENOSCOPY LUMBAR SPINE SURGERY lumbar laminectomy TONSILLECTOMY TRANSURETHRAL RESECTION OF PROSTATE Family History Problem Relation Name Age of Onset Cancer Father Heart disease Father Kidney disease Sister Heart disease Brother Heart failure Brother Social History Tobacco Use Smoking status: Former Types: Cigarettes Smokeless tobacco: Never Substance Use Topics Alcohol use: Not on file Allergies: Penicillins and Sulfa antibiotics Vitals: 06/16/24 1333 BP: 114/64 Body mass index is 23.18 kg/m . weight: 157 lb Neurologic exam: Mental status and general appearance: Awake and alert with unlabored respirations. Oriented to person, place, and time. Recent and remotememory are generally intact. Speech is clear and fluent without aphasia. Speech is non-dysarthric. Attention and concentration are normal. Fund of knowledge is appropriate for level of education. Pleasant. Anxious-appearing. Cranial nerves: CN II: Visual acuity is normal. Visual hensley full to confrontation. CN III, IV, : Pupils are equal, round, and reactive to light. Extraocular movements intact. No ptosis present. CN V: Facial sensation is normal. CN VII: Full and symmetric facial movement. CN VIII: Hearing is normal to finger rub bilaterally. CN IX and X: Palate elevates symmetrically. CN XI: Shoulder shrug is normal bilaterally. CN XII: Tongue is midline without atrophy or fasciculation. Motor: RUE strength deltoid , biceps , triceps , wrist extensors , wrist flexor , and algology teacher strength 5/5. LUE strength deltoid , biceps , triceps , wrist extensors , wrist flexor , and algology teacher strength 5/5. RLE strength iliopsoas, quadriceps, tibialis anterior, and plantar flexion strength 5/5. LLE strength iliopsoas, quadriceps, tibialis anterior, and plantar flexion strength 5/5. Tone and bulk are normal. Sensory: Sensation is intact to light touch throughout all four extremities. Sensation is intact to temperature in all extremities. Reflexes: RUE biceps reflex 2+ , brachioradialis reflex 2+. LUE biceps reflex 2+ , brachioradialis reflex 2+. RLE knee reflex 2+. LLE knee reflex 2+. Coordination: [id number] testing normal. Rapid alternating movements are normal. Gait: Steady. Review and summary of old records: I reviewed discharge paperwork from the patient's hospitalization at [facility]. The patient was hospitalized from 05/28/2024 to 05/29/2024. He initially presented to the [facility] Emergency Department with severe dizziness and was transferred to [facility]. MRI of the brain on 05/28/2024 identified noacute intracranial abnormality. MRI of the brain without contrast at [facility] on 05/28/2024: 6 mm signal abnormality identified in the lateral portion of the right frontal lobe. This appears to be an extra-axial location. This may correspond with a meningioma. This is likely an incidental finding. May consider follow up assessment with contrasted MRI of the brain. No acute vascular distribution infarction is identified. Diffuse atro phy and chronic small-vessel ischemic changes. MOCA score on 04/26/2024: 20/30. MOCA from 07/30/2021: 30 with 2/5 recall. MRI brain shows age consistent atrophy and chronic small vessel ischemic changes. MOCA score on 08/09/2020: 23/30 with 2/5 recall. Vitamin B12 491. MRI of the cervical spine on 11/21/2005 (per [facility] chart review): Status post ventral spinal fusion at C5-6. Localized cord atrophy and abnormal increased signal intensity on T2 imaging within the cord at the C5-6 disc interspace level. This is likely related to myelomalacia related to a prior cord contusion or other type injury. I do not see any evidence of enhancement to suggest demyelination. There is an associated posterior right paracentral osteophytic spur which results in moderate narrowing of the canal at this level. Milder to moderate central canal stenosis secondary to degenerative changes at C4-5. Multilevel facet arthropathy and degenerative disc disease. Multilevel neural foraminal narrowing related to degenerative changes as described above. Assessment/Plan Diagnoses and all orders for this visit: Vertigo Mr. Vail is a 78-year-old male who presented to the [facility] ED and was then transferred to [facility] in early May 2024 for acute onset vertigo involving episodic dizziness andimbalance. The patient did also have a history of intermittent vertigo prior to this and reports vestibular therapy effectively improving his symptoms. MRI of the brain completed on 05/28/2024 did not identify any central etiology to explain his symptoms. Per hospital paperwork, CTA revealed 50% stenosis of the left common carotid artery at the left bulb with less than 50% stenosis of the right bulb. I believe the patient's symptoms could be secondary to a peripheral process such as BPPV. They have significantly improved with vestibular rehab and have not occurred in the past few days. PLAN: - I encouraged the patient to continue vestibular rehab and/or home vestibular therapy exercises - Ensure adequate hydration Abnormal finding on MRI of brain MRI of the brain on 05/28/2024 identified a 6 mm signal abnormality in the lateral portion of the right frontal lobe thought to possibly represent a meningioma. PLAN: - We will plan to repeat MRI of the brain w and wo contrast in August 2024 for further surveillance and monitoring of this lesion. I made the patient and his aware of this plan and educated them on the presence of the 6 mm lesion which will require further follow-up Cognitive impairment The patient reports subjective memory difficulty dating back at least 5+ years with progressive worsening but at a slow pace. He remains independent with all ADLs. However, he does notice some difficulty with recall of names, word retrieval, and short-term memory which are bothersome to him. There is a positive family history of late-onset dementia in the patient's father and brother, and this causes the patient a lot of anxiety, as he wonders if he will develop it too. I believe the patient's cognitive dysfunction is most likely secondary to mild cognitive impairment (MCI) versus possible pseudodementia from suboptimally managed anxiety. He seems to sleep well and denies any fatigue, snoring, or apneic episodes while asleep to suggest GLORIA. PLAN - Continue donepezil 5 mg by mouth daily at bedtime - Referral for neuropsychological evaluation to help determine the severity and most likely etiology of the patient's cognitive impairment. Hopefully, this will help us guide treatment - I recommended ensuring adequate sleep (at least 8 hours per night), healthy diet such as the Mediterranean diet, regular exercise as tolerated, brain stimulating activities, and participation in lifelong learning - to continue to assist with medication management - Follow up closely with primary care provider for aggressive treatment of anxiety Cervical myelopathy (CMS/HCC) History of cervical spinal stenosis with compressive myelopathy status post decompressive surgery. Diagnosis and treatment options discussed in detail. All questions answered. The patient and his verbalize understanding and are agreeable to the plan. Discussion in layman's terms. Follow up in the office within 1 to 2 months; sooner if needed for new or worsening symptoms. Génesis Hodges NP [facility] documented in this [facility]03-26-2025 Instructions* Patient Instructions* Génesis Hodges NP - 06/16/2024 1:40 PM EDT - Referral for neuropsychological evaluation documented in this [facility]03-08-2025 [place] [address] Neurology Consult Note Signed Patient: Jb Vail MR#: [id number] : 1945 Acct:[id number] Age/Sex: 78 / M Adm Date: 5 Loc: Room: [address] [place] [address] Type: ADM INOo Attending Dr: Se Starkey DO Copies to: DO Keith Grimes DO Kristopher L Lindbloom, DO~ HPI Consult Date: 05/29/24 [employer] Correspondent: Azael Stewart DO [facility] Medical History Abdominal pain History of measles, mumps, or rubella History of chicken pox Spastic colon Irritable bowel syndrome with constipation Degenerative disc disease, lumbar History of basal cell carcinoma (BCC) of skin ear and neck 2014 COPD (chronic obstructive pulmonary disease) Hypercholesteremia Surgical History History of surgery finger, 1975 History of urologic surgery TRUS w/Bx 08-07-10 Cysto 03/30/10 Cysto, TURP 12-26-11 Urodynamics 11-11-11 History of tonsillectomy and adenoidectomy History of colonoscopy 08/22/2021 Dr. Puente, Normal History of esophagogastroduodenoscopy (EGD) 08/22/2021 Dr. Puente Previous back surgery H/O neck surgery H/O elbow surgery 2016 Right Elbow, Dr. Brock Family History Sister Kidney disease Brother Cardiovascular disease Father Cardiovascular disease Brother Heart disease Legacy FamHx Relation: Brother(s) Congestive heart failure Legacy FamHx Relation: Brother(s) Father Cancer Legacy FamHx Problem: Diagnosed with Cancer Father Cancer Grandparent Legacy FamHx Relation: Maternal Grand Father Cancer Legacy FamHx Relation: Maternal Grand Father; Legacy FamHx Problem: Diagnosed with Cancer Grandparent Legacy FamHx Relation: Maternal Grand Mother Grandparent Heart disease Legacy FamHx Relation: Paternal Grand Father Legacy FamHx Relation: Paternal Grand Father Grandparent Legacy FamHx Relation: Paternal Grand Mother Grandparent Cancer Legacy FamHx Relation: Maternal Grand Father Grandparent Heart disease Legacy FamHx Relation: Paternal Grand Father Mother Son Cancer Legacy FamHx Problem: Diagnosed with Cancer Son Cancer Social History Smoking Status: Former smoker Substance Use Type: None Meds Medications and Allergies Allergies Penicillins Allergy (Unknown, Verified 04/14/24 08:18) Unknown Reaction, hives sulfacetamide Allergy (Unknown, Verified 04/14/24 08:18) hives Sulfa (Sulfonamide Antibiotics) Allergy (Verified 04/14/24 08:18) Unknown Reaction Home Medications coenzyme Q10 30 mg capsule (Co Q-10) 30 mg PO DAILY 08/21/21 [History Confirmed 04/14/24] finasteride 5 mg tablet 5 mg PO DAILY 08/21/21 [History Confirmed 04/14/24] albuterol sulfate 90 mcg/actuation aerosol inhaler (ProAir HFA) 2 inh [id number] 09/26/23 [History Confirmed 04/14/24] venlafaxine 75 mg capsule,extended release 24 hr 75 mg PO DAILY 10/14/23 [History Confirmed 04/14/24] valacyclovir 500 mg tablet (Valtrex) 500 mg PO DAILY cold sores 90 days #90 tabs 11/19/23 [Rx Confirmed 04/14/24] valacyclovir 1 gram tablet (Valtrex) 1,000 mg PO TID #21 tabs 01/20/24 [Rx Confirmed 04/14/24] fluticasone fur. 100 mcg-umeclid 62.5 mcg-vilant 25 mcg inhalat.powder (Trelegy Ellipta) [id number]/22/25 [History Confirmed 04/14/24] mecobalamin (vitamin B12) 1,000 mcg chewable tablet 1,000 mcg PO .COMPLEX 04/14/24 [History Confirmed 04/14/24] doxycycline hyclate 100 mg capsule 100 mg PO BID 10 days #20 caps 04/26/24 [Rx] simvastatin 40 mg tablet See Rx Instructions .Route .COMPLEX #90 tabs 05/26/24 [Rx] Exam Physical Exam Vital Signs: Temp Pulse Resp BP Pulse Ox O2 Del Method 97.5 F L 62 16 121/71 95 Room Air 05/29/24 08:00 05/29/24 08:00 05/29/24 08:00 05/29/24 08:00 05/29/24 08:00 05/29/24 08:00 Results - Neuro Laboratory Findings 05/29/24 05:45 Assessment/Plan (1) Peripheral vertigo: Qualifiers: Laterality: unspecified laterality Qualified Code(s): H81.399 - Other peripheral vertigo, unspecified ear Plan CONSULT REASON: Dizziness HPI: 78-year-old man. Yesterday he woke up from a nap and thought he felt something pop in his head and had dizziness. I think he describes a bit of palinopsia. He went to the [facility] emergency department. CT head there was said to be without acute findings. CTA reportedly showed 50% stenosis of the left common carotid artery at the left bulb and less than 50% at the right bulb. They called me to discuss his case. They described as vertigo. I told him they need MRI and wanted them to get it there at [facility]. They said they would not have MRI over the weekend but it was Friday afternoon. The patient was transferred here. He was recently diagnosed with dementia and started taking donepezil. He follows with Dr. Aguirre. In speaking with him and his it becomes clear that he has dealt with episodic vertigo in the past and has even had vestibular physical therapy. It is also clear that he is a very anxious man. He remarks multiple times about how his memory is getting poor. Home medications include finasteride, venlafaxine, valacyclovir, doxycycline, simvastatin. And the donepezil. EXAMINATION: In no distress. No deformities or trauma. Limbs seem well-perfused. No significant edema. Normal work of breathing. Visualized skin is generally intact and without lesions. Affect anxious and pressured. Patient is alert and generally oriented. Attention normal. Speech is fluent and nondysarthric. Pupils are equal and reactive. Ocular motility is full. No nystagmus. Facial sensation is normal. Hearing is normal. Facial strength is normal. Tongue is midline. Muscle bulk, tone, and strength are normal. No tremors. Light touch is intact. DATA REVIEW: -MRI brain is without any acute or concerning findings. Though there was no contrast with this study, there looks to be a meningioma that is 6 mm in diameter on the lateral convexity overlying the right frontal lobe. It does not appear to exerting mass effect or irritate the underlying cortex. ASSESSMENT: Vertigo that resolved. I believe this was peripheral vertigo, most likely BPPV. The MRI of his brain does not not offer any alternative explanation or cause for central vertigo. And he has had episodes of vertigo in the past that have required vestibular therapy. He now carries a diagnosis of dementia. No concerning findings on the MRI of his brain regarding this. He strikes me as being extremely anxious. I suspect there could be a significant amount of pseudodementia at play here. PLAN: 1. No other inpatient recommendations from my standpoint at this time 2. Follow-up with Dr. Aguirre in the outpatient setting 3. I recommend outpatient neuropsych testing 4. I would give strong consideration to starting medication aimed at depression/anxiety. He was a bit hesitant about this. They will discuss. He said that if neuropsych testing suggested it would be helpful then he would do whatever. Documented By: Azael Stewart DO 05/29/24 1133 Signed By: 05/29/24 1620 [facility]03-08-[address] [address] Discharge Summary Signed Patient: Jb Vail MR#: [id number] : 1945 Acct:[id number] Age/Sex: 78 / M Adm Date: 5 Loc: Room: [address] [place] [address]: Se Starkey DO Copies to: Casper Aguirre, DO Keith Atkinson,DO Se Starkey, ~ Providers Date of Discharge: 05/29/24 Discharging Provider: Se Starkey Primary Care Provider: Keith Atkinson Consults: 05/28/24 22:40 Consult to Neurology Routine Comment: Consulting Provider: Azael Stewart Reason For Exam: dizzy Has Provider Been Notified: Yes Date of Notification: 05/29/24 Time of Notification: 07:06 05/28/24 22:41 Consult to Occupational Therapy Routine Comment: Physician Instructions: Consult to OT for:: Evaluation and Treat Consult to Physical Therapy Routine Comment: Physician Instructions: Consult to PT for:: Evaluation and Treat Discharge Diagnosis (1) Vertigo: (2) BPPV (benign paroxysmal positional vertigo): (3) Dementia: Final Diagnosis Final Discharge Diagnosis: Acute positional vertigo, consistent with benign paroxysmal positional vertigo. Recent concern for diagnosis of dementia. Summary Hospital Course Hospital course: This is a 78-year-old man who presented to the [facility] emergency room with severe dizziness. A few weeks ago he was diagnosed as having some concerns for dementia. He had been started on Aricept. In the [facility] ER they tried a number of medicines and IV fluids but it did notimprove his dizziness. The patient had presented there on a Friday afternoon. The [facility] ER tried to arrange an MRI of the brain but found that it was impossible to MRI his brain or [facility] and that the MRI machine would not be rounding again until Friday, therefore they requested transfer over here to [facility]. Here at [facility] [place] of the brain was without acute findings. There is no posterior circulation stroke. There is evidence of a meningioma. The patient had neurology consultation by Dr. Azael Stewart. The patient has already been establishedin the neurology office with Dr. Casper Aguirre. The patient has undergone vestibular therapy before. Those Dylon maneuvers and vestibular therapies have been extremely successful and help the patient a lot. The patient's the bedside says that she has 6 more appointments available with the vestibular therapy team. I encouraged him to get back into 2 more vestibular therapy. Vertigo likethis is likely to wax and wane, but hopefully will improve over time. There is a concern that there may be a big component of pseudodementia to the patient's current clinical picture. His tells me that they are working to get into see the neuropsychologist. I defer to the primary care physician to see if medication and treatment for depression and/or anxiety may be helpful while he is going through this process Condition Condition at Discharge: Stable Status at Discharge Functional status at discharge: independent ambulation Overall status at discharge: patient is back to baseline Time Spent with Patient Time spent providing/coordinating discharge services (# min): 14 Discharge Plan Discharge Plan Patient Disposition: Home Activity: No Activity Restriction Diet: Regular Instructions: Know your Meds Prescriptions: Continued valacyclovir [Valtrex] 500 mg tablet 500 mg PO DAILY 90 Days Qty: 90 3RF doxycycline hyclate 100 mg capsule 100 mg PO BID 10 Days Qty: 20 0RF simvastatin 40 mg tablet See Rx Instructions .ROUTE .COMPLEX Qty: 90 3RF Dose Instruction: TAKE 1 TABLET BY MOUTH AT BEDTIME Rx Instructions: TAKE 1 TABLET BY MOUTH AT BEDTIME finasteride 5 mg tablet 5 mg PO DAILY Patient Comments: TAKE 1 TABLET BY MOUTH EVERY DAY coenzyme Q10 [Co Q-10] 30 mg Capsule 30 mg PO DAILY Trelegy Ellipta 100-62.5-25 mcg blister with device inhalation albuterol sulfate [ProAir HFA] 90 mcg/actuation HFA aerosol inhaler 2 inh inhalation Q4HR venlafaxine 75 mg capsule,extended release 24hr 75 mg PO DAILY mecobalamin (vitamin B12) 1,000 mcg tablet,chewable 1,000 mcg PO .COMPLEX Rx Instructions: 1,000 mcg orally 1 tablet Orally qd x6 days a week; valacyclovir [Valtrex] 1 gram tablet 1,000 mg PO TID Qty: 21 0RF Exam Physical Exam Vital Signs: Temp Pulse Resp BP Pulse Ox O2 Del Method 97.4 F L 85 18 130/71 97 Room Air 05/29/24 11:38 05/29/24 11:38 05/29/24 11:38 05/29/24 11:38 05/29/24 11:38 05/29/24 11:38 Narrative: Awake. Alert. Oriented x 3. Nursing staff observed the patient walk many laps in the hallway without obvious difficulty. Psychiatric: He is very hyperactive. He repeats himself a lot. He does look anxious. Pulmonary: Clear to auscultation throughout. No wheezing. No rhonchi. No crackles. Card: Regular rate and rhythm. No rubs or gallops to auscultation. Diagnostic Studies Completed and Pending Studies Pending studies at discharge: 05/28/24 22:41 [facility] echo transthoracic Routine Labs on day of discharge: 05/29/24 05:45: PHA Creatinine Clear 80.22, Sodium 136, Potassium 4.8, Chloride 105, Carbon Agtjjjq14.0, Anion Gap 7.8, BUN 16, Creatinine 0.68 L, Est GFR (CKD- EPI) > 60.0, Glucose 143 H, Calcium9.3 Documented By: Se Starkey DO 1503 Signed By: 05/29/24 1508 [facility]03-08-2025 History and physical note Author Marcela Keller [facility] DaytonNote Date/TimeMarch 2024 6:[place] [address] Hospitalist H&P Signed Patient: Jb Vail MR#: [id number] : 1945 Acct:[id number] Age/Sex: 78 / M Adm Date: 5 Loc: 3T Room: [address] [place] [address] Type: ADM IN Attending Dr: Se Starkey DO Copies to: Keith Atkinson,DO Se Starkey, DO Marcela Keller MD~ HPI DATE OF EXAMINATION: 05/28/24 HISTORY OF PRESENT ILLNESS: 78 years old was transferred from [facility] emergency room due to dizziness. Patient was recently diagnosed with dementia and started taking Aricept. Today he woke up from the nap and felt dizziness. [place] something pop in his head. Upon arrival to emergency room NIH was 0, CT scan of the head without acute findings. CTA showed 50% stenosis of left CCA, left bulb. Stenosis less than 50%, right bulb. Stenosis of approximately 50 to 60%, ICA patent, patent bilateral vertebral arteries, however plaques are noted at the origin of the left vertebral artery with stenosis of approximately 60% s. Emergency room physician discussed with Dr. Lim who would be happy to see in consultation Per patient he noted that his short term memory was getting worse within the last year. He also hasbeen complaining of some dizziness/vertigo for quite a while, but today it got worse so he got very scared. He woke up and he was verydizzy, spinning like sensation, also he complained of blurred vision no double vision, no vision loss, he knew that if he walks he will fall. He denies any headache. He did have some nausea but did not vomit. He denies any tingling numbness any focal weakness in extremities. Currently he is feeling significantly better. He feels that he will be able to walk without any difficulties. He denies any chest pain or palpitations any shortness of breath any syncopal episode. He denies any dysuria urgency frequency. Evaluation at [facility] showed EKG normal sinus without any ischemic changes with ventricular rate 80, QTc 418,with PVC noted 10 systems are reviewed and are negative apart as mentioned H&P General -patient is awake alert oriented ?3, does not appear to be in distress HEENT -normal oropharyngeal mucosa without any ulcers or exudates Cardiovascular -S1 plus S2, with regular rate, without any murmurs, gallops, rubs Pulmonary -clear to auscultation bilaterally Gastrointestinal -abdomen is soft, nondistended, nontender, bowel sounds positive, no rigidity, no rebound Musculoskeletal -no joint swelling Neurological -no facial asymmetry noted, pupils are equal and symmetrical, extraocular muscle intact, no nystagmus, motor function 5 out of 5 in upper and lower extremities, sensation 5 out of 5 in upper and lower extremities, finger to nose test performed well without any dysmetria, reflexes symmetrical bilaterally in lower extremities, speech is clear, no tremors noted, gait deferred Skin -no significant ulcers, no rash noted Extremities - no edema in bilateral lower extremities noted Psychiatry - appropriate affect Laboratory work up, imaging studies reviewed Previous records in the computer system reviewed [facility] Medical History Abdominal pain History of measles, mumps, or rubella History of chicken pox Spastic colon Irritable bowel syndrome with constipation Degenerative disc disease, lumbar History of basal cell carcinoma (BCC) of skin ear and neck 2014 COPD (chronic obstructive pulmonary disease) Hypercholesteremia Surgical History History of surgery finger, 1975 History of urologic surgery TRUS w/Bx 08-07-10 Cysto 03/30/10 Cysto, TURP 12-26-11 Urodynamics 11-11-11 History of tonsillectomy and adenoidectomy History of colonoscopy 08/22/2021 Dr. Puente, Normal History of esophagogastroduodenoscopy (EGD) 08/22/2021 Dr. Puente Previous back surgery H/O neck surgery H/O elbow surgery 2017 Right Elbow, Dr. Brock Family History Sister Kidney disease Brother Cardiovascular disease Father Cardiovascular disease Brother Heart disease Legacy FamHx Relation: Brother(s) Congestive heart failure Legacy FamHx Relation: Brother(s) Father Cancer Legacy FamHx Problem: Diagnosed with Cancer Father Cancer Grandparent Legacy FamHx Relation: Maternal Grand Father Cancer Legacy FamHx Relation: Maternal Grand Father; Legacy FamHx Problem: Diagnosed with Cancer Grandparent Legacy FamHx Relation: Maternal Grand Mother Grandparent Heart disease Legacy FamHx Relation: Paternal Grand Father Legacy FamHx Relation: Paternal Grand Father Grandparent Legacy FamHx Relation: Paternal Grand Mother Grandparent Cancer Legacy FamHx Relation: Maternal Grand Father Grandparent Heart disease Legacy FamHx Relation: Paternal Grand Father Mother Son Cancer Legacy FamHx Problem: Diagnosed with Cancer Son Cancer Social History Smoking Status: Former smoker Substance Use Type: None Meds Medications and Allergies Allergies Penicillins Allergy (Unknown, Verified 04/14/24 08:18) Unknown Reaction, hives sulfacetamide Allergy (Unknown, Verified 04/14/24 08:18) hives Sulfa (Sulfonamide Antibiotics) Allergy (Verified 04/14/24 08:18) Unknown Reaction Home Medications coenzyme Q10 30 mg capsule (Co Q-10) 30 mg PO DAILY 08/21/21 [History Confirmed 04/14/24] finasteride 5 mg tablet 5 mg PO DAILY 08/21/21 [History Confirmed 04/14/24] albuterol sulfate 90 mcg/actuation aerosol inhaler (ProAir HFA) 2 inh [id number] 09/26/23 [History Confirmed 04/14/24] venlafaxine 75 mg capsule,extended release 24 hr 75 mg PO DAILY 10/14/23 [History Confirmed 04/14/24] valacyclovir 500 mg tablet (Valtrex) 500 mg PO DAILY cold sores 90 days #90 tabs 11/19/23 [Rx Confirmed 04/14/24] valacyclovir 1 gram tablet (Valtrex) 1,000 mg PO TID #21 tabs 01/20/24 [Rx Confirmed 04/14/24] fluticasone fur. 100 mcg-umeclid 62.5 mcg-vilant 25 mcg inhalat.powder (Trelegy Ellipta) [id number]/22/25 [History Confirmed 04/14/24] mecobalamin (vitamin B12) 1,000 mcg chewable tablet 1,000 mcg PO .COMPLEX 04/14/24 [History Confirmed 04/14/24] doxycycline hyclate 100 mg capsule 100 mg PO BID 10 days #20 caps 04/26/24 [Rx] simvastatin 40 mg tablet See Rx Instructions .Route .COMPLEX #90 tabs 05/26/24 [Rx] Assessment & Plan Assessment/Plan (1) Vertigo: Plan 1. Vertigo/dizziness of unclear etiology doubt it is central neurological etiology CT scan of the head/CTA of the head and neck reviewed Will order MRI Consult neurology 2. Dementia, probably progressing 3. COPD, stable 4. DVT prophylaxis Lovenox IP vs OBS Justification Based on differential dx, clinical care plan, and risk of adverse events, if untreated, in my clinical judgement this patient requires an acute care setting as: OBSERVATION because of an expectation of an under 2 midnight stay. Estimated length of stay (# of days): 2 Documented By: Marcela Keller MD 05/28/242220 Signed By: <Electronically signed by Marcela Keller MD> 05/29/24 0711 [facility] Work Phone: [phone]) 968-618403-08-2025 [place] [address] Hospitalist H&P Signed Patient: Jb Vail MR#: [id number] : 1945 Acct:[id number] Age/Sex: 78 / M Adm Date: 5 Loc: Room: [address] [place] [address] Type: ADM IN Attending Dr: Se Starkey DO Copies to: Keith Atkinson,DO Se Starkey, DO Marcela Keller MD~ HPI DATE OF EXAMINATION: 05/28/24 HISTORY OF PRESENT ILLNESS: 78 years old was transferred from [facility] emergency room due to dizziness. Patient was recently diagnosed with dementia and started taking Aricept. Today he woke up from the nap and felt dizziness. [place] something pop in his head. Upon arrival to emergency room NIH was 0, CT scan of the head without acute findings. CTA showed 50% stenosis of left CCA, left bulb. Stenosis less than 50%, right bulb. Stenosis of approximately 50 to 60%, ICA patent, patent bilateral vertebral arteries, however plaques are noted at the origin of the left vertebral artery with stenosis of approximately 60% s. Emergency room physician discussed with Dr. Lim who would be happy to see in consultation Per patient he noted that his short term memory was getting worse within the last year. He also hasbeen complaining of some dizziness/vertigo for quite a while, but today it got worse so he got very scared. He woke up and he was verydizzy, spinning like sensation, also he complained of blurred vision no double vision, no vision loss, he knew that if he walks he will fall. He denies any headache. He did have some nausea but did not vomit. He denies any tingling numbness any focal weakness in extremities. Currently he is feeling significantly better. He feels that he will be able to walk without any difficulties. He denies any chest pain or palpitations any shortness of breath any syncopal episode. He denies any dysuria urgency frequency. Evaluation at [facility] showed EKG normal sinus without any ischemic changes with ventricular rate 80, QTc 418,with PVC noted 10 systems are reviewed and are negative apart as mentioned H&P General -patient is awake alert oriented ?3, does not appear to be in distress HEENT -normal oropharyngeal mucosa without any ulcers or exudates Cardiovascular -S1 plus S2, with regular rate, without any murmurs, gallops, rubs Pulmonary -clear to auscultation bilaterally Gastrointestinal -abdomen is soft, nondistended, nontender, bowel sounds positive, no rigidity, no rebound Musculoskeletal -no joint swelling Neurological -no facial asymmetry noted, pupils are equal and symmetrical, extraocular muscle intact, no nystagmus, motor function 5 out of 5 in upper and lower extremities, sensation 5 out of 5 in upper and lower extremities, finger to nose test performed well without any dysmetria, reflexes symmetrical bilaterally in lower extremities, speech is clear, no tremors noted, gait deferred Skin -no significant ulcers, no rash noted Extremities - no edema in bilateral lower extremities noted Psychiatry - appropriate affect Laboratory work up, imaging studies reviewed Previous records in the computer system reviewed [facility] Medical History Abdominal pain History of measles, mumps, or rubella History of chicken pox Spastic colon Irritable bowel syndrome with constipation Degenerative disc disease, lumbar History of basal cell carcinoma (BCC) of skin ear and neck 2014 COPD (chronic obstructive pulmonary disease) Hypercholesteremia Surgical History History of surgery finger, 1975 History of urologic surgery TRUS w/Bx 08-07-10 Cysto 03/30/10 Cysto, TURP 12-26-11 Urodynamics 11-11-11 History of tonsillectomy and adenoidectomy History of colonoscopy 08/22/2021 Dr. Puente, Normal History of esophagogastroduodenoscopy (EGD) 08/22/2021 Dr. Puente Previous back surgery H/O neck surgery H/O elbow surgery 2017 Right Elbow, Dr. Shine Family History Sister Kidney disease Brother Cardiovascular disease Father Cardiovascular disease Brother Heart disease Legacy FamHx Relation: Brother(s) Congestive heart failure Legacy FamHx Relation: Brother(s) Father Cancer Legacy FamHx Problem: Diagnosed with Cancer Father Cancer Grandparent Legacy FamHx Relation: Maternal Grand Father Cancer Legacy FamHx Relation: Maternal Grand Father; Legacy FamHx Problem: Diagnosed with Cancer Grandparent Legacy FamHx Relation: Maternal Grand Mother Grandparent Heart disease Legacy FamHx Relation: Paternal Grand Father Legacy FamHx Relation: Paternal Grand Father Grandparent Legacy FamHx Relation: Paternal Grand Mother Grandparent Cancer Legacy FamHx Relation: Maternal Grand Father Grandparent Heart disease Legacy FamHx Relation: Paternal Grand Father Mother Son Cancer Legacy FamHx Problem: Diagnosed with Cancer Son Cancer Social History Smoking Status: Former smoker Substance Use Type: None Meds Medications and Allergies Allergies Penicillins Allergy (Unknown, Verified 04/14/24 08:18) Unknown Reaction, hives sulfacetamide Allergy (Unknown, Verified 04/14/24 08:18) hives Sulfa (Sulfonamide Antibiotics) Allergy (Verified 04/14/24 08:18) Unknown Reaction Home Medications coenzyme Q10 30 mg capsule (Co Q-10) 30 mg PO DAILY 08/21/21 [History Confirmed 04/14/24] finasteride 5 mg tablet 5 mg PO DAILY 08/21/21 [History Confirmed 04/14/24] albuterol sulfate 90 mcg/actuation aerosol inhaler (ProAir HFA) 2 inh [id number] 09/26/23 [History Confirmed 04/14/24] venlafaxine 75 mg capsule,extended release 24 hr 75 mg PO DAILY 10/14/23 [History Confirmed 04/14/24] valacyclovir 500 mg tablet (Valtrex) 500 mg PO DAILY cold sores 90 days #90 tabs 11/19/23 [Rx Confirmed 04/14/24] valacyclovir 1 gram tablet (Valtrex) 1,000 mg PO TID #21 tabs 01/20/24 [Rx Confirmed 04/14/24] fluticasone fur. 100 mcg-umeclid 62.5 mcg-vilant 25 mcg inhalat.powder (Trelegy Ellipta) [id number]/22/25 [History Confirmed 04/14/24] mecobalamin (vitamin B12) 1,000 mcg chewable tablet 1,000 mcg PO .COMPLEX 04/14/24 [History Confirmed 04/14/24] doxycycline hyclate 100 mg capsule 100 mg PO BID 10 days #20 caps 04/26/24 [Rx] simvastatin 40 mg tablet See Rx Instructions .Route .COMPLEX #90 tabs 05/26/24 [Rx] Assessment & Plan Assessment/Plan (1) Vertigo: Plan 1. Vertigo/dizziness of unclear etiology doubt it is central neurological etiology CT scan of the head/CTA of the head and neck reviewed Will order MRI Consult neurology 2. Dementia, probably progressing 3. COPD, stable 4. DVT prophylaxis Lovenox IP vs OBS Justification Based on differential dx, clinical care plan, and risk of adverse events, if untreated, in my clinical judgement this patient requires an acute care setting as: OBSERVATION because of an expectation of an under 2 midnight stay. Estimated length of stay (# of days): 2 Documented By: Marcela Keller MD 05/28/242220 Signed By: 05/29/24 0711 [facility]02-03-2025 History of Present illness Narrative * Casper Aguirre, - 04/26/2024 9:00 AM EST Images from the original note were not [...] still driving and declines any issues with thisand denies ever getting lost. Patient is independent in all ADL's. Patient admits he sleeps well atnight, at least 8 hours. He states he has been sleeping more lately. He admits to some vivid dreamsbut denies hallucinations. He does admit to some [...] , wrist extensors , wrist flexor , algology teacher strength 5/5. LUE Strength deltoid , biceps , triceps , wrist extensors , wrist flexor , algology teacher strength 5/5. RLE Strength illopsoas, quadriceps, tibialis [...] reflex 2+ . Ley's sign negative. Coordination: Rybttt-wn-hdiz testing and rapid alternating movements are normal Gait: Normal Review and summary of old records: MOCA on 04/26/24: MOCA from 07/30/21: with 2/5 recall MRI brain shows age consistent atrophy and chronic small vessel ischemic changes MOCA testing from August 09, 2020 was with 04/28 recall B12 491. Assessment/Plan Diagnoses and all [...] is well controlled on venlafaxine Cervical myelopathy (CMS/HCC) History of cervical spinal stenosis with compressive myelopathy status post decompressive surgery. Pt has been fully educated on their diagnosis, lab results, treatment options, follow up plan, and return instructions documented in this encounterTexas County Memorial [id number] Evaluation note* Author Keith Atkinson [facility] DaytonAuthoredJanuary 2024 10:36amThe above note written by __Trini Deshpande____ acting as human recorder, note dictated by Dr. Esparza .I performed the above HPI, ROS, and Examination. I formulated and dictated the treatment plan and was present for entire encounter. Keith Atkinson D.O. [facility] Work Phone: 1([phone]) 386-104411-18-2024 NotePatient Education Urology Benign Prostatic Hyperplasia Benign prostatic hyperplasia (BPH) is an enlarged prostate gland that is caused by the normal agingprocess. The prostate may get bigger as a man gets older. The condition is not caused by cancer. The prostate is a walnut-sized gland that is involved in the production of semen. It is located in front of the rectum and below the bladder. The bladder stores urine. The urethra carries stored urine ou t of the body. An enlarged prostate can press on the urethra. This can make it harder to pass urine. The buildup of urine in the bladder can cause infection. Back pressure and infection may progress to bladder damage and kidney (renal) failure. What are the causes? This condition is part of the normal aging process. However, not all men develop problems from thiscondition. If the prostate enlarges away from the [...] this procedure, a tool is inserted through theopening at the tip of the penis (urethra). [...] procedure uses radio frequencies to destroy and removea small amount of prostate tissue. ? Interstitial laser coagulation (ILC). This procedure uses a laser to destroy and remove a small amount of prostate tissue. ? Transurethral electrovaporization (TUVP). This procedure uses electrodes to destroy and remove a small amount of prostate tissue. ? Prostatic urethral lift. This procedure inserts an implant to push the lobes of the prostate awayfrom the urethra. Follow these instructions at home: ??? Take uxbl-kia-dqluhbp and prescription medicines only as told by [...] symptoms do not get (more content not included)...[facility]10-29-2024 Evaluation note* Author Keith Atkinson [facility] DaytonAuthoredOctober 2023 9:22amThe above note written by ___Sarah Deshpande____ acting as human recorder, note dictated by Dr. Esparza .I performed the above HPI, ROS, and Examination. I formulated and dictated the treatment plan and was present for entire encounter. Keith Atkinson D.O. [place] Work Phone: 1([phone]) 526-337109-25-2024 Evaluation note* Author Keith Atkinson [facility] DaytonAuthoredSeptember 2023 3:26pmThe above note written by ___Sarah Deshpande____ acting as human recorder, note dictated by Dr. Esparza .I performed the above HPI, ROS, and Examination. I formulated and dictated the treatment plan and was present for entire encounter. Keith Atkinson D.O. [place] Work Phone: 1([phone]) 634-403907-23-2024 Evaluation note* Author Keith Atkinson [facility] DaytonAuthoredJuly 2023 9:02amThe above note written by ___Sarah Deshpande____ acting as human recorder, note dictated by Dr. Esparza .I performed the above HPI, ROS, and Examination. I formulated and dictated the treatment plan and was present for entire encounter. Keith Atkinson D.O. [place] Work Phone: 1([phone]) 135-157901-16-2024 Evaluation note* Encounter Date Diagnosis Assessment Notes Treatment Notes Treatment Clinical Notes Mar, Hyperlipidemia (ICD-10 - E78.5) Discussed cholesterol results with patient today. Total is 182. HDL is 64. LDL is 103. Triglycerides are 79. VLDL is 15.8. I would like him to continue with the same dose of Simvastatin. Continue to monitor his intake of carbs and sugars. Mar,OPD (chronic obstructive pulmonary disease) (ICD-10 - J44.9)He voices that his breathing is all right [...] He voices that he will do this becauseit is right next to his coffee which he drinks every day. The Albuterol is only an as needed inhaler, he can use this 15 min prior to shoveling or mowing or if needed. He was asked to keep me posted with how he is doing by three months. If he begins mowing grass again and he feels like his chest istight or he has chest pain he is to let me know so we can discuss a cardiac work up. Right now he declines any cardiac work up. Mar,Hyperglycemia (ICD-10 - R73.9)Discussed blood sugar results with patient today. Glucose is 103. HgA1C is 5.7. I would like him tocontinue to monitor his intake of carbs and sugars. Stay active as tolerated. Mar,nemia (ICD-10 - D64.9)He has returned to taking B12. His B12 is 798.0. His Folate is 13.50. I would like him to continue to take the B12 as directed. His hemoglobin last year (2022) was 14.3 and in the summer (10/13) it was down to 12.9 and once he returned to taking the B12 it has now gone up to 14.5 which is good. Mar,Weight gain (ICD-10 - R63.5)He has put some weight on since he was last seen. Mar,Memory difficulty (ICD-10 - R41.3) Mar,bnormal thyroid blood test (ICD-10 - R94.6)His TSH is 2.430. Mar,nxiety and depression (ICD-10 - F41.8)He does continue with above medication daily as directed. Mar,PH (benign prostatic hyperplasia) (ICD-10 - N40.0)Continue with above medication daily as directed. Mar,cid reflux (ICD-10 - K21.9)Continue with above medication daily as directed. Mar,Other residential (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 therapy (ICD-10 - Z79.899) [facility] Other 12-18-2023 Evaluation note* Encounter Date Diagnosis Assessment Notes Treatment Notes Treatment Clinical Notes Feb, COPD (chronic obstructive pulmon alicia disease) (ICD-10 - J44.9) [facility] Other 09-28-2023 Hospital Discharge instructions Follow Up Care 12/19/2022 14:25:52 With:DAVE SELF, Sanjuanita Bills, URL Address: [facility] [address], [place] [address]- When:Within 1 Year(s) Comments:w/PSA [facility] 09-07-2023 Evaluation note* Encounter Date Diagnosis Assessment Notes Treatment Notes Treatment Clinical Notes Nov, Anxiety and depression (ICD-10 - F41.8) [facility] Other 07-11-2023 Evaluation note* Encounter Date Diagnosis Assessment Notes Treatment Notes Treatment Clinical Notes Sep, Hyperlipidemia (ICD-10 - E78.5) Discussed cholesterol results with patient today. Total is 154. HDL is 57. LDL is 82. Triglyceridesare 75. VLDL is 15. Readings are at goal. He is to continue with above medication daily as directed. Sep,OPD (chronic obstructive pulmonary disease) (ICD-10 - J44.9)He has tried using the inhaler prior to mowing and it is not helping him while he mows, he continues to get short of breath and has to take breaks during mowing. I did recommend that he see a feed manager, and he refuses. He states that he does not feel that he is that bad . 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 His voices that he does not use the Spiriva as directed. We discussed that there are newer medications that can be used to treat his COPD, but they should be given by a feed manager. He only uses the Spiriva as needed. I did explain to him that the Spiriva will only benefit him if he uses this daily. He should use the ProAir as his rescue inhaler and 15 min prior to mowing the lawn. He voices that he will begin using the Spiriva daily and see how he does.It may take up to one month for him to see the effects of the medication. Sep,nemia (ICD-10 - D64.9)We discussed that his hemoglobin is lower at 12.9 which will not help his ability to breath. His B12 is 472. Folate is 8.4. He admits that he is not taking his B12 at all. I did recommend that he take this every day. Sep,Shortness of breath (ICD-10 - R06.02)He voices that his shortness of breath has been coming but is getting worse. He does have to stopwhen he is doing things and take a break and then can finish what he is doing. Sep,hest pain (ICD-10 - R07.9)He voices that he is doing bad now. He comes in after mowing grass and is breathing heavy. He haschest pain at bedtime. It occurs mostly after he has been sleeping on one side, if he rolls over tothe other side it resolves. He has a [...] I did recommend that he see a driveway attendant for evaluation to discuss what has been going on and determine what testing needs to be done. He refuses. He does not want the hassle of going to the driveway attendant. He states that when he hits the [...] like to wait to have this done. Sep,Hyperglycemia (ICD-10 - R73.9)Discussed blood sugar results with patient today. Glucose is 111. HgA1C is 5.2 which is normal. Sep,Weight loss (ICD-10 - R63.4)He has lost six pounds since last seen. [...] scale for at least the last year. Sep,PH (benign prostatic hyperplasia) (ICD-10 - N40.0)He should continue to follow with Dr. Acosta as directed. He voices that he will see Dr. Acosta this month for the last time. I asked him to have Dr. Acosta put in writing what he recommends moving forward and send us the office note. Sep,onstipation (ICD-10 - K59.00)Continue with above medication as directed. Sep,cid reflux (ICD-10 - K21.9)Continue with above medication daily as directed. Sep,nxiety and depression (ICD-10 - F41.8)Continue with above medication daily as directed. 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 Apr,OPD (chronic obstructive pulmonary disease) (ICD-10 - J44.9)We discussed that the inhalers can cause stomatitis or ulcers in the mouth. He does not rinse his mouth after he uses the medication. He voices that he did return to using the inhalers a few months ago. He does get some shortness of breath in the mornings but it could happen during the day as well.I did recommend that he rinse his mouth out after he uses his inhalers. He has a sulfa allergy, but voices that he used Spiriva before and never had an issue with the medication. Apr,Stomatitis (ICD-10 - K12.1)He voices that the sore in the bottom [...] when he is seen in one month. [facility] Other 01-13-2023 Evaluation note* Encounter Date Diagnosis Assessment Notes Treatment Notes Treatment Clinical Notes Mar, COPD (chronic obstructive pulmon alicia disease) (ICD-10 - J44.9) [facility] Other 01-05-2023 Evaluation note* Encounter Date Diagnosis Assessment Notes Treatment Notes Treatment Clinical Notes Mar, Hyperlipidemia (ICD-10 - E78.5) Discussed cholesterol results with patient today. Total is 188. HDL is 65. LDL is 107.6. Triglycerides are 77. VLDL is 15.4. I would like him to continue to monitor his intake of carbs and sugars. Stay active. Continue with above medication daily. Mar,Hyperglycemia (ICD-10 - R73.9)Discussed blood sugar results with patient today. Glucose is 114. HgA1C is normal at 5.4. He is to continue to monitor his intake of carbs and sugars. 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 It could be his lungs that are the issue and not his heart. He did havea PFT done almost three years ago which was also reviewed today. This showed that his lungs were not moving the air as well as they should but he had a good response to the medication. He is going touse his ProAir inhaler in the spring prior to mowing grass and will see if this helps him get through. He refuses any further testing at this time. Mar,nemia (ICD-10 - D64.9)He does continue to take B12. His Vitamin B12 level is 1002.0. Folate is 16.0. At this time I wouldlike him to decrease his B12 to six days a week instead of seven days. Mar,OPD (chronic obstructive pulmonary disease) (ICD-10 - J44.9)He does not use his inhaler as much as he should. We discussed his PFT which showed a good responseto the medication, I did recommend that he use the ProAir prior to when he mows the lawn in the spring. Anticipate that he would be able to walk further and mow without stopping like he had to last summer. He should use the ProAir before he does anything with exertion. He can use the rescue inhalerevery four hours. He voices that he will try this in the spring. Mar,nxiety and depression (ICD-10 - F41.8)Continue with above medication as directed. Mar,PH (benign prostatic hyperplasia) (ICD-10 - N40.0)He continues to follow with Dr. Acosta as scheduled. Mar,cid reflux (ICD-10 - K21.9)Continue with above medication daily as directed. Mar,Weight gain (ICD-10 - R63.5)His TSH is normal at 1.754. 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 He does not wake up gasping forair. I did explain to him that this is a sign of sleep apnea. If he is watching TV he is able to stay awake. For now this is something that we will continue to monitor. Mar,Memory difficulty (ICD-10 - R41.3)In the fall of 2021 he was seen [...] neurology in six months (around July 2022). Mar,old sore (ICD-10 - B00.1)He voices that the sores on his lip are improved, he currently has a small one on his lip but it ishealing. [facility] Other 07-18-2022 Hospital Discharge instructions Patient Education [...] have oneof these risk factors: ?Being of -[place] descent. ?Having a family history of prostate [...] you: Are older than age 55. Are -[place]. Have a father, brother, or uncle who [...] 12/19/2017 Document Revised: 02/20/2018 Document Reviewed: 12/19/2017 [employer] Patient Education 2020 [employer]. Follow Up Care 07/25/2021 09:55:06 With:DAVE SELF, Sanjuanita Bills, ROSEL Address: [facility] [address], [place] [address] [phone] When:10/08/2022 [facility] 06-23-2022 Evaluation note* Encounter Date Diagnosis Assessment Notes Treatment Notes Treatment Clinical Notes Aug, Hyperlipidemia (ICD-10 - E78.5) Discussed cholesterol results with patient today. Total is 169. HDL is 70. LDL Is 90.4. Triglycerides are 43. Readings are at goal. He is to continue with above medication daily. Continue watching diet to include intake of carbs and sugars. Stay active. Aug,Hyperglycemia (ICD-10 - R73.9)Discussed blood sugar results with patient today. Glucose is 110. HgA1C is down from 5.6 to 5.4 which is normal. Aug,nemia (ICD-10 - D64.9)We discussed that his HGB has gone down from 14.4 to 13.9. B12 is 620. Folate is 7.8. I would like him to continue with the Vitamin B12 as directed. 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 He is inthe sun alot and feels this could have contributed to this recent outbreak. He has been using Abreva but this is costly and it has not been helping. He has taken the Valtrex orally and it does not seem to be helping either. I did explain to him that beyond that he should see a milling operator. He should wear a wide brimmed hat, and wear a chapstick with SPF to protect this area from the sun. If he wants to see a milling operator he should let me know. If he has one particular sore that does not healor bleeds he must see dermatology. Aug,nxiety and depression (ICD-10 - F41.9)He does continue to use and benefit from the above medication. Aug,PH (benign prostatic hyperplasia) (ICD-10 - N40.0)Continue with above medication and follow with Dr. Acosta as directed. Aug,bnormal thyroid blood test (ICD-10 - R94.6)His TSH is normal at 1.463. Aug,OPD (chronic obstructive pulmonary disease) (ICD-10 - J44.9) Continue with above medication as directed. Aug,onstipation (ICD-10 - K59.00)Continue with above medication as needed. Aug,Long term use of drug (ICD-10 - Z79.899) Aug,Memory difficulty (ICD-10 - R41.3)He voices that he does follow with Dr. Stewart but is not sure when his next appointment is. Aug,cid reflux (ICD-10 - K21.9)He does continue with above medication daily as directed. Aug,therHe voices that the Metronidazole did not agree with him so he stopped taking it. He voices that he had a colonoscopy done and nothing was found. [facility] Other 03-14-2022 Evaluation note* Encounter Date Diagnosis Assessment Notes Treatment Notes Treatment Clinical Notes May, COPD (chronic obstructive pulmon alicia disease) (ICD-10 - J44.9) [facility] Other 02-16-2022 Evaluation note* Encounter Date Diagnosis Assessment Notes Treatment Notes Treatment Clinical Notes Apr, Constipation (ICD-10 - K59.00) RTO 4-6 WEEKS Apr,bdominal pain (ICD-10 - R10.9) Apr,Nausea (ICD-10 - R11.0) [facility] Other 01-12-2022 Evaluation note* Encounter Date Diagnosis [...] to rest and listen to his body. Mar,cute sinusitis (ICD-10 - J01.90) He would like to be treated with an antibiotic for sinus symptoms that he currently has. I will provide him with above medication. He is to eat yogurt daily while on ATB to prevent GI upset. Rest, push fluids. Avoid the sun due to sun sensitivity. Mar,ther1:52 PM - 1:58 PM [facility] Other 01-04-2022 Evaluation note* Encounter Date Diagnosis Assessment Notes Treatment Notes Treatment Clinical Notes Mar, Fatigue (ICD-10 - R53.83) Mar,Exposure to COVID-19 virus (ICD-10 - Z20.828) [facility] Other 12-21-2021 Evaluation note* Encounter Date Diagnosis Assessment Notes Treatment Notes Treatment Clinical Notes Feb, Hyperlipidemia (ICD-10 - E78.5) Discussed cholesterol results with patient today. Total is 169. HDL is 67. LDL is 93.6. Triglycerides are 42. Readings are at goal. He is to continue with the Simvastatin. Feb,bdominal pain (ICD-10 - R10.9) He had diverticulitis [...] He will try to have a bowel movementand will have gas which helps but does [...] him to Dr. Puente to discuss/evaluate further. Feb,Hyperglycemia (ICD-10 - R73.9) Discussed blood sugar results with patient today. Glucose is 108. HgA1C is 5.6 which is at the higher end of normal. He admits to drinking alot of coffee with sugar. I did recommend that he watch hisintake of carbs and sugars. Stay active. Will continue to monitor. Feb,nemia (ICD-10 - D64.9) His B12 level is 802. Folate is 9.6. He is to continue with his B12 supplement as directed. Feb,onstipation (ICD-10 - K59.00) He continues to have constipation issues, voices that he has had episodes of black and dark stools.He will have stomach issues even when he lays on his side. He previously followed with Dr. Epps but would like to see Dr. Puente. I will refer him. He did start taking Metamucil and voices that this caused stomach issues. He denies mucous in the stools. Feb,Weight gain (ICD-10 - R63.5) Feb,OPD (chronic obstructive pulmonary disease) (ICD-10 - J44.9) Continue with above medication daily as directed. Feb,ong term use of drug (ICD-10 - Z79.899) Feb,bnormal thyroid blood test (ICD-10 - R94.6) His TSH is 2.120, this is something we will continue to monitor. Feb,PH (benign prostatic hyperplasia) (ICD-10 - N40.0) He continues to follow with Dr. Acosta and has an appointment with him next month (Mar 2021). Feb,nxiety and depression (ICD-10 - F41.9) He does continue to use and benefit from the Venlafaxine. Feb,Memory difficulty (ICD-10 - R41.3) He does follow with Dr. Stewart, he recently saw him. He is still driving and is not getting lost with familiar areas. He forgets things like peoples names, he may have to sit for long periods of timeto recall peoples names. He will have another memory test done when he sees Dr. Stewart again. Feb,levated CO2 level (ICD-10 - R79.81) He denies snoring, waking himself up gasping for air. His CO2 level is 32.7. He feels rested when he wakes. Will continue to monitor. Feb,Other He voices that he continues to drop things with his right hand and this issue is worsening. Dr. Stewart is unsure why this is. He is continuing to monitor this. He will be seeing Dr. Diego for evaluation next month (Mar 2021). [facility] Other 07-09-2021 NoteHNO ID: [id number] Author: Addis Villarreal MD Service: ? Author Type: Physician Type: [...] in the past, he was seeing a Laura feed manager. He had PFTs, about 2 years. He [...] years before he quit. 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 He went out on [...] Take by mouth once (more content not included)...[facility]07-09-2021 NoteProcedure (PULMAV) JB VAIL ([id number]) 1945 M Date Time Provider Department 09/29/20 8:30 AM PULM LAB [facility] PULMAV During your visit today, we recorded the following information about you: Referring Provider: SELF [200] Allergies As of Date: 09/29/2020 Noted Allergy Reaction PENICILLINS 05/27/2001 2 - Rash SULFA (SULFONAMIDE ANTIBIOTICS) 05/27/2001 2 - Rash Date Reviewed: 09/29/2020 Reviewed by: Barb Nguyen, VACUUM METALIZER OPERATOR - Fully Assessed Reason for Visit: Spirometry [191] Visit Diagnosis:Dyspnea on exertion [R06.00] Order(s):SPIROMETRY WITH DILATOR IF OBSTRUCTED [9592256] Order #: [id number] Prescriptions as of 09/29/2020 - dicyclomine (BENTYL) [...] NEC [R25.8, R25.9] Encounter Status:Closed by BARB NGUYEN on 09/29/20[facility] 09-29-2020 NoteHNO ID: [id number] Author: Barb Julio RT(R) Service: Radiology Author Type: Trial Lawyer Type: Progress Notes Filed: 09/29/2020 8:07 AM [...] Barb Julio, RT(R) September 29, 2020 8:07 [facility] Author Azael Stewart [facility] DaytonNote Date/TimeMarch 2024 2:55[place] [address] Neurology Consult Note Signed Patient: Jb Vail MR#: [id number] : 1945 Acct:[id number] Age/Sex: 78 / M Adm Date: 5 Loc: Room: [address] [place] [address] Type: ADM INOo Attending Dr: Se Starkey DO Copies to: DO Keith Grimes DO Kristopher L Lindbloom, DO~ HPI Consult Date: 05/29/24 [employer] Correspondent: Azael Stewart DO [facility] Medical History Abdominal pain History of measles, mumps, or rubella History of chicken pox Spastic colon Irritable bowel syndrome with constipation Degenerative disc disease, lumbar History of basal cell carcinoma (BCC) of skin ear and neck 2014 COPD (chronic obstructive pulmonary disease) Hypercholesteremia Surgical History History of surgery finger, 1975 History of urologic surgery TRUS w/Bx 08-07-10 Cysto 03/30/10 Cysto, TURP 12-26-11 Urodynamics 11-11-11 History of tonsillectomy and adenoidectomy History of colonoscopy 08/22/2021 Dr. Puente, Normal History of esophagogastroduodenoscopy (EGD) 08/22/2021 Dr. Puente Previous back surgery H/O neck surgery H/O elbow surgery 2017 Right Elbow, Dr. Brock Family History Sister Kidney disease Brother Cardiovascular disease Father Cardiovascular disease Brother Heart disease Legacy FamHx Relation: Brother(s) Congestive heart failure Legacy FamHx Relation: Brother(s) Father Cancer Legacy FamHx Problem: Diagnosed with Cancer Father Cancer Grandparent Legacy FamHx Relation: Maternal Grand Father Cancer Legacy FamHx Relation: Maternal Grand Father; Legacy FamHx Problem: Diagnosed with Cancer Grandparent Legacy FamHx Relation: Maternal Grand Mother Grandparent Heart disease Legacy FamHx Relation: Paternal Grand Father Legacy FamHx Relation: Paternal Grand Father Grandparent Legacy FamHx Relation: Paternal Grand Mother Grandparent Cancer Legacy FamHx Relation: Maternal Grand Father Grandparent Heart disease Legacy FamHx Relation: Paternal Grand Father Mother Son Cancer Legacy FamHx Problem: Diagnosed with Cancer Son Cancer Social History Smoking Status: Former smoker Substance Use Type: None Meds Medications and Allergies Allergies Penicillins Allergy (Unknown, Verified 04/14/24 08:18) Unknown Reaction, hives sulfacetamide Allergy (Unknown, Verified 04/14/24 08:18) hives Sulfa (Sulfonamide Antibiotics) Allergy (Verified 04/14/24 08:18) Unknown Reaction Home Medications coenzyme Q10 30 mg capsule (Co Q-10) 30 mg PO DAILY 08/21/21 [History Confirmed 04/14/24] finasteride 5 mg tablet 5 mg PO DAILY 08/21/21 [History Confirmed 04/14/24] albuterol sulfate 90 mcg/actuation aerosol inhaler (ProAir HFA) 2 inh [id number] 09/26/23 [History Confirmed 04/14/24] venlafaxine 75 mg capsule,extended release 24 hr 75 mg PO DAILY 10/14/23 [History Confirmed 04/14/24] valacyclovir 500 mg tablet (Valtrex) 500 mg PO DAILY cold sores 90 days #90 tabs 11/19/23 [Rx Confirmed 04/14/24] valacyclovir 1 gram tablet (Valtrex) 1,000 mg PO TID #21 tabs 01/20/24 [Rx Confirmed 04/14/24] fluticasone fur. 100 mcg-umeclid 62.5 mcg-vilant 25 mcg inhalat.powder (Trelegy Ellipta) yaweggnqfl05/22/25 [History Confirmed 04/14/24] mecobalamin (vitamin B12) 1,000 mcg chewable tablet 1,000 mcg PO .COMPLEX 04/14/24 [History Confirmed 04/14/24] doxycycline hyclate 100 mg capsule 100 mg PO BID 10 days #20 caps 04/26/24 [Rx] simvastatin 40 mg tablet See Rx Instructions .Route .COMPLEX #90 tabs 05/26/24 [Rx] Exam Physical Exam Vital Signs: Temp Pulse Resp BP Pulse Ox O2 Del Method 97.5 F L 62 16 121/71 95 Room Air 05/29/24 08:00 05/29/24 08:00 05/29/24 08:00 05/29/24 08:00 05/29/24 08:00 05/29/24 08:00 Results - Neuro Laboratory Findings 05/29/24 05:45 Assessment/Plan (1) Peripheral vertigo: Qualifiers: Laterality: unspecified laterality Qualified Code(s): H81.399 - Other peripheral vertigo, unspecified ear Plan CONSULT REASON: Dizziness HPI: 78-year-old man. Yesterday he woke up from a nap and thought he felt something pop in his head and had dizziness. I think he describes a bit of palinopsia. He went to the [place] emergency department. CT head there was said to be without acute findings. CTA reportedly showed 50% stenosis of the left common carotid artery at the left bulb and less than 50% at the right bulb. They called me to discuss his case. They described as vertigo. I told him they need MRI and wanted them to get it there at [place]. They said they would not have MRI over the weekend but it was Friday afternoon. The patient was transferred here. He was recently diagnosed with dementia and started taking donepezil. He follows with Dr. Aguirre. In speaking with him and his it becomes clear that he has dealt with episodic vertigo in the past and has even had vestibular physical therapy. It is also clear that he is a very anxious man. He remarks multiple times about how his memory is getting poor. Home medications include finasteride, venlafaxine, valacyclovir, doxycycline, simvastatin. And the donepezil. EXAMINATION: In no distress. No deformities or trauma. Limbs seem well-perfused. No significant edema. Normal work of breathing. Visualized skin is generally intact and without lesions. Affect anxious and pressured. Patient is alert and generally oriented. Attention normal. Speech is fluent and nondysarthric. Pupils are equal and reactive. Ocular motility is full. No nystagmus. Facial sensation is normal. Hearing is normal. Facial strength is normal. Tongue is midline. Muscle bulk, tone, and strength are normal. No tremors. Light touch is intact. DATA REVIEW: -MRI brain is without any acute or concerning findings. Though there was no contrast with this study, there looks to be a meningioma that is 6 mm in diameter on the lateral convexity overlying the right frontal lobe. It does not appear to exerting mass effect or irritate the underlying cortex. ASSESSMENT: Vertigo that resolved. I believe this was peripheral vertigo, most likely BPPV. The MRI of his brain does not not offer any alternative explanation or cause for central vertigo. And he has had episodes of vertigo in the past that have required vestibular therapy. He now carries a diagnosis of dementia. No concerning findings on the MRI of his brain regarding this. He strikes me as being extremely anxious. I suspect there could be a significant amount of pseudodementia at play here. PLAN: 1. No other inpatient recommendations from my standpoint at this time 2. Follow-up with Dr. Aguirre in the outpatient setting 3. I recommend outpatient neuropsych testing 4. I would give strong consideration to starting medication aimed at depression/anxiety. He was a bit hesitant about this. They will discuss. He said that if neuropsych testing suggested it would be helpful then he would do whatever. Documented By: Azael Stewart DO 05/29/24 1133 Signed By: <Electronically signed by Azael Stewart DO> 05/29/24 1620 [facility] Work Phone: Discharge summary Author Se Starkey [facility]Note Date/TimeMarch 2024 2:08[place] [address] Discharge Summary Signed Patient: Jb Vail MR#: [id number] : 1945 Acct:[id number] Age/Sex: 78 / M Adm Date: 5 Loc: 3T Room: 3T2439-[address]: Se Starkey DO Copies to: Casper Aguirre, DO Keith Atkinson,DO Se Starkey DO~ Providers Date of Discharge: 05/29/24 Discharging Provider: Se Starkey Primary Care Provider: Keith Atkinson Consults: 05/28/24 22:40 Consult to Neurology Routine Comment: Consulting Provider: Azael Stewart Reason For Exam: dizzy Has Provider Been Notified: Yes Date of Notification: 05/29/24 Time of Notification: 07:06 05/28/24 22:41 Consult to Occupational Therapy Routine Comment: Physician Instructions: Consult to OT for:: Evaluation and Treat Consult to Physical Therapy Routine Comment: Physician Instructions: Consult to PT for:: Evaluation and Treat Discharge Diagnosis (1) Vertigo: (2) BPPV (benign paroxysmal positional vertigo): (3) Dementia: Final Diagnosis Final Discharge Diagnosis: Acute positional vertigo, consistent with benign paroxysmal positional vertigo. Recent concern for diagnosis of dementia. Summary Hospital Course Hospital course: This is a 78-year-old man who presented to the [facility] emergency room with severe dizziness. A few weeks ago he was diagnosed as having some concerns for dementia. He had been started on Aricept. In the [facility] ER they tried a number of medicines and IV fluids but it did notimprove his dizziness. The patient had presented there on a Friday afternoon. The [facility] ER tried to arrange an MRI of the brain but found that it was impossible to MRI his brain or [facility] [place] and that the MRI machine would not be rounding again until Friday, therefore they requested transfer over here to [facility]. [place] [facility] [place] of the brain was without acute findings. There is no posterior circulation stroke. There is evidence of a meningioma. The patient had neurology consultation by Dr. Azael Stewart. The patient has already been establishedin the neurology office with Dr. Casper Aguirre. The patient has undergone vestibular therapy before. Those Dylon maneuvers and vestibular therapies have been extremely successful and help the patient a lot. The patient's the bedside says that she has 6 more appointments available with the vestibular therapy team. I encouraged him to get back into 2 more vestibular therapy. Vertigo likethis is likely to wax and wane, but hopefully will improve over time. There is a concern that there may be a big component of pseudodementia to the patient's current clinical picture. His tells me that they are working to get into see the neuropsychologist. I defer to the primary care physician to see if medication and treatment for depression and/or anxiety may be helpful while he is going through this process Condition Condition at Discharge: Stable Status at Discharge Functional status at discharge: independent ambulation Overall status at discharge: patient is back to baseline Time Spent with Patient Time spent providing/coordinating discharge services (# min): 14 Discharge Plan Discharge Plan Patient Disposition: Home Activity: No Activity Restriction Diet: Regular Instructions: Know your Meds Prescriptions: Continued valacyclovir [Valtrex] 500 mg tablet 500 mg PO DAILY 90 Days Qty: 90 3RF doxycycline hyclate 100 mg capsule 100 mg PO BID 10 Days Qty: 20 0RF simvastatin 40 mg tablet See Rx Instructions .ROUTE .COMPLEX Qty: 90 3RF Dose Instruction: TAKE 1 TABLET BY MOUTH AT BEDTIME Rx Instructions: TAKE 1 TABLET BY MOUTH AT BEDTIME finasteride 5 mg tablet 5 mg PO DAILY Patient Comments: TAKE 1 TABLET BY MOUTH EVERY DAY coenzyme Q10 [Co Q-10] 30 mg Capsule 30 mg PO DAILY Trelegy Ellipta 100-62.5-25 mcg blister with device inhalation albuterol sulfate [ProAir HFA] 90 mcg/actuation HFA aerosol inhaler 2 inh inhalation Q4HR venlafaxine 75 mg capsule,extended release 24hr 75 mg PO DAILY mecobalamin (vitamin B12) 1,000 mcg tablet,chewable 1,000 mcg PO .COMPLEX Rx Instructions: 1,000 mcg orally 1 tablet Orally qd x6 days a week; valacyclovir [Valtrex] 1 gram tablet 1,000 mg PO TID Qty: 21 0RF Exam Physical Exam Vital Signs: Temp Pulse Resp BP Pulse Ox O2 Del Method 97.4 F L 85 18 130/71 97 Room Air 05/29/24 11:38 05/29/24 11:38 05/29/24 11:38 05/29/24 11:38 05/29/24 11:38 05/29/24 11:38 Narrative: Awake. Alert. Oriented x 3. Nursing staff observed the patient walk many laps in the hallway without obvious difficulty. Psychiatric: He is very hyperactive. He repeats himself a lot. He does look anxious. Pulmonary: Clear to auscultation throughout. No wheezing. No rhonchi. No crackles. Card: Regular rate and rhythm. No rubs or gallops to auscultation. Diagnostic Studies Completed and Pending Studies Pending studies at discharge: 05/28/24 22:41 [facility] echo transthoracic Routine Labs on day of discharge: 05/29/24 05:45: PHA Creatinine Clear 80.22, Sodium 136, Potassium 4.8, Chloride 105, Carbon Wzlgeio82.0, Anion Gap 7.8, BUN 16, Creatinine 0.68 L, Est GFR (CKD- EPI) > 60.0, Glucose 143 H, Calcium9.3 Documented By: Se Starkey, 1503 Signed By: <Electronically signed by Se Starkey, DO> 05/29/24 1508 [facility] Work Phone: Evaluation + Plan note Future Appointments Appointment Date:10/11/2022 08:00:00 AM Scheduled Provider:Sanjuanita ACOSTA MD Location:[facility] Appointment Type:URO Office Visit Diagnostic Tests Pending * PSA Total 10/08/21 [facility] evaluation + Plan note Future Appointments Appointment Date:01/30/2024 08:30:00 AM Scheduled Provider:Sanjuanita ACOSTA MD Location:[facility] Appointment Type:URO Office Visit Diagnostic Tests Pending * PSA Total 01/27/23 [facility] evaluation + Plan note Future Appointments Appointment Date:01/30/2024 08:30:00 AM Scheduled Provider:Sanjuanita ACOSTA MD Location:[facility] Appointment Type:URO Office Visit [facility] evaluation + Plan note Future Appointments Appointment Date:02/05/2024 11:40:00 AM Scheduled Provider:TL CARMONA PA-C Location:[facility] Appointment Type:URO Office Visit [facility] evaluation noteNo [employer]24 Other Evaluation note* Diagnosis Onset Date Resolution Status Abdominal pain acuteAbscessacuteAnemiaacuteBPH (benign prostatic hyperplasia)acuteChest pain acuteCold soreacuteConstipationacuteCOPD (chronic obstructive pulmonary disease) acuteHyperglycemiaacuteHyperlipidemiaacuteWeight lossacute [place] Work Phone: Evaluation note* Diagnosis Mild cognitive impairment- Primary Mild cognitive impairment, so stated Cervical myelopathy (CMS/HCC) Cervical spondylosis with myelopathy [facility] Diagnosis Cognitive impairment- Primary Unspecified persistent mental disorders due to conditions classified elsewhere Memory loss Word finding difficulty Anxiety with depression [facility]* Diagnosis Cortical age-related cataract of both eyes- Primary Blepharitis of upper eyelids of both eyes, unspecified type [facility]* Diagnosis Vertigo- Primary Dizziness and giddiness Abnormal finding on MRI of brain Cognitive impairment Unspecified persistent mental disorders due to conditions classified elsewhere Cervical myelopathy (CMS/HCC) Cervical spondylosis with myelopathy [facility]* Diagnosis Mild neurocognitive disorder- Primary Word finding difficulty Anxiety with depression Family history of dementia Family history of other neurological diseases [facility] Diagnosis Cognitive impairment- Primary Unspecified persistent mental disorders due to conditions classified elsewhere Abnormal finding on MRI of brain Vertigo Dizziness and giddiness Cervical myelopathy (CMS/HCC) Cervical spondylosis with myelopathy [facility]* Diagnosis Onset Date Resolution Status Admit Date Abdominal pain acuteJuly 2024 10:28amDyspepsiaacuteJuly 2024 10:28amEarly satiety acuteJuly 2024 10:28amLoss of appetiteacuteJuly 2024 10:28amNausea & vomitingacuteJuly 2024 10:28amWeight lossacuteJuly 2024 10:28am [place] Work Phone: History general Narrative - Reported* Type Description Date Medical History History of Chicken Pox/Measles/M umps Medical Historyfollows with Dr. Acosta for his prostate and kidneysMedical HistoryhyperlipidemiaMedical HistoryBPHMedical HistoryinsomniaMedical History acid refluxMedical HistoryanxietyMedical HistoryCOPDSurgical HistoryNeck and [id number] BmhsrerLdhywv8961Ycmflcin HistorytonsillectomySurgical History adenoidectomySurgical HistoryTRUS with Biopsy Dr. 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 [id number] HistoryColonoscopy, EGD, Dr. Puente 08/22/21Hospitalization Historysee above [facility] Other History general Narrative - Reported* Type Description Date Medical History History of Chicken Pox/Measles/M umps Medical Historyfollows with Dr. Acosta for his prostate and kidneysMedical HistoryhyperlipidemiaMedical HistoryBPHMedical HistoryinsomniaMedical History acid refluxMedical HistoryanxietyMedical HistoryCOPDSurgical HistoryNeck and [id number] FmyryylGplwcc9560Tycockya HistorytonsillectomySurgical History adenoidectomySurgical HistoryTRUS with Biopsy Dr. 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 PressleyNjqgj8-09-69Lsengttquraaqpe Historysee above [facility] Other Hospital course Narrative No data available for this section [facility] Discharge instructions No data available for this section [facility] Discharge instructions Additional Instructions DISCHARGE INSTRUCTIONS FOR UPPER ENDOSCOPY WHAT TO EXPECT: - You may feel full, gassy or cramping after your procedure. In some cases, this may be from a few hours to a day. Walking may help relieve the discomfort. - Your throat may feel sore today from the scope that the doctor passed through your throat to visualize your stomach. Take a throat lozenge or suck on ice to ease the discomfort. - You may notice some streaks of blood in your sputum if the doctor has taken a biopsy. - You should begin to recover from anesthesia within 1 hour of the procedure, however may feel groggy for the next 24 hours. DO's AND DON'Ts: - Call your doctor right away if you have a hard abdomen, severe pain, vomiting or if you cough up large amounts of blood. - Call your doctor if you develop any rashes, hives or difficulty breathing. - If you take 81 mg aspirin for your heart it is safe to resume this medication. - If you take other blood thinner medications your doctor will instruct you when these can safely be resumed. - Do NOT drive for 24 hours. - Do NOT operate machinery such as power tools, [employer] mowers, snow blowers, sewing machines, etc. for 24 hours. - Avoid alcoholic beverages and drugs for allergies, nerves, or sleep. - Do NOT stay alone. Do NOT leave your child unattended. - Do NOT make important personal or business decisions or sign any legal documents. - Eat solid foods and drink liquids in smaller amounts than usual until normal appetite returns. If you should experience an upset stomach, liquids high in sugar content (soda, Marcelo-Aid, non-acid juices) are recommended. - Do NOT smoke. - Do take it easy today. You need not stay in bed, but avoid strenuous activities such as jogging or working out. FOLLOW UP & RECOMMENDATIONS: - Start omeprazole 40 mg daily, this has been sent to your pharmacy. - GI office will schedule a follow-up appointment. - Notify the doctor if you have any problems. - Follow up with PCP. - Office number [phone].[facility] Work Phone: Progress note No data available for this section [facility] reason for referral (narrative)No reason for referral information availableCent[place] Work Phone: Reason for visit Narrative* Consultation (Routine) - ClosedSpecialtyDiagnoses / ProceduresReferred By ContactReferred To Contact Neuropsychology Diagnoses Cognitive impairment Procedures ID OFFICE/OUTPATIENT [facility] 60 MINUTES Génesis Hodges NP [address] [place] [id number] Phone: tel: Collin Iqbal, PhD [address] [address] Phone: tel: fax: Referral IDStatusReasonStart DateExpiration DateVisits RequestedVisits [id number] Specialty Services Required / [facility] Healthcare Summary Purpose Family History Relationship Condition Age at Onset Recorded Date/T jarrod sister Kidney disorder Unknown brotherCardiovascular diseaseUnknownfatherCardiovascular diseaseUnknownbrother Heart diseaseUnknownCongestive heart failureUnknownfatherDeceasedUnknown Malignant neoplasmUnknownfatherMalignant neoplasmUnknowngrandparentDeceased UnknowngrandparentHeart diseaseUnknownDeceasedUnknowngrandparentMalignant neoplasmUnknownmotherDeceasedUnknownsonMalignant neoplasmUnknown Relationship Condition Age at Onset Recorded Date/T jarrod sister Kidney disorder Unknown brotherCardiovascular diseaseUnknownbrotherHeart diseaseUnknownCongestive heart failureUnknownfatherMalignant neoplasmUnknownDeceasedUnknownHeart diseaseUnknown grandparentDeceasedUnknownmotherDeceasedUnknownsonMalignant neoplasmUnknown maternal grandfatherMalignant neoplasmUnknownpaternal grandfatherHeart disease Unknownmaternal grandmotherDeceasedUnknown Advance Directives Advance Directive Response Recorded Date/ Time Advance Directives No June 23 10:45am Advance Directive Response Recorded Date/ Time Advance Directives No June 23 9:45am Reason for Referral Reason appt pt needs cons ult to discuss constipation, change in bowel habits, dark stools Diagnosis 1 Constipation (K59.00 ) Referral Organization [facility] Family Medicin e [place] Referring Provider First Name Keith Referring Provider Last Name China Referring Provider Specialty Family Prac tomy Referred Organization [facility] Gastroenterolo gy Referred Provider Keith Puente Referred Address [address] [address] ,[place], [place],[address] Referred Provider Specialty Gastroentero logy Referral Priority Routine General Notes Jo Ann Helms 03/13/2021 09:01:08 AM > referral sent p2p. pt understands he will be contacted to schedule this appt. Chief Complaint and Reason for Visit Chief Complaint Amb Documentation review labsReason for VisitAbdominal pain Abscess Anemia BPH (benign prostatic hyperplasia) Chest pain Cold sore Constipation COPD (chronic obstructive pulmonary disease) Hyperglycemia Hyperlipidemia Weight loss Chief Complaint Amb Documentation review labs vertigoReason for VisitAbdominal pain Abscess Anemia BPH (benign prostatic hyperplasia) Chest pain Cold sore Constipation COPD (chronic obstructive pulmonary disease) Hyperglycemia Hyperlipidemia Weight loss BPH (benign prostatic hyperplasia) Memory difficulty Vertigo Chief Complaint vertigo lt earache/sorenessReason for VisitBPH (benign prostatic hyperplasia) Memory difficulty Vertigo COPD (chronic obstructive [...] :59am Hyperlipidemia April 14, 2024 7 :59am Chief Complaint Admit Date review labs April 14, 2024 7 :59am Dizziness May 28, 2024 9:44 pm Reason for Visit Admit Date Abdominal pain April 14, 2024 7 :59am Anemia April 14, 2024 7 :59am BPH (benign prostatic hyperplasia) Janua 2024 7:59am Constipation April 14, 2024 7 :59am COPD (chronic obstructive pulmonary dise ase) April 14, 2024 7:59am Hyperglycemia April 14, 2024 7 :59am Hyperlipidemia April 14, 2024 7 :59am Peripheral vertigo May 28, 2024 9:44 pm Vertigo May 28, 2024 9:44 pm Chief Complaint Admit Date nausea, vomiting, abdominal pain October 052024 10:28am Reason for Visit Admit Date Abdominal pain October 05, 2024 10:2 8am Dyspepsia October 05, 2024 10:2 8am Early satiety October 05, 2024 10:2 8am Loss of appetite October 05, 2024 10:2 8am Nausea & vomiting October 05, 2024 10:2 8am Weight loss October 05, 2024 10:2 8am Chief Complaint Admit Date nausea, vomiting, abdominal pain October 052024 10:28am 6 MONTH F/U October 11, 2024 9:37 am Reason for Visit Admit Date Abdominal pain October 05, 2024 10:2 8am Dyspepsia October 05, 2024 10:2 8am Early satiety October 05, 2024 10:2 8am Loss of appetite October 05, 2024 10:2 8am Nausea & vomiting October 05, 2024 10:2 8am Weight loss October 05, 2024 10:2 8am Abnormal finding on MRI of brain October 112024 9:37am Cervical myelopathy October 11, 2024 9:37 am MCI (mild cognitive impairment) September 9:37am Vertigo October 11, 2024 9:37 am Chief Complaint Admit Date nausea, vomiting, abdominal pain October 052024 10:28am 6 MONTH F/U October 11, 2024 9:37 am [id number] r73.9 e78.5 October 12, 2024 9:12 am Chief Complaint Admit Date nausea, vomiting, abdominal pain October 052024 10:28am 6 MONTH F/U October 11, 2024 9:37 am [id number] r73.9 e78.5 October 12, 2024 9:12 am ab pain,nausea,loss of appetite,weight l oss October 26, 2024 11:22am Chief Complaint Admit Date nausea, vomiting, abdominal pain October 052024 10:28am 6 MONTH F/U October 11, 2024 9:37 am [id number] r73.9 e78.5 October 12, 2024 9:12 am ab pain,nausea,loss of appetite,weight l oss October 26, 2024 11:22am 2-4 w follow up EGD November 17, 2024 9: 20am Reason for Visit Admit Date Abdominal pain October 05, 2024 10:2 8am Dyspepsia October 05, 2024 10:2 8am Early satiety October 05, 2024 10:2 8am Loss of appetite October 05, 2024 10:2 8am Nausea & vomiting October 05, 2024 10:2 8am Weight loss October 05, 2024 10:2 8am Abnormal finding on MRI of brain October 112024 9:37am Cervical myelopathy October 11, 2024 9:37 am MCI (mild cognitive impairment) September 9:37am Vertigo October 11, 2024 9:37 am Dyspepsia November 17, 2024 9: 20am Early satiety November 17, 2024 9: 20am Weight loss November 17, 2024 9: 20am Additional Source Comments (unrecognized sect ion and content) No Status Records FoundNo Status Records FoundNo Status Records FoundNo Status Records FoundNo Status Records FoundNo Status Records Found INFORMATION SOURCE (unrecogn ized section and content) DATE CREATED AUTHOR 09/30/2020 [facility] DATE CREATED AUTHOR AUTHOR'S ORGANIZ ATION 05/07/2021 [facility] DATE CREATED AUTHOR AUTHOR'S ORGANIZ ATION 04/16/2022 [facility] DATE CREATED AUTHOR AUTHOR'S ORGANIZ ATION 02/16/2024 [facility] DATE CREATED AUTHOR AUTHOR'S ORGANIZ ATION 07/16/2024 [facility] DATE CREATED AUTHOR AUTHOR'S ORGANIZ ATION 11/04/2024 [facility] REASON FOR VISIT (unrecogniz ed section and content) ReasonCommentsEye ExamReasonCommentsHospital Follow-upMemory LossVertigoReason CommentsDizzinessMemory Loss Care Team (unrecognized sect ion and content) Team Status: Active Member Role Status Dates Keith Atkinson DO Primary Care Provider Active Team Status: Inactive Member Role Status Dates Keith Atkinson DO Primary Care Provider Active S tart: October 05, 2024 End: October 05emily Toledo , MDAttending ProviderActiveStart: October 05, 2024 End: October 05, 2024 Team Status: Active Member Role Status Dates Keith Atkinson DO Primary Care Provide r, Attending Provider Active Start: April 09, 2024 Team Status: Inactive Member Role Status Blake Atkinson DO Primary Care Provide r, Attending Provider Active Start: April 14, 2024 End: April 14, 2024 Team Status: Active Member Role Status Dates Keith Atkinson DO Primary Care Provider Active S tart: May 28, 2024 Larisa Deshpande ProviderActiveStart: May 28, 2024 Team Status: Inactive Member Role Status Blake Atkinson DO Primary Care Provider Active S tart: May 28, 2024 End: May 29, 2024Se Starkey , DOAttending ProviderActiveStart: May 28, 2024 End: May 29, 2024Marcela Keller MDAdmit ProviderActiveStart: May 28, 2024 End: May 29melissa Stewart , DOOther ProviderActiveStart: May 28, 2024 End: May 29, 2024 Team Status: Inactive Member Role Status Blake Atkinson DO Primary Care Provide r, Attending Provider Active Start: December 17, 2023 End: December 17, 2023 Team Status: Active Member Role Status Blake Atkinson DO Primary Care Provider Active S tart: December 18, 2023 Augie Mari [facility] , DOAttending ProviderActiveStart: December 18, 2023 Team Status: Inactive Member Role Status Dates Keith Atkinson DO Primary Care Provide r, Attending Provider Active Start: January 20, 2024 End: January 20, 2024 Team Status: Active Member Role Status Blake Atkinson DO Primary Care Provider Active S tart: September 19, 2023 Tea Jackson ProviderActiveStart: September 19, 2023 Team Status: Active Member Role Status Blake Atkinson DO Primary Care Provide r, Attending Provider Active Start: October 09, 2023 Team Status: Inactive Member Role Status Dates Keith Girvin , DO Primary Care Provide r, Attending Provider Active Start: October 14, 2023 End: October 14, 2023 Team Status: Active Member Role Status Dates Keith Atkinson DO Primary Care Provider Active S tart: January 21, 2024 Sanjuanita Magalis Acosta ProviderActiveStart: January 21, 2024 Team MemberRelationshipSpecialtyStart DateEnd Date Keith Atkinson MD [address] [place] [address] PCP - GeneralFamily Medicine04/26/24Team MemberRelationshipSpecialtyStart DateEnd Date Keith Atkinson MD [address] [place] [address] PCP - GeneralFamily Medicine04/26/24Team MemberRelationshipSpecialtyStart DateEnd Date Keith Atkinson MD [address] [place] [address] PCP - GeneralFamily Medicine04/26/24Team MemberRelationshipSpecialtyStart DateEnd Date Keith Atkinson MD [address] [place] [address] PCP - GeneralFamily Medicine04/26/24 Génesis Hodges NP [address] [place] [address] Nurse PractitionerNeurology06/16/24 Casper Aguirre DO [address] [place] [address] Referring PhysicianNeurology06/16/24Team MemberRelationshipSpecialtyStart DateEnd Date Keith Atkinson MD [address] [place] [address] PCP - GeneralFamily Medicine04/26/24 Génesis Hodges NP [address] [place] [address] Nurse PractitionerNeurology06/16/24 Casper Aguirre DO [address] [place] [address] Referring PhysicianNeurology06/16/24Team MemberRelationshipSpecialtyStart DateEnd Date Keith Atkinson MD [address] [place] [address] PCP - [facility]Unity[facility] Medicine04/26/24 Génesis Hodges NP [address] [place] [address] Nurse PractitionerNeurology06/16/24 Casepr Aguirre DO [address] [place] [address] Referring PhysicianNeurology06/16/24Team MemberRelationshipSpecialtyStart DateEnd Date Keith Atkinson MD [address] [place] [address] PCP - GeneralFamily Medicine04/26/24 Génesis Hodges NP [address] [place] [address] Nurse PractitionerNeurology06/16/24 Casper Aguirre DO [address] [place] [address] Referring PhysicianNeurology06/16/24Team MemberRelationshipSpecialtyStart DateEnd Date Keith Atkinson MD [address] [place] [address] PCP - GeneralFamily Medicine04/26/24 Génesis Hodges NP [address] [place] [address] Nurse PractitionerNeurology06/16/24 Casper Aguirre DO [address] [place] [address] Referring PhysicianNeurology06/16/24Team MemberRelationshipSpecialtyStart DateEnd Date Keith Atkinson MD [address] [place] [address] [place] [address] PCP - GeneralFamily Medicine04/26/24 Génesis Hodges NP [address] [place] [address] Nurse PractitionerNeurology06/16/24 Casper Aguirre DO [address] [place] [address] Referring PhysicianNeurology06/16/24Team MemberRelationshipSpecialtyStart DateEnd Date Keith Atkinson MD [address] [place] [address] [place] [address] PCP - GeneralFamily Medicine04/26/24 Génesis Hodges NP [address] [place] [address] Nurse PractitionerNeurology06/16/24 Casper Aguirre DO [address] [place] [address] Referring PhysicianNeurology06/16/24Team MemberRelationshipSpecialtyStart DateEnd Date Keith Atkinson MD [facility] [address] [place] [address] PCP - GeneralFamily Medicine04/26/24 Génesis Hodges NP [address] [place] [address] Nurse PractitionerNeurology06/16/24 Casper Aguirre DO [address] [place] [address] Referring PhysicianNeurology06/16/24 Team Status: Inactive Member Role Status Dates Keith Atkinson DO Primary Care Provider Active S tart: October 11, 2024 End: October 11, 2024Génesis Hodges APRN-FNP-CAttending ProviderActiveStart: October 11, 2024 End: October 11, 2024 Team Status: Inactive Member Role Status Dates Keith Atkinson DO Primary Care Provider Active S tart: October 12, 2024 End: October 12, 2024Dajhonathan Atkinson DOAttbrielle ProviderActiveStart: October 12, 2024 End: October 12, 2024 Team Status: Active Member Role Status Dates Keith Atkinson DO Primary Care Provider Active S tart: October 26, 2024 Andrez Toledo MDAttending ProviderActiveStart: October 26, 2024 Andrez Toledo MDOther ProviderActiveStart: October 26, 2024 Team Status: Inactive Member Role Status Dates Keith Atkinson DO Primary Care Provider Active S tart: November 17, 2024 End: November 17, 2024Layla Muñoz ProviderActiveStart: November 17, 2024 End: November 17, 2024 Goals (unrecognized section and content) Goals [...] BE BASED ON THE PRIMARY CLINICAL RECORDS. [facility]. provides no warranty or guarantee of the accuracy or completeness of information in this document.
--- OUTSIDE RECORDS SUMMARY | 2025-01-25 06:09 | XMS_ITS | Clinical Summary ---
Author Organization [facility] Address [address] [place] [address] Care Team Providers Care Director Of Vocational Training Name Role Phone Kun Olvera Primary Care Provider [phone] Allergies Active AllergyReactionsCriticalityNoted MnoaXkqztqwoJdpvavuuukdNwgw76/06/2002 Sulfa (Sulfonamide Antibiotics)Rash05/27/2001 Medications MedicationSigDispense QuantityRefillsLast FilledStart DateEnd DateStatus CELEBREX 200 MG CAP Take one(1) tablet two(2) times daily.ctive Additional Information Patient not taking.Reported on 09/29/2020 SOMA 350 MG TAB Take one(1) tablet three times daily as byxphyhwi833/10/2007ctive PERCOCET 5 MG-325 MG TAB Take one(1) tablet three or four(4) times daily as needed for pain. Active Additional Information Patient not taking.Reported on 09/29/2020 LUNESTA 3 MG TAB Take one(1) tablet at bedtime as needed for insomnia.ctive Additional Information Patient not taking.Reported on 09/29/2020 dicyclomine (BENTYL) 20 mg tablet TAKE ONE TABLET BY MOUTH EVERY 6 HOURS NEEDED FOR ABDOMINAL PAIN03/25/2019 Active finasteride (PROSCAR) 5 mg tablet Take 5 mg by mouth once daily.Active simvastatin (ZOCOR) 40 mg tablet Take 40 mg by mouth daily at bedtime.Active venlafaxine (EFFEXOR) 75 mg tablet Take 75 mg by mouth once daily.Active Omeprazole 40 mg capsule Take 40 mg by mouth once daily.Active lubiprostone (AMITIZA) 24 mcg capsule Take 24 mcg by mouth twice daily with meals.Active valACYclovir (VALTREX) 500 mg tablet Take 1,000 mg by mouth twice daily as needed.Active cyanocobalamin (VITAMIN B-12) 1,000 mcg tab Take 1,000 mcg by mouth three times a week.Active COQ10, LIPOSOMAL UBIQUINOL, ORAL Take by mouth once daily.Active SPIRIVA RESPIMAT 2.5 mcg/actuation inhaler 08/14/2020ctive albuterol sulfate 90 mcg/actuation aebs Inhale as instructed.Active Active Problems ProblemNoted DateDiagnosed DateCervical spondylosis with myelopathyAbnormal involuntary movements(781.0) Immunizations ImmunizationAdministration DatesNext DueCOVID- original vaccine, full dose, monovalent (MODERNA)05/30/2020,05/01/2020influenza (HD-IIV3) vaccine, age 65+ yr, high dose, trivalent, PF (FLUZONE HIGH-DOSE)12/28/2018,12/22/2017,12/23/2016 ,01/10/2016influenza (IIV3) vaccine, trivalent, PF (AFLURIA, FLUARIX, FLULAVAL, FLUVIRIN, FLUZONE)12/28/2014influenza (IIV4) vaccine, age 6 mo - 64 yr, quadrivalent, PF (AFLURIA, FLUARIX, FLULAVAL, FLUZONE)12/22/2018,01/20/2017 influenza vaccine, whole virus01/10/2009novel influenza (H7B2-05) vaccine, PF 03/30/2009pneumococcal polysaccharide (PPV23) vaccine, 23 valent (PNEUMOVAX 23) 01/20/2017tetanus toxoid (TT) vcpuato1310/05/2017 Family History Medical HistoryRelationCommentsmultiple sclerosis [Other]BrotherCancerFather ThyroidMaternal GrandmotherPsychiatryMotherStrokePaternal Grandfatherkidney [Other]Sisterdeceased, renal failure age 50CancerSonbrain tumor, 2000 RelationStatusCommentsBrotherFatherMaternal GrandmotherMotherPaternal GrandfatherSisterSon Social History Tobacco UseTypesPacks/DayYears UsedDateSmoking Tobacco: XtypnjBegbenrxgs8434181 - 2007Smokeless Tobacco: Never Comments:previously quit 10 years, smoked 30 years before that Alcohol UseStandard Drinks/WeekCommentsYes0 (1 standard drink = 0.6 oz pure alcohol)once every 3 monthsArea Deprivation IndexAnswerDate RecordedNational Score (1-100), lower number is lower riskNot on file02/29/2020State Score (1- 10), lower number is lower riskNot on file02/29/2020Data from: https://www.neighborhoodatlas.[facility].edu/. 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 closedNot on fileNot on fileNot on file Last Filed Vital Signs Vital SignReadingTime TakenCommentsBlood Zchzqbvf418/7107/11/2020 9:07 AM EDT Hpijv5741 9:07 AM XVIHpdrzmnjwbp18.4 ??C (97.6 ??F)05/12/2019 9:24 AM ESTRespiratory Rate--Oxygen Onqaitffqb85%09/29/2020 9:07 AM EDTRAInhaled Oxygen Concentration--Aulunm19.4 kg (153 lb)09/29/2020 9:07 AM ZZPPvxohl159.8 cm (5' 10 )05/12/2019 9:24 AM ESTBody Mass Index21.95005/12/2019 9:24 AM EST Plan of Treatment Health MaintenanceDue DateLast DoneCommentsAnxiety Huobbmubw24/29/1966Depression Btudtihxf21/29/1966Hepatitis C Psiemmrgp89/29/1966DTaP,Tdap,Td Vaccine (1 - Tdap)09/19/1966Diabetes Kegggnwqa52/29/1993RSV Vaccine (1 - 1-dose 75+ series) 09/19/2022dvance Directive Nyfjlpolzv33/01/2025ovid-19 Vaccine ( season)2020, 05/01/2020Influenza Vaccine (#1)2024 12/23/2019, 12/28/2018, 12/22/2018, Additional history existsPneumococcal Vaccine: 50+Shbusdynm06/01/2020, 01/20/2017Shingrix HzvnmryOyjejzyps98/24/2021, 03/21/2020 Insurance Care Teams Team MemberRelationshipSpecialtyStart DateEnd Date Kun Olvera [address] [place] [address] [facility]06/26/01
--- OUTSIDE RECORDS SUMMARY | 2025-01-25 06:10 | XMS_ITS | Patient Health Record ---
Author Organization [facility] Address [address] [place] [address] Care Team Providers Care Solution Developer Name Role Phone Keith Moreau DO Primary Care Provider Unavailab Akosua Jenkins Unavailable [phone] Augie Avalos Unavailable [phone] KEITH VELÁSQUEZ Unavailable [phone] AKOSUA CHAPMAN Unavailable [phone] Allergies Allergen (clinical drug ingredient) Drug/Non Drug Allergy documented on EMR Reaction Allergy Type Onset Date Status Substance with sulfonamide s tructure and antibacterial mechanism of action (substance) Sulfa Antibiotics hives Drug Allergy ActivePenicillinhivesDrug AllergyActive Reason For Referral No Information Medications Medication SIG (Take, Route, Frequency, Duration) Notes Start Date End Date Status Coenzyme Q-10 30 MG as directed Orally ActiveAlbuterol Sulfate HFA 108 (90 Base) MCG/ACT2 puffs as needed for SOB Inhalation Q4H; Duration: 90 daysActiveFinasteride 5 MGOral; Duration: 90 Days ActiveSimvastatin 40 MGOral; Duration: 90 DaysActiveVenlafaxine HCl ER 75 MG Oral; Duration: 90 DaysActiveVitamin B 12 500 MCG1 tablet Orally Once a day Active Immunizations Vaccine Route Administration Date Status Comme nts Comirnaty Pfizer Syringe Pre -Filled 30 mcg/0.3 mL Unknown 01/20/2023 Administered Comirnaty Pfizer Syringe Pre-Filled 30 mcg/0.3 iLBdfkgwp68/10/2024Administered Flu, Fluad (86886) 65 yrs + High Dose Seasonal ()Wleifzr3801/01/2024 AdministeredFlu, Fluad (76196) 65 yrs+, single-dose syringe (7312-3283)Unknown 01/20/2023dministeredPneumococcal (Pneumovax 23)Njztgjw1412/27/2020dministered Pneumococcal (Prevnar 13)Jicxthd8112/23/2019AdministeredZOSTER (SHINGLES) VACCINE (HZV)Mpkabjc4906/14/2020dministered Social History Tobacco Use: Social History Observation Description Date Details (start date - stop date) Former Smoker NA - NA Tobacco Control (Standard) Question Answer Notes Tobacco use: Former smoker How long has it been since you last smoked?Greater than 10 yearsAdditional Findings: Tobacco apv-azjlEu-plmx heavy cigarette smoker (40+/day) Problems Problem Type SNOMED Code ICD Code Onset Dates Problem Status W/U Status Risk Notes Problem Centrilobular emphysema (30408752) Centri lobular emphysema (J43.2) ActiveconfirmedProblemUncomplicated moderate persistent asthma (744706651) Moderate persistent asthma, uncomplicated (J45.40)ActiveconfirmedProblemLong- term current use of inhaled steroid (732238839)senior care (current) use of inhaled steroids (Z79.51)ActiveconfirmedProblemEx-tobacco user (finding) (955172774)History of tobacco abuse (Z87.891)ActiveconfirmedProblemExposure to Agent Thurman (963945254)Agent orange exposure (Z77.098)Activeconfirmed Vital Signs Heart Rate 72 /min 08/10/2024 Zoztgvzvjgp02.1 degrees Sukoajfrwe81/20/2025Respiratory Rate18 /min08/10/2024 Nlkctdsr87 %08/10/2024lood pressure hqlslshxy75 mm Hg08/10/20249173Oyvxho96 in 08/10/2024lood pressure unozfndb033 mm Hg08/10/20247091Vvoawc802.2 lbs08/10/2024MI 22.12 kg/m208/10/2024 Encounters Encounter Location Date Provider Diagnosis [facility] [address] [place] [address] 05/05/2024 Akosua Chapman [facility] [address] [place] [address]/09/2024 AKOSUA BUSHROWOther skin changes due to chronic exposure to nonionizing radiation L57.8 ; Tinea pedis B35.3 ; Hemangioma of skin and subcutaneous tissue D18.01 ; Other seborrheic keratosis L82.1 ; Actinic keratosis L57.0 and Neoplasm of uncertain behavior of skin D48.5[facility] [address] [place] [address]/Kimberly BushrowOther skin changes due to chronic exposure to nonionizing radiation L57.8 ; Burn of second degree of forehead and cheek, initial encounter T20.26XA ; Encounter for follow-up examination after completed treatment for malignant neoplasm Z08 and Personal history of other malignant neoplasm of skin Z85.828[facility] [place] [address] [place] [address]/[facility] SamsaModerate persistent asthma, uncomplicated J45.40 ; Centrilobular emphysema J43.2 ; Agent orange expo sure Z77.098 ; History of tobacco abuse Z87.891 and senior care (current) use of inhaled steroids Z79.51[facility] [address] [place] [address]/[facility] SamsaModerate persistent asthma, uncomplicated J45.40 ; Centrilobular emphysema J43.2 ; Agent orange exposure Z77.098 ; History of tobacco abuse Z87.891 and senior care (current) use of inhaled steroids Z79.51 [facility] [address] [place] [address]/05/2024 [facility] UBAPulmonary Medicine [address] [place] [address] 01/26/2024[facility] [address] [place] [address]/[facility] [address] [place] [address]/[facility] [address] [place] [address]/[facility] [address] [place] [address]/[facility] [address] [place] [address]/KIMBERLY BUSHROWActinic keratosis L57.0 Assessments Encounter Date Diagnosis (ICD Code) Assessment Notes Treatment Notes Treatment Clinical Notes Section Notes 05/11/2024 Centrilobular emphysema (ICD-10 - J43.2) Asthma-COPD overlap. Normal AAT genotype MM. Rx sent for Breztri. 05/11/2024Moderate persistent asthma, uncomplicated (ICD-10 - J45.40) Prior treatment: Breztri > Trelegy > Spiriva Patient appeared to be doing better on Breztri than on Trelegy. states he was better on Breztri as well. He finds tolerating the dry powder inhaler difficult. He also has new wheezes on exam, which were not present while on Breztri Patient voiced he would switch back to Breztri. Explained to him the dosing is different, at 2 puffs twice daily, and to not skip any doses. Will likely require PA, but will send Rx into [facility] to initiate the PA. His , and the patient, admitted that his memory is starting to decline, so I want him to returnin 3 months to see how he is doing, as the warmer weather and increased outside activities seem to exacerbate his symptoms even more. 12/28/2024Other skin changes due to chronic exposure to nonionizing radiation (ICD-10 - L57.8)08/10/2024Moderate persistent asthma, uncomplicated (ICD-10 - J45.40) Prior treatment: Breztri > Trelegy > Spiriva Patient had difficulty tolerating the dry powder as well as with the Ellipta device. He was better able to use the HFA device compared to the Ellipta and had a more profound improvement in his breathing with Breztri. Appears that there was a co-pay associated with Breztri for ~$115 for a 3-month supply. I replied that this is actually not a bad steen for inhalers (<$40/month). Given the above,I feel the benefits of Breztri outweigh the steen (if they can afford it). Both the patient & stated they could afford this. Discussed after he receives Breztri, then he has to actually use it on a regular basis, at 2 puffs twice daily. He remained apprehensive about using inhalers. Other than Trelegy (which he did not tolerate well as described above), the alternative is to change completely over to nebulzed medications(Pulmicort + Brovana + Yupelri). He did not like that option. He finally admitted I felt better when taking it [Breztri]! To help remind him, I suggested using Breztri before brushing his teeth. This will also help him to rinse after use to avoid candidiasis. He voiced agreement. Additionally, I suggested using albuterol 15-30 minutes prior to activities that cause dyspnea. This strategy may also help him. F/U 1 year or sooner PRN. 09/08/2024Other skin changes due to chronic exposure to nonionizing radiation (ICD-10 - L57.8)5Actinic keratosis (ICD-10 - L57.0)5Burn of second degree of forehead and cheek, initial encounter (ICD-10 - T20.26XA) 5Centrilobular emphysema (ICD-10 - J43.2) Asthma-COPD overlap. Normal AAT genotype MM. 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 No evidence of any restrictive lung disease or suggestion of fibrosis based on PFT findings (normal TLC and DLCO). 12/28/2024Tinea pedis (ICD-10 - B35.3)12/28/2024Hemangioma of skin and subcutaneous tissue (ICD-10 - D18.01)05/11/2024History of tobacco abuse (ICD-10 - Z87.891) ~42 years x 3ppd = 126 pack-years. Quit 2007. This patient does not meet current LDCT criteria (e.g. age, time from cessation, # pack-years). 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 No evidence of any restrictive lung disease or suggestion of fibrosis based on PFT findings (normal TLC and DLCO). 09/08/2024Encounter for follow-up examination after completed treatment for malignant neoplasm (ICD-10 - Z08)09/08/2024Personal history of other malignant neoplasm of skin (ICD-10 - Z85.828)08/10/2024History of tobacco abuse (ICD-10 - Z87.891) ~42 years x 3ppd = 126 pack-years. Quit 2007. This patient does not meet current LDCT criteria (e.g. age, time from cessation, # pack-years). 12/28/2024Other seborrheic keratosis (ICD-10 - L82.1)05/11/2024Long term (current) use of inhaled steroids (ICD-10 - Z79.51)5Actinic keratosis (ICD-10 - L57.0)08/10/2024Long term (current) use of inhaled steroids (ICD-10 - Z79.51) Patient was counseled to rinse & gargle with water after inhaled corticosteroid use. 12/28/2024Neoplasm of uncertain behavior of skin (ICD-10 - D48.5) Plan Of Treatment Next Appt Details Provider Name:AKOSUA MORSE, 02/02/2025 01:15:00 PM, [address] [place] [address], [phone], Provider Name:AKOSUA MORSE, 03/01/2025 09:00:00 AM, [address] [place] [address], [phone], Provider Name:AKOSUA MORSE, 03/15/2025 09:00:00 AM, [address] [place] [address], [phone], Provider Name:AKOSUA MORSE, 06/29/2025 01:00:00 PM, [address] [place] [address], [phone], Insurance Providers Payer Name Payer Address Payer Phone Subscriber Number Group Number Insured Name Patient Relationship to Insured Coverage Start Date Coverage End Date [facility] [employer] [address] [address] [place] [id number] [id number] Cash Ricardo - patient is the insured Medical (General) History Medical History History ICD Code Moderate persistent asthma, uncomplicate d J45.40 Centrilobular emphysema J43.2 BPH (benign prostatic hypertrophy) N40.0 HLD (hyperlipidemia) E78.5 GERD (gastroesophageal reflux disease) K 21.9 Anxiety F41.9 Irritable bowel syndrome with constipati on K58.1 Cervical spondylosis with myelopathy M47 .12 Agent orange exposure Z77.098 History of basal cell carcinoma (BCC) of skin Z85.828 History of tobacco abuse Z87.891 Surgical History Surgery Date(Month/Year) tonsillectomy and adenoidectomy Back SurgeryElbow SurgeryNeck SurgeryEGD/Colonoscopy
--- OUTSIDE RECORDS SUMMARY | 2025-01-25 06:10 | XMS_ITS | Clinical Summary ---
Author Organization [facility] Address [address] [facility] [place] [address] Phone Care Team Providers Care Systems Protection Technician Name Role Phone Unavailable Primary Care Provider Unavailabl e Social History Tobacco UseTypesPacks/DayYears UsedDateSmoking Tobacco: Never AssessedSex and Gender InformationValueDate RecordedSex Assigned at BirthNot on fileLegal Sex Male02/15/2022 9:07 PM ESTGender IdentityNot on fileSexual OrientationNot on file Plan of Treatment Not on file
--- OUTSIDE RECORDS SUMMARY | 2025-01-25 06:10 | XMS_ITS | Clinical Summary ---
Author Organization [facility] Address [address] [place] [address] Care Team Providers Care Regional Merchandising Manager Name Role Phone Benito Moreau MD Primary Care Provider [phone] Génesis Hodges BLOCKMASON Unavailable Unavailable Tremayne Aguirre DO Unavailable [phone] Allergies Active AllergyReactionsCriticalityNoted YahgSiriaybuFksvyasdqhx41/03/2025Sulfa Ytewtzhzdje69/03/2025 Medications MedicationSigDispense QuantityRefillsLast FilledStart DateEnd DateStatus simvastatin (Zocor) 40 MG tablet Take 40 mg by mouth at bedtimeActive valACYclovir (Valtrex) 500 MG tablet Take 500 mg by mouth DailyActive venlafaxine (Effexor) 75 MG tablet Take 75 mg by mouth DailyActive tiotropium (Spiriva) [address] 1 capsule into inhaler and inhale in the morning.Active finasteride (Proscar) 5 MG tablet Take 5 mg by mouth Daily Do not crush, chew, or split.Active niacinamide 100 MG tablet Take 100 mg by mouth in the morning and 100 mg in the evening. Take with meals. Active cyanocobalamin (Vitamin B-12) 1000 MCG tablet Take 1,000 mcg by mouth DailyActive co-enzyme Q-10 30 MG capsule Take 60 mg by mouth DailyActive donepezil (Aricept) 5 MG tablet Indications:Mild cognitive impairmentTAKE 1 TABLET BY MOUTH AT BEDTIME 90 tablet 5Active Active Problems No known active problems Family History Medical HistoryRelationNameCommentsHeart diseaseBrotherHeart failureBrother CancerFatherHeart diseaseFatherKidney diseaseSisterRelationNameStatusComments BrotherFatherDeceasedMotherDeceasedSister Social History Tobacco UseTypesPacks/DayYears UsedDateSmoking Tobacco: FormerCigarettes Smokeless Tobacco: Never Tobacco Cessation:Counseling Given: Not Answered Sex and Gender InformationValueDate RecordedSex Assigned at BirthNot on file Legal GasEoeq6107/22/2022 8:32 PM EDTGender IdentityNot on fileSexual Orientation Not on file Last Filed Vital Signs Vital SignReadingTime TakenCommentsBlood Tqbfpakn374/7204 8:33 AM EDT Xxhgj019407/15/2024 8:33 AM EDTTemperature--Respiratory Rate--Oxygen Siuxkgnchv50% 04/26/2024 8:57 AM ESTInhaled Oxygen Concentration--Phrbue02.2 kg (157 lb) 07/15/2024 8:33 AM SSLRydhfp407.8 cm (5' 10 )07/15/2024 8:33 AM EDTBody Mass Index22.53007/15/2024 8:33 AM EDT Plan of Treatment Health MaintenanceDue DateLast DoneCommentsDTaP/Tdap/Td Vaccines (1 - Tdap) 5COVID-19 Vaccine ( season), 01/20/2023, 06/29/2021, Additional history existsInfluenza Vaccine (#1), 01/20/2023, 12/06/2021, Additional history existsPneumococcal Vaccine: 65+ Years Meupkcddm03/06/2021, 12/23/2019, 01/20/2017HIB VaccinesAged OutNo longer eligible based on patient's age to complete this topicHPV VaccinesAged OutNo longer eligible based on patient's age to complete this topicHepatitis A VaccinesAged OutNo longer eligible based on patient's age to complete this topic Hepatitis B VaccinesAged OutNo longer eligible based on patient's age to complete this topicIPV VaccinesAged OutNo longer eligible based on patient's age to complete this topicMeningococcal B VaccineAged OutNo longer eligible based on patient's age to complete this topicMeningococcal VaccineAged OutNo longer eligible based on patient's age to complete this topicRotavirus VaccinesAged Out No longer eligible based on patient's age to complete this topic Insurance Care Teams Team MemberRelationshipSpecialtyStart DateEnd Date Benito Moreau MD [address] [place] [id number] PCP - GeneralFamily Medicine04/26/24 Génesis Hodegs NP [address] [place] [address] [place] [address] Nurse PractitionerNeurology06/16/24 Tremayne Aguirre DO [address] [place] [id number] Referring PhysicianNeurology06/16/24
--- OUTSIDE RECORDS SUMMARY | 2025-01-25 06:11 | XMS_ITS | Clinical Summary ---
Author Organization [facility] Address [address] [facility], [address] [place] [address] Care Team Providers Care Restoration Silversmith Name Role Phone Unavailable Primary Care Provider Unavailabl e Social History Tobacco UseTypesPacks/DayYears UsedDateSmoking Tobacco: Never AssessedSex and Gender InformationValueDate RecordedSex Assigned at BirthNot on fileLegal Sex Male05/03/2012 3:48 PM ESTGender IdentityNot on fileSexual OrientationNot on file Plan of Treatment DateTypeDepartmentCare Team (Latest Contact Info)Swyrqlphjys05/19/2026 10:00 AM EDTOffice Visit [facility] [address] [place] [address] [address] [place] [address] [place] [address] [place] [address] [address] [place] [address] [place] [facility] - COPD/ASTHMA
--- NOTE | 2025-01-25 06:28 | ED_ITS ---
HPI - Skin/Abscess/Foreign Bdy General Chief complaint: Extremity Problem, Nontraumatic Stated complaint: L FOOT- BLEEDING Time Seen by Provider: 01/25/25 06:27 Source: patient Mode of arrival: Wheelchair History of Present Illness HPI narrative: skin CA removed from left lower ext huang region yesterday. This AM woke up with bleeding from the site. Transferred to the ER by his . Denies other complaint Related Data Home Medications ?Medication ?Instructions ?Recorded ?Confirmed finasteride 5 mg tablet 5 mg PO DAILY 06/27/2305/28 simvastatin 40 mg tablet 40 mg PO DAILY 06/27/2310/15 venlafaxine 75 mg capsule,extended 75 mg PO DAILY 08/1405/28/24 release 24 hr donepezil 5 mg tablet 5 mg PO QPM 05/28/24 5 Allergies Allergy/AdvReac Type Severity Reaction Status Date / Time penicillin G Allergy Mild Verified 09/22/23 08:59 Sulfa (Sulfonamide Allergy Mild Verified 09/22/23 08:59 Antibiotics) Review of Systems 2 ROS0 Status of ROS 10 or more systems reviewed and unremark able except as noted in history and below [facility] Medical History (Updated 01/25/25 @ 06:53 by Aníbal Block MD) Dementia ?F03.90 - Unspecified dementia, unspecified severity, without behavioral disturbance, psychotic disturbance, mood disturbance, and anxiety (ICD-10) Depression ?F32.A - Depression, unspecified (ICD-10) High cholesterol ?E78.00 - Pure hypercholesterolemia, unspecified (ICD-10) Exam Constitutional Vital Signs, click to edit/add: Last Vital Signs Temp 97.7 F 01/25/25 06:06 Pulse 61 01/25/25 06:06 Resp 18 01/25/25 06:06 BP 141/85 01/25/25 06:06 Pulse Ox 98 01/25/25 06:06 O2 Del Method Room Air 01/25/25 06:06 Common normals: no apparent distress, average body habitus, oriented x3, no limitations, healthy appearing, alert and well nourished [facility] Common normals: normocephalic and head/scalp atraumatic Eye Common normals: PERRL and EOMs intact bilaterally Respiratory Common normals: normal respiratory effort, no retractions and clear to auscultation bilaterally Cardio Common normals: regular rate, regular rhythm, S1 normal heart sound and S2 normal heart sound Extremity Extremity image (front): 2 1. skin site bleeding. epithelial aspect of the skin removed and underlying dermis exposed. small bleeder Neuro Common normals: oriented x3, CN's II-XII intact bilaterally, moves all extremities and no focal motor deficits Psych Appearance: grossly normal Course Vital Signs Vital signs: Vital Signs Temperature 97.7 F 01/25/25 06:06 Pulse Rate 61 01/25/25 06:06 Respiratory Rate 18 01/25/25 06:06 Blood Pressure 141/85 01/25/25 06:06 Pulse Oximetry 98 01/25/25 06:06 Oxygen Delivery Method Room Air 01/25/25 06:06 Temperature 97.7 F 01/25/25 06:06 Pulse Rate 61 01/25/25 06:06 Respiratory Rate 18 01/25/25 06:06 Blood Pressure 141/85 01/25/25 06:06 Pulse Oximetry 98 01/25/25 06:06 Oxygen Delivery Method Room Air 01/25/25 06:06 MDM - Skin/Abscess/Foreign Bdy MDM Narrative Medical decision making narrative: skin removed yesterday for CA. site now bleeding. AgNo3 used to help slow the bleeding down and pressure dressing applied. CBC and BMP pending. Care transferred at change of shift Discharge Plan Discharge Patient Disposition: Still a Patient
[2025-01-25] MEDS: SILVER NITRATE APPLICATOR STICK 5 APPLIC TOPICAL (06:37)
--- NOTE | 2025-01-25 06:42 | PC.NURSE ---
5 sticks silver nitrate used at bedside by ER DR, bleeding controlled and and ABD x's 2 applied with Coban for pressure dressing.
[2025-01-25 06:49] LABS: Hematocrit 43.7 % (42.0-54.0); Hemoglobin 14.4 g/dL (14.0-18.0); Immature Granulocytes Abs Auto 0.02 10^3/uL (0.00-0.03); Immature Granulocytes Pct Auto 0.2 % (0.0-0.5); Lymphocytes Absolute Auto 2.1 10^3/uL (1.2-3.8); Mean Corpuscular HGB Conc 33.0 g/dL (29.9-35.2); Mean Corpuscular Hemoglobin 31.6 pg (25.9-34.0); Mean Corpuscular Volume 96.0 fL (80.0-94.0); Platelet Count 259 10^3/uL (150-450); Red Blood Count 4.55 10^6/uL (4.70-6.10); White Blood Count 9.8 10^3/uL (4.0-11.0)
[2025-01-25 06:56] LABS: Anion Gap 13.0; Blood Urea Nitrogen 18.0 mg/dL (7.0-18.0); Calcium 9.9 mg/dL (8.5-10.1); Carbon Dioxide 29.6 mmol/L (21.0-32.0); Chloride 104 mmol/L (98-107); Estimated GFR (African America >60 (>=60 mL/min/1.73m^2); Estimated GFR (Non-African Ame >60 (>=60 mL/min/1.73m^2); Glucose 122 mg/dL (74-106); Potassium 4.6 mmol/L (3.5-5.1); Sodium 142 mmol/L (136-145)
[2025-01-25 07:22] VITALS: BP 118/69; PULSE 67; O2SAT 99
== END 2025-01-25 07:29 | disposition home or self-care (01) ==
PROVIDERS: Emergency Provider Internal Medicine; PCP Family Medicine
DX: L76.21 Postprocedural hemorrhage of skin and subcutaneous tissue following a dermatologic procedure (principal); Z85.828 Personal history of other malignant neoplasm of skin
CPT/HCPCS: 36415; 80048; 85025; 99283

== ENCOUNTER 2025-01-27 18:00 | Emergency (ER) | payer MEDICARE, SELFPAY ==
--- OUTSIDE RECORDS SUMMARY | 2024-04-13 03:00 | XMS_ITS ---
Author Organization [facility] in [place] Address [address] [place] [address] Care Team Providers Care Band Instrument Repairer Name Role Phone Benito Moreau DO Primary Care Provider UnavailAugie Jarrett Unavailable [phone] REASON FOR VISIT 3 month F/U asthma/copd overlap Encounters Encounter Location Date Provider Diagnosis Pulmonary Medicine [address] [place] [address] 04/13/2024 Augie Avalos Plan Of Treatment Next Appt Details Provider Name:AKOSUA MORSE, 02/02/2025 01:15:00 PM, [address] [place] [address], [phone], Provider Name:AKOSUA UMAÑAOW, 03/01/2025 09:00:00 AM, [address] [place] [address], [phone], Provider Name:AKOSUA UMAÑAOW, 03/01/2025 09:15:00 AM, [address] [place] [address], [phone], Provider Name:AKOSUA UMAÑAOW, 03/15/2025 09:00:00 AM, [address] [place] [address], [phone], Provider Name:AKOSUA UMAÑAOW, 06/29/2025 01:00:00 PM, [address] [place] [address], [phone], Progress Notes * Hesham RICARDO DDOB: [birth year] (79 yo M)Acc No.[id number]:04/13/2024 UNLOCKED PROGRESS NOTE Follow Up Patient: Hesham WILLARD :?Augie Avalos, DODOB:1945???Age:78 Y ???Sex:MaleDate:04/13/2024Phone:[phone]:[address] [place] [address] [id number]:Benito Moreau DO Subjective: * Chief Complaints: * 1 . 3 month F/U asthma/copd overlap. * Medical History: Objective: * Vitals: Assessment: Plan: * Treatment: * * Electronic signature of Augie Avalos DO on 01/27/2025 at 06:39 PM ESTSign off status: PendingVisit Status:?R/S (Rescheduled) * Provider: Ladan Avalos DO Date: 0 04/13/2024 Generated for Printing/Faxing/eTransmitting on:?01/27/2025 06:39 PM EST
--- OUTSIDE RECORDS SUMMARY | 2024-05-05 04:45 | XMS_ITS ---
Author Organization The [facility] in [place] Address [address] [place] [address] Care Team Providers Care Grocery Clerk Stocking Name Role Phone Benito Moreau DO Primary Care Provider Unavailab Akosua Jenkins [phone] REASON FOR VISIT bm 6mo fbse, schedule PDT Encounters Encounter Location Date Provider Diagnosis [facility] [address] [place] [phone] 05/05/2024 Akosua Carreno Plan Of Treatment Next Appt Details Provider Name:AKOSUA MORSE, 02/02/2025 01:15:00 PM, [address] [place] [address], [phone], Provider Name:AKOSUA MORSE, 03/01/2025 09:00:00 AM, [address] [place] [address], [phone], Provider Name:AKOSUA MORES, 03/01/2025 09:15:00 AM, [address] [place] [address], [phone], Provider Name:AKOSUA MORSE, 03/15/2025 09:00:00 AM, [address] [place] [address], [phone], Provider Name:AKOSUA MORSE, 06/29/2025 01:00:00 PM, [address] [place] [address], [phone], Progress Notes * YARED Hesham DDOB: [birth year] (79 yo M)Acc No.[id number]:05/05/2024 UNLOCKED PROGRESS NOTE Established Patient: Hesham WILLARD :?CUATE ChakrabortyCDOB:1945???Age: 78 Y???Sex:MaleDate:05/05/2024Phone:[phone]:[address] [place] [id number]:Benito Moreau DO Subjective: * Chief Complaints: * 1 . bm 6mo fbse, schedule PDT. * Medical History: Objective: * Vitals: Assessment: Plan: * Treatment: * * Electronic signature of Akosua Carreno PA-C on 01/27/2025 at 06:40 PM EST Sign off status: PendingVisit Status:?LATE CANC (Late Cancel) * Provider: Saskia Carreno PA-C Date: 0 05/05/2024 Generated for Printing/Faxing/eTransmitting on:?01/27/2025 06:40 PM EST
--- OUTSIDE RECORDS SUMMARY | 2024-09-08 08:00 | XMS_ITS ---
Author Organization [facility] in [place] Address [address] [place] [address] Care Team Providers Care Photo Booth Operator Name Role Phone Benito Moreau DO Primary Care Provider Unavailab Akosua Jenkins Unavailable [phone] REASON FOR VISIT mts concerning spot between eyebrows Encounters Encounter Location Date Provider Diagnosis [facility] [address] [place] [address] 09/08/2024 Akosua Carreno Other skin changes due [...] Details Provider Name:AKOSUA MORSE, 02/02/2025 01:15:00 PM, [address] [place], [address], Provider Name:AKOSUA UMAÑAOW, 03/01/2025 09:00:00 AM, [address] [place] [address], [phone], Provider Name:AKOSUA MORSE, 03/01/2025 09:15:00 AM, [address] [place] [address], [phone], Provider Name:AKOSUA UMAÑAOW, 03/15/2025 09:00:00 AM, [address] [place] [address], [address], Provider Name:AKOSUA MORSE, 06/29/2025 01:00:00 PM, [address] [place] [address], [address], Progress Notes * Hesham RICARDO DDOB: [birth year] (79 yo M)Acc No.[id number]:09/08/2024 UNLOCKED PROGRESS NOTE Established Patient: Hesham WILLARD Jeff :?CUATE ChakrabortyCDOB:1945???Age: 78 Y???Sex:MaleDate:09/08/2024Phone:[phone]:[address] [place] [address]Pcp:Anila Saeed In:01:00 PM ESTCheck Out: 01:28 PM [...] 06:40 PM EST Sign off status: PendingVisit Status:?CHK (Check Out) * Provider: Saskia Carreno PA-C Date: 0 09/08/2024 Generated for Printing/Faxing/eTransmitting on:?01/27/2025 06:40 PM EST
--- OUTSIDE RECORDS SUMMARY | 2024-09-28 08:15 | XMS_ITS ---
Author Organization [facility] in [place] Address [address] [place] [address] Care Team Providers Care Supervisor Counseling And Guidance Name Role Phone Benito Moreau DO Primary Care Provider Unavailab Akosua Jenkins [phone] REASON FOR VISIT rm bm 6mo fbse, schedule PDT Encounters Encounter Location Date Provider Diagnosis [facility] [address] [place] [address] 09/28/2024 Akosua Carreno Plan Of Treatment Next Appt Details Provider Name:AKOSUA MORSE, 02/02/2025 01:15:00 PM, [address] [place] [address], [address], Provider Name:AKOSUA MORSE, 03/01/2025 09:00:00 AM, [address] [place] [address], [address], Provider Name:AKOSUA MORSE, 03/01/2025 09:15:00 AM, [address] [place] [address], [address], Provider Name:AKOSUA MORSE, 03/15/2025 09:00:00 AM, [address] [place] [address], [address], Provider Name:AKOSUA MORSE, 06/29/2025 01:00:00 PM, [address] [place] [address], [address], Progress Notes * Hesham RICARDO DDOB: [birth year] (79 yo M)Acc No.[id number]:09/28/2024 UNLOCKED PROGRESS NOTE Established Patient: Hesham WILLARD :?CUATE ChakrabortyCDOB:1945???Age: 79 Y???Sex:MaleDate:09/28/2024Phone:[phone]:[address] [place] [address]Pcp:Benito Moreau DO Subjective: * Chief Complaints: * 1 . rm bm 6mo fbse, schedule PDT. * Medical History: Objective: * Vitals: Assessment: Plan: * Treatment: * * Electronic signature of Akosua Carreno PA-C on 01/27/2025 at 06:41 PM EST Sign off status: PendingVisit Status:?CANC (Cancelled) * Provider: Saskia Carreno PA-C Date: 0 09/28/2024 Generated for Printing/Faxing/eTransmitting on:?01/27/2025 06:41 PM EST
--- OUTSIDE RECORDS SUMMARY | 2024-12-28 06:00 | XMS_ITS ---
Author Organization The [facility] in [place] Address [address] [place] [address] Care Team Providers Care Web Marketing Manager Name Role Phone Benito Moreau DO Primary Care Provider Unavailab AKOSUA Solis Unavailable [phone] REASON FOR VISIT rm rm bm 6mo fbse, schedule PDT Encounters Encounter Location Date Provider Diagnosis [facility] [address] [place] [address] 12/28/2024 AKOSUA CHAPMAN Other skin changes due [...] Details Provider Name:AKOSUA MORSE, 02/02/2025 01:15:00 PM, [address] [place] [address], [address], Provider Name:AKOSUA MORSE, 03/01/2025 09:00:00 AM, [address] [place] [address], [address], Provider Name:AKOSUA MORSE, 03/01/2025 09:15:00 AM, [address] [place] [address], [address], Provider Name:AKOSUA MORSE, 03/15/2025 09:00:00 AM, [address] [place] [address], [address], Provider Name:AKOSUA MORSE, 06/29/2025 01:00:00 PM, [address] [place] [address], [address], Progress Notes * Hesham RICARDO DDOB: [birth year] (79 yo M)Acc No.[id number]:12/28/2024 UNLOCKED PROGRESS NOTE Established Patient: Osmani MAGDALENAARTURHesham :?AKOSUA Alejandra CHACHA CHAPMAN-CDOB:1945???Age: 79 Y???Sex:MaleDate:12/28/2024Phone:[phone]:[address] [place] [address]Pcp:Anila Saeed In:10:59 AM ESTCheashley Out: 11:45 AM EST Subjective: * Chief [...] 1 7004 DESTROY LESIONS, 15 OR MORE, 17722 PUNCH BIOPSY OF SKIN, SINGLE LESION, TthNo: 59, Srfc: , Modifiers: 59 , 10071 PUNCH BIOPSY OF SKIN, EACH ADDL LESION, TthNo: 59, Srfc: , Modifiers: 59 , 60109 TANGENTIAL BIOPSY OF SKIN ADDT, TthNo: 59, Srfc: , Units: 3.00 , Modifiers: 59 , 52724 BIOPSY OF EXTERNAL EAR, TthNo: 59~LT, Srfc: , Modifiers: 59 , LT * * Electronic signature of AKOSUA CHAPMAN PA-C, [id number] on 01/27/2025 at 06:39 PM ESTSign off status: PendingVisit Status:?CHK (Check Out) * Provider: Saskia CHAPMAN PA-C Date: Generated for Printing/Faxing/eTransmitting on:?01/27/2025 06:39 PM EST
--- OUTSIDE RECORDS SUMMARY | 2025-01-05 05:30 | XMS_ITS ---
Author Organization The [facility] in [place] Address [address] [place] [address] Care Team Providers Care Manufacturing Worker Name Role Phone Benito Moreau DO Primary Care Provider Unavailab AKOSUA Solis Unavailable [phone] REASON FOR VISIT bm PDT 1 Encounters Encounter Location Date Provider Diagnosis [facility] [address] [place] [address] 01/05/2025 AKOSUA CHAPMAN Plan Of Treatment Next Appt Details Provider Name:AKOSUA MORSE, 02/02/2025 01:15:00 PM, [address] [place] [address], [address], Provider Name:AKOSUA MORSE, 03/01/2025 09:00:00 AM, [address] [place] [address], [address], Provider Name:AKOSUA MORSE, 03/01/2025 09:15:00 AM, [address] [place] [address], [address], Provider Name:AKOSUA MORSE, 03/15/2025 09:00:00 AM, [address] [place] [address], [address], Provider Name:AKOSUA MORSE, 06/29/2025 01:00:00 PM, [address] [place] [address], [address], Progress Notes * Hesham RICARDO DDOB: [birth year] (79 yo M)Acc No.[id number]:01/05/2025 UNLOCKED PROGRESS NOTE Progress Note Patient: Hesham WILLARD :?CUATE FRIASCDOB:1945???Age: 79 Y???Sex:MaleDate:01/05/2025Phone:[phone]:[address] [place] [address]Pcp:Benito Moreau DO Subjective: * Chief Complaints: * 1 . bm PDT 1. * Medical History: Objective: * Vitals: Assessment: Plan: * Treatment: * * Electronic signature of AKOSUA CHAPMAN PA-C, [id number] on 01/27/2025 at 06:40 PM ESTSign off status: PendingVisit Status:?CANC (Cancelled) * Provider: Saskia CHAPMAN PA-C Date: 1 Generated for Printing/Faxing/eTransmitting on:?01/27/2025 06:40 PM EST
--- OUTSIDE RECORDS SUMMARY | 2025-01-19 05:15 | XMS_ITS ---
Author Organization The [facility] in [place] [employer] Address [address] [place] [address] Care Team Providers Care Tube Knitter Name Role Phone Benito Moreau DO Primary Care Provider Unavailab AKOSUA Solis Unavailable [phone] REASON FOR VISIT bm PDT 1, re-eval A: epigastric skin Encounters Encounter Location Date Provider Diagnosis [facility] [address] [place] [address] 01/19/2025 AKOSUA BUSHLAXMI Actinic keratosis L57.0 Assessments Encounter Date Diagnosis (ICD Code) Assessment Notes Treatment Notes Treatment Clinical Notes Section Notes 01/19/2025 Actinic keratosis (ICD-10 - L57. 0) Plan Of Treatment Next Appt Details Provider Name:AKOSUA UMAÑAOW, 02/02/2025 01:15:00 PM, [address] [place] [address], [address], Provider Name:AKOSUA Alejandra DUSTIN HROW, 03/01/2025 09:00:00 AM, [address] [place] [address], [address], Provider Name:AKOSUA M DUSTIN OW, 03/01/2025 09:15:00 AM, [address] [place] [address], [address], Provider Name:AKOSUA Justyn DUSTIN UMAÑAOW, 03/15/2025 09:00:00 AM, [address] [place] [address], [address], Provider Name:AKOSUA CHAN MINI, 06/29/2025 01:00:00 PM, [address] [place], [address], Progress Notes * Hesham RICARDO DDOB: [birth year] (79 yo M)Acc No.[id number]:01/19/2025 UNLOCKED PROGRESS NOTE Progress Note Patient: Hesham WILLARD :?CUATE FRIASCDOB:1945???Age: 79 Y???Sex:MaleDate:01/19/2025Phone:[phone]:[address] [place] [address]Pcp:Anila Saeed In:09:49 AM ESTCheck Out: 11:18 AM [...] * Electronic signature of AKOSUA CHAPMAN PA-C, [id number] on 01/27/2025 at 06:39 PM ESTSign off status: PendingVisit Status:?CHK (Check Out) * Provider: Saskia CHAPMAN PA-C Date: 1 Generated for Printing/Faxing/eTransmitting on:?01/27/2025 06:39 PM EST
--- OUTSIDE RECORDS SUMMARY | 2025-01-24 08:30 | XMS_ITS ---
Author Organization The [facility] in [place] Address [address] [place] [address] Care Team Providers Care Armhole Baster Jumpbasting Name Role Phone Keith Moreau DO Primary Care Provider Unavailab KEITH Tucker Unavailable [phone] REASON FOR VISIT SCC left distal pretibial region [id number] Encounters Encounter Location Date Provider Diagnosis [facility] [address] [place] [phone] 01/24/2025 KEITH VELÁSQUEZ Venous insufficiency (chronic) (peripheral) [...] Next Appt Details Provider Name:AKOSUA Justyn DUSTIN HROW, 02/02/2025 01:15:00 PM, [address] [place] [address], [phone], Provider Name:AKOSUA CHAN HROW, 03/01/2025 09:00:00 AM, [address] [place] [address], [phone], Provider Name:AKOSUA CHAN HROW, 03/01/2025 09:15:00 AM, [address] [place] [address], [phone], Provider Name:AKOSUA MORSE, 03/15/2025 09:00:00 AM, [address] [place], [address], Provider Name:AKOSUA MORSE, 06/29/2025 01:00:00 PM, [address] [place], [address], Progress Notes * Hesham RICARDO DDOB: [birth year] (79 yo M)Acc No.[id number]:01/24/2025 UNLOCKED PROGRESS NOTE Patient:?Hesham RICARDO :?KEITH VELÁSQUEZ, MDDOB:1945???Age:79 Y ???Sex:MaleDate:01/24/2025Phone:[phone]:[address] [place] [phone]:Anila Saeed In:01:21 PM ESTCheck Out:03:14 PM EST Subjective: * Chief Complaints: * 1 . SCC left distal pretibial region [id number]. * Medical History: Objective: * Vitals: Assessment: * Assessment: 1.?Venous insufficiency (chronic) (peripheral) - I87.2???2.?Squamous cell c arcinoma of skin of left lower limb, including hip - C44.729??? Plan: * Treatment: * Procedure Codes: 1 7313 MOHS, 1 STAGE, T/A/L, [address]208 MOHS, ADDL STAGE, T/A/L, Units: 2.00 * * Electronic signature of KEITH VELÁSQUEZ MD on 01/27/2025 at 06:41 PM ESTSign off status: PendingVisit Status:?CHK (Check Out) * Provider: Jeff VELÁSQUEZ MD Date: 03/26/2024 Generated for Printing/Faxing/eTransmitting on:?01/27/2025 06:41 PM EST
[2025-01-27 18:06] VITALS: BP 160/83; PULSE 77; TEMP 36.6; O2SAT 100; BMI 22.2
[2025-01-27] MEDS: SURGIFOAM GEL SPONGE SIZE 100 1 EACH TOPICAL (18:33)
--- NOTE | 2025-01-27 18:36 | ED.WOUNDLAC1 ---
HPI - Wound/Laceration General Chief Complaint: Wound/Laceration Stated Complaint: Bleeding Lower Leg Time Seen by Provider: 01/27/25 18:12 Source: patient Mode of arrival: Wheelchair History of Present Illness HPI narrative: The patient presented to us for evaluation of his left lower extremity wound that started bleeding after he had multiple skin lesion removed a few days ago and an outpatient clinic but he started bleeding after that and he presented to us yesterday after which she had some silver nitrate cauterized of the area, he remove the dressing today to have a shower and the bleeding started Related Data Home Medications ?Medication ?Instructions ?Recorded ?Confirmed finasteride 5 mg tablet 5 mg PO DAILY 06/27/23 01/27/25 simvastatin 40 mg tablet 40 mg PO DAILY 06/27/23 01/27/25 venlafaxine 75 mg capsule,extended 75 mg PO DAILY 06/27/23 01/27/25 release 24 hr donepezil 5 mg tablet 5 mg PO QPM 05/28/24 01/27/25 Previous Rx's ?Medication ?Instructions ?Recorded bacitracin 500 unit/gram topical 1 applic topical DAILY #14 grams 01/27/25 ointment Allergies Allergy/AdvReac Type Severity Reaction Status Date / Time penicillin G Allergy Mild Verified 09/22/23 08:59 Sulfa (Sulfonamide Allergy Mild Verified 09/22/23 08:59 Antibiotics) Review of Systems ROS Status of ROS 10 or more systems reviewed and unremarkable except as noted in history and below [facility] Medical History (Updated 01/27/25 @ 18:37 by Ashly Walton MD) Dementia ?F03.90 - Unspecified dementia, unspecified severity, without behavioral disturbance, psychotic disturbance, mood disturbance, and anxiety (ICD-10) Depression ?F32.A - Depression, unspecified (ICD-10) High cholesterol ?E78.00 - Pure hypercholesterolemia, unspecified (ICD-10) Social History Little interest or pleasure in doing things: not at all Feeling down, depressed, or hopeless: not at all Exam Narrative Exam Narrative: Nurses notes and vital signs reviewed and patient is not hypoxic. General: Well-appearing and in no apparent distress. Skin: Warm, dry, no pallor noted. Left lower extremity: Just above the ankle on the left side the patient have a wound that is almost 10 x 2 cm that is not bleeding at the moment. No vascular injury detected and the wound looks like an ulcer that is stage III Neurological: A&O x4. No cranial nerve dysfunction observed. No truncal ataxia. Moves all extremities. Sensation intact. Psychiatric: Cooperative and interactive. Normal mood and affect. Constitutional Vital Signs, click to edit/add: Last Vital Signs Temp 97.8 F 01/27/25 18:06 Pulse 77 01/27/25 18:06 Resp 18 01/27/25 18:06 BP 160/83 H 01/27/25 18:06 Pulse Ox 100 01/27/25 18:06 O2 Del Method Room Air 01/27/25 18:06 Course Vital Signs Vital signs: Vital Signs Temperature 97.8 F 01/27/25 18:06 Pulse Rate 77 01/27/25 18:06 Respiratory Rate 18 01/27/25 18:06 Blood Pressure 160/83 H 01/27/25 18:06 Pulse Oximetry 100 01/27/25 18:06 Oxygen Delivery Method Room Air 01/27/25 18:06 Temperature 97.8 F 01/27/25 18:06 Pulse Rate 77 01/27/25 18:06 Respiratory Rate 18 01/27/25 18:06 Blood Pressure 160/83 H 01/27/25 18:06 Pulse Oximetry 100 01/27/25 18:06 Oxygen Delivery Method Room Air 01/27/25 18:06 MDM - Wound/Laceration MDM Narrative Medical decision making narrative: Gelfoam was placed to make sure that the patient will not have no further bleeding Instruction whether the patient leave the Gelfoam for the next 48 hours in addition to removing that after and doing dressing every other day with applying bacitracin to the area The patient to follow-up with the primary care within 2 to 3 days and to come back to the ER in case of any worsening of the current symptoms or any new symptoms or concerns Discharge Plan Discharge Chief Complaint: Wound/Laceration Clinical Impression: Visit for wound care Patient Disposition: Home, Self-Care Time of Disposition Decision: 18:36 Condition: Good Prescriptions / Home Meds: New bacitracin 500 unit/gram ointment 1 applic topical DAILY Qty: 14 0RF No Action donepezil 5 mg tablet 5 mg PO QPM finasteride 5 mg tablet 5 mg PO DAILY simvastatin 40 mg tablet 40 mg PO DAILY venlafaxine 75 mg capsule,extended release 24hr 75 mg PO DAILY Print Language: Greenlandic Instructions: Acute Wounds (DC) Additional Instructions: Please leave the Gelfoam on for 8 hours and after that you can start doing the dressing every other day but keep the lower extremity clean and dry for the next 7 days Referrals: KEITH ATKINSON [Primary Care Provider, Family Practice] - 1 week
--- OUTSIDE RECORDS SUMMARY | 2025-01-27 18:39 | XMS_ITS | Clinical Summary ---
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 Name Role Phone Kun Olvera Primary Care Provider [phone] Allergies Active AllergyReactionsCriticalityNoted XemgNtypbiyrLsnqzmswacyCftq23/06/2002 Sulfa (Sulfonamide Antibiotics)Rash05/27/2001 Medications MedicationSigDispense QuantityRefillsLast FilledStart DateEnd DateStatus CELEBREX 200 MG CAP Take one(1) tablet two(2) times daily.ctive Additional Information Patient not taking.Reported on 09/29/2020 SOMA 350 MG TAB Take one(1) tablet three times daily as kejflbjjy311/10/2007ctive PERCOCET 5 MG-325 MG TAB Take one(1) [...] FLULAVAL, FLUZONE)12/22/2018,01/20/2017 influenza vaccine, whole virus01/10/2009novel influenza (I8Z4-44) vaccine, PF 03/30/2009pneumococcal polysaccharide (PPV23) vaccine, 23 valent (PNEUMOVAX 23) 01/20/2017tetanus toxoid (TT) wtgvltw5810/05/2017 Family History Medical HistoryRelationCommentsmultiple sclerosis [Other]BrotherCancerFather ThyroidMaternal GrandmotherPsychiatryMotherStrokePaternal Grandfatherkidney [Other]Sisterdeceased, renal failure age 50CancerSonbrain tumor, 2000 RelationStatusCommentsBrotherFatherMaternal GrandmotherMotherPaternal GrandfatherSisterSon Social History Tobacco UseTypesPacks/DayYears UsedDateSmoking Tobacco: [id number] - 2007Smokeless Tobacco: Never Comments:previously quit 10 years, smoked 30 years before that Alcohol UseStandard Drinks/WeekCommentsYes0 (1 standard drink = 0.6 oz pure alcohol)once every 3 monthsArea Deprivation IndexAnswerDate RecordedNational Score (1-100), lower number is lower riskNot on file02/29/2020State Score (1- 10), lower number is lower riskNot on file02/29/2020Data from: https://www.neighborhoodatlas.[facility].edu/. 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 closedNot on fileNot on fileNot on file Last Filed Vital Signs Vital SignReadingTime TakenCommentsBlood Mwumdyco601/7107/11/2020 9:07 AM EDT Ntetv9665 9:07 AM MXRDjhivbsiaiz27.4 ??C (97.6 ??F)05/12/2019 9:24 AM ESTRespiratory Rate--Oxygen Sumfztfrof88%09/29/2020 9:07 AM EDTRAInhaled Oxygen Concentration--Rvectc98.4 kg (153 lb)09/29/2020 9:07 AM GEWChqahp002.8 cm (5' 10 )05/12/2019 9:24 AM ESTBody Mass Index21.95005/12/2019 9:24 AM EST Plan of Treatment Health MaintenanceDue DateLast DoneCommentsAnxiety Sehgjawok28/29/1966Depression Rehtlrqgq66/29/1966Hepatitis C Hmizzgeac63/29/1966DTaP,Tdap,Td Vaccine (1 - Tdap)09/19/1966Diabetes Bkopgrrti50/29/1993RSV Vaccine (1 - 1-dose 75+ series) 09/19/2022dvance Directive Ytplcbxstb44/01/2025ovid-19 Vaccine ( season)2020, 05/01/2020Influenza Vaccine (#1)2024 12/23/2019, 12/28/2018, 12/22/2018, Additional history existsPneumococcal Vaccine: 50+Jawrllidj95/01/2020, 01/20/2017Shingrix VzpajuqXmjdexkci34/24/2021, 03/21/2020 Insurance Care Teams Team MemberRelationshipSpecialtyStart DateEnd Date Kun Olvera [address] [place] [address] [facility]06/26/01
--- OUTSIDE RECORDS SUMMARY | 2025-01-27 18:39 | XMS_ITS | CCD ---
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 Name Role Phone Keith Atkinson Unavailable Keith Puente Unavailable Keith Atkinson Primary Care Physician [phone] Teetee Gonzalez Unavailable Unavailable [place], DR PARKER [...] Unavailable Keith Atkinson MD Primary Care Provider [phone] Keith Atkinson DO Primary Care Provider [phone] Se Starkey DO Attending Provider Marcela Keller MD Admit Provider Azael Stewart DO Other Provider Génesis Hodges NP Unavailable Casper Aguirre DO Unavailable [phone] Keith Atkinson MD Primary Care Provider Keith Atkinson MD Primary Care Provider [phone] Keith Atkinson MD Primary Care Provider [phone] CASPER AGUIRRE Attending Unavailable GÉNESIS HODGES Attending Unavailable COLLIN IQBAL Attending Unavailable GÉNESIS HODGES Referring Unavailable CAROL FRANCO Attending Unavailable GÉNESIS HODGES Attending Unavailable Keith Atkinson DO Primary Care Provider Andrez Toledo MD Attending Provider Carroll HAIRSTON-[employer] PROFESSOR-Génesis Trujillo Attending Provider Keith Atkinson DO Attending Provider Andrez Toledo MD Other Provider [phone] Keith Atkinson Primary Care Unavailable Andrez Toledo Admitting Unavailable Andrez Toledo Attending Unavailable Keith Atkinson Admitting Unavailable Keith Atkinsno Primary Care Unavailable Keith Atkinson Attending Unavailable Azael Stewart Consulting Unavailable Keith Atkinson Primary Care Unavailable Marcela Keller Admitting Unavailable Se Starkey Attending UnavailMyles Avalos APRN Attending Provider Allergies Allergy ClassificationReported Allergen(s)Allergy TypeDate of OnsetReaction(s) Facility (20 sources)Penicillin; Translations: [penicillin][facility]hi[facility] (20 sources)SulfacetamideDrug Thytrev61-38-4704ywhxxNhyyqtmcbOhioHealth [facility] (20 sources)Penicillins; Translations: [penicillins]Drug xwgfnme20-19-4101Rznce, Unknown Reaction, hivesExecutive [facility]rology of [facility] comment on above:pt able to take albuterol (6 sources)Sulfonamides (Antibiotic); Translations: [sulfa drugs]Drug allergy HivesExecutive [facility]rology of [facility] (1 source)Sulfonamides (Antibiotic)Drug allergy (disorder)[facility] (11 sources)Sulfonamides (Antibiotic); Translations: [Sulfa (Sulfonamide Antibiotics)]Allergy to efnjhjqqv02-07-7928DcbdefvOhio[facility] (15 sources)Sulfonamides (Antibiotic)Propensity to adverse bdtwanbio51-40-6691 [facility] (1 source)SulfacetamideDrug Gcopsac03-29-3185ElwbiqmztHenry [facility] Hospital [facility] Medications Current Medications MedicationDrug Class(es)DatesSig (Normalized)Sig (Original)[id number] 200 actuat albuterol 0.09 mg/actuat metered dose inhaler (18 sources)beta2-Adrenergic AgonistStart: 77-25-0886Lhxeghtki Sulfate (Proair Hfa) 90 mcg/actuation HFA aerosol inhaler Active 2 INH INHALATION Every 4hours September 26, 2023 12:00am Complies with drug therapyStart: 56-52-2115QadGeb HFA 108 (90 Base) MCG/ACT NICK 2 inhalations Inhalation up to 4 times per day prn Vwknqw568 actuat budesonide 0.16 mg/actuat / formoterol fumarate 0.0048 mg/actuat / glycopyrrolate 0.009 mg/actuat metered dose inhaler (2 sources)Corticosteroid, beta2-Adrenergic AgonistStart: 10-13-2024 Yrrejpjkhx-Dvjuzxge-Crqjnggdql (Breztri Aerosphere) 160-9-4.8 mcg/actuation HFA aerosol inhaler Active 2 INH INHALATION Daily October 13, 2024 12:00am Complies with drug therapyciprofloxacin 500 mg oral tablet (1 source)Quinolone AntimicrobialStart: 05-12-2023 End: 00-34-9515rull 1 tablet by mouth every twelve hoursCipro 500 mg Tab 500 mg = 1 tab(s), Oral, q12hr, X 4 week(s), # 56 tab(s), Refills(s) 0, Pharmacy: [facility]/pharmacy #[id number], 177, cm, 01/27/23 11:11:00 EST, Height/Length Dosing, 74, kg, 01/27/23 11:11:00 EST, Weight Dosing Start Date: 05/12/23 Stop Date: 06/09/23 Status: OrderedCoenzyme Q10 200 mg oral capsule (5 sources)Start: 36-51-5744nrbu 1 capsule by mouth once dailyCoenzyme Q10 200 mg oral capsule 1cap, Oral, Daily, Refills(s) 0, High cholesterol Start Date: 07/11/17 Status: Ordereddicyclomine hydrochloride 20 mg oral tablet (12 sources)AnticholinergicStart: 28-64-2124rerw 1 mg by mouth four times daily dicyclomine 20 mg Tab mg tab(s), Oral, QID, Refills(s) 0 Start Date: 03/29/19 Status: OrderedDicyclomine HCl 20 MG 1 tablet Orally q6-8 hrs prn Activedocusate sodium 50 mg / sennosides, fpc 8.6 mg oral tablet (3 sources)Start: 13-95-4974mehb 2 tablets by mouth every twelve hoursSenokot S 8.6-50 MG 2 TABLETS Orally TWICE A DAY for 30 day(s) Apr, Active donepezil hydrochloride 5 mg oral tablet (20 sources)Start: 10-11-2024 End: 21-02-4649ckpy 1 tablet by mouth once daily at bedtimeDonepezil 5 mg tablet Active 5 MG PO Daily at bedtime November 15, 2024 3:31pm Complies with d rug therapyStart: 84-93-7007qdan 1 tablet by mouth at bedtimedonepezil (Aricept) 5 MG tablet Indications: Mild cognitive impairment TAKE 1 TABLET BY MOUTH AT BED TIME 90 tablet 1 05/19/2024 Activefinasteride 5 mg oral tablet (20 sources)5-alpha Reductase InhibitorStart: 57-30-3952yrwa 1 tablet by mouth once dailyFinasteride 5 mg tablet Active 5 MG PO Daily August 21, 2021 12:00am Complies with drug therapyFish Oils (5 sources)Start: 13-15-9159nseg 1200 mg by mouth once dailyFish Oil 1,200 mg, Oral, Daily, Refill(s) 0, Prophylaxis Start Date: 01/10/17 Status: Ordered hyoscyamine sulfate 0.125 mg oral tablet (1 source)Start: 76-90-5211agzk 1 tablet by mouth four times dailyhyoscyamine 0.125 mg oral Tab 0.125 mg = 1 tab(s), Oral, QID, Refills(s) 0 Start Date: 03/29/19 Status: Orderedmecobalamin 1 mg chewable tablet (17 sources)Start: 09-26-2023 End: 56-83-6343dkue 1 tablet by mouth once dailyMecobalamin (Vitamin B12) 1,000 mcg tablet,chewable Active 1000 MCG PO Daily April 14, 2024 9:28am 1,000 mcg orally 1 tablet Orally qd x6 days a week; Complies with drug therapymeloxicam 15 mg oral tablet (5 sources)Nonsteroidal Anti-inflammatory DrugStart: 87-30-8059rzge 1 mg by mouth once dailymeloxicam 15 mg oral tablet mg tab(s), Oral, Daily, Refills(s) 0 Start Date: 03/04/19 Status: OrderedmetroNIDAZOLE 500 mg oral tablet (1 source)Nitroimidazole AntimicrobialStart: 42-97-1055rsaw 1 tablet by mouth every twelve hoursmetroNIDAZOLE 500 MG 1 tablet Orally Twice a day for 10 day(s) July, Activeniacinamide 100 mg oral tablet (15 sources)take 1 tablet by mouth in the morningniacinamide 100 MG tablet Take 100 mg by mouth in the morning and 100 mg in the evening. Take with meals. Activenystatin 187764 unt/ml oral suspension (10 sources)Polyene AntifungalStart: 80-86-8200Sbcqqwsd 611884 UNIT/ML 5 ml (2.5 ml each side of the mouth) Mouth/Throat qid for 7 days Apr, ActiveStart: 36-61-9003Fddktmjk 999738 UNIT/ML 5 ml (2.5 ml each side of the mouth) Mouth/Throat qid for 7 days Apr, Activeomeprazole 40 mg delayed release oral capsule (2 sources)Proton Pump InhibitorStart: 24-01-5606gdpb 1 capsule by mouth once dailyOmeprazole 40 mg capsule,delayed release(DR/EC) Active 40 MG PO Daily October 26, 2024 12:00am Complies with drug therapyProAir HFA 108 (90 Base) MCG/ACT (13 sources)Start: 96-42-3668GytIbl HFA 108 (90 Base) MCG/ACT 2 inhalations Inhalation up to 4 times per day May, Activepromethazine hydrochloride 25 mg oral tablet (5 sources)PhenothiazineStart: 86-48-4047bhdn 1 mg by mouth every six hours as needed for nauseapromethazine 25 mg Tab mg tab(s), Oral, q6hr, PRN as needed for nausea/vomiting, Refills(s) 0 StartDate: 03/29/19 Status: Orderedsimvastatin 40 mg oral tablet (20 sources)HMG-CoA Reductase InhibitorStart: 46-65-6421ahqp 1 tablet by mouth at bedtimeSimvastatin 40 mg tablet Active 0 .ROUTE .COMPLEX May 26, 2024 8:53am TAKE 1 TABLET BY MOUTH AT BEDTIME Complies with drug therapyStart: 10-14-2023 End: 15-97-9193rqlv 1 tablet by mouth once daily in the eveningSimvastatin 40 mg tablet Discontinued 40 MG PO Every evening October 14, 2023 8:28am May 2658:53amStart: 05-27-2023 End: 04-87-4210jabx 1 tablet by mouth at bedtimeSimvastatin 40 mg tablet Discontinued 0 .ROUTE .COMPLEX May 27, 2023 9:53am October 14, 2023 8:29am TAKE 1 TABLET BY MOUTH AT BEDTIMEStart: 05-27-2023 End: 74-51-5949wnau 1 tablet by mouth at bedtimeSimvastatin Discontinued 0 .ROUTE .COMPLEX May 27, 2023 9:53am October 14, 2023 8:29am TAKE 1 TABLET BY MOUTH AT BEDTIMEStart: 01-10-2017 End: 29-37-4724fwyq 1 tablet by mouth once dailySimvastatin 40 mg tablet Discontinued 40 MG PO Daily August 21, 2021 12:00am May 27, 2023 9:53am sucralfate 1000 mg oral tablet (1 source)Aluminum ComplexStart: 09-93-0582gtzp 1 tablet by mouth every eight hoursCarafate 1 GM 1 tablet on an empty stomach Orally tid for 30 day(s) Jun, Activeubidecarenone 30 mg oral capsule (20 sources)Start: 71-22-7103Qxecpfxy Q10 (Co Q-10) 30 mg Capsule Active [...] Nucleoside Analog DNA Polymerase InhibitorStart: 01-20-2024 End: 03-83-7308Ckylsyveline (Valtrex) 1 gram tablet Active 1000 MG PO Three times daily as needed for cold sores October 05, 2024 10:32am Complies with drug therapyStart: 11-17-2023 End: 08-43-2281kezo 1 tablet by mouth three times daily as neededValacyclovir (Valtrex) 500 mg tablet Discontinued 500 MG PO Three times daily as needed for cold sores November 17, 2023 12:00am November 19, 2023 1:57pmStart: 01-10-2017 End: 13-88-2523wbdc 1 tablet by mouth once dailyValacyclovir (Valtrex) 500 mg tablet Discontinued 500 MG PO Daily 90 November 19, 2023 1:57pm October 05, 2024 10:33amvalACYclovir HCl 500 mg TAKE 1 TABLET THREE TIMES A DAY FOR 10 DAYS DIRECTED NEEDED prn Not-Taking/PRN24 hr venlafaxine 75 mg extended release oral capsule (20 sources)Serotonin and Norepinephrine Reuptake InhibitorStart: 83-10-1811oqce 1 capsule by mouth once daily at mealtimeVenlafaxine 75 mg capsule,extended release 24hr Active 0 .ROUTE .COMPLEX 90 July 14, 2024 8:00amTAKE 1 CAPSULE BY MOUTH DAILY WITH FOOD Complies with drug therapyStart: 10-14-2023 End: 84-29-1646yjjt 1 capsule by mouth once dailyVenlafaxine 75 mg capsule,extended release 24hr Discontinued 75 MG PO Daily October 14, 2023 8:28am July 14, 2024 8:00amStart: 09-19-2023 End: 36-74-3203bblu 1 capsule by mouth once daily at mealtimeVenlafaxine 75 mg capsule,extended release 24hr Discontinued 0 .ROUTE .COMPLEX September 19, 2023 8:09am October 14, 2023 8:29am TAKE 1 CAPSULE BY MOUTH DAILY WITH FOODStart: 03-04-2019 End: 70-07-8401tbsi 1 capsule by mouth once daily at mealtimeVenlafaxine 75 mg capsule,extended release 24hr Discontinued 75 MG PO Daily September 19, 2023 12:00amJun2023 8:09am WITH FOODtake 1 tablet by mouth once daily venlafaxine (Effexor) 75 MG tablet Take 75 mg by mouth Daily Activevitamin b12 1 mg extended release oral tablet (20 sources)Vitamin M70Kvzzn: 50-48-6176mtze 1 tablet by mouth once dailyVitamin B12 1000 MCG 1 tablet Orally qd x6 days a week Aug, ActiveStart: 17-92-5997Citrdec B-12 100 microgram, Oral, MonFri, Refills(s) 0, Prophylaxis Start Date: 01/10/17 Status: Orderedtake 1 tablet by mouth once daily cyanocobalamin (Vitamin B-12) 1000 MCG tablet Take 1,000 mcg by mouth Daily ActiveVitamin B12 1000 MCG (18 sources)Start: 18-99-0249glbd 1 tablet by mouth once dailyVitamin B12 1000 MCG 1 tablet Orally qd x6 days a week Aug, ActiveStart: 83-66-9437mscy 1 tablet by mouth once dailyVitamin B12 1000 MCG 1 tablet Orally Once a day Aug, Active Completed/Discontinued Medications MedicationDrug Class(es)DatesSig (Normalized)Sig (Original)bisacodyl 5 mg delayed release oral tablet (20 sources)Stimulant LaxativeStart: 09-26-2023 End: 82-01-8887zafj 2 tablets by mouth once dailyBisacodyl (Dulcolax (Bisacodyl)) 5 mg tablet,delayed release (DR/EC) Discontinued 0 PO Daily September 9:55am October 14, 2023 8:17am take 2 (5 MG) tablets orally dailyStart: 08-21-2021 End: 02-20-9985hayl 1 tablet by mouth once daily at bedtimeBisacodyl (Dulcolax (Bisacodyl)) 5 mg Tablet,Delayed Release (Dr/Ec) Discontinued 5 MG PO Daily at b edtime August 21, 2021 12:00am September 26, 2023 9:57amStart: 91-26-7910rluo 2 tablets by mouth once daily as neededDulcolax 5 MG 2 tab Orally Once a day prn July, Activeclotrimazole 10 mg oral lozenge (8 sources)Azole AntifungalStart: 34-72-4677Filgjpodrxoh 10 MG dissolve 1 osvaldo Mouth/Throat five times a day for 7 days Apr, Not-Taking/PRNdoxycycline hyclate 100 mg oral capsule (20 sources)Tetracycline-class DrugStart: 04-26-2024 End: 90-49-3872aacv 1 capsule by mouth twice dailyDoxycycline Hyclate 100 mg capsule Discontinued 100 MG PO Twice daily 20 June 30, 2024 1:56pm October 05, 2024 10:33amStart: 44-34-7078pccu 1 capsule by mouth every twelve hours Doxycycline Hyclate 100 MG 1 capsule Orally Twice a day for 10 day(s) Mar, QqpberYrfujkfxlzk-Ujnugmurs-Qvcolija (7 sources)Anticholinergic, Corticosteroid, beta2-Adrenergic AgonistStart: 04-14-2024 End: 23-28-4038Wuajgpgenou-Umeclidin-Vilanter (Trelegy Ellipta) 100-62.5-25 mcg blister with device Discontinued INHALATION April 14, 2024 1:00am October 13, 2024 11:23amStart: 05-40-7681Txzgxhrwblb-Umeclidin-Vilanter (Trelegy Ellipta) 100-62.5-25 mcg blister with device Active INHALATION April 14, 2024 1:00am Complies with drug therapyStart: 69-84-8280Nztns: 04-14-2024 Ttkrwfxyfrw-Xzjpcyszp-Mldeldcp (Trelegy Ellipta) 100-62.5-25 mcg blister with device Active INHALATION April 14, 2024 1:00amStart: 04-14-2024 Yeddvvrggwm-Oihzturqt-Vposavuo (Trelegy Ellipta) 100-62.5-25 mcg blister with device Active INHALATION April 14, 2024 12:00amlubiprostone 0.024 mg oral capsule (5 sources)Chloride Channel ActivatorStart: 31-65-3027pgjq 1 capsule by mouth twice dailyAmitiza 24 mcg Cap 24 microgram = 1 cap(s), Oral, BID, # 60 cap(s), Refills(s) 0, Pharmacy: [facility]/pharmacy #[id number] Start Date: 03/30/19 Status: Ordered pantoprazole 40 mg delayed release oral tablet (20 sources)Proton Pump InhibitorStart: 08-02-2021 End: 12-36-0115mlxi 1 tablet by mouth once dailyPantoprazole 40 mg tablet,delayed release (DR/EC) Discontinued 40 MG PO Daily August 21, 2021 12:00am October 14, 2023 8:18ampredniSONE 20 mg oral tablet (5 sources)Start: 06-30-2024 End: 52-42-8544blxo 3 tablets by mouth once daily at [...] mg/actuat inhalation spray (20 sources)AnticholinergicStart: 09-26-2023 End: 80-69-3775vbic 1 puff(s) by inhalation once dailyTiotropium Quinault (Spiriva Respimat) 2.5 mcg/actuation mist Discontinued 2 PUFF INHALATION Daily September 26, 2023 12:00am December 17, 2023 2:22pmStart: 88-04-0948gipk 2 puff(s) by inhalation once dailySpiriva Respimat [...] pain; Translations: [Unspecified abdominal pain]Onset: 03-13-2021 Resolved: 03-86-4871KdobpfkdBdpxjrl disorders (20 sources)Mixed anxiety and depressive disorder; Translations: [Anxiety disorder, unspecified]Onset: 03-13-2021 Resolved: 02-15-1359MypkvbvWknardwm of urinary tract (5 sources)History of calculus of kidney; Translations: [Personal history of urinary calculi]Onset: 81-71-2989FgyakhynUxxnghmz (1 source)Bilateral 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 cataract eyes; Translations: [Cortical age-related cataract, bilateral]50-36-2665XdjycegRwfsvxe obstructive pulmonary disease and bronchiectasis (20 sources)Chronic obstructive lung disease; Translations: [Chronic obstructive pulmonary disease, unspecified]Onset: 03-13-2021 Resolved: 10-45-7403GuybfshFwrbkdgdod associated with dizziness or vertigo (20 sources)Vertigo; Translations: [Dizziness and giddiness]Onset: 05-28-2024 79-50-0827CpjnjixyVwmtqvcfyo and other anemia (11 sources)Anemia, unspecified; Translations: [Anemia, unspecified]Onset: 03-13-2021 Resolved: 96-11-7693ZcmkakxpHzwcfzdqpk and other anemia (10 sources)Anemia; Translations: [Anemia, unspecified]08-07-0244Cuwsqdlo Delirium, dementia, and amnestic and other cognitive disorders (7 sources)Dementia; Translations: [Unspecified dementia without behavioral disturbance]Onset: 390875-63-3873ZtkumlqQmxiqzyj mellitus without complication (20 sources)Hyperglycemia, unspecified; Translations: [Hyperglycemia]Onset: 03-13-2021 Resolved: 23-75-6731RubnzeoxKzpdgezq of mouth; excluding dental (1 source)Other forms of stomatitisEpisodicDisorders of lipid metabolism (20 sources)Hyperlipidemia; Translations: [Hyperlipidemia, unspecified]Onset: 03-13-2021 Resolved: 57-06-8883GpttlznAlvyodabtgpnwf and diverticulitis (5 sources)Aseyeznnirckvc19-44-9827RvjhtegCqpincixur disorders (20 sources)Acid reflux; Translations: [Gastro-esophageal reflux disease without esophagitis]Onset: 09-13-2021 Resolved: 92-06-6030KvxixelJdknqyarcyxtpnhk hemorrhage (20 sources)Melena; Translations: [Melena]EpisodicGenitourinary symptoms and ill-defined conditions (10 sources)Blood in urine; Translations: [Gross hematuria]Onset: 01-27-2023 11-70-6217VdgddkfqIsdtoltxyje of prostate (20 sources)Benign prostatic hyperplasia; Translations: [Benign prostatic hyperplasia without lower urinary tract symptoms]Onset: 03-13-2021 Resolved: 65-92-1277ArwfediBquhcfgxvyat; infection of eye (except that caused by tuberculosis or sexually transmitteddisease) (1 source)Blepharitis of bilateral upper eyelids; Translations: [Unspecified blepharitis right upper eyelid]54-04-9682ByajuvxfGidbhcwumv infection (5 sources)Bacterial overgrowth xqgsajkb03-58-0612WsaegmfhCdqsksx (2 sources)Candidal stomatitisEpisodicNausea and vomiting (12 sources)Nausea; Translations: [Nausea and vomiting]Onset: 05-09-2021 Resolved: 49-94-3467OictacoiQzbqdxdmqnc chest pain (13 sources)Chest pain, unspecified; Translations: [Chest pain]EpisodicOther aftercare (7 sources)Other senior care (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 therapy; Translations: [[employer]LOOR WORK[employer] WELL SERVICE CURRENT DRUG THERAPY]Onset: 03-13-2021 Resolved: 62-95-3722ZfrxhlzpZarit and unspecified benign neoplasm (8 sources)Neoplasm and/or hamartoma; Translations: [Melanocytic nevi, unspecified]37-70-2369KcyrkcggGshsknx on above:left earOther and unspecified benign neoplasm (2 sources)Melanocytic nevi, unspecified; Translations: [Neoplasm of uncertain behavior of skin]08-70-7467AaxdosyeTegmf diseases of kidney and ureters (1 source)Urinary tract obstruction; Translations: [Other obstructive and reflux uropathy]Onset: 85-49-3677HafmfymcAowsp gastrointestinal disorders (20 sources)Irritable bowel syndrome; Translations: [Irritable bowel syndrome without diarrhea]81-05-8895NcwedkuGvaoc gastrointestinal disorders (14 sources)Irritable bowel syndrome characterized by constipation; Translations: [Irritable bowel syndrome with constipation]ChronicOther gastrointestinal disorders (5 sources)Chronic idiopathic prmmxuozqeci35-75-4282WmpwykpGdkou gastrointestinal disorders (20 sources)Constipation; Translations: [Constipation, unspecified]08-22-2021 EpisodicOther gastrointestinal disorders (8 sources)Constipation, unspecified; Translations: [Constipation, unspecified] Onset: 03-13-2021 Resolved: 52-53-4792FugifgitEwnmu gastrointestinal disorders (5 sources)Kwhbtndxg04-10-3260RpjdzuemHkdmz hereditary and degenerative nervous system conditions (10 sources)Impaired cognition; Translations: [Mild cognitive impairment, so stated]89-62-1872LeytollAmlpc hereditary and degenerative nervous system conditions (2 sources)Mild cognitive disorder ; Translations: [Mild cognitive impairment, so stated]69-97-1361JkrnqrcPljjn lower respiratory disease (2 sources)Shortness of breathEpisodicOther nervous system disorders (14 sources)Cervical myelopathy; Translations: [Disease of spinal cord, unspecified]73-01-2526GqcsqopBtfla nervous system disorders (10 sources)Impaired cognition; Translations: [Other symptoms and signs involving cognitive functions and awareness]30-55-8129YlqdnfqqSzsev nervous system disorders (4 sources)Word finding difficulty ; Translations: [Other speech disturbances] 92-08-6499DxmusyloFusue nutritional; endocrine; and metabolic disorders (3 sources)Abnormal weight gainOnset: 03-13-2021 Resolved: 22-29-7027LiauudvsVcogy nutritional; endocrine; and metabolic disorders (3 sources)Abnormal weight loss; Translations: [Loss of weight]EpisodicOther nutritional; endocrine; and metabolic disorders (4 sources)Weight loss; Translations: [Abnormal weight loss]10-62-0665Bhddgkbp Other nutritional; endocrine; and metabolic disorders (17 sources)Weight decreased; Translations: [Abnormal weight loss]10-14-2023 EpisodicOther nutritional; endocrine; and metabolic disorders (10 sources)Loss of appetite; Translations: [Anorexia]27-96-4858LqfontvuUnfxq screening for suspected conditions (not mental disorders or infectious disease) (20 sources)Abnormal results of thyroid function studies; Translations: [Abnormal blood-gas level]Onset: 03-13-2021 Resolved: 00-84-7392CaolwnchGxahdfzf codes; unclassified (6 sources)Other amnesia; Translations: [Memory loss]Onset: 03-13-2021 Resolved: 99-43-8424IipklxpeWvwclorg codes; unclassified (10 sources)Insomnia; Translations: [Insomnia, unspecified]47-50-7218Eipobxkh Residual codes; unclassified (10 sources)Memory impairment; Translations: [Other amnesia]10-95-8963Njdaarek Residual codes; unclassified (2 sources)Amnesia; Translations: [Other amnesia]52-26-4184XshpqgjqOwlvpyvq codes; unclassified (2 sources)Family history of dementia; Translations: [Family history of other mental and behavioral disorders]84-07-1971SpbbipouGbmqaolw codes; unclassified (11 sources)Early satiety; Translations: [Early satiety]80-95-2290Ynllwmot Screening and history of mental health and substance abuse codes (5 sources)Jy-dcjrya93-73lvhwxt12-35-0350UpkijqhmMang and subcutaneous tissue infections (12 sources)Abscess; Translations: [Cutaneous abscess, unspecified]10-14-2023 EpisodicSpondylosis; intervertebral disc disorders; other back problems (20 sources)Degeneration of lumbar intervertebral disc; Translations: [Other intervertebral disc degeneration, lumbar region]ChronicUnclassified (5 sources)Patient encounter bnuerl58-49-2526Vywdk infection (14 sources)Herpesviral vesicular dermatitis; 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] Onset: 09-13-2021 Resolved: 63-10-4184Vnkbnyqo Past or Other Problems Problem ClassificationProblemDateDocumented DateEpisodic/ChronicImmunizations and screening for infectious disease (1 source)Contact with and (suspected) exposure to other viral communicable diseasesOnset: 03-27-2021 Resolved: 72-86-5259TmllnqkiZolnnvc and fatigue (1 source)Other fatigueOnset: 03-27-2021 Resolved: 79-94-3861FphpgcxgOzyey upper respiratory infections (1 source)Acute sinusitis, unspecifiedOnset: 04-04-2021 Resolved: 67-60-9337XahyjywoTvtie infection (1 source)COVID-19Onset: 04-04-2021 Resolved: 04-04-2021 Results Test NameValueInterpretationReference RangeFacilityLon 10-26-2024 Specimen: [id number] Received: 10/26/24 Status: LYNETTE Gonzalez Num: [id number] Spec Type: Surgical Subm Dr: Andrez Toledo MD Tissues: A Small Intestine - Biopsy/Polyp (SMALL BOWEL BX) B Gastric Biopsy (GASTRIC BX) Procedures: HE/4, Gross/Micro L4/2 Age/ Patient Sex Location Account Attending Physician Jb V[place] /[facility] [id number] Andrez Toledo MD SPEC NUM: [id number] RECD: 10/26/24 STATUS: LYNETTE GONZALEZ NUM: [id number] VIET: 10/26/[address] [facility] [address]: Andrez Toledo MD ENTERED: 10/26/[address] [facility] [address]: SPEC TYPE: Surgical DEPT: S ENTERED BY: [id number] RECV BY: [id number] ORDERED: HE/4, Gross/Micro L4/2 ORDERED: HE/4, Gross/Micro [...] submitted in a single cassette. (1, ns, [id number] A) Part B is received in formalin labeled with the patients name, date of , and gastric BX is a hammonds-evans, focally erythematous, friable, 0.4 cm in greatest dimension tissue bit. The specimen is entirely submitted in a single cassette. (1, ns, [id number] B) Specimen: [id number] Received: 10/26/24 Status: LYNETTE Gonzalez Num: [id number] Spec Type: Surgical Subm Dr: Andrez Toledo MD Tissues: A Small Intestine - Biopsy/Polyp (SMALL BOWEL BX) B Gastric Biopsy (GASTRIC BX) Procedures: HE/4, Gross/Micro L4/2 Patient: Jb Vail [id number] ([facility]) Specimen: [id number] Received: 10/26/24 (Continued) Signed (signature on file) Rl Martin Jr., MD 10/27/2419 Specimen: [id number] Received: 10/26/24 Status: LYNETTE Laashish Num: [id number] Spec Type: Surgical Subm Dr: Andrez Toledo MD Tissues: A Small Intestine - Biopsy/Polyp (SMALL BOWEL BX) B Gastric Biopsy (GASTRIC BX) Procedures: Satya AWAN/Renée L4/2 Patient: Jb Vail [id number] (Continued) Specimen: [id number] Received: 10/26/24 (Continued) CPT Codes 03001 x 2 Specimen: [id number] Received: 10/26/24 Status: LYNETTE Ino Num: [id number] Spec Type: Surgical Subm Dr: Andrez Toledo MD Tissues: A Small Intestine - Biopsy/Polyp (SMALL BOWEL BX) B Gastric Biopsy (GASTRIC BX) Procedures: NANETTE/Marisa, Gross/Micro L4/2 Patient: Jb Vail [id number] (Continued) Signed (signature on file) Rl Martin Jr., MD 10/27/24 0919NoCarolinas [facility] PepjhN9Y with Estimated Average Gluon 16-45-2574Dsjyfhl [Mass/Vol]105 mg/dLTGH Spring Hill Physician GroupComment on above:Result Comment: PERFORMED BY: [place] [address] PATHOLOGIST LITHOGRAPHIC PLATE MAKER APPRENTICE ROSETTA SNEED M.D.Performed By: #### A1C WTH eA, LIPID, [id number], CMP #### [place] [address] USAAlanine aminotransferase [Enzymatic activity/volume] in Serum or PlasmaOrdered By: Keith Atkinson on 77-13-1228LIM [Catalytic activity/Vol]13 U/L7-52Henry County HospitalComment on above: Performed By: #### A1C WTH eA, LIPID, [id number], CMP #### [place] [address] USAAlbumin [Mass/volume] in Serum or Plasma by Bromocresol green (BCG) dye binding methoOrdered By: Keith Atkinson on 01-52-6844Ulyatzr BCG dye [Mass/Vol]4.2 g/dL3.5-5.7FRegional Medical CenterAlkaline phosphatase [Enzymatic activity/volume] in Serum or PlasmaOrdered By: Keith Atkinson on 75-12-0732UXY [Catalytic activity/Vol]64 U/V64-631XalufvnszHenry County HospitalComment on above:Performed By: #### A1C WTH eA, LIPID, [id number], CMP #### [facility] [address] [place], [place] [id number] USAAspartate aminotransferase [Enzymatic activity/volume] in Serum or PlasmaOrdered By: Keith Atkinson on 69-65-3061VFD [Catalytic activity/Vol]17 U/Z89-28KxfgnkjmkHenry County HospitalComment on above: Performed By: #### A1C WTH eA, LIPID, [id number], CMP #### [place] [id number] USABilirubin.total [Mass/volume] in Serum or PlasmaOrdered By: Keith Atkinson on 00-56-1738Qfsvpdhcu [Mass/Vol]0.7 mg/dL0.3-1.0Henry County HospitalComment on above:Performed By: #### A1C WTH eA, LIPID, [id number], CMP #### [facility] [address] [place] [id number] USABlood estimated average glucose determination by estimation from glycated hemoglobinOrdered By: Keith Atkinson on 45-70-3567Xbmtqwz glucose Estimated from glycated hemoglobin (Bld) [Mass/Vol]105 mg/dLHenry County HospitalCalcium [Mass/volume] in Serum or PlasmaOrdered By: Keith Atkinson on 68-60-0430Amgjywc [Mass/Vol]9.5 mg/dL8.6-10.3FRegional Medical CenterComment on above:Performed By: #### A1C WTH eA, LIPID, [id number], CMP #### [facility] [address] [place] [id number] USACarbon dioxide, total [Moles/volume] in Serum or Plasma Ordered By: Keith Atkinson on 45-39-5506MF7 [Moles/Vol]31.7 mmol/LHigh21.0-31.0 Henry County HospitalComment on above:Performed By: #### A1C WTH eA, LIPID, [id number], CMP #### [facility] [address] [place] [phone] USAChloride [Moles/volume] in Serum or PlasmaOrdered By: Keith Atkinson on 71-91-6857Wuwapdid [Moles/Vol]103 mmol/F89-248ElxscitnzHenry County HospitalComment on above:Performed By: #### A1C WTH eA, LIPID, [id number], CMP #### [facility] [address] [place] [phone] USACholesterol [Mass/volume] in Serum or PlasmaOrdered By: Keith Atkinson on 99-09-9256Uopbxmvkcbi [Mass/Vol]172 mg/yX164-784XvaiefvwgHenry County HospitalComment on above:Chol less than 200 mg/dl low riskChol 201-239 mg/dl borderline riskChol 240 mg/dl and greater high riskResult Comment: Chol less than 200 mg/dl low risk Chol 201-239 mg/dl borderline risk Chol 240 mg/dl and greater high riskPerformed By: #### A1C WT eA, LIPID, [id number], CMP #### [facility] [address] [place] [address] USACholesterol in HDL [Mass/volume] in Serum or PlasmaOrdered By: Keith Atkinson on 52-30-3127Bogtiydnefc in HDL [Mass/Vol]63 mg/dL- Henry County HospitalComment on above:HDL CHOL ATP-III CLASSIFICATION Cardiovascular RiskHDL > or equal to 60 mg/dL LOWHDL < 40 mg/dL HIGHResult Comment: HDL CHOL ATP-III CLASSIFICATION Cardiovascular Risk HDL > or equal to 60 mg/dL LOW HDL < 40 mg/dL HIGHPerformed By: #### A1C WT eA, LIPID, [id number], CMP #### [facility] [address] [place] [address] USACholesterol in LDL Calc [Mass/Vol]Ordered By: Keith Atkinson on 87-03-5236Ysimcnahcrk in LDL [Mass/Vol]94 mg/dL0-100Henry County HospitalComment on above:LDL ATP III CLASSIFICATIONLDL less than 100 mg/dL OptimalLDL 100-129 mg/dL Near or above eeezzqgQWM364-926 mg/dL Borderline highLDL 160-189 mg/dL HighLDL greater than 189 mg/dL Very highCholesterol in VLDL Calc [Mass/Vol]Ordered By: Keith Atkinson on 89-97-6590Ypjgizyeeld in VLDL [Mass/Vol]14 mg/dLHenry County HospitalComprehensive Metabolic Panel on 31-55-4783Mjaxdho [Mass/Vol]4.2 g/dLNormal3.5-5.7The [facility] Physician GroupComment on above:Performed By: #### A1C WT eA, LIPID, [id number], CMP #### [facility] [address] [place] [address] USAGFR/1.73 sq M.predicted MDRD (S/P/Bld) [Vol rate/Area] mL/min/{1.73_m2}NormalThe [facility] Physician GroupComment on above:Performed By: #### A1C WTH eA, LIPID, [id number], CMP #### [facility] [address] [place] [address] USACreatinine [Mass/volume] in Serum or PlasmaOrdered By: Keith Atkinson on 90-64-7322Gyhhbytsdf [Mass/Vol]0.79 mg/dL0.70-1.30Henry County HospitalComment on above:Performed By: #### A1C WTH eA, LIPID, [id number], CMP #### [facility] [address] [place] [address] USAFolate [Mass/volume] in Serum or PlasmaOrdered By: Keith Atkinson on 27-00-6155Dmizaf [Mass/Vol]7.7 ng/mL>5.9Henry County HospitalComment on above:Folate reference range: >5.9 ng/mlThe WHO technical consultation on folate and vitamin p80xtlzxhlagtbp has determined that folate concentrations lessthan 4 ng/ml are considered deficient.Glucose [Mass/volume] in Serum or PlasmaOrdered By: Keith Atkinson on 00-84-9350Daymjwd [Mass/Vol]91 mg/yF17-195VkkyhgwmuHenry County HospitalComment on above:ADA recommended reference rangeRandom Glucose Reference [...] rangePerformed By: #### A1C WTH eA, LIPID, [id number], CMP #### [facility] [address] [place] [address] USAHemoglobin A1c/Hemoglobin.total in BloodOrdered By: Keith Atkinson on 27-32-4493SgA5f (Bld) [Mass fraction]5.3 %4.3-5.6FRegional Medical CenterComment on above:Increased risk for diabetes: 5.7 - 6.4diabetes: >6.4glycemic control for adults with diabetes: <7.0Result Comment: Increased risk for diabetes: 5.7 - 6.4 diabetes: >6.4 glycemic control for adults with diabetes: <7.0Performed By: #### A1C WTH eA, LIPID, [id number], CMP #### [facility] [address] [place] [address] USALipid Panelon 80-99-8022RFZ Cholesterol,Cbxoisqcdq01 mg/dL Normal0-100The [facility] Hospital Physician GroupComment on above:Result Comment: LDL ATP III CLASSIFICATION LDL less than 100 mg/dL Optimal LDL 100-129 mg/dL Near or above optimal LDL 130-159 mg/dL Borderline high LDL 160-189 mg/dL High LDL greater than 189 mg/dL Very highPerformed By: #### A1C WTH eA, LIPID, [id number], CMP #### [facility] [address] [place] [address] USATriglyceride w/Kxgyzh36 mg/dLNormal0-149The [facility] Physician GroupComment on above:Result Comment: TRIG ATP III CLASSIFICATION TRIG less than 150 mg/dL Normal TRIG 150-199 mg/dL Borderline high TRIG 200-500 mg/dL High TRIG greater than 500 mg/dL Very high Standard traceable to the Center for Disease Conrtrol and Prevention (CDC) test method.Performed By: #### A1C WTH eA, LIPID, [id number], CMP #### [facility] [address] [place] [address] USAVLDL ZXIBAAOXVFR72 mg/dLNormalThe [facility] Physician GroupComment on above:Performed By: #### A1C WTH eA, LIPID, [id number], CMP #### [facility] [address] [place] [address] USANo Panel InformationOrdered By: Keith Atkinson on 10-12-2024 Estimated GFR (CKD-EPI)> 60.0 mL/MinHenry County HospitalPharmacy Creatinine Clearance (ChemN/[facility] HospitalPotassium [Moles/volume] in Serum or PlasmaOrdered By: Keith Atkinson on 92-04-0467Vnhqgccbl [Moles/Vol]4.5 mmol/L3.5-5.1FRegional Medical CenterComment on above: Performed By: #### A1C WTH eA, LIPID, [id number], CMP #### [facility] [address] [place] [address] USAProtein [Mass/volume] in Serum or PlasmaOrdered By: Keith Atkinson on 84-32-3864Ixtjvol [Mass/Vol]6.6 g/dL6.4-8.9Henry County HospitalComment on above:Performed By: #### A1C WTH eA, LIPID, [id number], CMP #### [place] [address] USASerum globulin measurement by calculation (mass/volume) Ordered By: Keith Atkinson on 77-34-5889Effrexzr (S) [Mass/Vol]2.4 g/dLHenry County HospitalComment on above:Performed By: #### A1C WTH eA, LIPID, [id number], CMP #### [facility] [address] [place] [address] USASerum or plasma albumin/globulin mass ratioOrdered By: Keith Atkinson on 96-27-3245Tjxktls/Globulin [Mass ratio]1.8 {ratio}Henry County HospitalComment on above:Performed By: #### A1C WTH eA, LIPID, [id number], CMP #### [facility] [address] [place] [address] USASerum or plasma anion gap determinationOrdered By: Keith Atkinson on 80-68-8414Peurn gap [Moles/Vol]8.8 mmol/L6.0-15.0Henry County HospitalComment on above:Performed By: #### A1C WTH eA, LIPID, [id number], CMP #### [facility] [address] [place] [address] USASerum or plasma total cholesterol/high density lipoprotein (HDL) cholesterol mass ratOrdered By: Keith Atkinson on 10-12-2024 Cholesterol.total/Cholesterol in HDL [Mass ratio]2.7 {ratio}<5.0Henry County HospitalComment on above:Performed By: #### A1C WTH eA, LIPID, [id number], CMP #### [facility] [address] [place] [address] USASodium [Moles/volume] in Serum or PlasmaOrdered By: Keith Atkinson on 89-24-9608Rvetqv [Moles/Vol]139 mmol/R785-871OmuixgedpHenry County HospitalComment on above:Performed By: #### A1C WTH eA, LIPID, [id number], CMP #### [facility] [address] [place] [address] USATriglyceride [Mass/volume] in Serum or PlasmaOrdered By: Keith Atkinson on 89-83-1640Alpsuhehwuwo [Mass/Vol]73 mg/dL0-149Henry County HospitalComment on above:TRIG ATP III CLASSIFICATIONTRIG less than 150 mg/dL NormalTRIG 150-199 mg/dL Borderline highTRIG 200-500 mg/dL High TRIG greater than 500 mg/dL Very highStandard traceable to the Center for Disease Co nrtrol and Prevention (CDC) test method.Urea nitrogen [Mass/volume] in Serum or PlasmaOrdered By: Keith Atkinson on 31-32-7288Eogs nitrogen [Mass/Vol]16 mg/dL7-25 Henry County HospitalComment on above:Performed By: #### A1C WTH eA, LIPID, [id number], CMP #### [facility] [address] [place] [address] USAVit. B12/Folate Profileon 42-60-2335Hvhslp4.7 ng/mLNormal >5.9The [facility] Physician GroupComment on above:Result Comment: Folate reference range: >5.9 ng/ml The WHO technical consultation on folate and vitamin b12 deficiencies has determined that folate concentrations less than 4 ng/ml are considered deficient. PERFORMED BY: [address] [address] PATHOLOGIST LITHOGRAPHIC PLATE MAKER APPRENTICE ROSETTA SNEED M.D.Performed By: #### A1C WTH eA, LIPID, [id number], CMP #### [facility] [address] [place] [address] USAVitamin B12 ser/plasOrdered By: Keith Atkinson on 10-12-2024 Cobalamin (Vitamin B12) [Mass/Vol]575 pg/oK003-913EvzflcxdyHenry County HospitalComment on above:Performed By: #### A1C WTH eA, LIPID, [id number], CMP #### [facility] [address] [place] [address] USABasic Metabolic Panelon 08-25-2674Mhtzu gap [Moles/Vol]7.8 mmol/LNormal6.0-15.0The [facility] Physician GroupComment on above:Performed By: #### BMP #### [place] [address] USACalcium [Mass/Vol]9.3 mg/dLNormal8.6-10.3The [facility] Physician GroupComment on above:Performed By: #### BMP #### [place] [address] USAChloride [Moles/Vol]105 mmol/VSatqzr71-203Gjy [facility] Physician GroupComment on above:Performed By: #### BMP #### [facility] [address] [place] [address] USACO2 [Moles/Vol]28.0 mmol/RWyghez00.0-31.0The [facility] Physician GroupComment on above:Performed By: #### BMP #### [facility] [address] [place] [address] USACreatinine [Mass/Vol]0.68 mg/dLLow0.70-1.30The [facility] Physician GroupComment on above:Performed By: #### BMP #### [facility] [address] [place] [address] USACreatinine Clr Calc Zyusqopb54.22NormalThe [facility] Physician GroupComment on above:Result Comment: PERFORMED BY: [place] [address] PATHOLOGIST LITHOGRAPHIC PLATE MAKER APPRENTICE TAM BINGHAM M.D.Performed By: #### BMP #### [facility] [address] [place] [address] USAGFR/1.73 sq M.predicted MDRD (S/P/Bld) [Vol rate/Area] mL/min/{1.73_m2}NormalThe [facility] Physician GroupComment on above:Performed By: #### BMP #### [place] [address] USAGlucose [Mass/Vol]143 mg/mHEvix26-131Nso [facility] Physician GroupComment on above:Result Comment: Random Glucose Reference Range is dependent on time and content of last meal. Glucose of more than 200 mg/dL in a nonstressed, ambulatory subject supports the diagnosis of Diabetes Mellitus. ADA recommended reference rangePerformed By: #### BMP #### [place] [address] USAPotassium [Moles/Vol]4.8 mmol/LNormal3.5-5.1The [facility] Physician GroupComment on above:Performed By: #### BMP #### [place] [address] USASodium [Moles/Vol]136 mmol/MQkimyi258-907Zzw [facility] Physician GroupComment on above:Performed By: #### BMP #### [place] [address] USAUrea nitrogen [Mass/Vol]16 mg/dLNormal7-25The [facility] Physician GroupComment on above:Performed By: #### BMP #### [place] [address] USACalcium [Mass/volume] in Serum or PlasmaOrdered By: Marcela Keller on 62-36-8290Adajtoz [Mass/Vol]Calcium [Mass/volume] in Serum or Plasma8.6-10.3FRegional Medical CenterCarbon dioxide, total [Moles/volume] in Serum or PlasmaOrdered By: Marcela Keller on 42-03-0855VW0 [Moles/Vol]Carbon dioxide, total [Moles/volume] in Serum or Aqzhrx80.0-31.0 [facility] HospitalChloride [Moles/volume] in Serum or Plasma Ordered By: Marcela Keller on 27-60-8883Salgyzav [Moles/Vol]Chloride [Moles/volume] in Serum or Jeoobd01-516ZudleswkgHenry County Hospital Creatinine [Mass/volume] in Serum or PlasmaOrdered By: Marcela Keller on 91-38-8612Temqnirxmo [Mass/Vol]Creatinine [Mass/volume] in Serum or PlasmaLow 0.70-1.30Henry [facility] HospitalGlucose [Mass/volume] in Serum or PlasmaOrdered By: Marcela Keller on 07-68-0931Zurkbaq [Mass/Vol]Glucose [Mass/volume] in Serum or XeqrinZazz61-715ExptbtvfqHenry County Hospital Comment on above:ADA recommended reference rangeRandom Glucose Reference Range is dependent on time and content of last meal. Glucose of more than 200 mg/dL in a nonstressed, ambulatory subject supports the diagnosisof Diabetes Mellitus.MR head/brain wo conon 44-04-6469JC head/brain wo [facility] [place] [address] MRI Report Signed Patient: Jb Vail MR#: [id number] : 1945 Acct:[id number] Age/Sex: 78 / M ADM Date: 05/28/24 Loc: Room: [address] [place] [address] Type: ADM INOo Attending Dr: Se Starkey [...] Nick Kurtz M.D.05/29/2024 1:29 PM Dictation Location: [place] [address] Transcribed By: JOHANA 05/29/24 1329 Dictated By: Nick Kurtz DO 05/29/24 1316 Signed By: 05/29/24 1329[facility] Phys[facility] GroupBanner Boswell Medical Centeretic resonance imaging reportOrdered By: Nick Kurtz on 24-25-7946Flbqb reportWAYNE HE[facility] Main [place] [address] [place] [address] MRI Report Signed Patient: Jb Vail MR#: [id number] : 1945 Acct:[id number] Age/Sex: 78 / M ADM Date: 5 Loc: 3T Room: [address] [place] [address] Type: ADM INOo Attending Dr: Se Starkey [...] Nick Kurtz M.D.05/29/2024 1:29 PM Dictation Location: [place] [address] Transcribed By: [facility] 05/29/24 1329 Dictated By: Nick Kurtz DO 05/29/24 1316 Signed By: 05/29/24 1329 [facility] HospitalNo Panel InformationOrdered By: Marcela Keller on 35-86-9158Aakwclhjs GFR (CKD-EPI)> 60.0 mL/MinHenry County HospitalPharmacy Creatinine Clearance (Chem80.22[facility] Potassium [Moles/volume] in Serum or PlasmaOrdered By: Marcela Keller on 46-52-5628Ypxovdpzp [Moles/Vol]Potassium [Moles/volume] in Serum or Plasma 3.5-5.1FBarnesville Hospitalerum or plasma anion gap determination Ordered By: Marcela Keller on 19-14-8772Tovdg gap [Moles/Vol]Serum or plasma anion gap determination6.0-15.0[facility] Hospitalodium [Moles/volume] in Serum or PlasmaOrdered By: Marcela Keller on 25-85-9356Uahorj [Moles/Vol]Sodium [Moles/volume] in Serum or Vyqpnm189-711HaauaqtyvHenry County HospitalUrea nitrogen [Mass/volume] in Serum or PlasmaOrdered By: Marcela Keller on 56-51-9858Unwk nitrogen [Mass/Vol]Urea nitrogen [Mass/volume] in Serum or Plasma7-25[facility] HospitalBasophils Auto (Bld) [#/Vol] on 43-32-8345Xhrjcdaxt (Bld) [#/Vol]Automated basophil count0.0-0.1FRegional Medical CenterBasophils/100 WBC Auto (Bld)on 79-90-8643Ucfuyctwp/100 WBC (Bld)Automated basophil %0.2-2.0[facility] Eosinophils/100 WBC Auto (Bld)on 19-69-8104Ylursqikvxg/100 WBC (Bld)Automated eosinophil %0.9-7.0[facility] County HospitalErythrocyte distribution width Auto (RBC) [Ratio]on 23-21-2749Eznoqpqikdb distribution width (RBC) [Ratio]Erythrocyte distribution width [Ratio] by Automated count11.0-15.0 [facility] HospitalEstimated glomerular filtration rate (GFR) non- Americanon 92-20-6325TNG/1.73 sq M.predicted among non-blacks MDRD (S/P/Bld) [Vol rate/Area]Estimated glomerular filtration rate (GFR) non->=60 mL/min/1.73m 2FRegional Medical CenterGlobulin Calc (S) [Mass/Vol]on 98-05-4259Fwnpurcr (S) [Mass/Vol]Serum globulin measurement by calculation (mass/volume)[facility] County HospitalHematocrit Auto (Bld) [Volume fraction]on 14-21-6502Mgnfnazkza (Bld) [Volume fraction]Hematocrit [Volume Fraction] of Blood by Automated wkdppAem26.0-54.0[facility] HospitalHemoglobin [Mass/volume] in Bloodon 52-30-4708Kzwagusumx (Bld) [Mass/Vol]Hemoglobin [Mass/volume] in UrjdjRug75.0-18.0[facility] HospitalINR in Platelet poor plasma by Coagulation assayon 74-28-6892ACF Coag (PPP) [Relative time]INR in Platelet poor plasma by Coagulation assay [facility] HospitalComment on above:DESIRED INR:2.0-3.0 CONDITIONS NOT LISTED BELOW2.5-3.5 FOR PROSTHETIC HEART VALVE REPLACEMENT2.5-3.5 RECURRENT THROMBOSISLaboratory - Chemistry and Chemistry - challengeon 90-35-6506Zvwupyp [Mass/Vol]3.6 g/dL3.4-5.0[facility] HospitalALP [Catalytic activity/Vol]73 U/U49-637UwypthjnlHenry County HospitalALT [Catalytic activity/Vol]19 U/W92-41IhbyezxwwHenry County HospitalAST [Catalytic activity/Vol]23 U/A48-73IfjfokhqpHenry County HospitalBilirubin [Mass/Vol]0.6 mg/dL0.2-1.0[facility] HospitalCalcium [Mass/Vol]9.1 mg/dL 8.5-10.1FRegional Medical CenterChloride [Moles/Vol]103 mmol/L98-107 [facility] HospitalCO2 [Moles/Vol]29.4 mmol/L21.0-32.0[facility] HospitalCreatinine [Mass/Vol]1.03 mg/dL0.70-1.30[facility] HospitalGFR/1.73 sq M.predicted MDRD (S/P/Bld) [Vol rate/Area] mL/min/{1.73_m2}>=60 mL/min/1.73m 2FRegional Medical CenterGlucose [Mass/Vol]130 mg/cGQmoc75-760UjhgkteonHenry County HospitalLactate [Moles/Vol]2.0 mmol/L0.4-2.0[facility] HospitalMagnesium [Mass/Vol]1.7 mg/dLLow1.8-2.4FRegional Medical CenterPotassium [Moles/Vol]4.2 mmol/L3.5-5.1FRegional Medical CenterProtein [Mass/Vol] 7.3 g/dL6.4-8.2FBarnesville Hospitalodium [Moles/Vol]138 mmol/L 136-145Henry County HospitalTSH Qn1.105 m[IU]/L0.358-3.740Henry [facility] HospitalUrea nitrogen [Mass/Vol]16.0 mg/dL7.0-18.0[facility] HospitalUrea nitrogen/Creatinine [Mass ratio]15.5 mg/mgHenry County HospitalLaboratory - Hematology and Cell countson 05-28-2024 Immature granulocytes/100 WBC (Bld)0.4 %0.0-0.5FRegional Medical Center Leukocytes [#/volume] corrected for nucleated erythrocytes in Blood by Automated counon 80-87-0035OHM corrected for nucl RBC Auto (Bld) [#/Vol]Leukocytes [#/volume] corrected for nucleated erythrocytes in Blood by Automated coun 4.0-11.0[facility] HospitalLymphocytes Auto (Bld) [#/Vol]on 05-74-0054Cpkphftvsfu (Bld) [#/Vol]Lymphocytes [#/volume] in Blood by Automated count1.2-3.8Henry County HospitalLymphocytes/100 WBC Auto (Bld)on 70-24-1749Kuuumwcqgnu/100 WBC (Bld)Lymphocytes/100 leukocytes in Blood by Automated count20.5-60.0[facility] HospitalMCH Auto (RBC) [Entitic mass]on 21-04-1291SMX (RBC) [Entitic mass]MCH [Entitic mass] by Automated count 25.9-34.0[facility] County HospitalMCHC Auto (RBC) [Mass/Vol]on 24-28-2572LXEA (RBC) [Mass/Vol]MCHC [Mass/volume] by Automated count29.9-35.2 [facility] HospitalMCV Auto (RBC) [Entitic vol]on 06-60-7058NZG (RBC) [Entitic vol]MCV [Entitic volume] by Automated count80.0-94.0[facility] HospitalMonocytes Auto (Bld) [#/Vol]on 07-05-6699Bjwdxaqyv (Bld) [#/Vol]Automated blood monocyte count0.3-0.8[facility] Monocytes/100 WBC Auto (Bld)on 83-59-8213Wxdzlvawz/100 WBC (Bld)Automated monocyte %1.7-12.0[facility] HospitalNeutrophils Auto (Bld) [#/Vol]on 06-29-3920Boqutmegbuc (Bld) [#/Vol]Neutrophils [#/volume] in Blood by Automated count1.4-6.5FRegional Medical CenterNeutrophils/100 WBC Auto (Bld)on 62-38-2366Kuepcrygede/100 WBC (Bld)Automated neutrophil %43.0-75.0 [facility] HospitalNo Panel Informationon 16-87-0776Pwbuurdkrbk # (Auto)0.1 10 3/uL0.0-0.7FRegional Medical CenterEthyl Alcohol Level<3 mg/dLHenry County HospitalComment on above:NOTE: 80 mg/dl is the legal limit for a blood alcohol levelImmature Granulocyte # (Auto)0.04 10 3/uL High0.00-0.03Henry [facility] HospitalTroponin I High Sensitivity5.5 pg/mL4.0-76.1FRegional Medical CenterComment on above:CUT-OFF POINTS HAVE BEEN ESTABLISHED BASED [...] AND CLINICAL INFORMATION.Venous Blood Partial Pressure CO249.5 mm[Hg]40.0-52.0[facility] HospitalVenous Blood pH7.3657.330-7.430Henry County HospitalPlatelet mean volume Auto (Bld) [Entitic vol]on 24-20-2851Zcibgfec mean volume (Bld) [Entitic vol]Platelet mean volume [Entitic volume] in Blood by Automated countLow9.5-13.5FRegional Medical CenterPlatelets Auto (Bld) [#/Vol]on 94-28-3860Vxcudecxd (Bld) [#/Vol]Platelets [#/volume] in Blood by Automated zaegm509-948QefknfptpHenry County HospitalProthrombin time (PT)on 00-85-6504YY Coag (PPP) [Time]Prothrombin time (PT)9.0-11.6FRegional Medical CenterRBC Auto (Bld) [#/Vol]on 68-83-0660QHP (Bld) [#/Vol]Erythrocytes [#/volume] in Blood by Automated countLow4.70-6.10[facility] Memorial Hospitalerum or plasma albumin/globulin mass ratioon 32-10-0387Qamoijo/Globulin [Mass ratio]Serum or plasma albumin/globulin mass ratioTriHealth McCullough-Hyde Memorial Hospitalerum or plasma anion gap determinationon 28-07-2839Lqesx gap [Moles/Vol]Serum or plasma anion gap determinationHenry County HospitalBasophils Auto (Bld) [#/Vol]on 53-48-2878Vbsvrnooo (Bld) [#/Vol]Automated basophil count0.0-0.1FRegional Medical CenterBasophils/100 WBC Auto (Bld)on 96-88-8524Nbxnsjbhm/100 WBC (Bld)Automated basophil %0.2-2.0[facility] HospitalCholesterol in LDL Calc [Mass/Vol]on 04-09-2024 Cholesterol in LDL [Mass/Vol]Cholesterol in LDL [Mass/volume] in Serum or Plasma by calculationHenry County HospitalComment on above:<100 mg/dl RDVVZJQ779-714 mg/dl NEAR OR ABOVE VGEZQWH495-937 mg/dl BORDERLINE NQHW808-294 mg/dl HIGH>190 mg/dl VERY HIGHCholesterol in VLDL Calc [Mass/Vol]on 04-09-2024 Cholesterol in VLDL [Mass/Vol]Cholesterol in VLDL [Mass/volume] in Serum or Plasma by calculationHenry County HospitalEosinophils/100 WBC Auto (Bld)on 33-65-3781Bzdowusfvat/100 WBC (Bld)Automated eosinophil %0.9-7.0 [facility] HospitalErythrocyte distribution width Auto (RBC) [Ratio]on 08-01-7364Eersdsepida distribution width (RBC) [Ratio]Erythrocyte distribution width [Ratio] by Automated count11.0-15.0[facility] HospitalEstimated glomerular filtration rate (GFR) non- Americanon 59-81-0809AEI/1.73 sq M.predicted among non-blacks MDRD (S/P/Bld) [Vol rate/Area]Estimated glomerular filtration rate (GFR) non->=60 mL/min/1.73m 2FRegional Medical CenterGlobulin Calc (S) [Mass/Vol]on 46-44-4970Gcyzspsj (S) [Mass/Vol]Serum globulin measurement by calculation (mass/volume)[facility] HospitalGlucose mean value [Mass/volume] in Blood Estimated from glycated hemoglobinon 18-42-2769Aqpkllb glucose Estimated from glycated hemoglobin (Bld) [Mass/Vol]Glucose mean value [Mass/volume] in Blood Estimated from glycated hemoglobinHenry County HospitalHematocrit Auto (Bld) [Volume fraction]on 29-19-7920Dmrajtueou (Bld) [Volume fraction]Hematocrit [Volume Fraction] of Blood by Automated count Low42.0-54.0[facility] HospitalHemoglobin [Mass/volume] in Bloodon 02-98-7735Mrrxeaeckg (Bld) [Mass/Vol]Hemoglobin [Mass/volume] in BloodLow 14.0-18.0[facility] HospitalLaboratory - Chemistry and Chemistry - challengeon 12-23-3436Sxoxlls [Mass/Vol]3.8 g/dL3.4-5.0[facility] HospitalALP [Catalytic activity/Vol]63 U/X55-196OijgnwelhHenry County HospitalALT [Catalytic activity/Vol]14 U/WWaq06-43GcllcutdjHenry County HospitalAST [Catalytic activity/Vol]18 U/L32-92BubnjmuwuHenry County Hospital Bilirubin [Mass/Vol]0.5 mg/dL0.2-1.0[facility] HospitalCalcium [Mass/Vol]9.3 mg/dL8.5-10.1FRegional Medical CenterChloride [Moles/Vol] 107 mmol/P14-278MqbdfvhtiHenry County HospitalCholesterol [Mass/Vol]155 mg/dL <=200[facility] HospitalCholesterol in HDL [Mass/Vol]59 mg/dL40-60 [facility] HospitalComment on above:> or =60 mg/dl - LOW CARDIOVASCULAR RISK<40 mg/dl - HIGH CARDIOVASCULAR RISKCO2 [Moles/Vol]31.4 mmol/L21.0-32.0[facility] HospitalCobalamin (Vitamin B12) [Mass/Vol]991 pg/zW668-2309VxjaqkrzfHenry County HospitalComment on above: Performed at: [email or web address] [id number] Director: Joel Gallego PhD, Phone: [phone] [Mass/Vol]0.77 mg/dL0.70-1.30[facility] HospitalGFR/1.73 sq M.predicted MDRD (S/P/Bld) [Vol rate/Area]mL/min/{1.73_m2}>=60 mL/min/1.73m 2FRegional Medical CenterGlucose [Mass/Vol]96 mg/fN96-078AaojoqmmsHenry County Hospital Potassium [Moles/Vol]4.8 mmol/L3.5-5.1FRegional Medical CenterProtein [Mass/Vol]7.1 g/dL6.4-8.2FBarnesville Hospitalodium [Moles/Vol]144 mmol/H004-412VgowjnlyyHenry County HospitalTriglyceride [Mass/Vol]56 mg/dL <=150[facility] HospitalUrea nitrogen [Mass/Vol]17.0 mg/dL7.0-18.0 [facility] HospitalUrea nitrogen/Creatinine [Mass ratio]22.1 mg/mg [facility] HospitalLaboratory - Hematology and Cell countson 01-84-4463FxP6z (Bld) [Mass fraction]5.7 %4.5-6.2FRegional Medical CenterComment on above:ADA RECOMMENDED LIMIT 4.0 - 6.0ADA THERAPEUTIC TARGET < 7.0ACTION SUGGESTED> 7.0Immature granulocytes/100 WBC (Bld)0.3 %0.0-0.5FRegional Medical CenterLeukocytes [#/volume] corrected for nucleated erythrocytes in Blood by Automated counon 54-11-2519DBG corrected for nucl RBC Auto (Bld) [#/Vol]Leukocytes [#/volume] corrected for nucleated erythrocytes in Blood by Automated coun4.0-11.0[facility] HospitalLymphocytes Auto (Bld) [#/Vol]on 81-35-8576Npcjlmffbfp (Bld) [#/Vol]Lymphocytes [#/volume] in Blood by Automated count1.2-3.8[facility] HospitalLymphocytes/100 WBC Auto (Bld)on 68-26-8126Jwsulopedzp/100 WBC (Bld)Lymphocytes/100 leukocytes in Blood by Automated count20.5-60.0[facility] CenterH Auto (RBC) [Entitic mass]on 66-55-1409RCA (RBC) [Entitic mass]MCH [Entitic mass] by Automated count25.9-34.0[facility] HospitalMCHC Auto (RBC) [Mass/Vol]on 95-83-9599TJSF (RBC) [Mass/Vol]MCHC [Mass/volume] by Automated count29.9-35.2FRegional Medical CenterMCV Auto (RBC) [Entitic vol]on 60-58-5086SKE (RBC) [Entitic vol]MCV [Entitic volume] by Automated countHigh 80.0-94.0[facility] HospitalMonocytes Auto (Bld) [#/Vol]on 29-60-9310Wyerxinnr (Bld) [#/Vol]Automated blood monocyte count0.3-0.8[facility] HospitalMonocytes/100 WBC Auto (Bld)on 83-94-4497Coxeizjpg/100 WBC (Bld)Automated monocyte %1.7-12.0[facility] Neutrophils Auto (Bld) [#/Vol]on 05-21-8102Amauzpyrinb (Bld) [#/Vol]Neutrophils [#/volume] in Blood by Automated count1.4-6.5FRegional Medical Center Neutrophils/100 WBC Auto (Bld)on 50-77-4587Kpslcvqzslm/100 WBC (Bld)Automated neutrophil %43.0-75.0[facility] HospitalNo Panel Informationon 01-87-0412Fyufwtskpib # (Auto)0.1 10 3/uL0.0-0.7FRegional Medical CenterFolate9.40 ng/mL8.60-58.90Henry County HospitalImmature Granulocyte # (Auto)0.02 10 3/uL0.00-0.03[facility] Platelet mean volume Auto (Bld) [Entitic vol]on 88-31-2727Espezzno mean volume (Bld) [Entitic vol]Platelet mean volume [Entitic volume] in Blood by Automated countLow9.5-13.5FRegional Medical CenterPlatelets Auto (Bld) [#/Vol]on 25-00-8830Cortebpoz (Bld) [#/Vol]Platelets [#/volume] in Blood by Automated -939JzuavhlzzHenry County HospitalRBC Auto (Bld) [#/Vol]on 04-09-2024 RBC (Bld) [#/Vol]Erythrocytes [#/volume] in Blood by Automated countLow4.70-6.10 [facility] Hospitalerum or plasma albumin/globulin mass ratioon 19-88-3918Zzxxgqm/Globulin [Mass ratio]Serum or plasma albumin/globulin mass ratioTriHealth McCullough-Hyde Memorial Hospitalerum or plasma anion gap determinationon 80-26-9556Zhhhi gap [Moles/Vol]Serum or plasma anion gap determinationTriHealth McCullough-Hyde Memorial Hospitalerum or plasma total cholesterol/high density lipoprotein (HDL) cholesterol mass melly 26-98-1704Ttyjjuokupp.total/Cholesterol in HDL [Mass ratio]Serum or plasma total cholesterol/high density lipoprotein (HDL) cholesterol mass [facility] HospitalComment on above:3.3 - 4.4 LOW RISK4.4 - 7.1 AVERAGE RISK7.1 - 11.0 MODERATE RISK>11.0 HIGH RISK Reminderson 98-32-9261NdvndqcttGlxsqsozq From: Amy Linn To: EU - Administrative; Sent: 02/13/2024 12:16:44 EST Show up: 05/08/2025 12:16:00 EST Subject: Need 2 yr recheck /Jan 2026 Due Date/Time: 02/18/2026 12:16:00 EST Reminder/Recall Patient will need a 2 yr recheck with PSA with either PRW or REMBERTO.[facility] Office/Clinic Noteon 74-31-6820Obezxef Office/Clinic NoteUrology Office/Clinic Note Chief Complaint elevated [...] INFANTE, TL Mackey, URL In 2 years [address] [place] [address] Additional Instructions: Patient Education Benign [...] History Cancer: Father. Ca (more content not included)...[facility] HospitalComment on above:Result Comment: Electronically Signed By: TL CARMONA PA-C\.br\Date and Time Signed: 02/08/2415:03 ESTNo Panel Informationon 62-02-7496Ibhu Prostate Specific Antigen0.09 ng/mLN/[facility] HospitalComment on above: [facility] ECLIA methodology.Prostate Specific Antigen Total0.4 ng/mL0.0-4.0[facility] HospitalComment on above:[facility] ECLIA methodology.According to the [employer] [employer], Serum PSAshould decrease and remain [...] free prostate specific antigen (PSA)/total PSA ratioon 54-32-9644Wvou PSA/Total PSA [Mass fraction]Serum or plasma free prostate specific antigen (PSA)/total PSA ratio.[facility] HospitalComment on above:The table below lists the probability [...] for any other population of men.Performed at: [employer] [facility] [employer] [id number] Director: Joel Gallego PhD, Phone: [phone] [Mass/volume] in Bloodon 85-48-1524Rrvzheyeho (Bld) [Mass/Vol]13.5 g/dLLow14.0-18.0[facility] HospitalBasophils Auto (Bld) [#/Vol]on 76-00-6313Svmahewhi (Bld) [#/Vol] 0.0 10 3/uL0.0-0.1FRegional Medical CenterBasophils/100 WBC Auto (Bld) on 90-82-3400Wvwykhonf/100 WBC (Bld)0.4 %0.2-2.0[facility] HospitalCholesterol in LDL Calc [Mass/Vol]on 88-66-1076Qrharuytwun in LDL [Mass/Vol]111.0 mg/dLHenry County HospitalComment on above:<100 mg/dl SSHLJNK019-327 mg/dl NEAR OR ABOVE CGACIFW103-219 mg/dl BORDERLINE ZKOR833-064 mg/dl HIGH>190 mg/dl VERY HIGHCholesterol in VLDL Calc [Mass/Vol]on 81-91-1666Nwtbtjfzext in VLDL [Mass/Vol]18.8 mg/dLHenry County HospitalEosinophils/100 WBC Auto (Bld)on 27-75-4196Nnsleqfrqqj/100 WBC (Bld)1.1 % 0.9-7.0[facility] HospitalErythrocyte distribution width Auto (RBC) [Ratio]on 36-42-3959Qavlxrbfkjc distribution width (RBC) [Ratio]13.1 % 11.0-15.0[facility] HospitalEstimated glomerular filtration rate (GFR) non- Americanon 26-77-7357PJI/1.73 sq M.predicted among non-blacks MDRD (S/P/Bld) [Vol rate/Area]mL/min/{1.73_m2}>=60[facility] HospitalGlobulin Calc (S) [Mass/Vol]on 59-39-6616Wpqxsoeu (S) [Mass/Vol]3.7 g/dL [facility] HospitalGlucose mean value [Mass/volume] in Blood Estimated from glycated hemoglobinon 42-83-3047Xygwadm glucose Estimated from glycated hemoglobin (Bld) [Mass/Vol]108 mg/dLHenry County Hospital Hematocrit Auto (Bld) [Volume fraction]on 58-98-4741Pggyaciyfy (Bld) [Volume fraction]42.4 %42.0-54.0[facility] HospitalHemoglobin [Mass/volume] in Bloodon 85-49-7061Aseadvisde (Bld) [Mass/Vol]13.7 g/dLLow 14.0-18.0[facility] HospitalLaboratory - Chemistry and Chemistry - challengeon 41-71-4707Ezwpnoy [Mass/Vol]3.6 g/dL3.4-5.0[facility] HospitalALP [Catalytic activity/Vol]63 U/O06-474ZujeqhbkgHenry County HospitalALT [Catalytic activity/Vol]31 U/U29-77YtnsbimsuHenry County Hospital AST [Catalytic activity/Vol]24 U/L62-94CnapkgxelHenry County Hospital Bilirubin [Mass/Vol]0.7 mg/dL0.2-1.0[facility] HospitalCalcium [Mass/Vol]9.1 mg/dL8.5-10.1FRegional Medical CenterChloride [Moles/Vol] 103 mmol/T20-864FhtellumgHenry County HospitalCholesterol [Mass/Vol]192 mg/dL <=200[facility] HospitalCholesterol in HDL [Mass/Vol]63 mg/dLHigh 40-60[facility] HospitalComment on above:> or =60 mg/dl - LOW CARDIOVASCULAR RISK<40 mg/dl - HIGH CARDIOVASCULAR RISKCO2 [Moles/Vol]28.9 mmol/L21.0-32.0[facility] HospitalCobalamin (Vitamin B12) [Mass/Vol]761.0 pg/mL193.0-986.0[facility] HospitalCreatinine [Mass/Vol]0.79 mg/dL0.70-1.30[facility] HospitalGFR/1.73 sq M.predicted MDRD (S/P/Bld) [Vol rate/Area]mL/min/{1.73_m2}>=60[facility] HospitalGlucose [Mass/Vol]104 mg/cC19-160StpluzsejHenry County Hospital Potassium [Moles/Vol]4.5 mmol/L3.5-5.1FRegional Medical CenterProtein [Mass/Vol]7.3 g/dL6.4-8.2FBarnesville Hospitalodium [Moles/Vol]138 mmol/M994-293KanszylplHenry County HospitalTriglyceride [Mass/Vol]94 mg/dL <=150[facility] HospitalTSH Qn1.603 m[IU]/L0.358-3.740[facility] HospitalUrea nitrogen [Mass/Vol]15.0 mg/dL7.0-18.0[facility] HospitalUrea nitrogen/Creatinine [Mass ratio]19.0 mg/mgHenry County HospitalLaboratory - Hematology and Cell countson 05-67-1139YhG3d (Bld) [Mass fraction]5.4 %4.5-6.2FRegional Medical CenterComment on above:ADA RECOMMENDED LIMIT 4.0 - 6.0ADA THERAPEUTIC TARGET < 7.0ACTION SUGGESTED> 7.0Immature granulocytes/100 WBC (Bld)0.3 %0.0-0.5FRegional Medical CenterLeukocytes [#/volume] corrected for nucleated erythrocytes in Blood by Automated counon 16-58-6206FJK corrected for nucl RBC Auto (Bld) [#/Vol]7.9 10 3/uL4.0-11.0[facility] HospitalLymphocytes Auto (Bld) [#/Vol]on 06-07-2409Jhtxclmfefd (Bld) [#/Vol]2.1 10 3/uL1.2-3.8[facility] HospitalLymphocytes/100 WBC Auto (Bld)on 10-09-2023 Lymphocytes/100 WBC (Bld)25.9 %20.5-60.0[facility] CenterH Auto (RBC) [Entitic mass]on 60-09-1297XBS (RBC) [Entitic mass]31.4 pg25.9-34.0 [facility] HospitalMCHC Auto (RBC) [Mass/Vol]on 43-12-2504GUHQ (RBC) [Mass/Vol]32.3 g/dL29.9-35.2FRegional Medical CenterMCV Auto (RBC) [Entitic vol]on 13-55-4829HVU (RBC) [Entitic vol]97.0 fGTtow60.0-94.0 [facility] HospitalMonocytes Auto (Bld) [#/Vol]on 10-09-2023 Monocytes (Bld) [#/Vol]0.7 10 3/uL0.3-0.8[facility] Monocytes/100 WBC Auto (Bld)on 57-98-2908Ajcixbzde/100 WBC (Bld)9.1 %1.7-12.0 [facility] HospitalNeutrophils Auto (Bld) [#/Vol]on 10-09-2023 Neutrophils (Bld) [#/Vol]5.0 10 3/uL1.4-6.5FRegional Medical Center Neutrophils/100 WBC Auto (Bld)on 22-18-5022Cukjrdishig/100 WBC (Bld)63.2 % 43.0-75.0[facility] HospitalNo Panel Informationon 10-09-2023 Eosinophils # (Auto)0.1 10 3/uL0.0-0.7FRegional Medical CenterFolate 10.90 ng/mL8.60-58.90[facility] HospitalImmature Granulocyte # (Auto)0.02 10 3/uL0.00-0.03[facility] HospitalPlatelet mean volume Auto (Bld) [Entitic vol]on 73-60-0631Ujyjsfqf mean volume (Bld) [Entitic vol] 9.1 fLLow9.5-13.5FRegional Medical CenterPlatelets Auto (Bld) [#/Vol]on 53-82-6319Chtfuwrsp (Bld) [#/Vol]234 10 3/gK702-458SvmszxnqeHenry County HospitalRBC Auto (Bld) [#/Vol]on 93-79-9348TMY (Bld) [#/Vol]4.37 10 6/uLLow 4.70-6.10[facility] Hospitalerum or plasma albumin/globulin mass ratioon 67-12-1407Nxuuvkz/Globulin [Mass ratio]1.0 {ratio}[facility] Hospitalerum or plasma anion gap determinationon 45-45-0137Ecltd gap [Moles/Vol]10.6 mmol/LFBarnesville Hospitalerum or plasma total cholesterol/high density lipoprotein (HDL) cholesterol mass melly 10-09-2023 Cholesterol.total/Cholesterol in HDL [Mass ratio]3.0 {ratio}[facility] HospitalComment on above:3.3 - 4.4 LOW RISK4.4 - 7.1 AVERAGE RISK7.1 - 11.0 MODERATE RISK>11.0 HIGH RISKCBC AUTO DIFFon 93-04-5866EPZY #0.0 103/ul Normal0.0-0.1The [facility] HospitalComment on above:Performed By: #### LIPID, CMP, TSH #### [facility] [address] [address] [address] Peewee Moralessophils/100 WBC (Bld)0.3 %Normal0.2-2.0The [facility] Comment on above:Performed By: #### LIPID, CMP, TSH #### [facility] [address] [place], [place] [address] Dr. Peewee Cruz #0.1 103/ulNormal0.0-0.7The [facility] HospitalComment on above: Performed By: #### LIPID, CMP, TSH #### [facility] [address] [place] [address] Dr. Peewee Brayosinophils/100 WBC (Bld)1.3 %Normal0.9-7.0The [facility] Comment on above:Performed By: #### LIPID, CMP, TSH #### [facility] [address] [place] [address] Dr. Peewee Brayrythrocyte distribution width (RBC) [Ratio]12.4 %Dhrwub95.0-15.0 The [facility] HospitalComment on above:Performed By: #### LIPID, CMP, TSH #### [facility] [address] [place] [address] Dr. Peewee RussellHematocrit (Bld) [Volume fraction]43.2 %Omimkd54.0-54.0The [facility] HospitalComment on above:Performed By: #### LIPID, CMP, TSH #### [facility] [address] [place] [address] Dr. Peewee RussellHemoglobin (Bld) [Mass/Vol]14.3 g/hHQgbrsh99.0-18.0The [facility] HospitalComment on above:Performed By: #### LIPID, CMP, TSH #### [facility] [address] [place] [address] Dr. Peewee Livingston #0.02 10e3/ulNormal0.00-0.03The [facility] Hospitalment on above:Performed By: #### LIPID, CMP, TSH #### [facility] [address] [place] [address] Dr. Peewee Livingston %0.3 %Normal0.0-0.5The [facility] HospitalComment on above: Performed By: #### LIPID, CMP, TSH #### [facility] [address] [place] [address] Dr. Peewee Lipscomb #2.4 103/ulNormal1.2-3.8The [facility] HospitalComment on above:Performed By: #### LIPID, CMP, TSH #### [facility] [address] [place] [address] Dr. Peewee Russellmphocytes/100 WBC (Bld)30.0 %Qqkfii00.5-60.0The [facility] HospitalComment on above:Performed By: #### LIPID, CMP, TSH #### [facility] [address] [address] [address] Peewee Rogers DIFF REQNONormalThe [facility] HospitalComment on above: Performed By: #### LIPID, CMP, TSH #### [facility] [address] [address] [address] Peewee Carrera (RBC) [Entitic mass]31.0 psObvucr01.9-34.0The [facility] HospitalComment on above:Performed By: #### LIPID, CMP, TSH #### [facility] [address] [place] [address] Dr. Peewee Carrera (RBC) [Mass/Vol]33.1 g/tMKxlmve06.9-35.2The [facility] HospitalComment on above:Performed By: #### LIPID, CMP, TSH #### [facility] [address] [address] [address] Peewee Carrera (RBC) [Entitic vol]93.7 hYCeukib06.0-94.0The [facility] HospitalComment on above:Performed By: #### LIPID, CMP, TSH #### [facility] [address] [place] [address] Dr. Peewee Jones #0.7 103/ulNormal0.3-0.8The [facility] HospitalComment on above:Performed By: #### LIPID, CMP, TSH #### [facility] [address] [address] [address] Peewee Nguyenocytes/100 WBC (Bld)8.4 %Normal1.7-12.0The [facility] Comment on above:Performed By: #### LIPID, CMP, TSH #### [facility] [address] [place] [address] Dr. Peewee Ko #4.7 103/ulNormal1.4-6.5The [facility] Hospitalment on above:Performed By: #### LIPID, CMP, TSH #### [facility] [address] [address] [address] Peewee Bookerutrophils/100 WBC (Bld)59.7 %Oislxo03.0-75.0[facility] on above:Performed By: #### LIPID, CMP, TSH #### [facility] [address] [address] [address] Peewee RussellPlatelet mean volume (Bld) [Entitic vol]8.4 fLCritically low 9.5-13.5The [facility] HospitalComment on above:Performed By: #### LIPID, CMP, TSH #### [facility] [address] [address] [address] Peewee RussellPLT208 103/njWpgzdi594-662Hnz [facility] on above: Performed By: #### LIPID, CMP, TSH #### [facility] [address] [place] [address] Dr. Peewee RussellRBC4.61 106/ulCritically low4.70-6.10The [facility] HospitalComhutzel women's hospital on above:Performed By: #### LIPID, CMP, TSH #### [facility] [address] [place] [address] Dr. Peewee RussellWBC7.9 103/ulNormal4.0-11.0[facility] on above: Performed By: #### LIPID, CMP, TSH #### [facility] [address] [place] [address] Dr. Peewee RussellGLYCOHEMOGLOBIN A1Con 15-64-0495UIY RECOMMENDATIONSEE BELOWNormal The [facility] HospitalComhutzel women's hospital on above:Result Comment: ADA RECOMMENDED LIMIT 4.0 - 6.0 ADA THERAPEUTIC TARGET < 7.0 ACTION SUGGESTED > 7.0Performed By: #### LIPID, CMP, TSH #### [facility] [address] [place] [address] Dr. Peewee RussellGlucose [Mass/Vol]108 mg/dLNormalThDunlap Memorial HospitalComment on above:Performed By: #### LIPID, CMP, TSH #### [facility] [address] [address] [address] Peewee RussellHbA1c (Bld) [Mass fraction]5.4 %Normal4.5-6.2The [facility] HospitalComment on above:Performed By: #### LIPID, CMP, TSH #### [facility] [address] [address] [address] Peewee MaldonadoID PROFILEon 50-78-1812PPWV-HDL RATIO NORMSEE BELOWUniversity Hospitals Geneva Medical CenterComment on above:Result Comment: 3.3 - 4.4 LOW RISK 4.4 - 7.1 AVERAGE RISK 7.1 - 11.0 MODERATE RISK >11.0 HIGH RISKPerformed By: #### LIPID, CMP, TSH #### [facility] [address] [address] [address] Peewee RussellCholesterol [Mass/Vol]188 mg/dLNormal<=200The [facility] Comment on above:Performed By: #### LIPID, CMP, TSH #### [facility] [address] [address] [address] Peewee Alonsoesterol in HDL [Mass/Vol]65 mg/dLCritically irvq37-60Pvx [facility] on above:Performed By: #### LIPID, CMP, TSH #### [facility] [address] [address] [address] Peewee RussellCholesterol in LDL [Mass/Vol]107.6 mg/dLUniversity Hospitals Geneva Medical CenterComment on above:Performed By: #### LIPID, CMP, TSH #### [facility] [address] [address] [address] Peewee Alonsoesterfreda.total/Cholesterol in HDL [Mass ratio]2.9 {ratio} NormalThe [facility] on above:Performed By: #### LIPID, CMP, TSH #### [facility] [address] [address] [address] Peewee RussellHDL NORMAL> or = 60 mg/dl - LOW CARDIOVASCULAR RISK <40 mg/dl - HIGH CARDIOVASCULAR RISKNormalThe Desiree HospitalComment on above:Performed By: #### LIPID, CMP, TSH #### [facility] [address] [address] [address] Peewee Sapp CALC NORMALSEE BELOWUniversity Hospitals Geneva Medical CenterComment on above:Result Comment: <100 mg/dl OPTIMAL 100 - 129 mg/dl NEAR OR ABOVE OPTIMAL 130 - 159 mg/dl BORDERLINE HIGH 160 - 189 mg/dl HIGH >190 mg/dl VERY HIGH Performed By: #### LIPID, CMP, TSH #### [facility] [address] [address] [address] Peewee RussellTriglyceride [Mass/Vol]77 mg/dLNormal<=150The [facility] Comment on above:Performed By: #### LIPID, CMP, TSH #### [facility] [address] [address] [address] Peewee RussellVLDL CALC15.4 mg/dLNoMetroHealth Main Campus Medical CenterComment on above: Performed By: #### LIPID, CMP, TSH #### [facility] [address] [place] [address] Dr. Peewee RussellPROF 14(COMP METB)on 28-14-9183Cnwowaj [Mass/Vol]3.7 g/dLNormal 3.4-5.0The [facility] on above:Performed By: #### LIPID, CMP, TSH #### [facility] [address] [address] [address] Peewee RussellAlbumin/Globulin [Mass ratio]1.0 {ratio}NormalThe [facility] HospitalComhutzel women's hospital on above:Performed By: #### LIPID, CMP, TSH #### [facility] [address] [address] [address] Peewee Boone [Catalytic activity/Vol]68 U/SOserqg48-059Fcj [facility] on above:Performed By: #### LIPID, CMP, TSH #### [facility] [address] [address] [address] Peewee Haynes [Catalytic activity/Vol]19 U/DPmojed26-28Xnl [facility] HospitalComment on above:Performed By: #### LIPID, CMP, TSH #### [facility] [address] [address] [address] Peewee Marinon gap [Moles/Vol]8.3 mmol/LNormalThe [facility] HospitalComment on above:Performed By: #### LIPID, CMP, TSH #### [facility] [address] [place] [address] Dr. Peewee RussellAST [Catalytic activity/Vol]20 U/HCdgiop99-18Qdi [facility] HospitalComment on above:Performed By: #### LIPID, CMP, TSH #### [facility] [address] [place] [address] Dr. Peewee RussellBilirubin [Mass/Vol]0.5 mg/dLNormal0.2-1.0The [facility] Comment on above:Performed By: #### LIPID, CMP, TSH #### [facility] [address] [place] [address] Dr. Peewee RussellCalcium [Mass/Vol]9.1 mg/dLNormal8.5-10.1The [facility] Comment on above:Performed By: #### LIPID, CMP, TSH #### [facility] [address] [place] [address] Dr. Peewee RussellChloride [Moles/Vol]103 mmol/[id number] [facility] Comment on above:Performed By: #### LIPID, CMP, TSH #### [facility] [address] [place] [address] Dr. Peewee RussellCO2 [Moles/Vol]32.9 mmol/LCritically high21.0-32.0The [facility] HospitalComment on above:Performed By: #### LIPID, CMP, TSH #### [facility] [address] [place] [address] Dr. Peewee RussellCreatinine [Mass/Vol]0.75 mg/dLNormal0.70-1.30The [facility] HospitalComment on above:Performed By: #### LIPID, CMP, TSH #### [facility] [address] [place] [address] Dr. Yilan ChangEGFR-AF FIJIAN>60Normal>=60The [facility] HospitalComment on above:Performed By: #### LIPID, CMP, TSH #### [facility] [address] [place] [address] Dr. Peewee BrayGFR-NON AF FIJIAN>60Normal>=60The [facility] HospitalComment on above:Performed By: #### LIPID, CMP, TSH #### [facility] [address] [place] [address] Dr. Peewee RussellGlobulin (S) [Mass/Vol]3.6 g/dLNormalThe [facility] HospitalComment on above:Performed By: #### LIPID, CMP, TSH #### [facility] [address] [place] [address] Dr. Peewee RussellGlucose [Mass/Vol]114 mg/dLCritically kzed94-937Yog [facility] HospitalComment on above:Performed By: #### LIPID, CMP, TSH #### [facility] [address] [place] [address] Dr. Peewee RussellPotassium [Moles/Vol]4.2 mmol/LNormal3.5-5.1The [facility] Comment on above:Performed By: #### LIPID, CMP, TSH #### [facility] [address] [place] [address] Dr. Peewee RussellProtein [Mass/Vol]7.3 g/dLNormal6.4-8.2[facility] Comment on above:Performed By: #### LIPID, CMP, TSH #### [facility] [address] [place] [address] Dr. Peewee RussellSodium [Moles/Vol]140 mmol/FTthjlz435-111Jfw [facility] Comment on above:Performed By: #### LIPID, CMP, TSH #### [facility] [address] [place] [address] Dr. Peewee RussellUrea nitrogen [Mass/Vol]16.0 mg/dLNormal7.0-18.0The [facility] HospitalComment on above:Performed By: #### LIPID, CMP, TSH #### [facility] [address] [place] [address] Dr. Peewee Whitney nitrogen/Creatinine [Mass ratio]21.3 mg/mgNormalThe [facility] HospitalComment on above:Performed By: #### LIPID, CMP, TSH #### [facility] [address] [place] [address] Dr. Peewee SánchezHogio 15-54-2981IIX1.754 uIU/mLNormal0.358-3.740The [facility] HospitalComment on above:Performed By: #### LIPID, CMP, TSH #### [facility] [address] [place] [address] Dr. Peewee Alaniz B12 AND FOLATEon 13-78-1980Jmuhgumzt (Vitamin B12) [Mass/Vol] 1002.0 pg/mLCritically wcih113.0-986.0The [facility] HospitalComment on above: Performed By: #### LIPID, CMP, TSH #### [facility] [address] [place] [address] Dr. Peewee RussellFOLATE16.00 ng/mLNormal8.60-58.90The [facility] HospitalComment on above:Performed By: #### LIPID, CMP, TSH #### [facility] [address] [place] [address] Dr. Peewee RussellFOLATE ([facility])on 18-61-9910Wluclz3.8 ng/mLNormal>3.0The [facility] on above:Result Comment: A serum folate concentration of less than 3.1 ng/mL is considered to represent clinical deficiency.Performed By: #### LIPID, CMP, TSH #### [facility] [address] [place] [address] Dr. Peewee RussellCBC AUTO DIFFon [id number] #0.0 103/ulNormal0.0-0.1The [facility] HospitalComhutzel [facility] on above:Performed By: #### CBC #### [facility] [address] [place] [address] Dr. Peewee RussellBasophils/100 WBC (Bld)0.5 %Normal0.2-2.0The [facility] Comment on above:Performed By: #### CBC #### [facility] [address] [place] [address] Dr. Peewee Cruz #0.1 103/ulNormal0.0-0.7The [facility] HospitalComment on above: Performed By: #### CBC #### [facility] [address] [place] [address] Dr. Peewee Brayosinophils/100 WBC (Bld)1.3 %Normal0.9-7.0The [facility] Comment on above:Performed By: #### CBC #### [facility] [address] [place] [address] Dr. Peewee Brayrythrocyte distribution width (RBC) [Ratio]13.3 %Uflmhl08.0-15.0 The [facility] HospitalComment on above:Performed By: #### CBC #### [facility] [address] [place] [address] Dr. Peewee RussellHematocrit (Bld) [Volume fraction]42.1 %Pzimck07.0-54.0The [facility] HospitalComment on above:Performed By: #### CBC #### [facility] [address] [place] [address] Dr. Peewee RussellHemoglobin (Bld) [Mass/Vol]13.9 g/dLCritically low14.0-18.0The [facility] HospitalComment on above:Performed By: #### CBC #### [facility] [address] [place] [address] Dr. Peewee Livingston #0.03 10e3/ulNormal0.00-0.03The [facility] HospitalComment on above:Performed By: #### CBC #### [facility] [address] [place] [address] Dr. Peewee Livingston %0.4 %Normal0.0-0.5The [facility] HospitalComment on above: Performed By: #### CBC #### [facility] [address] [place] [address] Dr. Peewee Lipscomb #1.9 103/ulNormal1.2-3.8The [facility] HospitalComment on above:Performed By: #### CBC #### [facility] [address] [place] [address] Dr. Peewee Russellmphocytes/100 WBC (Bld)23.0 %Dofaxf99.5-60.0The [facility] HospitalComment on above:Performed By: #### CBC #### [facility] [address] [place] [address] Dr. Peewee Rogers DIFF REQNONormalThe [facility] HospitalComment on above: Performed By: #### CBC #### [facility] [address] [place] [address] Dr. Peewee Carrera (RBC) [Entitic mass]32.1 qtBnrfzy76.9-34.0The [facility] HospitalComment on above:Performed By: #### CBC #### [facility] [address] [place] [address] Dr. Peewee Carrera (RBC) [Mass/Vol]33.0 g/jYCkynxr43.9-35.2The [facility] HospitalComment on above:Performed By: #### CBC #### [facility] [address] [place] [address] Dr. Peewee Galloway (RBC) [Entitic vol]97.2 fLCritically high80.0-94.0The [facility] HospitalComment on above:Performed By: #### CBC #### [facility] [address] [place] [address] Dr. Peewee Jones #0.6 103/ulNormal0.3-0.8The [facility] HospitalComment on above:Performed By: #### CBC #### [facility] [address] [place] [address] Dr. Peewee Nguyenocytes/100 WBC (Bld)7.2 %Normal1.7-12.0The [facility] Comment on above:Performed By: #### CBC #### [facility] [address] [place] [address] Dr. Yilan ChangNEUT #5.7 103/ulNormal1.4-6.5The [facility] HospitalComment on above:Performed By: #### CBC #### [facility] [address] [place] [address] Dr. Peewee Bookerutrophils/100 WBC (Bld)67.6 %Mkitbe06.0-75.0[facility]Comment on above:Performed By: #### CBC #### [facility] [address] [place] [address] Dr. Peewee RussellPlatelet mean volume (Bld) [Entitic vol]8.9 fLCritically low 9.5-13.5The [facility] HospitalComment on above:Performed By: #### CBC #### [facility] [address] [place] [address] Dr. Peewee RussellPLT239 103/tjBhzkgv651-418Tut [facility] HospitalComment on above: Performed By: #### CBC #### [facility] [address] [place] [address] Dr. Peewee RussellRBC4.33 106/ulCritically low4.70-6.10The [facility] HospitalComment on above:Performed By: #### CBC #### [facility] [address] [place] [address] Dr. Peewee RussellWBC8.4 103/ulNormal4.0-11.0[facility] WestComment on above: Performed By: #### CBC #### [facility] [address] [place] [address] Dr. Peewee RussellGLYCOHEMOGLOBIN A1Con 19-66-3801WXU RECOMMENDATIONSEE BELOWNormal The [facility] HospitalComment on above:Result Comment: ADA RECOMMENDED LIMIT 4.0 - 6.0 ADA THERAPEUTIC TARGET < 7.0 ACTION SUGGESTED > 7.0Performed By: #### A1C #### [facility] [address] [place] [address] Dr. Peewee RussellGlucose [Mass/Vol]108 mg/dLNormalThDunlap Memorial HospitalComment on above:Performed By: #### A1C #### [facility] [address] [address] [address] Peewee RussellHbA1c (Bld) [Mass fraction]5.4 %Normal4.5-6.2The [facility] HospitalComment on above:Performed By: #### A1C #### [facility] [address] [place] [address] Dr. Peewee MaldonadoID PROFILEon 73-66-0853IPAP-HDL RATIO NORMSEE BELOWUniversity Hospitals Geneva Medical CenterComment on above:Result Comment: 3.3 - 4.4 LOW RISK 4.4 - 7.1 AVERAGE RISK 7.1 - 11.0 MODERATE RISK >11.0 HIGH RISKPerformed By: #### TSH, LIPID, CMP #### [facility] [address] [place] [address] Dr. Peewee Alonsoesterol [Mass/Vol]169 mg/dLNormal<=200The [facility] Comment on above:Performed By: #### TSH, LIPID, CMP #### [facility] [address] [place] [address] Dr. Peewee Alonsoesterol in HDL [Mass/Vol]70 mg/dLCritically ykky02-43Qmi [facility] HospitalComment on above:Performed By: #### TSH, LIPID, CMP #### [facility] [address] [place] [address] Dr. Peewee Alonsoesterol in LDL [Mass/Vol]90.4 mg/dLUniversity Hospitals Geneva Medical CenterComment on above:Performed By: #### TSH, LIPID, CMP #### [facility] [address] [place] [address] Dr. Peewee Mota.total/Cholesterol in HDL [Mass ratio]2.4 {ratio} NormalThe [facility] HospitalComment on above:Performed By: #### TSH, LIPID, CMP #### [facility] [address] [place] [address] Dr. Peewee GraciaL NORMAL> or = 60 mg/dl - LOW CARDIOVASCULAR RISK <40 mg/dl - HIGH CARDIOVASCULAR RISKUniversity Hospitals Geneva Medical CenterComment on above:Performed By: #### TSH, LIPID, CMP #### [facility] [address] [place] [address] Dr. Peewee Sapp CALC NORMALSEE BELOWUniversity Hospitals Geneva Medical CenterComment on above:Result Comment: <100 mg/dl OPTIMAL 100 - 129 mg/dl NEAR OR ABOVE OPTIMAL 130 - 159 mg/dl BORDERLINE HIGH 160 - 189 mg/dl HIGH >190 mg/dl VERY HIGH Performed By: #### TSH, LIPID, CMP #### [facility] [address] [place] [address] Dr. Peewee RussellTriglyceride [Mass/Vol]43 mg/dLNormal<=150The [facility] Comment on above:Performed By: #### TSH, LIPID, CMP #### [facility] [address] [place] [address] Dr. Peewee RussellVLDL CALC8.6 mg/dLNoMetroHealth Main Campus Medical CenterComment on above: Performed By: #### TSH, LIPID, CMP #### [facility] [address] [place] [address] Dr. Peewee RussellPROF 14(COMP METB)on 50-90-7663Hbhsavl [Mass/Vol]3.7 g/dLNormal 3.4-5.0The [facility] HospitalComment on above:Performed By: #### TSH, LIPID, CMP #### [facility] [address] [place] [address] Dr. Peewee RussellAlbumin/Globulin [Mass ratio]1.0 {ratio}NormalThe [facility] HospitalComment on above:Performed By: #### TSH, LIPID, CMP #### [facility] [address] [place] [address] Dr. Peewee Boone [Catalytic activity/Vol]65 U/QQzwwpx60-722Gzi [facility] HospitalComment on above:Performed By: #### TSH, LIPID, CMP #### [facility] [address] [place] [address] Dr. Peewee Haynes [Catalytic activity/Vol]29 U/WDdhdix17-85Knp [facility] HospitalComment on above:Performed By: #### TSH, LIPID, CMP #### [facility] [address] [address] [address] Peewee Martel gap [Moles/Vol]9.6 mmol/LNormalThe [facility] HospitalComment on above:Performed By: #### TSH, LIPID, CMP #### [facility] [address] [address] [address] Peewee RussellAST [Catalytic activity/Vol]21 U/EHcujgc53-89Acm [facility] HospitalComment on above:Performed By: #### TSH, LIPID, CMP #### [facility] [address] [place] [address] Dr. Peewee RussellBilirubin [Mass/Vol]0.5 mg/dLNormal0.2-1.0The [facility] Comment on above:Performed By: #### TSH, LIPID, CMP #### [facility] [address] [place] [address] Dr. Peewee RussellCalcium [Mass/Vol]9.0 mg/dLNormal8.5-10.1The [facility] Comment on above:Performed By: #### TSH, LIPID, CMP #### [facility] [address] [place] [address] Dr. Peewee RussellChloride [Moles/Vol]104 mmol/OOkzvms20-915Xrj [facility] Comment on above:Performed By: #### TSH, LIPID, CMP #### [facility] [address] [place] [address] Dr. Peewee RussellCO2 [Moles/Vol]31.0 mmol/NXkuuuj92.0-32.0The [facility] Comment on above:Performed By: #### TSH, LIPID, CMP #### [facility] [address] [place] [address] Dr. Peewee RussellCreatinine [Mass/Vol]0.75 mg/dLNormal0.70-1.30The [facility] HospitalComment on above:Performed By: #### TSH, LIPID, CMP #### [facility] [address] [place] [address] Dr. Vides ChangEGFR-AF FIJIAN>60Normal>=60The [facility] HospitalComment on above:Performed By: #### TSH, LIPID, CMP #### [facility] [address] [address] [address] Peewee BrayGFR-NON AF FIJIAN>60Normal>=60The [facility] HospitalComment on above:Performed By: #### TSH, LIPID, CMP #### [facility] [address] [address] [address] Peewee RussellGlobulin (S) [Mass/Vol]3.6 g/dLNormalThe [facility] HospitalComment on above:Performed By: #### TSH, LIPID, CMP #### [facility] [address] [address] [address] Peewee RussellGlucose [Mass/Vol]110 mg/dLCritically exll58-989Wza [facility] HospitalComment on above:Performed By: #### TSH, LIPID, CMP #### [facility] [address] [address] [address] Peewee RussellPotassium [Moles/Vol]4.6 mmol/LNormal3.5-5.1The [facility] Comment on above:Performed By: #### TSH, LIPID, CMP #### [facility] [address] [address] [address] Peewee RussellProtein [Mass/Vol]7.3 g/dLNormal6.4-8.2[facility] Comment on above:Performed By: #### TSH, LIPID, CMP #### [facility] [address] [address] [address] Peewee RussellSodium [Moles/Vol]140 mmol/SEtshyh955-959Msg [facility] Comment on above:Performed By: #### TSH, LIPID, CMP #### [facility] [address] [address] [address] Peewee RussellUrea nitrogen [Mass/Vol]13.0 mg/dLNormal7.0-18.0The [facility] HospitalComment on above:Performed By: #### TSH, LIPID, CMP #### [facility] [address] [address] [address] Peewee Whitney nitrogen/Creatinine [Mass ratio]17.3 mg/mgNormalThe [facility] HospitalComment on above:Performed By: #### TSH, LIPID, CMP #### [facility] [address] [place] [address] Dr. Peewee SánchezHogio 75-75-3734RWW8.463 uIU/mLNormal0.358-3.740The [facility] HospitalComment on above:Performed By: #### TSH, LIPID, CMP #### [facility] [address] [place] [address] Dr. Peewee RussellVITAMIN B12on 30-45-4181Lvcevzyby (Vitamin B12) [Mass/Vol]620.0 pg/gTNpbcnk017.0-986.0The [facility] HospitalComment on above:Performed By: #### VITB12 #### [facility] [address] [place] [address] Dr. Peewee RussellCNOVdoron 69-63-6672RMPRPrznls Visit (PULMAV) JB VAIL ([id number]) 1945 M Date Time Provider Department 09/29/20 [...] in the past, he was seeing a [place] furniture finisher. He had PFTs, about 2 years. He [...] years before he quit. 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 IMPRESSION: NO ACUTE RADIOGRAPHIC ABNORMALITY. 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: [employer] Transcribe Date/Time: Sep 29 2020 9:03A Dictated by : ALY MAHONEY MD This examination was interpreted and the report reviewed and electronically signed by: ALY MAHONEY MD on Sep 29 2020 9:05AM EST [id number]_[facility] Vital Signs Date TimeVital SignValuePerforming WnylwdxbrRcxnobtf83-08-7645 09:34-0400Body ysocgt968.8 cmDavid China DO Work Phone: [phone])[address]08-27-2025 09:34-0400 Body mass index (BMI) [Ratio]21.5 kg/s1Sqpsl China DO Work Phone: [phone]08-27-2025 09:34-0400 Body lnixqf69.03 kgDavid China DO Work Phone: [phone])[address]08-27-2025 09:34-0400 Diastolic blood mm[Hg]Keith Atkinson DO Work Phone: [phone]08-27-2025 09:34-0400 Heart rate64 /minDavid Margaritanico DO Work Phone: [phone])[address]08-27-2025 09:34-0400 Systolic blood yfewaamu962 mm[Hg]Keith Atkinson DO Work Phone: [phone])[address]08-05-2025 13:15-0400 Diastolic blood enhgtpia86 mm[Hg]Keith Atkinson DO Work Phone: [phone])[address]08-05-2025 13:15-0400 Heart rate64 /minDavid Girvin DO Work Phone: [phone])[address] [place], [place] 9558508-05-2025 13:15-0400 Respiratory rate20 /minDavid Girvin DO Work Phone: [phone])[address] [place], [place] 9558508-05-2025 13:15-0400 SaO2% (BldA) [Mass fraction]99 %Keith Atkinson DO Work Phone: [phone])[address] [place], [place] 9558508-05-2025 13:15-0400 Systolic blood jungydaz317 mm[Hg]Keith Atkinson DO Work Phone: [phone])[address] [place], [place] 9558508-05-2025 11:40-0400 Body dwdejd308.8 cmDavid Girvin DO Work Phone: [phone])[address] [place], [place] 9558508-05-2025 11:40-0400 Body hdarft08 kgDavid Girvin DO Work Phone: [phone])[address] [place], [place] 9558507-21-2025 09:43-0400 Body dekfbb949.8 cmDavid Girvin DO Work Phone: [phone])[address] [place], [place] 9558507-21-2025 09:43-0400 Body mass index (BMI) [Ratio]21.4 kg/g8Yjcew Girvin DO Work Phone: [phone])[address] [place], [place] 9558507-21-2025 09:43-0400 Body cygkzl34.58 kgDavid Girvin DO Work Phone: [phone])[address] [place], [place] 9558507-21-2025 09:43-0400 Diastolic blood rlvplofm32 mm[Hg]Keith Atkinson DO Work Phone: [phone])[address] [place], [place] 9558507-21-2025 09:43-0400 Heart rate64 /minDavid Girvin DO Work Phone: [phone])[address] [place], [place] 9558507-21-2025 09:43-0400 Respiratory rate16 /minDavid Girvin DO Work Phone: [phone])[address] [place], [place] 9558507-21-2025 09:43-0400 SaO2% (BldA) [Mass fraction]98 %Keith Atkinson DO Work Phone: [phone])[address]07-21-2025 09:43-0400 Systolic blood clrhxqpo467 mm[Hg]Keith Atkinson DO Work Phone: [phone])[address]07-15-2025 10:29-0400 Body sboncq857.8 cmDagradyjeff China DO Work Phone: [phone])[address] [place], [place] 9558507-15-2025 10:29-0400 Body mass index (BMI) [Ratio]21.1 kg/j6Gidhnjhonathan Atkinson DO Work Phone: 1(615)[address] [place], [place] 9558507-15-2025 10:29-0400 Body jiblbl16.67 kgDajhonathan Atkinson DO Work Phone: [phone])[address] [place], [place] 9558507-15-2025 10:29-0400 Diastolic blood wkbewyor75 mm[Hg]Keith Atkinson DO Work Phone: 1(319)[address] [place], [place] 9558507-15-2025 10:29-0400 Heart rate63 /minDavijeff China DO Work Phone: [phone])[address] [place], [place] 9558507-15-2025 10:29-0400 Systolic blood dajpwhpi970 mm[Hg]Keith Atkinson DO Work Phone: 1(105)[address] [place], [place] 9558504-24-2025 08:33-0400 Body xzixij459.8 cmSfelisa Hodges AFTER SCHOOL TEACHER Work Phone: [facility] HospitalWmuotichtn78-05-8108 08:33-0400Body mass index (BMI) [Ratio]22.53 kg/w6Cywnpromi Hodges AFTER SCHO[employer] TEACHER Work Phone: [facility] HospitalZajzjpjfkg54-83-7117 08:33-0400Body twemrk29.22 kgSaromi Hodges AFTER SCHOOL TEACHER Work Phone: [facility] CenterYpkgvndnfv90-13-7853 08:33-0400Diastolic blood jsvojocd69 mm[Hg]Génesis Hodges AFTER SCHOOL TEACHER Work Phone: [facility] HospitalLfjuczdzjo46-22-4787 08:33-0400Heart rate66 /min Génesis Hodges [employer] SCHO[employer] TEACHER Work Phone: [facility] HospitalTzwsykjgbb80-49-1494 08:33-0400Systolic blood tvdnnbez640 mm[Hg]Génesis Hodges AFTER SCHOOL TEACHER Work Phone: [facility] HospitalDvdjvsxxzm16-97-7243 13:33-0400Body yfrdzf472.3 cmSfelisa Hodges AFTER SCHOOL TEACHER Work Phone: [phone] [place], [place] [address]Xsewlokivo00-21-2069 13:33-0400Body mass index (BMI) [Ratio]23.18 kg/w0SpvxoGénesis Hodges AFTER SCHOOL TEACHER Work Phone: [phone] [place], [place] [address]Agqqmsdvtp53-59-7475 13:33-0400Body souyqw88.22 kgGénesis Hodges AFTER SCHOOL TEACHER Work Phone: [facility] HospitalOezuwneztq32-67-7246 13:33-0400Diastolic blood qvmbqtqe27 mm[Hg]Génesis Hodges AFTER SCHO[employer] TEACHER Work Phone: 1(130)694-[address] [place], [place] [address]Itotplljdq91-02-3360 13:33-0400Systolic blood vukvemkn411 mm[Hg]Génesis Hodges [employer] SCHO[employer] TEACHER Work Phone: 1([phone])484-[address] [place], [place] [address]Vatbeesdiv39-98-0196 11:38-0500Body temperature 97.4 [degF]Keith Atkinson DO Work Phone: [phone]03-08-2025 11:38-0500 Diastolic blood qrazqkxb49 mm[Hg]Keith Atkinson DO Work Phone: [phone]03-08-2025 11:38-0500 Heart rate85 /Hope Atkinson DO Work Phone: [phone])889-15[facility]03-08-2025 11:38-0500 Respiratory rate18 /Hope Atkinson DO Work Phone: [phone]03-08-2025 11:38-0500 SaO2% (BldA) [Mass fraction]97 %Keith Atkinson DO Work Phone: [facility]03-08-2025 11:38-0500 Systolic blood fdrghelf566 mm[Hg]Keith Atkinson DO Work Phone: [facility]03-08-2025 06:00-0500 Body .2 kgDajhonathan Atkinson DO Work Phone: [facility]03-07-2025 21:30-0500 Body ezocwg246.8 cmDajhonathan Atkinson DO Work Phone: [facility]02-03-2025 08:57-0500 Body mass index (BMI) [Ratio]23.49 kg/b3Vefxdrlthpqyobani Aguirre DO Work Phone: [facility] HospitalHsyoiinuph02-70-5269 08:57-0500Body cjoqcn75.21 kgChjoshtopher Aguirre DO Work Phone: [facility] HospitalWtoqwuplfm51-49-6138 08:57-0500Diastolic blood qokgfijc73 mm[Hg]Casper Aguirre DO Work Phone: [facility] HospitalKtbiniccwc54-06-8955 08:57-0500Heart rate75 /min Casper Aguirre DO Work Phone: [facility] HospitalBqaqyspora25-65-9091 08:57-5283YcT9% (BldA) [Mass fraction]97 %Casper Aguirre DO Work Phone: [facility] HospitalPvcwebwqil95-93-6810 08:57-0500Systolic blood mxaiwtmk619 mm[Hg]Jean Paultristian Timothy DO Work Phone: [facility] HospitalQtmpezvelo27-43-6857 08:00-0500Body hatxtt663.8 cmHenry [facility]01-22-2025 08:00-0500Body mass index (BMI) [Ratio]22.8 kg/v6NywkxwyeyHenry [facility] Hospital01-22-2025 08:00-0500Body bxiyujdkvqa76.2 [degF][facility]01-22-2025 08:00-0500Body lxiiun69.12 kgHenry [facility] Hospital01-22-2025 08:00-0500Diastolic blood rxbxuigb31 mm[Hg][facility]01-22-2025 08:00-0500 Heart rate70 /[facility]01-22-2025 08:00-3024GfM3% (BldA) [Mass fraction]97 %[facility]01-22-2025 08:00-0500 Systolic blood dxklpqva235 mm[Hg][facility]11-14-2024 11:53-0500Blood Pressure LocationJENNIFER KRISTINE [facility]11-14-2024 11:53-0500Body zpbswccykez69.6 [degF]TL KRISTINE [facility] [facility]11-14-2024 11:53-0500Diastolic blood sfmxsyqf15 mm[Hg]TL CARMONA [facility]11-14-2024 11:53-0500Heart rate72 /minJENNIFER KRISTINE [facility]11-14-2024 11:53-0500Respiratory rate18 /minJENNIFER KRISTINE [facility]11-14-2024 11:53-0500Systolic blood lpljsvom302 mm[Hg]TL CARMONA [facility]10-29-2024 09:35-0400Body kxdkgrdysah38 [degF][facility]10-29-2024 09:35-0400Diastolic blood sursbzrp86 mm[Hg][facility]10-29-2024 09:35-0400Heart rate62 /[facility]10-29-2024 09:35-0632KfS0% (BldA) [Mass fraction]98 %[facility]10-29-2024 09:35-0400Systolic blood qfgekxke514 mm[Hg][facility]10-29-2024 08:28-0400Body qaquuc240.8 [facility]09-[facility]2024 14:24-0400Body mass index (BMI) [Ratio]22.2 kg/f0CdcbbbufyHenry County Hospital09-25-2024 14:24-0400Body zivrjgskkbl61.5 [degF][facility]09-25-2024 14:24-0400Diastolic blood mm[Hg][facility]09-25-2024 14:24-0400Heart rate76 /[facility]09-25-2024 14:24-0400Respiratory rate18 /[facility]09-25-2024 14:24-0061IhC5% (BldA) [Mass fraction]99 %[facility]09-25-2024 14:24-0400 Systolic blood dwfikfvh541 mm[Hg][facility]09-25-2024 11:58-0400Body xidqei791.8 cmHenry [facility]09-25-2024 11:58-0400Body nyobau81.3 kgHenry [facility]07-23-2024 08:12-0400Body gfkhem897.8 [facility]07-23-2024 08:12-0400Body mass index (BMI) [Ratio]21.8 kg/x3XdedpgrufHenry County Hospital07-23-2024 08:12-0400Body xdzrijwmbov97.3 [degF][facility]07-23-2024 08:12-0400Body mocdaf93.94 kgHenry [facility] 10-14-2023 08:12-0400Diastolic blood mm[Hg][facility]07-23-2024 08:12-0400Heart rate68 /[facility] 10-14-2023 08:12-4876IyM3% (BldA) [Mass fraction]97 %[facility]07-23-2024 08:12-0400Systolic blood mm[Hg][facility]01-16-2024 08:10-0500Body .8 cmDajhonathan Atkinson Other [employer] Other 01-16-2024 08:10-0500Body mass index (BMI) [Ratio] 23.53 kg/f7Phbiljhonathan Atkinson Other [employer] Other 01-16-2024 08:10-0500Body xmagbuztnnq57.9 [degF]Keith Atkinson Other [employer] Other 01-16-2024 08:10-0500Body fpcbko19.39 kgDajhonathan Atkinson Other [employer] Other 01-16-2024 08:10-0500Diastolic blood yqawtttr75 mm[Hg] Keith Atkinson Other [employer] Other [id number] 08:10-0500Respiratory rate18 /minDisadora Atkinson Other [employer] Other 01-16-2024 08:10-4216NjF2% (BldA) [Mass fraction]98 % Keith Atkinson Other [employer] Other 01-16-2024 08:10-0500Systolic blood cbnordth266 mm[Hg] Kieth Atkinson Other [employer] Other 11-06-2023 11:09-0500Blood Pressure LocationPatricjune ACOSTA [facility]11-06-2023 11:09-0500Diastolic blood fsmidxtk03 mm[Hg]Sanjuanita ACOSTA [facility]11-06-2023 11:09-0500Heart rate70 /minSanjuanita ACOSTA [facility]11-06-2023 11:09-0500Respiratory rate16 /minSanjuanita ACOSTA [facility]11-06-2023 11:09-0500Systolic blood mm[Hg]Sanjuanita ACOSTA [facility]07-11-2023 08:10-0400Body zvwdko737.8 cmDajhonathan Atkinson Other [employer] Other [phone] 08:10-0400Body mass index (BMI) [Ratio] 21.88 kg/f8LuledKeith Atkinson Other [employer] Other 947123-40-0965 08:10-0400Body icttmdvvqrm33.5 [degF]Keith Atkinson Other [employer] Other 088390-83-3058 08:10-0400Body atzecq86.17 kgDajhonathan Atkinson Other [employer] Other 896239-01-9549 08:10-0400Diastolic blood hscdvzqu65 mm[Hg] Keith Atkinson Other [employer] Other 07-11-2023 08:10-0400Respiratory rate18 /Hope Atkinson Other [employer] Other 100193-23-3983 08:10-5138XhJ6% (BldA) [Mass fraction]99 % Keith Atkinson Other [employer] Other 07-11-2023 08:10-0400Systolic blood lkavferh350 mm[Hg] Keith Atkinson Other [employer] Other 321261-89-7148 09:10-0500Body bnsqsy924.8 cmDajhonathan Atkinson Other [employer] Other 199593-41-7275 09:10-0500Body mass index (BMI) [Ratio] 22.74 kg/k1Ilcdsjhonathan Atkinson Other [employer] Other 693434-25-7594 09:10-0500Body hsdekrcjkxh22.5 [degF]Keith Atkinson Other [employer] Other 469831-61-1228 09:10-0500Body xkfurf27.9 kgDajhonathan Atkinson Other [employer] Other [phone] 09:10-0500Diastolic blood bpwyzluy76 mm[Hg] Keith Atkinson Other [employer] Other 372358-44-2814 09:10-0500Respiratory rate18 /minDisadora Atkinson Other [employer] Other 276679-95-8444 09:10-5311VfO5% (BldA) [Mass fraction]98 % Keith Atkinson Other [employer] Other 02-27-2023 09:10-0500Systolic blood ivfzkwcz640 mm[Hg] Keith Atkinson Other [employer] Other 654682-63-9065 09:10-0500Body kfamvx349.8 cmDajhonathan Atkinson Other [facility] [facility] Other 01-05-2023 09:10-0500Body mass index (BMI) [Ratio] 22.67 kg/o4ElkdoKeith Atkinson Other [employer] Other 051400-69-8083 09:10-0500Body ukrchqofwia66.5 [degF]Keith Atkinson Other [employer] Other 414047-10-7728 09:10-0500Body .67 kgDajhonathan Atkinson Other [facility] 627167-39-0031 09:10-0500Diastolic blood agbobddo58 mm[Hg] Keith Atkinson [facility] Other 871122-41-7292 09:10-0500Respiratory rate18 /minDisadora Atkinson Other [place] [employer] Other 01-05-2023 09:10-7565LsX5% (BldA) [Mass fraction]99 % [facility] At[facility] [employer] Other 01-05-2023 09:10-0500Systolic blood nddedvqp730 mm[Hg] Keith Atkinson [facility] [employer] Other 07-18-2022 15:01-0400Blood Pressure LocationPatrick ACOSTA [facility] 07-18-2022 15:01-0400Diastolic blood mm[Hg] Sanjuanita ACOSTA [facility] 07-18-2022 15:01-0400Heart rate72 /minPatrick ACOSTA [facility] 07-18-2022 15:01-0400Systolic blood rldfbwuu383 mm[Hg] Sanjuanita ACOSTA [facility] 06-23-2022 09:10-0400Body icnvps431.8 cmDajhonathan Atkinson Other [employer] [facility] Other 06-23-2022 09:10-0400Body mass index (BMI) [Ratio] 21.88 kg/d5JzcuzKeith Atkinson Other [employer] [facility] Other 06-23-2022 09:10-0400Body wddzyfrcngs21.2 [degF]Keith Atkinson Other [employer] [facility] Other 06-23-2022 09:10-0400Body .17 kgDajhonathan Atkinson Other [employer] [facility] Other 06-23-2022 09:10-0400Diastolic blood jseznvgn35 mm[Hg] Keith Atkinson Other [employer] Other 06-23-2022 09:10-0400Respiratory rate18 /minDisadora Atkinson Other [employer] Other 06-23-2022 09:10-7526PhU5% (BldA) [Mass fraction]98 % Keith Atkinson Other [employer] Other 06-23-2022 09:10-0400Systolic blood cxjwykfk973 mm[Hg] Keith Atkinson Other [employer] Other 02-16-2022 17:00-0500Body acshfg433.8 cmDavid Hyba Other [employer] [facility] Other 02-16-2022 17:00-0500Body mass index (BMI) [Ratio] 22.24 kg/s2Dcjwv Hykes Other [employer] Other 02-16-2022 17:00-0500Body .31 kgDavid Hykes Other [employer] [facility] Other 12-21-2021 09:10-0500Body hdluri747.8 cmDajhonathan Atkinson Other [employer] [facility] Other 12-21-2021 09:10-0500Body mass index (BMI) [Ratio] 22.67 kg/i8Yolitjhonathan Atkinson Other [employer] Other 12-21-2021 09:10-0500Body lbcextnguhe91.4 [degF]Keith Atkinson Other [employer] [facility] Other 12-21-2021 09:10-0500Body mkxhig44.67 kgDajhonathan Atkinson Other [employer] [facility] Other 12-21-2021 09:10-0500Diastolic blood ijmouylq48 mm[Hg] Keith Atkinson Other [employer] Other 12-21-2021 09:10-0500Respiratory rate18 /minDavijeff Atkinson Other [employer] [facility] Other 12-21-2021 09:10-2194FlG8% (BldA) [Mass fraction]99 % Keith Atkinson Other [facility] Other 12-21-2021 09:10-0500Systolic blood wbgxfjja342 mm[Hg] Keith Atkinson Other [facility] [employer] Other Encounters Encounter DateEncounter TypeCare ProviderFacilityStart: 11-17-2024 End: 65-53-4142golrchafkzHrfti Girvin DO Work Phone: [facility] Work Phone: Start: 11-17-2024 End: 89-96-6472Hvxwrjp encounter procedureMyles Bonilla APRN-[facility] Work Phone: Start: 10-26-2024 End: 32-42-0700mvvdackoxoCtzwx GirvinFacility:[facility] Start: 95-37-9509Uam-patient / Non-visitAndrez Toledo MD-[facility] Work Phone: Start: 10-12-2024 End: 78-41-9814Hkhrmau encounter procedureKeith Atkinson DO-[facility] [address] Work Phone: Start: 10-12-2024 End: 71-75-2037tqmovhixqzXfvvs [place] DO Work Phone: [facility] Work Phone: Start: 10-11-2024 End: 74-97-3536oigjogjwycSrzsz [place] DO Work Phone: [facility] Work Phone: Start: 10-11-2024 End: 66-58-8026Hcgbjbl encounter Aretha Hodges APRN-FNP-C-[facility] [place] Work Phone: Start: 10-05-2024 End: 32-67-5891qeyykznsqkEywqm Girvin DO Work Phone: [facility] Work Phone: Start: 10-05-2024 End: 08-31-9087Azzrcsg encounter procedureAndrez Toledo MD-[facility] Work Phone: Start: 07-15-2024 End: 27-18-1114Vsgvlf Tiffani Hodges [employer] TE[employer]ER Work Phone: aNA BELLEVUEStart: 07-15-2024 End: 51-50-4676Pgvaoq flowsMirta Hodges AFTER SCHOOL TEACHER Work Phone: aNA BELLEVUEStart: 07-15-2024 End: 13-30-5296Hgojnl outpatient visit 25 minutesSaraminda Hodges [employer] SCHOOL TEACHER Work Phone: aNA BELLEVUEComment on above:Cognitive impairment (Primary Dx); Abnormal finding on MRI of brain; Vertigo; Cervical myelopathy (CMS/HCC)Start: 07-15-2024 End: 25-96-7896uowqcrzvgrZLWOY CARROLLNot AvailableStart: 07-07-2024 End: 50-18-2867Puhdfro encounter procedureCollin Iqbal PhD Work Phone: aNA Debbiement on above:Mild neurocognitive disorder (Primary Dx); Word finding difficulty; Anxiety with depression; Family history of dementiaStart: 07-07-2024 End: 84-45-9736nfajqlkssjXEHNNXVCCZF HASSETTNot AvailableStart: 07-01-2024 End: 19-97-6023Vreego Sydni Franco MD Work Phone: noms NB OPHTStart: 07-01-2024 End: 74-46-8352Ckppfa Sydni Franco MD Work Phone: noms NB OPHTStart: 07-01-2024 End: 70-25-2077wgaaglmnqwGHASW M ALLENNot AvailableStart: 06-28-2024 End: 69-91-7171Lpplsb Brandyn Iqbal PhD Work Phone: aNA SANDUSKYStart: 06-28-2024 End: 96-50-7054Jhgylc Brandyn Iqbal PhD Work Phone: aWINSTON SANDUSKYStart: 06-28-2024 End: 08-37-4580Ljgnwcx encounter Eliecer Iqbal PhD Work Phone: aWINSTON LISSETTEomment on above:Cognitive impairment (Primary Dx); Memory loss; Word finding difficulty; Anxiety with depressionStart: 06-28-2024 End: 52-69-9422sxtellkockJQBABAVE DENBESTENNot AvailableStart: 06-16-2024 End: 12-86-2655Wqwcgi Tiffani Hodges [employer] SCHO[employer] TEACHER Work Phone: aWINSTON BELLEVUEStart: 06-16-2024 End: 18-12-2177Mnvqry Tiffani Hodges [employer] S[employer] TEACHER Work Phone: aNA BELLEVUEStart: 06-16-2024 End: 94-32-5402Vycgdd outpatient visit 25 minutesSaromi Hodges [employer] SCHO[employer] TEACHER Work Phone: aNA MARCEUEComment on above:Vertigo (Primary Dx); Abnormal finding on MRI of brain; Cognitive impairment; Cervical myelopathy ([facility]/HCC)Start: 06-16-2024 End: 67-68-5132qcqnteijhrDDNQV CARROLLNot AvailableStart: 05-28-2024 End: 53-68-8441Sbtnooxiow and management of inpatientDavid Girvin DO Work Phone: [facility] [place] [facility] Work Phone: Start: 05-28-2024 End: 11-37-1619deyoagjhgmo encounterDavid Girvin DO Work Phone: [facility] Work Phone: Start: 05-28-2024 End: 77-12-9463dlcribixsjYjhb M KaplerFacility:[facility] Start: 06-04-1500Baw-patient / Non-visitDavid Girvin DO Work Phone: [facility] Work Phone: Start: 04-26-2024 End: 73-40-1004Jmfhhq flowsheetChristopher Timothy DO Work Phone: ana BELLEVUEStart: 04-26-2024 End: 82-60-4467Ulcphd flowsheetChristopher Timothy DO Work Phone: ana BELLEVUEStart: 04-26-2024 End: 29-67-9546Ilnrzk outpatient visit 25 minutesChristopher Timothy DO Work Phone: ana BELLEVUEComment on above:Mild cognitive impairment (Primary Dx); Cervical myelopathy (CMS/HCC)Start: 04-26-2024 End: 50-78-9435gqsgsbjgcsXAFEBHZDCWI HASSETTNot AvailableStart: 04-14-2024 End: 82-07-3929glaumgfexaKouonlbtyBlanchard [facility] Work Phone: Start: 04-14-2024 End: 44-79-8840Ahytqqn encounter procedureNov[facility] Physician GroupMayers Memorial Hospital Districtue Work Phone: Start: 65-46-8036Kvv-patient / Non-visitNovant [facility] Work Phone: Start: 02-05-2024 End: 04-67-3019dvnycwutsjHR-C JENNIFER E PERRYFacility:EU tart: 02-05-2024 End: 19-03-1727Ogzkezk encounter procedureJEDOUG Mackey KRISTINE [facility] start: 01-30-2024 End: 41-86-9903tsvmcxuovqLjeytgi R WATERSFacility:EU ueStart: 01-30-2024 End: 03-82-3624Lgkflpd encounter procedureSanjuanita ACOSTA [facility] start: 06-15-4694Usy-patient / Non-visitFirelands Physician [facility] Work Phone: Start: 01-20-2024 End: 93-81-8118kulwfduwyvBwgyebkhyBlanchard [facility] Work Phone: Start: 01-20-2024 End: 63-02-3863Nfpiiuq encounter procedureFirpine bluffss [facility] Work Phone: Start: 73-88-5882Eei-patient / Non-visitFirelands Physician [facility] Work Phone: Start: 12-17-2023 End: 06-94-7358uomezgkwmpThukbteroBlanchard [facility] Work Phone: Start: 12-17-2023 End: 57-51-3487Cjjyucg encounter procedureFirelands Physician Group-[facility] [place] Work Phone: Start: 10-14-2023 End: 51-97-5225lxgoqtwearUdqzmpjqzBlanchard [facility] Work Phone: Start: 10-14-2023 End: 46-87-1971Beyvzls encounter procedureFirpine bluffss Physician Group-[facility] [place] Work Phone: Start: 49-58-3953Fys-patient / Non-visitFirelands [facility] Work Phone: Start: 97-95-5124Hif-patient / Non-visitFirelands Physician Group-[facility] [place] Work Phone: Start: 05-12-2023 End: 85-76-9990jwtnywvewlRhqxyld R WATERSFacility:EU BellevueStart: 05-12-2023 End: 51-57-3479Gwgrwxa encounter procedureSanjuanita ACOSTA [facility] start: 04-14-2023 End: 61-44-5167pchtlpkzlfUlzlh [place] Other [employer] Other Start: 19-95-7376Ncdfifdea encounterDavid RajG [facility] BellevueStart: 04-08-2023 End: 07-07-2418uzsnxgohkaEuizt [place] Other [employer] Other start: 65-53-9328Egvibw outpatient visit 25 minutes Keith Lerma [facility] BellevueStart: 03-10-2023 End: 40-02-4265acetpevyblZnbho [place] Other [employer] Other start: 38-14-8223Jgghrwzwn encounterDavid ChinaFPG [facility] BellevueStart: 01-27-2023 End: 16-75-5936Raqcabq encounter procedurePaeulalio ACOSTA [facility] start: 11-28-2022 End: 20-13-2021fiaxnjqfzhIbrwe Girvin Other [employer] Other Start: 81-06-9466Neaimqnfl encounterDavid RajG [facility] BellevueStart: 10-01-2022 End: 50-06-2769arsxzfubwmYkpsp [place] Other [employer] Other Start: 67-10-1782Gjhuqz outpatient visit 25 minutes Keith Lerma [facility] BellevueStart: 09-27-2022 End: 96-90-5447xurwzefpvfShsmf [place] Other [employer] Other Start: 06-45-6443Bcyuddedn encounterDavid GirnicoFPG [facility] BellevueStart: 06-14-2022 End: 76-77-9260rhcrxwqhdnUdyom Girvin Other [employer] Other Start: 76-56-4159Uakdkahzs encounterDavid MargaritaMarissaG [facility] BellevueStart: 05-29-2022 End: 07-10-9229rlimlqkynnHivnw Girvin Other [employer] Other Start: 31-32-9517Agggdahfc encounterDavid MargaritaMarissaG [facility] BellevueStart: 05-20-2022 End: 75-57-9627ghdbyqxbaqWmyoi Girnico Other [facility] [employer] Other Start: 84-43-3705Xzdzmd outpatient visit 15 minutes Keith Lerma [facility] ueStart: 04-05-2022 End: 22-52-3574pgcabrinkuZqnjh Girnico Other [employer] Other Start: 24-86-1491Wrfkrvfti encounterDavid MargaritaMarissaG [facility] BellevueStart: 03-28-2022 End: 56-62-5720sdmoxtndkdRwjlc Girvin Other [employer] Other Start: 22-14-2789Dwppri outpatient visit 25 minutes Keith Lerma [facility] BellevueStart: 03-25-2022 End: 79-56-4021znybrhxfdoBP KEITH ATKINSONFacility:K4Ryuii: 10-08-2021 End: 88-41-9190Hgybnjm encounter Sher ACOSTA [facility] start: 10-04-2021 End: 10-58-6090cmpjlbffqpOA SANJUANITA ACOSTAFacility:Q8Qzlfh: 09-13-2021 End: 79-41-8734eegshuopnwBogeh [place] Other [employer] Other Start: 25-77-9780Oqakco outpatient visit 25 minutes Keith Lerma [facility] BellevueStart: 09-10-2021 End: 31-36-2918zdsbhicjphYF KEITH ATKINSONFacility:C3Mgumt: 07-20-2021 End: 02-20-9424jaxlsdsqkeFcnxh Hykes Other [employer] Other Start: 04-49-8409Dfbmlyyso encounterDavid Perla GastroenterologyStart: 06-04-2021 End: 64-28-2979xghahsqlvwFadns [place] Other [employer] Other Start: 06-48-7904Ixitlxoeu encounterDavid Maria Guadalupe [facility] BellevueStart: 05-09-2021 End: 95-59-4967zaidcaiwwfFlhcy Hykes Other [employer] Other Start: 99-74-8263Gwtwca outpatient visit 25 minutes Keith Duncan GastroenterologyStart: 04-04-2021 End: 88-81-2356bubsacmyooHdqgh [place] Other [employer] Other Start: 04-36-5915Jpzbopkwt encounterDavid Maria Guadalupe [facility] BellevueStart: 03-28-2021 End: 46-18-6029gzgcwgvmtdQidda Girnico Other [employer] Other Start: 92-17-5400Qjjvcatae encounterDavid GirnicoFPG [facility] BellevueStart: 03-27-2021 End: 55-41-7639nfinycfshgPfpam Girvin Other [place] [employer] Other Start: 33-28-9660Vilafcjcl encounterKeith Lerma [facility] Medicinetart: 03-13-2021 End: 29-21-3258fbgsgbduzxCvrzb Girvin Other [employer] Other Start: 07-58-4833Rkmdux outpatient visit 25 minutes Keith Lerma [facility] Procedures DateProcedureProcedure DetailPerforming ClinicianStart: 07-01-2024 End: 74-43-6875Dpnsq medical xm&eval compre new pt 1/> vstCortical age-related cataract of both eyesCarol Franco MD Work Phone: comment on above:Cortical age-related cataract of both eyes (Primary Dx); Blepharitis of upper eyelids of both eyes, unspecified typeStart: 21-96-4489ZZE of headKeith Atkinson DO Work Phone: Start: 53-05-6214Ldjpxxzngak biopsy of prostate using ultrasound guidanceGlympse Start: 42-97-7067UHS screeningDR KEITH ATKINSONComkeren on above:Performed By: #### PSAD #### [facility] [address] [place] [address] Dr. Peewee RussellStart: 38-83-0865ofosv elbow removal of hardwarePaRibbit Start: 66-46-0016Dqjx reduction of fracture of elbow with internal fixationPaRibbit Comment on above:Right elbowStart: 12-26-2011 Transurethral prostatectomyPaRibbit Start: 53-18-6274Oqasahvztr studiesPaRibbit Start: 58-52-4998Xpkefgrtjbbpxtk guided transrectal cryoablation of prostateGlympse Start: 64-53-4260GnuwrfjvrvEhvibof WATERS arthroscopyPaeulalio ACOSTA Comment on above:Right shoulderlower back surgery Sanjuanitasoren ACOSTA neck surgery 3Pekta ACOSTA Comment on above:zephyr plate -titaniumRight hand third finger surgeryPaeulalio ACOSTA Plan of Treatment DateCare ActivityDetailAuthorStart: 79-17-6927QjjeabtuxHenry County Hospital Start: 10-11-2024 End: 38-46-2548Mevhhzw encounter qwlcqygwg56/21/2025 9:40 AM EDT Office Visit MARGUERITE RAMRÍEZ [address] [place] [phone] Génesis Hodges NP [address] [place] [address] MARGUERITE GARCIAtart: 08-23-2024 End: 31-33-6062VL Brain WO and W contrast IVMR brain w and wo contrast routine Imaging Routine Abnormal finding on MRI of brain Cognitive impairment Expected: 08/23/2024 (Approximate), Expires: 07/15/2025[facility] HealthcareComment on above: Expected: 08/23/2024 (Approximate), Expires: 07/15/2025Start: 07-15-2024 End: 87-48-3276Ckfmxvhfwor [Units/volume] in Serum or PlasmaTSH Lab Routine Cognitive impairment Expected: 07/15/2024 (Approximate), Expires: 07/15/2025[facility] Work Phone: comment on above:Expected: 07/15/2024 (Approximate), Expires: 07/15/2025Start: 07-15-2024 End: 48-00-2053Auqmhjz encounter procedureMARGUERITE RAMÍREZComment on above:Arrived Start: 07-07-2024 End: 57-71-0373Lobgssh encounter ziaxcsntg94/16/2025 9:00 AM EDT Office Visit MARGUERITE WOLFF [address] [address] [place] [phone] aNA SANDUSKYStart: 07-01-2024 End: 20-41-9648Rhshsrq encounter procedureNOMS NB OPHTComment on above:Arrived Start: 06-28-2024 End: 50-04-3679Xnmsrgh encounter vwfjoplab76/07/2025 9:30 AM EDT Office Visit MARGUERITE WOLFF [address] [facility] [address] [place] [phone] Collin Iqbal, PhD [address] [place] [id number] Cognitive impairmentANA SANDUSKYComment on above:Cognitive impairmentStart: 06-16-2024 End: 07-54-7757Uiemhii encounter incjkmxkd91/26/2025 1:40 PM EDT Office Visit MARGUERITE RAMÍREZ [address] [place] [address] Génesis Hodges NP [address] [place] [phone] ArrivedANA DESIREEComment on above:ArrivedStart: 81-28-6813OguzeirflTriHealth McCullough-Hyde Memorial Hospitaltart: 51-01-2063Ooisdgxw to neurologistTriHealth McCullough-Hyde Memorial Hospitaltart: 07-27-6823Xhynpdkc admissionHenry County Hospital Start: 04-26-2024 End: 47-24-9541Zfuxjjq encounter whfityxur20/03/2025 9:00 AM EST Office Visit MARGUERITE RAMÍREZ [address] [place] [phone] Casper Aguirre DO [address] [place], [place] [phone] ArrivedANA DESIREEComment on above:ArrivedStart: 12-17-2023 [facility] Work Phone: Comprehensive metabolic 1999 panel - Serum or Plasma [facility] HospitalComprehensive metabolic 1999 panel - Serum or PlasmaHenry County HospitalCT Abdomen and Pelvis W contrast IV [facility] HospitalPatient EducationProtestant Hospital Work Phone: [facility] referralOhio State [facility] Work Phone: XR Chest 2 [facility] Immunizations Immunization DateImmunizationNotesCare JqjjptaqVobwgmxd21-32-0194QDOTL-36 Vaccine Pfizer - Documentation Purposes OnlyDavid Girvin Other [facility]10-30-2023Flu Shot - Documentation Purposes OnlyDavid Girvin Other [facility]10-30-2023influenza virus vaccine, unspecified formulationGlympse [facility]09-15-2022influenza virus vaccine, unspecified formulationGlympse [facility]09-15-2022SARS-CoV-2 (COVID-19) mRNAMUL.ORD!i01322Zwoeclg WATERS [facility]09-15-2022influenza, seasonal, injectableDavid Girvin Other [facility]04-08-2022SARS-CoV-2 (COVID-19) mRNA-1273 vaccineGlympse [facility]burgComment on above:Result Comment: 2023-01-27: [id number], seasonal, injectableDavid Girvin Other [facility]10-06-2021influenza virus vaccine, unspecified formulationGlympse [facility]10-06-2021pneumococcal polysaccharide vaccine, 23 valentGlympse [facility]09-25-2021COVID-19 Vaccine Moderna - Documentation Purposes OnlyDavid Girvin Other [facility] Shawment on above:Result Comment: 2023-01-27: [id number] vaccine recombinantDavid Girvin Other [facility]03-09-2021COVID-19 Vaccine Moderna - Documentation Purposes OnlyDavid Girvin Other [facility]02-08-2021COVID-19 Vaccine Moderna - Documentation Purposes OnlyDavid Girvin Other [facility]12-29-2020zoster vaccine recombinantDavid Girvin Other [facility]10-01-2020influenza virus vaccine, unspecified formulationPaRibbit [facility]10-01-2020pneumococcal conjugate vaccine, 13 valentPatrick ACOSTA [facility]10-01-2020influenza, seasonal, injectableDavid Girvin Other [facility]10-01-2020 pneumococcal polysaccharide vaccine, 23 valentDavid Girvin Other [facility]10-07-2019influenza virus vaccine, unspecified formulationPatricSynercon Technologies [facility]10-01-2019influenza virus vaccine, unspecified formulationPaRibbit [facility]10-01-2018influenza virus vaccine, unspecified formulationPaRibbit [facility]10-01-2018influenza, seasonal, injectableDavid Girvin Other [facility]07-15-2018tetanus toxoid, adsorbedDavid Girvin Other [facility]10-30-2017influenza virus vaccine, unspecified formulationPaRibbit [facility]10-30-2017pneumococcal polysaccharide vaccine, 23 valentDavid Girvin Other [facility]10-02-2017influenza virus vaccine, unspecified formulationPaRibbit [facility]10-02-2017influenza, seasonal, injectableDavid Girvin Other [facility]10-19-2016influenza virus vaccine, unspecified formulationPaRibbit [facility]10-07-2015influenza virus vaccine, unspecified formulationPaRibbit [facility]10-20-2009influenza, wholePatricSynercon Technologies [facility]NEGATED: Highlighted row has not occurred!01-52-7132UALG-CoV-2 mRNA (tozinameran 5y-11y) vaccinePatricSynercon Technologies [facility] Payers DatePayer CategoryPayerPolicy [id number] 2025Medicare (Managed Care)[employer] MEDICARE [id number] [id number] [id number] [id number] [id number] 2.0.1.183532.3.57[id number] 2.0.1.712044.3.57[id number] 2.0.1.633980.3.57[id number] 2.160.1.666608.3.57[id number] 2.16840.1.999087.3.57[id number] 2.160.1.334153.3.57[id number] 2.16840.1.877189.3.57[id number] 2.840.1.129389.3.57[id number] 2.16.840.1.114726.3.57[id number] 2.16.840.1.079890.3.57[id number] 2.16.840.1.787842.3.57[id number] 2.16.840.1.057938.3.57[id number] 2.16.840.1.2[id number] 2.16.840.1.546627.3.579.2.531 [id number] 2.160.1.114228.3.579.2.531 Social History DateTypeDetailFacilityUnknown if ever smokedDenmark [employer] Other Start: 07-05-2024 End: 41-64-8405Pea Assigned At [facility] [employer] Other Start: 60-54-7819Mxdgyui smoking statusNever smoked tobacco (finding)[facility] start: 01-27-2023 End: 83-79-2656Makkiyp smoking statusEx-smoker (finding)[facility]Tobacco smoking statusNeverExecutive [facility] of [facility] Hospitaltart: 52-82-2118Oiu Assigned At [facility]htart: 04-14-2024 End: 53-37-1897KeqHdhp (finding)[facility] HospitalTobacco smoking status NHISTobacco smoking consumption unknownUT[facility] HealthcareStart: 1945 Sex assigned at birthNot on [facility] HealthcareStart: 78-82-2954WMPP Follow up SD[facility] Work Phone: History of tobacco useCurrent smokerUTAH STATE HOSPITAL Healthcare History of tobacco useCigarette SmokerUTAH STATE HOSPITAL HealthcareStart: 43-71-1328Qetqxfq use and exposureSmokeless tobacco non-userUTAH STATE HOSPITAL HealthcareStart: 07-05-2024 End: 90-08-8440Bzlaxoq of Social functionNOMA Healthcare Goals DatePatient GoalDesired Activity/State Functional Status XlgePqemwutcpwNfqfdaWuwnxpzu02-22-5543Yrpjyhqszz statusPatient at Baseline [facility] Work Phone: 1(130) 858-83911657819-34-3030Iydkgrsacr StatusN/AExec[facility]11-06-2023Functional StatusN/A[facility]07-18-2022Functional StatusN/A [facility] Mental Status IzqmTxhovskeuoPhuyzkIfqydqqu28-13-4960Vtxohqgct functionCognitive Status Patient at [facility] Work Phone: Clinical Notes 09-29-2020 to 10-05-2024 Note Date & WcaeGscuMhztoqec24-48-9590 Evaluation note* Diagnosis Onset Date Resolution Status Admit Date Abdominal pain acuteJuly 2024 10:28amDyspepsiaacuteJuly 2024 10:28amEarly satiety acuteJuly 2024 10:28amLoss of appetiteacuteJuly 2024 10:28amNausea & vomitingacuteJuly 2024 10:28amWeight lossacuteJuly 2024 10:28am Abnormal finding on MRI of brainchronicJuly 2024 9:37amCervical myelopathy chronicJuly 2024 9:37amMCI (mild cognitive impairment)chronicJuly 2024 9:37amVertigoresolvedJuly 2024 9:37am [facility] Work Phone: 1(728) 176-310307-15-2025 Evaluation note* Diagnosis Onset Date Resolution Status Admit Date Abdominal pain acuteJuly 2024 10:28amDyspepsiaacuteJuly 2024 10:28amEarly satiety acuteJuly 2024 10:28amLoss of appetiteacuteJuly 2024 10:28amNausea & vomitingacuteJuly 2024 10:28amWeight lossacuteJuly 2024 10:28am Abnormal finding on MRI of brainchronicJuly 2024 9:37amCervical myelopathy chronicJuly 2024 9:37amMCI (mild cognitive impairment)chronicJuly 2024 9:37amVertigoresolvedJuly 2024 9:37amDyspepsiaacuteAugust 2024 9:20amEarly satietyacuteAugust 2024 9:20amWeight lossacuteAugust 2024 9:20am [facility] Work Phone: 1(254) 337-826404-24-2025 History of Present illness Narrative* Génesis Hodges, [...] wrist extensors , wrist flexor , and service porter strength 5/5. LUE strength deltoid , biceps , triceps , wrist extensors , wrist flexor , and service porter strength 5/5. RLE strength iliopsoas, quadriceps, tibialis [...] reflex 2+. LLE knee reflex 2+. Coordination: Qdajmp-ka-drxb testing normal. Rapid alternating movements are normal. Gait: Steady. Review and summary of old records: Neuropsychological evaluation at [facility] on 07/07/2024: Current neuropsychologicalevaluation demonstrates distractibility that is expected to have interfered with optimal performance at times. Findings are therefore interpreted with caution. Data reveals largely restricted memory struggles. Overall presentation and history is most consistent with Mild Neurocognitive Disorder, exacerbated by anxiety and variable depression. I reviewed discharge paperwork from the patient's hospitalization at [facility]. The patient was hospitalized from 05/28/2024 to 05/29/2024. He initially presented to the [facility] Emergency Department with severe dizziness and was transferred to [facility]. MRI of the brain on 05/28/2024 identified noacute intracranial abnormality. MRI of the brain without contrast at [facility] on 05/28/2024: 6 mm signal abnormality identified [...] of the cervical spine on 11/21/2005 (per [facility] chart review): Status post ventral spinal [...] surveillance Vertigo The [facility] involving [...] NP [facility] documented in this encounterResearch Belton HospitalUjkscewemb17-97-1920 History of Present illness Narrative* Collin Iqbal, [...] No history of alcohol/substance abuse. Reformed smoker. [place] language Anguillan. Completed high school education. 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 He has [...] design >16th %ile. Motor/Speed of Processing: Right-handed. Liaison Planner strength 7th %ile with right-hand, 34th %ile [...] of this individual. Please contact me with Sponduu at [phone]. documented in this encounterResearch Belton HospitalFxvquvqpzu72-21-6657 History of Present illness Narrative* Craol Franco MD - 07/01/2024 9:15 AM EDT Assessment/Plan Cataract, OU: Observe for now without intervention. The patient was advised to contact us if any change or worsening of vision Blepharitis, posterior type OU - The patient exhibits inspissated meibomian glands. Warm compresses, lid massage and lid scrubs were recommended. documented in this encounterResearch Belton HospitalAvtmtljajn1947 History of Present illness Narrative* Collin Iqbal, [...] No history of alcohol/substance abuse. Reformed smoker. [place] language Anguillan. Completed high school education. 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 He [...] of this individual. Please contact me with Sponduu at [phone]. documented in this encounterResearch Belton HospitalTjgxifhxoe08-53-8041 History of Present illness Narrative* Génesis Hodges, ALEJANDRINA - 06/16/2024 1:40 PM EDT Images from the original note were not included. Chief Complaint Patient presents with Hospital Follow-up Memory Loss Vertigo Subjective Jb Vail is a 78 y.o. male. History of Present Illness The patient presents today for a post-hospital follow-up appointment. He is accompanied by his , Helga. He was hospitalized at [facility] ([facility]) from 05/28/2024 to 05/29/2024. The patient initially presented to The [facility] ([facility]) ED on 05/27/2024 due to severe, episodic dizziness and imbalance which had started approximately 1-2 days prior to admission. Onset was gradual. The patient states his dizziness was aggravated by standing up and could last minutes to hours. The patient's also states the patient was more confused than normal at the time. Per review of records, CTA of the head at [facility] revealed no acute intracranial abnormality, and CTA revealed 50% stenosis of the left common carotid artery at the left bulb with less than 50% stenosis of the right bulb. The patient was transferred to [facility] for further evaluation due to the MRI machine not working at [facility]. He was seen by Dr. Stewart (neurology) [...] wrist extensors , wrist flexor , and service porter strength 5/5. LUE strength deltoid , biceps , triceps , wrist extensors , wrist flexor , and service porter strength 5/5. RLE strength iliopsoas, quadriceps, tibialis [...] reflex 2+. LLE knee reflex 2+. Coordination: Jdrclx-ys-gmvb testing normal. Rapid alternating movements are normal. Gait: Steady. Review and summary of old records: I reviewed discharge paperwork from the patient's hospitalization at [facility]. The patient was hospitalized from 05/28/2024 to 05/29/2024. He initially presented to the [facility] Emergency Department with severe dizziness and was transferred to [facility]. MRI of the brain on 05/28/2024 identified noacute intracranial abnormality. MRI of the brain without contrast at [facility] on 05/28/2024: 6 mm signal abnormality identified [...] of the cervical spine on 11/21/2005 (per [facility] chart review): Status post ventral spinal [...] a 78-year-old male who presented to the [facility] ED and was then transferred to [facility] in early May 2024 for acute onset [...] NP [facility] documented in this [facility]03-26-2025 Instructions* Patient Instructions* Génesis Hodges NP - 06/16/2024 1:40 PM EDT - Referral for neuropsychological evaluation documented in this [facility]03-08-2025 [place] [address] Neurology Consult Note Signed Patient: Jb Vail MR#: [id number] : 1945 Acct:[id number] Age/Sex: 78 / M Adm Date: 5 Loc: Room: [address] [place] [address] Type: ADM INOo Attending Dr: Se Starkey DO Copies to: DO Keith Grimes DO Kristopher L Lindbloom, DO~ HPI Consult Date: 05/29/24 Bill Adjuster: Azael Stewart DO [facility] Medical History Abdominal pain History of measles, [...] mcg/actuation aerosol inhaler (ProAir HFA) 2 inh qynzphnqniM6PU 09/26/23 [History Confirmed 04/14/24] venlafaxine 75 mg [...] 62.5 mcg-vilant 25 mcg inhalat.powder (Trelegy Ellipta) skzooxiwag51/22/25 [History Confirmed 04/14/24] mecobalamin (vitamin B12) 1,000 [...] bit of palinopsia. He went to the [place] emergency department. CT head there was said to be without acute findings. CTA reportedly showed 50% stenosis of the left common carotid artery at the left bulb and less than 50% at the right bulb. They called me to discuss his case. They described as vertigo. I told him they need MRI and wanted them to get it there at [place]. They said they would not have MRI [...] DO 05/29/24 1133 Signed By: 05/29/24 1620 [facility]03-08-[address] [address] Discharge Summary Signed Patient: Jb Vail MR#: [id number] : 1945 Acct:[id number] Age/Sex: 78 / M Adm Date: 5 Loc: Room: [address] [place] [address]: Se Starkey DO Copies to: [...] a 78-year-old man who presented to the [facility] emergency room with severe dizziness. A few weeks ago he was diagnosed as having some concerns for dementia. He had been started on Aricept. In the [place] ER they tried a number of medicines and IV fluids but it did notimprove his dizziness. The patient had presented there on a Friday afternoon. The [place] ER tried to arrange an MRI of the brain but found that it was impossible to MRI his brain or [place] and that the MRI machine would not be rounding again until Friday, therefore they requested transfer over here to [facility]. Here at [facility] the MRI of the brain was without [...] Sodium 136, Potassium 4.8, Chloride 105, Carbon Xqxngsr97.0, Anion Gap 7.8, BUN 16, Creatinine 0.68 L, Est GFR (CKD- EPI) > 60.0, Glucose 143 H, Calcium9.3 Documented By: Se Starkey DO 1503 Signed By: 05/29/24 1508 [facility]03-08-2025 History and physical note Author Marcela Keller [facility] HospitalNote Date/TimeMarch 2024 6:11a[place] [address] Hospitalist H&P Signed Patient: Jb Vail MR#: [id number] : 1945 Acct:[id number] Age/Sex: 78 / M Adm Date: 5 Loc: 3T Room: [address] [place] [address] Type: ADM IN Attending Dr: Se Starkey DO Copies to: Keith Atkinson,DO Se Starkey, DO Marcela Keller MD~ HPI DATE OF EXAMINATION: 05/28/24 HISTORY OF PRESENT ILLNESS: 78 years old was transferred from [place] emergency room due to dizziness. Patient was recently diagnosed with dementia and started taking Aricept. Today he woke up from the nap and felt dizziness. [place] something pop in his head. Upon arrival [...] denies any dysuria urgency frequency. Evaluation at [facility] showed EKG normal sinus without any [...] Previous records in the computer system reviewed [facility] Medical History Abdominal pain History of measles, [...] mcg/actuation aerosol inhaler (ProAir HFA) 2 inh [id number] 09/26/23 [History Confirmed 04/14/24] venlafaxine 75 mg [...] 62.5 mcg-vilant 25 mcg inhalat.powder (Trelegy Ellipta) ukbmdazwja47/22/25 [History Confirmed 04/14/24] mecobalamin (vitamin B12) 1,000 [...] signed by Marcela Keller MD> 05/29/24 0711 [facility] Work Phone: 1(115) 799-261203-08-2025 [place] [address] Hospitalist H&P Signed Patient: Jb Vail MR#: [id number] : 1945 Acct:[id number] Age/Sex: 78 / M Adm Date: 5 Loc: Room: [address] [place] [address] Type: ADM IN Attending Dr: Se Starkey DO Copies to: Keith Atkinson,DO Se Starkey, DO Marcela Keller MD~ HPI DATE OF EXAMINATION: 05/28/24 HISTORY OF PRESENT ILLNESS: 78 years old was transferred from [place] emergency room due to dizziness. Patient was recently diagnosed with dementia and started taking Aricept. Today he woke up from the nap and felt dizziness. [place] something pop in his head. Upon arrival [...] denies any dysuria urgency frequency. Evaluation at [facility] showed EKG normal sinus without any [...] Previous records in the computer system reviewed [facility] Medical History Abdominal pain History of measles, [...] mcg/actuation aerosol inhaler (ProAir HFA) 2 inh [id number] 09/26/23 [History Confirmed 04/14/24] venlafaxine 75 mg [...] 62.5 mcg-vilant 25 mcg inhalat.powder (Trelegy Ellipta) kufjuiwljq48/22/25 [History Confirmed 04/14/24] mecobalamin (vitamin B12) 1,000 [...] Keller MD 05/28/242220 Signed By: 05/29/24 0711 [facility]02-03-2025 History of Present illness Narrative * [place] [...] , wrist extensors , wrist flexor , service porter strength 5/5. LUE Strength deltoid , biceps , triceps , wrist extensors , wrist flexor , service porter strength 5/5. RLE Strength illopsoas, quadriceps, tibialis [...] reflex 2+ . Ley's sign negative. Coordination: Vhvmpq-uj-ucqa testing and rapid alternating movements are normal [...] plan, and return instructions documented in this encounterResearch Belton HospitalJoeqnrtjiu43-89-3278 Evaluation note* Author Keith Atkinson [facility] HospitalAuthoredJanuary 2024 10:36amThe above note written by __Trini Deshpande____ acting as human recorder, note dictated by Dr. Esparza .I performed the above HPI, ROS, and Examination. I formulated and dictated the treatment plan and was present for entire encounter. Keith Atkinson D.O. [facility] Work Phone: 1(374) 844-889211-18-2024 NotePatient Education Urology Benign Prostatic Hyperplasia Benign [...] Follow these instructions at home: ??? Take cmuk-vkr-wobkgeu and prescription medicines only as told by [...] symptoms do not get (more content not included)...[place]10-29-2024 Evaluation note* Author Keith Atkinson [facility] HospitalAuthoredOctober 2023 9:22amThe above note written by ___Sarah Deshpande____ acting as human recorder, note dictated by Dr. Esparza .I performed the above HPI, ROS, and Examination. I formulated and dictated the treatment plan and was present for entire encounter. Keith Atkinson D.O. [facility] Work Phone: 1(558) 159-314609-25-2024 Evaluation note* Author Keith Atkinson [facility] HospitalAuthoredSeptember 2023 3:26pmThe above note written by ___Sarah Deshpande____ acting as human recorder, note dictated by Dr. Esparza .I performed the above HPI, ROS, and Examination. I formulated and dictated the treatment plan and was present for entire encounter. Keith Atkinson D.O. [facility] Work Phone: 1(885) 788-233007-23-2024 Evaluation note* Author Keith Atkinson [facility] HospitalAuthoredJuly 2023 9:02amThe above note written by ___Sarah Deshpande____ acting as human recorder, note dictated by Dr. Esparza .I performed the above HPI, ROS, and Examination. I formulated and dictated the treatment plan and was present for entire encounter. Keith Atkinson D.O. [facility] Work Phone: 1(263) 281-479601-16-2024 Evaluation note* Encounter Date Diagnosis Assessment Notes [...] with above medication daily as directed. Mar,Other senior care (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 therapy (ICD-10 - Z79.899) [facility] Other 12-18-2023 Evaluation note* Encounter Date Diagnosis Assessment Notes Treatment Notes Treatment Clinical Notes Feb, COPD (chronic obstructive pulmon alicia disease) (ICD-10 - J44.9) [facility] Other 09-28-2023 Hospital Discharge instructions Follow Up Care 12/19/2022 14:25:52 With:DAVE SELF, Sanjuanita Bills, URL Address: [facility] [address], [place] [address]- When:Within 1 Year(s) Comments:w/PSA [facility] 09-07-2023 Evaluation note* Encounter Date Diagnosis Assessment Notes Treatment Notes Treatment Clinical Notes Nov, Anxiety and depression (ICD-10 - F41.8) [facility] [employer] Other 07-11-2023 Evaluation note* Encounter Date Diagnosis [...] I did recommend that he see a furniture finisher, and he refuses. He states that he does not feel that he is that bad . 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 His voices that he does not use the Spiriva as directed. We discussed that there are newer medications that can be used to treat his COPD, but they should be given by a furniture finisher. He only uses the Spiriva as needed. [...] did recommend that he see a patient financial coordinator for evaluation to discuss what has been going on and determine what testing needs to be done. He refuses. He does not want the hassle of going to the patient financial coordinator. He states that when he hits the [...] with above medication daily as directed. Sep,Other director long term care (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 therapy (ICD-10 - Z79.899) [facility] Other 03-24-2023 Evaluation note* Encounter Date Diagnosis Assessment Notes Treatment Notes Treatment Clinical Notes May, Thrush (ICD-10 - B37.0) [facility] Other 02-27-2023 Evaluation note* Encounter Date Diagnosis [...] when he is seen in one month. 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 It could be his lungs that are [...] R63.5)His TSH is normal at 1.754. Mar,Other director long term care (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 therapy (ICD-10 - Z79.899) Mar,Elevated [...] one on his lip but it ishealing. [facility] Other 07-18-2022 Hospital Discharge instructions Patient Education [...] have oneof these risk factors: ?Being of -[place] descent. ?Having a family history of prostate [...] you: Are older than age 55. Are -[place]. Have a father, brother, or uncle who [...] 12/19/2017 Document Revised: 02/20/2018 Document Reviewed: 12/19/2017 [employer] Patient Education 2020 [employer]. Follow Up Care 07/25/2021 09:55:06 With:DAVE SELF, Sanjuanita Bills, ROSEL Address: [facility] [address], [place] [address] [phone] When:10/08/2022 [facility] 06-23-2022 Evaluation note* Encounter Date Diagnosis [...] that beyond that he should see a inspector filters. He should wear a wide brimmed hat, and wear a chapstick with SPF to protect this area from the sun. If he wants to see a inspector filters he should let me know. If he [...] a colonoscopy done and nothing was found. [facility] Other 03-14-2022 Evaluation note* Encounter Date Diagnosis Assessment Notes Treatment Notes Treatment Clinical Notes May, COPD (chronic obstructive pulmon alicia disease) (ICD-10 - J44.9) [facility] Other 02-16-2022 Evaluation note* Encounter Date Diagnosis Assessment Notes Treatment Notes Treatment Clinical Notes Apr, Constipation (ICD-10 - K59.00) RTO 4-6 WEEKS Apr,bdominal pain (ICD-10 - R10.9) Apr,Nausea (ICD-10 - R11.0) [facility] Other 01-12-2022 Evaluation note* Encounter Date Diagnosis [...] sun sensitivity. Mar,ther1:52 PM - 1:58 PM [facility] Other 01-04-2022 Evaluation note* Encounter Date Diagnosis Assessment Notes Treatment Notes Treatment Clinical Notes Mar, Fatigue (ICD-10 - R53.83) Mar,Exposure to COVID-19 virus (ICD-10 - Z20.828) [facility] Other 12-21-2021 Evaluation note* Encounter Date Diagnosis [...] Diego for evaluation next month (Mar 2021). [facility] 07-09-2021 NoteHNO ID: [id number] Author: Addis Villarreal MD Service: ? Author [...] in the past, he was seeing a [place] furniture finisher. He had PFTs, about 2 years. He [...] years before he quit. 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 He went out on [...] Take by mouth once (more content not included)...[facility]07-09-2021 NoteProcedure (PULMAV) JB VAIL ([id number]) 1945 M Date Time Provider Department 09/29/20 8:30 AM PULM LAB [facility] REJ PULMAV During your visit today, we recorded the following information about you: Referring Provider: SELF [200] Allergies As of Date: 09/29/2020 Noted Allergy Reaction PENICILLINS 05/27/2001 2 - Rash SULFA (SULFONAMIDE ANTIBIOTICS) 05/27/2001 2 - Rash Date Reviewed: 09/29/2020 Reviewed by: Barb Nguyen, SODA FOUNTAIN CLERK - Fully Assessed Reason for Visit: Spirometry [191] Visit Diagnosis:Dyspnea on exertion [R06.00] Order(s):SPIROMETRY WITH DILATOR IF OBSTRUCTED [9100141] Order #: [id number] Prescriptions as of 09/29/2020 - dicyclomine (BENTYL) [...] R25.9] Encounter Status:Closed by BARB NGUYEN on 09/29/20[facility] 09-29-2020 NoteHNO ID: [id number] Author: Barb Julio RT(R) Service: Radiology Author Type: Cigar Packing Examiner Type: Progress Notes Filed: 09/29/2020 8:07 AM [...] Barb Julio, RT(R) September 29, 2020 8:07 [facility] Author Azael Stewart [facility] HospitalNote Date/TimeMarch 2024 2:[place] [address] Neurology Consult Note Signed Patient: Jb Vail MR#: [id number] : 1945 Acct:[id number] Age/Sex: 78 / M Adm Date: 5 Loc: Room: [address] [place] [address] Type: ADM INOo Attending Dr: Se Starkey DO Copies to: DO Keith Grimes DO Kristopher L Lindbloom, DO~ HPI Consult Date: 05/29/24 Bill Adjuster: Azael Stewart DO [facility] Medical History Abdominal pain History of measles, [...] mcg/actuation aerosol inhaler (ProAir HFA) 2 inh billunnlnnR0UR 09/26/23 [History Confirmed 04/14/24] venlafaxine 75 mg [...] 62.5 mcg-vilant 25 mcg inhalat.powder (Trelegy Ellipta) lnoecrtxgf09/22/25 [History Confirmed 04/14/24] mecobalamin (vitamin B12) 1,000 [...] bit of palinopsia. He went to the [place] emergency department. CT head there was said to be without acute findings. CTA reportedly showed 50% stenosis of the left common carotid artery at the left bulb and less than 50% at the right bulb. They called me to discuss his case. They described as vertigo. I told him they need MRI and wanted them to get it there at [place]. They said they would not have MRI [...] signed by Azael Stewart DO> 05/29/24 1620 [facility] Work Phone: Discharge summary Author Se Starkey [facility] HospitalNote Date/TimeMarch 2024 2:08pm[place] [address] Discharge Summary Signed Patient: Jb Vail MR#: [id number] : 1945 Acct:[id number] Age/Sex: 78 / M Adm Date: 5 Loc: 3T Room: 4D2446-[address]: Se Starkey DO Copies to: [...] a 78-year-old man who presented to the [facility] emergency room with severe dizziness. A few weeks ago he was diagnosed as having some concerns for dementia. He had been started on Aricept. In the [place] ER they tried a number of medicines and IV fluids but it did notimprove his dizziness. The patient had presented there on a Friday afternoon. The [place] ER tried to arrange an MRI of the brain but found that it was impossible to MRI his brain or [place] and that the MRI machine would not be rounding again until Friday, therefore they requested transfer [facility]. [facility] the MRI of the brain was without [...] Sodium 136, Potassium 4.8, Chloride 105, Carbon Btkzxtu71.0, Anion Gap 7.8, BUN 16, Creatinine 0.68 L, Est GFR (CKD- EPI) > 60.0, Glucose 143 H, Calcium9.3 Documented By: Se Starkey, 1503 Signed By: <Electronically signed by Se Starkey, DO> 05/29/24 1508 [facility] Work Phone: Evaluation + Plan note Future Appointments Appointment Date:10/11/2022 08:00:00 AM Scheduled Provider:Sanjuanita ACOSTA MD Location:[facility] Appointment Type:URO Office Visit Diagnostic Tests Pending * PSA Total 10/08/21 [facility] evaluation + Plan note Future Appointments Appointment Date:01/30/2024 08:30:00 AM Scheduled Provider:Sanjuanita ACOSTA MD Location:[facility] Appointment Type:URO Office Visit Diagnostic Tests Pending * PSA Total 01/27/23 [facility] evaluation + Plan note Future Appointments Appointment Date:01/30/2024 08:30:00 AM Scheduled Provider:Sanjuanita ACOSTA MD Location:[facility] Appointment Type:URO Office Visit [facility] evaluation + Plan note Future Appointments Appointment Date:02/05/2024 11:40:00 AM Scheduled Provider:TL CARMONA PA-C Location:[facility] Appointment Type:URO Office Visit [facility] evaluation noteNo navigaya Other Evaluation note* Diagnosis Onset Date Resolution Status Abdominal pain acuteAbscessacuteAnemiaacuteBPH (benign prostatic hyperplasia)acuteChest pain acuteCold soreacuteConstipationacuteCOPD (chronic obstructive pulmonary disease) acuteHyperglycemiaacuteHyperlipidemiaacuteWeight lossacute [facility] Work Phone: Evaluation note* Diagnosis Mild cognitive [...] & vomitingacuteJuly 2024 10:28amWeight lossacuteJuly 2024 10:28am [facility] Work Phone: History general Narrative - Reported* Type Description Date Medical History History of Chicken Pox/Measles/M umps Medical Historyfollows with Dr. Acosta for his prostate and kidneysMedical HistoryhyperlipidemiaMedical HistoryBPHMedical HistoryinsomniaMedical History acid refluxMedical HistoryanxietyMedical HistoryCOPDSurgical HistoryNeck and Tlap1131Iwmrfcrv PwkctjdBjvkxq3227Ncpymjpq HistorytonsillectomySurgical History adenoidectomySurgical HistoryTRUS with Biopsy Dr. 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 PressleyUgtiq5-17-87Xqutagsa HistoryColonoscopy, EGD, Dr. Puente 08/22/21Hospitalization Historysee above [facility] Other History general Narrative - Reported* Type Description Date Medical History History of Chicken Pox/Measles/M umps Medical Historyfollows with Dr. Acosta for his prostate and kidneysMedical HistoryhyperlipidemiaMedical HistoryBPHMedical HistoryinsomniaMedical History acid refluxMedical HistoryanxietyMedical HistoryCOPDSurgical HistoryNeck and Fgac4644Adrwqyqa FlzfsxdJgnnbo4112Qatlgrqo HistorytonsillectomySurgical History adenoidectomySurgical HistoryTRUS with Biopsy Dr. 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 PressleyOfitl2-48-26Ogmmtdxyzftklnf Historysee above [facility] Other Hospital course Narrative No data available for this section [facility] Discharge instructions No data available for this section [facility] Discharge instructions Additional Instructions DISCHARGE INSTRUCTIONS [...] NOT operate machinery such as power tools, [employer] mowers, snow blowers, sewing machines, etc. for [...] Follow up with PCP. - Office number [phone].[facility] Work Phone: Progress note No data available for this section [facility] reason for referral (narrative)No reason for referral information availableOhio State Health System Work Phone: Reason for visit Narrative* Consultation (Routine) - ClosedSpecialtyDiagnoses / ProceduresReferred By ContactReferred To Contact Neuropsychology Diagnoses Cognitive impairment Procedures NC OFFICE/OUTPATIENT [facility] 60 MINUTES Génesis Hodges NP [address] [place] [address] Phone: tel: Collin Iqbal, PhD [address] [address] Phone: tel: fax: Referral IDStatusReasonStart DateExpiration DateVisits RequestedVisits [id number] Required / [facility] Healthcare Summary Purpose Family History Relationship [...] Diagnosis 1 Constipation (K59.00 ) Referral Organization [facility] Family Medicin e [place] Referring Provider First Name Keith Referring Provider Last Name China Referring Provider Specialty Family Prac tomy Referred Organization [facility] Gastroenterolo gy Referred Provider Keith Puente Referred Address [address] [address] ,[place], [place],[address] Referred Provider Specialty Gastroentero logy Referral Priority [...] section and content) DATE CREATED AUTHOR 09/30/2020 [facility] DATE CREATED AUTHOR AUTHOR'S ORGANIZ ATION 05/07/2021 [facility] DATE CREATED AUTHOR AUTHOR'S ORGANIZ ATION 04/16/2022 [facility] DATE CREATED AUTHOR AUTHOR'S ORGANIZ ATION 02/16/2024 [place] DATE CREATED AUTHOR AUTHOR'S ORGANIZ ATION 07/16/2024 [facility] DATE CREATED AUTHOR AUTHOR'S ORGANIZ ATION 11/04/2024 [facility] REASON FOR VISIT (unrecogniz ed [...] S tart: December 18, 2023 Augie Mari [facility] , DOAttending ProviderActiveStart: December 18, 2023 Team [...] [place] MD [address] [place] [address] PCP - GeneralFamily Medicine04/26/24Team MemberRelationshipSpecialtyStart DateEnd Date Keith [place] MD [address] [place] [address] PCP - GeneralFamily Medicine04/26/24Team MemberRelationshipSpecialtyStart DateEnd Date Keith [place] MD [address] [place] [address] PCP - GeneralFamily Medicine04/26/24Team MemberRelationshipSpecialtyStart DateEnd Date Keith [place] MD [address] [place] [address] PCP - GeneralFamily Medicine04/26/24 Génesis Hodges NP [address] [place] [address] Nurse PractitionerNeurology06/16/24 Casper Aguirre DO [address] [place] [address] Referring PhysicianNeurology06/16/24Team MemberRelationshipSpecialtyStart DateEnd Date Keith [place] MD [address] [place] [address] PCP - GeneralFamily Medicine04/26/24 Génesis Hodges NP [address] [place] [address] Nurse PractitionerNeurology06/16/24 Casper Aguirre DO [address] [place] [address] Referring PhysicianNeurology06/16/24Team MemberRelationshipSpecialtyStart DateEnd Date Keith [place] MD [address] [place] [address] PCP - GeneralLucas County Health Centerly Medicine04/26/24 Génesis Hodges NP [address] [place] [address] Nurse PractitionerNeurology06/16/24 Casper Aguirre DO [address] [place] [address] Referring PhysicianNeurology06/16/24Team MemberRelationshipSpecialtyStart DateEnd Date Keith [place] MD [address] [place] [address] PCP - GeneralFamily Medicine04/26/24 Génesis Hodges NP [address] [place] [address] Nurse PractitionerNeurology06/16/24 Casper Aguirre DO [address] [place] [address] Referring PhysicianNeurology06/16/24Team MemberRelationshipSpecialtyStart DateEnd Date Keith [place] MD [address] [place] [address] PCP - GeneralFamily Medicine04/26/24 Génesis Hodges NP [address] [place] [address] Nurse PractitionerNeurology06/16/24 Casper Aguirre DO [address] [place] [address] Referring PhysicianNeurology06/16/24Team MemberRelationshipSpecialtyStart DateEnd Date Keith [place] MD [address] [place] [address] [place] [address] PCP - GeneralFamily Medicine04/26/24 Génesis Hodges NP [address] [place] [address] Nurse PractitionerNeurology06/16/24 Casper Aguirre DO [address] [place] [address] Referring PhysicianNeurology06/16/24Team MemberRelationshipSpecialtyStart DateEnd Date Keith [place] MD [address] [place] [address] [place] [address] PCP - GeneralFamily Medicine04/26/24 Génesis Hodges NP [address] [place] [address] Nurse PractitionerNeurology06/16/24 Casper Aguirre DO [address] [place] [address] Referring PhysicianNeurology06/16/24Team MemberRelationshipSpecialtyStart DateEnd Date Keith [place] MD [facility] [address] [place] [address] PCP - GeneralFamily Medicine04/26/24 Génesis Hodges NP [address] [place] [address] Nurse PractitionerNeurology06/16/24 Casper Aguirre DO [address] [place] [address] Referring PhysicianNeurology06/16/24 Team Status: Inactive Member Role [...] BE BASED ON THE PRIMARY CLINICAL RECORDS. [facility]. provides no warranty or guarantee of the accuracy or completeness of information in this document.
--- OUTSIDE RECORDS SUMMARY | 2025-01-27 18:39 | XMS_ITS | Clinical Summary ---
Author Organization [facility] Address [address] [place] [address] Care Team Providers Care Grain Trimmer Name Role Phone Benito Moreau MD Primary Care Provider [phone] Génesis Hodges SUPERVISOR BLOOD Unavailable Unavailable Tremayne Aguirre DO Unavailable [phone] Allergies Active AllergyReactionsCriticalityNoted WtilNgbchlbwZppvfjkpqzy13/03/2025Sulfa Bemfqenqywc93/03/2025 Medications MedicationSigDispense QuantityRefillsLast FilledStart DateEnd DateStatus simvastatin [...] RecordedSex Assigned at BirthNot on file Legal XsgZewf0707/22/2022 8:32 PM EDTGender IdentityNot on fileSexual Orientation Not on file Last Filed Vital Signs Vital SignReadingTime TakenCommentsBlood Rfydqvjt976/7204 8:33 AM EDT Pbasg241007/15/2024 8:33 AM EDTTemperature--Respiratory Rate--Oxygen Sedqmoinpl94% 04/26/2024 8:57 AM ESTInhaled Oxygen Concentration--Mnmame09.2 kg (157 lb) 07/15/2024 8:33 AM QQVZzucxs282.8 cm (5' 10 )07/15/2024 8:33 AM EDTBody Mass Index22.5304 8:33 AM EDT Plan of Treatment Health MaintenanceDue DateLast DoneCommentsCOVID-19 Vaccine ( season) , 01/20/2023, 06/29/2021, Additional history existsInfluenza Vaccine (#1), 01/20/2023, 12/06/2021, Additional history existsPneumococcal Vaccine: 65+ DrrlgOxbiwuujs64/06/2021, 12/23/2019, 01/20/2017 Insurance Care Teams Team MemberRelationshipSpecialtyStart DateEnd Date Benito Moreau MD [address] [place] [address] PCP - GeneralMercyone Oelwein Medical Centerly Medicine04/26/24 Génesis Hodges NP [address] [place] [address] Nurse PractitionerNeurology06/16/24 Tremayne Aguirre DO [address] [place] [address] Referring PhysicianNeurology06/16/24
--- OUTSIDE RECORDS SUMMARY | 2025-01-27 18:40 | XMS_ITS | Patient Health Record ---
Author Organization [facility] [place] Address [address] [place] [address] Care Team Providers Care Bindery Worker Name Role Phone Keith Moreau DO Primary Care Provider Unavailab Akosua Jenkins Unavailable [phone] Augie Avalos Unavailable [phone] KEITH VELÁSQUEZ Unavailable [phone] AKOSUA CHAPMAN Unavailable [phone] Allergies Allergen (clinical drug ingredient) Drug/Non Drug [...] Administered Comirnaty Pfizer Syringe Pre-Filled 30 mcg/0.3 xVEremupe83/10/2024Administered Flu, Fluad (77908) 65 yrs + High Dose Seasonal ()Osfxuxb4801/01/2024 AdministeredFlu, Fluad (71525) 65 yrs+, single-dose syringe (8161-5404)Unknown 01/20/2023dministeredPneumococcal (Pneumovax 23)Eroeriv4812/27/2020dministered Pneumococcal (Prevnar 13)Rekrqqf7812/23/2019AdministeredZOSTER (SHINGLES) VACCINE (HZV)Blwaqib5806/14/2020dministered Social History Tobacco Use: Social History Observation Description Date Details (start date - stop date) Former Smoker NA - NA Tobacco Control (Standard) Question Answer Notes Tobacco use: Former smoker How long has it been since you last smoked?Greater than 10 yearsAdditional Findings: Tobacco nfi-jmcuMb-dowo heavy cigarette smoker (40+/day) Problems Problem Type SNOMED Code ICD Code Onset Dates Problem Status W/U Status Risk Notes Problem Centrilobular emphysema (75567198) Centri lobular emphysema (J43.2) ActiveconfirmedProblemUncomplicated moderate persistent asthma (637788588) Moderate persistent asthma, uncomplicated (J45.40)ActiveconfirmedProblemLong- term current use of inhaled steroid (906011406)group home (current) use of inhaled steroids (Z79.51)ActiveconfirmedProblemEx-tobacco user (finding) (575609814)History of tobacco abuse (Z87.891)ActiveconfirmedProblemExposure to Agent Martin (825872825)Agent orange exposure (Z77.098)Activeconfirmed Vital Signs Heart Rate 72 /min 08/10/2024 Hxbhqezjhzk10.1 degrees Qwnfhwmzkp34/20/2025Respiratory Rate18 /min08/10/2024 Ykbhwrbg87 %08/10/2024lood pressure gxnpdebmq12 mm Hg08/10/20241059Obwcjx56 in 08/10/2024lood pressure hufguviv803 mm Hg08/10/20248790Lkavve614.2 lbs08/10/2024MI 22.12 kg/m208/10/2024 Encounters Encounter Location Date Provider Diagnosis Pulmonary Medicine [place] [address] [place] [address] 04/13/2024 [facility] Medicine [address] [place] [address]/ [facility] [place] [address] 08/10/2024[facility] [place] [address]/[facility] DERMAS[facility] [address] [place] [address]/09/2024KIMBERLY BUSHROWOther skin changes due to chronic exposure to nonionizing radiation L57.8 ; Tinea pedis B35.3 ; Hemangioma of skin and subcutaneous tissue D18.01 ; Other seborrheic keratosis L82.1 ; Actinic keratosis L57.0 and Neoplasm of uncertain behavior of skin D48.5 Pulmonary Medicine [address] [place] [address]/ [facility] WomensaModerate persistent asthma, uncomplicated J45.40 ; Centrilobular emphysema J43.2 ; Agent orange exposure Z77.098 ; History of tobacco abuse Z87.891 and 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 Z79.51Pulmonary Medicine [address] [place] [address]/[facility] CampusModerate persistent asthma, uncomplicated J45.40 ; Centrilobular emphysema J43.2 ; Agent orange exposure Z77.098 ; History of tobacco abuse Z87.891 and 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 Z79.51[facility] [address] [place] [address]/[facility] BUSHROWActinic keratosis L57.0 [facility] [address] [place] [address]/05/2024 KEITH KOUBAVenous insufficiency (chronic) (peripheral) I87.2 and Squamous cell carcinoma of skin of left lowerlimb, including hip C44.729[facility] [address] [place] [address]/Kimberly BushrowOther skin changes due to chronic exposure to nonionizing radiation L57.8 ; Burn of second degree of forehead and cheek, initial encounter T20.26XA ; Encounter for follow-up examination after completed treatment for malignant neoplasm Z08 and Personal history of other malignant neoplasm of skin Z85.828[facility] [address] [place] [address]/12/2025Akosua Chapman Assessments Encounter Date Diagnosis (ICD Code) Assessment Notes Treatment Notes Treatment Clinical Notes Section Notes 05/11/2024 Moderate persistent asthma, unco mplicated (ICD-10 - J45.40) Prior treatment: Breztri > [...] seem to exacerbate his symptoms even more. 05/11/2024entrilobular emphysema (ICD-10 - J43.2) Asthma-COPD overlap. Normal AAT genotype MM. Rx sent for Breztri. 12/28/2024Other skin changes due to chronic exposure [...] radiation (ICD-10 - L57.8)5Actinic keratosis (ICD-10 - L57.0)01/24/2025Venous insufficiency (chronic) (peripheral) (ICD-10 - I87.2)01/24/2025Squamous cell carcinoma of skin of left lower limb, including hip (ICD-10 - C44.729)09/08/2024 Burn of second degree of forehead and cheek, initial encounter (ICD-10 - T20.26XA)5Centrilobular emphysema (ICD-10 - J43.2) Asthma-COPD overlap. Normal AAT genotype MM. 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 No evidence of any restrictive lung disease or suggestion of fibrosis based on PFT findings (normal TLC and DLCO). 05/11/2024History of tobacco abuse (ICD-10 - Z87.891) ~42 years x 3ppd = 126 pack-years. Quit 2007. This patient does not meet current LDCT criteria (e.g. age, time from cessation, # pack-years). 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 No evidence of any restrictive lung disease [...] Details Provider Name:AKOSUA MORSE, 02/02/2025 01:15:00 PM, [address] [place] [address], [phone], Provider Name:AKOSUA MORSE, 03/01/2025 09:00:00 AM, [address] [place] [address], [phone], Provider Name:AKOSUA MORSE, 03/01/2025 09:15:00 AM, [address] [place] [address], [phone], Provider Name:AKOSUA MORSE, 03/15/2025 09:00:00 AM, [address] [place] [address], [address], Provider Name:AKOSUA MORSE, 06/29/2025 01:00:00 PM, [address] [place] [address], [phone], Insurance Providers Payer Name Payer Address Payer Phone Subscriber Number Group Number Insured Name Patient Relationship to Insured Coverage Start Date Coverage End Date [facility] [employer] [address] [address] [place] [address] [id number] Cash Ricardo - patient is the insured [...] tobacco abuse Z87.891 Surgical History Surgery Date(Month/Year) Elbow Surgery EGD/ColonoscopyNeck SurgeryBack Surgerytonsillectomy and adenoidectomy
--- OUTSIDE RECORDS SUMMARY | 2025-01-27 18:41 | XMS_ITS | Clinical Summary ---
Author Organization [facility] Address [address] [facility] [place] [address] Phone Care Team Providers Care Arcade Attendant Name Role Phone Unavailable Primary Care Provider Unavailabl e Social History Tobacco UseTypesPacks/DayYears UsedDateSmoking Tobacco: Never AssessedSex and Gender InformationValueDate RecordedSex Assigned at BirthNot on fileLegal Sex Male02/15/2022 9:07 PM ESTGender IdentityNot on fileSexual OrientationNot on file Plan of Treatment Not on file
--- OUTSIDE RECORDS SUMMARY | 2025-01-27 18:42 | XMS_ITS | Clinical Summary ---
Author Organization [facility] Address [address] [facility] [facility], [address] [place] [address] Care Team Providers Care A And P Technician Name Role Phone Unavailable Primary Care Provider Unavailabl e Social History Tobacco UseTypesPacks/DayYears UsedDateSmoking Tobacco: Never AssessedSex and Gender InformationValueDate RecordedSex Assigned at BirthNot on fileLegal Sex Male05/03/2012 3:48 PM ESTGender IdentityNot on fileSexual OrientationNot on file Plan of Treatment DateTypeDepartmentCare Team (Latest Contact Info)Rwztxluteet44/19/2026 10:00 AM EDTOffice Visit [facility] Pulmonology [address] [place] [address] [address] [place] [address] [place] [address] [place] [address] [address] [place] [address] IONE PT - COPD/ASTHMA
== END 2025-01-27 18:51 | disposition home or self-care (01) ==
PROVIDERS: Emergency Provider Emergency Medicine; PCP Family Medicine
DX: L76.21 Postprocedural hemorrhage of skin and subcutaneous tissue following a dermatologic procedure (principal)
CPT/HCPCS: 99283

== ENCOUNTER 2025-02-04 11:36 | Outpatient (OUT) | payer MEDICARE, SELFPAY ==
--- OUTSIDE RECORDS SUMMARY | 2024-05-05 04:45 | XMS_ITS ---
Author Organization [facility] in [place] Address [address] [place] [address] Care Team Providers Care Pharmacist Helper Name Role Phone Benito Moreau DO Primary Care Provider Unavailab Akosua Jenkins [phone] REASON FOR VISIT bm 6mo fbse, schedule PDT Encounters Encounter Location Date Provider Diagnosis [facility] [address] [place] [phone] 05/05/2024 Akosua Carreno Plan Of Treatment Next Appt Details Provider Name:AKOSUA MORSE, 03/01/2025 09:00:00 AM, [address] [place] [address], [phone], Provider Name:AKOSUAABDULAZIZ MORSE, 03/01/2025 09:15:00 AM, [address] [place] [address], [phone], Provider Name:AKOSUA MORSE, 03/15/2025 09:00:00 AM, [address] [place] [address], [phone], Provider Name:AKOSUA MORSE, 06/29/2025 01:00:00 PM, [address] [place] [address], [phone], Progress Notes * Hesham RICARDO DDOB: [birth year] (79 yo M)Acc No.[id number]:05/05/2024 UNLOCKED PROGRESS NOTE Established Patient: Hesham WILLARD :?MARK ChakrabortyOB:1945???Age: 78 Y???Sex:MaleDate:05/05/2024Phone:[phone]:[facility] [place], [id number]:Benito Moreau, DO Subjective: * Chief Complaints: * 1 . bm 6mo fbse, schedule PDT. * Medical History: Objective: * Vitals: Assessment: Plan: * Treatment: * * Electronic signature of Akosua Carreno PA-C on 02/04/2025 at 11:46 AM EST Sign off status: PendingVisit Status:?LATE CANC (Late Cancel) * Provider: Saskia Carreno PA-C Date: 0 05/05/2024 Generated for Printing/Faxing/eTransmitting on:?02/04/2025 11:46 AM EST
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
--- OUTSIDE RECORDS SUMMARY | 2024-09-28 08:15 | XMS_ITS ---
Author Organization [facility] in [place] Address [address] [place] [address] Care Team Providers Care Financial Specialist Name Role Phone Benito Moreau DO Primary Care Provider Unavailab Akosua Jenkins [phone] REASON FOR VISIT rm bm 6mo fbse, schedule PDT Encounters Encounter Location Date Provider Diagnosis [facility] [address] [place] [address] 09/28/2024 Akosua Carreno Plan Of Treatment Next Appt Details Provider Name:AKOSUA MORSE, 03/01/2025 09:00:00 AM, [address] [place] [address], [address], Provider Name:AKOSUA MORSE, 03/01/2025 09:15:00 AM, [address] [place] [address], [address], Provider Name:AKOSUA MORSE, 03/15/2025 09:00:00 AM, [address] [place] [address], [address], Provider Name:AKOSUA MORSE, 06/29/2025 01:00:00 PM, [address] [place] [address], [address], Progress Notes * Hesham RICARDO DDOB: [birth year] (79 yo M)Acc No.[id number]:09/28/2024 UNLOCKED PROGRESS NOTE Established Patient: Hesham WILLARD :?MARK ChakrabortyOB:1945???Age: 79 Y???Sex:MaleDate:09/28/2024Phone:[phone]:Kayli [facility], [id number]:Benito Moreau, DO Subjective: * Chief Complaints: * 1 . rm bm 6mo fbse, schedule PDT. * Medical History: Objective: * Vitals: Assessment: Plan: * Treatment: * * Electronic signature of Akosua Carreno PA-C on 02/04/2025 at 11:48 AM EST Sign off status: PendingVisit Status:?CANC (Cancelled) * Provider: Saskia Carreno PA-C Date: 0 09/28/2024 Generated for Printing/Faxing/eTransmitting on:?02/04/2025 11:48 AM EST
--- OUTSIDE RECORDS SUMMARY | 2024-12-28 06:00 | XMS_ITS ---
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 L57.8 ; Tinea pedis B35.3 ; Hemangioma of skin and subcutaneous tissue D18.01 ; Other seborrheic keratosis L82.1 ; Actinic keratosis L57.0 and Neoplasm of uncertain behavior of skin D48.5 Assessments Encounter Date Diagnosis (ICD Code) Assessment Notes Treatment Notes Treatment Clinical Notes Section Notes 12/28/2024 Other skin changes d ue to chronic exposure to nonionizing radiation (ICD-10 - L57.8) 12/28/2024Tinea pedis (ICD-10 - B35.3)12/28/2024Hemangioma of skin and subcutaneous tissue (ICD-10 - D18.01)12/28/2024Other seborrheic keratosis (ICD- 10 - L82.1)5Actinic keratosis (ICD-10 - L57.0)12/28/2024Neoplasm of uncertain behavior of skin (ICD-10 - D48.5) Plan Of Treatment Next Appt Details Provider Name:AKOSUA MORSE, 03/01/2025 09:00:00 AM, [address] [place] [address], [address], Provider Name:AKOSUA MORSE, 03/01/2025 09:15:00 AM, [address] [place] [address], [address], Provider Name:AKOSUA MORSE, 03/15/2025 09:00:00 AM, [address] [place] [address], [address], Provider Name:AKOSUA MORSE, 06/29/2025 01:00:00 PM, [address] [place] [address], [address], Progress Notes * Hesham RICARDO DDOB: [birth year] (79 yo M)Acc No.[id number]:12/28/2024 UNLOCKED PROGRESS NOTE Established Patient: Osmani Hesham FOX :?AKOSUA Justyn CHACHA CHAPMAN-CDOB:1945???Age: 79 Y???Sex:MaleDate:12/28/2024Phone:[phone]:[address] [place] [address]Pcp:Anila Saeed In:10:59 AM ESTCheck Out: 11:45 AM EST Subjective: * Chief Complaints: * 1 . rm rm bm 6mo fbse, schedule PDT. * Medical History: Objective: * Vitals: Assessment: * Assessment: 1.?Other skin changes due to chronic exposure to nonionizing radiation - L57.8?? 2.?Tinea pedis - B35.3???3.?Hemangioma of skin and subcutaneous tissue - D18.01???4.?Other seborrheic keratosis - L82.1???5.?Actinic keratosis - L57.0???6.?Neoplasm of uncertain behavior of skin - D48.5??? Plan: * Treatment: * Procedure Codes: 1 7004 DESTROY LESIONS, 15 OR MORE, 17144 PUNCH BIOPSY OF SKIN, SINGLE LESION, TthNo: 59, Srfc: , Modifiers: 59 , 47905 PUNCH BIOPSY OF SKIN, EACH ADDL LESION, TthNo: 59, Srfc: , Modifiers: 59 , 31193 TANGENTIAL BIOPSY OF SKIN ADDT, TthNo: 59, Srfc: , Units: 3.00 , Modifiers: 59 , 32401 BIOPSY OF EXTERNAL EAR, TthNo: 59~LT, Srfc: , Modifiers: 59 , LT * * Electronic signature of AKOSUA CHAPMAN PA-C, [id number] on 02/04/2025 at 11:46 AM ESTSign off status: PendingVisit Status:?CHK (Check Out) * Provider: Saskia CHAPMAN PA-C Date: Generated for Printing/Faxing/eTransmitting on:?02/04/2025 11:46 AM EST
--- OUTSIDE RECORDS SUMMARY | 2025-01-05 05:30 | XMS_ITS ---
Author Organization The [facility] in [place] Address [address] [place] [address] Care Team Providers Care Certified Tower Climber Name Role Phone Benito Moreau DO Primary Care Provider Unavailab AKOSUA Solis Unavailable [phone] REASON FOR VISIT bm PDT 1 Encounters Encounter Location Date Provider Diagnosis [facility] [address] [place] [address] 01/05/2025 AKOSUA CHAPMAN Plan Of Treatment Next Appt Details Provider Name:AKOSUA MORSE, 03/01/2025 09:00:00 AM, [address] [place] [address], [address], Provider Name:AKOSUA MORSE, 03/01/2025 09:15:00 AM, [address] [place] [address], [address], Provider Name:AKOSUA MORSE, 03/15/2025 09:00:00 AM, [address] [place] [address], [address], Provider Name:AKOSUA MORSE, 06/29/2025 01:00:00 PM, [address] [place] [address], [address], Progress Notes * Hesham RICARDO DDOB: [birth year] (79 yo M)Acc No.[id number]:01/05/2025 UNLOCKED PROGRESS NOTE Progress Note Patient: Hesham WILLARD :?MARK FRIASOB:1945???Age: 79 Y???Sex:MaleDate:01/05/2025Phone:[phone]:[address], [id number]:Benito Moreau, Subjective: * Chief Complaints: * 1 . bm PDT 1. * Medical History: Objective: * Vitals: Assessment: Plan: * Treatment: * * Electronic signature of AKOSUA CHAPMAN PA-C, [id number] on 02/04/2025 at 11:47 AM ESTSign off status: PendingVisit Status:?CANC (Cancelled) * Provider: Saskia CHAPMAN PA-C Date: 1 Generated for Printing/Faxing/eTransmitting on:?02/04/2025 11:47 AM EST
--- OUTSIDE RECORDS SUMMARY | 2025-01-19 05:15 | XMS_ITS ---
Author Organization The [facility] in [place] Address [address] [place] [address] Care Team Providers Care Lumber Tailer Name Role Phone Benito Moreau DO Primary Care Provider Unavailab AOKSUA Solis Unavailable [phone] REASON FOR VISIT bm PDT 1, re-eval A: epigastric skin Encounters Encounter Location Date Provider Diagnosis [facility] [address] [place] [address] 01/19/2025 AKOSUA ADELA Actinic keratosis L57.0 Assessments Encounter Date Diagnosis (ICD Code) Assessment Notes Treatment Notes Treatment Clinical Notes Section Notes 01/19/2025 Actinic keratosis (ICD-10 - L57. 0) Plan Of Treatment Next Appt Details Provider Name:AKOSUA CHAN OW, 03/01/2025 09:00:00 AM, [address] [place] [address], [address], Provider Name:AKOSUA M DUSTIN HROW, 03/01/2025 09:15:00 AM, [address] [place] [address], [address], Provider Name:AKOSUA UMAÑAOW, 03/15/2025 09:00:00 AM, [address] [place] [address], [address], Provider Name:AKOSUA Justyn DUSTIN UMAÑAOW, 06/29/2025 01:00:00 PM, [address] [place] [address], [address], Progress Notes * Hesham RICARDO DDOB: [birth year] (79 yo M)Acc No.[id number]:01/19/2025 UNLOCKED PROGRESS NOTE Progress Note Patient: Hesham WILLARD :?CUATE FRIASCDOB:1945???Age: 79 Y???Sex:MaleDate:01/19/2025Phone:[phone]:[address] [place], [place]Pcp:Anila Saeed In:09:49 AM ESTCheck Out: 11:18 AM EST Subjective: * Chief Complaints: * 1 . bm PDT 1, re-eval A: epigastric skin. * Medical History: Objective: * Vitals: Assessment: * Assessment: 1.?Actinic keratosis - L57.0??? Plan: * Treatment: * Procedure Codes: 9 6574 DBRDMT PRMLG LES W/PDT, J7308 AMINOLEVULINIC ACID HCL TOP 20% 1 U, TthNo: JZ, Srfc: , Modifiers: JZ * * Electronic signature of AKOSUA CHAPMAN PA-C, [id number] on 02/04/2025 at 11:46 AM ESTSign off status: PendingVisit Status:?CHK (Check Out) * Provider: Saskia CHAPMAN PA-C Date: Generated for Printing/Faxing/eTransmitting on:?02/04/2025 11:46 AM EST
--- OUTSIDE RECORDS SUMMARY | 2025-01-24 08:30 | XMS_ITS ---
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 Assessments Encounter Date Diagnosis (ICD Code) Assessment Notes Treatment Notes Treatment Clinical Notes Section Notes 01/24/2025 Venous insufficiency (chronic) ( peripheral) (ICD-10 - I87.2) 01/24/2025Squamous cell carcinoma of skin of left lower limb, including hip (ICD-10 - C44.729) Plan Of Treatment Next Appt Details Provider Name:AKOSUAABDULAZIZ CHAN HROW, 03/01/2025 09:00:00 AM, [address] [place] [address], [phone], Provider Name:AKOSUA CHAN HROW, 03/01/2025 09:15:00 AM, [address] [place] [address], [phone], Provider Name:AKOSUA CHAN HROW, 03/15/2025 09:00:00 AM, [address] [place] [address], [phone], Provider Name:AKOSUA MORSE, 06/29/2025 01:00:00 PM, [address] [place], [address], Progress Notes * Hesham RICARDO DDOB: [birth year] (79 yo M)Acc No.[id number]:01/24/2025 UNLOCKED PROGRESS NOTE Patient:?Hesham RICARDO :?KEITH VELÁSQUEZ, MDDOB:1945???Age:79 Y ???Sex:MaleDate:01/24/2025Phone:[phone]:[address] [place] [id number]:Anila Saeed In:01:21 PM ESTCheck Out:03:14 PM EST Subjective: * Chief Complaints: * 1 . SCC left distal pretibial region [id number]. * Medical History: Objective: * Vitals: Assessment: * Assessment: 1.?Venous insufficiency (chronic) (peripheral) - I87.2???2.?Squamous cell c arcinoma of skin of left lower limb, including hip - C44.729??? Plan: * Treatment: * Procedure Codes: 1 7313 MOHS, 1 STAGE, T/A/L, 55940 MOHS, ADDL STAGE, T/A/L, Units: 2.00 * * Electronic signature of KEITH VELÁSQUEZ MD on 02/04/2025 at 11:48 AM ESTSign off status: PendingVisit Status:?CHK (Check Out) * Provider: Jeff VELÁSQUEZ MD Date: 1 03/26/2024 Generated for Printing/Faxing/eTransmitting on:?02/04/2025 11:48 AM EST
--- OUTSIDE RECORDS SUMMARY | 2025-02-02 08:15 | XMS_ITS ---
Author Organization [facility] [place] Address [address] [place] [address] Care Team Providers Care Senior Packaging Engineer Name Role Phone Benito Moreau DO Primary Care Provider Unavailab AKOSUA Solis Unavailable [phone] REASON FOR VISIT bm PDT 2 Encounters Encounter Location Date Provider Diagnosis [facility] [address] [place] [phone] 02/02/2025 AKOSUA CHAPMAN Plan Of Treatment Next Appt Details Provider Name:AKOSUA MORSE, 03/01/2025 09:00:00 AM, [address] [place] [address], [phone], Provider Name:AKOSUA MORSE, 03/01/2025 09:15:00 AM, [address] [place] [address], [phone], Provider Name:AKOSUA MORSE, 03/15/2025 09:00:00 AM, [address] [place] [address], [phone], Provider Name:AKOSUA MORSE, 06/29/2025 01:00:00 PM, [address] [place] [address], [phone], Progress Notes * Hesham RICARDO DDOB: [birth year] (79 yo M)Acc No.[id number]:02/02/2025 UNLOCKED PROGRESS NOTE Progress Note Patient: Hesham WILLARD :?MARK FRIASOB:1945???Age: 79 Y???Sex:MaleDate:02/02/2025Phone:[phone]:[address], [id number]:Benito Moreau, Subjective: * Chief Complaints: * 1 . bm PDT 2. * Medical History: Objective: * Vitals: Assessment: Plan: * Treatment: * * Electronic signature of AKOSUA CHAPMAN PA-C, [id number] on 02/04/2025 at 11:47 AM ESTSign off status: PendingVisit Status:?LATE CANC (Late Cancel) * Provider: Saskia CHAPMAN PA-C Date: 04/04/2024 Generated for Printing/Faxing/eTransmitting on:?02/04/2025 11:47 AM EST
--- OUTSIDE RECORDS SUMMARY | 2025-02-04 06:25 | XMS_ITS | Continuity of Care Document ---
Author Organization [facility] Address [address] [place] [address] Phone Care Team Providers Care Sports Broadcaster Name Role Phone Prieto Benito PATEL Primary Care Provider Myles Bonilla APRN Attending Provider Aníbal Block MD Attending Provider Génesis Hodges APRN-[employer] EMISS[employer] INSPECTOR-C Attending Provider + Benito Moreau DO Attending Provider [phone] Care Teams Patient Care Team Team Status: Active Member Role/Relationship Status Dates Benito Moreau DO Primary Care Provider Active Visit Care Team Team Status: Inactive Member Role/Relationship Status Dates Benito Moreau DO Primary Care Provider Active S tart: November 17, 2024 End: November 17, 2024Layla Muñoz ProviderActiveStart: November 17, 2024 End: November 17, 2024 Visit Care Team Team Status: Active Member Role/Relationship Status Dates Benito Moreau DO Primary Care Provider Active S tart: January 25, 2025 Magalis Velasquez ProviderActiveStart: January 25, 2025 Visit Care Team Team Status: Inactive Member Role/Relationship Status Dates Benito Moreau DO Primary Care Provider Active S tart: February 01, 2025 End: February 01, 2025GARRISON N[place]-CAttending ProviderActive Start: February 01, 2025 End: February 01, 2025 Patient Care Team Team Status: Inactive Member Role/Relationship Status Dates Benito Moreau DO Primary Care Provider Active S tart: February 04, 2025 End: February 04, 2025Dajhonathan Moreau DOAttending ProviderActiveStart: February 04, 2025 End: February 04, 2025 Chief Complaint and Reason for Visit Chief Complaint Admit Date 2-4 w follow up EGD November 17, 2024 9: 20am Follow up February 01, 2025 11:32am weakness/dizziness/fatigue January 10:26am Reason for Visit Admit Date Abdominal discomfort in left lower quadr ant November 17, 2024 9:20am Dyspepsia November 17, 2024 9: 20am Early satiety November 17, 2024 9: 20am Weight loss November 17, 2024 9: 20am Abnormal finding on MRI of brain Novembe r 2024 11:32am Cervical myelopathy February 01, 2025 11:32am Leg pain, bilateral February 01, 2025 11:32am MCI (mild cognitive impairment) February 01, 2025 11:32am Anxiety and depression February 04 10:26am COPD (chronic obstructive pulmonary dise ase) February 04, 2025 10:26am GERD (gastroesophageal reflux disease) N ovember 2024 10:26am Squamous cell carcinoma February 04, 025 10:26am Leg pain, bilateral February 04, 2025 10:26am MCI (mild cognitive impairment) February 04, 2025 10:26am Allergies, Adverse Reactions, Alerts Allergen Type Severity Reaction Last Updated Verified Status Comments Penicillins Allergy Unknown Unknown Reaction, hives February 04, 2025 10:31am Yes Active pt able to take albuterol sulfacetamide Allergy Unknown hives February 04, 2025 10:31am Yes Active Sulfa (Sulfonamide Antibiotics)AllergyUnknownUnknown ReactionNov2024 10:31amYesActive Social History Smoking Status Status Start Date End Date Date of Observa tion Ex-smoker (finding) October 26, 2024 11:43am Observation Status Observation Response Date of Response Legal Sex Male (finding) Sex Assigned At BirthMaleJune 1945 Family History Relationship Condition Age at Onset Recorded Date/T jarrod sister Kidney disorder Unknown brotherCardiovascular diseaseUnknownbrotherHeart diseaseUnknownCongestive heart failureUnknownfatherMalignant neoplasmUnknownDeceasedUnknownHeart diseaseUnknown grandparentDeceasedUnknownmotherDeceasedUnknownsonMalignant neoplasmUnknown DeceasedUnknownmaternal grandfatherMalignant neoplasmUnknownDeceasedUnknown paternal grandfatherHeart diseaseUnknownDeceasedUnknownmaternal grandmother DeceasedUnknown Problems Active Problems Problem Diagnosis/Recorded Date Onset Date Status C omments Abdominal discomfort in left lower quadrant November 17, 2024 10:02am Unknown Active BPH (benign prostatic hyperplasia)September 26, 2023 8:49amUnknownActiveInsomniaJuly 2023 8:49amUnknownActiveBPPV (benign paroxysmal positional vertigo)May 29, 2024 3:03pmUnknownActiveCold soreJuly 2023 7:37amUnknownActiveLoss of appetiteJuly 2024 9:42amUnknownActiveSquamous cell carcinomaNovember 2024 10:42amUnknownActiveleft distal pretibial regionAbscessJuly 2023 7:35amUnknownActiveAnemiaJuly 2023 7:21amUnknownActiveLeg swellingNovember 2024 10:55amUnknownActiveDementiaMarch 2024 3:04pmUnknownActive DyspepsiaJuly 2024 9:44amUnknownActiveHyperglycemiaJuly 2023 7:19am UnknownActiveHyperlipidemiaJuly 2023 8:49amUnknownActiveEarly satietyJuly 2024 9:42amUnknownActiveMCI (mild cognitive impairment)October 10, 2024 9:05pmUnknownActiveDegenerative disc disease, lumbarJuly 2023 8:49amUnknown ActiveWeight lossJuly 2023 7:33amUnknownActiveWeight lossJuly 2024 9:35amUnknownActiveCervical myelopathyJuly 2024 9:06pmUnknownActive Suspicious nevusOctober 2023 9:08amUnknownActiveleft earPeripheral vertigo May 29, 2024 4:20pmUnknownActiveLeg pain, bilateralNovember 2024 5:56pm UnknownActiveMemory difficultyJuly 2023 7:19amUnknownActiveAnxiety and depressionJuly 2023 8:49amUnknownActiveCOPD (chronic obstructive pulmonary disease)September 26, 2023 8:49amUnknownActiveAbnormal finding on MRI of brainJuly 2024 9:06pmUnknownActiveGERD (gastroesophageal reflux disease)August 22, 2021 7:14amUnknownActiveNausea & vomitingJuly 2024 9:28amUnknownActive Abdominal painJune 2021 7:14amUnknownActiveAbdominal painJuly 2024 9:29amUnknownActiveChest painJuly 2023 7:42amUnknownActiveConstipationJune 2021 7:14amUnknownActiveConstipationJuly 2023 8:49amUnknownActive Inactive/Resolved Problems Problem Diagnosis/Recorded Date Onset Date Status C omments Vertigo December 17, 2023 1:33pm Unknown Resolved Medications Medication Status Dose Units Route Directions Qty Days Refills S tart Date Stop Date End Date Reason(s) Instructions Adherence Simvastatin 40 mg tablet Discontinued 0 .ROUTE.CKYHNBD341Wxyzc 2023 8:53amJuly 2023 7:29amTAKE 1 TABLET BY MOUTH AT BEDTIMEVenlafaxine 75 mg capsule,extended release 68ocMwjtffwlgtnz2 .ROUTE.TAYPZDI253Ajfy 2023 7:09amJuly 2023 7:29amTAKE 1 CAPSULE BY MOUTH DAILY WITH FOODValacyclovir (Valtrex) 500 mg duqrqoRilhlnvfeyww992ATYJ Three times daily as needed for cold nrkov76625Pfdzob 2023 11:00pmAugust 2023 12:57pmValacyclovir (Valtrex) 500 mg kvbvihYjsyolmxvhmm795RLRSWvgse84 ugu2023 12:57pmJuly 2024 9:33amcold soresDoxycycline Hyclate 100 mg anzylxvSqprixowucrn577KLRUXjjbr entvn99093Pkwufsri 2024 12:00amApril 2024 12:57pmSimvastatin 40 mg tabletActive0.ROUTE.BRPJXJK708Mgasz2024 7:53amTAKE 1 TABLET BY MOUTH AT BEDTIMEComplies with drug therapyDoxycycline Hyclate 100 mg bpjqrgpFoonlhapmmjh003AGGQKtggs hvmwa08033Ntefi 2024 12:56pm October 05, 2024 9:33amPrednisone 20 mg dfbtpxHyxkaugamodv0SM.with food or milk18 il 2024 11:00pmJuly 2024 9:32amtake 3 tablets a day x3 days, 2 tabs a day x3 days and then 1 tab a day x3 days orally WITH FOOD ORMILK; Venlafaxine 75 mg capsule,extended release 13htTukgdkxgdzkm5.ROUTE.KCOUKYU259 July 14, 2024 7:00amNovember 2024 11:00amTAKE 1 CAPSULE BY MOUTH DAILY WITH FOODDonepezil 5 mg ctkevdNnnremgmrqle9SCRGZhpsq at cspwvji09363Xwvgkq 25th, 2025 2:31pmNovember 2024 6:55ipYpjapcnmlv-Nttwgoqz-Lkozljvrsn (Breztri Aerosphere) 160-9-4.8 mcg/actuation HFA aerosol wuilffjZvglsl0LGMVOVBYAEQPUQhlpn October 12, 2024 11:00pmComplies with drug therapyOmeprazole 40 mg capsule,delayed release(DR/EC)Zlxmhg19OPVTYqvnv695Qqxioq 4th, 2025 11:00pm Complies with drug therapySimvastatin 40 mg tiqullRuyrzmvocmid74NNJWWcauqIwz 2021 11:00pmMarch 2023 8:53amPantoprazole 40 mg tablet,delayed release (DR/EC)Udnirgjoxxbl06IZZBVrdvtVdy 30th, 2022 11:00pmJuly 2023 7:18amBisacodyl (Dulcolax (Bisacodyl)) 5 mg Tablet,Delayed Release (Dr/Ec) Azuvcvrjsrkf7SFTAIbvuf at bedtimeMay 2021 11:00pmJuly 2023 8:57am Finasteride 5 mg bztugcIvuqdm2LPFBLivknEda 30th, 2022 11:00pmComplies with drug therapyCoenzyme Q10 (Co Q-10) 30 mg JpvhezsNborlq17HLKBGgiapKmm 30th, 2022 11:00pmComplies with drug therapyBisacodyl (Dulcolax (Bisacodyl)) 5 mg tablet,delayed release (DR/EC)Rvcvmhpektzk5AIGdnelJfuh 2023 8:55amJuly 2023 7:17amtake 2 (5 MG) tablets orally dailyVenlafaxine 75 mg capsule,extended release 75icYxqigssuqzss35BCJWSkgepXlpt 2023 11:00pmJune 2023 7:09amWITH OWVYFutgnmktvuq-Gslxdkelr-Smnjmyzf (Trelegy Ellipta) 100-62.5-25 mcg blister with deviceDiscontinuedINHALATIONMaruary 2024 12:00amJuly 2024 10:23amDonepezil 10 mg utyrfwWeplpc92DBVDhtdnd09866 February 01, 2025 6:02pmMild cognitive impairment Mild cognitive impairment of uncertain or unknown etiologyComplies with drug therapyBacitracin Zinc 500 unit/gram ointmentActiveTOPICALNovember 2024 12:00amComplies with drug therapyVenlafaxine (Effexor Xr) 150 mg capsule,extended release 54moZpdhlf186THRXCvmsi324Wplcnznd 2024 12:00am Complies with drug therapyMecobalamin (Vitamin B12) 1,000 mcg tablet,chewable Qnjvrawzkyog5044NHATX.COMPLEXJuly 2023 11:00pmJanuary 2024 8:28am1 tablet Orally qd x6 days a weekTiotropium [place] (Spiriva Respimat) 2.5 mcg/actuation yhldVmfgtjkywcki2JMNKUPSQCOBOWYZwmzkDbhd 2023 11:00pm December 17, 2023 1:22pmAlbuterol Sulfate (Proair Hfa) 90 mcg/actuation HFA aerosol yhsttzdMfvncl6QPWDFUWSOEUWKHwkgc 4 hoursJuly 2023 11:00pmComplies with drug therapyVenlafaxine 75 mg capsule,extended release 76orPzcwvfnuceut49DW PODailyJuly 2023 7:28amApril 2024 7:00amSimvastatin 40 mg tablet Tlnzukoeujhm12AIDBLygwz eveningJuly 2023 7:28amMarch 2024 7:53am Mecobalamin (Vitamin B12) 1,000 mcg tablet,bipqjbdqRojmrs2148ZBAKIOssroIyatlss 2024 8:28am1,000 mcg orally 1 tablet Orally qd x6 days a week;Complies with drug therapyValacyclovir (Valtrex) 1 gram cggdauKsioxrboiocq2512TBSJShgdu times vaqnj353Usqpirv 2023 11:00pmJuly 2024 9:33amDonepezil 5 mg dwychqVnxtzmhwpiqk7EHIVMghp 2024 11:00pmJuly 2024 10:38amDonepezil 5 mg iysoikYauljusfxrdp1FHFLGyccs at bedtimeJuly 2024 10:38amAugust 2024 2:31pmDoxycycline Hyclate 100 mg gcqwqrgJvkvnf715TALKNmluu daily as needed for infectionJuly 2024 9:32amComplies with drug therapyValacyclovir (Valtrex) 1 gram pxjclyBsdrhx9945YXEZBheka times daily as needed for cold sores October 05, 2024 9:32amComplies with drug therapy Immunizations Immunization Event Date Not Given Reason 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 Vaccine, 23 valentOctober 2016Pneumococcal Polysacc. Vaccine, 23 valent December 23, 2019Zoster Vaccine Recombinant, AdjuvantedDecember 2019Zoster Vaccine Recombinant, AdjuvantedMarch 2020Tetanus toxoidJuly 2017 Trivalent Influenza VaccineOctober 2016Trivalent Influenza VaccineOctober 2017Trivalent Influenza VaccineOctober 2019Trivalent Influenza Vaccine January 23, 2021Trivalent Influenza VaccineSeptember 2021 Relevant Diagnostic Tests and/or Laboratory Data Laboratory Results Test Collection Date/Time Result Date/Time Result Interpretation Reference Range Result Comment Performing Site Anion Gap January 25, 2025 6:40am January 25, 2025 6: 40am 13.0 Basophils # (Auto)January 25, 2025 6:40amNovember 2024 6:40am0.0 10 3/uL 0.0-0.1BUN/Creatinine RatioNovember 2024 6:40amNovember 2024 6:40am 19.6Basophils (%) (Auto)January 25, 2025 6:40amNovember 2024 6:40am0.4 % 0.2-2.0Blood Urea NitrogenNovember 2024 6:40amNovember 2024 6:40am18.0 mg/dL7.0-18.0Eosinophils # (Auto)January 25, 2025 6:40amNovember 2024 6:40am0.2 10 3/uL0.0-0.7Calcium LevelNovember 2024 6:40amNovember 2024 6:40am9.9 mg/dL8.5-10.1Eosinophils (%) (Auto)January 25, 2025 6:40amNovember 2024 6:40am1.5 %0.9-7.0Chloride LevelNovember 2024 6:40amNovember 2024 6:32rd714 mmol/R68-481FtfvzllvutSyvdxiay 2024 6:40amNovember 2024 6:40am43.7 %42.0-54.0Carbon Dioxide LevelNov2024 6:40amNovember 2024 6:40am29.6 mmol/L21.0-32.0HemoglobinNov2024 6:40amNovember 2024 6:40am14.4 g/dL14.0-18.0CreatinineNov2024 6:40amNovember 2024 6:40am0.92 mg/dL0.70-1.30Immature Granulocyte # (Auto)January 25, 2025 6:40amNovember 2024 6:40am0.02 10 3/uL0.00-0.03Estimated GFR ()January 25, 2025 6:40amNovember 2024 6:40am>60>=60 mL/min/1.73m 2Immature Granulocyte % (Auto)January 25, 2025 6:40amNovember 2024 6:40am 0.2 %0.0-0.5Estimated GFR (Non- AmericanNov2024 6:40amNovember 2024 6:40am>60>=60 mL/min/1.73m 2Lymphocytes # (Auto)January 25, 2025 6:40amNovember 2024 6:40am2.1 10 3/uL1.2-3.8Glucose LevelNov2024 6:40amNovember 2024 6:41yi649 mg/dLAbove high xbzsek24-596Gnhlpwxgnma (%) (Auto)January 25, 2025 6:40amNovember 2024 6:40am21.7 %20.5-60.0Potassium LevelNov2024 6:40amNovember 2024 6:40am4.6 mmol/L3.5-5.1Mean Corpuscular HemoglobinNov2024 6:40amNovemb2024 6:40am31.6 pg 25.9-34.0Sodium LevelNov5 6:40amNovember 2024 6:49oj677 mmol/Q078-960Jpir Corpuscular Hemoglobin ConcentJanuary 25, 2025 6:40am January 25, 2025 6:40am33.0 g/dL29.9-35.2Mean Corpuscular VolumeJanuary 25, 2025 6:40amNovember 2024 6:40am96.0 fLAbove high .0-94.0Monocytes # (Auto)January 25, 2025 6:40amNovember 2024 6:40am0.9 10 3/uLAbove high normal0.3-0.8Monocytes (%) (Auto)January 25, 2025 6:40amNovember 2024 6:40am8.9 %1.7-12.0Mean Platelet VolumeJanuary 25, 2025 6:40amNovember 2024 6:40am9.1 fLBelow low normal9.5-13.5Neutrophils # (Auto)January 25, 2025 6:40amNovember 2024 6:40am6.6 10 3/uLAbove high normal1.4-6.5Neutrophils (%) (Auto)January 25, 2025 6:40amNovember 2024 6:40am67.3 %43.0-75.0 Platelet CountJanuary 25, 2025 6:40amNovember 2024 6:19ot657 10 3/uL 150-450Red Blood CountJanuary 25, 2025 6:40amNovember 2024 6:40am4.55 10 6/uLBelow low normal4.70-6.10Red Cell Distribution WidthJanuary 25, 2025 6:40amNovemb2024 6:40am12.7 %11.0-15.0Corrected White Blood Count January 25, 2025 6:40amNovember 2024 6:40am9.8 10 3/uL4.0-11.0 Vital Signs Vital Reading Result Reference Range Collection Date/Time Height 70 [in_i] November 17, 2024 8:63gjKvpadl01.03 kgAugust 2024 8:34amHeart Rate64 /min 60-100August 2024 8:34amBP Xrfvhqxu198 mm[Hg]100-140August 2024 8:34amBP Zmwqqsvpe57 mm[Hg]60-100August 2024 8:34amBMI (Body Mass Index) 21.5 kg/u5Rrreuu 2024 8:62hzTtwdwl46 [in_i]February 01, 2025 11:39am Sjmkat51.94 kgFebruary 01, 2025 11:39amHeart Rate72 /tvx88-859PbssiftiFebruary 01, 2025 11:39amRespiratory rate16 /vbx42-05QtywltamFebruary 01, 2025 11:39amOxygen saturation by Pulse asjrcyus94 %95-100February 01, 2025 11:39amBP Ydrclrhf369 mm[Hg]100-140February 01, 2025 11:39amBP Blocuznmq79 mm[Hg]60-100February 01, 2025 11:39amBMI (Body Mass Index)21.8 kg/o1FkiraasrFebruary 01, 2025 11:39am Quclao76 [in_i]February 04, 2025 10:54uvHrrkjq15.94 kgFebruary 04, 2025 10:26amBody Edjwwobkjrg25.7 [degF]97.6-99.0February 04, 2025 10:26amHeart Rate 58 /xtl53-410UbpoowszFebruary 04, 2025 10:26amOxygen saturation by Pulse owxjwgfn19 % 95-100February 04, 2025 10:26amBP Fsfhjzkc910 mm[Hg]100-140February 04, 2025 10:26amBP Mgmmblrkk97 mm[Hg]60-100February 04, 2025 10:26amBMI (Body Mass Index)21.8 kg/o3GykcncyvFebruary 04, 2025 10:26am Advance Directives Advance Directive Response Recorded Date/ Time Advance Directives No June 23 9:45am Insurance Providers Guarantor Jeff Woodard Address [address] [place] [id number] Info.Home Phone: Payer Group Member ID Coverage Type Subscriber Relationship to Subscriber Effective Date Expiration Date TYSON Id: [id number] A Griffin Id: [id number] [facility] [address] Home Phone: Email: [email or web address] [email or web address] Encounter Location(s) Arrival/Admit Date Discharge/Departure Date Discharge/Departure Disposition Provider(s) Departed Physician/ Provider Office Visit -[facility] November 17, 2024 9:20am November 17, 2024 10:18am Discharged to home care or self care (routine discharge) Myles Bonilla APRN Non-patient / Non-visit -[facility] N 2024 6:40am [facility]2024 11:32amNovember 2024 12:40pmDischarged to home care or self care (routine discharge)Génesis Hodges APRN-FNP-CDeparted Physician/Provider Office Visit-[facility] Family Medicine [place] 04, 2025 10:26amNovember 2024 11:23amDischarged to home care or self care (routine discharge)Benito Moreau , DO Recent Diagnosis Onset Date Admit Date Abdominal discomfort in left lower quadrant Unkn own November 17, 2024 9:20am Dyspepsia Unknown November 17 9:20am Early satiety Unknown November 17 9:20am Weight loss Unknown November 17 9:20am Abnormal finding on MRI of brain Unknown February 01, 2025 11:32am Cervical myelopathy Unknown January 11:32am Leg pain, bilateral Unknown January 11:32am MCI (mild cognitive impairment) Unknown February 01, 2025 11:32am Anxiety and depression Unknown February 04, 2025 10:26am COPD (chronic obstructive pulmonary disease) Unk nown February 04, 2025 10:26am GERD (gastroesophageal reflux disease) Unknown February 04, 2025 10:26am Squamous cell carcinoma Unknown February 04, 2025 10:26am Leg pain, bilateral Unknown January 10:26am MCI (mild cognitive impairment) Unknown February 04, 2025 10:26am Assessments Diagnosis Onset Date Resolution Status Admit Date Abdominal discomfort in left lower quadr ant acuteAugust 2024 9:20amDyspepsiaacuteAugust 2024 9:20amEarly satiety acuteAugust 2024 9:20amWeight lossacuteAugust 2024 9:20amAbnormal finding on MRI of brainchronicNov2024 11:32amCervical myelopathy chronicNov2024 11:32amLeg pain, bilateralchronicNov2024 11:32amMCI (mild cognitive impairment)[facility] 11:32amAnxiety and depressionacuteB[facility]2024 10:26amCOPD (chronic obstructive pulmonary disease)acute[facility]2024 10:26amGERD (gastroesophageal reflux disease)acuteB[facility]2024 10:26amSquamous cell carcinomaacuteNov2024 10:26amLeg pain, bilateralchronicNov2024 10:26amMCI (mild cognitive impairment)chronicBetsy [facility]2024 10:26am Plan of Treatment Author Génesis Hodges [facility] 2024 6:04pmThe patient reports subjective memory difficulty dating back at least 5+ years with progressive worsening but at a slow pace. He remains independent with all ADLs. However, he does notice some difficulty with recall of names, word retrieval, and recent recall which are bothersome to him. There is a positive family history of late-onset dementia in his father and brother, and this causes the patient a lot of anxiety, as he wonders if he will develop it too. MOCA score on 04/26/2024 was 20/30. Neuropsychological evaluation on 07/07/2024 revealed some memory struggles most consistent with mild neurocognitive disorder, exacerbated by anxiety and variable depression. The patient sleep well and denies daytime fatigue, snoring, or apneic episodes, lowering suspicion for GLORIA. He takes vitamin B12 supplementation which is reportedly managed by his primary care provider. Vitamin B12 and TSH were WNL in early 2024. He reports subtle, subjective worsening of his memory since the prior neurology appointment. PLAN: - Increase donepezil to 10 mg mouth daily. I counseled the patient and his on the intended purpose of this medication and possible adverse effects. They verbalized understanding and wish to proceed. They understand to notify our office if the patient notices any unfavorable side effects following the dose increase - Plan to repeat Xiang cognitive assessment at follow-up - Try to ensure adequate sleep (at least 8 hours per night), healthy diet such as the Mediterranean diet, regular exercise as tolerated, and participation in lifelong learning - We discussed can compensatory memory tools - I recommended the patient schedule a follow-up appointment with his PCP to address anxiety and depression. We discussed the negative impacts that poorly controlled anxiety and depression can have on memory - to continue to assist with medication management - Extra caution with driving - Recommended driving only locally to familiar locations and with present MRI of the brain on 05/28/2024 identified a 6 mm signal abnormality in the lateral portion of the right frontal lobe thought to possibly represent a meningioma. I believe this is unlikely to be contributing to the patient's symptoms. PLAN: - I recommended repeat MRI of the brain to help confirm etiology of the brain lesion and to monitor for stability versus evolution. The patient verbalizes understanding but has refused repeat MRI brain. He understands underlying pathology may be missed without this, and this could be debilitating or life-threatening. 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 PLAN: - Follow up with surgery team per their recommendations The patient reports bilateral leg pain with onset approximately 1 month ago. He describes this as a tingling/tyng-ydy-inzdds sensation in the posterior aspect of his bilateral legs. He reports mild lower extremity weakness as well but has no focal weakness on physical exam. He denies skin discoloration or swelling, but physical exam reveals mild left lower leg swelling. While this may be secondary to reported sarcoma excision last week, would like the patient to follow-up with his PCP for this. PLAN: - I informed the patient that I have suspicion for lumbosacral radiculopathy. However, I cannot exclude alternative etiologies at this time. I recommended EMG of the bilateral lower extremities to help delineate the cause of the patient's leg pain. The patient verbalized understanding but declined EMG for now, stating his symptoms are tolerable. I did suggest he notify our office if symptoms fail to improve or worsen - I strongly recommended the patient call his PCP today and make PCP aware of his leg pain as well. This would be to rule out nonneurologic causes of leg pain such as DVT or vascular disease. I did inform the patient that DVT can be life-threatening if not promptly identified and treated, so I strongly suggest he follow through with this recommendation as advised. and patient verbalized understanding of these instructions Diagnoses and treatment plan discussed. The patient and his verbalized understanding and are agreeable to the plan. All questions answered. Author Sarah Deshpande [facility] HospitalAuthoredGood [facility] 2024 11:15amHe voices that his right leg started to feel numb prior to his MOHS procedure but then the left leg started to feel the same way. The neurologist saw him and was concerned that he may have a blood clot. He voices that the leg tingles as well. He had back surgery 15-[address] D[place] in [place]. We discussed that these symptoms could be caused by his back. He voices that the numbness and tingling travels all the way up his left leg. I would like to order a venous doppler to rule out a DVT. He is agreeable. I do suspect that the issue with his legs is coming from his back. I would like to order an x-ray of his back. He agrees and an order was provided, he can call for results. He does have positive straight leg raising on the left on exam. Based on his x-ray results we may need to proceed with getting an MRI of the lumbar spine followed by a referral to see Dr. Grier. He does follow with the neurologist, his medication was increased earlier this week. He voices that his memory has started to decline. He voices that he is getting scared, he will be sitting in the chair and cannot remember something and then all of a sudden it will come back to him and it scares him badly. He voices that he has already lived longer than the other males in his family and this also scares him. He feels like he is going off the sim . I did recommend that he walk daily. He did have a MOHS procedure on 01/24/2025, he voices that this started to bleed when he got home. He was supposed to see Dr. Alonso yesterday but started to get sick on the way so he had to turn around and go home and get in bed. He thinks it may have been nerves. He will return there as scheduled. He and his voice that his anxiety has worsened. He had a cognitive test done that showed a lot of anxiety. His neurologist suggested he change his anxiety medication. He feels his memory worsens when he is anxious. He is on Venlafaxine 75 MG currently. We discussed that you never know how well the Venlafaxine is working until you come off of this. Coming off it has to be done very slowly. Instead we discussed him increasing the dose for six weeks to see if this helps improve his anxiety, if it does not then we will discuss decreasing the dose and eventually having him take something different. He is agreeable to this. Guidance is given on how to take the increased dose. Hold on to the 75 MG dose incase he needs to come off the medication. It can take up to six weeks for the increased dose to be at full effect. He voices that he had an infection in his stomach and saw Dr. Toledo, he was placed on Omeprazole. He has an appointment to see Dr. Avalos in July (2025). [facility] Order CT abdomen pelvis for further evaluation of unexplained weight loss, left lower quadrant discomfort upon palpation and movement. - Continue PPI therapy for treatment of dyspepsia and gastroduodenitis noted on EGD. - Anti-reflux precautions discussed: ?? Loss weight ?? Elevate head of bed 4-6 inches when sleeping ?? Avoid eating within 3 hours before bedtime. ?? Maintain upright posture during and after eating. ?? Avoid clothing that is tight in the abdominal area. ?? Minimize narcotics ?? Avoid foods that make symptoms worse (examples include coffee, chocolate, alcohol, peppermint, and fatty foods) . Eat 5-6 small meals throughout the day instead of 2-3 large meals. ?? Do not use tobacco products ?? Minimize alcohol use ?? Avoid lying down for 3 hours after a meal - Recommend 6 to 8 12oz glasses of water a day to help facilitate adequate hydration. - Recommend daily fiber intake via fruits and vegetables. - Follow-up in office in [address] findings. Future Tests Future scheduled test information is unavailable Pending Tests Test Name Ordered Date Scheduled Date Comprehensive Metabolic Panel February 04 11:15am 2 Months XR lumbar spine 2-3V* February 04, 2025 11:03a m US venous duplex LE BINovember 2024 10:53amCT abdomen pelvis w conAugust 2024 9:07am Future Visits Future appointment information is unavailable Future Procedures Procedure Name Ordered Date Scheduled Date A1C with Estimated Average Glu February 04 11:15am 2 Months Complete Blood Count Auto Diff February 04 11:15am 2 Months Lipid Panel February 04, 2025 11:15am 2 Mo nths Thyroid Stimulating Hormone February 04, 2025 11:16am 2 Months Vit. B12/Folate Profile February 04, 2025 11:1 5am 2 Months Future Medications Future medication information is unavailable Patient Instructions Patient instructions are unavailable
--- NOTE | 2025-02-04 11:46 | XR_ITS ---
[facility] [place] 1940611 Patient Name: JB VAIL MRN: [id number] date: 1945 Sex: M Assigned Patient Location: [facility] Current Patient Location: [facility] Accession/Order Number: [id number] Exam Date: 02/04/2025 12:05 Report Date: 02/04/2025 16:25 At the request of: KEITH ATKINSON Procedure: XR lumbar spine 6V w bending 6 views lumbar spine with bending compared to prior examination 11/09/2018 HISTORY: Bilateral lower extremity pain No hypermobility. Progression of extensive L4-5 spondylosis. Progression of extensive L5-S1 spondylosis. Extensive lower lumbar hypertrophic facet changes. No acute fracture. Extensive atherosclerosis. XR/XR lumbar spine 6V w bending IMPRESSION: No hypermobility. Progression of extensive L4-5 and L5-S1 degeneration. Impression dictated by: Nick Kurtz M.D. 02/04/2025 4:25 PM Dictation Location: [facility] Electronically authenticated by: [id number] Y Date: 02/04/2025 16:25
--- OUTSIDE RECORDS SUMMARY | 2025-02-04 11:46 | XMS_ITS | Clinical Summary ---
Author Organization [facility] Address [address] [place] [address] Care Team Providers Care Cargo And Ramp Services Manager Name Role Phone Kun Olvera Primary Care Provider [phone] Allergies Active AllergyReactionsCriticalityNoted NcwlRylfafsbDbcsngepcnuJbba47/06/2002 Sulfa (Sulfonamide Antibiotics)Rash05/27/2001 Medications MedicationSigDispense QuantityRefillsLast FilledStart DateEnd DateStatus CELEBREX 200 MG CAP Take one(1) tablet two(2) times daily.ctive Additional Information Patient not taking.Reported on 09/29/2020 SOMA 350 MG TAB Take one(1) tablet three times daily as sjlihqgko014/10/2007ctive PERCOCET 5 MG-325 MG TAB Take one(1) [...] FLULAVAL, FLUZONE)12/22/2018,01/20/2017 influenza vaccine, whole virus01/10/2009novel influenza (X6Z0-42) vaccine, PF 03/30/2009pneumococcal polysaccharide (PPV23) vaccine, 23 valent (PNEUMOVAX 23) 01/20/2017tetanus toxoid (TT) slgerii6010/05/2017 Family History Medical HistoryRelationCommentsmultiple sclerosis [Other]BrotherCancerFather ThyroidMaternal GrandmotherPsychiatryMotherStrokePaternal Grandfatherkidney [Other]Sisterdeceased, renal failure age 50CancerSonbrain tumor, 2000 RelationStatusCommentsBrotherFatherMaternal GrandmotherMotherPaternal GrandfatherSisterSon Social History Tobacco UseTypesPacks/DayYears UsedDateSmoking Tobacco: IhblgsNyxzoqpqim2878798 - 2007Smokeless Tobacco: Never Comments:previously quit 10 years, smoked 30 years before that Alcohol UseStandard Drinks/WeekCommentsYes0 (1 standard drink = 0.6 oz pure alcohol)once every 3 monthsArea Deprivation IndexAnswerDate RecordedNational Score (1-100), lower number is lower riskNot on file02/29/2020State Score (1- 10), lower number is lower riskNot on file02/29/2020Data from: https://www.neighborhoodatlas.[facility].edu/. 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 closedNot on fileNot on fileNot on file Last Filed Vital Signs Vital SignReadingTime TakenCommentsBlood Kqftepvv969/7107/11/2020 9:07 AM EDT Lgryu7478 9:07 AM MSXXjuwpwuqned42.4 ??C (97.6 ??F)05/12/2019 9:24 AM ESTRespiratory Rate--Oxygen Zkalntkxcu33%09/29/2020 9:07 AM EDTRAInhaled Oxygen Concentration--Nxzwml56.4 kg (153 lb)09/29/2020 9:07 AM GJDEercho806.8 cm (5' 10 )05/12/2019 9:24 AM ESTBody Mass Index21.95005/12/2019 9:24 AM EST Plan of Treatment Health MaintenanceDue DateLast DoneCommentsAnxiety Yldssmwnc80/29/1966Depression Xfkvibvpr33/29/1966Hepatitis C Zmeamwxap06/29/1966DTaP,Tdap,Td Vaccine (1 - Tdap)09/19/1966Diabetes Xyncsjrsn82/29/1993RSV Vaccine (1 - 1-dose 75+ series) 09/19/2022dvance Directive Mcyoctlsdb38/01/2025ovid-19 Vaccine ( season)2020, 05/01/2020Influenza Vaccine (#1)2024 12/23/2019, 12/28/2018, 12/22/2018, Additional history existsPneumococcal Vaccine: 50+Tcbswzsmw89/01/2020, 01/20/2017Shingrix CrueanxCaocglrei04/24/2021, 03/21/2020 Insurance Care Teams Team MemberRelationshipSpecialtyStart DateEnd Date Kun Olvera [address] [place] [address] [facility]06/26/01
--- OUTSIDE RECORDS SUMMARY | 2025-02-04 11:47 | XMS_ITS | Clinical Summary ---
Author Organization [facility] Address [address] [place] [address] Care Team Providers Care Fur Tinter Name Role Phone Benito Moreau MD Primary Care Provider [phone] Génesis Hodges BRANCH LENDING MANAGER Unavailable [phone] TimothyJean Paul woodsontristian DO Unavailable [phone] Allergies Active AllergyReactionsCriticalityNoted IanjVbvkxdmbGgapegrpiio67/03/2025Sulfa Viqzvxdlmfq74/03/2025 Medications MedicationSigDispense QuantityRefillsLast FilledStart DateEnd DateStatus simvastatin [...] RecordedSex Assigned at BirthNot on file Legal InfMkkl0207/22/2022 8:32 PM EDTGender IdentityNot on fileSexual Orientation Not on file Last Filed Vital Signs Vital SignReadingTime TakenCommentsBlood Dgiwfwmz983/7204 8:33 AM EDT Ybfzt2331 8:33 AM EDTTemperature--Respiratory Rate--Oxygen Unnxiyidni67% 04/26/2024 8:57 AM ESTInhaled Oxygen Concentration--Ljfeld78.2 kg (157 lb) 07/15/2024 8:33 AM ZATWsoaie790.8 cm (5' 10 )07/15/2024 8:33 AM EDTBody Mass Index22.53007/15/2024 8:33 AM EDT Plan of Treatment Health MaintenanceDue DateLast DoneCommentsCOVID-19 Vaccine ( season) /12/2023, 01/20/2023, 06/29/2021, Additional history existsInfluenza Vaccine (#1), 01/20/2023, 12/06/2021, Additional history existsPneumococcal Vaccine: 65+ XsqwtRwyxhxdvq21/06/2021, 12/23/2019, 12/23/2019, Additional history exists Insurance Care Teams Team MemberRelationshipSpecialtyStart DateEnd Date Benito Moreau MD [address] [place] [address] PCP - GeneralFamily Medicine04/26/24 Génesis Hodges NP [address] [place] [address] Nurse PractitionerNeurology06/16/24 Tremayne Aguirre DO [address] [place] [address] Referring PhysicianNeurology06/16/24
--- OUTSIDE RECORDS SUMMARY | 2025-02-04 11:47 | XMS_ITS | Clinical Summary ---
Author Organization [facility] Address [address] [facility] [place] [address] Phone Care Team Providers Care Otolaryngology Physician Name Role Phone Unavailable Primary Care Provider Unavailabl e Social History Tobacco UseTypesPacks/DayYears UsedDateSmoking Tobacco: Never AssessedSex and Gender InformationValueDate RecordedSex Assigned at BirthNot on fileLegal Sex Male02/15/2022 9:07 PM ESTGender IdentityNot on fileSexual OrientationNot on file Plan of Treatment Not on file
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
--- OUTSIDE RECORDS SUMMARY | 2025-02-04 11:48 | XMS_ITS | Clinical Summary ---
Author Organization [facility] Address [address] [facility], [address] [place] [address] Care Team Providers Care Sawmill Hand Name Role Phone Unavailable Primary Care Provider Unavailabl e Social History Tobacco UseTypesPacks/DayYears UsedDateSmoking Tobacco: Never AssessedSex and Gender InformationValueDate RecordedSex Assigned at BirthNot on fileLegal Sex Male05/03/2012 3:48 PM ESTGender IdentityNot on fileSexual OrientationNot on file Plan of Treatment DateTypeDepartmentCare Team (Latest Contact Info)Nbapwftmexd72/19/2026 10:00 AM EDTOffice Visit [facility] [address] [place] [address] [address] [place] [address] [place] [address] [place] [address] [address] [place] [address] [place] - COPD/ASTHMA
== END 2025-02-04 11:37 | disposition home or self-care (01) ==
LOC: RAD 11:40
PROVIDERS: PCP Family Medicine; Visit Provider Family Medicine
DX: M79.605 Pain in left leg (principal); M51.369 Other intervertebral disc degeneration, lumbar region without mention of lumbar back pain or lower extremity pain; M79.89 Other specified soft tissue disorders
CPT/HCPCS: 72114

== ENCOUNTER 2025-03-16 17:29 | Emergency (ER) | payer MEDICARE, SELFPAY ==
--- OUTSIDE RECORDS SUMMARY | 2024-09-28 08:15 | XMS_ITS ---
Author Organization [facility] in [place] Address [address] [place] [address] Care Team Providers Care Meat Washer Name Role Phone Benito Moreau DO Primary Care Provider Unavailab Akosua Jenkins Unavailable [phone] REASON FOR VISIT rm bm 6mo fbse, schedule PDT Encounters Encounter Location Date Provider Diagnosis [facility] [address] [place] [address] 09/28/2024 Akosua Carreno Plan Of Treatment Next Appt Details Provider Name:AKOSUA CHAN MINI, 06/29/2025 01:00:00 PM, [address] [place] [address], [address], Progress Notes * Hesham RICARDO DDOB: [birth year] (79 yo M)Acc No.[id number]:09/28/2024 UNLOCKED PROGRESS NOTE Established Patient: Hesham WILLARD :?CHACHA Chakraborty-CDOB:1945???Age: 79 Y???Sex:MaleDate:09/28/2024Phone:[phone]:[address] [place] [address]Pcp:Benito Moreau DO Subjective: * Chief Complaints: * 1 . rm bm 6mo fbse, schedule PDT. * Medical History: Objective: * Vitals: Assessment: Plan: * Treatment: * * Electronic signature of Akosua Carreno PA-C on 03/16/2025 at 06:03 PM EST Sign off status: PendingVisit Status:?CANC (Cancelled) * Provider: Saskia Carreno PA-C Date: 0 09/28/2024 Generated for Printing/Faxing/eTransmitting on:?03/16/2025 06:03 PM EST
--- OUTSIDE RECORDS SUMMARY | 2024-12-28 06:00 | XMS_ITS ---
Author Organization The [facility] in [place] Address [address] [place] [address] Care Team Providers Care Film Washer Name Role Phone Benito Moreau DO Primary Care Provider Unavailab AKOSUA Solis Unavailable [phone] REASON FOR VISIT rm rm bm 6mo fbse, schedule PDT Encounters Encounter Location Date Provider Diagnosis [facility] [address] [place] [address] 12/28/2024 AKOSUA CHAPMAN Other skin changes due [...] Of Treatment Next Appt Details Provider Name:AKOSUA Justyn CHAN MINI, 06/29/2025 01:00:00 PM, [address] [place], [address], Progress Notes * YAREDHesham DDOB: [birth year] (79 yo M)Acc No.[id number]:12/28/2024 UNLOCKED PROGRESS NOTE Established Patient: Hesham WILLARD :?CUATE FRIASCDOB:1945???Age: 79 Y???Sex:MaleDate:12/28/2024Phone:[phone]:[address] [place] [address]Pcp:Anila Saeed In:10:59 AM ESTCheck Out: 11:45 AM [...] 1 7004 DESTROY LESIONS, 15 OR MORE, 30036 PUNCH BIOPSY OF SKIN, SINGLE LESION, TthNo: 59, Srfc: , Modifiers: 59 , 30869 PUNCH BIOPSY OF SKIN, EACH ADDL LESION, TthNo: 59, Srfc: , Modifiers: 59 , 33064 TANGENTIAL BIOPSY OF SKIN ADDT, TthNo: 59, Srfc: , Units: 3.00 , Modifiers: 59 , 41957 BIOPSY OF EXTERNAL EAR, TthNo: 59~LT, Srfc: , Modifiers: 59 , LT * * Electronic signature of AKOSUA CHAPMAN PA-C, [id number] on 03/16/2025 at 06:04 PM ESTSign off status: PendingVisit Status:?CHK (Check Out) * Provider: Saskia CHAPMAN PA-C Date: 1 Generated for Printing/Faxing/eTransmitting on:?03/16/2025 06:04 PM EST
--- OUTSIDE RECORDS SUMMARY | 2025-01-05 05:30 | XMS_ITS ---
Author Organization The [facility] in [place] Address [address] [place] [address] Care Team Providers Care Soot Blower Name Role Phone Benito Moreau DO Primary Care Provider Unavailab AKOSUA Solis Unavailable [phone] REASON FOR VISIT bm PDT 1 Encounters Encounter Location Date Provider Diagnosis [facility] [address] [place] [address] 01/05/2025 AKOSUA CHAPMAN Plan Of Treatment Next Appt Details Provider Name:AKOSUA CHAN MINI, 06/29/2025 01:00:00 PM, [address] [place] [address], [address], Progress Notes * Hesham RICARDO DDOB: [birth year] (79 yo M)Acc No.[id number]:01/05/2025 UNLOCKED PROGRESS NOTE Progress Note Patient: Osmani Hesham FOX :?CUATE FRIASCDOB:1945???Age: 79 Y???Sex:MaleDate:01/05/2025Phone:[phone]:[address] [place] [address]Pcp:Benito Moreau DO Subjective: * Chief Complaints: * 1 . bm PDT 1. * Medical History: Objective: * Vitals: Assessment: Plan: * Treatment: * * Electronic signature of AKOSUA CHAPMAN PA-C, [id number] on 03/16/2025 at 06:05 PM ESTSign off status: PendingVisit Status:?CANC (Cancelled) * Provider: Saskia CHAPMAN PA-C Date: 1 Generated for Printing/Faxing/eTransmitting on:?03/16/2025 06:05 PM EST
--- OUTSIDE RECORDS SUMMARY | 2025-01-19 05:15 | XMS_ITS ---
Author Organization The [facility] in [place] Address [address] [place] [address] Care Team Providers Care Glass Technician Name Role Phone Benito Moreau DO Primary Care Provider Unavailab AKOSUA Solis Unavailable [phone] REASON FOR VISIT bm PDT 1, re-eval A: epigastric skin Encounters Encounter Location Date Provider Diagnosis [facility] [address] [place] [address] 01/19/2025 AKOSUA CHAPMAN Actinic keratosis L57.0 Assessments Encounter Date Diagnosis (ICD Code) Assessment Notes Treatment Notes Treatment Clinical Notes Section Notes 01/19/2025 Actinic keratosis (ICD-10 - L57. 0) Plan Of Treatment Next Appt Details Provider Name:AKOSUA Justyn DUSTIN HR, 06/29/2025 01:00:00 PM, [address] [place], [address], Progress Notes * Hesham RICARDO DDOB: [birth year] (79 yo M)Acc No.[id number]:01/19/2025 UNLOCKED PROGRESS NOTE Progress Note Patient: Hesham WILLARD :?CHACHA FRIAS-CDOB:1945???Age: 79 Y???Sex:MaleDate:01/19/2025Phone:[phone]:[address] [place], [place] [address]Pcp:Anila Saeed In:09:49 AM ESTCheck Out: 11:18 AM EST Subjective: * Chief Complaints: * 1 . bm PDT 1, re-eval A: epigastric skin. * Medical History: Objective: * Vitals: Assessment: * Assessment: 1.?Actinic keratosis - L57.0??? Plan: * Treatment: * Procedure Codes: 9 6574 DBRDMT PRMLG LES W/PDT, J7308 AMINOLEVULINIC ACID HCL TOP 20% 1 U, TthNo: CHEO, Srfc: , Modifiers: CHEO * * Electronic signature of AKOSUA CHAPMAN PA-C, [id number] on 03/16/2025 at 06:03 PM ESTSign off status: PendingVisit Status:?CHK (Check Out) * Provider: Saskia CHAPMAN PA-C Date: Generated for Printing/Faxing/eTransmitting on:?03/16/2025 06:03 PM EST
--- OUTSIDE RECORDS SUMMARY | 2025-01-24 08:30 | XMS_ITS ---
Author Organization The [facility] in [place] Address [address] [place] [address] Care Team Providers Care Body Stylist Name Role Phone Keith Moreau DO Primary Care Provider Unavailab KEITH Tucker Unavailable [phone] REASON FOR VISIT SCC left distal pretibial region [id number] Encounters Encounter Location Date Provider Diagnosis [facility] [address] [place] [address] 01/24/2025 KEITH VELÁSQUEZ Venous insufficiency (chronic) (peripheral) [...] Treatment Next Appt Details Provider Name:AKOSUA MORSE, 06/29/2025 01:00:00 PM, [address] [place], [address], Progress Notes * Hesham RICARDO DDOB: [birth year] (79 yo M)Acc No.[id number]:01/24/2025 UNLOCKED PROGRESS NOTE Patient:?Hesham RICARDO :?KEITH VELÁSQUEZ, MDDOB:1945???Age:79 Y ???Sex:MaleDate:01/24/2025Phone:[phone]:[address], [phone]:Anila Saeed In:01:21 PM ESTCheck Out:03:14 PM EST Subjective: * Chief Complaints: * 1 . SCC left distal pretibial region [id number]. * Medical History: Objective: * Vitals: Assessment: * Assessment: 1.?Venous insufficiency (chronic) (peripheral) - I87.2???2.?Squamous cell c arcinoma of skin of left lower limb, including hip - C44.729??? Plan: * Treatment: * Procedure Codes: 1 7313 MOHS, 1 STAGE, T/A/L, 26002 MOHS, ADDL STAGE, T/A/L, Units: 2.00 * * Electronic signature of KEITH VELÁSQUEZ MD on 03/16/2025 at 06:04 PM ESTSign off status: PendingVisit Status:?CHK (Check Out) * Provider: Jeff VELÁSQUEZ MD Date: 1 03/26/2024 Generated for Printing/Faxing/eTransmitting on:?03/16/2025 06:04 PM EST
--- OUTSIDE RECORDS SUMMARY | 2025-02-02 08:15 | XMS_ITS ---
Author Organization [facility] in [place] Address [address] [place] [address] Care Team Providers Care Structural Welder Name Role Phone Benito Moreau DO Primary Care Provider Unavailab AKOSUA Solis Unavailable [phone] REASON FOR VISIT bm PDT 2 Encounters Encounter Location Date Provider Diagnosis [facility] [address] [place] [phone] 02/02/2025 AKOSUA CHAPMAN Plan Of Treatment Next Appt Details Provider Name:AKOSUA CHAN MINI, 06/29/2025 01:00:00 PM, [address] [place] [address], [phone], Progress Notes * Hesham RICARDO DDOB: [birth year] (79 yo M)Acc No.[id number]:02/02/2025 UNLOCKED PROGRESS NOTE Progress Note Patient: Osmani Hesham FOX :?CUATE FRIASCDOB:1945???Age: 79 Y???Sex:MaleDate:02/02/2025Phone:[phone]:[address] [place] [id number]:Benito Moreau DO Subjective: * Chief Complaints: * 1 . bm PDT 2. * Medical History: Objective: * Vitals: Assessment: Plan: * Treatment: * * Electronic signature of AKOSUA CHAPMAN PA-C, [id number] on 03/16/2025 at 06:04 PM ESTSign off status: PendingVisit Status:?LATE CANC (Late Cancel) * Provider: Saskia CHAPMAN PA-C Date: 04/04/2024 Generated for Printing/Faxing/eTransmitting on:?03/16/2025 06:04 PM EST
--- OUTSIDE RECORDS SUMMARY | 2025-03-01 04:00 | XMS_ITS ---
Author Organization [facility] [place] Address [address] [place] [address] Care Team Providers Care Felt Machine Mechanic Name Role Phone Benito Moreau DO Primary Care Provider Unavailab AKOSUA Solis Unavailable [phone] REASON FOR VISIT mts mod to severe DN C: right proximal posterior upper arm [id number] start PDT#3 first Encounters Encounter Location Date Provider Diagnosis [facility] [address] [place] [address] 03/01/2025 AKOSUA CHAPMAN Melanocytic nevi of right upper limb, including shoulder D22.61 and Actinic keratosis L57.0 Assessments Encounter Date Diagnosis (ICD Code) Assessment Notes Treatment Notes Treatment Clinical Notes Section Notes 03/01/2025 Melanocytic nevi of right upper limb, including shoulder (ICD-10 - D22.61) 5Actinic keratosis (ICD-10 - L57.0) Plan Of Treatment Next Appt Details Provider Name:AKOSUA CHAN HROW, 06/29/2025 01:00:00 PM, [address] [place], [address], Progress Notes * Hesham RICARDO DDOB: [birth year] (79 yo M)Acc No.[id number]:03/01/2025 UNLOCKED PROGRESS NOTE Patient:?Hesham RICARDO :?CHACHA FRIAS-CDOB:1945???Age: 79 Y???Sex:MaleDate:03/01/2025Phone:[phone]:[address], [phone]:Anila Saeed In:08:59 AM ESTCheck Out: 08:57 AM EST Subjective: * Chief Complaints: * 1 . mts mod to severe DN C: right proximal posterior upper arm [id number] start PDT#3 first. * Medical History: Objective: * Vitals: Assessment: * Assessment: 1.?Melanocytic nevi of right upper limb, including shoulder - D22.61???2.?A ctinic keratosis - L57.0??? Plan: * Treatment: * Procedure Codes: 2031 REPR. INTERM [place], [address] DBRDMT PRMLG LES W/PDT, 29545 EXC.CARMEN LES TRUNK,ARM,LEG, TthNo: 59, Srfc: , Modifiers: 59 , J7308 AMINOLEVULINIC ACID HCL TOP 20% 1 U, TthNo: JZ, Srfc: , Modifiers: JZ * * Electronic signature of AKOSUA CHAPMAN PA-C, [id number] on 03/16/2025 at 06:03 PM ESTSign off status: PendingVisit Status:?CHK (Check Out) * Provider: Saskia CHAPMAN PA-C Date: 05/02/2024 Generated for Printing/Faxing/eTransmitting on:?03/16/2025 06:03 PM EST
--- OUTSIDE RECORDS SUMMARY | 2025-03-01 04:15 | XMS_ITS ---
Author Organization [facility] [place] Address [address] [place] [address] Care Team Providers Care Hardscape Foreman Name Role Phone Benito Moreau DO Primary Care Provider Unavailab AKOSUA Solis Unavailable [phone] REASON FOR VISIT PDT#2 $10 Encounters Encounter Location Date Provider Diagnosis [facility] [address] [place] [address] 03/01/2025 AKOSUA CHAPMAN Plan Of Treatment Next Appt Details Provider Name:AKOSUA MORSE, 06/29/2025 01:00:00 PM, [address] [place] [address], [address], Progress Notes * Hesham RICARDO DDOB: [birth year] (79 yo M)Acc No.[id number]:03/01/2025 UNLOCKED PROGRESS NOTE Progress Note Patient: Osmani Hesham FOX :?CHACHA FRIAS-CDOB:1945???Age: 79 Y???Sex:MaleDate:03/01/2025Phone:[phone]:[address] [place] [address]Pcp:Anila Saeed In:08:49 AM ESTCheck Out: 10:08 AM EST Subjective: * Chief Complaints: * 1 . PDT#2 $10. * Medical History: Objective: * Vitals: Assessment: Plan: * Treatment: * * Electronic signature of AKOSUA CHAPMAN PA-C, [id number] on 03/16/2025 at 06:05 PM ESTSign off status: PendingVisit Status:?OFF CANC (OFFICE CANCEL) * Provider: Saskia CHAPMAN PA-C Date: 1 05/02/2024 Generated for Printing/Faxing/eTransmitting on:?03/16/2025 06:05 PM EST
--- OUTSIDE RECORDS SUMMARY | 2025-03-15 04:00 | XMS_ITS ---
Author Organization [facility] [place] Address [address] [place] [address] Care Team Providers Care Under Cutting Machine Operator Name Role Phone Benito Moreau DO Primary Care Provider Unavailab AKOSUA Solis [phone] REASON FOR VISIT mts well SCC B: right proximal radial dorsal forearm [id number] AND Suture removal rt prox post. upper arm Encounters Encounter Location Date Provider Diagnosis [facility] [address] [place] [address] 03/15/2025 AKOSUA CHAPMAN Inflammatory disorders of scrotum N49.2 ; Encounter for removal of sutures Z48.02 ; Squamous cell carcinoma of skin of right upper limb, 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 and Actinic keratosis L57.0 Assessments Encounter Date Diagnosis (ICD Code) Assessment Notes Treatment Notes Treatment Clinical Notes Section Notes 03/15/2025 Inflammatory disorders of scrotu m (ICD-10 - N49.2) 03/15/2025Encounter for removal of sutures (ICD-10 - Z48.02)03/15/2025Squamous cell carcinoma of skin of right upper limb, including shoulder (ICD-10 - C44.622)03/15/2025tinic keratosis (ICD-10 - L57.0) Plan Of Treatment Next Appt Details Provider Name:AKOSUA MORSE, 06/29/2025 01:00:00 PM, [address] [place], [address], Progress Notes * Hesham RICARDO DDOB: [birth year] (79 yo M)Acc No.[id number]:03/15/2025 UNLOCKED PROGRESS NOTE Patient:?Hesham RICARDO :?CUATE FRIASCDOB:1945???Age: 79 Y???Sex:MaleDate:03/15/2025Phone:[phone]:[address] [place] [address]Pcp:Anila Saeed In:08:56 AM ESTCheck Out: 09:34 AM EST Subjective: * Chief Complaints: * 1 . mts well SCC B: right proximal radial dorsal forearm [id number] AND Suture removal rt prox post. upper arm. * Medical History: Objective: * Vitals: Assessment: * Assessment: 1.?Inflammatory disorders of scrotum - N49.2???2.?Encounter for removal of sutures - Z48.02???3.?Squamous cell carcinoma of skin of right upper limb, inclu ding shoulder - C44.622???4.?Actinic keratosis - L57.0??? Plan: * Treatment: * Procedure Codes: 1 1603 EXCIS MALIG LESION 2-3CM, [address]208 DBRDMT PRMLG LES W/PDT, J7308 AMINOLEVULINIC ACID HCL TOP 20% 1 U, TthNo: JZ, Srfc: , Modifiers: JZ * * Electronic signature of AKOSUA CHAPMAN PA-C, [id number] on 03/16/2025 at 06:04 PM ESTSign off status: PendingVisit Status:?CHK (Check Out) * Provider: Saskia CHAPMAN PA-C Date: 1 05/16/2024 Generated for Printing/Faxing/eTransmitting on:?03/16/2025 06:04 PM EST
--- OUTSIDE RECORDS SUMMARY | 2025-03-15 04:15 | XMS_ITS ---
Author Organization [facility] in [place] Address [address] [place] [address] Care Team Providers Care Cardiac Rn Name Role Phone Benito Moreau DO Primary Care Provider Unavailab AKOSUA Solis Unavailable [phone] REASON FOR VISIT bm PDT #3 copay $10 Encounters Encounter Location Date Provider Diagnosis [facility] [address] [place] [address] 03/15/2025 AKOSUA CHAPMAN Plan Of Treatment Next Appt Details Provider Name:AKOSUA MORSE, 06/29/2025 01:00:00 PM, [address] [place] [address], [address], Progress Notes * Hesham RICARDO DDOB: [birth year] (79 yo M)Acc No.[id number]:03/15/2025 UNLOCKED PROGRESS NOTE Progress Note Patient: Osmani Hesham FOX :?CHACHA FRIAS-CDOB:1945???Age: 79 Y???Sex:MaleDate:03/15/2025Phone:[phone]:[address] [place] [address]Pcp:Anila Saeed In:08:56 AM ESTCheck Out: 10:16 AM EST Subjective: * Chief Complaints: * 1 . bm PDT #3 copay $10. * Medical History: Objective: * Vitals: Assessment: Plan: * Treatment: * * Electronic signature of AKOSUA CHAPMAN PA-C, [id number] on 03/16/2025 at 06:05 PM ESTSign off status: PendingVisit Status:?CHK (Check Out) * Provider: Saskia CHAPMAN PA-C Date: 05/16/2024 Generated for Printing/Faxing/eTransmitting on:?03/16/2025 06:05 PM EST
[2025-03-16 17:32] VITALS: BP 162/101; PULSE 80; O2SAT 98; BMI 21.5
--- NOTE | 2025-03-16 17:42 | CT_ITS ---
The [address] [address] Patient Name: JB VAIL MRN: [id number] date: 1945 Sex: M Assigned Patient Location: ED.MAIN Current Patient Location: ED.MAIN Accession/Order Number: [id number] Exam Date: 03/16/2025 18:42 Report Date: 03/16/2025 19:12 At the request of: ANCELMO NEFF DO Procedure: CT pelvis w con CT pelvis with contrast TECHNIQUE: The CT exam was performed using one or more the following dose reduction techniques: Automated exposure control, adjustment of the MA and/or Kv according to patient size, or use of the iterative reconstruction technique. COMPARISON: 03/25/2019 HISTORY: Right scrotal abscess. Right scrotal wall thickening. small superficial abscess measuring 1 cm. Inflammatory changes of the right inguinal canal. Small right inguinal nodes likely reactive. No subcutaneous air. No abscess. Urinary bladder wall thickening. Underdistention versus cystitis. No pelvic fluid collection. Moderate stool. Nondistended small bowel loops. No focal inflammatory change. Degenerative change. No acute bony findings. Atherosclerosis. CT/CT pelvis w con IMPRESSION: Scrotal Wall thickening consistent with cellulitis. Inflammatory extension near the inguinal canal. Reactive lymph nodes. No subcutaneous air. Small superficial scrotal abscess. No retroperitoneal or intraperitoneal inflammatory changes. Impression dictated by: Nick Kurtz M.D. 03/16/2025 7:12 PM Dictation Location: [facility] Electronically authenticated by: [id number] Y Date: 03/16/2025 19:12
--- NOTE | 2025-03-16 17:48 | ED.GENADUL1 ---
HPI HPI - General Adult General Chief complaint: Urogenital-Male Stated complaint: Testicular Pain Time Seen by Provider: 03/16/25 17:32 Source: patient Mode of arrival: Wheelchair History of Present Illness HPI narrative: Patient is a 79-year-old male presenting to the emergency department for evaluation of right-sided scrotal pain. Patient states that over the last 20 hours he has been having increasing redness, drainage, and tenderness in the right scrotum. He states he has had this once in the past. He states he has been squeezing pus out of the right scrotum starting yesterday. He denies any difficulty with urination. His it intern recently started ciprofloxacin yesterday for both the scrotal discomfort and his other skin conditions. He denies being a diabetic. Denies constipation, diarrhea, abdominal pain, fevers, chills, flulike symptoms, chest pain, shortness of breath. Related Data Home Medications ?Medication ?Instructions ?Recorded ?Confirmed simvastatin 40 mg tablet 40 mg PO DAILY 06/27/23 03/16/25 ciprofloxacin HCl 500 mg tablet 500 mg PO BID 03/16/25 03/16/25 donepezil 10 mg tablet 10 mg PO DAILY 03/16/25 03/16/25 omeprazole 40 mg capsule,delayed 40 mg PO BID 03/16/25 03/16/25 release venlafaxine 150 mg 150 mg PO DAILY 03/16/25 03/16/25 capsule,extended release 24 hr Previous Rx's ?Medication ?Instructions ?Recorded bacitracin 500 unit/gram topical 1 applic topical DAILY #14 grams 01/27/25 ointment Allergies Allergy/AdvReac Type Severity Reaction Status Date / Time penicillin G Allergy Mild Verified 09/22/23 08:59 Sulfa (Sulfonamide Allergy Mild Verified 09/22/23 08:59 Antibiotics) Opioid HPI Opioid Management Most Recent Opioid Data: Last Pain Scale 10 Today, 17:54 Last MAR Pain Assessment Today, 17:54 Review of Systems ROS Status of ROS 10 or more systems reviewed and unremarkable except as noted in history and below [facility] Medical History (Updated 03/16/25 @ 18:54 by Latrell Michaud DO) Dementia ?F03.90 - Unspecified dementia, unspecified severity, without behavioral disturbance, psychotic disturbance, mood disturbance, and anxiety (ICD-10) Depression ?F32.A - Depression, unspecified (ICD-10) High cholesterol ?E78.00 - Pure hypercholesterolemia, unspecified (ICD-10) Social History Little interest or pleasure in doing things: not at all Feeling down, depressed, or hopeless: not at all Exam Narrative Exam Narrative: CONSTITUTIONAL: Appears to be in acute pain, nontoxic, mentating appropriately, answering questions and following commands appropriately SKIN: Was warm and dry. EYES: Sclerae white. EARS, NOSE, THROAT: Moist oral mucosa. RESPIRATORY: Nonlabored respirations CARDIOVASCULAR: Normal rate and regular rhythm. There is no S3, S4, murmur, rub. GASTROINTESTINAL: Abdomen is soft, nontender, and nondistended. GENITOURINARY: Genitourinary examination performed with a nurse fuse spooler demonstrated right-sided scrotal abscess with induration, purulent drainage, erythema, and tenderness to palpation. The bilateral testicles are descended with intact hemostatic reflexes. There is tender right sided inguinal lymphadenopathy. Left testicle within normal limits. The penis is within normal limits without ulcerations or lesions. No urethral discharge. The perineum is without crepitus or gangrenous changes. Intact cremasteric reflexes bilaterally. MUSCULOSKELETAL: No peripheral edema. NEUROLOGIC: Patient is awake and alert. Facies were symmetrical. Constitutional Vital Signs, click to edit/add: Last Vital Signs Pulse 66 03/16/25 18:29 Resp 16 03/16/25 18:29 BP 146/81 H 03/16/25 18:29 Pulse Ox 98 03/16/25 18:29 O2 Del Method Room Air 03/16/25 17:32 Course Vital Signs Vital signs: Vital Signs Pulse Rate 80 03/16/25 17:32 Respiratory Rate 22 H 03/16/25 17:32 Blood Pressure 162/101 H 03/16/25 17:32 Pulse Oximetry 98 03/16/25 17:32 Oxygen Delivery Method Room Air 03/16/25 17:32 Pulse Rate 66 03/16/25 18:29 Respiratory Rate 16 03/16/25 18:29 Blood Pressure 146/81 H 03/16/25 18:29 Pulse Oximetry 98 03/16/25 18:29 Oxygen Delivery Method Room Air 03/16/25 17:32 Medical Decision Making [facility] Narrative Medical decision making narrative: Patient is a 79-year-old male presenting to the emergency department with a 20-hour history of right-sided scrotal pain. Vital signs on arrival are significant for hypertension and mild tachypnea, likely related to his acute pain. He is afebrile and hemodynamically stable. Examination as noted above. Patient's presentation is consistent with right-sided scrotal abscess. I have lower concern for Jemma's gangrene or intrascrotal infection, however CT pelvis was ordered to rule this etiology out. IV was established and laboratory studies were obtained. He was given IV Dilaudid for pain. Laboratory studies were significant for leukocytosis of 15.1. No anemia. No significant electrolyte or metabolic derangement. No evidence of acute renal injury. Mildly hyperglycemic. No lactic acidosis. My shift is coming to an end. At the time of signout to Dr. Block, CT pelvis is pending. Lab Data Lab results reviewed: Yes I reviewed the patient's lab results Labs: Lab Results 03/16/25 Range/Units 17:50 WBC 15.1 H (4.0-11.0) 10^3/uL RBC 4.67 L (4.70-6.10) 10^6/uL Hgb 14.6 (14.0-18.0) g/dL Hct 44.0 (42.0-54.0) % MCV 94.2 H (80.0-94.0) fL MCH 31.3 (25.9-34.0) pg MCHC 33.2 (29.9-35.2) g/dL RDW 12.1 (11.0-15.0) % Plt Count 317 (150-450) 10^3/uL MPV 9.3 L (9.5-13.5) fL Neut % (Auto) 80.1 H (43.0-75.0) % Lymph % (Auto) 11.2 L (20.5-60.0) % [place] % (Auto) 6.9 (1.7-12.0) % Eos % (Auto) 1.0 (0.9-7.0) % Baso % (Auto) 0.3 (0.2-2.0) % Neut # (Auto) 12.1 H (1.4-6.5) 10^3/uL Lymph # (Auto) 1.7 (1.2-3.8) 10^3/uL [place] # (Auto) 1.1 H (0.3-0.8) 10^3/uL Eos # (Auto) 0.2 (0.0-0.7) 10^3/uL Baso # (Auto) 0.0 (0.0-0.1) 10^3/uL Abs Immat Gran (auto) 0.07 H (0.00-0.03) 10^3/uL Imm/Tot Granulo (auto) 0.5 (0.0-0.5) % Sodium 139 (136-145) mmol/L Potassium 3.8 (3.5-5.1) mmol/L Chloride 100 (98-107) mmol/L Carbon Dioxide 31.3 (21.0-32.0) mmol/L Anion Gap 11.5 BUN 21.0 H (7.0-18.0) mg/dL Creatinine 0.82 (0.70-1.30) mg/dL Est GFR ( Amer) >60 (>=60 mL/min/1.73m^2) Est GFR (Non-Af Amer) >60 (>=60 mL/min/1.73m^2) BUN/Creatinine Ratio 25.6 Glucose 127 H (74-106) mg/dL Lactate 1.7 (0.4-2.0) mmol/L Calcium 9.5 (8.5-10.1) mg/dL Discharge Plan Discharge Patient Disposition: Still a Patient
[2025-03-16] MEDS: HYDROMORPHONE HCL 0.5 MG/0.5 ML SYRINGE IV (17:54)
--- OUTSIDE RECORDS SUMMARY | 2025-03-16 18:04 | XMS_ITS | Clinical Summary ---
Author Organization [facility] Address [address] [place] [address] Care Team Providers Care Linen Aide Name Role Phone Benito Moreau MD Primary Care Provider [phone] Génesis Hodges HR MANAGER Unavailable [phone] TimothyJean Paul woodsontristian DO Unavailable [phone] Allergies Active AllergyReactionsCriticalityNoted FkueLpeejjwaJivzicnytsa49/03/2025Sulfa Cfakpfjgnsl67/03/2025 Medications MedicationSigDispense QuantityRefillsLast FilledStart DateEnd DateStatus simvastatin [...] RecordedSex Assigned at BirthNot on file Legal JehWgnq2807/22/2022 8:32 PM EDTGender IdentityNot on fileSexual Orientation Not on file Last Filed Vital Signs Vital SignReadingTime TakenCommentsBlood Gawlhbzm814/7204 8:33 AM EDT Khgli3121 8:33 AM EDTTemperature--Respiratory Rate--Oxygen Yfstjrsbbt96% 04/26/2024 8:57 AM ESTInhaled Oxygen Concentration--Ztliqe92.2 kg (157 lb) 07/15/2024 8:33 AM QQFLodslw168.8 cm (5' 10 )07/15/2024 8:33 AM EDTBody Mass Index22.53007/15/2024 8:33 AM EDT Plan of Treatment Health MaintenanceDue DateLast DoneCommentsInfluenza Vaccine (#1)11/22/2024 01/01/2024, 01/20/2023, 12/06/2021, Additional history existsPneumococcal Vaccine: 65+ ZwaidEldbuukmk07/06/2021, 12/23/2019, 12/23/2019, Additional history exists Insurance Care Teams Team MemberRelationshipSpecialtyStart DateEnd Date Benito Moreau MD [address] [place], [place] [address], [place] [address] PCP - GeneralFamily Medicine04/26/24 Génesis Hodges NP [address] [place] [id number] Nurse PractitionerNeurology06/16/24 Tremayne Aguirre DO [address] [place] [address] Referring PhysicianNeurology06/16/24
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
--- OUTSIDE RECORDS SUMMARY | 2025-03-16 18:05 | XMS_ITS | Clinical Summary ---
Author Organization [facility] Address [address] [facility] [place] [address] Phone Care Team Providers Care Firewall Administrator Name Role Phone Unavailable Primary Care Provider Unavailabl e Social History Tobacco UseTypesPacks/DayYears UsedDateSmoking Tobacco: Never AssessedSex and Gender InformationValueDate RecordedSex Assigned at BirthNot on fileLegal Sex Male02/15/2022 9:07 PM ESTGender IdentityNot on fileSexual OrientationNot on file Plan of Treatment Not on file
--- NOTE | 2025-03-16 18:08 | PC.NURSE ---
right testicle is higher in pelvic area than the left. pt reports the left testicle just fell down today. pt is squeezing an open area to right testicle to remove the infection. pt has been placed on ATB by another physician for this. pt picks at skin, obvious d/t tops of bilat hands having areas of pick gonzalez.
[2025-03-16 18:18] LABS: Hematocrit 44.0 % (42.0-54.0); Hemoglobin 14.6 g/dL (14.0-18.0); Immature Granulocytes Abs Auto 0.07 10^3/uL (0.00-0.03); Immature Granulocytes Pct Auto 0.5 % (0.0-0.5); Lymphocytes Absolute Auto 1.7 10^3/uL (1.2-3.8); Mean Corpuscular HGB Conc 33.2 g/dL (29.9-35.2); Mean Corpuscular Hemoglobin 31.3 pg (25.9-34.0); Mean Corpuscular Volume 94.2 fL (80.0-94.0); Platelet Count 317 10^3/uL (150-450); Red Blood Count 4.67 10^6/uL (4.70-6.10); White Blood Count 15.1 10^3/uL (4.0-11.0)
[2025-03-16 18:27] LABS: Anion Gap 11.5; Blood Urea Nitrogen 21.0 mg/dL (7.0-18.0); Calcium 9.5 mg/dL (8.5-10.1); Carbon Dioxide 31.3 mmol/L (21.0-32.0); Chloride 100 mmol/L (98-107); Estimated GFR (African America >60 (>=60 mL/min/1.73m^2); Estimated GFR (Non-African Ame >60 (>=60 mL/min/1.73m^2); Glucose 127 mg/dL (74-106); Potassium 3.8 mmol/L (3.5-5.1); Sodium 139 mmol/L (136-145)
[2025-03-16 18:29] VITALS: BP 146/81; PULSE 66; O2SAT 98
[2025-03-16 18:35] LABS: Lactate/Lactic Acid 1.7 mmol/L (0.4-2.0)
--- NOTE | 2025-03-16 18:40 | PC.NURSE ---
ER DR Michaud states he felt both testicles in scrotum. abscess felt up higher near the pelvis.
[2025-03-16] MEDS: DOXYCYCLINE MONOHYDRATE 100 MG CAPSULE PO (19:43)
[2025-03-16] MEDS: HYDROCODONE/ACET 5-325 MG TABLET 4 TAB PO (19:44)
[2025-03-16 19:51] VITALS: BP 130/70; PULSE 68; O2SAT 98
== END 2025-03-16 20:05 | disposition home or self-care (01) ==
PROVIDERS: Student in an Organized Health Care Education/Training Program; Emergency Provider Internal Medicine; PCP Family Medicine
DX: N49.2 Inflammatory disorders of scrotum (principal)
CPT/HCPCS: 36415; 72193; 80048; 83036; 83605; 85025; 96374; 99285; J1171; Q9967